=== PATIENT | male | born 1975 | race Caucasian/White ===

== ENCOUNTER 2020-04-09 10:04 | Outpatient (REF) | payer MEDICARE, MEDICAID, SELFPAY ==
[2020-04-09 12:37] LABS: Valproate 83.7 mcg/mL (50.0-100.0)
== END 2020-04-09 10:05 | disposition home or self-care (01) ==
LOC: HO.LAB 10:04
PROVIDERS: Visit Provider General Practice
DX: F41.9 Anxiety disorder, unspecified (principal); Z79.899 Other long term (current) drug therapy
CPT/HCPCS: 80164

== ENCOUNTER 2020-09-06 09:54 | Outpatient (REF) | payer MEDICARE, MEDICAID, SELFPAY ==
[2020-09-06 11:18] LABS: Ammonia 33 umol/L (13-55)
[2020-09-06 11:29] LABS: Alanine Aminotransferase 15 U/L (0-40); Albumin Level 4.4 g/dL (3.5-5.0); Alkaline Phosphatase 49 U/L (39-117); Aspartate Amino Transferase 15 U/L (5-37); Bilirubin Direct < 0.2 mg/dL (0.0-0.5); Bilirubin Total 0.4 mg/dL (0.0-1.0)
[2020-09-06 11:59] LABS: Valproate 41.1 mcg/mL (50.0-100.0)
== END 2020-09-06 09:55 | disposition home or self-care (01) ==
LOC: HO.HMGCLDS 09:54
PROVIDERS: Visit Provider General Practice
DX: F41.9 Anxiety disorder, unspecified (principal); Z79.899 Other long term (current) drug therapy
CPT/HCPCS: 36415; 80076; 80164; 82140

== ENCOUNTER 2021-12-31 15:11 | Observation (INO) | payer MEDICARE, MEDICAID, SELFPAY ==
--- NOTE | ~2021-12-31 | XR_ITS ---
EXAMINATION: XR CHEST CLINICAL INFORMATION: Seizure. COMPARISON: None TECHNIQUE: Frontal view of the chest was obtained. FINDINGS: No significant abnormality is noted involving the heart, lungs, mediastinum, bony thorax or soft tissues. XR/XR chest 1V IMPRESSION: No acute cardiopulmonary process.
--- NOTE | ~2021-12-31 | CT_ITS ---
EXAMINATION: NONCONTRAST HEAD CT NONCONTRAST CERVICAL SPINE CT INDICATION INFORMATION: Seizure. Head strike. COMPARISON: 01/24/2017 TECHNIQUE: Separate noncontrast CT examinations of the head and cervical spine were performed. Coronal and sagittal images were created for each examination at the technologist workstation. This CT examination was performed using dose optimization techniques as appropriate, variously including the following: *Automated exposure control *Adjustment of mA and/or kV according to patient size (this includes techniques or standardized protocols for targeted exams where dose is matched to indication/reason for exam; i.e. extremities or head) *Use of iterative reconstruction technique DLP: 07/05/2002 mGy-cm FINDINGS: Head: There is no evidence of acute intracranial hemorrhage or territorial infarction. No abnormal mass effect or midline shift is seen. Pérez to white matter differentiation is well preserved. No extra-axial fluid collections are identified. No hydrocephalus. Asymmetric atrophy of the left cerebral hemisphere. There is no abnormal attenuation within the brain parenchyma. No acute osseous or soft tissue abnormality. The mastoid air cells and visualized portions of the paranasal sinuses are well aerated. Cervical spine: There is anatomic alignment of the vertebral bodies and posterior elements. The atlantoaxial and atlantooccipital articulations are intact. Vertebral body heights are maintained. Disc space narrowing at C5-C6 with endplate osteophyte formation. There is scoliotic curvature of the spine. No evidence of acute fracture. No prevertebral soft tissue swelling. Visualized portions of the lung apices are unremarkable. The thyroid gland is unremarkable. CT/CT cervical spine wo con IMPRESSION: 1. No acute intracranial finding. Asymmetric left cerebral hemispheric atrophy. 2. No acute fracture or malalignment of the cervical spine.
[2021-12-31 15:23] VITALS: BP 116/78; PULSE 102; O2SAT 98
[2021-12-31 15:29] VITALS: BP 128/76; PULSE 89; RESP 14; TEMP 37.2; O2SAT 100
[2021-12-31 15:31] VITALS: BP 128/76; PULSE 89; RESP 18; TEMP 37.2; O2SAT 99; BMI 21.1
--- NOTE | 2021-12-31 15:45 | PC.NURSE ---
pt a&ox3, vss, pt has a seizure hx, switched to keppra about 2 months ago, first seizure since medication change. one unwitnessed, 2nd witnessed seizure by residential staff about 30-40 seconds. +ve head strike, pt has contusion above left eyebrow, pt denies pain at this time. seizure precautions initiated, color television console monitor applied - NSR. provider in room.
--- NOTE | 2021-12-31 15:48 | PC.NURSE ---
Allen Bustos - [facility] at [facility] ([facility]) .
--- NOTE | 2021-12-31 16:00 | ECG_ITS ---
Test Reason : seizure Blood Pressure : / mmHG Vent. Rate : 094 BPM Atrial Rate : 094 BPM P-R Int : 120 ms QRS Dur : 086 ms QT Int : 324 ms P-R-T Axes : 031 053 062 degrees QTc Int : 405 ms Normal sinus rhythm Normal ECG When compared with ECG of 28-MAY-2009 11:00, No significant change was found Referred By: Carolyn Parkinson Electronically Signed By:LUIS GÓMEZ
[2021-12-31] MEDS: LORazepam 2 MG/ML VIAL IM (16:18)
[2021-12-31 16:43] LABS: MANUAL DIFF FLAG NO
[2021-12-31 16:47] LABS: Basophils Percent Auto 0.2 % (0-2); Eosinophils Percent Auto 0.2 % (0-4); Hematocrit 39.2 % (42.0-52.0); Hemoglobin 13.4 g/dl (14.0-18.0); Imm Gran Abs Auto 0.02 X10*3/uL (0.00-0.03); Imm Gran Pct Auto 0.4 % (0.0-0.4); Lymphocytes Percent Auto 19.8 % (20-40); Mean Corpuscular HGB Conc 34.2 g/dl (31.0-36.0); Mean Corpuscular Hemoglobin 32.6 pg (27.0-33.0); Mean Corpuscular Volume 95.4 fL (80.0-98.0); Mean Platelet Volume 9.4 fL (9.4-12.4); Monocytes Absolute Auto 0.5 X10*3/uL (0.1-1.2); Monocytes Percent Auto 9.7 % (2-11); Neutrophils Absolute Auto 3.4 x10*3/uL (2.0-8.3); Neutrophils Percent Auto 69.7 % (45-73); Platelet Count 203 X10*3/uL (160-400); Red Blood Count 4.11 X10*6/uL (4.60-5.80); Red Cell Distribution Width 12.3 % (11.0-16.0); White Blood Count 4.8 X10*3/uL (4.8-10.8)
[2021-12-31 17:07] LABS: Alanine Aminotransferase 13 U/L (0-40); Albumin Level 4.6 g/dL (3.5-5.0); Alkaline Phosphatase 41 U/L (39-117); Anion Gap 16 (12-20); Aspartate Amino Transferase 18 U/L (5-37); Bilirubin Direct < 0.2 mg/dL (0.0-0.5); Bilirubin Total 0.2 mg/dL (0.0-1.0); Blood Urea Nitrogen 18 mg/dL (9-16); Calcium 9.4 mg/dL (8.4-10.2); Carbon Dioxide 23 mmol/L (22-29); Chloride 100 mmol/L (96-108); Creatinine Clr Calc Pharmacy 109.3; Estimated Glomerular Filt Rate > 60; Glucose Random 110 mg/dL (60-115); Lipase 22 U/L (8-78); Magnesium 1.8 mg/dL (1.6-2.6); Potassium 4.9 mmol/L (3.3-5.1); Sodium 134 mmol/L (135-145); Total Protein 7.3 g/dL (6.5-8.0)
--- NOTE | 2021-12-31 17:11 | ED_ITS ---
HPI - Seizure General Chief Complaint: Seizure Stated Complaint: seizure, eyebrow laceration Time Seen by Provider: 12/31/21 15:40 Source: patient and EMS Mode of arrival: EMS History of Present Illness HPI Narrative: 46-year-old male with past medical history anxiety, intellectual disability, seizure disorder on Depakote, carbamazepine, and Keppra presenting to the ED from long-term for 2 seizures [employer], 1st seizure unwitnessed, patient fell with + head strike, 2nd seizure shortly after patient maintained postural tone. Reports compliance with medications. Reports mild pain to forehead. Denies chest pain, shortness of breath, fever/recent sickness, cough, abdominal pain, nausea/vomiting. Denies taking anticoagulation MD complaint: seizure, possible seizure and feels seizure coming on Onset (ago): minute(s) Seizure History: Yes Place: [facility] Related Data Allergies Allergy/AdvReac Type Severity Reaction Status Date / Time No Known Allergies Allergy Verified 12/31/21 15:26 [No Known Allergies*] Review of Systems Review of Systems: Constitutional: No Fever, No Chills, No Fatigue, No Malaise ENT/Mouth: No Hearing loss, No Ear Pain, No Nasal Congestion, No sore throat, No Rhinorrhea, No Swallowing Difficulty Eyes: No Eye Pain, No Swelling, No Redness, No Vision Changes Cardiovascular: No Chest Pain, No SOB, No Dyspnea on Exertion,No Palpitations Respiratory: No Cough, No Sputum, No Dyspnea Gastrointestinal: No Nausea, No Vomiting, No Diarrhea, No Constipation, No Abdominal pain Genitourinary: No Dysuria, No Urinary Frequency, No Urinary Incontinence/ retention, No Flank Pain Musculoskeletal: No joint pain, No Myalgias, No Joint Swelling Skin: + Skin Lesions, No rash Neuro: No Weakness, No Numbness, No Paresthesias, No Loss of Consciousness, No Dizziness, + Head strike, +seizure Yes all other systems are reviewed and are negative Neurologic: Denies Abnormal speech present PMFSH Past Medical History Attestation statement: The following information was validated with the patient. Medical History Anxiety disorder, unspecified Intellectual disability Seizure disorder Social History Social History Alcohol intake: never Patient Tobacco Use Status: Never used Tobacco Use of substances other than those prescribed or required for medical reasons: No Advance Directives: No Advance Directives Information Provided: No Physical Exam Vital Signs: Vital Signs: Last Vital Signs Temp 98.9 F 12/31/21 15:31 Pulse 89 12/31/21 15:31 Resp 18 12/31/21 15:31 BP 128/76 12/31/21 15:31 Pulse Ox 99 12/31/21 15:31 O2 Del Method 12/31/21 15:31 BMI result Body Mass Index 21.1 Const: General: cooperative, healthy appearing and no acute distress Orientation/consciousness: patient oriented x3 Limitations: no limitations HEENT: Head: Yes normal to inspection, No Luis's sign, Yes hematoma (Left forehead with mild tenderness), No laceration and No raccoon eyes Ears: hearing grossly normal bilaterally General nose exam: Normal external nose present Face and sinus: Yes normal facial exam Throat: Yes posterior oropharynx normal Eyes: General: appearance normal, both eyes and all related structures Pupils: Equal, round and reactive pupils present EOM: EOMs intact bilaterally Neck: Other: No midline cervical spinous tenderness Neck: Yes normal visual inspection, Yes no lymphadenopathy and Yes no meningeal signs Resp: Effort & Inspection: normal respiratory effort and no respiratory distress Auscultation: clear to auscultation bilaterally, no rales, no rhonchi and no wheezes Cardio: Rate: regular rate Heart sounds: S1 normal heart sound present and S2 normal heart sound present GI: Inspection: Yes normal to inspection Palpation (GI): Soft to palpation, nontender, no guarding and not rigid : General: Yes no CVA tenderness Back/Spine/Pelvis: Other: No midline thoracic/lumbar spinous tenderness/step-off or deformity Back: no CVA tenderness Skin: Rashes: no rashes Wounds: no wounds Neuro: General: patient oriented x3, tone normal, moves all extremities, no meningeal signs, no focal motor deficits and CN's II-XI intact bilaterally Cranial nerves: Yes CN's II-XII intact bilaterally, Yes Equal, round and reactive pupils present and Yes Bilaterally intact EOM present Speech: No Abnormal speech present Gait exam (Neuro): Normal gait present Motor exam (neuro): 5/5 motor strength present throughout Extrem: General: Yes normal to inspection Course Course Course Narrative: -patient had witnessed seizure in the ED by long-term staff member, reportedly tonic clonic seizure. Patient did appear lethargic/postictal after incident > was given 2 mg of IM Ativan -consult in patient's neurologist Dr. Nito Tamayo at [facility] who reports patient has psychogenic and real seizures. -1720--no leukocytosis. COVID-19 negative XR chest 1V IMPRESSION: No acute cardiopulmonary process. -lactic acid elevated to 2.3 > consistent with true seizure. Will give additional 500mg IV Keppra in the ED. Plan to admit -1900--ED care transferred to [facility] pending CT results and admission MDM - Seizure MDM Narrative Medical decision making narrative: 46-year-old male with past medical history anxiety, intellectual disability, seizure disorder on Depakote, carbamazepine, and Keppra presenting to the ED from long-term for 2 seizures [employer], 1st seizure unwitnessed, patient fell with + head strike, 2nd seizure shortly after patient maintained postural tone. On exam vital signs stable, NAD, nontoxic appearing, hematoma noted to left forehead, no focal neuro deficits. long-term staff reports patient has been compliant with medications per their records. Concern for ICH vs infectious etiology vs metabolic abnormalities Plan: EKG, labs, UA, CXR, head/C-spine CT Differential Diagnosis Differential diagnosis: Likely intractable seizure disorder, focal seizure, generalized seizure and epileptic seizure Medical Records Attestation: I reviewed the patient's medical records. Lab Data Attestation: I reviewed the patient's lab results. Result diagrams: 12/31/21 16:36 12/31/21 16:51 Labs: Lab Results 12/31/21 12/31/21 12/31/21 Range/Units 16:35 16:36 16:51 WBC 4.8 (4.8-10.8) X10*3/uL RBC 4.11 L (4.60-5.80) X10*6/uL Hgb 13.4 L (14.0-18.0) g/dl Hct 39.2 L (42.0-52.0) % MCV 95.4 (80.0-98.0) fL MCH 32.6 (27.0-33.0) pg MCHC 34.2 (31.0-36.0) g/dl RDW 12.3 (11.0-16.0) % Plt Count 203 (160-400) X10*3/uL MPV 9.4 (9.4-12.4) fL Immature Gran % (Auto) 0.4 (0.0-0.4) % Neut % (Auto) 69.7 (45-73) % Lymph % (Auto) 19.8 L (20-40) % Craig % (Auto) 9.7 (2-11) % Eos % (Auto) 0.2 (0-4) % Baso % (Auto) 0.2 (0-2) % Lymph # (Auto) 1.0 L (1.2-4.9) X10*3/uL Craig # (Auto) 0.5 (0.1-1.2) X10*3/uL Eos # (Auto) 0.0 (0.0-0.4) X10*3/uL Baso # (Auto) 0.0 (0.0-0.2) X10*3/uL Abs Immat Gran (auto) 0.02 (0.00-0.03) X10*3/uL Absolute Neuts (auto) 3.4 (2.0-8.3) x10*3/uL Absolute Nucleated RBC 0.000 (0.0-0.012) X10*3/uL Nucleated RBC % (auto) 0.0 (0.0-0.2) /100WBC Sodium 134 L (135-145) mmol/L Potassium 4.9 (3.3-5.1) mmol/L Chloride 100 (96-108) mmol/L Carbon Dioxide 23 (22-29) mmol/L Anion Gap 16 (12-20) BUN 18 H (9-16) mg/dL Creatinine 0.68 (0.5-1.4) mg/dL Estim Creat Clear Calc 109.3 Estimated GFR > 60 Random Glucose 110 (60-115) mg/dL Lactic Acid (0.5-2.0) mmol/L Calcium 9.4 (8.4-10.2) mg/dL Magnesium 1.8 (1.6-2.6) mg/dL Total Bilirubin 0.2 (0.0-1.0) mg/dL Direct Bilirubin < 0.2 (0.0-0.5) mg/dL AST 18 (5-37) U/L ALT 13 (0-40) U/L Alkaline Phosphatase 41 (39-117) U/L Total Protein 7.3 (6.5-8.0) g/dL Albumin 4.6 (3.5-5.0) g/dL Lipase 22 (8-78) U/L Urine Color Urine Appearance Urine pH (5.0-8.0) Ur Specific [place] (1.005-1.025) Urine Protein (NEG-TRACE) MG/DL Urine Glucose (UA) (NEG) MG/DL Urine Ketones (NEG) MG/DL Urine Blood (NEG) Urine Nitrite (NEG) Ur Leukocyte Esterase (NEG) Valproic Acid 58.1 (50.0-100.0) mcg/mL Carbamazepine 7.0 (5.0-12.0) mcg/mL COVID-19 (JANICE) Negative (Negative) COVID-19 Clin Com See Note 12/31/21 12/31/21 Range/Units 16:51 17:34 WBC (4.8-10.8) X10*3/uL RBC (4.60-5.80) X10*6/uL Hgb (14.0-18.0) g/dl Hct (42.0-52.0) % MCV (80.0-98.0) fL MCH (27.0-33.0) pg MCHC (31.0-36.0) g/dl RDW (11.0-16.0) % Plt Count (160-400) X10*3/uL MPV (9.4-12.4) fL Immature Gran % (Auto) (0.0-0.4) % Neut % (Auto) (45-73) % Lymph % (Auto) (20-40) % Craig % (Auto) (2-11) % Eos % (Auto) (0-4) % Baso % (Auto) (0-2) % Lymph # (Auto) (1.2-4.9) X10*3/uL Craig # (Auto) (0.1-1.2) X10*3/uL Eos # (Auto) (0.0-0.4) X10*3/uL Baso # (Auto) (0.0-0.2) X10*3/uL Abs Immat Gran (auto) (0.00-0.03) X10*3/uL Absolute Neuts (auto) (2.0-8.3) x10*3/uL Absolute Nucleated RBC (0.0-0.012) X10*3/uL Nucleated RBC % (auto) (0.0-0.2) /100WBC Sodium (135-145) mmol/L Potassium (3.3-5.1) mmol/L Chloride (96-108) mmol/L Carbon Dioxide (22-29) mmol/L Anion Gap (12-20) BUN (9-16) mg/dL Creatinine (0.5-1.4) mg/dL Estim Creat Clear Calc Estimated GFR Random Glucose (60-115) mg/dL Lactic Acid 2.3 H* (0.5-2.0) mmol/L Calcium (8.4-10.2) mg/dL Magnesium (1.6-2.6) mg/dL Total Bilirubin (0.0-1.0) mg/dL Direct Bilirubin (0.0-0.5) mg/dL AST (5-37) U/L ALT (0-40) U/L Alkaline Phosphatase (39-117) U/L Total Protein (6.5-8.0) g/dL Albumin (3.5-5.0) g/dL Lipase (8-78) U/L Urine Color YELLOW Urine Appearance CLEAR Urine pH 7.0 (5.0-8.0) Ur Specific [place] 1.015 (1.005-1.025) Urine Protein NEG (NEG-TRACE) MG/DL Urine Glucose (UA) NEG (NEG) MG/DL Urine Ketones 5 (NEG) MG/DL Urine Blood NEG (NEG) Urine Nitrite NEG (NEG) Ur Leukocyte Esterase NEG (NEG) Valproic Acid (50.0-100.0) mcg/mL Carbamazepine (5.0-12.0) mcg/mL COVID-19 (JANICE) (Negative) COVID-19 Clin Com Discharge Plan Discharge Clinical Impression: Epileptic seizure Patient Disposition: Admitted As Inpatient
[2021-12-31 17:13] LABS: COVID-19 Test Negative (Negative); IDNOW Serial# 16C4AD1C
[2021-12-31] MEDS: clonazePAM 0.5 MG TABLET PO ×2 (17:29→22:46)
--- NOTE | 2021-12-31 17:30 | PC.NURSE ---
pt medicated per provider order. pt pending CT scan.
[2021-12-31 17:37] LABS: Lactic Acid 2.3 mmol/L (0.5-2.0); Valproate 58.1 mcg/mL (50.0-100.0)
[2021-12-31 17:53] LABS: Appearance Urine CLEAR; Color Urine YELLOW; Glucose Urine UA NEG (NEG); Leukocyte Esterase Urine NEG (NEG); Nitrite Urine NEG (NEG); Specific Gravity - Urine 1.015 (1.005-1.025); Urine Blood NEG (NEG); Urine Ketones 5 MG/DL (NEG); Urine Protein NEG (NEG-TRACE)
[2021-12-31 18:00] VITALS: BP 124/93; PULSE 84; RESP 11; O2SAT 98
--- NOTE | 2021-12-31 18:00 | PC.NURSE ---
spoke w kitchen, called in diet order.
[2021-12-31 18:54] LABS: Reflex Lactate? Lactic Acid Added
[2021-12-31] MEDS: levETIRAcetam in NaCl (iso-os) 500 MG/100 ML PIGGYBACK 400 MG IV (19:16)
--- NOTE | 2021-12-31 20:49 | PHA.MEDREC ---
Pharmacy Consult ? Medication Reconciliation Pharmacy has completed the medication reconciliation.
[2021-12-31 21:04] VITALS: BP 137/96; PULSE 74; RESP 19; TEMP 37; O2SAT 99
--- NOTE | 2021-12-31 22:02 | P.HPHOSP_ITS ---
History of Present Illness Date of Service: 12/31/21 Chief Complaint: breakthrough 46 yo M with hx of anoxic brain injury at , hx of seizures, w breakthrough seizures, and intellectual disability presents to the hospital with seizure episode. According to reports by EMS patient had 2 episodes of seizure episodes at residence, he had another episode in the ED treated with 2 mg of IM Ativan and 500 of IV Keppra. This was discussed with the patient's neurologist at [facility] and he recommended admission for observation. Patient now alert oriented, conversant, father at bedside of [facility] that he has history of big 3 seizure seizures despite being on 3 various medications. He reports that he was recently started on Keppra which seems to have improved his number of breakthrough seizures, with last episode about 2 and half months ago. Patient has no headache, no change in vision, no chest pain, no shortness of breath, no abdominal pain nausea vomiting, no diarrhea constipation, no urinary symptoms and no lower extremity edema On arrival to the ED patient hemodynamically stable with no significant abnormal vitals Labs unremarkable except for lactic acid of 2.3 that improved with fluids. UA negative Head CT negative with no intracranial findings. Patient will be admitted for observation Review of Systems Review of Systems: Yes all other systems are reviewed and are negative [facility] Medical History (Updated 01/01/22 @ 07:46 by Roni Zimmerman MD) Anxiety disorder, unspecified Intellectual disability Seizure disorder Family History (Updated 01/01/22 @ 07:45 by Roni Zimmerman MD) Other No family history of coronary artery disease Surgical History (Updated 01/01/22 @ 07:46 by Roni Zimmerman MD) No pertinent past surgical history Social History Alcohol intake: never Patient Tobacco Use Status: Never used Tobacco Use of substances other than those prescribed or required for medical reasons: No Advance Directives: No Advance Directives Information Provided: No Meds Allergies Allergy/AdvReac Type Severity Reaction Status Date / Time No Known Allergies Allergy Verified 12/31/21 15:26 [No Known Allergies*] Active Medications: Current Medications Acetaminophen (Acetaminophen 325 Mg Tablet) 650 mg PO Q6H PRN PRN Reason: Pain, Mild (Pain Scale 1-3) Docusate Sodium (Docusate Sodium 100 Mg Capsule) 100 mg PO DAILY PRN PRN Reason: Constipation Ondansetron HCl (Ondansetron Hcl 4 Mg/2 Ml Vial) 4 mg IVPUSH Q8H PRN PRN Reason: Nausea and Vomiting Pharmacy Consult (Consult Rx Perform Med Rec) 1 each MISCELLANE ONCE PRN PRN Reason: Consult order Sodium Chloride (0.9 % Sodium Chloride Flush 3 Ml Syringe) 3 ml IVFLUSH [facility] Medications Medication Instructions Recorded Confirmed Last Taken Type calcium carbonate 200 mg calcium 1,000 mg PO DAILY 12/31/21 12/31/21 12/31/21 History (500 mg) chewable tablet (Juan-Gest Antacid) carbamazepine 400 mg 1 tab PO BID 12/31/21 12/31/21 12/31/21 History tablet,extended release,12 hr cetirizine 10 mg tablet (Zyrtec) 10 mg PO DAILY PRN post nasal drip 12/31/21 12/31/21 Unknown History cholecalciferol (vitamin D3) 50 100 mcg PO DAILY 12/31/21 12/31/21 12/31/21 History mcg (2,000 unit) tablet (Vitamin D3) clonazepam 0.5 mg tablet 0.5 mg PO BID 12/31/21 12/31/21 12/31/21 History clonazepam 0.5 mg tablet 1 mg PO DAILY 12/31/21 12/31/21 12/31/21 History clonidine HCl 0.1 mg tablet 1 tab PO DAILY PRN 12/31/21 12/31/21 Unknown History AGITATION,AGGRESSIVENESS diclofenac sodium 1 % topical gel 1 g topical TID PRN Pain (Scale 12/31/21 12/31/21 Unknown History Score 4-6) divalproex 500 mg tablet,delayed 2 tab PO BID 12/31/21 12/31/21 12/31/21 History release docusate sodium 100 mg capsule 100 mg PO BID 12/31/21 12/31/21 12/31/21 History (Colace) levetiracetam 1,000 mg tablet 1 tab PO BID 12/31/21 12/31/21 12/31/21 History lorazepam 2 mg tablet 1 tab PO TID PRN Seizures 12/31/21 12/31/21 Unknown History multivitamin 1 tab PO DAILY 12/31/21 12/31/21 12/31/21 History omega [id number]-fish oil 1,000 mg 1 cap PO DAILY 12/31/21 12/31/21 12/31/21 History (120 mg-180 mg) capsule (Fish Oil) risperidone 0.5 mg tablet 1 tab PO BID 12/31/21 12/31/21 12/31/21 History urea 15 gram oral powder packet 1 packet PO BID 12/31/21 12/31/21 Unknown History Physical Exam Vital Signs and Narrative: Vital Signs: Last Vital Signs Temp 98.6 F 12/31/21 21:04 Pulse 74 12/31/21 21:04 Resp 19 12/31/21 21:04 BP 137/96 H 12/31/21 21:04 Pulse Ox 99 12/31/21 21:04 O2 Del Method 12/31/21 21:04 BMI result Body Mass Index 21.1 Results Labs CBC and Chem 7: 01/01/22 04:33 01/01/22 04:33 Labs: Laboratory Results - last 24 hr 12/31/21 12/31/21 12/31/21 16:35 16:36 16:51 MCV 95.4 MCH 32.6 MCHC 34.2 RDW 12.3 Plt Count 203 MPV 9.4 Immature Gran % (Auto) 0.4 Neut % (Auto) 69.7 Lymph % (Auto) 19.8 L [place] % (Auto) 9.7 Eos % (Auto) 0.2 Baso % (Auto) 0.2 Lymph # (Auto) 1.0 L [place] # (Auto) 0.5 Eos # (Auto) 0.0 Baso # (Auto) 0.0 Abs Immat Gran (auto) 0.02 Absolute Neuts (auto) 3.4 Absolute Nucleated RBC 0.000 Nucleated RBC % (auto) 0.0 Anion Gap 16 Estim Creat Clear Calc 109.3 Estimated GFR > 60 Random Glucose 110 Lactic Acid Lactic Acid F/U @ 2Hr Calcium 9.4 Magnesium 1.8 Total Bilirubin 0.2 Direct Bilirubin < 0.2 AST 18 ALT 13 Alkaline Phosphatase 41 Total Protein 7.3 Albumin 4.6 Lipase 22 Urine Color Urine Appearance Urine pH Ur Specific [place] Urine Protein Urine Glucose (UA) Urine Ketones Urine Blood Urine Nitrite Ur Leukocyte Esterase Valproic Acid 58.1 Carbamazepine 7.0 COVID-19 (JANICE) Negative COVID-19 Clin Com See Note 12/31/21 12/31/21 12/31/21 16:51 17:34 19:23 MCV MCH MCHC RDW Plt Count MPV Immature Gran % (Auto) Neut % (Auto) Lymph % (Auto) [place] % (Auto) Eos % (Auto) Baso % (Auto) Lymph # (Auto) [place] # (Auto) Eos # (Auto) Baso # (Auto) Abs Immat Gran (auto) Absolute Neuts (auto) Absolute Nucleated RBC Nucleated RBC % (auto) Anion Gap Estim Creat Clear Calc Estimated GFR Random Glucose Lactic Acid 2.3 H* Lactic Acid F/U @ 2Hr 1.0 Calcium Magnesium Total Bilirubin Direct Bilirubin AST ALT Alkaline Phosphatase Total Protein Albumin Lipase Urine Color YELLOW Urine Appearance CLEAR Urine pH 7.0 Ur Specific [place] 1.015 Urine Protein NEG Urine Glucose (UA) NEG Urine Ketones 5 Urine Blood NEG Urine Nitrite NEG Ur Leukocyte Esterase NEG Valproic Acid Carbamazepine COVID-19 (JANICE) COVID-19 Clin Com Imaging Radiologist's Impressions: Impressions Chest X-Ray 12/31/21 16:15 IMPRESSION: No acute cardiopulmonary process. Cervical Spine CT 12/31/21 18:06 IMPRESSION: 1. No acute intracranial finding. Asymmetric left cerebral hemispheric atrophy. 2. No acute fracture or malalignment of the cervical spine. Head CT 12/31/21 18:06 IMPRESSION: 1. No acute intracranial finding. Asymmetric left cerebral hemispheric atrophy. 2. No acute fracture or malalignment of the cervical spine. Assessment and Plan (1) Breakthrough seizure: Status: Acute Plan #breakthrough seizures - hx of epileptic seizures and multiple breakthough seizures per family - will observe - PRN IV keppra if needed overnight as father reports pt does not respond well to Ativan DVT PPX: early ambulation Quality Stroke Does the patient have a stroke diagnosis?: No VTE Prior VTE?: No VTE Risk Level:: Medical - low VTE Device Contraindication: N/A - Device Ordered VTE Drug Contraindication: Treatment Not Indicated
[2021-12-31] MEDS: levETIRAcetam 1,000 MG TABLET 1000 MG PO (22:47)
[2021-12-31] MEDS: risperiDONE 0.5 MG TABLET PO (22:47)
[2021-12-31] MEDS: Docusate Sodium 100 MG CAPSULE PO (22:47)
[2021-12-31] MEDS: Divalproex Sodium 500 MG TABLET.DR 1000 MG PO (22:49)
[2021-12-31 23:54] VITALS: BP 170/101; PULSE 74; RESP 13; TEMP 36.6; O2SAT 98
[2022-01-01] MEDS: Acetaminophen 325 MG TABLET 650 MG PO (00:38)
[2022-01-01] MEDS: 0.9 % Sodium Chloride Flush 3 ML SYRINGE IVFLUSH ×2 (00:39→09:06)
[2022-01-01 04:34] VITALS: BP 109/63; PULSE 68; RESP 16; TEMP 36.6; O2SAT 100
[2022-01-01 04:49] LABS: MANUAL DIFF FLAG NO
[2022-01-01 04:50] LABS: Basophils Percent Auto 0.4 % (0-2); Eosinophils Absolute Auto 0.1 X10*3/uL (0.0-0.4); Eosinophils Percent Auto 1.1 % (0-4); Imm Gran Abs Auto 0.03 X10*3/uL (0.00-0.03); Imm Gran Pct Auto 0.4 % (0.0-0.4); Lymphocytes Absolute Auto 2.8 X10*3/uL (1.2-4.9); Lymphocytes Percent Auto 39.2 % (20-40); Mean Corpuscular HGB Conc 35.1 g/dl (31.0-36.0); Mean Corpuscular Hemoglobin 33.1 pg (27.0-33.0); Mean Corpuscular Volume 94.1 fL (80.0-98.0); Mean Platelet Volume 9.4 fL (9.4-12.4); Monocytes Absolute Auto 0.8 X10*3/uL (0.1-1.2); Monocytes Percent Auto 11.6 % (2-11); Neutrophils Absolute Auto 3.3 x10*3/uL (2.0-8.3); Neutrophils Percent Auto 47.3 % (45-73); Platelet Count 198 X10*3/uL (160-400); Red Blood Count 3.93 X10*6/uL (4.60-5.80); White Blood Count 7.1 X10*3/uL (4.8-10.8)
[2022-01-01 05:07] LABS: Anion Gap 11 (12-20); Blood Urea Nitrogen 13 mg/dL (9-16); Calcium 8.7 mg/dL (8.4-10.2); Carbon Dioxide 25 mmol/L (22-29); Chloride 98 mmol/L (96-108); Creatinine Clr Calc Pharmacy 112.7; Estimated Glomerular Filt Rate > 60; Glucose Random 85 mg/dL (60-115); Potassium 3.8 mmol/L (3.3-5.1); Sodium 130 mmol/L (135-145)
[2022-01-01 08:45] VITALS: BP 115/78; PULSE 66; RESP 15; O2SAT 97
[2022-01-01] MEDS: Cholecalciferol (Vitamin D3) 25 MCG TABLET 100 MCG PO (09:04)
[2022-01-01] MEDS: Divalproex Sodium 500 MG TABLET.DR 1000 MG PO (09:04)
[2022-01-01] MEDS: Docusate Sodium 100 MG CAPSULE PO (09:05)
[2022-01-01] MEDS: clonazePAM 0.5 MG TABLET PO (09:05)
[2022-01-01] MEDS: Multivitamin TABLET 1 TAB PO (09:05)
[2022-01-01] MEDS: levETIRAcetam 1,000 MG TABLET 1000 MG PO (09:05)
[2022-01-01] MEDS: risperiDONE 0.5 MG TABLET PO (09:05)
[2022-01-01] MEDS: clonazePAM 1 MG TABLET PO (09:05)
--- NOTE | 2022-01-01 09:49 | PM.DS ---
DS: Providers Provider Date of Service: 01/01/22 Date of admission: 12/31/21 21:56 Primary care physician: Unknown Physician DS: Diagnosis Discharge Diagnosis (1) Breakthrough seizure: Status: Acute DS: Summary Hospital Course Hospital Course: Chief Complaint: breakthrough 46 yo M with hx of anoxic brain injury at , hx of seizures, w breakthrough seizures, and intellectual disability presents to the hospital with seizure episode.? According to reports by EMS patient had 2 episodes of seizure episodes at residence, he had another episode in the ED treated with 2 mg of IM Ativan and 500 of IV Keppra.? This was discussed with the patient's neurologist at [facility] and he recommended admission for observation. Patient now alert oriented, conversant, father at bedside of [facility] that he has history of big 3 seizure seizures despite being on 3 various medications.? He reports that he was recently started on Keppra which seems to have improved his number of breakthrough seizures, with last episode about 2 and half months ago.? Patient has no headache, no change in vision, no chest pain, no shortness of breath, no abdominal pain nausea vomiting, no diarrhea constipation, no urinary symptoms and no lower extremity edema On arrival to the ED patient hemodynamically stable with no significant abnormal vitals Labs unremarkable except for lactic acid of 2.3 that improved with fluids.? UA negative Head CT negative with no intracranial findings. Patient will be admitted for observation\ Hospital course: Well know for seizure desorder and presented with breakthrough seizure given ativan and Keppra and no further seizure and will discharge to continue usual meds and to follow up with his neuroligs. Time Spent with Patient Time attestation: Total time spent providing and/or coordinating discharge services: Discharge coordination time: Greater than 30 minutes Quality: Safe Use of Opioids Does Pt have an Active Cancer Diagnosis on the Problem List?: No Quality: Stroke Does the patient have a stroke diagnosis?: No Physical Exam Vital Signs: Vital Signs: Last Vital Signs Temp 97.9 F 01/01/22 04:34 Pulse 66 01/01/22 08:45 Resp 15 01/01/22 08:45 BP 115/78 01/01/22 08:45 Pulse Ox 97 01/01/22 08:45 O2 Del Method 01/01/22 08:45 BMI result Body Mass Index 21.1 DS: Data Data Completed and Pending Labs on day of discharge: Laboratory Results - last 24 hr 12/31/21 12/31/21 12/31/21 16:35 16:36 16:51 WBC 4.8 RBC 4.11 L Hgb 13.4 L Hct 39.2 L MCV 95.4 MCH 32.6 MCHC 34.2 RDW 12.3 Plt Count 203 MPV 9.4 Immature Gran % (Auto) 0.4 Neut % (Auto) 69.7 Lymph % (Auto) 19.8 L [place] % (Auto) 9.7 Eos % (Auto) 0.2 Baso % (Auto) 0.2 Lymph # (Auto) 1.0 L [place] # (Auto) 0.5 Eos # (Auto) 0.0 Baso # (Auto) 0.0 Abs Immat Gran (auto) 0.02 Absolute Neuts (auto) 3.4 Absolute Nucleated RBC 0.000 Nucleated RBC % (auto) 0.0 Sodium 134 L Potassium 4.9 Chloride 100 Carbon Dioxide 23 Anion Gap 16 BUN 18 H Creatinine 0.68 Estim Creat Clear Calc 109.3 Estimated GFR > 60 Random Glucose 110 Lactic Acid Lactic Acid F/U @ 2Hr Calcium 9.4 Magnesium 1.8 Total Bilirubin 0.2 Direct Bilirubin < 0.2 AST 18 ALT 13 Alkaline Phosphatase 41 Total Protein 7.3 Albumin 4.6 Lipase 22 Urine Color Urine Appearance Urine pH Ur Specific [place] Urine Protein Urine Glucose (UA) Urine Ketones Urine Blood Urine Nitrite Ur Leukocyte Esterase Valproic Acid 58.1 Carbamazepine 7.0 COVID-19 (JANICE) Negative COVID-19 Clin Com See Note 12/31/21 12/31/21 12/31/21 16:51 17:34 19:23 WBC RBC Hgb Hct MCV MCH MCHC RDW Plt Count MPV Immature Gran % (Auto) Neut % (Auto) Lymph % (Auto) [place] % (Auto) Eos % (Auto) Baso % (Auto) Lymph # (Auto) [place] # (Auto) Eos # (Auto) Baso # (Auto) Abs Immat Gran (auto) Absolute Neuts (auto) Absolute Nucleated RBC Nucleated RBC % (auto) Sodium Potassium Chloride Carbon Dioxide Anion Gap BUN Creatinine Estim Creat Clear Calc Estimated GFR Random Glucose Lactic Acid 2.3 H* Lactic Acid F/U @ 2Hr 1.0 Calcium Magnesium Total Bilirubin Direct Bilirubin AST ALT Alkaline Phosphatase Total Protein Albumin Lipase Urine Color YELLOW Urine Appearance CLEAR Urine pH 7.0 Ur Specific [place] 1.015 Urine Protein NEG Urine Glucose (UA) NEG Urine Ketones 5 Urine Blood NEG Urine Nitrite NEG Ur Leukocyte Esterase NEG Valproic Acid Carbamazepine COVID-19 (JANICE) COVID-19 Rentalutions 01/01/22 01/01/22 04:33 04:33 WBC 7.1 RBC 3.93 L Hgb 13.0 L Hct 37.0 L MCV 94.1 MCH 33.1 H MCHC 35.1 RDW 12.0 Plt Count 198 MPV 9.4 Immature Gran % (Auto) 0.4 Neut % (Auto) 47.3 Lymph % (Auto) 39.2 [place] % (Auto) 11.6 H Eos % (Auto) 1.1 Baso % (Auto) 0.4 Lymph # (Auto) 2.8 [place] # (Auto) 0.8 Eos # (Auto) 0.1 Baso # (Auto) 0.0 Abs Immat Gran (auto) 0.03 Absolute Neuts (auto) 3.3 Absolute Nucleated RBC 0.000 Nucleated RBC % (auto) 0.0 Sodium 130 L Potassium 3.8 D Chloride 98 Carbon Dioxide 25 Anion Gap 11 L BUN 13 Creatinine 0.66 Estim Creat Clear Calc 112.7 Estimated GFR > 60 Random Glucose 85 Lactic Acid Lactic Acid F/U @ 2Hr Calcium 8.7 D Magnesium Total Bilirubin Direct Bilirubin AST ALT Alkaline Phosphatase Total Protein Albumin Lipase Urine Color Urine Appearance Urine pH Ur Specific [place] Urine Protein Urine Glucose (UA) Urine Ketones Urine Blood Urine Nitrite Ur Leukocyte Esterase Valproic Acid Carbamazepine COVID-19 (JANICE) COVID-19 [employer] Com Discharge Plan Discharge Anticipated Discharge Date/Time: 01/01/22 09:44 Patient Disposition: Home, Self-Care Discharge Diagnosis: Breakthrough Seizure Referrals: Physician,Unknown J [Primary Care Provider] - 1 Week Discharge Medications: Continued multivitamin Tablet 1 tab PO DAILY clonidine HCl 0.1 mg tablet 1 tab PO DAILY PRN (Reason: AGITATION,AGGRESSIVENESS) cetirizine [Zyrtec] 10 mg Tablet 10 mg PO DAILY PRN (Reason: post nasal drip) clonazepam 0.5 mg tablet 0.5 mg PO BID clonazepam 0.5 mg tablet 1 mg PO DAILY divalproex 500 mg tablet,delayed release (DR/EC) 2 tab PO BID carbamazepine 400 mg tablet extended release 12 hr 1 tab PO BID lorazepam 2 mg tablet 1 tab PO TID PRN (Reason: Seizures) calcium carbonate [Juan-Gest Antacid] 200 mg calcium (500 mg) Tablet,Chewable 1,000 mg PO DAILY docusate sodium [Colace] 100 mg Capsule 100 mg PO BID risperidone 0.5 mg tablet 1 tab PO BID levetiracetam 1,000 mg tablet 1 tab PO BID diclofenac sodium 1 % Gel 1 g TOPICAL TID PRN (Reason: Pain (Scale Score 4-6)) cholecalciferol (vitamin D3) [Vitamin D3] 50 mcg (2,000 unit) Tablet 100 mcg PO DAILY omega 2-iud-qio-fish oil [Fish Oil] 1,000 mg (120 mg-180 mg) Capsule 1 cap PO DAILY urea 15 gram Powder In Packet 1 packet PO BID Discharge Orders: Discharge Order (Routine); Ordered 01/01/22 Ordered By: Gamal Nova Diet: Advance to usual diet Activity on Discharge: As tolerated Stand Alone Forms: Patient Portal Discharge page Care Plan Goals: control of seizures Health Concerns: headache and high blood pressure that is now resolved Plan of Treatment: Take your medication as prescribed and follow up with your Neurologist Assessment: as above
[2022-01-01] MEDS: carBAMazepine ER 200 MG TAB.ER.12H 400 MG PO (10:46)
[2022-01-01] MEDS: Urea 15 GM POWDER PO (10:46)
--- NOTE | 2022-01-01 12:48 | MHC.CM.PN ---
PT DISCHARGED PRIOR TO BEING SEEN BY CM
== END 2022-01-01 11:00 | disposition home or self-care (01) ==
LOC: HO.ED 18:49 → HO.EDOVER 22:08
PROVIDERS: Physician Assistant; Admitting Provider Internal Medicine; Emergency Provider Emergency Medicine; Visit Provider Internal Medicine
DX: G40.919 Epilepsy, unspecified, intractable, without status epilepticus (principal); S00.83XA Contusion of other part of head, initial encounter; W19.XXXA Unspecified fall, initial encounter; F41.9 Anxiety disorder, unspecified; F79 Unspecified intellectual disabilities; Z20.822 Contact with and (suspected) exposure to COVID-19; Z79.899 Other long term (current) drug therapy; Y93.9 Activity, unspecified; Y92.019 Unspecified place in single-family (private) house as the place of occurrence of the external cause; Y99.9 Unspecified external cause status
CPT/HCPCS: 36415; 70450; 71045; 72125; 80048; 80076; 80156; 80164; 80177; 81003; 83605; 83690; 83735; 85025; 87635; 93005; 96365; 96372; 96375; 99218; 99285; J1953; J2060

== ENCOUNTER 2022-01-07 21:55 | Emergency (ER) | payer MEDICARE, MEDICAID, SELFPAY ==
[2022-01-07] MEDS: LORazepam 2 MG/ML VIAL 1 MG IVPUSH (22:00)
[2022-01-07 22:02] VITALS: BP 170/110; PULSE 98; O2SAT 98; BMI 20.9
[2022-01-07 22:06] VITALS: BP 171/105; PULSE 95; RESP 12; TEMP 37.2; O2SAT 97
[2022-01-07 22:16] LABS: Glucose, Whole Blood 108 mg/dL (60-115)
--- NOTE | 2022-01-07 22:19 | ED_ITS ---
HPI - Seizure General Chief Complaint: Seizure Stated Complaint: seizure Time Seen by Provider: 01/07/22 22:16 Source: patient and EMS Mode of arrival: EMS Limitations: other (Intellectual developmental disorder) History of Present Illness HPI Narrative: Patient comes to the emergency room by EMS from his senior care. Seems that earlier today starting at 20:30, patient had a seizure. Approximately 1 hour later he had a 2nd seizure, and prior to arrival in the ambulance [place] he had a 3rd seizure. Patient states that he did not take his medication. Patient is unable to give significant history, patient states he feels well. Patient does not seem postictal despite having a seizure couple of minutes ago Seizure History: Yes Related Data Home Medications Medication Instructions Recorded Confirmed calcium carbonate 200 mg calcium 1,000 mg PO DAILY 12/31/21 12/31/21 (500 mg) chewable tablet (Juan-Gest Antacid) carbamazepine 400 mg 1 tab PO BID 12/31/21 12/31/21 tablet,extended release,12 hr cetirizine 10 mg tablet (Zyrtec) 10 mg PO DAILY PRN post nasal drip 12/31/21 12/31/21 cholecalciferol (vitamin D3) 50 100 mcg PO DAILY 12/31/21 12/31/21 mcg (2,000 unit) tablet (Vitamin D3) clonazepam 0.5 mg tablet 0.5 mg PO BID 12/31/21 12/31/21 clonazepam 0.5 mg tablet 1 mg PO DAILY 12/31/21 12/31/21 clonidine HCl 0.1 mg tablet 1 tab PO DAILY PRN 12/31/21 12/31/21 AGITATION,AGGRESSIVENESS diclofenac sodium 1 % topical gel 1 g topical TID PRN Pain (Scale 12/31/21 12/31/21 Score 4-6) divalproex 500 mg tablet,delayed 2 tab PO BID 12/31/21 12/31/21 release docusate sodium 100 mg capsule 100 mg PO BID 12/31/21 12/31/21 (Colace) levetiracetam 1,000 mg tablet 1 tab PO BID 12/31/21 12/31/21 lorazepam 2 mg tablet 1 tab PO TID PRN Seizures 12/31/21 12/31/21 multivitamin 1 tab PO DAILY 12/31/21 12/31/21 omega 4-tny-ctq-fish oil 1,000 mg 1 cap PO DAILY 12/31/21 12/31/21 (120 mg-180 mg) capsule (Fish Oil) risperidone 0.5 mg tablet 1 tab PO BID 12/31/21 12/31/21 urea 15 gram oral powder packet 1 packet PO BID 12/31/21 12/31/21 Allergies Allergy/AdvReac Type Severity Reaction Status Date / Time No Known Allergies Allergy Verified 12/31/21 15:26 [No Known Allergies*] Review of Systems Review of Systems: Of note, patient is poor historian, has no complaints at this time. Constitutional : No Weight loss, No Fever, No Chills, No Night Sweats, No Fatigue, No Malaise ENT/Mouth : No Hearing loss, No Ear Pain, No Nasal Congestion, No Sinus Pain, No Hoarseness, No sore throat, No Rhinorrhea, No Swallowing Difficulty Eyes: No Eye Pain, No Swelling, No Redness, No Foreign Body, No Discharge, No Vision Changes Cardiovascular : No Chest Pain, No SOB, No Dyspnea on Exertion, No Orthopnea, No Edema, No Palpitations Respiratory : No Cough, No Sputum, No Wheezing, No Smoke Exposure, No Dyspnea Gastrointestinal : No Nausea, No Vomiting, No Diarrhea, No Constipation, No abdominal Pain, No Hematochezia, No Melena Genitourinary : no irregular bleeding, No Dysuria, No Urinary Frequency, No Hematuria, No Urinary Incontinence, No Urgency, No Flank Pain, No Urinary Flow Changes, No Hesitancy Musculoskeletal : No joint pain, No Myalgias, No Joint Swelling Skin : No Skin Lesions, No rash Neuro : No Weakness, No Numbness, No Paresthesias, No Loss of Consciousness, No Dizziness, No Headache Psych : No Anxiety/Panic, No Depression, No SI/HI/AH/VH, No Social Issues, Heme/Lymph: No Bruising, No Bleeding,No Lymphadenopathy Endocrine : No Polyuria, No Polydipsia, No Temperature Intolerance [facility] Past Medical History Medical History (Updated 01/07/22 @ 23:42 by Nirmala Kc MD) Anxiety disorder, unspecified Intellectual disability Seizure disorder Surgical History (Updated 01/01/22 @ 07:46 by Roni Zimmerman MD) No pertinent past surgical history Family History Family History (Updated 01/01/22 @ 07:45 by Roni Zimmerman MD) Other No family history of coronary artery disease Social History Social History Alcohol intake: never Patient Tobacco Use Status: Never used Tobacco Advance Directives: No Advance Directives Information Provided: Yes Physical Exam Vital Signs: Vital Signs: Last Vital Signs Temp 99 F 01/07/22 22:06 Pulse 95 01/07/22 22:06 Resp 12 01/07/22 22:06 BP 171/105 H 01/07/22 22:06 Pulse Ox 97 01/07/22 22:06 O2 Del Method 01/07/22 22:06 BMI result Body Mass Index 20.9 Const: Other: Appearance: Alert. No acute distress. Eyes: Pupils equal, round and reactive to light. ENT: Pharynx normal. Neck: Normal inspection. Neck supple. No lymph nodes noted. No crepitus CVS: Normal heart rate and rhythm. Pulses normal. Normal S1 and S2 Respiratory: No respiratory distress. Breath sounds normal. No Wheezing. No rales Abdomen: Soft and nontender. No rigidity. No distention. Skin: Skin warm and dry. Normal skin color. Normal skin turgor. Extremities: No lower extremity edema. No Lacerations. No Rash Neuro: Oriented X 3. No motor deficit. No sensory deficit. Moving all extremities. No slurred speech. CN 2 through 12 grossly intact Psych: calm, cooperative, normal affect Course Course Course Narrative: Patient is alert, awake, does not seem postictal. All of his labs are pending. Patient states he did not take his medications today, patient was given his home dose of carbamazepine 400 mg and was also given 1000 mg Keppra which he takes twice a day On arrival to the emergency room, fire department ambulance came saying that the patient was seizing, patient received 1 mg of IV Ativan. By the time I saw the patient, patient was back to normal, patient was not postictal. Patient has chronic hyponatremia, in the 130s, today patient received 1 L of normal saline. Patient's white blood cell count and lactic acid are within normal limits. Again, patient not postictal. Patient was given his home dose of medication. P atient likely had a pseudo-seizure. Urinalysis negative MDM - Seizure Lab Data Result diagrams: 01/07/22 22:34 01/07/22 22:34 Labs: Lab Results 01/07/22 01/07/22 01/07/22 Range/Units 22:04 22:34 22:34 WBC 5.9 (4.8-10.8) X10*3/uL RBC 3.97 L (4.60-5.80) X10*6/uL Hgb 13.1 L (14.0-18.0) g/dl Hct 37.1 L (42.0-52.0) % MCV 93.5 (80.0-98.0) fL MCH 33.0 (27.0-33.0) pg MCHC 35.3 (31.0-36.0) g/dl RDW 12.2 (11.0-16.0) % Plt Count 202 (160-400) X10*3/uL MPV 9.4 (9.4-12.4) fL Immature Gran % (Auto) 0.5 H (0.0-0.4) % Neut % (Auto) 66.2 (45-73) % Lymph % (Auto) 22.6 (20-40) % [place] % (Auto) 10.1 (2-11) % Eos % (Auto) 0.3 (0-4) % Baso % (Auto) 0.3 (0-2) % Lymph # (Auto) 1.3 (1.2-4.9) X10*3/uL [place] # (Auto) 0.6 (0.1-1.2) X10*3/uL Eos # (Auto) 0.0 (0.0-0.4) X10*3/uL Baso # (Auto) 0.0 (0.0-0.2) X10*3/uL Abs Immat Gran (auto) 0.03 (0.00-0.03) X10*3/uL Absolute Neuts (auto) 3.9 (2.0-8.3) x10*3/uL Absolute Nucleated RBC 0.000 (0.0-0.012) X10*3/uL Nucleated RBC % (auto) 0.0 (0.0-0.2) /100WBC Sodium 131 L (135-145) mmol/L Potassium 4.2 (3.3-5.1) mmol/L Chloride 97 (96-108) mmol/L Carbon Dioxide 26 (22-29) mmol/L Anion Gap 12 (12-20) BUN 24 H D (9-16) mg/dL Creatinine 0.65 (0.5-1.4) mg/dL Estim Creat Clear Calc 131.8 Estimated GFR > 60 POC Glucose 108 (60-115) mg/dL Random Glucose 114 (60-115) mg/dL Lactic Acid (0.5-2.0) mmol/L Calcium 9.3 D (8.4-10.2) mg/dL Magnesium 1.7 (1.6-2.6) mg/dL Total Bilirubin 0.2 (0.0-1.0) mg/dL Direct Bilirubin < 0.2 (0.0-0.5) mg/dL AST 17 (5-37) U/L ALT 14 (0-40) U/L Alkaline Phosphatase 42 (39-117) U/L Total Protein 7.0 (6.5-8.0) g/dL Albumin 4.5 (3.5-5.0) g/dL Urine Color Urine Appearance Urine pH (5.0-8.0) Ur Specific [place] (1.005-1.025) Urine Protein (NEG-TRACE) MG/DL Urine Glucose (UA) (NEG) MG/DL Urine Ketones (NEG) MG/DL Urine Blood (NEG) Urine Nitrite (NEG) Ur Leukocyte Esterase (NEG) 01/07/22 01/07/22 Range/Units 22:34 22:38 WBC (4.8-10.8) X10*3/uL RBC (4.60-5.80) X10*6/uL Hgb (14.0-18.0) g/dl Hct (42.0-52.0) % MCV (80.0-98.0) fL MCH (27.0-33.0) pg MCHC (31.0-36.0) g/dl RDW (11.0-16.0) % Plt Count (160-400) X10*3/uL MPV (9.4-12.4) fL Immature Gran % (Auto) (0.0-0.4) % Neut % (Auto) (45-73) % Lymph % (Auto) (20-40) % [place] % (Auto) (2-11) % Eos % (Auto) (0-4) % Baso % (Auto) (0-2) % Lymph # (Auto) (1.2-4.9) X10*3/uL [place] # (Auto) (0.1-1.2) X10*3/uL Eos # (Auto) (0.0-0.4) X10*3/uL Baso # (Auto) (0.0-0.2) X10*3/uL Abs Immat Gran (auto) (0.00-0.03) X10*3/uL Absolute Neuts (auto) (2.0-8.3) x10*3/uL Absolute Nucleated RBC (0.0-0.012) X10*3/uL Nucleated RBC % (auto) (0.0-0.2) /100WBC Sodium (135-145) mmol/L Potassium (3.3-5.1) mmol/L Chloride (96-108) mmol/L Carbon Dioxide (22-29) mmol/L Anion Gap (12-20) BUN (9-16) mg/dL Creatinine (0.5-1.4) mg/dL Estim Creat Clear Calc Estimated GFR POC Glucose (60-115) mg/dL Random Glucose (60-115) mg/dL Lactic Acid 1.3 (0.5-2.0) mmol/L Calcium (8.4-10.2) mg/dL Magnesium (1.6-2.6) mg/dL Total Bilirubin (0.0-1.0) mg/dL Direct Bilirubin (0.0-0.5) mg/dL AST (5-37) U/L ALT (0-40) U/L Alkaline Phosphatase (39-117) U/L Total Protein (6.5-8.0) g/dL Albumin (3.5-5.0) g/dL Urine Color YELLOW Urine Appearance CLEAR Urine pH 8.0 (5.0-8.0) Ur Specific [place] 1.010 (1.005-1.025) Urine Protein NEG (NEG-TRACE) MG/DL Urine Glucose (UA) NEG (NEG) MG/DL Urine Ketones NEG (NEG) MG/DL Urine Blood NEG (NEG) Urine Nitrite NEG (NEG) Ur Leukocyte Esterase NEG (NEG) Discharge Plan Discharge Clinical Impression: Pseudoseizures Patient Disposition: Home, Self-Care Instructions: Recurrent Seizures in Adults (ED) Additional Instructions: Please follow-up with your primary care physician tomorrow. If you have any worsening or new symptoms, please return to the emergency room or call 911 Prescriptions: No [facility] multivitamin Tablet 1 tab PO DAILY clonidine HCl 0.1 mg tablet 1 tab PO DAILY PRN (Reason: AGITATION,AGGRESSIVENESS) cetirizine [Zyrtec] 10 mg Tablet 10 mg PO DAILY PRN (Reason: post nasal drip) clonazepam 0.5 mg tablet 0.5 mg PO BID clonazepam 0.5 mg tablet 1 mg PO DAILY divalproex 500 mg tablet,delayed release (DR/EC) 2 tab PO BID carbamazepine 400 mg tablet extended release 12 hr 1 tab PO BID lorazepam 2 mg tablet 1 tab PO TID PRN (Reason: Seizures) calcium carbonate [Juan-Gest Antacid] 200 mg calcium (500 mg) Tablet,Chewable 1,000 mg PO DAILY docusate sodium [Colace] 100 mg Capsule 100 mg PO BID risperidone 0.5 mg tablet 1 tab PO BID levetiracetam 1,000 mg tablet 1 tab PO BID diclofenac sodium 1 % Gel 1 g TOPICAL TID PRN (Reason: Pain (Scale Score 4-6)) cholecalciferol (vitamin D3) [Vitamin D3] 50 mcg (2,000 unit) Tablet 100 mcg PO DAILY omega 7-uxk-zlh-fish oil [Fish Oil] 1,000 mg (120 mg-180 mg) Capsule 1 cap PO DAILY urea 15 gram Powder In Packet 1 packet PO BID
--- NOTE | 2022-01-07 22:20 | ECG_ITS ---
Test Reason : SEIZURE Blood Pressure : / mmHG Vent. Rate : 087 BPM Atrial Rate : 087 BPM P-R Int : 128 ms QRS Dur : 082 ms QT Int : 318 ms P-R-T Axes : 030 055 048 degrees QTc Int : 382 ms Normal sinus rhythm Normal ECG When compared with ECG of 31-DEC-2021 16:16, No significant change was found Referred By: Nirmala Kc Electronically Signed By:Catrachito Devi
[2022-01-07] MEDS: levETIRAcetam in NaCl (iso-os) 1,000 MG/100 ML PIGGYBACK 400 MG IV (22:26)
[2022-01-07] MEDS: 0.9 % Sodium Chloride 1,000 ML 999 ML IVCONT (22:27)
[2022-01-07 22:38] LABS: MANUAL DIFF FLAG NO
[2022-01-07 22:43] LABS: Basophils Percent Auto 0.3 % (0-2); Eosinophils Percent Auto 0.3 % (0-4); Hematocrit 37.1 % (42.0-52.0); Hemoglobin 13.1 g/dl (14.0-18.0); Imm Gran Abs Auto 0.03 X10*3/uL (0.00-0.03); Imm Gran Pct Auto 0.5 % (0.0-0.4); Lymphocytes Absolute Auto 1.3 X10*3/uL (1.2-4.9); Lymphocytes Percent Auto 22.6 % (20-40); Mean Corpuscular HGB Conc 35.3 g/dl (31.0-36.0); Mean Corpuscular Volume 93.5 fL (80.0-98.0); Mean Platelet Volume 9.4 fL (9.4-12.4); Monocytes Absolute Auto 0.6 X10*3/uL (0.1-1.2); Monocytes Percent Auto 10.1 % (2-11); Neutrophils Absolute Auto 3.9 x10*3/uL (2.0-8.3); Neutrophils Percent Auto 66.2 % (45-73); Platelet Count 202 X10*3/uL (160-400); Red Blood Count 3.97 X10*6/uL (4.60-5.80); Red Cell Distribution Width 12.2 % (11.0-16.0); White Blood Count 5.9 X10*3/uL (4.8-10.8)
[2022-01-07 22:45] LABS: Appearance Urine CLEAR; Color Urine YELLOW; Glucose Urine UA NEG (NEG); Leukocyte Esterase Urine NEG (NEG); Nitrite Urine NEG (NEG); Urine Blood NEG (NEG); Urine Ketones NEG (NEG); Urine Protein NEG (NEG-TRACE)
[2022-01-07] MEDS: carBAMazepine 200 MG TABLET 400 MG PO (22:49)
[2022-01-07 22:55] LABS: Lactic Acid 1.3 mmol/L (0.5-2.0)
[2022-01-07 22:58] LABS: Alanine Aminotransferase 14 U/L (0-40); Albumin Level 4.5 g/dL (3.5-5.0); Alkaline Phosphatase 42 U/L (39-117); Anion Gap 12 (12-20); Aspartate Amino Transferase 17 U/L (5-37); Bilirubin Direct < 0.2 mg/dL (0.0-0.5); Bilirubin Total 0.2 mg/dL (0.0-1.0); Blood Urea Nitrogen 24 mg/dL (9-16); Calcium 9.3 mg/dL (8.4-10.2); Carbon Dioxide 26 mmol/L (22-29); Chloride 97 mmol/L (96-108); Creatinine Clr Calc Pharmacy 131.8; Estimated Glomerular Filt Rate > 60; Glucose Random 114 mg/dL (60-115); Magnesium 1.7 mg/dL (1.6-2.6); Potassium 4.2 mmol/L (3.3-5.1); Sodium 131 mmol/L (135-145)
--- NOTE | 2022-01-08 00:41 | PC.NURSE ---
This US called [facility] @00:36 for bls transfer back to residential. gave eta of half hour
[2022-01-08 01:06] LABS: Amphetamine Screen Urine Not Detected (Not Detect); Barbiturates, Urine Not Detected (Not Detect); Benzodiazepines Screen Urine Not Detected (Not Detect); Cannabinoid Screen Urine Not Detected (Not Detect); Cocaine Screen Urine Not Detected (Not Detect); Fentanyl, urine Not Detected (Not Detect); Opiate Screen Urine Not Detected (Not Detect); Phencyclidine Screen Urine Not Detected (Not Detect)
== END 2022-01-08 00:54 | disposition home or self-care (01) ==
PROVIDERS: Emergency Provider Emergency Medicine
DX: R56.9 Unspecified convulsions (principal); F79 Unspecified intellectual disabilities; F41.9 Anxiety disorder, unspecified; Z79.899 Other long term (current) drug therapy
CPT/HCPCS: 36415; 80048; 80076; 80307; 81003; 82947; 83605; 83735; 85025; 93005; 96361; 96374; 96375; 99283; 99284; J1953; J2060

== ENCOUNTER 2022-02-05 14:55 | Inpatient (IN) | payer MEDICARE, MEDICAID, SELFPAY ==
--- NOTE | ~2022-02-05 | CT_ITS ---
EXAMINATION: CT HEAD WITHOUT CONTRAST CLINICAL INFORMATION: Seizures COMPARISON: 12/31/2021 TECHNIQUE: Contiguous axial imaging was performed from the skull base to vertex without intravenous administration of contrast. This CT examination was performed using dose optimization techniques as appropriate, variously including the following: *Automated exposure control *Adjustment of mA and/or kV according to patient size (this includes techniques or standardized protocols for targeted exams where dose is matched to indication/reason for exam; i.e. extremities or head) *Use of iterative reconstruction technique DLP: 590 mGy-cm FINDINGS: No evidence of acute intracranial hemorrhage or extra-axial fluid collection. No acute territorial infarction. Supratentorial cortical atrophy is again appreciated, most predominantly involving the parieto-occipital lobes bilaterally, left greater than right. No evidence of mass lesion, mass effect or midline shift. The ventricles are symmetric in configuration and normal in size. The basal cisterns are patent. The calvarium is intact. Limited views of the paranasal sinuses are unremarkable. Mastoid air cells are well aerated and middle ear cavities are clear. CT/CT head/brain wo con IMPRESSION: No acute intracranial pathology.
[2022-02-05 15:10] VITALS: BP 127/87; PULSE 94; O2SAT 99
[2022-02-05 15:43] VITALS: BP 132/89; PULSE 82; TEMP 36.8; O2SAT 98; BMI 21.4
--- NOTE | 2022-02-05 15:44 | ED_ITS ---
HPI - General Adult General Chief complaint: Seizure Stated complaint: 3 SZ'S,HIT HEAD,FROM [facility] PER EMS Time Seen by Provider: 02/05/22 15:44 Source: patient and EMS Mode of arrival: EMS Limitations: no limitations History of Present Illness HPI narrative: Patient is a 46 year old male with a history of cognitive delay and seizure disorders, presenting to the emergency department today after multiple seizures. Staff with the patient states that the patient has a known seizure disorder but has been controlled well with Keppra, then 3-4 months ago he had breakthrough seizures. At that time, it was found that the patient was hyponatremic. Patient was admitted and his hyponatremia corrected. Upon discharge from that admission, the patient was started on a fluid restricted diet and Urea. The patient's neurologist decided recently to stop both the Urea and the fluid restricted diet. Patient denies any dizziness, lightheadedness, abdominal pain, nausea, vomiting, fever, chills, blurry vision, double vision, loss of vision, chest pain, difficulty breathing, shortness of breath, back pain, night sweats, pain with urination, increased urinary frequency, increased urinary urgency, blood in his urine or stool, syncope or a near syncopal episode, bowel incontinence, bladder incontinence, bowel retention, bladder retention, or any other complaints at this time. Onset (ago): hour(s) Severity: mild Severity scale (1-10): 2 Relieving factors: none Exacerbating factors: none Associated symptoms: denies other symptoms Treatments prior to arrival: none Related Data Home Medications Medication Instructions Recorded Confirmed calcium carbonate 200 mg calcium 1,000 mg PO DAILY 12/31/21 02/05/22 (500 mg) chewable tablet (Juan-Gest Antacid) carbamazepine 400 mg 1 tab PO BID 12/31/21 02/05/22 tablet,extended release,12 hr cetirizine 10 mg tablet (Zyrtec) 10 mg PO DAILY PRN post nasal drip 12/31/21 02/05/22 cholecalciferol (vitamin D3) 50 100 mcg PO DAILY 12/31/21 02/05/22 mcg (2,000 unit) tablet (Vitamin D3) clonazepam 0.5 mg tablet 0.5 mg PO BID@1600,2000 12/31/21 02/05/22 clonazepam 0.5 mg tablet 1 mg PO DAILY 12/31/21 02/05/22 clonidine HCl 0.1 mg tablet 1 tab PO DAILY PRN 12/31/21 02/05/22 AGITATION,AGGRESSIVENESS diclofenac sodium 1 % topical gel 1 g topical QID PRN Pain (Scale 12/31/21 02/05/22 Score 4-6) divalproex 500 mg tablet,delayed 2 tab PO BID 12/31/21 02/05/22 release docusate sodium 100 mg capsule 100 mg PO BID 12/31/21 02/05/22 (Colace) levetiracetam 1,000 mg tablet 1 tab PO BID 12/31/21 02/05/22 lorazepam 2 mg tablet 1 tab PO TID PRN Seizures 12/31/21 02/05/22 multivitamin 1 tab PO DAILY 12/31/21 02/05/22 omega 9-xam-hmi-fish oil 1,000 mg 1 cap PO DAILY 12/31/21 02/05/22 (120 mg-180 mg) capsule (Fish Oil) risperidone 0.5 mg tablet 1 tab PO BID 12/31/21 02/05/22 Allergies Allergy/AdvReac Type Severity Reaction Status Date / Time No Known Allergies Allergy Verified 12/31/21 15:26 [No Known Allergies*] Review of Systems Constitutional: Constitutional: Reports no additional constitutional complaints, Denies chills, Denies fever(s) and Denies night sweats Eyes: Eyes: Reports no additional eye complaints, Denies blurry vision, Denies change in vision, Denies diplopia, Denies eye discharge, Denies loss of vision and Denies eye pain ENT: Denies dizziness Cardiovascular: Cardiovascular: Reports no additional cardiovascular complaints, Denies chest pain, Denies lightheadedness, Denies Loss of Consciousness and Denies dyspnea Respiratory: Respiratory: Reports no additional respiratory complaints and Denies dyspnea Gastrointestinal: Gastrointestinal: Reports no additional gastrointestinal complaints, Denies abdominal pain, Denies melena, Denies hematochezia, Denies change in bowel habits and Denies change in stool character Genitourinary: Genitourinary: Reports no additional male genitourinary complaints, Denies hematuria, Denies oliguria, Denies difficulty urinating, Denies dysuria, Denies urinary frequency, Denies urinary hesitancy, Denies urinary incontinence and Denies urinary urgency Musculoskeletal: Musculoskeletal: Reports no additional musculoskeletal complaints, Denies numbness and Denies tingling Neurologic: Denies dizziness, Denies loss of vision, Denies numbness and Denies tingling Comments: patient has cognitive delay at baseline Psychiatric: Psychiatric: Reports no additional psychiatric complaints Endocrine: Endocrine: Reports no additional endocrine complaints Hematologic/Lymphatic: Hematologic/Lymphatic: Reports no additional hematologic/lymphatic complaints Allergic/Immunologic: Allergic/Immunologic: Reports no additional allergic/immunologic complaints [facility] Past Medical History Attestation statement: The following information was validated with the patient. Source: old records reviewed Medical History Anxiety disorder, unspecified Intellectual disability Seizure disorder Surgical History No pertinent past surgical history Family History Family History Other No family history of coronary artery disease Social History Social History Alcohol intake: never Patient Tobacco Use Status: Never used Tobacco Advance Directives: No Advance Directives Information Provided: Yes Advance Directives on File: No Physical Exam ED Vital Signs: Vital Signs - 24 hr 02/05/22 15:43 Temperature 98.3 F Pulse Rate 82 Blood Pressure 132/89 Pulse Oximetry 98 Oxygen Delivery Method Room Air BMI result Body Mass Index 21.4 Const General: cooperative, no acute distress, alert and awake Nutritional Appearance: well nourished Orientation/consciousness: patient oriented x3 Limitations: no limitations HENMT Head: Yes normal to inspection and Yes atraumatic Ears: hearing grossly normal bilaterally and external ears normal General nose exam: Normal external nose present, no nasal discharge noted and no epistaxis Face and sinus: Yes normal facial exam, No abrasion and No laceration Mouth: Normal oral and palatal mucosa present, no drooling and no muffled voice Eyes General: appearance normal, both eyes and all related structures Periorbital: periorbital findings normal Eyelids: Yes eyelids normal Conjunctivae: conjunctivae normal Pupils: Equal, round and reactive pupils present EOM: EOMs intact bilaterally Neck Neck: Yes normal visual inspection, Yes full ROM and Yes no lymphadenopathy Chest Chest palpation & inspection: normal inspection of the chest Resp Effort & Inspection: normal respiratory effort and able to speak in complete sentences Auscultation: clear to auscultation bilaterally Cardio Rate: regular rate Rhythm: regular rhythm GI Inspection: Yes normal to inspection Neuro Other: cognitive delay at baseline General: patient oriented x3 and moves all extremities Cranial nerves: Yes Equal, round and reactive pupils present Cognition (Neuro): normal cognition Motor exam (neuro): 5/5 motor strength present throughout Sensory Exam: Normal double simultaneous stimulation for sensation Coordination: [id number] test normal Extrem General: Yes normal to inspection, Yes full ROM and Yes capillary refill normal Psych Appearance: grossly normal Mental Status: mental status grossly normal Affect: normal affect Attitude: cooperative Thought process: Normal thought process present Thought content: Normal thought content present Insight: Good insight present (Psych) Medical Decision Making MDM Narrative Medical decision making narrative: Patient is a 46 year old male presenting to the emergency department today with break through seizures. Patient's physical exam was unremarkable. Patient's blood work showed a marked hyponatremia of 122. Patient's EKG was unremarkable. Patient's head CT is pending. I explained my physical exam findings as well as all test results to the patient and the patient's staff at bedside. I answered all questions asked by the patient and the patient's staff at bedside. I called and spoke to Dr. Sandoval, who agreed to hospital admission. Patient and his staff at bedside verbalized agreement and understanding with this treatment plan and admission. Differential Diagnosis Differential Diagnosis: Hyponatremia Medical Records Medical records reviewed: Yes I reviewed the patient's medical records. Lab Data Lab results reviewed: Yes I reviewed the patient's lab results. Result diagrams: 02/05/22 16:01 02/05/22 16:01 Labs: Lab Results 02/05/22 02/05/22 02/05/22 Range/Units 16:01 16:01 16:01 WBC 4.7 L (4.8-10.8) X10*3/uL RBC 3.78 L (4.60-5.80) X10*6/uL Hgb 12.5 L (14.0-18.0) g/dl Hct 33.8 L (42.0-52.0) % MCV 89.4 (80.0-98.0) fL MCH 33.1 H (27.0-33.0) pg MCHC 37.0 H (31.0-36.0) g/dl RDW 12.1 (11.0-16.0) % Plt Count 221 (160-400) X10*3/uL MPV 9.8 (9.4-12.4) fL Immature Gran % (Auto) 0.8 H (0.0-0.4) % Neut % (Auto) 69.3 (45-73) % Lymph % (Auto) 17.5 L (20-40) % [place] % (Auto) 11.8 H (2-11) % Eos % (Auto) 0.2 (0-4) % Baso % (Auto) 0.4 (0-2) % Lymph # (Auto) 0.8 L (1.2-4.9) X10*3/uL [place] # (Auto) 0.6 (0.1-1.2) X10*3/uL Eos # (Auto) 0.0 (0.0-0.4) X10*3/uL Baso # (Auto) 0.0 (0.0-0.2) X10*3/uL Abs Immat Gran (auto) 0.04 H (0.00-0.03) X10*3/uL Absolute Neuts (auto) 3.3 (2.0-8.3) x10*3/uL Absolute Nucleated RBC 0.000 (0.0-0.012) X10*3/uL Nucleated RBC % (auto) 0.0 (0.0-0.2) /100WBC Sodium 122 L (135-145) mmol/L Potassium 4.3 (3.3-5.1) mmol/L Chloride 91 L (96-108) mmol/L Carbon Dioxide 21 L (22-29) mmol/L Anion Gap 14 (12-20) BUN 8 L D (9-16) mg/dL Creatinine 0.60 (0.5-1.4) mg/dL Estim Creat Clear Calc 125.9 Estimated GFR > 60 Random Glucose 105 (60-115) mg/dL Lactic Acid (0.5-2.0) mmol/L Calcium 8.8 (8.4-10.2) mg/dL Magnesium 1.7 (1.6-2.6) mg/dL Total Bilirubin 0.4 (0.0-1.0) mg/dL AST 20 (5-37) U/L ALT 15 (0-40) U/L Alkaline Phosphatase 38 L (39-117) U/L Total Protein 6.6 (6.5-8.0) g/dL Albumin 4.3 (3.5-5.0) g/dL COVID-19 (JANICE) Negative (Negative) COVID-19 Clin Com See Note 02/05/22 Range/Units 16:01 WBC (4.8-10.8) X10*3/uL RBC (4.60-5.80) X10*6/uL Hgb (14.0-18.0) g/dl Hct (42.0-52.0) % MCV (80.0-98.0) fL MCH (27.0-33.0) pg MCHC (31.0-36.0) g/dl RDW (11.0-16.0) % Plt Count (160-400) X10*3/uL MPV (9.4-12.4) fL Immature Gran % (Auto) (0.0-0.4) % Neut % (Auto) (45-73) % Lymph % (Auto) (20-40) % [place] % (Auto) (2-11) % Eos % (Auto) (0-4) % Baso % (Auto) (0-2) % Lymph # (Auto) (1.2-4.9) X10*3/uL [place] # (Auto) (0.1-1.2) X10*3/uL Eos # (Auto) (0.0-0.4) X10*3/uL Baso # (Auto) (0.0-0.2) X10*3/uL Abs Immat Gran (auto) (0.00-0.03) X10*3/uL Absolute Neuts (auto) (2.0-8.3) x10*3/uL Absolute Nucleated RBC (0.0-0.012) X10*3/uL Nucleated RBC % (auto) (0.0-0.2) /100WBC Sodium (135-145) mmol/L Potassium (3.3-5.1) mmol/L Chloride (96-108) mmol/L Carbon Dioxide (22-29) mmol/L Anion Gap (12-20) BUN (9-16) mg/dL Creatinine (0.5-1.4) mg/dL Estim Creat Clear Calc Estimated GFR Random Glucose (60-115) mg/dL Lactic Acid 1.2 (0.5-2.0) mmol/L Calcium (8.4-10.2) mg/dL Magnesium (1.6-2.6) mg/dL Total Bilirubin (0.0-1.0) mg/dL AST (5-37) U/L ALT (0-40) U/L Alkaline Phosphatase (39-117) U/L Total Protein (6.5-8.0) g/dL Albumin (3.5-5.0) g/dL COVID-19 (JANICE) (Negative) COVID-19 Clin Com ECG Data Attestation: I personally reviewed and interpreted this ECG as follows: Prior ECG tracings: available for review Interpretation: Vent. Rate: 079 BPM ? ? Atrial Rate: 079 BPM P-R Int: 132 ms? QRS Dur: 088 ms QT Int: 350 ms ? ? ? P-R-T Axes: 035 050 060 degrees QTc Intc: 401 ms ? Normal sinus rhythm Normal ECG When compared with ECG of 07-JAN-2022 22:26, No significant change was found DD/ 1602 Discharge Plan Discharge Clinical Impression: Hyponatremia, Seizure Patient Disposition: Admitted As Inpatient
--- NOTE | 2022-02-05 15:49 | ECG_ITS ---
Test Reason : SEIZURE Blood Pressure : / mmHG Vent. Rate : 079 BPM Atrial Rate : 079 BPM P-R Int : 132 ms QRS Dur : 088 ms QT Int : 350 ms P-R-T Axes : 035 050 060 degrees QTc Int : 401 ms Normal sinus rhythm Normal ECG When compared with ECG of 07-JAN-2022 22:26, No significant change was found Referred By: Candice Tena Electronically Signed By:LEMUEL RIOJAS MD
[2022-02-05 16:07] LABS: MANUAL DIFF FLAG NO
[2022-02-05 16:18] LABS: Lactic Acid 1.2 mmol/L (0.5-2.0)
[2022-02-05 16:23] LABS: Basophils Percent Auto 0.4 % (0-2); Eosinophils Percent Auto 0.2 % (0-4); Hematocrit 33.8 % (42.0-52.0); Hemoglobin 12.5 g/dl (14.0-18.0); Imm Gran Abs Auto 0.04 X10*3/uL (0.00-0.03); Imm Gran Pct Auto 0.8 % (0.0-0.4); Lymphocytes Absolute Auto 0.8 X10*3/uL (1.2-4.9); Lymphocytes Percent Auto 17.5 % (20-40); Mean Corpuscular Hemoglobin 33.1 pg (27.0-33.0); Mean Corpuscular Volume 89.4 fL (80.0-98.0); Mean Platelet Volume 9.8 fL (9.4-12.4); Monocytes Absolute Auto 0.6 X10*3/uL (0.1-1.2); Monocytes Percent Auto 11.8 % (2-11); Neutrophils Absolute Auto 3.3 x10*3/uL (2.0-8.3); Neutrophils Percent Auto 69.3 % (45-73); Platelet Count 221 X10*3/uL (160-400); Red Blood Count 3.78 X10*6/uL (4.60-5.80); Red Cell Distribution Width 12.1 % (11.0-16.0); White Blood Count 4.7 X10*3/uL (4.8-10.8)
[2022-02-05 16:24] LABS: COVID-19 Test Negative (Negative)
[2022-02-05 16:29] LABS: Alanine Aminotransferase 15 U/L (0-40); Albumin Level 4.3 g/dL (3.5-5.0); Alkaline Phosphatase 38 U/L (39-117); Anion Gap 14 (12-20); Aspartate Amino Transferase 20 U/L (5-37); Bilirubin Total 0.4 mg/dL (0.0-1.0); Blood Urea Nitrogen 8 mg/dL (9-16); Calcium 8.8 mg/dL (8.4-10.2); Carbon Dioxide 21 mmol/L (22-29); Chloride 91 mmol/L (96-108); Creatinine Clr Calc Pharmacy 125.9; Estimated Glomerular Filt Rate > 60; Glucose Random 105 mg/dL (60-115); Magnesium 1.7 mg/dL (1.6-2.6); Potassium 4.3 mmol/L (3.3-5.1); Sodium 122 mmol/L (135-145); Total Protein 6.6 g/dL (6.5-8.0)
--- NOTE | 2022-02-05 16:59 | PHA.MEDREC ---
Pharmacy Consult ? Medication Reconciliation Pharmacy has completed the medication reconciliation.
--- NOTE | 2022-02-05 17:02 | PM.IMHP ---
History of Present Illness Date of Service: 02/05/22 Chief Complaint: seizure history obtained from [facility] staff 46M with pmh of intellectual delay, epilepsy, SIADH, from [facility], presented with seizure and head injury. per staff patient has frequent seizures, up to 5 times per day, though can also go several days without one. on day of presentation patient had seizure and hit head so was brought to ED. after post ictal period patient denies head pain, appears to be back to baseline. in ED labs significant for sodium of 122. apparently, had been on urea and fluid restriction in past and was recently discontinued. Review of Systems Review of Systems: Constitutional: Denies fever, denies Chills Eyes: denies blurry vision ENT: denies sore throat CVS: denies chest pain Respiratory: Denies dyspnea GI: no abdominal pain : denies dysuria MSK: denies neck pain Skin: denies rash Neuro: denies specific motor weakness Psych: denies suicidal ideation Endocrine: denies heat/cold intolerance Hematologic: denies easy bleeding Allergy: denies hives [facility] Medical History Anxiety disorder, unspecified Intellectual disability Seizure disorder Family History Other No family history of coronary artery disease Surgical History No pertinent past surgical history Social History Alcohol intake: never Patient Tobacco Use Status: Never used Tobacco Advance Directives: No Advance Directives Information Provided: Yes Advance Directives on File: No Meds Allergies Allergy/AdvReac Type Severity Reaction Status Date / Time No Known Allergies Allergy Verified 12/31/21 15:26 [No Known Allergies*] Active Medications: Current Medications Acetaminophen (Acetaminophen 325 Mg Tablet) 650 mg PO Q6H PRN PRN Reason: Pain, Mild (Pain Scale 1-3) Enoxaparin Sodium (Enoxaparin Sodium 40 Mg/0.4 Ml Syringe) 40 mg SUBCUT Q24H AUBREY Sodium Chloride (Ns) 1,000 mls @ 200 mls/hr IV .Q5H AUBREY Stop: 02/05/22 21:44 Pharmacy Consult (Consult Rx Perform Med Rec) 1 each MISCELLANE ONCE PRN PRN Reason: Consult order Sodium Chloride (0.9 % Sodium Chloride Flush 3 Ml Syringe) 3 ml IVFLUSH QSMAFT [facility] Home Medications Medication Instructions Recorded Confirmed Last Taken Type calcium carbonate 200 mg calcium 1,000 mg PO DAILY 12/31/21 02/05/22 02/05/22 History (500 mg) chewable tablet (Juan-Gest Antacid) carbamazepine 400 mg 1 tab PO BID 12/31/21 02/05/22 02/05/22 History tablet,extended release,12 hr cetirizine 10 mg tablet (Zyrtec) 10 mg PO DAILY PRN post nasal drip 12/31/21 02/05/22 02/05/22 History cholecalciferol (vitamin D3) 50 100 mcg PO DAILY 12/31/21 02/05/22 02/05/22 History mcg (2,000 unit) tablet (Vitamin D3) clonazepam 0.5 mg tablet 0.5 mg PO BID@1600,2000 12/31/21 02/05/22 02/05/22 History clonazepam 0.5 mg tablet 1 mg PO DAILY 12/31/21 02/05/22 02/05/22 History clonidine HCl 0.1 mg tablet 1 tab PO DAILY PRN 12/31/21 02/05/22 02/05/22 History AGITATION,AGGRESSIVENESS diclofenac sodium 1 % topical gel 1 g topical QID PRN Pain (Scale 12/31/21 02/05/22 02/05/22 History Score 4-6) divalproex 500 mg tablet,delayed 2 tab PO BID 12/31/21 02/05/22 02/05/22 History release docusate sodium 100 mg capsule 100 mg PO BID 12/31/21 02/05/22 02/05/22 History (Colace) levetiracetam 1,000 mg tablet 1 tab PO BID 12/31/21 02/05/22 02/05/22 History lorazepam 2 mg tablet 1 tab PO TID PRN Seizures 12/31/21 02/05/22 02/05/22 History multivitamin 1 tab PO DAILY 12/31/21 02/05/22 02/05/22 History omega 9-rgi-ijq-fish oil 1,000 mg 1 cap PO DAILY 12/31/21 02/05/22 02/05/22 History (120 mg-180 mg) capsule (Fish Oil) risperidone 0.5 mg tablet 1 tab PO BID 12/31/21 02/05/22 02/05/22 History Physical Exam Vital Signs and Narrative: Vital Signs: Last Vital Signs Temp 98.3 F 02/05/22 15:43 Pulse 82 02/05/22 15:43 BP 132/89 02/05/22 15:43 Pulse Ox 98 02/05/22 15:43 O2 Del Method 02/05/22 15:43 BMI result Body Mass Index 21.4 General: no acute distress HEENT: small, superficial laceration over right eye Neck: normal to visual inspection CVS: S1, S2, RRR Resp: CTA bilateral Chest: non tender GI: soft, non tender, non distended : no CVA tenderness Skin: no rashes Extremities: no edema Neuro: Oriented X3, grossly intact Psych: cooperative, poor insight Results Labs CBC and Chem 7: 02/05/22 16:01 02/05/22 16:01 Labs: Laboratory Results - last 24 hr 02/05/22 02/05/22 02/05/22 16:01 16:01 16:01 MCV 89.4 MCH 33.1 H MCHC 37.0 H RDW 12.1 Plt Count 221 MPV 9.8 Immature Gran % (Auto) 0.8 H Neut % (Auto) 69.3 Lymph % (Auto) 17.5 L [place] % (Auto) 11.8 H Eos % (Auto) 0.2 Baso % (Auto) 0.4 Lymph # (Auto) 0.8 L [place] # (Auto) 0.6 Eos # (Auto) 0.0 Baso # (Auto) 0.0 Abs Immat Gran (auto) 0.04 H Absolute Neuts (auto) 3.3 Absolute Nucleated RBC 0.000 Nucleated RBC % (auto) 0.0 Anion Gap 14 Estim Creat Clear Calc 125.9 Estimated GFR > 60 Random Glucose 105 Lactic Acid Calcium 8.8 Magnesium 1.7 Total Bilirubin 0.4 AST 20 ALT 15 Alkaline Phosphatase 38 L Total Protein 6.6 Albumin 4.3 COVID-19 (JANICE) Negative COVID-19 Clin Com See Note 02/05/22 16:01 MCV MCH MCHC RDW Plt Count MPV Immature Gran % (Auto) Neut % (Auto) Lymph % (Auto) [place] % (Auto) Eos % (Auto) Baso % (Auto) Lymph # (Auto) [place] # (Auto) Eos # (Auto) Baso # (Auto) Abs Immat Gran (auto) Absolute Neuts (auto) Absolute Nucleated RBC Nucleated RBC % (auto) Anion Gap Estim Creat Clear Calc Estimated GFR Random Glucose Lactic Acid 1.2 Calcium Magnesium Total Bilirubin AST ALT Alkaline Phosphatase Total Protein Albumin COVID-19 (JANICE) COVID-19 Clin Com Assessment and Plan (1) Hyponatremia: Status: Acute Plan 46M presented with seizure, hit head, found to have hyponatremia hyponatremia suspect SIADH fluid restrict, urea monitor sodium nephro eval seizures seizure precauteds continue home AEDs: keppra, depakote, tegretol intellectual delay with behaviour abnormalities continue risperdal, benzos dvt prophylaxis - lovenox full code patient with significant hyponatremia 122, requires close montiroing and slow correction to avoid overcorrection/pontine myolysis, therefore, expected to require atleast 2 midnights in hospital Quality Stroke Does the patient have a stroke diagnosis?: No VTE Prior VTE?: No VTE Risk Level:: Medical - moderate - high VTE Device Contraindication: Treatment Not Indicated VTE Drug Contraindication: N/A - Med Ordered
[2022-02-05] MEDS: 0.9 % Sodium Chloride 1,000 ML 200 ML IV (17:50)
[2022-02-05] MEDS: Enoxaparin Sodium 40 MG/0.4 ML SYRINGE SUBCUT (18:52)
--- NOTE | 2022-02-05 19:51 | MHC.CM.PN ---
Addendum entered by Page Baker 02/05/22 20:07: IMM 02/05. Reviewed and signed with guardian/father Allen Anaya. Original Note: CM met with admitted patient with bed assignment pending. [facility] from a [facility]. Staff with patient. Aolnzo, aviation program manager ([phone]), Allen Bustos, nurse at [facility] ([phone]). Guardian/Father Allen Anaya ([phone]). Spoke with father on the telephone. Will review and sign IMM when father comes into ED tonight. Pt has hx seizure disorder, ID and anxiety disorder. Covid vax/boosted x3. PCP [facility]. Pt states he walks okay, without assistance and is independent in the fdc. Has no dietary restrictions, but drinks ensure TID. Pt has no services at this time and no DME. Psychiatrist Dr. Evin Baeza. D/C plan: return to [facility]. Transportation via [facility]/family. CM to follow for d/c planning.
[2022-02-05] MEDS: carBAMazepine ER 200 MG TAB.ER.12H 400 MG PO (20:10)
[2022-02-05] MEDS: clonazePAM 0.5 MG TABLET PO (20:10)
[2022-02-05] MEDS: risperiDONE 0.5 MG TABLET PO (20:10)
[2022-02-05] MEDS: Docusate Sodium 100 MG CAPSULE PO (20:10)
[2022-02-05] MEDS: levETIRAcetam 1,000 MG TABLET 1000 MG PO (20:11)
[2022-02-05] MEDS: Divalproex Sodium 500 MG TABLET.DR 1000 MG PO (20:11)
[2022-02-05 20:18] VITALS: BP 143/85; PULSE 84; RESP 18; O2SAT 99
--- NOTE | 2022-02-05 20:21 | PC.NURSE ---
bed time meds given. pt resting comfortably on stretcher. father at bedside. pt reports no pain or discomfort. vital signs updated, call baltazar within reach
[2022-02-05 23:06] VITALS: BP 161/93; PULSE 75; RESP 18; TEMP 36.8; O2SAT 100
[2022-02-05 23:19] LABS: Appearance Urine CLEAR; Color Urine STRAW; Glucose Urine UA NEG (NEG); Leukocyte Esterase Urine NEG (NEG); Nitrite Urine NEG (NEG); PH 6.5 (5.0-8.0); Specific Gravity - Urine <= 1.005 (1.005-1.025); Urine Blood NEG (NEG); Urine Ketones NEG (NEG); Urine Protein NEG (NEG-TRACE)
--- NOTE | 2022-02-06 04:40 | PC.NURSE ---
pt sleeping comfortably on stretcher, no apparent distress. call baltazar within reach.
[2022-02-06 06:13] LABS: Hematocrit 37.1 % (42.0-52.0); Hemoglobin 13.2 g/dl (14.0-18.0); Mean Corpuscular HGB Conc 35.6 g/dl (31.0-36.0); Mean Corpuscular Hemoglobin 32.4 pg (27.0-33.0); Mean Corpuscular Volume 91.2 fL (80.0-98.0); Mean Platelet Volume 9.4 fL (9.4-12.4); Platelet Count 233 X10*3/uL (160-400); Red Blood Count 4.07 X10*6/uL (4.60-5.80); Red Cell Distribution Width 12.5 % (11.0-16.0); White Blood Count 5.6 X10*3/uL (4.8-10.8)
[2022-02-06 06:42] LABS: Anion Gap 12 (12-20); Blood Urea Nitrogen 7 mg/dL (9-16); Calcium 8.4 mg/dL (8.4-10.2); Carbon Dioxide 23 mmol/L (22-29); Chloride 98 mmol/L (96-108); Creatinine Clr Calc Pharmacy 130.3; Estimated Glomerular Filt Rate > 60; Glucose Fasting 89 mg/dL (60-99); Potassium 4.2 mmol/L (3.3-5.1); Sodium 129 mmol/L (135-145)
[2022-02-06 07:44] VITALS: BP 132/79; PULSE 75; RESP 20; TEMP 37; O2SAT 99
[2022-02-06] MEDS: Docusate Sodium 100 MG CAPSULE PO ×2 (07:47→20:10)
[2022-02-06] MEDS: Multivitamin TABLET 1 TAB PO (07:48)
[2022-02-06] MEDS: Calcium Carbonate 750 MG TAB.CHEW PO (07:48)
[2022-02-06] MEDS: Cholecalciferol (Vitamin D3) 25 MCG TABLET 100 MCG PO (07:48)
[2022-02-06] MEDS: Divalproex Sodium 500 MG TABLET.DR 1000 MG PO ×2 (07:48→20:10)
[2022-02-06] MEDS: carBAMazepine ER 200 MG TAB.ER.12H 400 MG PO ×2 (07:48→20:10)
[2022-02-06] MEDS: Acetaminophen 325 MG TABLET 650 MG PO (07:48)
[2022-02-06] MEDS: levETIRAcetam 1,000 MG TABLET 1000 MG PO ×2 (07:49→20:10)
[2022-02-06] MEDS: clonazePAM 1 MG TABLET PO (07:49)
[2022-02-06] MEDS: 0.9 % Sodium Chloride Flush 3 ML SYRINGE IVFLUSH ×2 (07:49→20:10)
[2022-02-06] MEDS: risperiDONE 0.5 MG TABLET PO ×2 (07:49→20:10)
--- NOTE | 2022-02-06 11:34 | P.PNIM_ITS ---
Subjective Subjective Date of Service: 02/06/22 Interval History: cc: sezure, hyponatremia interval history: no complaints Cardiovascular Cardiovascular: Reports no additional cardiovascular complaints Respiratory Respiratory: Reports no additional respiratory complaints Physical Exam Vital Signs: Vital Signs: Last Vital Signs Temp 98.6 F 02/06/22 07:44 Pulse 75 02/06/22 07:44 Resp 20 02/06/22 07:44 BP 132/79 02/06/22 07:44 Pulse Ox 99 02/06/22 07:44 O2 Del Method 02/06/22 07:44 BMI result Body Mass Index 21.4 General: AO X 3, no acute distress Resp: CTA bilateral, no accessory muscles used CVS: S1,S2,RRR GI: soft, non tender, non distended Neuro: motor grossly intact, alert Psych: appropriate affect, impaired insight Objective Data Active Medications Acetaminophen (Acetaminophen 325 Mg Tablet) 650 mg PO Q6H PRN PRN Reason: Pain, Mild (Pain Scale 1-3) Last Admin: 02/06/22 07:48 Dose: 650 mg Documented By: TRAN Calcium Carbonate (Calcium Carbonate 750 Mg Tab.Chew) 750 mg PO DAILY [facility] Last Admin: 02/06/22 07:48 Dose: 750 mg Documented By: TRAN Carbamazepine (Carbamazepine Er 200 Mg Tab.Er.12h) 400 mg PO BID [facility] Last Admin: 02/06/22 07:48 Dose: 400 mg Documented By: TRAN Clonazepam (Clonazepam 0.5 Mg Tablet) 0.5 mg PO BID@1600,2000 [facility] Last Admin: 02/05/22 20:10 Dose: 0.5 mg Documented By: ADAMA Clonazepam (Clonazepam 1 Mg Tablet) 1 mg PO DAILY [facility] Last Admin: 02/06/22 07:49 Dose: 1 mg Documented By: TRAN Clonidine HCl (Clonidine Hcl 0.1 Mg Tablet) 0.1 mg PO DAILY PRN; Protocol PRN Reason: AGITATION,AGGRESSIVENESS Divalproex Sodium (Divalproex Sodium 500 Mg Tablet.Dr) 1,000 mg PO BID [facility] Last Admin: 02/06/22 07:48 Dose: 1,000 mg Documented By: TRAN Docusate Sodium (Docusate Sodium 100 Mg Capsule) 100 mg PO BID [facility] Last Admin: 02/06/22 07:47 Dose: 100 mg Documented By: TRAN Enoxaparin Sodium (Enoxaparin Sodium 40 Mg/0.4 Ml Syringe) 40 mg SUBCUT Q24H [facility] Last Admin: 02/05/22 18:52 Dose: 40 mg Documented By: NICKO Levetiracetam (Levetiracetam 1,000 Mg Tablet) 1,000 mg PO BID [facility] Last Admin: 02/06/22 07:49 Dose: 1,000 mg Documented By: TRAN Loratadine (Loratadine 10 Mg Tablet) 10 mg PO DAILY PRN PRN Reason: post nasal drip Lorazepam (Lorazepam 1 Mg Tablet) 2 mg PO TID PRN PRN Reason: Seizures Multivitamins/Vitamin C (Multivitamin Tablet) 1 tab PO DAILY [facility] Last Admin: 02/06/22 07:48 Dose: 1 tab Documented By: TRAN Pharmacy Consult (Consult Rx Perform Med Rec) 1 each MISCELLANE ONCE PRN PRN Reason: Consult order Risperidone (Risperidone 0.5 Mg Tablet) 0.5 mg PO BID [facility] Last Admin: 02/06/22 07:49 Dose: 0.5 mg Documented By: TRAN Sodium Chloride (0.9 % Sodium Chloride Flush 3 Ml Syringe) 3 ml IVFLUSH QSHIFT [facility] Last Admin: 02/06/22 07:49 Dose: 3 ml Documented By: TRAN Vitamin D (Cholecalciferol (Vitamin D3) 25 Mcg Tablet) 100 mcg PO DAILY [facility] Last Admin: 02/06/22 07:48 Dose: 100 mcg Documented By: TRAN Labs CBC & Chem 7: 02/06/22 05:50 02/06/22 05:50 Labs: Laboratory Results - last 24 hr 02/05/22 02/05/22 02/05/22 16:01 16:01 16:01 MCV 89.4 MCH 33.1 H MCHC 37.0 H RDW 12.1 Plt Count 221 MPV 9.8 Immature Gran % (Auto) 0.8 H Neut % (Auto) 69.3 Lymph % (Auto) 17.5 L [place] % (Auto) 11.8 H Eos % (Auto) 0.2 Baso % (Auto) 0.4 Lymph # (Auto) 0.8 L [place] # (Auto) 0.6 Eos # (Auto) 0.0 Baso # (Auto) 0.0 Abs Immat Gran (auto) 0.04 H Absolute Neuts (auto) 3.3 Absolute Nucleated RBC 0.000 Nucleated RBC % (auto) 0.0 Anion Gap 14 Estim Creat Clear Calc 125.9 Estimated GFR > 60 Random Glucose 105 Fasting Glucose Lactic Acid Calcium 8.8 Magnesium 1.7 Total Bilirubin 0.4 AST 20 ALT 15 Alkaline Phosphatase 38 L Total Protein 6.6 Albumin 4.3 Urine Color Urine Appearance Urine pH Ur Specific [place] Urine Protein Urine Glucose (UA) Urine Ketones Urine Blood Urine Nitrite Ur Leukocyte Esterase COVID-19 (JANICE) Negative COVID-19 Clin Com See Note 02/05/22 02/05/22 02/06/22 16:01 23:10 05:50 MCV 91.2 MCH 32.4 MCHC 35.6 RDW 12.5 Plt Count 233 MPV 9.4 Immature Gran % (Auto) Neut % (Auto) Lymph % (Auto) [place] % (Auto) Eos % (Auto) Baso % (Auto) Lymph # (Auto) [place] # (Auto) Eos # (Auto) Baso # (Auto) Abs Immat Gran (auto) Absolute Neuts (auto) Absolute Nucleated RBC 0.000 Nucleated RBC % (auto) 0.0 Anion Gap Estim Creat Clear Calc Estimated GFR Random Glucose Fasting Glucose Lactic Acid 1.2 Calcium Magnesium Total Bilirubin AST ALT Alkaline Phosphatase Total Protein Albumin Urine Color STRAW Urine Appearance CLEAR Urine pH 6.5 Ur Specific [place] <= 1.005 Urine Protein NEG Urine Glucose (UA) NEG Urine Ketones NEG Urine Blood NEG Urine Nitrite NEG Ur Leukocyte Esterase NEG COVID-19 (JANICE) COVID-19 Clin Com 02/06/22 05:50 MCV MCH MCHC RDW Plt Count MPV Immature Gran % (Auto) Neut % (Auto) Lymph % (Auto) [place] % (Auto) Eos % (Auto) Baso % (Auto) Lymph # (Auto) [place] # (Auto) Eos # (Auto) Baso # (Auto) Abs Immat Gran (auto) Absolute Neuts (auto) Absolute Nucleated RBC Nucleated RBC % (auto) Anion Gap 12 Estim Creat Clear Calc 130.3 Estimated GFR > 60 Random Glucose Fasting Glucose 89 Lactic Acid Calcium 8.4 Magnesium Total Bilirubin AST ALT Alkaline Phosphatase Total Protein Albumin Urine Color Urine Appearance Urine pH Ur Specific [place] Urine Protein Urine Glucose (UA) Urine Ketones Urine Blood Urine Nitrite Ur Leukocyte Esterase COVID-19 (JANICE) COVID-19 Clin Com Assessment and Plan (1) Seizure: Status: Acute (2) Hyponatremia: Status: Acute Plan 46M presented with seizure, hit head, found to have hyponatremia hyponatremia suspect SIADH improved at accepatable rate from 122 to 129, continue fluid restrict, urea (okay to be with juice instead of water) monitor sodium nephro eval seizures seizure precautions continue home AEDs: keppra, depakote, tegretol intellectual delay with behaviour abnormalities continue risperdal, benzos dvt prophylaxis - lovenox full code reason for continued hospitalization: continued monitoring of hyponatermia Quality Stroke Does the patient have a stroke diagnosis?: No VTE Prior VTE?: No VTE Risk Level:: Medical - moderate - high VTE Device Contraindication: Treatment Not Indicated VTE Drug Contraindication: N/A - Med Ordered
[2022-02-06] MEDS: Urea 15 GM POWDER PO (12:21)
[2022-02-06 17:25] VITALS: BP 124/76; PULSE 80; RESP 20; O2SAT 99
[2022-02-06] MEDS: clonazePAM 0.5 MG TABLET PO ×2 (17:26→20:10)
[2022-02-06] MEDS: Enoxaparin Sodium 40 MG/0.4 ML SYRINGE SUBCUT (18:39)
[2022-02-06 19:51] VITALS: BP 125/81; PULSE 93; RESP 17; TEMP 36.4; O2SAT 99
[2022-02-06 23:42] VITALS: BP 119/72; PULSE 88; RESP 16; TEMP 36.4; O2SAT 99
[2022-02-07 06:26] LABS: Hematocrit 40.9 % (42.0-52.0); Hemoglobin 14.2 g/dl (14.0-18.0); Mean Corpuscular HGB Conc 34.7 g/dl (31.0-36.0); Mean Corpuscular Hemoglobin 32.8 pg (27.0-33.0); Mean Corpuscular Volume 94.5 fL (80.0-98.0); Mean Platelet Volume 9.4 fL (9.4-12.4); Platelet Count 273 X10*3/uL (160-400); Red Blood Count 4.33 X10*6/uL (4.60-5.80); Red Cell Distribution Width 12.9 % (11.0-16.0); White Blood Count 6.6 X10*3/uL (4.8-10.8)
[2022-02-07 07:04] LABS: Anion Gap 13 (12-20); Blood Urea Nitrogen 16 mg/dL (9-16); Calcium 9.7 mg/dL (8.4-10.2); Carbon Dioxide 28 mmol/L (22-29); Chloride 100 mmol/L (96-108); Creatinine Clr Calc Pharmacy 107.9; Estimated Glomerular Filt Rate > 60; Glucose Fasting 89 mg/dL (60-99); Potassium 4.6 mmol/L (3.3-5.1); Sodium 136 mmol/L (135-145)
[2022-02-07 07:41] VITALS: BP 142/88; PULSE 73; RESP 18; TEMP 36.2; O2SAT 100
[2022-02-07] MEDS: Docusate Sodium 100 MG CAPSULE PO (08:48)
[2022-02-07] MEDS: clonazePAM 1 MG TABLET PO (08:48)
[2022-02-07] MEDS: carBAMazepine ER 200 MG TAB.ER.12H 400 MG PO (08:48)
[2022-02-07] MEDS: levETIRAcetam 1,000 MG TABLET 1000 MG PO (08:48)
[2022-02-07] MEDS: risperiDONE 0.5 MG TABLET PO (08:48)
[2022-02-07] MEDS: 0.9 % Sodium Chloride Flush 3 ML SYRINGE IVFLUSH (08:48)
[2022-02-07] MEDS: Cholecalciferol (Vitamin D3) 25 MCG TABLET 100 MCG PO (08:48)
[2022-02-07] MEDS: Multivitamin TABLET 1 TAB PO (08:48)
[2022-02-07] MEDS: Calcium Carbonate 750 MG TAB.CHEW PO (08:48)
[2022-02-07] MEDS: Divalproex Sodium 500 MG TABLET.DR 1000 MG PO (08:48)
--- NOTE | 2022-02-07 11:42 | P.DS_ITS ---
DS: Providers Provider Date of Service: 02/07/22 Date of admission: 02/05/22 16:59 Primary care physician: LOIS Constantino Consults: 02/05/22 16:59 Consult to Nephrology Routine Consulting Provider: Pepe Garcia Reason for consultation: hyponatremia DS: Diagnosis Discharge Diagnosis (1) Seizure: Status: Acute (2) Hyponatremia: Status: Acute DS: Summary Hospital Course Hospital Course: from initial hpi: Chief Complaint: seizure history obtained from half-way staff 46M with pmh of intellectual delay, epilepsy, SIADH, from half-way, presented with seizure and head injury. per staff patient has frequent seizures, up to 5 times per day, though can also go several days without one. on day of presentation patient had seizure and hit head so was brought to ED. after post ictal period patient denies head pain, appears to be back to baseline. in ED labs significant for sodium of 122. apparently, had been on urea and fluid restriction in past and was recently discontinued. hospital course: Patient was admitted for acute recurrent hyponatremia. He was put on a 1500 cc per day fluid restriction and given 15 g of urea. His sodium improved at an acceptable rate over 48 hours from 122 to 136. he was seen by nephrology who recommended 1L/day fluid restriction (not including ensure or v8). he had no further seizures while in the hospital. For his epilepsy he was continued on his antiepileptic medications of carbamazepine, Depakote, Keppra. For his intellectual delay with behavior abnormalities is continue on Risperdal, Ativan, clonidine, Klonopin. Patient is now medically stable for discharge. he will follow-up with Nephrology and Neurology. Time Spent with Patient Time attestation: Total time spent providing and/or coordinating discharge services: Discharge coordination time: Greater than 30 minutes Quality: Safe Use of Opioids Does Pt have an Active Cancer Diagnosis on the Problem List?: No Quality: Stroke Does the patient have a stroke diagnosis?: No Physical Exam Vital Signs: Vital Signs: Last Vital Signs Temp 97.2 F 02/07/22 07:41 Pulse 73 02/07/22 07:41 Resp 18 02/07/22 07:41 BP 142/88 H 02/07/22 07:41 Pulse Ox 100 02/07/22 07:41 O2 Del Method 02/07/22 07:41 BMI result Body Mass Index 21.4 General: AO X 3, no acute distress Resp: CTA bilateral, no accessory muscles used CVS: S1,S2,RRR GI: soft, non tender, non distended Neuro: motor grossly intact, alert Psych: appropriate affect, impaired insight DS: Data Data Completed and Pending Labs on day of discharge: Laboratory Results - last 24 hr 02/07/22 02/07/22 05:44 05:44 WBC 6.6 RBC 4.33 L Hgb 14.2 Hct 40.9 L MCV 94.5 MCH 32.8 MCHC 34.7 RDW 12.9 Plt Count 273 MPV 9.4 Absolute Nucleated RBC 0.000 Nucleated RBC % (auto) 0.0 Sodium 136 Potassium 4.6 Chloride 100 Carbon Dioxide 28 Anion Gap 13 BUN 16 D Creatinine 0.70 Estim Creat Clear Calc 107.9 Estimated GFR > 60 Fasting Glucose 89 Calcium 9.7 D Discharge Plan Discharge Patient Disposition: Home, Self-Care Discharge Diagnosis: seizure, hyponatremia Referrals: Cydney Estrella PA [Primary Care Provider] - 1 Week Discharge Medications: Continued multivitamin Tablet 1 tab PO DAILY clonidine HCl 0.1 mg tablet 1 tab PO DAILY PRN (Reason: AGITATION,AGGRESSIVENESS) cetirizine [Zyrtec] 10 mg Tablet 10 mg PO DAILY PRN (Reason: post nasal drip) clonazepam 0.5 mg tablet 0.5 mg PO BID@1600,2000 clonazepam 0.5 mg tablet 1 mg PO DAILY divalproex 500 mg tablet,delayed release (DR/EC) 2 tab PO BID carbamazepine 400 mg tablet extended release 12 hr 1 tab PO BID lorazepam 2 mg tablet 1 tab PO TID MDD 3 PRN (Reason: Seizures) calcium carbonate [Juan-Gest Antacid] 200 mg calcium (500 mg) Tablet,Chewable 1,000 mg PO DAILY docusate sodium [Colace] 100 mg Capsule 100 mg PO BID risperidone 0.5 mg tablet 1 tab PO BID levetiracetam 1,000 mg tablet 1 tab PO BID diclofenac sodium 1 % Gel 1 g TOPICAL QID PRN (Reason: Pain (Scale Score 4-6)) cholecalciferol (vitamin D3) [Vitamin D3] 50 mcg (2,000 unit) Tablet 100 mcg PO DAILY omega [id number]-fish oil [Fish Oil] 1,000 mg (120 mg-180 mg) Capsule 1 cap PO DAILY Discharge Orders: Discharge Order (Routine); Ordered 02/07/22 Ordered By: Roney Sandoval Diet: fluid restrict 1L/day Activity on Discharge: seizure precautions Stand Alone Forms: Patient Portal Discharge page Care Plan Goals: avoid seizures, manage hyponatremia Health Concerns: hyponatremia Plan of Treatment: fluid restrict 1 litre per day (does not include v8 or ensure), follow up nephrology and neurology, seizure precautions Assessment: see above
== END 2022-02-07 16:10 | disposition home or self-care (01) | DRG 645 ==
LOC: HO.ED 17:42 → HO.EDOVER 18:14 → HO.S3 02-06 15:34
PROVIDERS: Physician Assistant Medical; Admitting Provider Internal Medicine; Emergency Provider Emergency Medicine; PCP Physician Assistant; Visit Provider Internal Medicine
DX: E22.2 Syndrome of inappropriate secretion of antidiuretic hormone (principal); F79 Unspecified intellectual disabilities; G40.909 Epilepsy, unspecified, not intractable, without status epilepticus; F41.9 Anxiety disorder, unspecified; Z20.822 Contact with and (suspected) exposure to COVID-19; Z79.899 Other long term (current) drug therapy
CPT/HCPCS: 36415; 70450; 80048; 80053; 81003; 83605; 83735; 85025; 85027; 87635; 93005; 99285; J1650

== ENCOUNTER 2022-02-24 13:08 | Inpatient (IN) | payer MEDICARE, MEDICAID, SELFPAY ==
--- NOTE | ~2022-02-24 | CT_ITS ---
EXAMINATION: CT HEAD WITHOUT CONTRAST CLINICAL INFORMATION: Head trauma with multiple seizures. COMPARISON: Head CT from 02/05/2022. TECHNIQUE: Contiguous axial imaging was performed from the skullbase to vertex without intravenous administration of contrast. This CT examination was performed using dose optimization techniques as appropriate, variously including the following: *Automated exposure control *Adjustment of mA and/or kV according to patient size (this includes techniques or standardized protocols for targeted exams where dose is matched to indication/reason for exam; i.e. extremities or head) *Use of iterative reconstruction technique DLP: 541 mGy-cm. FINDINGS: Volume loss in the parietal-occipital lobes bilaterally again evident. Ex vacuo dilatation of the posterior bodies of the lateral ventricles again noted. There is no evidence of acute intracranial hemorrhage or territorial infarction. No abnormal mass effect or midline shift is seen. No extra-axial fluid collections are identified. The osseous structures and soft tissues are normal. The mastoid air cells and visualized portions of the paranasal sinuses are well aerated. CT/CT head/brain wo con IMPRESSION: No acute intracranial pathology. Stable examination.
[2022-02-24 13:36] VITALS: BP 135/97; BP 156/89; PULSE 75; PULSE 76; RESP 16; TEMP 37.2; O2SAT 96; O2SAT 99; BMI 23.1
--- NOTE | 2022-02-24 13:48 | ED_ITS ---
HPI - Seizure General Chief Complaint: Seizure Stated Complaint: SZ, NO LONGER POST ICTAL FROM NURSING HOME PER EMS Time Seen by Provider: 02/24/22 13:30 Source: patient Mode of arrival: EMS Limitations: physical limitation (Cognitive delay) History of Present Illness HPI Narrative: Patient presents emergency department via EMS, in the home. He had a witnessed seizure was able to be lowered to the floor without any fall head strike. Has history of seizures. Reportedly he has been medication compliant. When asked, patient states that he is ?fluid restricted? and he states that he is polyuria, although it is unclear whether patient is a great historian, due to his cognitive delay. He appears to be answering questions appropriately. Denies any complaints at this time. Denies recently feeling ill, having any pain. Seizure History: Yes Related Data Home Medications Medication Instructions Recorded Confirmed calcium carbonate 200 mg calcium 1,000 mg PO DAILY 12/31/21 02/24/22 (500 mg) chewable tablet (Juan-Gest Antacid) carbamazepine 400 mg 1 tab PO BID 12/31/21 02/24/22 tablet,extended release,12 hr cetirizine 10 mg tablet (Zyrtec) 10 mg PO DAILY PRN post nasal drip 12/31/21 02/24/22 cholecalciferol (vitamin D3) 50 100 mcg PO DAILY 12/31/21 02/24/22 mcg (2,000 unit) tablet (Vitamin D3) clonazepam 0.5 mg tablet 0.5 mg PO BID@1600,2000 12/31/21 02/24/22 clonazepam 0.5 mg tablet 1 mg PO DAILY 12/31/21 02/24/22 clonidine HCl 0.1 mg tablet 1 tab PO DAILY PRN 12/31/21 02/24/22 AGITATION,AGGRESSIVENESS diclofenac sodium 1 % topical gel 1 g topical QID PRN Pain (Scale 12/31/21 02/24/22 Score 4-6) divalproex 500 mg tablet,delayed 2 tab PO BID 12/31/21 02/24/22 release docusate sodium 100 mg capsule 100 mg PO BID 12/31/21 02/24/22 (Colace) levetiracetam 1,000 mg tablet 1 tab PO BID 12/31/21 02/24/22 lorazepam 2 mg tablet 1 tab PO TID PRN Seizures 12/31/21 02/24/22 multivitamin 1 tab PO DAILY 12/31/21 02/24/22 omega 3-val-xfb-fish oil 1,000 mg 1 cap PO DAILY 12/31/21 02/24/22 (120 mg-180 mg) capsule (Fish Oil) risperidone 0.5 mg tablet 1 tab PO BID 12/31/21 02/24/22 Allergies Allergy/AdvReac Type Severity Reaction Status Date / Time No Known Allergies Allergy Verified 12/31/21 15:26 [No Known Allergies*] Review of Systems Review of Systems: Constitutional: No fever or fatigue. Skin: No rash or itching. Cardiovascular: No chest pain.No palpitations. Respiratory: No shortness of breath, or cough. Gastrointestinal: No nausea, vomiting or diarrhea. No abdominal pain. Musculoskeletal: No muscle pain, back pain, joint pain or stiffness. Yes all other systems are reviewed and are negative and Other (Difficult to obtain due to mental status) [facility] Past Medical History Attestation statement: The following information was validated with the patient. 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 Housing: Other Housing Other:: retirement Alcohol intake: never Patient Tobacco Use Status: Never used Tobacco e-Cigarette/Vaping Use: Never Used Use of substances other than those prescribed or required for medical reasons: No Advance Directives: Yes Advance Directives on File: Yes Advance Directives Date on File: 02/06/22 service: No Current occupational status: disabled Physical Exam Vital Signs: Vital Signs: Last Vital Signs Temp 98.0 F 02/24/22 16:03 Pulse 71 02/24/22 16:03 Resp 16 02/24/22 16:03 BP 117/72 02/24/22 16:03 Pulse Ox 98 02/24/22 16:03 O2 Del Method 02/24/22 16:03 BMI result Body Mass Index 23.1 Appearance: Alert.?Oriented to person, place and time. No acute distress.?Normal affect. Eyes: Pupils equal, round and reactive to light.? EOMI. No nystagmus. ENT: Pharynx normal.?? Neck: Normal inspection.? Neck supple.?? CVS: Heart sounds normal. Normal heart rate and rhythm.? Pulses normal.?? Respiratory: No respiratory distress.? Lung sounds clear to auscultation bilaterally?? Abdomen: Soft and non-tender. Normoactive bowel sounds. Skin: Skin warm and dry.? Normal skin color.? Extremities: No lower extremity edema.? Neuro: Moves all extremities spontaneously. Sensation intact bilaterally. CN II- XII intact. No focal neuro deficits. Ambulates with normal steady gait. Course Course Course Narrative: Patient is a 46 male with a past medical history of cognitive delay anxiety, sei zure disorder who presents emergency today after a seizure. Vital signs are overall stable, he is mildly hypertensive. Physical exam is unremarkable. Patient with. Patient does have a history recent breakthrough seizures despite Tegretol, Depakote, and Keppra. Previously to have a hyponatremia thought to be related to SIADH. Recently admitted 02/05/22 - and discharged on a 1 L per day fluid restriction and Urea 15 g. He was to follow up with Nephrology and Neurology patient. At this time it is unclear whether follow-up has occurred. No notes available in the system. At this time retirement staff is not available to inquire. At this time will obtain labs in addition to urinal ysis for further evaluation. Seizure precautions in place. Reevaluation(s) Reevaluation #1: CBC reveals a normocytic anemia consistent baseline. Patient noted to have marked hyponatremia with sodium level of 122, will consult with nephrology, and plan for admission to hospitalist service. At this time, no focal neurologic defecits. I spoke with retirement program director substance abuse, Allen, who advises that he has not yet had a follow-up appointment with nephrology he is scheduled in March. He states that patient has been compliant with 1 L fluid restriction. However, he states that patient is not currently taking urea that it was discontinued by his primary care provider prior to his most recent hospitalization and he has not been restarted on that medication. Time: 14:59 Reevaluation #2: Spoke with Nephrology, Dr. Lujan, who recommends obtaining repeat electrolytes, urine osmolality, urine sodium level, and to begin patient back on Urea 15 g p.o. spoke with hospitalist service, Justin Elder NP who accepts patient for admission to medicine service Time: 16:02 MDM - Seizure Medical Records Attestation: I reviewed the patient's medical records. Lab Data Attestation: I reviewed the patient's lab results. Result diagrams: 02/24/22 13:54 02/24/22 16:12 Labs: Lab Results 02/24/22 02/24/22 02/24/22 Range/Units 13:54 13:54 15:40 WBC 4.8 (4.8-10.8) X10*3/uL RBC 4.03 L (4.60-5.80) X10*6/uL Hgb 13.2 L (14.0-18.0) g/dl Hct 36.6 L (42.0-52.0) % MCV 90.8 (80.0-98.0) fL MCH 32.8 (27.0-33.0) pg MCHC 36.1 H (31.0-36.0) g/dl RDW 12.4 (11.0-16.0) % Plt Count 213 (160-400) X10*3/uL MPV 9.4 (9.4-12.4) fL Immature Gran % (Auto) 0.4 (0.0-0.4) % Neut % (Auto) 63.5 (45-73) % Lymph % (Auto) 22.1 (20-40) % [place] % (Auto) 13.4 H (2-11) % Eos % (Auto) 0.2 (0-4) % Baso % (Auto) 0.4 (0-2) % Lymph # (Auto) 1.1 L (1.2-4.9) X10*3/uL [place] # (Auto) 0.6 (0.1-1.2) X10*3/uL Eos # (Auto) 0.0 (0.0-0.4) X10*3/uL Baso # (Auto) 0.0 (0.0-0.2) X10*3/uL Abs Immat Gran (auto) 0.02 (0.00-0.03) X10*3/uL Absolute Neuts (auto) 3.0 (2.0-8.3) x10*3/uL Absolute Nucleated RBC 0.000 (0.0-0.012) X10*3/uL Nucleated RBC % (auto) 0.0 (0.0-0.2) /100WBC Sodium 122 L (135-145) mmol/L Potassium 4.2 (3.3-5.1) mmol/L Chloride 91 L (96-108) mmol/L Carbon Dioxide 22 (22-29) mmol/L Anion Gap 13 (12-20) BUN 9 (9-16) mg/dL Creatinine 0.63 (0.5-1.4) mg/dL Estim Creat Clear Calc 135.0 Estimated GFR > 60 Random Glucose 97 (60-115) mg/dL Calcium 9.0 D (8.4-10.2) mg/dL Magnesium 1.9 (1.6-2.6) mg/dL Total Bilirubin 0.4 (0.0-1.0) mg/dL AST 20 (5-37) U/L ALT 14 (0-40) U/L Alkaline Phosphatase 35 L (39-117) U/L Total Protein 7.2 (6.5-8.0) g/dL Albumin 4.5 (3.5-5.0) g/dL Urine Color Yellow Urine Appearance Clear Urine pH 7.5 (5.0-8.0) Ur Specific [place] 1.015 (1.005-1.025) Urine Protein Negative (Neg-Trace) mg/dL Urine Glucose (UA) Negative (Negative) mg/dL Urine Ketones 15 (Negative) mg/dL Urine Blood Negative (Negative) Urine Nitrite Negative (Negative) Ur Leukocyte Esterase Negative (Negative) Urine Osmolality (373-1093) mosm/kg Ur Random Sodium mmol/L Valproic Acid 68.6 (50.0-100.0) mcg/mL Carbamazepine 7.9 (5.0-12.0) mcg/mL COVID-19 (JANICE) (Negative) COVID-19 Clin Com 02/24/22 02/24/22 02/24/22 Range/Units 16:12 16:12 16:12 WBC (4.8-10.8) X10*3/uL RBC (4.60-5.80) X10*6/uL Hgb (14.0-18.0) g/dl Hct (42.0-52.0) % MCV (80.0-98.0) fL MCH (27.0-33.0) pg MCHC (31.0-36.0) g/dl RDW (11.0-16.0) % Plt Count (160-400) X10*3/uL MPV (9.4-12.4) fL Immature Gran % (Auto) (0.0-0.4) % Neut % (Auto) (45-73) % Lymph % (Auto) (20-40) % [place] % (Auto) (2-11) % Eos % (Auto) (0-4) % Baso % (Auto) (0-2) % Lymph # (Auto) (1.2-4.9) X10*3/uL [place] # (Auto) (0.1-1.2) X10*3/uL Eos # (Auto) (0.0-0.4) X10*3/uL Baso # (Auto) (0.0-0.2) X10*3/uL Abs Immat Gran (auto) (0.00-0.03) X10*3/uL Absolute Neuts (auto) (2.0-8.3) x10*3/uL Absolute Nucleated RBC (0.0-0.012) X10*3/uL Nucleated RBC % (auto) (0.0-0.2) /100WBC Sodium 124 L (135-145) mmol/L Potassium 4.2 (3.3-5.1) mmol/L Chloride 91 L (96-108) mmol/L Carbon Dioxide 23 (22-29) mmol/L Anion Gap 14 (12-20) BUN 7 L (9-16) mg/dL Creatinine 0.60 (0.5-1.4) mg/dL Estim Creat Clear Calc 141.7 Estimated GFR > 60 Random Glucose 97 (60-115) mg/dL Calcium 9.1 (8.4-10.2) mg/dL Magnesium (1.6-2.6) mg/dL Total Bilirubin (0.0-1.0) mg/dL AST (5-37) U/L ALT (0-40) U/L Alkaline Phosphatase (39-117) U/L Total Protein (6.5-8.0) g/dL Albumin (3.5-5.0) g/dL Urine Color Urine Appearance Urine pH (5.0-8.0) Ur Specific [place] (1.005-1.025) Urine Protein (Neg-Trace) mg/dL Urine Glucose (UA) (Negative) mg/dL Urine Ketones (Negative) mg/dL Urine Blood (Negative) Urine Nitrite (Negative) Ur Leukocyte Esterase (Negative) Urine Osmolality 466 (373-1093) mosm/kg Ur Random Sodium 48.0 mmol/L Valproic Acid (50.0-100.0) mcg/mL Carbamazepine (5.0-12.0) mcg/mL COVID-19 (JANICE) (Negative) COVID-19 Clin Com 02/24/22 Range/Units 16:35 WBC (4.8-10.8) X10*3/uL RBC (4.60-5.80) X10*6/uL Hgb (14.0-18.0) g/dl Hct (42.0-52.0) % MCV (80.0-98.0) fL MCH (27.0-33.0) pg MCHC (31.0-36.0) g/dl RDW (11.0-16.0) % Plt Count (160-400) X10*3/uL MPV (9.4-12.4) fL Immature Gran % (Auto) (0.0-0.4) % Neut % (Auto) (45-73) % Lymph % (Auto) (20-40) % [place] % (Auto) (2-11) % Eos % (Auto) (0-4) % Baso % (Auto) (0-2) % Lymph # (Auto) (1.2-4.9) X10*3/uL [place] # (Auto) (0.1-1.2) X10*3/uL Eos # (Auto) (0.0-0.4) X10*3/uL Baso # (Auto) (0.0-0.2) X10*3/uL Abs Immat Gran (auto) (0.00-0.03) X10*3/uL Absolute Neuts (auto) (2.0-8.3) x10*3/uL Absolute Nucleated RBC (0.0-0.012) X10*3/uL Nucleated RBC % (auto) (0.0-0.2) /100WBC Sodium (135-145) mmol/L Potassium (3.3-5.1) mmol/L Chloride (96-108) mmol/L Carbon Dioxide (22-29) mmol/L Anion Gap (12-20) BUN (9-16) mg/dL Creatinine (0.5-1.4) mg/dL Estim Creat Clear Calc Estimated GFR Random Glucose (60-115) mg/dL Calcium (8.4-10.2) mg/dL Magnesium (1.6-2.6) mg/dL Total Bilirubin (0.0-1.0) mg/dL AST (5-37) U/L ALT (0-40) U/L Alkaline Phosphatase (39-117) U/L Total Protein (6.5-8.0) g/dL Albumin (3.5-5.0) g/dL Urine Color Urine Appearance Urine pH (5.0-8.0) Ur Specific [place] (1.005-1.025) Urine Protein (Neg-Trace) mg/dL Urine Glucose (UA) (Negative) mg/dL Urine Ketones (Negative) mg/dL Urine Blood (Negative) Urine Nitrite (Negative) Ur Leukocyte Esterase (Negative) Urine Osmolality (373-1093) mosm/kg Ur Random Sodium mmol/L Valproic Acid (50.0-100.0) mcg/mL Carbamazepine (5.0-12.0) mcg/mL COVID-19 (JANICE) Negative (Negative) COVID-19 Clin Com See Note Discharge Plan Discharge Patient Disposition: Admitted As Inpatient
[2022-02-24 13:58] LABS: MANUAL DIFF FLAG NO
[2022-02-24 14:00] LABS: Basophils Percent Auto 0.4 % (0-2); Eosinophils Percent Auto 0.2 % (0-4); Hematocrit 36.6 % (42.0-52.0); Hemoglobin 13.2 g/dl (14.0-18.0); Imm Gran Abs Auto 0.02 X10*3/uL (0.00-0.03); Imm Gran Pct Auto 0.4 % (0.0-0.4); Lymphocytes Absolute Auto 1.1 X10*3/uL (1.2-4.9); Lymphocytes Percent Auto 22.1 % (20-40); Mean Corpuscular HGB Conc 36.1 g/dl (31.0-36.0); Mean Corpuscular Hemoglobin 32.8 pg (27.0-33.0); Mean Corpuscular Volume 90.8 fL (80.0-98.0); Mean Platelet Volume 9.4 fL (9.4-12.4); Monocytes Absolute Auto 0.6 X10*3/uL (0.1-1.2); Monocytes Percent Auto 13.4 % (2-11); Neutrophils Percent Auto 63.5 % (45-73); Platelet Count 213 X10*3/uL (160-400); Red Blood Count 4.03 X10*6/uL (4.60-5.80); Red Cell Distribution Width 12.4 % (11.0-16.0); White Blood Count 4.8 X10*3/uL (4.8-10.8)
[2022-02-24 14:32] LABS: Alanine Aminotransferase 14 U/L (0-40); Albumin Level 4.5 g/dL (3.5-5.0); Alkaline Phosphatase 35 U/L (39-117); Anion Gap 13 (12-20); Aspartate Amino Transferase 20 U/L (5-37); Bilirubin Total 0.4 mg/dL (0.0-1.0); Blood Urea Nitrogen 9 mg/dL (9-16); Carbon Dioxide 22 mmol/L (22-29); Chloride 91 mmol/L (96-108); Estimated Glomerular Filt Rate > 60; Glucose Random 97 mg/dL (60-115); Magnesium 1.9 mg/dL (1.6-2.6); Potassium 4.2 mmol/L (3.3-5.1); Sodium 122 mmol/L (135-145); Total Protein 7.2 g/dL (6.5-8.0)
[2022-02-24 14:43] VITALS: BP 132/95; PULSE 75; RESP 18; O2SAT 99
[2022-02-24 15:09] LABS: Carbamazepine Tegretol 7.9 mcg/mL (5.0-12.0); Valproate 68.6 mcg/mL (50.0-100.0)
[2022-02-24 15:52] LABS: Appearance Urine Clear; Color Urine Yellow; Glucose Urine UA Negative (Negative); Leukocyte Esterase Urine Negative (Negative); Nitrite Urine Negative (Negative); PH 7.5 (5.0-8.0); Specific Gravity - Urine 1.015 (1.005-1.025); Urine Blood Negative (Negative); Urine Ketones 15 mg/dL (Negative); Urine Protein Negative (Neg-Trace)
[2022-02-24 16:03] VITALS: BP 117/72; PULSE 71; RESP 16; TEMP 36.7; O2SAT 98
[2022-02-24 16:31] LABS: Osmolality Urine 466 mosm/kg (373-1093)
[2022-02-24 16:34] LABS: Anion Gap 14 (12-20); Blood Urea Nitrogen 7 mg/dL (9-16); Calcium 9.1 mg/dL (8.4-10.2); Carbon Dioxide 23 mmol/L (22-29); Chloride 91 mmol/L (96-108); Creatinine Clr Calc Pharmacy 141.7; Estimated Glomerular Filt Rate > 60; Glucose Random 97 mg/dL (60-115); Potassium 4.2 mmol/L (3.3-5.1); Sodium 124 mmol/L (135-145)
--- NOTE | 2022-02-24 16:51 | P.HPHOSP_ITS ---
History of Present Illness Date of Service: 02/24/22 Chief Complaint: Seizure 46-year-old man presenting from [facility] after witnessed seizure. Does have a history of seizures and cognitive delay. He also has a history of hyponatremia as well as SIADH and has been on a fluid restriction since discharge on 02/07/2022. In the ER he has not had any further seizure activity he denied chest pain, shortness of breath, nausea, vomiting, diarrhea. Although he has intellectual delay he is able to answer questions appropriately apparently he has been on a L fluid restriction but not urea. ED provider did discuss with the deputy sheriff k9 handler who recommended continuing urea. Sodium initially was noted to be 122 with repeat of 124 all other labs within acceptable limits vital signs stable. He did receive a dose of urea in the ER. He was asking for his seizure medictions. He will be admitted for further management and treatment of acute seizure with acute on chronic hyponatremia. Review of Systems Review of Systems: Denies any recent fever chills or decrease in appetite respiratory denies any shortness of breath coverage production cardiovascular Denies chest pain gastrointestinal denies any dysphagia abdominal pain nausea vomiting or diarrhea genitourinary denies any dysuria frequency or hematuria musculoskeletal denies any joint pain or swelling neuropsych denies any weakness or seizures all other systems reviewed are negative [facility] Medical History Anxiety disorder, unspecified Intellectual disability Seizure disorder Family History Other No family history of coronary artery disease Surgical History No pertinent past surgical history Social History Household Members: Other Household Members Other:: group homr Housing: Other Housing Other:: [facility] Alcohol intake: never Patient Tobacco Use Status: Never used Tobacco e-Cigarette/Vaping Use: Never Used Use of substances other than those prescribed or required for medical reasons: No Advance Directives: Yes Advance Directives on File: Yes Advance Directives Date on File: 02/06/22 service: No Current occupational status: disabled Meds Allergies Allergy/AdvReac Type Severity Reaction Status Date / Time No Known Allergies Allergy Verified 12/31/21 15:26 [No Known Allergies*] Active Medications: Current Medications Acetaminophen (Acetaminophen 325 Mg Tablet) 650 mg PO Q6H PRN PRN Reason: Pain, Mild (Pain Scale 1-3) Enoxaparin Sodium (Enoxaparin Sodium 40 Mg/0.4 Ml Syringe) 40 mg SUBCUT Q24H [facility] Ondansetron HCl (Ondansetron Hcl 4 Mg/2 Ml Vial) 4 mg IVPUSH Q8H PRN PRN Reason: Nausea and Vomiting Pharmacy Consult (Consult Rx Perform Med Rec) 1 each MISCELLANE ONCE PRN PRN Reason: Consult order Sodium Chloride (0.9 % Sodium Chloride Flush 3 Ml Syringe) 3 ml IVFLUSH QSHIFT [facility] Home Medications Medication Instructions Recorded Confirmed Last Taken Type calcium carbonate 200 mg calcium 1,000 mg PO DAILY 12/31/21 02/24/22 02/23/22 History (500 mg) chewable tablet (Juan-Gest Antacid) carbamazepine 400 mg 1 tab PO BID 12/31/21 02/24/22 02/23/22 History tablet,extended release,12 hr cetirizine 10 mg tablet (Zyrtec) 10 mg PO DAILY PRN post nasal drip 12/31/21 02/24/22 02/23/22 History cholecalciferol (vitamin D3) 50 100 mcg PO DAILY 12/31/21 02/24/22 02/23/22 History mcg (2,000 unit) tablet (Vitamin D3) clonazepam 0.5 mg tablet 0.5 mg PO BID@1600,2000 12/31/21 02/24/22 02/23/22 History clonazepam 0.5 mg tablet 1 mg PO DAILY 12/31/21 02/24/22 02/23/22 History clonidine HCl 0.1 mg tablet 1 tab PO DAILY PRN 12/31/21 02/24/22 02/23/22 History AGITATION,AGGRESSIVENESS diclofenac sodium 1 % topical gel 1 g topical QID PRN Pain (Scale 12/31/21 02/24/22 02/23/22 History Score 4-6) divalproex 500 mg tablet,delayed 2 tab PO BID 12/31/21 02/24/22 02/23/22 History release docusate sodium 100 mg capsule 100 mg PO BID 12/31/21 02/24/22 02/23/22 History (Colace) levetiracetam 1,000 mg tablet 1 tab PO BID 12/31/21 02/24/22 02/23/22 History lorazepam 2 mg tablet 1 tab PO TID PRN Seizures 12/31/21 02/24/22 02/23/22 History multivitamin 1 tab PO DAILY 12/31/21 02/24/22 02/23/22 History omega 3-kho-aaz-fish oil 1,000 mg 1 cap PO DAILY 12/31/21 02/24/22 02/23/22 History (120 mg-180 mg) capsule (Fish Oil) risperidone 0.5 mg tablet 1 tab PO BID 12/31/21 02/24/22 02/23/22 History Physical Exam Vital Signs and Narrative: Vital Signs: Last Vital Signs Temp 98.0 F 02/24/22 16:03 Pulse 71 02/24/22 16:03 Resp 16 02/24/22 16:03 BP 117/72 02/24/22 16:03 Pulse Ox 98 02/24/22 16:03 O2 Del Method 02/24/22 16:03 BMI result Body Mass Index 23.1 Appearing in no acute distress head is normocephalic atraumatic eyes pupils are PERRLA sclera is anicteric mouth throat mucous membranes are intact and moist neck is supple no lymphadenopathy, no JVD noted lung sounds are clear to auscultation heart regular rate rhythm, clear S1, S2 positive bowel sounds, abdomen is soft, nontender neuro patient is alert x3, no focal deficits Results Labs CBC and Chem 7: 02/24/22 13:54 02/24/22 16:12 Labs: Laboratory Results - last 24 hr 02/24/22 02/24/22 02/24/22 13:54 13:54 15:40 MCV 90.8 MCH 32.8 MCHC 36.1 H RDW 12.4 Plt Count 213 MPV 9.4 Immature Gran % (Auto) 0.4 Neut % (Auto) 63.5 Lymph % (Auto) 22.1 [place] % (Auto) 13.4 H Eos % (Auto) 0.2 Baso % (Auto) 0.4 Lymph # (Auto) 1.1 L [place] # (Auto) 0.6 Eos # (Auto) 0.0 Baso # (Auto) 0.0 Abs Immat Gran (auto) 0.02 Absolute Neuts (auto) 3.0 Absolute Nucleated RBC 0.000 Nucleated RBC % (auto) 0.0 Anion Gap 13 Estim Creat Clear Calc 135.0 Estimated GFR > 60 Random Glucose 97 Calcium 9.0 D Magnesium 1.9 Total Bilirubin 0.4 AST 20 ALT 14 Alkaline Phosphatase 35 L Total Protein 7.2 Albumin 4.5 Urine Color Yellow Urine Appearance Clear Urine pH 7.5 Ur Specific [place] 1.015 Urine Protein Negative Urine Glucose (UA) Negative Urine Ketones 15 Urine Blood Negative Urine Nitrite Negative Ur Leukocyte Esterase Negative Urine Osmolality Ur Random Sodium Valproic Acid 68.6 Carbamazepine 7.9 02/24/22 02/24/22 02/24/22 16:12 16:12 16:12 MCV MCH MCHC RDW Plt Count MPV Immature Gran % (Auto) Neut % (Auto) Lymph % (Auto) [place] % (Auto) Eos % (Auto) Baso % (Auto) Lymph # (Auto) [place] # (Auto) Eos # (Auto) Baso # (Auto) Abs Immat Gran (auto) Absolute Neuts (auto) Absolute Nucleated RBC Nucleated RBC % (auto) Anion Gap 14 Estim Creat Clear Calc 141.7 Estimated GFR > 60 Random Glucose 97 Calcium 9.1 Magnesium Total Bilirubin AST ALT Alkaline Phosphatase Total Protein Albumin Urine Color Urine Appearance Urine pH Ur Specific [place] Urine Protein Urine Glucose (UA) Urine Ketones Urine Blood Urine Nitrite Ur Leukocyte Esterase Urine Osmolality 466 Ur Random Sodium 48.0 Valproic Acid Carbamazepine Assessment and Plan (1) Seizure: Status: Acute Plan 46 year old man from [facility] admitted with seizure and severe hyponatremia Acute on chronic Hyponatremia with hx of SIADH According to the record patient has been fluid restricting however he has been off urea nephrology consultation for further recommendations ED provider discussed with Nephrology, recommendation to restart urea 15 g p.o. Recheck BMP this evening Breakthrough seizure Complaint stated with seizure medication, continue Tegretol, Depakote and Keppra Possibly related to hyponatremia seizure precaution Mental health/ cognitive delay Continue all home medications DVT prophylaxis with Lovenox Attending Dr. Lang Full code 2 midnight for treatment of Severe hypontaremia, requiring specialty consultation and close monitoring of electrolytes Quality Stroke Does the patient have a stroke diagnosis?: No VTE Prior VTE?: No VTE Risk Level:: Medical - moderate - high VTE Device Contraindication: Treatment Not Indicated VTE Drug Contraindication: N/A - Med Ordered
[2022-02-24 16:58] LABS: COVID-19 Test Negative (Negative); IDNOW Serial# 16C4AD1C
--- NOTE | 2022-02-24 17:16 | PHA.MEDREC ---
Pharmacy Consult ? Medication Reconciliation Pharmacy has completed the medication reconciliation. Spoke to patients Nurse at the shelter (Allen Bustos).
[2022-02-24] MEDS: Urea 15 GM POWDER PO (17:57)
--- NOTE | 2022-02-24 19:05 | PC.NURSE ---
This RN called into room at shift change. PA, butcher supervisor in room. Pt. actively seizing. CUSTOM MILLER Justin Elder did not want 2mg IVP Versed given. Pt. has no other IVP meds for seizures. Family unhappy. Contacted Justin Elder NP to come speak with family and to obtain med order since she did not end up wanting 2mg IVP Versed given. CUSTOM MILLER said she is gone for day. Attempting to contact overnight Hospitalist for med orders and to come speak with pt.'s family as requested
[2022-02-24] MEDS: levETIRAcetam in NaCl (iso-os) 1,000 MG/100 ML PIGGYBACK 400 MG IV (19:11)
--- NOTE | 2022-02-24 19:15 | PC.NURSE ---
PRN Versed ordered by Desi Zimmerman MD if pt. begins actively seizing again
[2022-02-24] MEDS: clonazePAM 0.5 MG TABLET PO (19:18)
[2022-02-24] MEDS: Enoxaparin Sodium 40 MG/0.4 ML SYRINGE SUBCUT (19:20)
[2022-02-24 19:22] VITALS: BP 155/90; PULSE 87; RESP 16; TEMP 36.6; O2SAT 100
[2022-02-24] MEDS: risperiDONE 0.5 MG TABLET PO (20:27)
[2022-02-24] MEDS: levETIRAcetam 1,000 MG TABLET 1000 MG PO (20:28)
[2022-02-24] MEDS: Divalproex Sodium 500 MG TABLET.DR 1000 MG PO (20:28)
[2022-02-24 21:01] LABS: Anion Gap 18 (12-20); Blood Urea Nitrogen 13 mg/dL (9-16); Calcium 9.2 mg/dL (8.4-10.2); Carbon Dioxide 16 mmol/L (22-29); Chloride 96 mmol/L (96-108); Estimated Glomerular Filt Rate > 60; Glucose Random 140 mg/dL (60-115); Potassium 4.8 mmol/L (3.3-5.1); Sodium 125 mmol/L (135-145)
--- NOTE | 2022-02-24 21:01 | PC.NURSE ---
Father, Mati Anaya, leaving for the night and would like to leave his contact number with this RN - [phone]
[2022-02-24] MEDS: carBAMazepine ER 200 MG TAB.ER.12H 400 MG PO (21:43)
[2022-02-24] MEDS: Acetaminophen 325 MG TABLET 650 MG PO (21:44)
[2022-02-25 04:39] LABS: MANUAL DIFF FLAG NO
[2022-02-25 04:40] LABS: Basophils Percent Auto 0.3 % (0-2); Eosinophils Percent Auto 0.3 % (0-4); Hematocrit 36.8 % (42.0-52.0); Hemoglobin 13.5 g/dl (14.0-18.0); Imm Gran Abs Auto 0.03 X10*3/uL (0.00-0.03); Imm Gran Pct Auto 0.5 % (0.0-0.4); Mean Corpuscular HGB Conc 36.7 g/dl (31.0-36.0); Mean Corpuscular Hemoglobin 33.1 pg (27.0-33.0); Mean Corpuscular Volume 90.2 fL (80.0-98.0); Mean Platelet Volume 9.5 fL (9.4-12.4); Monocytes Absolute Auto 0.9 X10*3/uL (0.1-1.2); Monocytes Percent Auto 14.4 % (2-11); Neutrophils Absolute Auto 3.3 x10*3/uL (2.0-8.3); Neutrophils Percent Auto 52.5 % (45-73); Platelet Count 212 X10*3/uL (160-400); Red Blood Count 4.08 X10*6/uL (4.60-5.80); Red Cell Distribution Width 12.5 % (11.0-16.0); White Blood Count 6.3 X10*3/uL (4.8-10.8)
--- NOTE | 2022-02-25 04:53 | CONS_ITS ---
DATE OF SERVICE: REASON FOR CONSULTATION: I was asked to see patient to assist in evaluation and management of patient's recurrent hyponatremia as reflected by serum sodium today of 122 on admission in association with a seizure at the assisted where he lives. HISTORY OF PRESENT ILLNESS: In summary, the patient is a 46-year-old gentleman who lives in a assisted for a witnessed seizure and he is maintained on . The patient has had similar admissions recently with again the episode of the seizure, that seemed to be precipitated by hyponatremia. During a previous hospitalization, he was diagnosed with SIADH and was discharged home, on a fluid restriction and urea. Apparently since discharge on February 07, he has been on the fluid restriction, but for some reason, was not continued on the urea. He now comes in again with a serum sodium 122 and a seizure. Information was obtained from electronic medical record. PAST MEDICAL HISTORY: Notable for seizure disorder, intellectual disability, anxiety disorder. MEDICATIONS: His medications on admission are noted in the records and include Tegretol, which he has been on for quite some time along with Klonopin, clonidine, Depakote, Levitra, lorazepam, and risperidone. Current medications are as noted in the MAR. ALLERGIES: HE HAS NO KNOWN DRUG ALLERGIES. SOCIAL HISTORY: He is a nondrinker, nonsmoker, and lives in a assisted. REVIEW OF SYSTEMS: Unobtainable. PHYSICAL EXAMINATION: VITAL SIGNS: Blood pressure 140/80 with a heart rate in the 70s. HEENT: Head atraumatic and normocephalic. NECK: Supple. Mucous membranes moist. LUNGS: Clear. CARDIAC: Regular rate and rhythm. ABDOMEN: Soft and nontender. EXTREMITIES: Show no edema. LABORATORY DATA: Hemoglobin 13.2, hematocrit 36.6, white blood cell count 4.8. Sodium of 122, potassium 4.2, chloride 91, bicarb 22, BUN 9, creatinine 0.6. As mentioned on February 05, on his last hospitalization, serum sodium was 122 at the time of discharge, is up to 136 on February 07. Urine studies show urine osmolality 446, urine sodium of 48. I do not see a TSH or cortisol level during his last hospitalization. IMPRESSION: A 46-YEAR-OLD GENTLEMAN WITH SEIZURE DISORDER, ADMITTED WITH HYPONATREMIA AND A SEIZURE EVENT. 1. Euvolemic hyponatremia. The patient most likely has underlying syndrome of inappropriate antidiuretic hormone secretion related to his antiseizure medications and/or his risperidone. Ideally, we would like to get him off the Tegretol, which is the likely culprit for his syndrome of inappropriate antidiuretic hormone secretion, but this will increase his seizures and so we will keep it on. Instead, he should be maintained on urea and a moderate p.o. fluid restriction. It seems during his last hospitalization, this worked for him. He might also add salt tablets. Our goal now is to gradually correct his serum sodium. 2. Seizure disorder. The hyponatremia certainly can lower seizure threshold and be a culprit here. SUGGESTIONS: At this time include continue p.o. fluid restriction. Restart on the urea 15 g twice a day and go up as needed. Monitor serum sodium correct too quickly. Check an a.m. TSH level and cortisol level. We will follow the patient with the team. MD ROBERT Duran/LINO / [id number]
[2022-02-25 04:58] LABS: Anion Gap 15 (12-20); Blood Urea Nitrogen 12 mg/dL (9-16); Calcium 8.9 mg/dL (8.4-10.2); Carbon Dioxide 22 mmol/L (22-29); Chloride 94 mmol/L (96-108); Creatinine Clr Calc Pharmacy 130.8; Estimated Glomerular Filt Rate > 60; Glucose Random 93 mg/dL (60-115); Magnesium 2.1 mg/dL (1.6-2.6); Potassium 4.1 mmol/L (3.3-5.1); Sodium 127 mmol/L (135-145)
[2022-02-25 05:49] VITALS: BP 124/81; PULSE 65; RESP 16; O2SAT 100
[2022-02-25] MEDS: Acetaminophen 325 MG TABLET 650 MG PO ×2 (05:52→13:04)
[2022-02-25 07:05] VITALS: BP 128/93; PULSE 68; RESP 11; TEMP 36.9; O2SAT 100
[2022-02-25] MEDS: levETIRAcetam 1,000 MG TABLET 1000 MG PO ×2 (08:03→22:16)
[2022-02-25] MEDS: clonazePAM 1 MG TABLET PO (08:03)
[2022-02-25] MEDS: carBAMazepine ER 200 MG TAB.ER.12H 400 MG PO ×2 (08:03→22:15)
[2022-02-25] MEDS: Divalproex Sodium 500 MG TABLET.DR 1000 MG PO ×2 (08:03→22:16)
[2022-02-25] MEDS: Multivitamin TABLET 1 TAB PO (08:03)
[2022-02-25] MEDS: Docusate Sodium 100 MG CAPSULE PO ×2 (08:04→22:16)
[2022-02-25] MEDS: risperiDONE 0.5 MG TABLET PO ×2 (08:04→22:16)
[2022-02-25] MEDS: 0.9 % Sodium Chloride Flush 3 ML SYRINGE IVFLUSH ×2 (08:04→17:34)
--- NOTE | 2022-02-25 08:15 | PC.NURSE ---
PT A&O X4. ASKING QUESTIONS ABOUT FLUID RESTRICTIONS, IV. PT REASSURED THAT HE CAN HAVE COFFEE AND IV CATHLON SHOWED TO PT. AWAITING BED ON FLOOR
[2022-02-25 08:16] LABS: TSH reflex Free T4 1.03 uIU/mL (0.32-4.0)
--- NOTE | 2022-02-25 09:05 | MHC.CM.PN ---
Patient has a diagnosis of Cognitive Delay/Intellectual Disability; CM spoke with Father/HCP/Allen @ [phone] and addressed IMM with him, mailing the original certified male to Allen and placing a copy on the chart. Patient is a Resident at his [facility] and the goal is for him to return there once medically cleared for dc. CM has initiated and will follow for dc planning. Patient has received Covid vax X3 and his new PCP is from the [facility] [place] in [place] ([phone]).
[2022-02-25] MEDS: Cholecalciferol (Vitamin D3) 25 MCG TABLET 100 MCG PO (09:31)
--- NOTE | 2022-02-25 09:34 | PC.NURSE ---
pt incontinnt of loose stool. moved to overflow unit
[2022-02-25] MEDS: Urea 15 GM POWDER PO ×2 (11:22→22:17)
[2022-02-25 13:12] VITALS: BP 141/98; PULSE 83; RESP 20; O2SAT 100
--- NOTE | 2022-02-25 15:05 | P.PNIM_ITS ---
Subjective Subjective Date of Service: 02/25/22 Interval History: no further seizures no headache Physical Exam Vital Signs: Vital Signs: Last Vital Signs Temp 98.4 F 02/25/22 07:05 Pulse 83 02/25/22 13:12 Resp 20 02/25/22 13:12 BP 141/98 H 02/25/22 13:12 Pulse Ox 100 02/25/22 13:12 O2 Del Method 02/25/22 13:12 BMI result Body Mass Index 23.1 Gen: in no acute distress HEENT: sclera anicteric, moist mucus membranes Neck: supple Lungs: clear to auscultation bilaterally Heart: regular rate and rhythm, no murmurs Abd: soft, non-tender, non-distended Ext: no edema Skin: warm/well-perfused Neuro: alert and oriented x3, no focal findings Psych: appropriate affect Objective Data Active Medications Acetaminophen (Acetaminophen 325 Mg Tablet) 650 mg PO Q6H PRN PRN Reason: Pain, Mild (Pain Scale 1-3) Last Admin: 02/25/22 13:04 Dose: 650 mg Documented By: TRAVON Calcium Carbonate (Calcium Carbonate 500 Mg Tablet) 1,000 mg PO DAILY [facility] Last Admin: 02/25/22 09:31 Dose: 1,000 mg Documented By: NIXON Carbamazepine (Carbamazepine Er 200 Mg Tab.Er.12h) 400 mg PO BID [facility] Last Admin: 02/25/22 08:03 Dose: 400 mg Documented By: NIXON Clonazepam (Clonazepam 0.5 Mg Tablet) 0.5 mg PO BID@1600,2000 [facility] Last Admin: 02/24/22 19:18 Dose: 0.5 mg Documented By: MARCIO Clonazepam (Clonazepam 1 Mg Tablet) 1 mg PO DAILY [facility] Last Admin: 02/25/22 08:03 Dose: 1 mg Documented By: NIXON Clonidine HCl (Clonidine Hcl 0.1 Mg Tablet) 0.1 mg PO DAILY PRN; Protocol PRN Reason: AGITATION,AGGRESSIVENESS Divalproex Sodium (Divalproex Sodium 500 Mg Tablet.) 1,000 mg PO BID [facility] Last Admin: 02/25/22 08:03 Dose: 1,000 mg Documented By: NIXON Docusate Sodium (Docusate Sodium 100 Mg Capsule) 100 mg PO BID [facility] Last Admin: 02/25/22 08:04 Dose: 100 mg Documented By: NIXON Enoxaparin Sodium (Enoxaparin Sodium 40 Mg/0.4 Ml Syringe) 40 mg SUBCUT Q24H [facility] Last Admin: 02/24/22 19:20 Dose: 40 mg Documented By: MARCIO Levetiracetam (Levetiracetam 1,000 Mg Tablet) 1,000 mg PO BID [facility] Last Admin: 02/25/22 08:03 Dose: 1,000 mg Documented By: NIXON Loratadine (Loratadine 10 Mg Tablet) 10 mg PO DAILY PRN PRN Reason: post nasal drip Lorazepam (Lorazepam 1 Mg Tablet) 2 mg PO TID PRN PRN Reason: Seizures Midazolam HCl (Midazolam Hcl/Pf 2 Mg/2 Ml Vial) 2 mg IVPUSH Q15M PRN PRN Reason: seizure Multivitamins/Vitamin C (Multivitamin Tablet) 1 tab PO DAILY [facility] Last Admin: 02/25/22 08:03 Dose: 1 tab Documented By: NIXON Non-Formulary Medication (Diclofenac Sodium) 1 gm TOPICAL QID PRN PRN Reason: Pain (Scale Score 4-6) Ondansetron HCl (Ondansetron Hcl 4 Mg/2 Ml Vial) 4 mg IVPUSH Q8H PRN PRN Reason: Nausea and Vomiting Pharmacy Consult (Consult Rx Perform Med Rec) 1 each MISCELLANE ONCE PRN PRN Reason: Consult order Risperidone (Risperidone 0.5 Mg Tablet) 0.5 mg PO BID [facility] Last Admin: 02/25/22 08:04 Dose: 0.5 mg Documented By: NIXON Sodium Chloride (0.9 % Sodium Chloride Flush 3 Ml Syringe) 3 ml IVFLUSH QSHIFT [facility] Last Admin: 02/25/22 08:04 Dose: 3 ml Documented By: NIXON Urea (Urea 15 Gm Powder) 15 gm PO BID [facility] Last Admin: 02/25/22 11:22 Dose: 15 gm Documented By: AMANDA Vitamin D (Cholecalciferol (Vitamin D3) 25 Mcg Tablet) 100 mcg PO DAILY [facility] Last Admin: 02/25/22 09:31 Dose: 100 mcg Documented By: NIXON Labs CBC & Chem 7: 02/25/22 04:22 02/25/22 04:22 Labs: Laboratory Results - last 24 hr 02/24/22 02/24/22 02/24/22 13:54 15:40 16:12 MCV MCH MCHC RDW Plt Count MPV Immature Gran % (Auto) Neut % (Auto) Lymph % (Auto) [place] % (Auto) Eos % (Auto) Baso % (Auto) Lymph # (Auto) [place] # (Auto) Eos # (Auto) Baso # (Auto) Abs Immat Gran (auto) Absolute Neuts (auto) Absolute Nucleated RBC Nucleated RBC % (auto) Anion Gap 14 Estim Creat Clear Calc 141.7 Estimated GFR > 60 Random Glucose 97 Calcium 9.1 Magnesium TSH Urine Color Yellow Urine Appearance Clear Urine pH 7.5 Ur Specific [place] 1.015 Urine Protein Negative Urine Glucose (UA) Negative Urine Ketones 15 Urine Blood Negative Urine Nitrite Negative Ur Leukocyte Esterase Negative Urine Osmolality Ur Random Sodium Valproic Acid 68.6 Carbamazepine 7.9 COVID-19 (JANICE) COVID-c8apps 02/24/22 02/24/22 02/24/22 16:12 16:12 16:35 MCV MCH MCHC RDW Plt Count MPV Immature Gran % (Auto) Neut % (Auto) Lymph % (Auto) [place] % (Auto) Eos % (Auto) Baso % (Auto) Lymph # (Auto) [place] # (Auto) Eos # (Auto) Baso # (Auto) Abs Immat Gran (auto) Absolute Neuts (auto) Absolute Nucleated RBC Nucleated RBC % (auto) Anion Gap Estim Creat Clear Calc Estimated GFR Random Glucose Calcium Magnesium TSH Urine Color Urine Appearance Urine pH Ur Specific [place] Urine Protein Urine Glucose (UA) Urine Ketones Urine Blood Urine Nitrite Ur Leukocyte Esterase Urine Osmolality 466 Ur Random Sodium 48.0 Valproic Acid Carbamazepine COVID-19 (JANICE) Negative COVID-19 [place] Com See Note 02/24/22 02/25/22 02/25/22 20:23 04:22 04:22 MCV 90.2 MCH 33.1 H MCHC 36.7 H RDW 12.5 Plt Count 212 MPV 9.5 Immature Gran % (Auto) 0.5 H Neut % (Auto) 52.5 Lymph % (Auto) 32.0 [place] % (Auto) 14.4 H Eos % (Auto) 0.3 Baso % (Auto) 0.3 Lymph # (Auto) 2.0 [place] # (Auto) 0.9 Eos # (Auto) 0.0 Baso # (Auto) 0.0 Abs Immat Gran (auto) 0.03 Absolute Neuts (auto) 3.3 Absolute Nucleated RBC 0.000 Nucleated RBC % (auto) 0.0 Anion Gap 18 15 Estim Creat Clear Calc 135.0 130.8 Estimated GFR > 60 > 60 Random Glucose 140 H D 93 Calcium 9.2 8.9 Magnesium TSH Urine Color Urine Appearance Urine pH Ur Specific [place] Urine Protein Urine Glucose (UA) Urine Ketones Urine Blood Urine Nitrite Ur Leukocyte Esterase Urine Osmolality Ur Random Sodium Valproic Acid Carbamazepine COVID-19 (JANICE) COVID-19 Clin Com 02/25/22 02/25/22 04:22 07:16 MCV MCH MCHC RDW Plt Count MPV Immature Gran % (Auto) Neut % (Auto) Lymph % (Auto) [place] % (Auto) Eos % (Auto) Baso % (Auto) Lymph # (Auto) [place] # (Auto) Eos # (Auto) Baso # (Auto) Abs Immat Gran (auto) Absolute Neuts (auto) Absolute Nucleated RBC Nucleated RBC % (auto) Anion Gap Estim Creat Clear Calc Estimated GFR Random Glucose Calcium Magnesium 2.1 TSH 1.03 Urine Color Urine Appearance Urine pH Ur Specific [place] Urine Protein Urine Glucose (UA) Urine Ketones Urine Blood Urine Nitrite Ur Leukocyte Esterase Urine Osmolality Ur Random Sodium Valproic Acid Carbamazepine COVID-19 (JANICE) COVID-19 Clin Com Assessment and Plan (1) Seizure: Status: Acute (2) Hyponatremia: Status: Acute Plan 46yo M with hx anoxic brain injury, cognitive delay, seizure disorder admitted with seizure possibly related to hyponatremia, recurrent # hyponatremia - likely 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 - fluid restriction to 1000 mL/d, resume urea 15 g PO bid [pt was not getting] and continue upon discharge - Na correcting at appropriate rate - will need periodic BMP monitoring and outpatient Nephrology and Neurology consultations [for the latter, pt sees Dr Tamayo at [facility]] # breakthrough seizures - continue carbamazepine, divalproex, and levetiracetam # cognitive delay/behavioral disturbance - continue chronic medications [clonazepam, risperidone, clonidine, risperidone] # VTE ppx: LMWH In my clinical judgment, the patient requires continued hospitalization for the following reasons: electrolyte monitoring, seizure precautions Quality Stroke Does the patient have a stroke diagnosis?: No VTE Prior VTE?: No VTE Risk Level:: Medical - moderate - high VTE Device Contraindication: Treatment Not Indicated VTE Drug Contraindication: N/A - Med Ordered
[2022-02-25] MEDS: Enoxaparin Sodium 40 MG/0.4 ML SYRINGE SUBCUT (17:32)
[2022-02-25] MEDS: clonazePAM 0.5 MG TABLET PO ×2 (17:32→22:15)
--- NOTE | 2022-02-25 19:13 | P.PNNP_ITS ---
Subjective Subjective Date of Service: 02/25/22 Interval history: Seen and examiend, events noted Physical Exam Vital Signs: Vital Signs: Last Vital Signs Temp 98.4 F 02/25/22 07:05 Pulse 83 02/25/22 13:12 Resp 20 02/25/22 13:12 BP 141/98 H 02/25/22 13:12 Pulse Ox 100 02/25/22 13:12 O2 Del Method 02/25/22 13:12 BMI result Body Mass Index 23.1 Objective Data Labs CBC & Chem 7: 02/25/22 04:22 02/25/22 04:22 Labs: Laboratory Results - last 24 hr 02/24/22 02/25/22 02/25/22 20:23 04:22 04:22 WBC 6.3 RBC 4.08 L Hgb 13.5 L Hct 36.8 L MCV 90.2 MCH 33.1 H MCHC 36.7 H RDW 12.5 Plt Count 212 MPV 9.5 Immature Gran % (Auto) 0.5 H Neut % (Auto) 52.5 Lymph % (Auto) 32.0 [place] % (Auto) 14.4 H Eos % (Auto) 0.3 Baso % (Auto) 0.3 Lymph # (Auto) 2.0 [place] # (Auto) 0.9 Eos # (Auto) 0.0 Baso # (Auto) 0.0 Abs Immat Gran (auto) 0.03 Absolute Neuts (auto) 3.3 Absolute Nucleated RBC 0.000 Nucleated RBC % (auto) 0.0 Sodium 125 L 127 L Potassium 4.8 4.1 Chloride 96 94 L Carbon Dioxide 16 L 22 Anion Gap 18 15 BUN 13 D 12 Creatinine 0.63 0.65 Estim Creat Clear Calc 135.0 130.8 Estimated GFR > 60 > 60 Random Glucose 140 H D 93 Calcium 9.2 8.9 Magnesium TSH 02/25/22 02/25/22 04:22 07:16 WBC RBC Hgb Hct MCV MCH MCHC RDW Plt Count MPV Immature Gran % (Auto) Neut % (Auto) Lymph % (Auto) [place] % (Auto) Eos % (Auto) Baso % (Auto) Lymph # (Auto) [place] # (Auto) Eos # (Auto) Baso # (Auto) Abs Immat Gran (auto) Absolute Neuts (auto) Absolute Nucleated RBC Nucleated RBC % (auto) Sodium Potassium Chloride Carbon Dioxide Anion Gap BUN Creatinine Estim Creat Clear Calc Estimated GFR Random Glucose Calcium Magnesium 2.1 TSH 1.03 Procedures Date of Service Date of Service: 02/25/22 Assessment & Plan Assessment and plan (1) Seizure: Status: Acute (2) Hyponatremia: Status: Acute Plan Euvolemic HypoNa recurrent prob that was being managed with combination of fludi rest and UREA--the latter was d/c as outpt Suspect tegetretol is likely culprit for SIADH REC:am cortisol ordered; agree with starting UREA 15 gm bid and ocnrt PO fluid rstriction; cont to track SNa to mke sure it does not incr too fast Time Spent With Patient Time: Total time spent is greater than 50% in coordination of care (as documented) at patient's floor/unit and/or counseling patient: Progress Note: Quality Stroke Does the patient have a stroke diagnosis?: No
--- NOTE | 2022-02-25 19:37 | PC.NURSE ---
report recived from day shift RN. attempting to call report to med surg floor RN. pt to be transported shortly. call baltazar within reach
--- NOTE | 2022-02-25 20:20 | PC.NURSE ---
report given to Yessenia ALCOCER @2015
[2022-02-25 20:24] LABS: Anion Gap 19 (12-20); Carbon Dioxide 18 mmol/L (22-29); Chloride 97 mmol/L (96-108); Sodium 129 mmol/L (135-145)
[2022-02-25 20:46] VITALS: BP 136/81; PULSE 96; RESP 16; TEMP 36.8; O2SAT 99
[2022-02-26] VITALS (8 sets, daily range): BP systolic 111–141; BP diastolic 59–104; PULSE 74–102; RESP 16–20; TEMP 35.9–36.5; O2SAT 96–100
[2022-02-26] MEDS: LORazepam 0.5 MG TABLET PO (00:50)
[2022-02-26] MEDS: 0.9 % Sodium Chloride Flush 3 ML SYRINGE IVFLUSH ×4 (00:50→20:13)
[2022-02-26 07:52] LABS: Anion Gap 18 (12-20); Blood Urea Nitrogen 16 mg/dL (9-16); Carbon Dioxide 20 mmol/L (22-29); Chloride 97 mmol/L (96-108); Creatinine Clr Calc Pharmacy 139.4; Estimated Glomerular Filt Rate > 60; Glucose Random 84 mg/dL (60-115); Potassium 4.6 mmol/L (3.3-5.1); Sodium 130 mmol/L (135-145)
[2022-02-26] MEDS: Urea 15 GM POWDER PO ×2 (09:28→20:13)
[2022-02-26] MEDS: Docusate Sodium 100 MG CAPSULE PO ×2 (09:28→20:13)
[2022-02-26] MEDS: carBAMazepine ER 200 MG TAB.ER.12H 400 MG PO ×2 (09:29→20:13)
[2022-02-26] MEDS: Multivitamin TABLET 1 TAB PO (09:29)
[2022-02-26] MEDS: Divalproex Sodium 500 MG TABLET.DR 1000 MG PO ×2 (09:29→20:13)
[2022-02-26] MEDS: levETIRAcetam 1,000 MG TABLET 1000 MG PO ×2 (09:29→20:12)
[2022-02-26] MEDS: Cholecalciferol (Vitamin D3) 25 MCG TABLET 100 MCG PO (09:29)
[2022-02-26] MEDS: clonazePAM 1 MG TABLET PO (09:30)
[2022-02-26] MEDS: risperiDONE 0.5 MG TABLET PO ×2 (09:30→20:13)
--- NOTE | 2022-02-26 12:33 | HO.PM.IMPN ---
Subjective Subjective Date of Service: 02/26/22 Interval History: had brief episode of feeling off , lasted <30 sec, came back to baseline immediately. pt's father states this is typical for him. no actual seizure activity Review of Systems Review of Systems: Yes all other systems are reviewed and are negative Physical Exam Vital Signs: Vital Signs: Last Vital Signs Temp 97.3 F 02/26/22 11:29 Pulse 88 02/26/22 11:29 Resp 18 02/26/22 11:29 BP 140/87 H 02/26/22 11:29 Pulse Ox 96 02/26/22 11:29 O2 Del Method 02/26/22 11:29 BMI result Body Mass Index 23.1 Gen: in no acute distress HEENT: sclera anicteric, moist mucus membranes Neck: supple Lungs: clear to auscultation bilaterally Heart: regular rate and rhythm, no murmurs Abd: soft, non-tender, non-distended Ext: no edema Skin: warm/well-perfused Neuro: alert and oriented x3, no focal findings Psych: appropriate affect Objective Data Active Medications Acetaminophen (Acetaminophen 325 Mg Tablet) 650 mg PO Q6H PRN PRN Reason: Pain, Mild (Pain Scale 1-3) Last Admin: 02/25/22 13:04 Dose: 650 mg Documented By: TRAVON Calcium Carbonate (Calcium Carbonate 500 Mg Tablet) 1,000 mg PO DAILY [facility] Last Admin: 02/26/22 09:28 Dose: 1,000 mg Documented By: LUBNA Carbamazepine (Carbamazepine Er 200 Mg Tab.Er.12h) 400 mg PO BID [facility] Last Admin: 02/26/22 09:29 Dose: 400 mg Documented By: LUBNA Clonazepam (Clonazepam 0.5 Mg Tablet) 0.5 mg PO BID@1600,2000 [facility] Last Admin: 02/25/22 22:15 Dose: 0.5 mg Documented By: TAMI Clonazepam (Clonazepam 1 Mg Tablet) 1 mg PO DAILY [facility] Last Admin: 02/26/22 09:30 Dose: 1 mg Documented By: LUBNA Clonidine HCl (Clonidine Hcl 0.1 Mg Tablet) 0.1 mg PO DAILY PRN; Protocol PRN Reason: AGITATION,AGGRESSIVENESS Divalproex Sodium (Divalproex Sodium 500 Mg Tablet.) 1,000 mg PO BID [facility] Last Admin: 02/26/22 09:29 Dose: 1,000 mg Documented By: LUBNA Docusate Sodium (Docusate Sodium 100 Mg Capsule) 100 mg PO BID [facility] Last Admin: 02/26/22 09:28 Dose: 100 mg Documented By: LUBNA Enoxaparin Sodium (Enoxaparin Sodium 40 Mg/0.4 Ml Syringe) 40 mg SUBCUT Q24H [facility] Last Admin: 02/25/22 17:32 Dose: 40 mg Documented By: ALONZO-RIVSANJIV Levetiracetam (Levetiracetam 1,000 Mg Tablet) 1,000 mg PO BID [facility] Last Admin: 02/26/22 09:29 Dose: 1,000 mg Documented By: LUBNA Loratadine (Loratadine 10 Mg Tablet) 10 mg PO DAILY PRN PRN Reason: post nasal drip Lorazepam (Lorazepam 1 Mg Tablet) 2 mg PO TID PRN PRN Reason: Seizures Midazolam HCl (Midazolam Hcl/Pf 2 Mg/2 Ml Vial) 2 mg IVPUSH Q15M PRN PRN Reason: seizure Multivitamins/Vitamin C (Multivitamin Tablet) 1 tab PO DAILY [facility] Last Admin: 02/26/22 09:29 Dose: 1 tab Documented By: LUBNA Non-Formulary Medication (Diclofenac Sodium) 1 gm TOPICAL QID PRN PRN Reason: Pain (Scale Score 4-6) Ondansetron HCl (Ondansetron Hcl 4 Mg/2 Ml Vial) 4 mg IVPUSH Q8H PRN PRN Reason: Nausea and Vomiting Pharmacy Consult (Consult Rx Perform Med Rec) 1 each MISCELLANE ONCE PRN PRN Reason: Consult order Risperidone (Risperidone 0.5 Mg Tablet) 0.5 mg PO BID [facility] Last Admin: 02/26/22 09:30 Dose: 0.5 mg Documented By: LUBNA Sodium Chloride (0.9 % Sodium Chloride Flush 3 Ml Syringe) 3 ml IVFLUSH [facility] Last Admin: 02/26/22 09:27 Dose: 3 ml Documented By: LUBNA Urea (Urea 15 Gm Powder) 15 gm PO BID [facility] Last Admin: 02/26/22 09:28 Dose: 15 gm Documented By: LUBNA Vitamin D (Cholecalciferol (Vitamin D3) 25 Mcg Tablet) 100 mcg PO DAILY [facility] Last Admin: 02/26/22 09:29 Dose: 100 mcg Documented By: LUBNA Labs CBC & Chem 7: 02/25/22 04:22 02/26/22 06:00 Labs: Laboratory Results - last 24 hr 02/25/22 02/26/22 20:02 06:00 Anion Gap 19 18 Estim Creat Clear Calc 139.4 Estimated GFR > 60 Random Glucose 84 Calcium 9.0 Assessment and Plan (1) Seizure: Status: Acute (2) Hyponatremia: Status: Acute Plan 46yo M with hx anoxic brain injury, cognitive delay, seizure disorder admitted with recurrent seizure thought to be related to hypoNa # hyponatremia - 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] # breakthrough seizures - continue carbamazepine, divalproex, and levetiracetam and correct Na as above # cognitive delay/behavioral disturbance - continue chronic medications [clonazepam, risperidone, clonidine, risperidone] # VTE ppx: LMWH In my clinical judgment, the patient requires continued hospitalization for the following reasons: electrolyte monitoring, seizure precautions Quality Stroke Does the patient have a stroke diagnosis?: No VTE Prior VTE?: No VTE Risk Level:: Medical - moderate - high VTE Device Contraindication: Treatment Not Indicated VTE Drug Contraindication: N/A - Med Ordered
[2022-02-26] MEDS: clonazePAM 0.5 MG TABLET PO ×2 (15:26→20:13)
[2022-02-26] MEDS: Acetaminophen 325 MG TABLET 650 MG PO ×2 (15:26→21:25)
--- NOTE | 2022-02-26 18:27 | PM.PNNEP ---
Subjective Subjective Date of Service: 02/27/22 Interval history: Seen and exmaned, events noted Physical Exam Vital Signs: Vital Signs: Last Vital Signs Temp 97.2 F 02/26/22 23:42 Pulse 101 H 02/26/22 23:42 Resp 16 02/26/22 23:42 BP 111/59 L 02/26/22 23:42 Pulse Ox 98 02/26/22 23:42 O2 Del Method 02/26/22 23:42 BMI result Body Mass Index 23.1 Objective Data Labs CBC & Chem 7: 02/25/22 04:22 02/26/22 06:00 Labs: Laboratory Results - last 24 hr 02/26/22 06:00 Sodium 130 L Potassium 4.6 Chloride 97 Carbon Dioxide 20 L Anion Gap 18 BUN 16 Creatinine 0.61 Estim Creat Clear Calc 139.4 Estimated GFR > 60 Random Glucose 84 Calcium 9.0 Procedures Date of Service Date of Service: 02/26/22 Assessment & Plan Assessment and plan (1) Seizure: Status: Acute (2) Hyponatremia: Status: Acute Plan Euvolemic HypoNa recurrent prob that was being managed with combination of fludi rest and UREA--the latter was d/c as outpt Suspect tegetretol is likely culprit for SIADH Sna 130 this am on combination of PO fluid rest and Urea It appears that his HypoNa is controllable on the UREa and he was not getting it as outpt REC:cont UREA 15 gm bid and cont PO fluid rstriction; cont to track SNa to mke sure it does not incr too fast nor decr Time Spent With Patient Time: Total time spent is greater than 50% in coordination of care (as documented) at patient's floor/unit and/or counseling patient: Progress Note: Quality Stroke Does the patient have a stroke diagnosis?: No
[2022-02-26] MEDS: Enoxaparin Sodium 40 MG/0.4 ML SYRINGE SUBCUT (18:39)
[2022-02-27] VITALS (8 sets, daily range): BP systolic 105–182; BP diastolic 66–117; PULSE 81–108; RESP 15–22; TEMP 36–36.6; O2SAT 94–100
[2022-02-27 06:33] LABS: Sodium 137 mmol/L (135-145)
[2022-02-27] MEDS: Midazolam HCl/PF 2 MG/2 ML VIAL IVPUSH ×2 (07:54→09:19)
--- NOTE | 2022-02-27 08:01 | PC.NURSE ---
Addendum entered by Pierre Sewell RN 02/27/22 08:07: PT asleep, RR 16 Original Note: Patient noted by CNAs to have seizure symptoms in bathroom. This nurse alerted MD who ordered PRN versed 2mg IV, administered. Pt is now asleep in bed.
[2022-02-27] MEDS: 0.9 % Sodium Chloride Flush 3 ML SYRINGE IVFLUSH ×3 (09:19→20:30)
[2022-02-27] MEDS: levETIRAcetam in NaCl (iso-os) 1,000 MG/100 ML PIGGYBACK 400 MG IV (09:54)
[2022-02-27] MEDS: Valproic Acid (as Sodium Salt) 500 MG in Dextrose 5 % 50 ML 55 MG IV ×3 (10:20→20:30)
[2022-02-27] MEDS: Midazolam HCl/PF 2 MG/2 ML VIAL 4 MG IVPUSH (10:57)
--- NOTE | 2022-02-27 11:19 | P.PNIM_ITS ---
Subjective Subjective Date of Service: 02/27/22 Interval History: This AM, sodium level is 137 Pt had witnessed grand mal sz in bathroom around 7:45am lasting 30 sec Afterwards was briefly postictal then became extremely labile, kicking, hitting himself on the head, and stating that he did not feel well Subsequently had a total of 7 witnessed seizures involving altered LOC/grimacing/arching, each lasting 5-10sec, with full recovery of consciousness between. I placed a Neurology consult. He was given 2 mg IV midazolam twice, then 1 g IV levetiracetam, then 500 mg IV valproate. [He had not yet received his morning PO meds]. Due to ongoing seizures, he was given 4 mg of IV midazolam. I got in touch with the neurologist, and he recommends transfer to the ICU for status epilepticus. Review of Systems Review of Systems: Yes all other systems are reviewed and are negative Physical Exam Vital Signs: Vital Signs: Last Vital Signs Temp 96.8 F 02/27/22 07:27 Pulse 108 H 02/27/22 07:27 Resp 18 02/27/22 07:27 BP 160/117 H 02/27/22 07:27 Pulse Ox 100 02/27/22 07:27 O2 Del Method 02/27/22 07:27 BMI result Body Mass Index 23.1 Gen: labile mood HEENT: sclera anicteric, moist mucus membranes Neck: supple Lungs: clear to auscultation bilaterally Heart: regular rate and rhythm, no murmurs Abd: soft, non-tender, non-distended Ext: no edema Skin: warm/well-perfused Neuro: alert, no focal weakness Psych: extremely labile mood Objective Data Active Medications Acetaminophen (Acetaminophen 325 Mg Tablet) 650 mg PO Q6H PRN PRN Reason: Pain, Mild (Pain Scale 1-3) Last Admin: 02/26/22 21:25 Dose: 650 mg Documented By: LUCAS Calcium Carbonate (Calcium Carbonate 500 Mg Tablet) 1,000 mg PO DAILY [facility] Last Admin: 02/26/22 09:28 Dose: 1,000 mg Documented By: LUBNA Carbamazepine (Carbamazepine Er 200 Mg Tab.Er.12h) 400 mg PO BID [facility] Last Admin: 02/26/22 20:13 Dose: 400 mg Documented By: LUCAS Clonazepam (Clonazepam 0.5 Mg Tablet) 0.5 mg PO BID@1600,2000 [facility] Last Admin: 02/26/22 20:13 Dose: 0.5 mg Documented By: LUCAS Clonazepam (Clonazepam 1 Mg Tablet) 1 mg PO DAILY [facility] Last Admin: 02/26/22 09:30 Dose: 1 mg Documented By: LUBNA Clonidine HCl (Clonidine Hcl 0.1 Mg Tablet) 0.1 mg PO DAILY PRN; Protocol PRN Reason: AGITATION,AGGRESSIVENESS Divalproex Sodium (Divalproex Sodium 500 Mg Tablet.Dr) 1,000 mg PO BID [facility] Last Admin: 02/26/22 20:13 Dose: 1,000 mg Documented By: LUCAS Docusate Sodium (Docusate Sodium 100 Mg Capsule) 100 mg PO BID [facility] Last Admin: 02/26/22 20:13 Dose: 100 mg Documented By: LUCAS Enoxaparin Sodium (Enoxaparin Sodium 40 Mg/0.4 Ml Syringe) 40 mg SUBCUT Q24H [facility] Last Admin: 02/26/22 18:39 Dose: 40 mg Documented By: LUBNA Valproic Acid 500 mg/ Dextrose 55 mls @ 55 mls/hr IV ONCE [facility] Last Admin: 02/27/22 10:20 Dose: 55 mls/hr Documented By: LUBNA Levetiracetam (Levetiracetam 1,000 Mg Tablet) 1,000 mg PO BID [facility] Last Admin: 02/26/22 20:12 Dose: 1,000 mg Documented By: LUCAS Loratadine (Loratadine 10 Mg Tablet) 10 mg PO DAILY PRN PRN Reason: post nasal drip Lorazepam (Lorazepam 1 Mg Tablet) 2 mg PO TID PRN PRN Reason: Seizures Multivitamins/Vitamin C (Multivitamin Tablet) 1 tab PO DAILY [facility] Last Admin: 02/26/22 09:29 Dose: 1 tab Documented By: LUBNA Non-Formulary Medication (Diclofenac Sodium) 1 gm TOPICAL QID PRN PRN Reason: Pain (Scale Score 4-6) Ondansetron HCl (Ondansetron Hcl 4 Mg/2 Ml Vial) 4 mg IVPUSH Q8H PRN PRN Reason: Nausea and Vomiting Pharmacy Consult (Consult Rx Perform Med Rec) 1 each MISCELLANE ONCE PRN PRN Reason: Consult order Risperidone (Risperidone 0.5 Mg Tablet) 0.5 mg PO BID [facility] Last Admin: 02/26/22 20:13 Dose: 0.5 mg Documented By: LUCAS Sodium Chloride (0.9 % Sodium Chloride Flush 3 Ml Syringe) 3 ml IVFLUSH QSHIFT [facility] Last Admin: 02/27/22 09:19 Dose: 3 ml Documented By: LUBNA Vitamin D (Cholecalciferol (Vitamin D3) 25 Mcg Tablet) 100 mcg PO DAILY [facility] Last Admin: 02/26/22 09:29 Dose: 100 mcg Documented By: LUBNA Labs CBC & Chem 7: 02/25/22 04:22 02/27/22 05:22 Assessment and Plan (1) Seizure: Status: Acute (2) Hyponatremia: Status: Acute Plan 46yo M with hx anoxic brain injury, cognitive delay, longstanding seizure disorder since childhood [on carbamazepine and valproate since childhood; started levetiracetam approximately 2 months ago at [facility]] admitted with recurrent seizure initially thought to be related to hypoNa lowering seizure threshold, but now with status epilepticus despite normalization of Na # status epilepticus - got total 8 mg IV midazolam, 1000 mg IV levetiracetam, 500 mg IV valproate this AM; transfer to ICU for further monitoring and IV antiepileptic therapy - usual home medications are divalproex 1000 mg bid, carbamazepine 400 mg bid, clonazepam 1 mg qam + 0.5 mg bid @1600 + 2000, plus lorazepam 2 mg tid prn breakthrough seizures # hyponatremia - 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; resolved with fluid restriction to 1000 mL/d and urea 15 g bid [pt was not getting urea at the residential home where he lives]; per Nephro, d/c urea - will need periodic outpatient Na monitoring as well as Nephrology follow-up with Dr Lujan's practice # cognitive delay/behavioral disturbance - continue chronic medications [risperidone, clonidine] # VTE ppx: LMWH In my clinical judgment, the patient requires continued hospitalization for the following reasons: status epilepticus Quality Stroke Does the patient have a stroke diagnosis?: No VTE Prior VTE?: No VTE Risk Level:: Medical - moderate - high VTE Device Contraindication: Treatment Not Indicated VTE Drug Contraindication: N/A - Med Ordered
--- NOTE | 2022-02-27 11:20 | PM.NEUROCN ---
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 In young age he was on phenobarbital for seizure control and many years later it was changed to Depakote and carbamazepine. According to his father who was on his bedside, his seizures were never controlled. He was following Dr. Rice at [facility] who into do small dose of Keppra recently. Usually he would go to [facility] but for some reason he was here in this hospital with breakthrough seizure. His seizure involved generalized body stiffening and shaking neck extension eyes rolled over morning lasting for few seconds followed by lethargy and confusion. I witnessed 1 of the spell while on his bedside. He has never been intubated for seizures. Review of Systems Review of Systems: Review of system could not be done with [facility] Past Medical History Medical History Anxiety disorder, unspecified Intellectual disability Seizure disorder Family History Family History Other No family history of coronary artery disease Surgical History Surgical History No pertinent past surgical history Social History Social History Household Members: Other Household Members Other:: group homr Housing: Other Housing Other:: senior care Alcohol intake: never Patient Tobacco Use Status: Never used Tobacco e-Cigarette/Vaping Use: Never Used Advance Directives Date on File: 02/06/22 service: No Current occupational status: disabled Meds Allergies Allergy/AdvReac Type Severity Reaction Status Date / Time No Known Allergies Allergy Verified 12/31/21 15:26 [No Known Allergies*] Active Medications: Current Medications Acetaminophen (Acetaminophen 325 Mg Tablet) 650 mg PO Q6H PRN PRN Reason: Pain, Mild (Pain Scale 1-3) Last Admin: 02/26/22 21:25 Dose: 650 mg Calcium Carbonate (Calcium Carbonate 500 Mg Tablet) 1,000 mg PO DAILY [facility] Last Admin: 02/26/22 09:28 Dose: 1,000 mg Carbamazepine (Carbamazepine Er 200 Mg Tab.Er.12h) 400 mg PO BID [facility] Last Admin: 02/26/22 20:13 Dose: 400 mg Clonazepam (Clonazepam 0.5 Mg Tablet) 0.5 mg PO BID@1600,2000 [facility] Last Admin: 02/26/22 20:13 Dose: 0.5 mg Clonazepam (Clonazepam 1 Mg Tablet) 1 mg PO DAILY [facility] Last Admin: 02/26/22 09:30 Dose: 1 mg Clonidine HCl (Clonidine Hcl 0.1 Mg Tablet) 0.1 mg PO DAILY PRN; Protocol PRN Reason: AGITATION,AGGRESSIVENESS Divalproex Sodium (Divalproex Sodium 500 Mg Tablet.Dr) 1,000 mg PO BID [facility] Last Admin: 02/26/22 20:13 Dose: 1,000 mg Docusate Sodium (Docusate Sodium 100 Mg Capsule) 100 mg PO BID [facility] Last Admin: 02/26/22 20:13 Dose: 100 mg Enoxaparin Sodium (Enoxaparin Sodium 40 Mg/0.4 Ml Syringe) 40 mg SUBCUT Q24H [facility] Last Admin: 02/26/22 18:39 Dose: 40 mg Valproic Acid 500 mg/ Dextrose 55 mls @ 55 mls/hr IV ONCE [facility] Last Admin: 02/27/22 10:20 Dose: 55 mls/hr Levetiracetam (Levetiracetam 1,000 Mg Tablet) 1,000 mg PO BID [facility] Last Admin: 02/26/22 20:12 Dose: 1,000 mg Loratadine (Loratadine 10 Mg Tablet) 10 mg PO DAILY PRN PRN Reason: post nasal drip Lorazepam (Lorazepam 1 Mg Tablet) 2 mg PO TID PRN PRN Reason: Seizures Multivitamins/Vitamin C (Multivitamin Tablet) 1 tab PO DAILY [facility] Last Admin: 02/26/22 09:29 Dose: 1 tab Non-Formulary Medication (Diclofenac Sodium) 1 gm TOPICAL QID PRN PRN Reason: Pain (Scale Score 4-6) Ondansetron HCl (Ondansetron Hcl 4 Mg/2 Ml Vial) 4 mg IVPUSH Q8H PRN PRN Reason: Nausea and Vomiting Pharmacy Consult (Consult Rx Perform Med Rec) 1 each MISCELLANE ONCE PRN PRN Reason: Consult order Risperidone (Risperidone 0.5 Mg Tablet) 0.5 mg PO BID [facility] Last Admin: 02/26/22 20:13 Dose: 0.5 mg Sodium Chloride (0.9 % Sodium Chloride Flush 3 Ml Syringe) 3 ml IVFLUSH QSHIFT [facility] Last Admin: 02/27/22 09:19 Dose: 3 ml Vitamin D (Cholecalciferol (Vitamin D3) 25 Mcg Tablet) 100 mcg PO DAILY [facility] Last Admin: 02/26/22 09:29 Dose: 100 mcg Home Medications Medication Instructions Recorded Confirmed Last Taken Type calcium carbonate 200 mg calcium 1,000 mg PO DAILY 12/31/21 02/24/22 02/23/22 History (500 mg) chewable tablet (Juan-Gest Antacid) carbamazepine 400 mg 1 tab PO BID 12/31/21 02/24/22 02/23/22 History tablet,extended release,12 hr cetirizine 10 mg tablet (Zyrtec) 10 mg PO DAILY PRN post nasal drip 12/31/21 02/24/22 02/23/22 History cholecalciferol (vitamin D3) 50 100 mcg PO DAILY 12/31/21 02/24/22 02/23/22 History mcg (2,000 unit) tablet (Vitamin D3) clonazepam 0.5 mg tablet 0.5 mg PO BID@1600,2000 12/31/21 02/24/22 02/23/22 History clonazepam 0.5 mg tablet 1 mg PO DAILY 12/31/21 02/24/22 02/23/22 History clonidine HCl 0.1 mg tablet 1 tab PO DAILY PRN 12/31/21 02/24/22 02/23/22 History AGITATION,AGGRESSIVENESS diclofenac sodium 1 % topical gel 1 g topical QID PRN Pain (Scale 12/31/21 02/24/22 02/23/22 History Score 4-6) divalproex 500 mg tablet,delayed 2 tab PO BID 12/31/21 02/24/22 02/23/22 History release docusate sodium 100 mg capsule 100 mg PO BID 12/31/21 02/24/22 02/23/22 History (Colace) levetiracetam 1,000 mg tablet 1 tab PO BID 12/31/21 02/24/22 02/23/22 History lorazepam 2 mg tablet 1 tab PO TID PRN Seizures 12/31/21 02/24/22 02/23/22 History multivitamin 1 tab PO DAILY 12/31/21 02/24/22 02/23/22 History omega 5-[id number]-fish oil 1,000 mg 1 cap PO DAILY 12/31/21 02/24/22 02/23/22 History (120 mg-180 mg) capsule (Fish Oil) risperidone 0.5 mg tablet 1 tab PO BID 12/31/21 02/24/22 02/23/22 History Physical Exam Vital Signs: Vital Signs: Last Vital Signs Temp 96.8 F 02/27/22 07:27 Pulse 108 H 02/27/22 07:27 Resp 18 02/27/22 07:27 BP 160/117 H 02/27/22 07:27 Pulse Ox 100 02/27/22 07:27 O2 Del Method 02/27/22 07:27 BMI result Body Mass Index 23.1 Neuro: Other: Limited exam as he was physically restrained when I arrived with his father holding his left side. He was resisting and stating that he could not take it anymore. He wanted physical restraints off when he went in to generalized convulsion. He was moving his arms or legs. Face seemed symmetrical but close examination was not done. Spontaneity and fluency of speech were okay. Comprehension seem to be okay per Results Labs CBC & Chem 7: 02/25/22 04:22 02/27/22 05:22 Labs: BMP 02/27/22 05:22 Sodium [address] revealed left pablo cerebral atrophy. 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 His seizures were generalized type and according to his father were never completely controlled. At this time he was on Depakote and carbamazepine. There was no indication of any brain infection. Depakote level was 68 in carbamazepine 7+. At this time my recommendations are as follows, which I discussed with his father. 1. Versed does that was being given on his bedside 2. Transfer him to ICU 3. Discontinue carbamazepine 4. Continue valproic acid 500 mg 4 times a day and check another level tomorrow 5. Levetiracetam 1 g IV if not given before. After that continue levetiracetam 1000 mg twice a day 6. Consider intubation to protect his airway or if he would continue to have seizure 7. Thiamine, folate, and B complex supplementation 8. Once he was more stable, obtain EEG to rule out any subclinical seizures but that was not urgently needed 9. If seizures would not be controlled with valproic acid and levetiracetam, I would had phenobarbital 10 milligram/kg. Procedures Date of Service Date of Service: 02/27/22
[2022-02-27 12:02] LABS: Alanine Aminotransferase 14 U/L (0-40); Albumin Level 4.8 g/dL (3.5-5.0); Alkaline Phosphatase 39 U/L (39-117); Anion Gap 15 (12-20); Aspartate Amino Transferase 15 U/L (5-37); Bilirubin Total 0.3 mg/dL (0.0-1.0); Blood Urea Nitrogen 16 mg/dL (9-16); Calcium 9.8 mg/dL (8.4-10.2); Carbon Dioxide 24 mmol/L (22-29); Chloride 104 mmol/L (96-108); Creatinine Clr Calc Pharmacy 121.5; Estimated Glomerular Filt Rate > 60; Glucose Random 113 mg/dL (60-115); Potassium 4.4 mmol/L (3.3-5.1); Sodium 139 mmol/L (135-145); Total Protein 7.6 g/dL (6.5-8.0)
[2022-02-27 12:44] LABS: Carbamazepine Tegretol 8.8 mcg/mL (5.0-12.0); Valproate 85.7 mcg/mL (50.0-100.0)
[2022-02-27] MEDS: PHENobarbitaL sodium 130 MG/ML VIAL 200 MG IVPUSH (12:55)
[2022-02-27] MEDS: PHENobarbitaL sodium 130 MG/ML VIAL 260 MG IVPUSH ×3 (13:24→14:30)
--- NOTE | 2022-02-27 14:17 | PM.CCPN ---
Subjective Subjective Date of Service: 02/27/22 Interval History: Mr. Anaya is transferred to ICU this afternoon w status epilepticus. 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 At a young age he was on phenobarbital for seizure control and many years later it was changed to Depakote and carbamazepine.? According to his father, his seizures were never controlled.? He was followed by Dr. Rice at [facility] who started him on small dose of Keppra recently.? He also has a history of hyponatremia as well as SIADH and has been on a fluid restriction since discharge on 02/07/2022.? He was on Tegretol, Depakote, and Keppra.? He has never been intubated for seizures. The patient was BIBA to the ED on Feb 24 after a witnessed seizure at home.? No further sz in the ED.? Sodium was 122 on admission.? The sz were thought 2? to the hyponatremia.? The hyponatremia was thought 2? 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.? The patient was fluid restricted to 1000 mL, started on urea 15 g PO bid. This AM, sodium level was 137.? The patient had a witnessed grand mal sz in bathroom around 7:45am lasting 30 sec.? Afterwards was briefly postictal then became extremely labile, kicking, hitting himself on the head, and stating that he did not feel well.? Subsequently had a total of 7 witnessed seizures involving altered LOC/grimacing/arching, each lasting 5-10sec, with full recovery of consciousness between. He was given 2 mg IV midazolam twice, then 1 g IV levetiracetam, then 500 mg IV valproate.? Due to ongoing seizures, he was given 4 mg of IV midazolam.? Dr. Holland saw the patient and witnessed a sz involving generalized body stiffening and shaking neck extension, eyes rolled over, lasting for few seconds followed by lethargy and confusion.? I went up and saw the patient and he was postictal.? I recommended 260 mg phenobarbital, which was given, followed by transfer to the ICU.? We gave the patient another 260 mg dose. On my exam after that, the patient was completely awake and alert, back to his baseline mental status, according to his father.? His baseline mental status seems to be somewhat ?up front?, ?challenging? (I?m not sure how to describe it), but he?s clearly fully awake and alert.? No gross CN neuro deficits.? Comprehension is OK, speech fluency slightly slow, asking questions. We gave him another two doses of 260 mg phenobarbital.? HR 88, BP 130/95, breathing easy, Sat 100% on room air.? Temp 97.8. Note:? The family tells me that he?s fallen at least 8 times in the last month, with head contact.? Last CT was 02/05, which showed NAD. LABORATORY DATA:? Sodium level at 11:00 this morning was 139, BUN/creatinine 16/0.7, valproic acid level was 85, and carbamazepine level was 8.8. 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 His seizures were generalized type and according to his father were never completely controlled. We have implemented Dr. Holland?s recommendations: 1. Discontinue carbamazepine. 2. Continue valproic acid 500 mg 4 times a day and check another level tomorrow. 3. Levetiracetam 1 g IV, then continue levetiracetam 1000 mg po bid 4. Thiamine, folate, and B complex supplementation (we only have B6 and B12; I gave B6). 5. EEG when more stable -- probably Wednesday 6. Phenobarbital 10mg/kg if seizures would not be controlled with valproic acid and levetiracetam.? So far, he?s had 1040 mg.? A level is ordered for the morning. Intubation for airway control has not been necessary (so far). In view of the hx above, I?ve also put him in for a head CT.? Also ordered sport drink (with electrolytes) for him to drink instead of water.? According to Dr. Meyers, Dr. Lujan rec?d to d/c the urea. We'll follow the serum Na. Critical Care Time (minutes): 0 Physical Exam Vital Signs: Vital Signs: Last Vital Signs Temp 96.8 F 02/27/22 07:27 Pulse 101 H 02/27/22 12:00 Resp 18 02/27/22 12:00 BP 182/102 H 02/27/22 12:00 Pulse Ox 100 02/27/22 12:00 O2 Del Method 02/27/22 12:00 BMI result Body Mass Index 23.1 Objective Data Labs CBC & Chem 7: 02/25/22 04:22 02/27/22 11:34 Labs: Laboratory Results - last 24 hr 02/27/22 02/27/22 05:22 11:34 Sodium 137 139 Potassium 4.4 Chloride 104 Carbon Dioxide 24 Anion Gap 15 BUN 16 Creatinine 0.70 Estim Creat Clear Calc 121.5 Estimated GFR > 60 Random Glucose 113 Calcium 9.8 D Total Bilirubin 0.3 AST 15 ALT 14 Alkaline Phosphatase 39 Total Protein 7.6 Albumin 4.8 Valproic Acid 85.7 Carbamazepine 8.8 Quality Stroke Does the patient have a stroke diagnosis?: No VTE Prior VTE?: No VTE Risk Level:: Medical - moderate - high VTE Device Contraindication: Treatment Not Indicated VTE Drug Contraindication: N/A - Med Ordered
--- NOTE | 2022-02-27 14:51 | MHC.CLN ---
NUTRITION PROVIDED GATORADE PER CONVERSATION WITH . 20 FL OZ GATORADE HAS 270 MG SODIUM. KITCHEN ALERTED THAT THAT PATIENT MAY HAVE GATORADE UPON REQUEST. DELIVERED 5 BOTTLES TO ICU.
--- NOTE | 2022-02-27 14:53 | MHC.CM.PN ---
Notified that pt would be transferring to ICU for continued care d/t ongoing seizure activity. Per review of CM notes, pt resides with parents who would be able to transport him home. CM to follow for finalization of d/c plan
--- NOTE | 2022-02-27 14:55 | MHC.CM.PN ---
Notified that pt was transferring to ICU for increased care needs r/t ongoing seizure activity. Per review of EMR, pt resides in a fdc and is supported by family. CM to follow for finalization of d/c needs
--- NOTE | 2022-02-27 15:31 | PC.NURSE ---
Pt noted by CNAs to be behaving usually in bathroom, face turning red. This nurse alerted hospitalist to new seizure activity who came immediately to the room. The patient then had multiple episodes in bed and became physically agitated, striking nurse and [employer] RECLAIM[employer]. Security and nursing supervisor [employer] were alerted. Pt received 2mg versed IV push at 0754 and slept about 5 minutes. Upon waking, he was noted to have more seizure activity. alerted and ordered additional dose of 2mg IV versed at 0919. Pt was calm for just a few minutes and more seizure activity noted. IV keppra (bolus) at 1109 and valproic acid 500mg IV (50ml over an hour) at 1125. Neuro consult performed and recommended that pt transfer to ICU, which occured at 1230, after pt received first dose of 200mg phenobarbitol IV push at 1215. All told, this nurse counted 14 seizures, most lasting 15-30 seconds, often preceded by the patient expressing fear or discomfort.
[2022-02-27] MEDS: Enoxaparin Sodium 40 MG/0.4 ML SYRINGE SUBCUT (17:09)
[2022-02-27] MEDS: Cholecalciferol (Vitamin D3) 25 MCG TABLET 100 MCG PO (17:15)
[2022-02-27] MEDS: clonazePAM 0.5 MG TABLET PO ×2 (17:15→20:30)
[2022-02-27] MEDS: Multivitamin TABLET 1 TAB PO (17:20)
--- NOTE | 2022-02-27 19:33 | P.PNNP_ITS ---
Subjective Subjective Date of Service: 02/27/22 Interval history: Seen and examined, events noted . Physical Exam Vital Signs: Vital Signs: Last Vital Signs Temp 97.8 F 02/27/22 16:00 Pulse 92 02/27/22 19:00 Resp 19 02/27/22 19:00 BP 110/69 02/27/22 19:00 Pulse Ox 96 02/27/22 19:00 O2 Del Method 02/27/22 19:00 BMI result Body Mass Index 23.1 Neuro: Other: Limited exam as he was physically restrained when I arrived with his father holding his left side. He was resisting and stating that he could not take it anymore. He wanted physical restraints off when he went in [facility]. He was moving his arms or legs. Face seemed symmetrical but close examination was not done. Spontaneity and fluency of speech were okay. Comprehension seem to be okay per Objective Data Labs CBC & Chem 7: 02/25/22 04:22 02/27/22 11:34 Labs: Laboratory Results - last 24 hr 02/27/22 02/27/22 05:22 11:34 Sodium 137 139 Potassium 4.4 Chloride 104 Carbon Dioxide 24 Anion Gap 15 BUN 16 Creatinine 0.70 Estim Creat Clear Calc 121.5 Estimated GFR > 60 Random Glucose 113 Calcium 9.8 D Total Bilirubin 0.3 AST 15 ALT 14 Alkaline Phosphatase 39 Total Protein 7.6 Albumin 4.8 Valproic Acid 85.7 Carbamazepine 8.8 Procedures Date of Service Date of Service: 02/27/22 Assessment & Plan Assessment and plan (1) Seizure: Status: Acute (2) Hyponatremia: Status: Acute Plan Recurrent Hyponatremic epsidoes that typically are easily traeted in the hospital suggesting that outpt compliamce is a problem---notes indicate the UREA was not continued as outpt Now several SZ depsit SNaq 137 this am means that the hypoNa is not the culprit for his SZ and Neuro is reassessing his anti-Sz regiment REC: hold Urea for now given SNa 13y and recheck this PM; most likely willneed to r/s Urea in next 24-48 hrs once taking PO better; goal is SNa > 130 Will follow with team Time Spent With Patient Time: Total time spent is greater than 50% in coordination of care (as documented) at patient's floor/unit and/or counseling patient: Progress Note: Quality Stroke Does the patient have a stroke diagnosis?: No
[2022-02-27] MEDS: risperiDONE 0.5 MG TABLET PO (20:30)
[2022-02-27] MEDS: Docusate Sodium 100 MG CAPSULE PO (20:30)
[2022-02-27] MEDS: levETIRAcetam 1,000 MG TABLET 1000 MG PO (20:30)
[2022-02-28] VITALS (13 sets, daily range): BP systolic 92–142; BP diastolic 59–93; PULSE 64–104; RESP 14–20; TEMP 36–36.8; O2SAT 95–100; BMI 23.8
[2022-02-28] MEDS: Valproic Acid (as Sodium Salt) 500 MG in Dextrose 5 % 50 ML 55 MG IV ×4 (04:13→20:42)
[2022-02-28 06:02] LABS: Anion Gap 18 (12-20); Blood Urea Nitrogen 14 mg/dL (9-16); Calcium 8.5 mg/dL (8.4-10.2); Carbon Dioxide 19 mmol/L (22-29); Chloride 104 mmol/L (96-108); Creatinine Clr Calc Pharmacy 149.2; Estimated Glomerular Filt Rate > 60; Glucose Random 93 mg/dL (60-115); Potassium 4.8 mmol/L (3.3-5.1); Sodium 136 mmol/L (135-145)
[2022-02-28] MEDS: Thiamine HCL 100 MG in 0.9 % Sodium Chloride 100 ML 202 MG IV (09:12)
[2022-02-28] MEDS: Pyridoxine HCl (Vitamin B6) 50 MG TABLET PO (09:13)
[2022-02-28] MEDS: Multivitamin TABLET 1 TAB PO (09:13)
[2022-02-28] MEDS: Docusate Sodium 100 MG CAPSULE PO ×2 (09:13→20:42)
[2022-02-28] MEDS: clonazePAM 1 MG TABLET PO (09:14)
[2022-02-28] MEDS: Cholecalciferol (Vitamin D3) 25 MCG TABLET 100 MCG PO (09:15)
[2022-02-28] MEDS: levETIRAcetam 1,000 MG TABLET 1000 MG PO (09:15)
[2022-02-28] MEDS: 0.9 % Sodium Chloride Flush 3 ML SYRINGE IVFLUSH ×3 (09:16→20:43)
[2022-02-28] MEDS: risperiDONE 0.5 MG TABLET PO ×2 (09:16→20:42)
[2022-02-28] MEDS: Urea 15 GM POWDER PO (09:30)
[2022-02-28] MEDS: Acetaminophen 325 MG TABLET 650 MG PO ×2 (09:40→21:28)
[2022-02-28] MEDS: Folic Acid 1 MG in 0.9 % Sodium Chloride 50 ML 100.4 MG IV (09:50)
--- NOTE | 2022-02-28 11:27 | PM.NEUROCN ---
History of Present Illness Data of Consult Service Date: 02/28/22 Primary Care Provider: LOIS Constantino Reason for consult: Seizure disorder 46 years old man who I saw yesterday was status epilepticus has just came out of ICU after his seizures were controlled. He was much more comfortable and talking to kitchen staff and I saw him. His father was there stating that he was doing much better. Review of Systems Review of Systems: No obvious discomfort PMFSH Past Medical History Medical History Anxiety disorder, unspecified Intellectual disability Seizure disorder Family History Family History Other No family history of coronary artery disease Surgical History Surgical History No pertinent past surgical history Social History Social History Household Members: Other Household Members Other:: group homr Housing: Other Housing Other:: jail Alcohol intake: never Patient Tobacco Use Status: Never used Tobacco e-Cigarette/Vaping Use: Never Used Advance Directives Date on File: 02/06/22 service: No Current occupational status: disabled Meds Allergies Allergy/AdvReac Type Severity Reaction Status Date / Time No Known Allergies Allergy Verified 12/31/21 15:26 [No Known Allergies*] Active Medications: Current Medications Acetaminophen (Acetaminophen 325 Mg Tablet) 650 mg PO Q6H PRN PRN Reason: Pain, Mild (Pain Scale 1-3) Last Admin: 02/28/22 09:40 Dose: 650 mg Calcium Carbonate (Calcium Carbonate 500 Mg Tablet) 1,000 mg PO DAILY [facility] Last Admin: 02/28/22 09:14 Dose: 1,000 mg Clonazepam (Clonazepam 0.5 Mg Tablet) 0.5 mg PO BID@1600,2000 [facility] Last Admin: 02/27/22 20:30 Dose: 0.5 mg Clonazepam (Clonazepam 1 Mg Tablet) 1 mg PO DAILY [facility] Last Admin: 02/28/22 09:14 Dose: 1 mg Clonidine HCl (Clonidine Hcl 0.1 Mg Tablet) 0.1 mg PO DAILY PRN; Protocol PRN Reason: AGITATION,AGGRESSIVENESS Docusate Sodium (Docusate Sodium 100 Mg Capsule) 100 mg PO BID [facility] Last Admin: 02/28/22 09:13 Dose: 100 mg Enoxaparin Sodium (Enoxaparin Sodium 40 Mg/0.4 Ml Syringe) 40 mg SUBCUT Q24H [facility] Last Admin: 02/27/22 17:09 Dose: 40 mg Folic Acid (Folic Acid 1 Mg Tablet) 1 mg PO DAILY [facility] Valproic Acid 500 mg/ Dextrose 55 mls @ 55 mls/hr IV Q6H [facility] Last Admin: 02/28/22 10:24 Dose: 55 mls/hr Thiamine HCl 100 mg/ Sodium (Chloride) 101 mls @ 202 mls/hr IV DAILY [facility] Stop: 03/02/22 08:59 Last Infusion: 02/28/22 09:54 Dose: Infused Folic Acid 1 mg/ Sodium (Chloride) 50.2 mls @ 100.4 mls/hr IV DAILY [facility] Stop: 03/02/22 08:59 Last Infusion: 02/28/22 10:24 Dose: Infused Levetiracetam (Levetiracetam 1,000 Mg Tablet) 1,000 mg PO BID [facility] Last Admin: 02/28/22 09:15 Dose: 1,000 mg Loratadine (Loratadine 10 Mg Tablet) 10 mg PO DAILY PRN PRN Reason: post nasal drip Lorazepam (Lorazepam 1 Mg Tablet) 2 mg PO TID PRN PRN Reason: Seizures Multivitamins/Vitamin C (Multivitamin Tablet) 1 tab PO DAILY [facility] Last Admin: 02/28/22 09:13 Dose: 1 tab Non-Formulary Medication (Diclofenac Sodium) 1 gm TOPICAL QID PRN PRN Reason: Pain (Scale Score 4-6) Ondansetron HCl (Ondansetron Hcl 4 Mg/2 Ml Vial) 4 mg IVPUSH Q8H PRN PRN Reason: Nausea and Vomiting Pharmacy Consult (Consult Rx Perform Med Rec) 1 each MISCELLANE ONCE PRN PRN Reason: Consult order Phenobarbital Sodium (Phenobarbital Sodium 130 Mg/Ml Vial) 260 mg IVPUSH Q15M PRN PRN Reason: Seizures Last Admin: 02/27/22 14:30 Dose: 260 mg Pyridoxine HCl (Pyridoxine Hcl (Vitamin B6) 50 Mg Tablet) 50 mg PO DAILY [facility] Last Admin: 02/28/22 09:13 Dose: 50 mg Risperidone (Risperidone 0.5 Mg Tablet) 0.5 mg PO BID [facility] Last Admin: 02/28/22 09:16 Dose: 0.5 mg Sodium Chloride (0.9 % Sodium Chloride Flush 3 Ml Syringe) 3 ml IVFLUSH QSHIFT [facility] Last Admin: 02/28/22 09:16 Dose: 3 ml Thiamine HCl (Thiamine Hcl 100 Mg Tablet) 100 mg PO DAILY [facility] Urea (Urea 15 Gm Powder) 15 gm PO BID [facility] Last Admin: 02/28/22 09:30 Dose: 15 gm Vitamin D (Cholecalciferol (Vitamin D3) 25 Mcg Tablet) 100 mcg PO DAILY [facility] Last Admin: 02/28/22 09:15 Dose: 100 mcg Home Medications Medication Instructions Recorded Confirmed Last Taken Type calcium carbonate 200 mg calcium 1,000 mg PO DAILY 12/31/21 02/24/22 02/23/22 History (500 mg) chewable tablet (Juan-Gest Antacid) carbamazepine 400 mg 1 tab PO BID 12/31/21 02/24/22 02/23/22 History tablet,extended release,12 hr cetirizine 10 mg tablet (Zyrtec) 10 mg PO DAILY PRN post nasal drip 12/31/21 02/24/22 02/23/22 History cholecalciferol (vitamin D3) 50 100 mcg PO DAILY 12/31/21 02/24/22 02/23/22 History mcg (2,000 unit) tablet (Vitamin D3) clonazepam 0.5 mg tablet 0.5 mg PO BID@1600,2000 12/31/21 02/24/22 02/23/22 History clonazepam 0.5 mg tablet 1 mg PO DAILY 12/31/21 02/24/22 02/23/22 History clonidine HCl 0.1 mg tablet 1 tab PO DAILY PRN 12/31/21 02/24/22 02/23/22 History AGITATION,AGGRESSIVENESS diclofenac sodium 1 % topical gel 1 g topical QID PRN Pain (Scale 12/31/21 02/24/22 02/23/22 History Score 4-6) divalproex 500 mg tablet,delayed 2 tab PO BID 12/31/21 02/24/22 02/23/22 History release docusate sodium 100 mg capsule 100 mg PO BID 12/31/21 02/24/22 02/23/22 History (Colace) levetiracetam 1,000 mg tablet 1 tab PO BID 12/31/21 02/24/22 02/23/22 History lorazepam 2 mg tablet 1 tab PO TID PRN Seizures 12/31/21 02/24/22 02/23/22 History multivitamin 1 tab PO DAILY 12/31/21 02/24/22 02/23/22 History omega 0-[id number]-dwp-fish oil 1,000 mg 1 cap PO DAILY 12/31/21 02/24/22 02/23/22 History (120 mg-180 mg) capsule (Fish Oil) risperidone 0.5 mg tablet 1 tab PO BID 12/31/21 02/24/22 02/23/22 History Physical Exam Vital Signs: Vital Signs: Last Vital Signs Temp 97.6 F 02/28/22 11:00 Pulse 104 H 02/28/22 11:00 Resp 16 02/28/22 11:00 BP 142/78 H 02/28/22 11:00 Pulse Ox 99 02/28/22 11:00 O2 Del Method 02/28/22 11:00 BMI result Body Mass Index 23.8 Neuro: Other: Alert and awake with normal spontaneity of speech fluency comprehension and somewhat aggressive affect. No obvious focal facial weakness or arm weakness. Results Labs CBC & Chem 7: 02/25/22 04:22 02/28/22 05:21 Labs: BMP 02/27/22 02/28/22 11:34 05:21 Sodium 139 136 Potassium 4.4 4.8 Chloride 104 104 Carbon Dioxide 24 19 L BUN 16 14 Creatinine 0.70 0.57 Calcium 9.8 D 8.5 D Liver Function 02/27/22 Range/Units 11:34 Total Bilirubin 0.3 (0.0-1.0) mg/dL AST 15 (5-37) U/L ALT 14 (0-40) U/L Alkaline Phosphatase 39 (39-117) U/L Albumin 4.8 (3.5-5.0) g/dL Assessment and Plan (1) Seizure: Status: Acute Clinically he is much better. My recommendation is to follow through with the plan I put down and my last note. Procedures Date of Service Date of Service: 02/28/22
--- NOTE | 2022-02-28 12:05 | P.PNIM_ITS ---
Subjective Subjective Date of Service: 02/28/22 Interval History: no seizures since arriving in ICU yesterday and getting loaded with phenobarbital, total 1040 mg feels much better Na this AM 136 fluid restriction lifted, much to his delight Review of Systems Review of Systems: Yes all other systems are reviewed and are negative Physical Exam Vital Signs: Vital Signs: Last Vital Signs Temp 97.6 F 02/28/22 11:00 Pulse 104 H 02/28/22 11:00 Resp 16 02/28/22 11:00 BP 142/78 H 02/28/22 11:00 Pulse Ox 99 02/28/22 11:00 O2 Del Method 02/28/22 11:00 BMI result Body Mass Index 23.8 Gen: in no acute distress HEENT: sclera anicteric, moist mucus membranes Neck: supple Lungs: clear to auscultation bilaterally Heart: regular rate and rhythm, no murmurs Abd: soft, non-tender, non-distended Ext: no edema Skin: warm/well-perfused Neuro: alert and oriented x3, no focal findings Objective Data Active Medications Acetaminophen (Acetaminophen 325 Mg Tablet) 650 mg PO Q6H PRN PRN Reason: Pain, Mild (Pain Scale 1-3) Last Admin: 02/28/22 09:40 Dose: 650 mg Documented By: TERRI Calcium Carbonate (Calcium Carbonate 500 Mg Tablet) 1,000 mg PO DAILY [facility] Last Admin: 02/28/22 09:14 Dose: 1,000 mg Documented By: TERRI Clonazepam (Clonazepam 0.5 Mg Tablet) 0.5 mg PO BID@1600,2000 [facility] Last Admin: 02/27/22 20:30 Dose: 0.5 mg Documented By: ETTA Clonazepam (Clonazepam 1 Mg Tablet) 1 mg PO DAILY [facility] Last Admin: 02/28/22 09:14 Dose: 1 mg Documented By: TERRI Clonidine HCl (Clonidine Hcl 0.1 Mg Tablet) 0.1 mg PO DAILY PRN; Protocol PRN Reason: AGITATION,AGGRESSIVENESS Docusate Sodium (Docusate Sodium 100 Mg Capsule) 100 mg PO BID [facility] Last Admin: 02/28/22 09:13 Dose: 100 mg Documented By: TERRI Enoxaparin Sodium (Enoxaparin Sodium 40 Mg/0.4 Ml Syringe) 40 mg SUBCUT Q24H [facility] Last Admin: 02/27/22 17:09 Dose: 40 mg Documented By: ZOYA Folic Acid (Folic Acid 1 Mg Tablet) 1 mg PO DAILY [facility] Valproic Acid 500 mg/ Dextrose 55 mls @ 55 mls/hr IV Q6H [facility] Last Infusion: 02/28/22 11:36 Dose: 0 mls/hr Documented By: CORRINE Thiamine HCl 100 mg/ Sodium (Chloride) 101 mls @ 202 mls/hr IV DAILY [facility] Stop: 03/02/22 08:59 Last Infusion: 02/28/22 09:54 Dose: 0 mls/hr Documented By: TERRI Folic Acid 1 mg/ Sodium (Chloride) 50.2 mls @ 100.4 mls/hr IV DAILY [facility] Stop: 03/02/22 08:59 Last Infusion: 02/28/22 10:24 Dose: 0 mls/hr Documented By: AKIRA Levetiracetam (Levetiracetam 500 Mg Tablet) 1,500 mg PO BID [facility] Loratadine (Loratadine 10 Mg Tablet) 10 mg PO DAILY PRN PRN Reason: post nasal drip Lorazepam (Lorazepam 1 Mg Tablet) 2 mg PO TID PRN PRN Reason: Seizures Multivitamins/Vitamin C (Multivitamin Tablet) 1 tab PO DAILY [facility] Last Admin: 02/28/22 09:13 Dose: 1 tab Documented By: TERRI Non-Formulary Medication (Diclofenac Sodium) 1 gm TOPICAL QID PRN PRN Reason: Pain (Scale Score 4-6) Ondansetron HCl (Ondansetron Hcl 4 Mg/2 Ml Vial) 4 mg IVPUSH Q8H PRN PRN Reason: Nausea and Vomiting Pharmacy Consult (Consult Rx Perform Med Rec) 1 each MISCELLANE ONCE PRN PRN Reason: Consult order Phenobarbital Sodium (Phenobarbital Sodium 130 Mg/Ml Vial) 260 mg IVPUSH Q15M PRN PRN Reason: Seizures Last Admin: 02/27/22 14:30 Dose: 260 mg Documented By: ZOYA Pyridoxine HCl (Pyridoxine Hcl (Vitamin B6) 50 Mg Tablet) 50 mg PO DAILY [facility] Last Admin: 02/28/22 09:13 Dose: 50 mg Documented By: TERRI Risperidone (Risperidone 0.5 Mg Tablet) 0.5 mg PO BID [facility] Last Admin: 02/28/22 09:16 Dose: 0.5 mg Documented By: TERRI Sodium Chloride (0.9 % Sodium Chloride Flush 3 Ml Syringe) 3 ml IVFLUSH QSHIFT [facility] Last Admin: 02/28/22 09:16 Dose: 3 ml Documented By: TERRI Thiamine HCl (Thiamine Hcl 100 Mg Tablet) 100 mg PO DAILY [facility] Vitamin D (Cholecalciferol (Vitamin D3) 25 Mcg Tablet) 100 mcg PO DAILY [facility] Last Admin: 02/28/22 09:15 Dose: 100 mcg Documented By: TERRI Labs CBC & Chem 7: 02/25/22 04:22 02/28/22 05:21 Labs: Laboratory Results - last 24 hr 02/27/22 02/28/22 02/28/22 11:34 05:21 05:21 Anion Gap 18 Estim Creat Clear Calc 149.2 Estimated GFR > 60 Random Glucose 93 Calcium 8.5 D Valproic Acid 85.7 Carbamazepine 8.8 Phenobarbital 24.8 Assessment and Plan (1) Seizure: Status: Acute (2) Hyponatremia: Status: Acute Plan hospital d#5 46yo M with hx anoxic brain injury, cognitive delay, longstanding seizure disorder since childhood [on carbamazepine and valproate since childhood; started levetiracetam approximately 2 months ago at [facility]] admitted with recurrent seizure initially thought to be related to hypoNa lowering seizure threshold transferred to ICU 02/27/22 due to status epilepticus despite normalization of Na was loaded with phenobarbital and status has resolved stepped down to [facility] 02/28/22 # seizure disorder - status epilepticus resolved s/p phenobarbital load - per Neurology, continue valproate 500 mg q6h [total 2g/d, his prior dose] and increase levetiracetam to 1500 mg bid; discontinue carbamazepine due to contribution to hypoNa - continue clonazepam 1 mg qam + 0.5 mg bid @1600 + 2000, plus lorazepam 2 mg tid prn breakthrough seizures - continue thiamine, pyridoxine, and folate supplementation - will need f/u with Dr Tamayo as outpt # hyponatremia - 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; resolved with fluid restriction to 1000 mL/d and urea 15 g bid [pt was not getting urea at the residential home where he lives] - now that carbamazepine is being discontinued, we have lifted fluid restriction and will also discontinue urea; monitor Na daily for the next few days # cognitive delay/behavioral disturbance - continue chronic medications [risperidone, clonidine] # VTE ppx: LMWH In my clinical judgment, the patient requires continued hospitalization for the following reasons: status epilepticus Quality Stroke Does the patient have a stroke diagnosis?: No VTE Prior VTE?: No VTE Risk Level:: Medical - moderate - high VTE Device Contraindication: Treatment Not Indicated VTE Drug Contraindication: N/A - Med Ordered
[2022-02-28] MEDS: Enoxaparin Sodium 40 MG/0.4 ML SYRINGE SUBCUT (16:27)
[2022-02-28] MEDS: clonazePAM 0.5 MG TABLET PO ×2 (16:27→20:42)
--- NOTE | 2022-02-28 16:46 | PM.PNNEP ---
Subjective Subjective Date of Service: 02/28/22 Interval history: Seen and examned, events noted Physical Exam Vital Signs: Vital Signs: Last Vital Signs Temp 98.3 F 02/28/22 15:00 Pulse 85 02/28/22 15:00 Resp 18 02/28/22 15:00 BP 129/87 02/28/22 15:00 Pulse Ox 98 02/28/22 15:00 O2 Del Method 02/28/22 15:00 BMI result Body Mass Index 23.8 Neuro: Other: Limited exam as he was physically restrained when I arrived with his father holding his left side. He was resisting and stating that he could not take it anymore. He wanted physical restraints off when he went in to generalized convulsion. He was moving his arms or legs. Face seemed symmetrical but close examination was not done. Spontaneity and fluency of speech were okay. Comprehension seem to be okay per Objective Data Labs CBC & Chem 7: 02/25/22 04:22 02/28/22 05:21 Labs: Laboratory Results - last 24 hr 02/28/22 02/28/22 05:21 05:21 Sodium 136 Potassium 4.8 Chloride 104 Carbon Dioxide 19 L Anion Gap 18 BUN 14 Creatinine 0.57 Estim Creat Clear Calc 149.2 Estimated GFR > 60 Random Glucose 93 Calcium 8.5 D Phenobarbital 24.8 Procedures Date of Service Date of Service: 02/28/22 Assessment & Plan Assessment and plan (1) Seizure: Status: Acute (2) Hyponatremia: Status: Acute Plan Recurrent Hyponatremic epsidoes that typically are easily traeted in the hospital suggesting that outpt compliamce is a problem---notes indicate the UREA was not continued as outpt Now several SZ depsit SNaq 137 this am means that the hypoNa is not the culprit for his SZ and Neuro is reassessing his anti-Sz regiment REC: will track Sna and r/s Urea if Sna drops again while off tegretol; most likely willneed to r/s Urea in next 24-48 hrs once taking PO better; goal is SNa > 130 Will follow with team Time Spent With Patient Time: Total time spent is greater than 50% in coordination of care (as documented) at patient's floor/unit and/or counseling patient: Progress Note: Quality Stroke Does the patient have a stroke diagnosis?: No
--- NOTE | 2022-02-28 16:49 | PC.NURSE ---
Transferred from ICU via bed. Alert and oriented x3, denies pain, VSS, afebrile. No acute resp. distress noted. Skin is intact. Seizure precautions maintained. Father at bedside. Will continue to monitor and treat per plan of care.
[2022-02-28] MEDS: levETIRAcetam 500 MG TABLET 1500 MG PO (20:42)
[2022-03-01] MEDS: Valproic Acid (as Sodium Salt) 500 MG in Dextrose 5 % 50 ML 55 MG IV (03:32)
[2022-03-01 03:33] VITALS: BP 121/85; PULSE 70; RESP 16; TEMP 36.1; O2SAT 97
[2022-03-01 07:20] VITALS: BP 113/74; PULSE 68; RESP 20; TEMP 36; O2SAT 95
[2022-03-01 07:30] LABS: Sodium 136 mmol/L (135-145)
[2022-03-01] MEDS: Cholecalciferol (Vitamin D3) 25 MCG TABLET 100 MCG PO (09:11)
[2022-03-01] MEDS: risperiDONE 0.5 MG TABLET PO ×2 (09:12→20:46)
[2022-03-01] MEDS: Multivitamin TABLET 1 TAB PO (09:12)
[2022-03-01] MEDS: levETIRAcetam 500 MG TABLET 1500 MG PO ×2 (09:12→20:47)
[2022-03-01] MEDS: Docusate Sodium 100 MG CAPSULE PO ×2 (09:12→20:47)
[2022-03-01] MEDS: 0.9 % Sodium Chloride Flush 3 ML SYRINGE IVFLUSH ×4 (09:12→20:51)
[2022-03-01] MEDS: clonazePAM 1 MG TABLET PO (09:12)
[2022-03-01] MEDS: Acetaminophen 325 MG TABLET 650 MG PO ×2 (09:13→23:24)
[2022-03-01] MEDS: Pyridoxine HCl (Vitamin B6) 50 MG TABLET PO (09:13)
[2022-03-01] MEDS: Thiamine HCL 100 MG in 0.9 % Sodium Chloride 100 ML IV (09:18)
--- NOTE | 2022-03-01 10:01 | P.PNIM_ITS ---
Subjective Subjective Date of Service: 03/01/22 Interval History: downgraded to [facility] yesterday no further seizures Na 136 this AM Review of Systems Review of Systems: Yes all other systems are reviewed and are negative Physical Exam Vital Signs: Vital Signs: Last Vital Signs Temp 96.8 F 03/01/22 07:20 Pulse 68 03/01/22 07:20 Resp 20 03/01/22 07:20 BP 113/74 03/01/22 07:20 Pulse Ox 95 03/01/22 07:20 O2 Del Method 03/01/22 07:20 BMI result Body Mass Index 23.8 Gen: in no acute distress HEENT: sclera anicteric, moist mucus membranes Neck: supple Lungs: clear to auscultation bilaterally Heart: regular rate and rhythm, no murmurs Abd: soft, non-tender, non-distended Ext: no edema Skin: warm/well-perfused Neuro: alert and oriented x3, no focal findings Objective Data Active Medications Acetaminophen (Acetaminophen 325 Mg Tablet) 650 mg PO Q6H PRN PRN Reason: Pain, Mild (Pain Scale 1-3) Last Admin: 03/01/22 09:13 Dose: 650 mg Documented By: CORRINE Calcium Carbonate (Calcium Carbonate 500 Mg Tablet) 1,000 mg PO DAILY [facility] Last Admin: 03/01/22 09:11 Dose: 1,000 mg Documented By: CORRINE Clonazepam (Clonazepam 0.5 Mg Tablet) 0.5 mg PO BID@1600,2000 [facility] Last Admin: 02/28/22 20:42 Dose: 0.5 mg Documented By: ELSA Clonazepam (Clonazepam 1 Mg Tablet) 1 mg PO DAILY [facility] Last Admin: 03/01/22 09:12 Dose: 1 mg Documented By: CORRINE Clonidine HCl (Clonidine Hcl 0.1 Mg Tablet) 0.1 mg PO DAILY PRN; Protocol PRN Reason: AGITATION,AGGRESSIVENESS Docusate Sodium (Docusate Sodium 100 Mg Capsule) 100 mg PO BID [facility] Last Admin: 03/01/22 09:12 Dose: 100 mg Documented By: CORRINE Enoxaparin Sodium (Enoxaparin Sodium 40 Mg/0.4 Ml Syringe) 40 mg SUBCUT Q24H [facility] Last Admin: 02/28/22 16:27 Dose: 40 mg Documented By: CORRINE Folic Acid (Folic Acid 1 Mg Tablet) 1 mg PO DAILY [facility] Valproic Acid 500 mg/ Dextrose 55 mls @ 55 mls/hr IV Q6H [facility] Last Admin: 03/01/22 09:13 Dose: 55 mls/hr Documented By: CORRINE Thiamine HCl 100 mg/ Sodium (Chloride) 101 mls @ 202 mls/hr IV DAILY [facility] Stop: 03/02/22 08:59 Last Admin: 03/01/22 09:18 Dose: 100 mls/hr Documented By: CORRINE Comments: 100mg given Folic Acid 1 mg/ Sodium (Chloride) 50.2 mls @ 100.4 mls/hr IV DAILY [facility] Stop: 03/02/22 08:59 Last Infusion: 02/28/22 10:24 Dose: 0 mls/hr Documented By: AKIRA Levetiracetam (Levetiracetam 500 Mg Tablet) 1,500 mg PO BID [facility] Last Admin: 03/01/22 09:12 Dose: 1,500 mg Documented By: CORRINE Loratadine (Loratadine 10 Mg Tablet) 10 mg PO DAILY PRN PRN Reason: post nasal drip Lorazepam (Lorazepam 1 Mg Tablet) 2 mg PO TID PRN PRN Reason: Seizures Multivitamins/Vitamin C (Multivitamin Tablet) 1 tab PO DAILY [facility] Last Admin: 03/01/22 09:12 Dose: 1 tab Documented By: CORRINE Ondansetron HCl (Ondansetron Hcl 4 Mg/2 Ml Vial) 4 mg IVPUSH Q8H PRN PRN Reason: Nausea and Vomiting Pharmacy Consult (Consult Rx Perform Med Rec) 1 each MISCELLANE ONCE PRN PRN Reason: Consult order Phenobarbital Sodium (Phenobarbital Sodium 130 Mg/Ml Vial) 260 mg IVPUSH Q15M PRN PRN Reason: Seizures Last Admin: 02/27/22 14:30 Dose: 260 mg Documented By: ZOYA Pyridoxine HCl (Pyridoxine Hcl (Vitamin B6) 50 Mg Tablet) 50 mg PO DAILY [facility] Last Admin: 03/01/22 09:13 Dose: 50 mg Documented By: CORRINE Risperidone (Risperidone 0.5 Mg Tablet) 0.5 mg PO BID [facility] Last Admin: 03/01/22 09:12 Dose: 0.5 mg Documented By: CORRINE Sodium Chloride (0.9 % Sodium Chloride Flush 3 Ml Syringe) 3 ml IVFLUSH QSHIFT [facility] Last Admin: 03/01/22 09:12 Dose: 3 ml Documented By: CORRINE Thiamine HCl (Thiamine Hcl 100 Mg Tablet) 100 mg PO DAILY [facility] Vitamin D (Cholecalciferol (Vitamin D3) 25 Mcg Tablet) 100 mcg PO DAILY [facility] Last Admin: 03/01/22 09:11 Dose: 100 mcg Documented By: CORRINE Labs CBC & Chem 7: 02/25/22 04:22 03/01/22 06:26 Assessment and Plan (1) Seizure: Status: Acute (2) Hyponatremia: Status: Acute Plan hospital d#6 46yo M with hx anoxic brain injury, cognitive delay, longstanding seizure disor vivek since childhood [on carbamazepine and valproate since childhood; started levetiracetam approximately 2 months ago at [facility]] admitted with recurrent seizure [7 recent hospitalizations for these] initially thought to be related to hypoNa lowering seizure threshold transferred to ICU 02/27/22 due to status epilepticus despite normalization of Na was loaded with phenobarbital and status epilepticus resolved stepped down to [facility] 02/28/22 # seizure disorder - status epilepticus resolved s/p phenobarbital load - per Neurology, continue valproate 500 mg IV q6h [will change to 1000 mg PO bid today] and increased levetiracetam to 1500 mg bid; discontinue carbamazepined due to contribution to hypoNa - continue clonazepam 1 mg qam + 0.5 mg bid @1600 + 2000, plus lorazepam 2 mg ti d prn breakthrough seizures - continue thiamine, pyridoxine, and folate supplementation but change to PO - will need f/u with Dr Tmaayo, his neurologist, as outpt # hyponatremia - 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; resolved with fluid restriction to 1000 mL/d and urea 15 g bid [pt was not getting urea at the residential home where he lives] - now that carbamazepine is being discontinued, we have lifted fluid restriction and discontinued urea; monitor Na daily for the next 2 days, then periodically as outpt upon discharge # cognitive delay/behavioral disturbance - continue chronic medications [risperidone, clonidine] # VTE ppx: LMWH In my clinical judgment, the patient requires continued hospitalization for the following reasons: status epilepticus, frequent hospitalizations for seizures, sodium monitoring, high risk for re-admission Quality Stroke Does the patient have a stroke diagnosis?: No VTE Prior VTE?: No VTE Risk Level:: Medical - moderate - high VTE Device Contraindication: Treatment Not Indicated VTE Drug Contraindication: N/A - Med Ordered
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
[2022-03-01] MEDS: Divalproex Sodium 500 MG TABLET.DR 1000 MG PO ×2 (10:23→20:47)
[2022-03-01] MEDS: Folic Acid 1 MG in 0.9 % Sodium Chloride 50 ML 100.4 MG IV (10:23)
[2022-03-01 11:15] VITALS: BP 119/76; PULSE 83; RESP 16; TEMP 36.1; O2SAT 99
[2022-03-01 15:13] VITALS: BP 141/82; PULSE 76; RESP 18; TEMP 36.7; O2SAT 98
[2022-03-01] MEDS: Enoxaparin Sodium 40 MG/0.4 ML SYRINGE SUBCUT (16:38)
[2022-03-01] MEDS: clonazePAM 0.5 MG TABLET PO (16:38)
[2022-03-01 19:29] VITALS: BP 138/90; PULSE 83; RESP 18; TEMP 36.7; O2SAT 99
[2022-03-01 23:03] VITALS: BP 135/83; PULSE 80; RESP 18; TEMP 36.4; O2SAT 99
[2022-03-02 06:00] VITALS: BMI 23.8
[2022-03-02 07:55] VITALS: BP 119/80; PULSE 67; RESP 16; TEMP 36.3; O2SAT 99
[2022-03-02] MEDS: Cholecalciferol (Vitamin D3) 25 MCG TABLET 100 MCG PO (07:59)
[2022-03-02] MEDS: Folic Acid 1 MG TABLET PO ×2 (07:59→08:01)
[2022-03-02] MEDS: Divalproex Sodium 500 MG TABLET.DR 1000 MG PO ×2 (07:59→20:06)
[2022-03-02] MEDS: Docusate Sodium 100 MG CAPSULE PO ×2 (08:00→20:06)
[2022-03-02] MEDS: Thiamine HCL 100 MG TABLET PO ×2 (08:00)
[2022-03-02] MEDS: clonazePAM 1 MG TABLET PO (08:00)
[2022-03-02] MEDS: Pyridoxine HCl (Vitamin B6) 50 MG TABLET PO (08:00)
[2022-03-02] MEDS: Multivitamin TABLET 1 TAB PO (08:00)
[2022-03-02] MEDS: levETIRAcetam 500 MG TABLET 1500 MG PO ×2 (08:01→20:06)
[2022-03-02] MEDS: risperiDONE 0.5 MG TABLET PO ×2 (08:01→20:06)
[2022-03-02 08:24] LABS: Sodium 140 mmol/L (135-145)
--- NOTE | 2022-03-02 11:09 | MHC.CM.PN ---
Per ROUNDS discussion, Patient is anticipated to be ready for dc tomorrow, pending Na and PT eval (return to [facility] with [facility] VS STR pending PT eval); CM will follow.
[2022-03-02] MEDS: Acetaminophen 325 MG TABLET 650 MG PO ×2 (11:22→20:08)
[2022-03-02 11:36] VITALS: BP 110/79; PULSE 80; RESP 18; TEMP 36.2; O2SAT 99
--- NOTE | 2022-03-02 13:30 | HO.PM.IMPN ---
Subjective Subjective Date of Service: 03/02/22 Interval History: no acute complaints, dad at bedside concern that he is mostly in bed, and he feels he is cognitively slow not at his baseline. Review of Systems Review of Systems: Yes all other systems are reviewed and are negative Physical Exam Vital Signs: Vital Signs: Last Vital Signs Temp 97.2 F 03/02/22 11:36 Pulse 80 03/02/22 11:36 Resp 18 03/02/22 11:36 BP 110/79 03/02/22 11:36 Pulse Ox 99 03/02/22 11:36 O2 Del Method 03/02/22 11:36 BMI result Body Mass Index 23.8 Const: Other: Gen: in no acute d istress Neck: supp le Lungs: clear to auscultation bila terally Heart: reg ular rate and rhyt hm, no murmurs Abd : soft, non-tender , non-distended Ex t: no edema Skin: warm/well-perfused Neuro: alert and oriented x3, no fo mandi findings ? Objective Data Active Medications Acetaminophen (Acetaminophen 325 Mg Tablet) 650 mg PO Q6H PRN PRN Reason: Pain, Mild (Pain Scale 1-3) Last Admin: 03/02/22 11:22 Dose: 650 mg Documented By: HAROLDO Calcium Carbonate (Calcium Carbonate 500 Mg Tablet) 1,000 mg PO DAILY [facility] Last Admin: 03/02/22 07:59 Dose: 1,000 mg Documented By: HAROLDO Clonidine HCl (Clonidine Hcl 0.1 Mg Tablet) 0.1 mg PO DAILY PRN; Protocol PRN Reason: AGITATION,AGGRESSIVENESS Divalproex Sodium (Divalproex Sodium 500 Mg Tablet.) 1,000 mg PO BID [facility] Last Admin: 03/02/22 07:59 Dose: 1,000 mg Documented By: HAROLDO Docusate Sodium (Docusate Sodium 100 Mg Capsule) 100 mg PO BID [facility] Last Admin: 03/02/22 08:00 Dose: 100 mg Documented By: HAROLDO Enoxaparin Sodium (Enoxaparin Sodium 40 Mg/0.4 Ml Syringe) 40 mg SUBCUT Q24H [facility] Last Admin: 03/01/22 16:38 Dose: 40 mg Documented By: CORRINE Folic Acid (Folic Acid 1 Mg Tablet) 1 mg PO DAILY [facility] Last Admin: 03/02/22 07:59 Dose: 1 mg Documented By: HAROLDO Folic Acid (Folic Acid 1 Mg Tablet) 1 mg PO DAILY [facility] Last Admin: 03/02/22 08:01 Dose: 1 mg Documented By: HAROLDO Levetiracetam (Levetiracetam 500 Mg Tablet) 1,500 mg PO BID [facility] Last Admin: 03/02/22 08:01 Dose: 1,500 mg Documented By: HAROLDO Loratadine (Loratadine 10 Mg Tablet) 10 mg PO DAILY PRN PRN Reason: post nasal drip Multivitamins/Vitamin C (Multivitamin Tablet) 1 tab PO DAILY [facility] Last Admin: 03/02/22 08:00 Dose: 1 tab Documented By: HAROLDO Ondansetron HCl (Ondansetron Hcl 4 Mg/2 Ml Vial) 4 mg IVPUSH Q8H PRN PRN Reason: Nausea and Vomiting Pharmacy Consult (Consult Rx Perform Med Rec) 1 each MISCELLANE ONCE PRN PRN Reason: Consult order Phenobarbital Sodium (Phenobarbital Sodium 130 Mg/Ml Vial) 260 mg IVPUSH Q15M PRN PRN Reason: Seizures Last Admin: 02/27/22 14:30 Dose: 260 mg Documented By: ZOYA Pyridoxine HCl (Pyridoxine Hcl (Vitamin B6) 50 Mg Tablet) 50 mg PO DAILY [facility] Last Admin: 03/02/22 08:00 Dose: 50 mg Documented By: HAROLDO Risperidone (Risperidone 0.5 Mg Tablet) 0.5 mg PO BID [facility] Last Admin: 03/02/22 08:01 Dose: 0.5 mg Documented By: HAROLDO Sodium Chloride (0.9 % Sodium Chloride Flush 3 Ml Syringe) 3 ml IVFLUSH QSHIFT [facility] Last Admin: 03/01/22 20:51 Dose: 3 ml Documented By: CURT Thiamine HCl (Thiamine Hcl 100 Mg Tablet) 100 mg PO DAILY [facility] Last Admin: 03/02/22 08:00 Dose: 100 mg Documented By: HAROLDO Thiamine HCl (Thiamine Hcl 100 Mg Tablet) 100 mg PO DAILY [facility] Last Admin: 03/02/22 08:00 Dose: 100 mg Documented By: HAROLDO Vitamin D (Cholecalciferol (Vitamin D3) 25 Mcg Tablet) 100 mcg PO DAILY [facility] Last Admin: 03/02/22 07:59 Dose: 100 mcg Documented By: HAROLDO Labs CBC & Chem 7: 02/25/22 04:22 03/02/22 08:06 Assessment and Plan (1) Seizure: Status: Acute (2) Hyponatremia: Status: Acute Plan 46yo M with hx anoxic brain injury, cognitive delay, longstanding seizure disorder since childhood [on carbamazepine and valproate since childhood; started levetiracetam approximately 2 months ago at [facility]] admitted with recurrent seizure [7 recent hospitalizations for these] initially thought to be related to hypoNa lowering seizure threshold transferred to ICU 02/27/22 due to status epilepticus despite normalization of Na was loaded with phenobarbital and status epilepticus resolved stepped down to [facility] 02/28/22 # seizure disorder - status epilepticus resolved s/p phenobarbital load - per Neurology, continue valproate 1000 mg PO bid and increased levetiracetam to 1500 mg bid; discontinued carbamazepined due to contribution to hypoNa - continue clonazepam 1 mg qam + 0.5 mg bid @1600 + 2000, plus lorazepam 2 mg tid prn breakthrough seizures - continue thiamine, pyridoxine, and folate supplementation PO - will need f/u with Dr Tamayo, his neurologist, as outpt likely mild cognitive depression could be related to multiple psychiatric medications, will ambulate t.i.d. 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; resolved with fluid restriction to 1000 mL/d and urea 15 g bid [pt was not getting urea at the residential home where he lives] - now that carbamazepine is being discontinued, fluid restriction and urea has been discontinued, sodium 140 today if remains stable [facility] # cognitive delay/behavioral disturbance - continue chronic medications [risperidone, clonidine] # VTE ppx: LMWH In my clinical judgment, the patient requires continued hospitalization for the following reasons: status epilepticus, frequent hospitalizations for seizures, sodium monitoring, high risk for re-admission Quality Stroke Does the patient have a stroke diagnosis?: No VTE Prior VTE?: No VTE Risk Level:: Medical - moderate - high VTE Device Contraindication: Treatment Not Indicated VTE Drug Contraindication: N/A - Med Ordered
[2022-03-02 14:57] VITALS: BP 132/71; PULSE 59; RESP 18; TEMP 36.8; O2SAT 98
[2022-03-02] MEDS: 0.9 % Sodium Chloride Flush 3 ML SYRINGE IVFLUSH ×2 (16:52→20:07)
[2022-03-02] MEDS: Enoxaparin Sodium 40 MG/0.4 ML SYRINGE SUBCUT (17:03)
[2022-03-02 18:59] VITALS: BP 113/69; PULSE 102; RESP 18; TEMP 37.2; O2SAT 99
[2022-03-02 23:44] VITALS: BP 130/79; PULSE 82; RESP 20; TEMP 36.2; O2SAT 98
[2022-03-03] VITALS (7 sets, daily range): BP systolic 92–135; BP diastolic 63–87; PULSE 88–114; RESP 16–20; TEMP 36.3–37; O2SAT 94–100; BMI 23.3
--- NOTE | 2022-03-03 | ECG_ITS ---
Test Reason : svt Blood Pressure : / mmHG Vent. Rate : 088 BPM Atrial Rate : 088 BPM P-R Int : 114 ms QRS Dur : 090 ms QT Int : 344 ms P-R-T Axes : 053 063 072 degrees QTc Int : 416 ms Normal sinus rhythm Normal ECG When compared with ECG of 05-FEB-2022 16:02, No significant change was found Referred By: Sindy Lang Electronically Signed By:KIM MEHTA
--- NOTE | 2022-03-03 02:20 | PC.NURSE ---
Got in report pt had pulled out his IV. Attempted x1 for new placement with no success. Nursing complaint supervisor notified and assisted with new placement, #22 in [facility].
[2022-03-03] MEDS: PHENobarbitaL sodium 130 MG/ML VIAL 260 MG IVPUSH (06:26)
--- NOTE | 2022-03-03 06:31 | MHC.PIE ---
P. Seizure I. HR showed 185 on monitor, walked into pt room and noted to be having active seizure. PROCED TECH stayed with pt, seizure lasted approximately 1 minute. Phenobarbital IVP given per PRN orders. BP after event was 119/69, HR down to 106. Still showing SR on monitor. Dr. Dhaliwal notified. E. No new orders at this time.
[2022-03-03 07:42] LABS: Sodium 136 mmol/L (135-145)
[2022-03-03] MEDS: Cholecalciferol (Vitamin D3) 25 MCG TABLET 100 MCG PO (08:52)
[2022-03-03] MEDS: Thiamine HCL 100 MG TABLET PO ×2 (08:52)
[2022-03-03] MEDS: Folic Acid 1 MG TABLET PO ×2 (08:53)
[2022-03-03] MEDS: Pyridoxine HCl (Vitamin B6) 50 MG TABLET PO (08:53)
[2022-03-03] MEDS: levETIRAcetam 500 MG TABLET 1500 MG PO ×2 (08:53→20:02)
[2022-03-03] MEDS: 0.9 % Sodium Chloride Flush 3 ML SYRINGE IVFLUSH ×3 (08:53→20:06)
[2022-03-03] MEDS: Docusate Sodium 100 MG CAPSULE PO ×2 (08:53→20:03)
[2022-03-03] MEDS: risperiDONE 0.5 MG TABLET PO ×2 (08:53→20:03)
[2022-03-03] MEDS: Multivitamin TABLET 1 TAB PO (08:53)
[2022-03-03] MEDS: Divalproex Sodium 500 MG TABLET.DR 1000 MG PO ×2 (08:53→20:01)
[2022-03-03] MEDS: Acetaminophen 325 MG TABLET 650 MG PO ×2 (08:59→16:54)
--- NOTE | 2022-03-03 13:29 | HO.PM.IMPN ---
Subjective Subjective Date of Service: 03/04/22 Interval History: Events from this morning noted at around 630 patient noted to an episode of SVT heart rate in to 170/180 range, seizure-like activity noted that lasted approximately 1 minute by RN, patient received as needed dose of phenobarb, this morning patient awake alert answering questions appropriately feels tired, denies having seizure, since as per patient and his dad at bedside patient has aura prior to seizure Sodium remains stable, no recurrent seizure activity this morning. Review of Systems Review of Systems: Yes all other systems are reviewed and are negative Physical Exam Vital Signs: Vital Signs: Last Vital Signs Temp 98.4 F 03/03/22 11:45 Pulse 99 03/03/22 11:45 Resp 19 03/03/22 11:45 BP 118/78 03/03/22 11:45 Pulse Ox 100 03/03/22 11:45 O2 Del Method 03/03/22 11:45 BMI result Body Mass Index 23.3 Const: Other: Gen: in no acute distress Neck: supple Lungs: clear to auscultation bilaterally Heart: regular rate and rhythm, no murmurs Abd: soft, non-tender, non-distended Ext: no edema Skin: warm/well-perfused Neuro: alert and oriented x3, no focal findings ? Objective Data Active Medications Acetaminophen (Acetaminophen 325 Mg Tablet) 650 mg PO Q6H PRN PRN Reason: Pain, Mild (Pain Scale 1-3) Last Admin: 03/03/22 08:59 Dose: 650 mg Documented By: CHALO Calcium Carbonate (Calcium Carbonate 500 Mg Tablet) 1,000 mg PO DAILY [facility] Last Admin: 03/03/22 08:52 Dose: 1,000 mg Documented By: CHALO Clonidine HCl (Clonidine Hcl 0.1 Mg Tablet) 0.1 mg PO DAILY PRN; Protocol PRN Reason: AGITATION,AGGRESSIVENESS Divalproex Sodium (Divalproex Sodium 500 Mg Tablet.) 1,000 mg PO BID [facility] Last Admin: 03/03/22 08:53 Dose: 1,000 mg Documented By: CHALO Docusate Sodium (Docusate Sodium 100 Mg Capsule) 100 mg PO BID [facility] Last Admin: 03/03/22 08:53 Dose: 100 mg Documented By: CHALO Enoxaparin Sodium (Enoxaparin Sodium 40 Mg/0.4 Ml Syringe) 40 mg SUBCUT Q24H [facility] Last Admin: 03/02/22 17:03 Dose: 40 mg Documented By: HAROLDO Folic Acid (Folic Acid 1 Mg Tablet) 1 mg PO DAILY [facility] Last Admin: 03/03/22 08:53 Dose: 1 mg Documented By: CHALO Folic Acid (Folic Acid 1 Mg Tablet) 1 mg PO DAILY [facility] Last Admin: 03/03/22 08:53 Dose: 1 mg Documented By: CHALO Levetiracetam (Levetiracetam 500 Mg Tablet) 1,500 mg PO BID [facility] Last Admin: 03/03/22 08:53 Dose: 1,500 mg Documented By: CHALO Loratadine (Loratadine 10 Mg Tablet) 10 mg PO DAILY PRN PRN Reason: post nasal drip Multivitamins/Vitamin C (Multivitamin Tablet) 1 tab PO DAILY [facility] Last Admin: 03/03/22 08:53 Dose: 1 tab Documented By: CHALO Ondansetron HCl (Ondansetron Hcl 4 Mg/2 Ml Vial) 4 mg IVPUSH Q8H PRN PRN Reason: Nausea and Vomiting Pharmacy Consult (Consult Rx Perform Med Rec) 1 each MISCELLANE ONCE PRN PRN Reason: Consult order Pyridoxine HCl (Pyridoxine Hcl (Vitamin B6) 50 Mg Tablet) 50 mg PO DAILY [facility] Last Admin: 03/03/22 08:53 Dose: 50 mg Documented By: CHALO Risperidone (Risperidone 0.5 Mg Tablet) 0.5 mg PO BID [facility] Last Admin: 03/03/22 08:53 Dose: 0.5 mg Documented By: CHALO Sodium Chloride (0.9 % Sodium Chloride Flush 3 Ml Syringe) 3 ml IVFLUSH QSHIFT [facility] Last Admin: 03/03/22 08:53 Dose: 3 ml Documented By: CHALO Thiamine HCl (Thiamine Hcl 100 Mg Tablet) 100 mg PO DAILY [facility] Last Admin: 03/03/22 08:52 Dose: 100 mg Documented By: CHALO Thiamine HCl (Thiamine Hcl 100 Mg Tablet) 100 mg PO DAILY [facility] Last Admin: 03/03/22 08:52 Dose: 100 mg Documented By: CHALO Vitamin D (Cholecalciferol (Vitamin D3) 25 Mcg Tablet) 100 mcg PO DAILY [facility] Last Admin: 03/03/22 08:52 Dose: 100 mcg Documented By: CHALO Labs CBC & Chem 7: 02/25/22 04:22 03/03/22 07:10 Assessment and Plan (1) Seizure: Status: Acute (2) Hyponatremia: Status: Acute Plan 46yo M with hx anoxic brain injury, cognitive delay, longstanding seizure disorder since childhood [on carbamazepine and valproate since childhood; started levetiracetam approximately 2 months ago at [facility]] admitted with recurrent seizure [7 recent hospitalizations for these] initially thought to be related to hypoNa lowering seizure threshold transferred to ICU 02/27/22 due to status epilepticus despite normalization of Na was loaded with phenobarbital and status epilepticus resolved stepped down to [facility] 02/28/22 #Sinus tachycardia Noted to have an heart rate in 170/180 range lasted for 4-5 minute during that time no seizure like activity noted by camera, nurse noted seizure-like activity Patient denies having a seizure, during day patient heart rate in 90-120 range sinus tachycardia no prior history of arrhythmia ,normal electrolytes, normal TSH, previous EKG showed normal sinus rhythm Will obtain cardiology consult, continue tele monitor if tachycardia persists will add low-dose beta-scott Question had seizure and patient not aware # seizure disorder/ longstanding history of epilepsy - status epilepticus resolved s/p phenobarbital load - per Neurology, continue valproate 1000 mg PO bid and increased levetiracetam to 1500 mg bid; discontinued carbamazepine due to contribution to hypoNa - with renew clonazepam 1 mg qam + 0.5 mg bid @1600 + 2000, plus lorazepam 2 mg tid prn breakthrough seizures - continue thiamine, pyridoxine, and folate supplementation PO - will need f/u with Dr Tamayo, his neurologist, as outpt # hyponatremia - 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; resolved with fluid restriction to 1000 mL/d and urea 15 g bid [pt was not getting urea at the residential home where he lives] - now that carbamazepine is being discontinued, fluid restriction and urea has been discontinued, sodium remains stable 136 today # cognitive delay/behavioral disturbance - continue chronic medications [risperidone, clonidine] # VTE ppx: LMWH In my clinical judgment, the patient requires continued hospitalization for the following reasons: status epilepticus, frequent hospitalizations for seizures, sodium monitoring, SVT, question recurrent seizure, high risk for re-admission Quality Stroke Does the patient have a stroke diagnosis?: No VTE Prior VTE?: No VTE Risk Level:: Medical - moderate - high VTE Device Contraindication: Treatment Not Indicated VTE Drug Contraindication: N/A - Med Ordered
[2022-03-03] MEDS: LORazepam 1 MG TABLET 2 MG PO (14:19)
[2022-03-03] MEDS: clonazePAM 0.5 MG TABLET PO ×2 (16:53→20:03)
[2022-03-03] MEDS: Enoxaparin Sodium 40 MG/0.4 ML SYRINGE SUBCUT (17:00)
[2022-03-04 03:24] VITALS: PULSE 112
[2022-03-04 05:54] VITALS: BMI 23.5
[2022-03-04 07:23] VITALS: BP 105/63; PULSE 95; RESP 18; TEMP 37; O2SAT 95
[2022-03-04] MEDS: levETIRAcetam 500 MG TABLET 1500 MG PO (09:43)
[2022-03-04] MEDS: Cholecalciferol (Vitamin D3) 25 MCG TABLET 100 MCG PO (09:43)
[2022-03-04] MEDS: Multivitamin TABLET 1 TAB PO (09:43)
[2022-03-04] MEDS: Pyridoxine HCl (Vitamin B6) 50 MG TABLET PO (09:44)
[2022-03-04] MEDS: Docusate Sodium 100 MG CAPSULE PO (09:44)
[2022-03-04] MEDS: clonazePAM 1 MG TABLET PO (09:44)
[2022-03-04] MEDS: Divalproex Sodium 500 MG TABLET.DR 1000 MG PO (09:45)
[2022-03-04] MEDS: Thiamine HCL 100 MG TABLET PO ×2 (09:45)
[2022-03-04] MEDS: risperiDONE 0.5 MG TABLET PO (09:45)
[2022-03-04] MEDS: Folic Acid 1 MG TABLET PO ×2 (09:45)
[2022-03-04] MEDS: 0.9 % Sodium Chloride Flush 3 ML SYRINGE IVFLUSH (09:46)
--- NOTE | 2022-03-04 10:08 | PM.EVENT ---
Event Note Date of Service: 03/04/22 Event Note: Reviewed the telemetry strips and was noted to be sinus tachycardia and not SVT. Discussed with Dr. Lang who is aware and knows about it. She will cancel the cardiology consultation
--- NOTE | 2022-03-04 10:33 | P.CDIC_ITS ---
CDI Concurrent Query Documentation Clarification: PHYSICIAN'S DOCUMENTATION REQUEST Date of Query: 03/04/22 1034 Patient Name: Chase Anaya Admit Date: 02/24/22 Dear Doctor, A review of the medical record indicates additional documentation may be needed. Please review below and update the documentation accordingly. Clinical Indicators Risk Factors/Clinical Indicators/Treatments Patient with long standing seizure disorder since childhood. Carbamazepine, Valproate, started Levetirace 2 months ago. Admit for seizure disorder, status epilepticus, resolved. If possible, please further clarify in the Progress Notes, the type/etiology, acuity and control status of seizure(s): Specify type/etiology: * Idiopathic * Febrile (specify simple or complex) * Due to stroke * Post-traumatic * Due to external cause (specify if drug, alcohol, stress, etc.) * Absence * Generalized epilepsy (grand mal, myoclonic, atonic, clonic, tonic-clonic, etc.) * Focal or partial (specify simple or complex) * Petit mal * Recurrent - further specify type/etiology * Other * Unable to determine Specify control status: * Well controlled * Intractable * Pharmacoresistant * Poorly controlled * Refractory * Treatment resistant * Other * Unable to determine Use of terms such as suspected, likely, concern for, or probable (associated with a specific diagnosis that is being evaluated, monitored, or treated as if it exists) are acceptable and can be coded in the inpatient setting, when documented at the time of discharge. Thank you, Harriet Goff [facility], CDIS Extension: [phone] Please use your independent medical judgment in providing your response. THIS QUERY IS PART OF THE PERMANENT MEDICAL RECORD Provider Response: Other Other Diagnosis: see note
--- NOTE | 2022-03-04 10:33 | MHC.CDI.CONC ---
CDI Concurrent Query Documentation Clarification: PHYSICIAN'S DOCUMENTATION REQUEST Date of Query: 03/04/22 1034 Patient Name: Chase Anaya Admit Date: 02/24/22 Dear Doctor, A review of the medical record indicates additional documentation may be needed. Please review below and update the documentation accordingly. Clinical Indicators Risk Factors/Clinical Indicators/Treatments Patient with long standing seizure disorder since childhood. Carbamazepine, Valproate, started Levetirace 2 months ago. Admit for seizure disorder, status epilepticus, resolved. If possible, please further clarify in the Progress Notes, the type/etiology, acuity and control status of seizure(s): Specify type/etiology: Idiopathic Febrile (specify simple or complex) Due to stroke Post-traumatic Due to external cause (specify if drug, alcohol, stress, etc.) Absence Generalized epilepsy (grand mal, myoclonic, atonic, clonic, tonic-clonic, etc.) Focal or partial (specify simple or complex) Petit mal Recurrent - further specify type/etiology Other Unable to determine Specify control status: Well controlled Intractable Pharmacoresistant Poorly controlled Refractory Treatment resistant Other Unable to determine Use of terms such as suspected, likely, concern for, or probable (associated with a specific diagnosis that is being evaluated, monitored, or treated as if it exists) are acceptable and can be coded in the inpatient setting, when documented at the time of discharge. Thank you, Harriet Goff [facility], CDIS Extension: [phone] Please use your independent medical judgment in providing your response. THIS QUERY IS PART OF THE PERMANENT MEDICAL RECORD Provider Response: Other Other Diagnosis: see note
--- NOTE | 2022-03-04 10:49 | P.DS_ITS ---
DS: Providers Provider Date of Service: 03/04/22 Date of admission: 02/24/22 16:38 Primary care physician: LOIS Constantino Consults: 02/24/22 16:38 Consult to Nephrology Routine Consulting Provider: Curtis Lujan Reason for consultation: hyponatremia Has provider been notified: No 02/27/22 07:46 Consult to Neurology Routine Consulting Provider: [facility] Reason for consultation: breakthrough seizures 02/27/22 09:46 Consult for Sitter Routine Reason for consultation: self injurious behavior DS: Diagnosis Discharge Diagnosis (1) Seizure: Status: Acute (2) Hyponatremia: Status: Acute DS: Summary Hospital Course Hospital Course: History of presenting illness Date of Service: 02/24/22 Chief Complaint: Seizure ?46-year-old man presenting from intermediate after witnessed seizure.? Does have a history of seizures and cognitive delay.? He also has a history of hyponatremia as well as SIADH and has been on a fluid restriction since discharge on 02/07/2022.? In the ER he has not had any further seizure activity he denied chest pain, shortness of breath, nausea, vomiting, diarrhea.? Although he has intellectual delay he is able to answer questions appropriately apparently he has been on a L fluid restriction but not urea.? ED provider did discuss with the river guide who recommended continuing urea.? Sodium initially was noted to be 122 with repeat of 124 all other labs within acceptable limits vital signs stable.? He did receive a dose of urea in the ER. He was asking for his seizure medictions.? He will be admitted for further management and treatment of acute seizure with acute on chronic hyponatremia. Hospital course 46yo M with hx of anoxic brain injury, cognitive delay, longstanding seizure disorder since childhood [on carbamazepine and valproate since childhood; started levetiracetam approximately 2 months ago at [facility]] admitted with recurrent seizure [7 recent hospitalizations for these] initially thought to be related to hypoNa lowering seizure threshold transferred to ICU 02/27/22 due to status epilepticus despite normalization of Na was loaded with phenobarbital and status epilepticus resolved stepped down to [facility] 02/28/22 # recurrent seizure with longstanding history of epilepsy, status epilepticus resolved s/p phenobarbital load patient was seen in consultation by Dr. Holland Depakote 1000 mg twice daily has been continued dose of Keppra increased to 1500 mg b.i.d.,carbamazepine discontinued due to hyponatremia, patient's sodium remains stable, patient did not have recurrent breakthrough seizure, he has also been continued on clonazepam 1 mg qam + 0.5 mg bid @1600 + 1999, plus lorazepam 2 mg tid prn breakthrough seizures, will continue thiamine, pyridoxine, and folate supplementation , patient will need f/u with Dr Tamayo, his neurologist, as outpt Patient noted to have sinus tachycardia, patient remained asymptomatic electrolytes and TSH are stable. No further workup warranted at this time. ? # hyponatremia 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; resolved with fluid restriction to 1000 mL/d and urea 15 g bid , now that carbamazepine is discontinued, sodium remains stable, fluid restriction and urea has been discontinued # cognitive delay/behavioral disturbance recommend to continue home medication risperidone and clonidine Time Spent with Patient Time attestation: Total time spent providing and/or coordinating discharge services: Discharge coordination time: Greater than 30 minutes Quality: Safe Use of Opioids Does Pt have an Active Cancer Diagnosis on the Problem List?: No Quality: Stroke Does the patient have a stroke diagnosis?: No Physical Exam Vital Signs: Vital Signs: Last Vital Signs Temp 98.6 F 03/04/22 07:23 Pulse 95 03/04/22 07:23 Resp 18 03/04/22 07:23 BP 105/63 03/04/22 07:23 Pulse Ox 95 03/04/22 07:23 O2 Del Method 03/04/22 07:23 BMI result Body Mass Index 23.5 Const: Other: Gen: no acute distress HEENT: sclera anicteric, moist mucus membranes Neck: supple Lungs: clear to auscultation bilaterally Heart: regular rate and rhythm, no murmurs Abd: soft, non-tender, non-distended Ext: no edema Skin: warm/well-perfused Neuro: alert and oriented x3, no focal findings Discharge Plan Discharge Patient Disposition: Home Health Service Discharge Diagnosis: Seizure disorder/status epilepticus Hyponatremia Referrals: Cydney Estrella PA [Primary Care Provider] - 1 Week Discharge Medications: New levetiracetam 500 mg Tablet 1,500 mg PO BID Qty: 180 0RF Continued multivitamin Tablet 1 tab PO DAILY clonidine HCl 0.1 mg tablet 1 tab PO DAILY PRN (Reason: AGITATION,AGGRESSIVENESS) cetirizine [Zyrtec] 10 mg Tablet 10 mg PO DAILY PRN (Reason: post nasal drip) clonazepam 0.5 mg tablet 0.5 mg PO BID@1600,2000 clonazepam 0.5 mg tablet 1 mg PO DAILY divalproex 500 mg tablet,delayed release (DR/EC) 2 tab PO BID lorazepam 2 mg tablet 1 tab PO TID MDD 3 PRN (Reason: Seizures) calcium carbonate [Juan-Gest Antacid] 200 mg calcium (500 mg) Tablet,Chewable 1,000 mg PO DAILY docusate sodium [Colace] 100 mg Capsule 100 mg PO BID risperidone 0.5 mg tablet 1 tab PO BID diclofenac sodium 1 % Gel 1 g TOPICAL QID PRN (Reason: Pain (Scale Score 4-6)) cholecalciferol (vitamin D3) [Vitamin D3] 50 mcg (2,000 unit) Tablet 100 mcg PO DAILY omega 2-uzj-yir-fish oil [Fish Oil] 1,000 mg (120 mg-180 mg) Capsule 1 cap PO DAILY Discontinued carbamazepine 400 mg tablet extended release 12 hr 1 tab PO BID levetiracetam 1,000 mg tablet 1 tab PO BID Discharge Orders: Discharge Order (Routine); Ordered 03/04/22 Ordered By: Sindy Lang Diet: Advance to usual diet Activity on Discharge: As tolerated Stand Alone Forms: Patient Portal Discharge page Care Plan Goals: Hyponatremia resolved, discontinue carbamazepine, dose of Keppra increased to 1500 mg b.i.d. , take seizure precaution Health Concerns: Take all home medications as before Plan of Treatment: Outpatient follow-up with primary neurologist and primary care physician, call to make appointment Assessment: As per discharge summary
--- NOTE | 2022-03-04 11:28 | MHC.CM.PN ---
Patient has been medically cleared for dc today, [facility]. Patient will not qualify for VNA at this time because he has not yet been established with his new PCP( made aware). Last IMM addressed yesterday. Jail staff is providing transportation.
== END 2022-03-04 11:50 | disposition other institution (70) | DRG 644 ==
LOC: HO.ED 16:19 → HO.EDOVER 16:48 → HO.S3 02-25 19:16 → HO.ICU 02-27 12:56 → HO.IMC 02-28 09:09
PROVIDERS: Anesthesiology; Family Medicine; Internal Medicine Nephrology; Nurse Practitioner Family; Admitting Provider Nurse Practitioner Acute Care; Emergency Provider Emergency Medicine; PCP Physician Assistant; Visit Provider Hospitalist
DX: E22.2 Syndrome of inappropriate secretion of antidiuretic hormone (principal); G93.49 Other encephalopathy; I47.1 Supraventricular tachycardia; G40.401 Other generalized epilepsy and epileptic syndromes, not intractable, with status epilepticus; F41.9 Anxiety disorder, unspecified; Z91.14 Patient's other noncompliance with medication regimen; T42.1X5A Adverse effect of iminostilbenes, initial encounter; G31.84 Mild cognitive impairment of uncertain or unknown etiology; Z20.822 Contact with and (suspected) exposure to COVID-19; Z79.899 Other long term (current) drug therapy
CPT/HCPCS: 36415; 70450; 80048; 80051; 80053; 80156; 80164; 80184; 81003; 82530; 83735; 83935; 84295; 84300; 84443; 85025; 87635; 93005; 99285; J1650; J1953; J2250; J2560; J3411

== ENCOUNTER 2022-04-08 10:07 | Observation (INO) | payer MEDICARE, MEDICAID, SELFPAY ==
[2022-04-08] VITALS (8 sets, daily range): BP systolic 117–147; BP diastolic 76–95; PULSE 79–101; RESP 14–20; TEMP 36.5–36.9; O2SAT 96–100; BMI 22.1
--- NOTE | 2022-04-08 10:12 | ED.SEIZURE ---
HPI - Seizure General Chief Complaint: Seizure Stated Complaint: SEIZURES Source: patient, EMS and old records reviewed Mode of arrival: EMS Limitations: other (cognitive delay) History of Present Illness HPI Narrative: 47 yo male with hx of seizures on depakote, keppra, SIADH thought to be due to carbamazepine, cognitive delay presents from [facility] with c/o two seizures this morning GTC no return to baseline in between confused afterwards with some agitation. He is now at baseline. Reports getting medications this AM but not totally sure. No trauma reported. No tongue biting, no recent illness. MD complaint: seizure Onset (ago): minute(s) (prior to arrival ) Description of Episode: loss of consciousness and tonic-clonic movement Duration of episode: 3 -: minutes(s) Witnessed: Yes - by Bystander (staff) Trauma: No Seizure History: Yes Place: Home Possible Precipitating Event: none Associated symptoms: denies other symptoms Treatments prior to arrival: none Related Data Home Medications Medication Instructions Recorded Confirmed calcium carbonate 200 mg calcium 1,000 mg PO DAILY 12/31/21 02/24/22 (500 mg) chewable tablet (Juan-Gest Antacid) cetirizine 10 mg tablet (Zyrtec) 10 mg PO DAILY PRN post nasal drip 12/31/21 02/24/22 cholecalciferol (vitamin D3) 50 100 mcg PO DAILY 12/31/21 02/24/22 mcg (2,000 unit) tablet (Vitamin D3) clonazepam 0.5 mg tablet 0.5 mg PO BID@1600,2000 12/31/21 02/24/22 clonazepam 0.5 mg tablet 1 mg PO DAILY 12/31/21 02/24/22 clonidine HCl 0.1 mg tablet 1 tab PO DAILY PRN 12/31/21 02/24/22 AGITATION,AGGRESSIVENESS diclofenac sodium 1 % topical gel 1 g topical QID PRN Pain (Scale 12/31/21 02/24/22 Score 4-6) divalproex 500 mg tablet,delayed 2 tab PO BID 12/31/21 02/24/22 release docusate sodium 100 mg capsule 100 mg PO BID 12/31/21 02/24/22 (Colace) lorazepam 2 mg tablet 1 tab PO TID PRN Seizures 12/31/21 02/24/22 multivitamin 1 tab PO DAILY 12/31/21 02/24/22 omega 6-mil-wgz-fish oil 1,000 mg 1 cap PO DAILY 12/31/21 02/24/22 (120 mg-180 mg) capsule (Fish Oil) risperidone 0.5 mg tablet 1 tab PO BID 12/31/21 02/24/22 Previous Rx's Medication Instructions Recorded levetiracetam 500 mg tablet 1,500 mg PO BID #180 tabs 03/04/22 Allergies Allergy/AdvReac Type Severity Reaction Status Date / Time No Known Allergies Allergy Verified 12/31/21 15:26 [No Known Allergies*] Review of Systems Review of Systems: Constitutional : No Fever, No Chills, No Fatigue ENT/Mouth : No sore throat, No Rhinorrhea Eyes: No Eye Pain, No Swelling, No Redness Cardiovascular : No Chest Pain, No SOB, No Dyspnea on Exertion Respiratory : No Cough, No Sputum Gastrointestinal : No Nausea, No Vomiting, No Diarrhea, No abdominal Pain Genitourinary : No Dysuria, No Urinary Frequency, No Hematuria, Musculoskeletal : No joint pain, No Myalgias, No Joint Swelling Skin : No Skin Lesions, No rash Neuro : No Weakness, No Numbness, No Dizziness, no Headache, pos seizure Psych : No Anxiety/Panic, No Depression All other systems reviewed and are negative [facility] Past Medical History Source: old records reviewed Medical History Anxiety disorder, unspecified History of SIADH Hyponatremia Intellectual disability Seizure disorder Surgical History No pertinent past surgical history Family History Family History Other No family history of coronary artery disease Social History Social History Household Members: Other Household Members Other:: group homr Housing: Other Housing Other:: [facility] Alcohol intake: never Patient Tobacco Use Status: Never used Tobacco e-Cigarette/Vaping Use: Never Used Advance Directives: Yes Advance Directives on File: Yes Advance Directives Date on File: 02/06/22 service: No Current occupational status: disabled Physical Exam Vital Signs: Vital Signs: Last Vital Signs Temp 98.4 F 04/08/22 14:17 Pulse 101 H 04/08/22 14:17 Resp 18 04/08/22 14:17 BP 118/76 04/08/22 14:17 Pulse Ox 100 04/08/22 14:17 O2 Del Method 04/08/22 14:17 O2 Flow Rate 3 04/08/22 14:17 BMI result Body Mass Index 22.1 Appearance: Alert. Oriented X3. No acute distress. Eyes: Pupils equal, round and reactive to light. ENT: Pharynx normal. atraumatic no tongue biting Neck: Normal inspection. Neck supple. CVS: Normal heart rate and rhythm. Pulses normal. Respiratory: No respiratory distress. Breath sounds normal. Abdomen: Soft and non-tender. Skin: Skin warm and dry. Normal skin color. Normal skin turgor. Extremities: No lower extremity edema. No calf ttp Neuro: Oriented X 3. No motor deficit. No sensory deficit. Course Course Course Narrative: 45 seconds of GTC shaking eyes rolled back, loud groan IV versed 4mg ordered believed not to have received his keppra this AM 1500mg ordered mild seizure reported yesterday as well call to Neurology 1051am Dr. Skyler angeles start on lamotrigine 25mg BID after review likely missed doses of keppra - hold lamotrigine per neurology this was due to missed medications keep same regimen can go home today depakote likely high due to being checked after dose given patient eating and at baseline - can be DC at 3 hour yumiko after depakote level discussion with Dr. Holland make depakote dosing three times a day - recheck keppra and depakote levels in 1 week repeat seizure 125pm lasting 60 seconds, will admit at this time - 4mg ordered Dr. Skyler angeles MDM - Seizure MDM Narrative Medical decision making narrative: 47 yo male with hx of seizures on depakote, keppra, SIADH thought to be due to carbamazepine, cognitive delay presents from [facility] with c/o two seizures this morning at this time will need labs, IV versed, will call [facility] for better history of what happened. Close eye to Na level as well given history. Lab Data Result diagrams: 04/08/22 11:35 04/08/22 11:35 Labs: Lab Results 04/08/22 04/08/22 04/08/22 Range/Units 10:24 11:06 11:35 WBC 7.7 (4.8-10.8) X10*3/uL RBC 4.38 L (4.60-5.80) X10*6/uL Hgb 14.4 (14.0-18.0) g/dl Hct 42.8 (42.0-52.0) % MCV 97.7 (80.0-98.0) fL MCH 32.9 (27.0-33.0) pg MCHC 33.6 (31.0-36.0) g/dl RDW 12.9 (11.0-16.0) % Plt Count 165 (160-400) X10*3/uL MPV 9.9 (9.4-12.4) fL Immature Gran % (Auto) 0.5 H (0.0-0.4) % Neut % (Auto) 77.0 H (45-73) % Lymph % (Auto) 10.9 L (20-40) % Randall % (Auto) 11.5 H (2-11) % Eos % (Auto) 0.0 (0-4) % Baso % (Auto) 0.1 (0-2) % Lymph # (Auto) 0.8 L (1.2-4.9) X10*3/uL Randall # (Auto) 0.9 (0.1-1.2) X10*3/uL Eos # (Auto) 0.0 (0.0-0.4) X10*3/uL Baso # (Auto) 0.0 (0.0-0.2) X10*3/uL Abs Immat Gran (auto) 0.04 H (0.00-0.03) X10*3/uL Absolute Neuts (auto) 6.0 (2.0-8.3) x10*3/uL Absolute Nucleated RBC 0.000 (0.0-0.012) X10*3/uL Nucleated RBC % (auto) 0.0 (0.0-0.2) /100WBC PT (10.0-13.1) SEC INR (0.9-1.1) Sodium (135-145) mmol/L Potassium (3.3-5.1) mmol/L Chloride (96-108) mmol/L Carbon Dioxide (22-29) mmol/L Anion Gap (12-20) BUN (9-16) mg/dL Creatinine (0.5-1.4) mg/dL Estim Creat Clear Calc Estimated GFR POC Glucose 86 (60-115) mg/dL Random Glucose (60-115) mg/dL Calcium (8.4-10.2) mg/dL Magnesium (1.6-2.6) mg/dL Total Bilirubin (0.0-1.0) mg/dL Direct Bilirubin (0.0-0.5) mg/dL AST (5-37) U/L ALT (0-40) U/L Alkaline Phosphatase (39-117) U/L Total Protein (6.5-8.0) g/dL Albumin (3.5-5.0) g/dL Urine Color Urine Appearance Urine pH (5.0-9.0) Ur Specific [place] (1.005-1.025) Urine Protein (Neg-Trace) mg/dL Urine Glucose (UA) (Negative) mg/dL Urine Ketones (Negative) mg/dL Urine Blood (Negative) Urine Nitrite (Negative) Ur Leukocyte Esterase (Negative) Valproic Acid (50.0-100.0) mcg/mL COVID-19 (JANICE) Negative (Negative) COVID-19 Clin Com See Note 04/08/22 04/08/22 04/08/22 Range/Units 11:35 11:35 11:35 WBC (4.8-10.8) X10*3/uL RBC (4.60-5.80) X10*6/uL Hgb (14.0-18.0) g/dl Hct (42.0-52.0) % MCV (80.0-98.0) fL MCH (27.0-33.0) pg MCHC (31.0-36.0) g/dl RDW (11.0-16.0) % Plt Count (160-400) X10*3/uL MPV (9.4-12.4) fL Immature Gran % (Auto) (0.0-0.4) % Neut % (Auto) (45-73) % Lymph % (Auto) (20-40) % Randall % (Auto) (2-11) % Eos % (Auto) (0-4) % Baso % (Auto) (0-2) % Lymph # (Auto) (1.2-4.9) X10*3/uL Randall # (Auto) (0.1-1.2) X10*3/uL Eos # (Auto) (0.0-0.4) X10*3/uL Baso # (Auto) (0.0-0.2) X10*3/uL Abs Immat Gran (auto) (0.00-0.03) X10*3/uL Absolute Neuts (auto) (2.0-8.3) x10*3/uL Absolute Nucleated RBC (0.0-0.012) X10*3/uL Nucleated RBC % (auto) (0.0-0.2) /100WBC PT 11.9 (10.0-13.1) SEC INR 1.0 (0.9-1.1) Sodium 137 (135-145) mmol/L Potassium 4.2 (3.3-5.1) mmol/L Chloride 101 (96-108) mmol/L Carbon Dioxide 24 (22-29) mmol/L Anion Gap 16 (12-20) BUN 7 L (9-16) mg/dL Creatinine 0.67 (0.5-1.4) mg/dL Estim Creat Clear Calc 129.9 Estimated GFR > 60 POC Glucose (60-115) mg/dL Random Glucose 82 (60-115) mg/dL Calcium 9.4 D (8.4-10.2) mg/dL Magnesium 2.1 (1.6-2.6) mg/dL Total Bilirubin 0.4 (0.0-1.0) mg/dL Direct Bilirubin 0.2 (0.0-0.5) mg/dL AST 38 H D (5-37) U/L ALT 22 (0-40) U/L Alkaline Phosphatase 40 (39-117) U/L Total Protein 7.1 (6.5-8.0) g/dL Albumin 4.5 (3.5-5.0) g/dL Urine Color Urine Appearance Urine pH (5.0-9.0) Ur Specific [place] (1.005-1.025) Urine Protein (Neg-Trace) mg/dL Urine Glucose (UA) (Negative) mg/dL Urine Ketones (Negative) mg/dL Urine Blood (Negative) Urine Nitrite (Negative) Ur Leukocyte Esterase (Negative) Valproic Acid 123.1 H* (50.0-100.0) mcg/mL COVID-19 (JANICE) (Negative) COVID-19 Clin Com 04/08/22 Range/Units 12:40 WBC (4.8-10.8) X10*3/uL RBC (4.60-5.80) X10*6/uL Hgb (14.0-18.0) g/dl Hct (42.0-52.0) % MCV (80.0-98.0) fL MCH (27.0-33.0) pg MCHC (31.0-36.0) g/dl RDW (11.0-16.0) % Plt Count (160-400) X10*3/uL MPV (9.4-12.4) fL Immature Gran % (Auto) (0.0-0.4) % Neut % (Auto) (45-73) % Lymph % (Auto) (20-40) % Randall % (Auto) (2-11) % Eos % (Auto) (0-4) % Baso % (Auto) (0-2) % Lymph # (Auto) (1.2-4.9) X10*3/uL Randall # (Auto) (0.1-1.2) X10*3/uL Eos # (Auto) (0.0-0.4) X10*3/uL Baso # (Auto) (0.0-0.2) X10*3/uL Abs Immat Gran (auto) (0.00-0.03) X10*3/uL Absolute Neuts (auto) (2.0-8.3) x10*3/uL Absolute Nucleated RBC (0.0-0.012) X10*3/uL Nucleated RBC % (auto) (0.0-0.2) /100WBC PT (10.0-13.1) SEC INR (0.9-1.1) Sodium (135-145) mmol/L Potassium (3.3-5.1) mmol/L Chloride (96-108) mmol/L Carbon Dioxide (22-29) mmol/L Anion Gap (12-20) BUN (9-16) mg/dL Creatinine (0.5-1.4) mg/dL Estim Creat Clear Calc Estimated GFR POC Glucose (60-115) mg/dL Random Glucose (60-115) mg/dL Calcium (8.4-10.2) mg/dL Magnesium (1.6-2.6) mg/dL Total Bilirubin (0.0-1.0) mg/dL Direct Bilirubin (0.0-0.5) mg/dL AST (5-37) U/L ALT (0-40) U/L Alkaline Phosphatase (39-117) U/L Total Protein (6.5-8.0) g/dL Albumin (3.5-5.0) g/dL Urine Color Yellow Urine Appearance Clear Urine pH 7.5 (5.0-9.0) Ur Specific [place] 1.020 (1.005-1.025) Urine Protein Trace (Neg-Trace) mg/dL Urine Glucose (UA) Negative (Negative) mg/dL Urine Ketones 15 (Negative) mg/dL Urine Blood Negative (Negative) Urine Nitrite Negative (Negative) Ur Leukocyte Esterase Negative (Negative) Valproic Acid (50.0-100.0) mcg/mL COVID-19 (JANICE) (Negative) COVID-19 Clin Com ECG Data Attestation: I personally reviewed and interpreted this ECG as follows: ECG interpretation date: 04/08/22 ECG interpretation time: 12:12 Interpretation: Rate: 84 Rhythm: NSR [place]: normal Normal P waves. Normal SWAPNIL. Normal QRS complex. ST T wave : normal no KEVON qTC: normal prior studies: no acute ischemia The study has been interpreted contemporaneously by me. . Critical Care Time Critical Care Time Critical Care Time: Yes Total Critical Care Time: 45 Attestation: repeat assessments, repeat IV versed, medical consult, review of records I attest to this time spent taking care of the patient Discharge Plan Discharge Clinical Impression: Epileptic seizure Qualifiers: Epilepsy type: unspecified Intractability: not intractable Status epilepticus: without status epilepticus Qualified Code(s): G40.909 - Epilepsy, unspecified, not intractable, without status epilepticus Patient Disposition: Admitted As Inpatient
--- NOTE | 2022-04-08 10:15 | ECG_ITS ---
Test Reason : seizure Blood Pressure : / mmHG Vent. Rate : 084 BPM Atrial Rate : 084 BPM P-R Int : 112 ms QRS Dur : 084 ms QT Int : 340 ms P-R-T Axes : 045 060 058 degrees QTc Int : 401 ms Normal sinus rhythm Normal ECG When compared with ECG of 03-MAR-2022 14:15, No significant change was found Referred By: Adeola Mahmood Electronically Signed By:KIM MEHTA
[2022-04-08 10:27] LABS: Glucose, Whole Blood 86 mg/dL (60-115)
[2022-04-08] MEDS: levETIRAcetam in NaCl (iso-os) 1,000 MG/100 ML PIGGYBACK 400 MG IV (10:40)
[2022-04-08] MEDS: Midazolam HCl/PF 2 MG/2 ML VIAL IVPUSH ×4 (10:41→13:34)
[2022-04-08] MEDS: levETIRAcetam in NaCl (iso-os) 500 MG/100 ML PIGGYBACK 400 MG IV (10:54)
[2022-04-08] MEDS: ondansetron HCL 4 MG/2 ML VIAL IVPUSH (10:54)
[2022-04-08 11:35] LABS: COVID-19 Test Negative (Negative)
[2022-04-08 11:40] LABS: MANUAL DIFF FLAG NO
[2022-04-08 11:43] LABS: Basophils Percent Auto 0.1 % (0-2); Hematocrit 42.8 % (42.0-52.0); Hemoglobin 14.4 g/dl (14.0-18.0); Imm Gran Abs Auto 0.04 X10*3/uL (0.00-0.03); Imm Gran Pct Auto 0.5 % (0.0-0.4); Lymphocytes Absolute Auto 0.8 X10*3/uL (1.2-4.9); Lymphocytes Percent Auto 10.9 % (20-40); Mean Corpuscular HGB Conc 33.6 g/dl (31.0-36.0); Mean Corpuscular Hemoglobin 32.9 pg (27.0-33.0); Mean Corpuscular Volume 97.7 fL (80.0-98.0); Mean Platelet Volume 9.9 fL (9.4-12.4); Monocytes Absolute Auto 0.9 X10*3/uL (0.1-1.2); Monocytes Percent Auto 11.5 % (2-11); Platelet Count 165 X10*3/uL (160-400); Red Blood Count 4.38 X10*6/uL (4.60-5.80); Red Cell Distribution Width 12.9 % (11.0-16.0); White Blood Count 7.7 X10*3/uL (4.8-10.8)
[2022-04-08] MEDS: Thiamine HCL 200 MG in 0.9 % Sodium Chloride 100 ML 204 MG IV (11:43)
[2022-04-08] MEDS: lamoTRIgine 25 MG TABLET PO (11:50)
[2022-04-08 12:00] LABS: Prothrombin Time 11.9 SEC (10.0-13.1)
[2022-04-08 12:01] LABS: Alanine Aminotransferase 22 U/L (0-40); Albumin Level 4.5 g/dL (3.5-5.0); Alkaline Phosphatase 40 U/L (39-117); Anion Gap 16 (12-20); Aspartate Amino Transferase 38 U/L (5-37); Bilirubin Direct 0.2 mg/dL (0.0-0.5); Bilirubin Total 0.4 mg/dL (0.0-1.0); Blood Urea Nitrogen 7 mg/dL (9-16); Calcium 9.4 mg/dL (8.4-10.2); Carbon Dioxide 24 mmol/L (22-29); Chloride 101 mmol/L (96-108); Creatinine Clr Calc Pharmacy 129.9; Estimated Glomerular Filt Rate > 60; Glucose Random 82 mg/dL (60-115); Magnesium 2.1 mg/dL (1.6-2.6); Potassium 4.2 mmol/L (3.3-5.1); Sodium 137 mmol/L (135-145); Total Protein 7.1 g/dL (6.5-8.0)
[2022-04-08 12:25] LABS: Valproate 123.1 mcg/mL (50.0-100.0)
[2022-04-08 12:48] LABS: Appearance Urine Clear; Color Urine Yellow; Glucose Urine UA Negative (Negative); Leukocyte Esterase Urine Negative (Negative); Nitrite Urine Negative (Negative); PH 7.5 (5.0-9.0); Urine Blood Negative (Negative); Urine Ketones 15 mg/dL (Negative); Urine Protein Trace mg/dL (Neg-Trace)
--- NOTE | 2022-04-08 12:53 | PM.NEUROCN ---
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 His injury happened at or around that time. In younger age he was put on phenobarbital for seizure control, which many years later was changed to Depakote and carbamazepine. His seizures were never really fully controlled any used to see Dr. Rice at [facility]. He has started coming to [facility] in 2021. In fact he came with status epilepticus. During his hospitalization carbamazepine was discontinued and his levetiracetam was increased. I saw him in my office after that and he was doing fine with full seizure control. Yesterday I got a call that he had another seizure in today he was in emergency room with a breakthrough seizure lasting more than 3 minutes. Initially situation was not clear but I am learning that he might have missed doses of levetiracetam because his facility was not able to get it on time. He has been loaded with it in emergency room and also has gotten an dose of lamotrigine. Review of Systems Review of Systems: No recent cold or flu-like illness PMFSH Past Medical History Medical History Anxiety disorder, unspecified History of SIADH Hyponatremia Intellectual disability Seizure disorder Family History Family History Other No family history of coronary artery disease Surgical History Surgical History No pertinent past surgical history Social History Social History Household Members: Other Household Members Other:: group homr Housing: Other Housing Other:: long-term Alcohol intake: never Patient Tobacco Use Status: Never used Tobacco e-Cigarette/Vaping Use: Never Used Advance Directives: Yes Advance Directives on File: Yes Advance Directives Date on File: 02/06/22 service: No Current occupational status: disabled Meds Allergies Allergy/AdvReac Type Severity Reaction Status Date / Time No Known Allergies Allergy Verified 12/31/21 15:26 [No Known Allergies*] Home Medications Medication Instructions Recorded Confirmed Last Taken Type calcium carbonate 200 mg calcium 1,000 mg PO DAILY 12/31/21 02/24/22 02/23/22 History (500 mg) chewable tablet (Juan-Gest Antacid) cetirizine 10 mg tablet (Zyrtec) 10 mg PO DAILY PRN post nasal drip 12/31/21 02/24/22 02/23/22 History cholecalciferol (vitamin D3) 50 100 mcg PO DAILY 12/31/21 02/24/22 02/23/22 History mcg (2,000 unit) tablet (Vitamin D3) clonazepam 0.5 mg tablet 0.5 mg PO BID@1600,199912/31/21 02/24/22 02/23/22 History clonazepam 0.5 mg tablet 1 mg PO DAILY 12/31/21 02/24/22 02/23/22 History clonidine HCl 0.1 mg tablet 1 tab PO DAILY PRN 12/31/21 02/24/22 02/23/22 History AGITATION,AGGRESSIVENESS diclofenac sodium 1 % topical gel 1 g topical QID PRN Pain (Scale 12/31/21 02/24/22 02/23/22 History Score 4-6) divalproex 500 mg tablet,delayed 2 tab PO BID 12/31/21 02/24/22 02/23/22 History release docusate sodium 100 mg capsule 100 mg PO BID 12/31/21 02/24/22 02/23/22 History (Colace) lorazepam 2 mg tablet 1 tab PO TID PRN Seizures 12/31/21 02/24/22 02/23/22 History multivitamin 1 tab PO DAILY 12/31/21 02/24/22 02/23/22 History omega 9-ayb-lry-fish oil 1,000 mg 1 cap PO DAILY 12/31/21 02/24/22 02/23/22 History (120 mg-180 mg) capsule (Fish Oil) risperidone 0.5 mg tablet 1 tab PO BID 12/31/21 02/24/22 02/23/22 History Physical Exam Vital Signs: Vital Signs: Last Vital Signs Temp 97.7 F 04/08/22 11:59 Pulse 92 04/08/22 11:59 Resp 19 04/08/22 11:59 BP 125/88 04/08/22 11:59 Pulse Ox 99 04/08/22 11:59 O2 Del Method 04/08/22 11:59 BMI result Body Mass Index 22.1 Neuro: Other: Alert and awake with normal spontaneity of speech fluency comprehension and his usual affect. He was little bit restless. Results Labs CBC & Chem 7: 04/08/22 11:35 04/08/22 11:35 Labs: Short CBC 04/08/22 Range/Units 11:35 WBC 7.7 (4.8-10.8) X10*3/uL Hgb 14.4 (14.0-18.0) g/dl Hct 42.8 (42.0-52.0) % Plt Count 165 (160-400) X10*3/uL BMP 04/08/22 11:35 Sodium 137 Potassium 4.2 Chloride 101 Carbon Dioxide 24 BUN 7 L Creatinine 0.67 Calcium 9.4 D Liver Function 04/08/22 Range/Units 11:35 Total Bilirubin 0.4 (0.0-1.0) mg/dL Direct Bilirubin 0.2 (0.0-0.5) mg/dL AST 38 H D (5-37) U/L ALT 22 (0-40) U/L Alkaline Phosphatase 40 (39-117) U/L Albumin 4.5 (3.5-5.0) g/dL Urine 04/08/22 Range/Units 12:40 Urine Color Yellow Urine Appearance Clear Urine pH 7.5 (5.0-9.0) Ur Specific [place] 1.020 (1.005-1.025) Urine Protein Trace (Neg-Trace) mg/dL Urine Glucose (UA) Negative (Negative) mg/dL Assessment and Plan (1) Breakthrough seizure: Status: Acute 47 years old man with chronic static encephalopathy and chronic epilepsy. His usual dose of levetiracetam was 500 mg 3 twice a day while he was also taking Depakote 500 mg 2 twice a day. He comes with 2 seizures in 24 hours, which might have happened because he did not get his proper dose of levetiracetam. Now he was loaded again in emergency room. At this time my recommendation is to continue the same medications and not start lamotrigine that I initially set to start. He has obtain 1 dose of lamotrigine but at this time we will hold further doses. His father was in the room and was informed of my thinking that present seizures might have happened because of missed doses of levetiracetam. Otherwise he could go back to his place of residence. Procedures Date of Service Date of Service: 04/08/22
--- NOTE | 2022-04-08 13:36 | PC.NURSE ---
patient actively seizing . positioned upright . Dr. Mahmood notified and at bedside . Administered oxygen via nasal canulla at 3l . 2ml versed given and another 2mg versed given as ordered .vss- 133/86 100 3l hr 88 . father at bedside . family and patient aware of plan of care .
--- NOTE | 2022-04-08 14:58 | P.HPHOSP_ITS ---
History of Present Illness Date of Service: 04/08/22 Attending physician on admission: Chantel Fortune Chief Complaint: seizures 47 year old female with history longstanding seizure disorder followingwith Dr. Holland and cognitive delay following anoxic brain injury at brought to the ED for evaluation of prolonged seziure >3min with posta ictal phase. Patient had two seizures this morning (generalized tonic clonic) without return to baseline with confusion and aggitation noted after seizure. Per protocol, due to prolonged seizure, pt transferred to hospital via ems. There was no trauma reported or tongue biting. Denies recent illness. Recently discharged one month ago for seizures with status epilepticus. 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 Electrolytes in ED today normal. Now on depakote 1000mg BID and keppra 1500mg BID. Pt states he was not given doses of keppra this am or last night. However, spoke with RN at [facility]term where pt resides and there is not documentation of patient missing doses at that time, but possibly wednesday morning dose of keppra missed. Father, who is guardian, and present on exam expresses concerns about long-term staff education on medication administration. While in the ED, patient experienced another 45 se cond episode GTC and was given 4mg IV versed and neurology consulted. Also given 25mg lamotrigine and thiamine. Plan to discharge home with increased dose depakote but patient had addl 60 second seizure and decision to admit was made. Review of Systems Review of Systems: General: No fevers, malaise, unintentional weight loss HEENT: No blurred vision, diplopia Cardiovascular: No chest pain, palpitations, or leg edema Respiratory: No shortness of breath, wheezing, cough GI: No abdominal pain, nausea, vomiting, diarrhea, constipation, melena, hematochezia Neuro: +seizure, +loc, +confusion. No headaches, weakness, paresthesias Skin: No rashes or lesions PMFSH Medical History Anxiety disorder, unspecified History of SIADH Hyponatremia Intellectual disability Seizure disorder Family History Other No family history of coronary artery disease Surgical History No pertinent past surgical history Social History Household Members: Other Household Members Other:: group homr Housing: Other Housing Other:: long-term Alcohol intake: never Patient Tobacco Use Status: Never used Tobacco e-Cigarette/Vaping Use: Never Used Advance Directives: Yes Advance Directives on File: Yes Advance Directives Date on File: 02/06/22 service: No Current occupational status: disabled Meds Allergies Allergy/AdvReac Type Severity Reaction Status Date / Time No Known Allergies Allergy Verified 12/31/21 15:26 [No Known Allergies*] Active Medications: Current Medications Acetaminophen (Acetaminophen 325 Mg Tablet) 650 mg PO Q6H PRN PRN Reason: Pain, Mild (Pain Scale 1-3) Docusate Sodium (Docusate Sodium 100 Mg Capsule) 100 mg PO BID PRN PRN Reason: Constipation Enoxaparin Sodium (Enoxaparin Sodium 40 Mg/0.4 Ml Syringe) 40 mg SUBCUT Q24H AUBREY Ondansetron HCl (Ondansetron Hcl 4 Mg/2 Ml Vial) 4 mg IVPUSH Q8H PRN PRN Reason: Nausea and Vomiting Pharmacy Consult (Consult Rx Perform Med Rec) 1 each MISCELLANE ONCE PRN PRN Reason: Consult order Sodium Chloride (0.9 % Sodium Chloride Flush 3 Ml Syringe) 3 ml IVFLUSH QSHIFT [facility] Home Medications Medication Instructions Recorded Confirmed Last Taken Type calcium carbonate 200 mg calcium 1,000 mg PO DAILY 12/31/21 04/08/22 04/08/22 History (500 mg) chewable tablet (Juan-Gest Antacid) cetirizine 10 mg tablet (Zyrtec) 10 mg PO DAILY PRN post nasal drip 12/31/21 04/08/22 02/23/22 History cholecalciferol (vitamin D3) 50 100 mcg PO DAILY 12/31/21 04/08/22 04/08/22 History mcg (2,000 unit) tablet (Vitamin D3) clonazepam 0.5 mg tablet 0.5 mg PO BID@1600,2000 12/31/21 04/08/22 04/07/22 History clonazepam 0.5 mg tablet 1 mg PO DAILY 12/31/21 04/08/22 04/08/22 History clonidine HCl 0.1 mg tablet 1 tab PO DAILY PRN 12/31/21 04/08/22 02/23/22 History AGITATION,AGGRESSIVENESS diclofenac sodium 1 % topical gel 1 g topical QID PRN Pain (Scale 12/31/21 04/08/22 02/23/22 History Score 4-6) divalproex 500 mg tablet,delayed 2 tab PO BID 12/31/21 04/08/22 04/08/22 History release docusate sodium 100 mg capsule 100 mg PO BID 12/31/21 04/08/22 04/08/22 History (Colace) lorazepam 2 mg tablet 1 tab PO TID PRN Seizures 12/31/21 04/08/22 02/23/22 History multivitamin 1 tab PO DAILY 12/31/21 04/08/22 04/08/22 History omega 6-moa-ckc-fish oil 1,000 mg 1 cap PO DAILY 12/31/21 04/08/22 04/08/22 History (120 mg-180 mg) capsule (Fish Oil) risperidone 0.5 mg tablet 1 tab PO BID 12/31/21 04/08/22 04/08/22 History acetaminophen 325 mg tablet 650 mg PO Q6H PRN Pain 04/08/22 04/08/22 Unknown History (Tylenol) loperamide 2 mg tablet (Imodium 2 mg PO Q4H PRN Loose Stool 04/08/22 04/08/22 Unknown History A-D) Physical Exam Vital Signs and Narrative: Vital Signs: Last Vital Signs Temp 98.4 F 04/08/22 14:17 Pulse 101 H 04/08/22 14:17 Resp 18 04/08/22 14:17 BP 118/76 04/08/22 14:17 Pulse Ox 100 04/08/22 14:17 O2 Del Method 04/08/22 14:17 O2 Flow Rate 3 04/08/22 14:17 BMI result Body Mass Index 22.1 Constitutional - Awake and drowsy, No apparent distress Eyes - PERRLA, EOMI Mouth- no evidence of tongue trauma Cardiovascular - S1S2, RRR, No edema Respiratory - Normal lung expansion, Normal respiratory effort, No respiratory distress, CTA bilaterally Gastrointestinal - NT / ND; +BS; No rebound or guarding Extremities - no calf tenderness bilaterally, no swelling Skin - Warm/Dry Neurological - Alert & oriented x3, slow to respond to questions. CN II-XII in tact, 5/5 strength BUE and BLE Psychological - Appropriate affect Results Labs CBC and Chem 7: 04/08/22 11:35 04/08/22 11:35 Labs: Laboratory Results - last 24 hr 04/08/22 04/08/22 04/08/22 10:24 11:06 11:35 MCV 97.7 MCH 32.9 MCHC 33.6 RDW 12.9 Plt Count 165 MPV 9.9 Immature Gran % (Auto) 0.5 H Neut % (Auto) 77.0 H Lymph % (Auto) 10.9 L [place] % (Auto) 11.5 H Eos % (Auto) 0.0 Baso % (Auto) 0.1 Lymph # (Auto) 0.8 L [place] # (Auto) 0.9 Eos # (Auto) 0.0 Baso # (Auto) 0.0 Abs Immat Gran (auto) 0.04 H Absolute Neuts (auto) 6.0 Absolute Nucleated RBC 0.000 Nucleated RBC % (auto) 0.0 PT INR Anion Gap Estim Creat Clear Calc Estimated GFR POC Glucose 86 Random Glucose Calcium Magnesium Total Bilirubin Direct Bilirubin AST ALT Alkaline Phosphatase Total Protein Albumin Urine Color Urine Appearance Urine pH Ur Specific [place] Urine Protein Urine Glucose (UA) Urine Ketones Urine Blood Urine Nitrite Ur Leukocyte Esterase Valproic Acid COVID-19 (JANICE) Negative COVID-19 Clin Com See Note 04/08/22 04/08/22 04/08/22 11:35 11:35 11:35 MCV MCH MCHC RDW Plt Count MPV Immature Gran % (Auto) Neut % (Auto) Lymph % (Auto) [place] % (Auto) Eos % (Auto) Baso % (Auto) Lymph # (Auto) [place] # (Auto) Eos # (Auto) Baso # (Auto) Abs Immat Gran (auto) Absolute Neuts (auto) Absolute Nucleated RBC Nucleated RBC % (auto) PT 11.9 INR 1.0 Anion Gap 16 Estim Creat Clear Calc 129.9 Estimated GFR > 60 POC Glucose Random Glucose 82 Calcium 9.4 D Magnesium 2.1 Total Bilirubin 0.4 Direct Bilirubin 0.2 AST 38 H D ALT 22 Alkaline Phosphatase 40 Total Protein 7.1 Albumin 4.5 Urine Color Urine Appearance Urine pH Ur Specific [place] Urine Protein Urine Glucose (UA) Urine Ketones Urine Blood Urine Nitrite Ur Leukocyte Esterase Valproic Acid 123.1 H* COVID-19 (JNAICE) COVID-19 Clin Com 04/08/22 12:40 MCV MCH MCHC RDW Plt Count MPV Immature Gran % (Auto) Neut % (Auto) Lymph % (Auto) [place] % (Auto) Eos % (Auto) Baso % (Auto) Lymph # (Auto) [place] # (Auto) Eos # (Auto) Baso # (Auto) Abs Immat Gran (auto) Absolute Neuts (auto) Absolute Nucleated RBC Nucleated RBC % (auto) PT INR Anion Gap Estim Creat Clear Calc Estimated GFR POC Glucose Random Glucose Calcium Magnesium Total Bilirubin Direct Bilirubin AST ALT Alkaline Phosphatase Total Protein Albumin Urine Color Yellow Urine Appearance Clear Urine pH 7.5 Ur Specific [place] 1.020 Urine Protein Trace Urine Glucose (UA) Negative Urine Ketones 15 Urine Blood Negative Urine Nitrite Negative Ur Leukocyte Esterase Negative Valproic Acid COVID-19 (JANICE) COVID-19 Clin Com Assessment and Plan (1) Breakthrough seizure: Status: Acute (2) Epileptic seizure: Qualifiers: Epilepsy type: unspecified Intractability: not intractable Status epilepticus: without status epilepticus Qualified Code(s): G40.909 - Epilepsy, unspecified, not intractable, without status epilepticus Status: Acute Plan 47 year old female with history longstanding seizure disorder following with Dr. Holland and cognitive delay following anoxic brain injury at brought to be observed for breakthrough seizures. 1-Chronic epilepsy with breakthrough seizure -Seems to have been induced by missed medication dose though did discuss with RN from long-term and seems unclear -Given 4mg versed, loaded with keppra, and 25mg lamotrigine in ed -Follows outpt with Dr. Holland. Neurology consulted -Continue home depakote and keppa. -Versed prn for breakthrough seizures -Seizure precautions -Electrolytes normal including sodium 137 -Father expresses concerns about long-term staff education on medication administration. Discussed with staff at discharge 2- cognitive delay/behavioral disturbance - continue chronic medications [risperidone, clonidine] DVT prophylaxis- lovenox Full code Quality Stroke Does the patient have a stroke diagnosis?: No VTE Prior VTE?: No VTE Risk Level:: Medical - moderate - high VTE Device Contraindication: Treatment Not Indicated VTE Drug Contraindication: N/A - Med Ordered
--- NOTE | 2022-04-08 15:01 | PHA.MEDREC ---
Pharmacy Consult ? Medication Reconciliation Pharmacy has completed the medication reconciliation. Pt's father at bedside wh ostated he did not get his keprra today; pt did not he took everything else today at 8 am. Pt had medication list in chart from facility.
--- NOTE | 2022-04-08 16:28 | PC.NURSE ---
Father reports patient havinf seizure activity with episodes of incontinence .patient changed . when this nurse enters room patient alert and awake . able to tell me his legs are cramping . LOIS Le made aware . Patient has history of absence seizures previously noted . no new orderers . patient and father aware o plan of care .
--- NOTE | 2022-04-08 16:33 | PM.EVENT ---
Documented by User: LOIS Joel 04/08/22 16:37 Event Note Date of Service: 04/08/22 Event Note: Pt has had several episodes about 1 minute long where patient fond staring with eyes fixed. No clenching, tonic/clonic movements. Patient is able to speak during episodes. No hypoxia. Mild tachycardia around 110 that improves. Unlikely a seizure as patient is responsive and verbal. Likely behavioral. Has prn versed ordered. Discussed with Dr. Fortune. Documented by User: Chantel Fortune MD 04/09/22 14:11 Event Note Date of Service: 04/09/22
[2022-04-08] MEDS: Enoxaparin Sodium 40 MG/0.4 ML SYRINGE SUBCUT (16:35)
[2022-04-08] MEDS: clonazePAM 0.5 MG TABLET PO ×2 (16:36→19:46)
[2022-04-08] MEDS: 0.9 % Sodium Chloride Flush 3 ML SYRINGE IVFLUSH (16:36)
[2022-04-08] MEDS: Acetaminophen 325 MG TABLET 650 MG PO (19:51)
[2022-04-08] MEDS: Docusate Sodium 100 MG CAPSULE PO (20:34)
[2022-04-08] MEDS: levETIRAcetam 500 MG TABLET 1500 MG PO (20:34)
[2022-04-08] MEDS: Divalproex Sodium 500 MG TABLET.DR 1000 MG PO (20:35)
[2022-04-08] MEDS: risperiDONE 0.5 MG TABLET PO (20:35)
--- NOTE | 2022-04-09 02:47 | PC.NURSE ---
not further seizure activity noted. side rales padded, suction at bedside. pt on monitor.
[2022-04-09 03:27] VITALS: TEMP 36.8
[2022-04-09 05:05] VITALS: BP 129/82; PULSE 87; RESP 16; O2SAT 99
[2022-04-09 05:48] VITALS: BP 137/86; PULSE 76; RESP 11; TEMP 36.9; O2SAT 100
[2022-04-09] MEDS: Divalproex Sodium 500 MG TABLET.DR 1000 MG PO ×2 (07:28→20:43)
[2022-04-09] MEDS: Multivitamin TABLET 1 TAB PO (07:28)
[2022-04-09] MEDS: Docusate Sodium 100 MG CAPSULE PO ×2 (07:29→20:44)
[2022-04-09] MEDS: risperiDONE 0.5 MG TABLET PO ×2 (07:29→20:44)
[2022-04-09] MEDS: clonazePAM 1 MG TABLET PO (07:29)
[2022-04-09] MEDS: Cholecalciferol (Vitamin D3) 25 MCG TABLET 100 MCG PO (07:29)
[2022-04-09] MEDS: 0.9 % Sodium Chloride Flush 3 ML SYRINGE IVFLUSH ×2 (07:32→18:23)
[2022-04-09] MEDS: levETIRAcetam 500 MG TABLET 1500 MG PO ×2 (07:46→20:44)
--- NOTE | 2022-04-09 10:16 | PC.NURSE ---
nad, alert, pleasant, father at bedside, sr on monitor, skin wpd, all morning meds given
--- NOTE | 2022-04-09 12:05 | MHC.CM.PN ---
CHIKIS ZHENG CM MET WITH PATIENT AND FATHER , LIVES IN [facility]. NO DME AT HOME. HAS HCP ON FILE, COVID VAX X 3 WITH [facility]. PCP IS DR. COLINDRES AT THE [facility]. CM SPOKE WITH [facility] NURSE KIM SERRANO ([phone]) WHO WILL BE DROPPING OFF A FORM TO BE FILLED OUT FOR [facility] FOR MEDICATION RECONCILIATION BY PROVIDER BEFORE DC. [facility] WILL TRANSPORT AT [place]
--- NOTE | 2022-04-09 12:22 | PC.NURSE ---
walked pt with 1 assist using dulce maria belt. pt tolerated well, ambulated around main ed twice. back to bed without issue.
--- NOTE | 2022-04-09 14:13 | HO.PM.IMPN ---
Subjective Subjective Date of Service: 04/09/22 Interval History: the patient was seen and evaluated this morning Laying in bed, feels comfortable home overall No seizures reported overnight No reported other overnight events. Systemic review: No fever, chills or weakness No chest pain, palpitation No shortness of breath or coughing No abdominal pain, nausea or vomiting No urinary symptoms No any rash or wounds Physical Exam Vital Signs: Vital Signs: Last Vital Signs Temp 98.4 F 04/09/22 05:48 Pulse 76 04/09/22 05:48 Resp 11 L 04/09/22 05:48 BP 137/86 04/09/22 05:48 Pulse Ox 100 04/09/22 05:48 O2 Del Method 04/09/22 05:48 O2 Flow Rate 3 04/09/22 05:48 BMI result Body Mass Index 22.1 Const: Other: Constitutional : Alert, interactive, not in distress Neck : Normal inspection, Supple Cardiovascular : RRR, no JVP, no lower extremity edema Respiratory : fair bilateral air entry, no crackles, wheezes or rhonchi Gastrointestinal: soft, lax, Normal bowel sounds, Non tender Skin : Warm, Dry Neurological : Alert & oriented x3, No focal deficit Objective Data Active Medications Acetaminophen (Acetaminophen 325 Mg Tablet) 650 mg PO Q6H PRN PRN Reason: Pain, Mild (Pain Scale 1-3) Last Admin: 04/08/22 19:51 Dose: 650 mg Documented By: SAHRA Calcium Carbonate (Calcium Carbonate 500 Mg Tablet) 1,000 mg PO DAILY [facility] Last Admin: 04/09/22 07:46 Dose: 1,000 mg Documented By: FANNY Clonazepam (Clonazepam 0.5 Mg Tablet) 0.5 mg PO BID@1600,2000 [facility] Last Admin: 04/08/22 19:46 Dose: 0.5 mg Documented By: SAHRA Clonazepam (Clonazepam 1 Mg Tablet) 1 mg PO DAILY [facility] Last Admin: 04/09/22 07:29 Dose: 1 mg Documented By: FANNY Clonidine HCl (Clonidine Hcl 0.1 Mg Tablet) 0.1 mg PO DAILY PRN; Protocol PRN Reason: AGITATION,AGGRESSIVENESS Divalproex Sodium (Divalproex Sodium 500 Mg Tablet.) 1,000 mg PO BID [facility] Last Admin: 04/09/22 07:28 Dose: 1,000 mg Documented By: FANNY Docusate Sodium (Docusate Sodium 100 Mg Capsule) 100 mg PO BID PRN PRN Reason: Constipation Docusate Sodium (Docusate Sodium 100 Mg Capsule) 100 mg PO BID [facility] Last Admin: 04/09/22 07:29 Dose: 100 mg Documented By: FANNY Enoxaparin Sodium (Enoxaparin Sodium 40 Mg/0.4 Ml Syringe) 40 mg SUBCUT Q24H [facility] Last Admin: 04/08/22 16:35 Dose: 40 mg Documented By: LEWIS Levetiracetam (Levetiracetam 500 Mg Tablet) 1,500 mg PO BID [facility] Last Admin: 04/09/22 07:46 Dose: 1,500 mg Documented By: FANNY Loperamide HCl (Loperamide Hcl 2 Mg Capsule) 2 mg PO Q4H PRN PRN Reason: Loose Stool Loratadine (Loratadine 10 Mg Tablet) 10 mg PO DAILY PRN PRN Reason: post nasal drip Midazolam HCl (Midazolam Hcl/Pf 2 Mg/2 Ml Vial) 2 mg IVPUSH Q15M PRN PRN Reason: Seizures Multivitamins/Vitamin C (Multivitamin Tablet) 1 tab PO DAILY [facility] Last Admin: 04/09/22 07:28 Dose: 1 tab Documented By: FANNY Ondansetron HCl (Ondansetron Hcl 4 Mg/2 Ml Vial) 4 mg IVPUSH Q8H PRN PRN Reason: Nausea and Vomiting Pharmacy Consult (Consult Rx Perform Med Rec) 1 each MISCELLANE ONCE PRN PRN Reason: Consult order Risperidone (Risperidone 0.5 Mg Tablet) 0.5 mg PO BID [facility] Last Admin: 04/09/22 07:29 Dose: 0.5 mg Documented By: FANNY Sodium Chloride (0.9 % Sodium Chloride Flush 3 Ml Syringe) 3 ml IVFLUSH QSHIFT [facility] Last Admin: 04/09/22 07:32 Dose: 3 ml Documented By: FANNY Vitamin D (Cholecalciferol (Vitamin D3) 25 Mcg Tablet) 100 mcg PO DAILY [facility] Last Admin: 04/09/22 07:29 Dose: 100 mcg Documented By: FANNY Labs CBC & Chem 7: 04/08/22 11:35 04/08/22 11:35 Assessment and Plan (1) Breakthrough seizure: Status: Acute (2) Epileptic seizure: Status: Acute Plan 47 year old female with history longstanding seizure disorder following with Dr. Holland and cognitive delay following anoxic brain injury at brought to be observed for breakthrough seizures. # Chronic epilepsy with breakthrough seizure secondary to missing medication no recurrent episodes of over night neurology input appreciated Continue home depakote and keppa. Versed prn for breakthrough seizures Seizure precautions patient expresses concerns about long term staff availability. He does not feel safe going back today as they do not have enough staff. He reports that by tomorrow the showed have 8 covered. Will check with bilingual patient support caseworker. # cognitive delay/behavioral disturbance continue chronic medications [risperidone, clonidine] DVT prophylaxis lovenox Full code Quality Stroke Does the patient have a stroke diagnosis?: No VTE Prior VTE?: No VTE Risk Level:: Medical - moderate - high VTE Device Contraindication: Treatment Not Indicated VTE Drug Contraindication: N/A - Med Ordered
[2022-04-09] MEDS: Enoxaparin Sodium 40 MG/0.4 ML SYRINGE SUBCUT (18:22)
[2022-04-09] MEDS: clonazePAM 0.5 MG TABLET PO ×2 (18:22→20:43)
--- NOTE | 2022-04-09 22:10 | PC.NURSE ---
RN-RN report given to ED overflow.
[2022-04-09 23:45] VITALS: BP 133/85; PULSE 82; RESP 14; TEMP 36.9; O2SAT 99
[2022-04-10] MEDS: Divalproex Sodium 500 MG TABLET.DR 1000 MG PO (08:11)
[2022-04-10] MEDS: Multivitamin TABLET 1 TAB PO (08:11)
[2022-04-10] MEDS: Docusate Sodium 100 MG CAPSULE PO (08:12)
[2022-04-10] MEDS: Cholecalciferol (Vitamin D3) 25 MCG TABLET 100 MCG PO (08:12)
[2022-04-10] MEDS: 0.9 % Sodium Chloride Flush 3 ML SYRINGE IVFLUSH ×2 (08:12)
[2022-04-10] MEDS: clonazePAM 1 MG TABLET PO (08:12)
[2022-04-10 08:21] VITALS: BP 127/86; PULSE 84; RESP 16; TEMP 36.3; O2SAT 98
[2022-04-10] MEDS: levETIRAcetam 500 MG TABLET 1500 MG PO (09:10)
[2022-04-10] MEDS: risperiDONE 0.5 MG TABLET PO (09:10)
--- NOTE | 2022-04-10 10:27 | P.DS_ITS ---
DS: Providers Provider Date of Service: 04/10/22 Date of admission: 04/08/22 14:51 Primary care physician: Nonstaff Physician Consults: 04/08/22 12:38 Consult to Neurology Routine Consulting Provider: [facility] Reason for consultation: seizures Has provider been notified: Yes DS: Diagnosis Discharge Diagnosis (1) Breakthrough seizure: Status: Acute (2) Epileptic seizure: Status: Acute DS: Summary Hospital Course Hospital Course: Admission note HPI 47 year old female with history longstanding seizure disorder followingwith Dr. Holland and cognitive delay following anoxic brain injury at brought to the ED for evaluation of prolonged seziure >3min with posta ictal phase. Patient had two seizures this morning (generalized tonic clonic) without return to baseline with confusion and aggitation noted after seizure. Per protocol, due to prolonged seizure, pt transferred to hospital via ems. There was no trauma reported or tongue biting. Denies recent illness. Recently discharged one month ago for seizures with status epilepticus. 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 Electrolytes in ED today normal. Now on depakote 1000mg BID and keppra 1500mg BID. Pt states he was not given doses of keppra this am or last night. However, [facility] and there is not documentation of patient missing doses at that time, but possibly wednesday morning dose of keppra missed. Father, who is guardian, and present on exam expresses concerns about [facility] staff education on medication administration. While in the ED, patient experienced another 45 second episode GTC and was given 4mg IV versed and neurology consulted. Also given 25mg lamotrigine and thiamine. Plan to discharge home with increased dose depakote but patient had addl 60 second seizure and decision to admit was made. Hospital course The patient was admitted for observation of breakthrough seizures. Believed to be wrong doses of his Keppra. Received Versed with good response as he was loaded with Keppra. Noted to develop another seizure while waiting in the emergency to be discharged. Evaluated by Neurology who recommended to continue Keppra and valproic acid. No further seizures noticed. Updated medication list on his discharge summary. To follow with Neurology as outpatient as scheduled. Time Spent with Patient Time attestation: Total time spent providing and/or coordinating discharge services: Discharge coordination time: Less than 30 minutes Quality: Safe Use of Opioids Does Pt have an Active Cancer Diagnosis on the Problem List?: No Quality: Stroke Does the patient have a stroke diagnosis?: No Physical Exam Vital Signs: Vital Signs: Last Vital Signs Temp 97.4 F 04/10/22 08:21 Pulse 84 04/10/22 08:21 Resp 16 04/10/22 08:21 BP 127/86 04/10/22 08:21 Pulse Ox 98 04/10/22 08:21 O2 Del Method 04/10/22 08:21 O2 Flow Rate 3 04/09/22 05:48 BMI result Body Mass Index 22.1 Const: Other: Constitutional : Alert, interactive, not in distress Neck : Normal inspection, Supple Cardiovascular : RRR, no JVP, no lower extremity edema Respiratory : fair bilateral air entry, no crackles, wheezes or rhonchi Gastrointestinal: soft, lax, Normal bowel sounds, Non tender Skin : Warm, Dry Neurological : Alert & oriented x3, No focal deficit, good strain Discharge Plan Discharge Patient Disposition: Xfer Other Discharge Diagnosis: Breakthrough seizure Referrals: Physician,Nonstaff [Primary Care Provider] - 1 Week Discharge Medications: Continued multivitamin Tablet 1 tab PO DAILY clonidine HCl 0.1 mg tablet 1 tab PO DAILY PRN (Reason: AGITATION,AGGRESSIVENESS) cetirizine [Zyrtec] 10 mg Tablet 10 mg PO DAILY PRN (Reason: post nasal drip) clonazepam 0.5 mg tablet 0.5 mg PO BID@1600,2000 clonazepam 0.5 mg tablet 1 mg PO DAILY divalproex 500 mg tablet,delayed release (DR/EC) 2 tab PO BID lorazepam 2 mg tablet 1 tab PO TID MDD 3 PRN (Reason: Seizures) calcium carbonate [Juan-Gest Antacid] 200 mg calcium (500 mg) Tablet,Chewable 1,000 mg PO DAILY docusate sodium [Colace] 100 mg Capsule 100 mg PO BID risperidone 0.5 mg tablet 1 tab PO BID diclofenac sodium 1 % Gel 1 g TOPICAL QID PRN (Reason: Pain (Scale Score 4-6)) cholecalciferol (vitamin D3) [Vitamin D3] 50 mcg (2,000 unit) Tablet 100 mcg PO DAILY omega 7-ikq-zvd-fish oil [Fish Oil] 1,000 mg (120 mg-180 mg) Capsule 1 cap PO DAILY acetaminophen [Tylenol] 325 mg Tablet 650 mg PO Q6H PRN (Reason: Pain) loperamide [Imodium A-D] 2 mg Tablet 2 mg PO Q4H PRN (Reason: Loose Stool) Rx Instructions: administer after each loose stool until symptoms controlled; do not exceed 8 mg per 24 hrs levetiracetam 500 mg Tablet 1,500 mg PO BID Qty: 180 0RF Discharge Orders: Discharge Order (Routine); Ordered 04/10/22 Ordered By: Chantel Fortune Diet: Advance to usual diet Activity on Discharge: As tolerated Stand Alone Forms: Patient Portal Discharge page Care Plan Goals: Read below Health Concerns: Read below Plan of Treatment: Read below Assessment: You were admitted to the hospital for observation after breakthrough seizures. Believed to be secondary to missing doses of Keppra. Evaluated by neurologist who recommended to continue with Keppra and valproic acid. Continue your medications as prescribed To follow-up with neurology as scheduled Patient Instructions: Recurrent Seizures in Adults (ED)
--- NOTE | 2022-04-10 12:11 | MHC.CM.PN ---
PT MEDICALLY CLEARED FOR D/C BACK TO [facility], CM SPOKE W/PT'S GH NURSE KIM SERRANO AT [phone] AND HE REPORTS HE WILL ARRANGE FOR STAFF TO DEVELOPMENT ANALYST PT AT 1PM, ORDERS SIGNED BY HOSPITALIST AND PT'S RN AWARE OF PLAN.
== END 2022-04-10 15:40 | disposition other institution (70) ==
LOC: HO.ED 13:26 → HO.EDOVER 14:59
PROVIDERS: Admitting Provider Physician Assistant; Emergency Provider Emergency Medicine; PCP Physician Assistant; Visit Provider Student in an Organized Health Care Education/Training Program
DX: G40.919 Epilepsy, unspecified, intractable, without status epilepticus (principal); G93.49 Other encephalopathy; Z79.899 Other long term (current) drug therapy; Z20.822 Contact with and (suspected) exposure to COVID-19
CPT/HCPCS: 36415; 80048; 80076; 80164; 81003; 82947; 83735; 85025; 85610; 87635; 93005; 96374; 96375; 96376; 99219; 99285; J1650; J1953; J2250; J2405; J3411

== ENCOUNTER 2022-06-12 17:54 | Inpatient (IN) | payer MEDICARE, MEDICAID, SELFPAY ==
--- NOTE | ~2022-06-12 | XR_ITS ---
EXAMINATION: XR CHEST CLINICAL INFORMATION: Evaluate for pneumonia COMPARISON: Chest x-ray on 12/31/2021 TECHNIQUE: Frontal view of the chest was obtained. FINDINGS: The cardiac silhouette is normal. There is mild diffuse bronchial wall thickening. There are no areas of consolidation. There are no pleural effusions or pneumothoraces. The bones and soft tissues are unremarkable for the patient's age. XR/XR chest 1V IMPRESSION: Bronchial wall thickening may be infectious and/or inflammatory in etiology.
--- NOTE | ~2022-06-12 | CT_ITS ---
EXAMINATION: CT HEAD WITHOUT CONTRAST CLINICAL INFORMATION: Seizure. COMPARISON: CT head 02/27/2022. CT head 06/13/2009 TECHNIQUE: Contiguous axial imaging was performed from the skull base to vertex without intravenous administration of contrast. This CT examination was performed using dose optimization techniques as appropriate, variously including the following: *Automated exposure control *Adjustment of mA and/or kV according to patient size (this includes techniques or standardized protocols for targeted exams where dose is matched to indication/reason for exam; i.e. extremities or head) *Use of iterative reconstruction technique DLP: 577 mGy-cm FINDINGS: The posterior periventricular white matter is present adjacent to the atrium of the left lateral ventricle and relative ex vacuo dilatation of the atrium of the left lateral ventricle is noted. Focal sulcal prominence is present over the left parietal lobe. Mild parasagittal sulcal prominence and possible subcortical hypoattenuation is present in the posterior right parietal lobe. No intracranial hemorrhage, tumors or acute infarcts are noted. The body and splenium of the corpus callosum are not well visualized. The orbits and globes are normal in appearance. Lobulated density is present in the alveolar recesses of the left right maxillary sinuses may represent multifocal mucosal retention cyst. No mastoid or middle ear cavity effusions identified. CT/CT head/brain wo IV con IMPRESSION: *No acute intracranial abnormalities. *Unchanged biparietal subcortical and possible cortical encephalomalacia with findings most pronounced in the left. Findings are unchanged compared with 06/13/2009. Findings may represent chronic watershed territory infarcts or possible congenital periventricular leukomalacia. As clinically indicated, findings could be further evaluated with MRI of the brain. 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 The posterior body and splenium of the corpus callosum are not well visualized.
[2022-06-12 18:14] VITALS: BP 148/108; BP 152/104; PULSE 74; PULSE 89; RESP 18; O2SAT 96; O2SAT 97; BMI 25.9
--- NOTE | 2022-06-12 18:36 | ECG_ITS ---
Test Reason : SEIZURES Blood Pressure : / mmHG Vent. Rate : 094 BPM Atrial Rate : 094 BPM P-R Int : 120 ms QRS Dur : 076 ms QT Int : 324 ms P-R-T Axes : 029 017 042 degrees QTc Int : 405 ms Normal sinus rhythm Normal ECG When compared with ECG of 08-APR-2022 10:38, No significant change was found Referred By: Nirmala Kc Electronically Signed By:LEMUEL RIOJAS MD
--- NOTE | 2022-06-12 19:01 | PC.NURSE ---
While I was getting change of shift report on this pt, family members came out to report that pt had a seizure. Seizure lasted approx 20 seconds and pt is alert and oriented at this time.
[2022-06-12] MEDS: 0.9 % Sodium Chloride 1,000 ML 999 ML IVCONT (19:29)
[2022-06-12] MEDS: levETIRAcetam in NaCl (iso-os) 1,500 MG/100 ML PIGGYBACK 400 MG IV (19:29)
[2022-06-12 19:36] LABS: MANUAL DIFF FLAG NO
[2022-06-12 19:39] LABS: Basophils Percent Auto 0.3 % (0-2); Hematocrit 45.2 % (42.0-52.0); Imm Gran Abs Auto 0.03 X10*3/uL (0.00-0.03); Imm Gran Pct Auto 0.4 % (0.0-0.4); Lymphocytes Absolute Auto 1.5 X10*3/uL (1.2-4.9); Lymphocytes Percent Auto 22.2 % (20-40); Mean Corpuscular HGB Conc 33.2 g/dl (31.0-36.0); Mean Corpuscular Hemoglobin 31.8 pg (27.0-33.0); Mean Platelet Volume 10.2 fL (9.4-12.4); Monocytes Absolute Auto 0.7 X10*3/uL (0.1-1.2); Monocytes Percent Auto 10.6 % (2-11); Neutrophils Absolute Auto 4.5 x10*3/uL (2.0-8.3); Neutrophils Percent Auto 66.5 % (45-73); Platelet Count 187 X10*3/uL (160-400); Red Blood Count 4.71 X10*6/uL (4.60-5.80); Red Cell Distribution Width 13.1 % (11.0-16.0); White Blood Count 6.8 X10*3/uL (4.8-10.8)
[2022-06-12 19:59] LABS: Alanine Aminotransferase 45 U/L (0-40); Albumin Level 4.5 g/dL (3.5-5.0); Alkaline Phosphatase 39 U/L (39-117); Anion Gap 11 (12-20); Aspartate Amino Transferase 42 U/L (5-37); Bilirubin Direct < 0.2 mg/dL (0.0-0.5); Bilirubin Total 0.3 mg/dL (0.0-1.0); Blood Urea Nitrogen 11 mg/dL (9-16); Calcium 9.8 mg/dL (8.4-10.2); Carbon Dioxide 27 mmol/L (22-29); Chloride 107 mmol/L (96-108); Creatinine Clr Calc Pharmacy 106.7; Estimated Glomerular Filt Rate > 60; Glucose Random 105 mg/dL (60-115); Potassium 4.2 mmol/L (3.3-5.1); Sodium 141 mmol/L (135-145); Total Protein 7.1 g/dL (6.5-8.0)
[2022-06-12 20:00] LABS: Lactic Acid 2.7 mmol/L (0.5-2.0)
[2022-06-12 20:05] LABS: Troponin-I High Sensitivity < 3.5 ng/L (<3.5-35.0)
[2022-06-12 20:06] LABS: COVID-19 Test Negative (Negative); IDNOW Serial# 55D5AD1C
--- NOTE | 2022-06-12 20:06 | ED_ITS ---
HPI - Seizure General Chief Complaint: Seizure Stated Complaint: Seizures Time Seen by Provider: 06/12/22 18:12 Source: patient and family Mode of arrival: EMS Limitations: other (Anoxic brain injury) History of Present Illness HPI Narrative: Patient comes to the emergency room via ambulance, accompanied by his paternal aunt. History has been obtained by the patient's aunt and partially by the patient, an over the phone by the patient's father. Patient has history of epilepsy. Currently being treated with carbamazepine and with Keppra. Patient states that he is compliant with his medication and his father states the same. Today, patient had 6 seizures prior to arrival which were witnessed by the custodial staff. Approximately 1 month ago, patient was hospitalized for multiple seizures/status epilepticus. Patient was taking Tegretol, patient had hyponatremia and it was discontinued by neurology. Patient has been currently taking Keppra. However, there is a discrepancy in the patient's pharmacy prescription versus the custodial distal medications. According to our records/pharmacy records, patient is supposed to be taking Depakote 500 mg, however, the patient's custodial distal medications shows that patient is taking Keppra and carbamazepine 400 mg b.i.d.. Patient states that he feels well, states that all the seizures happened in bed while he was being watched, patient did not hit his head, did not have any injuries. Patient did not bite his tongue or had any urinary incontinence Seizure History: Yes Related Data Home Medications Medication Instructions Recorded Confirmed calcium carbonate 200 mg calcium 1,000 mg PO DAILY 12/31/21 04/08/22 (500 mg) chewable tablet (Juan-Gest Antacid) cetirizine 10 mg tablet (Zyrtec) 10 mg PO DAILY PRN post nasal drip 12/31/21 04/08/22 cholecalciferol (vitamin D3) 50 100 mcg PO DAILY 12/31/21 04/08/22 mcg (2,000 unit) tablet (Vitamin D3) clonazepam 0.5 mg tablet 0.5 mg PO BID@1600,2000 12/31/21 06/12/22 diclofenac sodium 1 % topical gel 1 g topical TID PRN Pain (Scale 12/31/21 06/12/22 Score 4-6) divalproex 500 mg tablet,delayed 2 tab PO BID 12/31/21 04/08/22 release docusate sodium 100 mg capsule 100 mg PO BID 12/31/21 06/12/22 (Colace) multivitamin 1 tab PO DAILY 12/31/21 06/12/22 omega 9-ypp-gxg-fish oil 1,000 mg 1 cap PO DAILY 12/31/21 06/12/22 (120 mg-180 mg) capsule (Fish Oil) risperidone 0.5 mg tablet 1 tab PO BID 12/31/21 04/08/22 acetaminophen 325 mg tablet 650 mg PO Q6H PRN Pain 04/08/22 04/08/22 (Tylenol) loperamide 2 mg tablet (Imodium 2 mg PO Q4H PRN Loose Stool 04/08/22 06/12/22 A-D) benzocaine 15 mg-menthol 2.6 mg 1 richard PO Q2H PRN Sore Throat 06/12/22 06/12/22 lozenges (Cepacol Sore Throat (benzocaine-menthol)) carbamazepine 400 mg mg PO 06/12/22 tablet,extended release,12 hr clonazepam 1 mg tablet 1 mg PO DAILY 06/12/22 06/12/22 food supplemt, lactose-reduced 1 ea PO DAILY 06/12/22 06/12/22 (Ensure oral liquid) lorazepam 2 mg tablet (Ativan) 2 mg PO DAILY PRN Seizures 06/12/22 06/12/22 Previous Rx's Medication Instructions Recorded levetiracetam 500 mg tablet 1,500 mg PO BID #180 tabs 03/04/22 Allergies Allergy/AdvReac Type Severity Reaction Status Date / Time No Known Allergies Allergy Verified 12/31/21 15:26 [No Known Allergies*] Review of Systems Review of Systems: Constitutional : No Weight loss, No Fever, No Chills, No Night Sweats, No Fatigue, No Malaise ENT/Mouth : No Hearing loss, No Ear Pain, No Nasal Congestion, No Sinus Pain, No Hoarseness, No sore throat, No Rhinorrhea, No Swallowing Difficulty Eyes: No Eye Pain, No Swelling, No Redness, No Foreign Body, No Discharge, No Vision Changes Cardiovascular : No Chest Pain, No SOB, No Dyspnea on Exertion, No Orthopnea, No Edema, No Palpitations Respiratory : No Cough, No Sputum, No Wheezing, No Smoke Exposure, No Dyspnea Gastrointestinal : No Nausea, No Vomiting, No Diarrhea, No Constipation, No abdominal Pain, No Hematochezia, No Melena Genitourinary : no irregular bleeding, No Dysuria, No Urinary Frequency, No Hematuria, No Urinary Incontinence, No Urgency, No Flank Pain, No Urinary Flow Changes, No Hesitancy Musculoskeletal : No joint pain, No Myalgias, No Joint Swelling Skin : No Skin Lesions, No rash Neuro : Complaining of multiple seizures today, No Weakness, No Numbness, No Paresthesias, No Loss of Consciousness, No Dizziness, No Headache Psych : No Anxiety/Panic, No Depression, No SI/HI/AH/VH, No Social Issues, Heme/Lymph: No Bruising, No Bleeding,No Lymphadenopathy Endocrine : No Polyuria, No Polydipsia, No Temperature Intolerance [facility] Past Medical History Medical History (Updated 06/12/22 @ 21:08 by Jacqueline Lynn MD) Anxiety disorder, unspecified History of SIADH Hyponatremia Intellectual disability Seizure disorder Surgical History No pertinent past surgical history Family History Family History Other No family history of coronary artery disease Social History Social History Household Members: Other Household Members Other:: group homr Housing: Other Housing Other:: custodial Alcohol intake: never Patient Tobacco Use Status: Never used Tobacco e-Cigarette/Vaping Use: Never Used Advance Directives: Yes Advance Directives on File: Yes Advance Directives Date on File: 02/06/22 service: No Current occupational status: disabled Physical Exam Vital Signs: Vital Signs: Last Vital Signs Pulse 89 06/12/22 18:14 Resp 18 06/12/22 18:14 BP 148/108 H 06/12/22 18:14 Pulse Ox 96 06/12/22 18:14 O2 Del Method 06/12/22 18:14 BMI result Body Mass Index 25.9 Const: Other: Appearance: Alert. Oriented X3. No acute distress. Eyes: Pupils equal, round and reactive to light. ENT: Pharynx normal. No tongue injuries/lacerations Neck: Normal inspection. Neck supple. No lymph nodes noted. No crepitus CVS: Normal heart rate and rhythm. Pulses normal. Normal S1 and S2 Respiratory: No respiratory distress. Breath sounds normal. No Wheezing. No rales Abdomen: Soft and nontender. No rigidity. No distention. Skin: Skin warm and dry. Normal skin color. Normal skin turgor. Extremities: No lower extremity edema. No Lacerations. No Rash Neuro: Oriented X 3. No motor deficit. No sensory deficit. Moving all extremities. No slurred speech. CN 2 through 12 grossly intact Psych: calm, cooperative, normal affect Course Course Course Narrative: I was informed by the patient's nurse the patient has had 2 seizures in the emergency room, lasting approximately 20-40 seconds. However, the patient does not seem postictal. It is possible that there may be a behavioral component as well. Patient has already been started on Keppra IV. We are waiting for Neurology to call back. Neurology has been paged multiple times, no response yet at this time, 20:44. Patient is stable, patient was giving a loading dose of Keppra. As mentioned above, there is a discrepancy in the patient's medication from the pharmacy versus custodial. Patient has been having also behavioral issues, trying to rip IV out, kicking staff. Patient was given 1 dose of IV Versed 1 mg. I discussed the patient with Dr. Lynn, when we get in touch with Neurology and if they have any further recommendations, we will go ahead and update Dr. Lynn Of note, patient's lactic acid elevated likely secondary to seizure activity, sepsis not suspected Medications Administered Generic Name Dose Route Start Last Admin Trade Name Freq PRN Reason Stop Dose Admin Divalproex Sodium 1,000 mg 06/12/22 21:05 06/12/22 21:17 Divalproex Sodium 500 Mg Tablet. PO 1,000 mg BID AUBREY Administration Enoxaparin Sodium 40 mg 06/12/22 20:45 06/12/22 20:54 Enoxaparin Sodium 40 Mg/0.4 Ml Syringe SUBCUT 40 mg Q24H AUBREY Administration Discontinued Medications Generic Name Dose Route Start Last Admin Trade Name Freq PRN Reason Stop Dose Admin Levetiracetam 1,500 mg in 100 mls @ 400 mls/hr 06/12/22 18:33 06/12/22 20:58 Keppra IV 06/12/22 18:47 Infused ONCE ONE Infusion Sodium Chloride 1,000 mls @ 999 mls/hr 06/12/22 18:35 06/12/22 19:29 Ns IVCONT 06/12/22 19:35 999 mls/hr .Q1H1M ONE Administration Midazolam HCl 1 mg 06/12/22 20:43 06/12/22 20:54 Midazolam Hcl/Pf 2 Mg/2 Ml Vial IVPUSH 06/12/22 20:44 1 mg ONCE ONE Administration Medical Decision Making Medical Decision Making Differential Diagnoses: Differential diagnosis (Epileptic seizure, psychogenic seizure) Consideration of admission/observation: Consideration of Admission/Observation (It is possible that patient may have a combination of seizures versus psychogenic seizures, patient will be admitted for observation and Neurology consult.) Discussion of management with other physician/healthcare provider/other source (e.g., hospitalist, media consultant outside sales, behavioral health): Discussion w/other physician/healthcare provider (I attempted to get in touch with Neurology, however we had had no call back yet. 21:20, I was able to get in touch with Dr. Holland, at this time, no further medications to be given. Patient is stable. Admit the patient under observation status.) Management of the patient was discussed with: Hospitalist (I discussed the patient with our hospitalist Dr. Lynn, patient being admitted.) My interpretation is Lab Attestation: I reviewed the patient's lab results. (Lactic acid elevation likely secondary to seizures) Independent historian (e.g., spouse, EMS, friend): Independent historian (e.g., spouse, EMS, friend) (Patient's paternal aunt and patient's father who is the healthcare proxy, conversation over the phone with the father) Non-ED record review: Review of External (Non-ED) Record (Reviewed previous notes from neurology and hospitalist) Tests considered but not performed: Tests Considered But Not Performed (CT scan of the head was considered, however patient has block with history epileptic seizures, patient has no neurological deficits.) Critical Care Time Critical Care Time Critical Care Time: Yes Total Critical Care Time: 60 Attestation: I have personally provided critical care time. Time includes review of lab data, radiology results, discussion with consultants, and monitoring for potential decompensation. Intervention performed as documented. Discharge Plan Discharge Clinical Impression: Epileptic seizure Patient Disposition: Admitted As Inpatient
--- NOTE | 2022-06-12 20:34 | MHC.EDTECH ---
After getting blood cultures, Patient experienced another seizure and it lasted about 5 seconds. Patient is agitated about not receiving his medication that he would have had at his retirement at 1999.
[2022-06-12 20:35] LABS: Valproate 78.4 mcg/mL (50.0-100.0)
--- NOTE | 2022-06-12 20:44 | PC.NURSE ---
Allen Ponce skilled nursing nurse. [phone]
[2022-06-12] MEDS: Midazolam HCl/PF 2 MG/2 ML VIAL 1 MG IVPUSH (20:54)
[2022-06-12] MEDS: Enoxaparin Sodium 40 MG/0.4 ML SYRINGE SUBCUT (20:54)
--- NOTE | 2022-06-12 21:04 | PM.IMHP ---
History of Present Illness Date of Service: 06/12/22 Chief Complaint: Seizure This is a 47-year-old male with pertinent history of seizure disorder, followed by Dr. Holland and cognitive delay following anoxic brain injury at who was brought to the emergency department for evaluation of multiple seizure episodes. Patient was recently admitted and discharged on 04/10 for breakthrough seizures believed to be due to long doses of his Keppra. He was evaluated by Neurology than who recommended to continue Keppra and valproic acid and he was discharged on Keppra 1500 mg b.i.d. and valproic acid 1000 mg b.i.d.. Patient is accompanied by his paternal aunt who states that patient has been compliant with his medication. The half-way was contacted said the same and conformed his doses of Keppra and valproic acid. Previously Tegretol was discontinued due to hyponatremia. Unable to obtain any history from the patient as he is agitated and refusing to participate in a conversation at the time of my evaluation. Multiple episode of seizures prior to presentation happened in bed while at half-way. The episodes lasted less than a minute and there was complete recovery of consciousness in between episodes. As per half-way, no fever, chills or infectious symptoms. Review of Systems Review of Systems: Yes Unobtainable due to mental status [facility] Medical History (Updated 06/12/22 @ 21:08 by Jacqueline Lynn MD) Anxiety disorder, unspecified History of SIADH Hyponatremia Intellectual disability Seizure disorder Family History Other No family history of coronary artery disease Surgical History No pertinent past surgical history Social History Household Members: Other Household Members Other:: group homr Housing: Other Housing Other:: longterm Alcohol intake: never Patient Tobacco Use Status: Never used Tobacco e-Cigarette/Vaping Use: Never Used Advance Directives: Yes Advance Directives on File: Yes Advance Directives Date on File: 02/06/22 service: No Current occupational status: disabled Meds Allergies Allergy/AdvReac Type Severity Reaction Status Date / Time No Known Allergies Allergy Verified 12/31/21 15:26 [No Known Allergies*] Active Medications: Current Medications Acetaminophen (Acetaminophen 325 Mg Tablet) 650 mg PO Q6H PRN PRN Reason: Pain, Mild (Pain Scale 1-3) Enoxaparin Sodium (Enoxaparin Sodium 40 Mg/0.4 Ml Syringe) 40 mg SUBCUT Q24H [facility] Last Admin: 06/12/22 20:54 Dose: 40 mg Levetiracetam (Levetiracetam 500 Mg/5 Ml Vial) 1,500 mg IV BID [facility] Melatonin (Melatonin 3 Mg Tablet) 6 mg PO BEDTIME PRN PRN Reason: Insomnia Ondansetron HCl (Ondansetron Hcl 4 Mg/2 Ml Vial) 4 mg IVPUSH Q8H PRN PRN Reason: Nausea and Vomiting Pharmacy Consult (Consult Rx Perform Med Rec) 1 each MISCELLANE ONCE PRN PRN Reason: Consult order Sodium Chloride (0.9 % Sodium Chloride Flush 3 Ml Syringe) 3 ml IVFLUSH QSHIFT [facility] Home Medications Medication Instructions Recorded Confirmed Last Taken Type calcium carbonate 200 mg calcium 1,000 mg PO DAILY 12/31/21 04/08/22 04/08/22 History (500 mg) chewable tablet (Juan-Gest Antacid) cetirizine 10 mg tablet (Zyrtec) 10 mg PO DAILY PRN post nasal drip 12/31/21 04/08/22 02/23/22 History cholecalciferol (vitamin D3) 50 100 mcg PO DAILY 12/31/21 04/08/22 04/08/22 History mcg (2,000 unit) tablet (Vitamin D3) clonazepam 0.5 mg tablet 0.5 mg PO BID@1600,2000 12/31/21 06/12/22 06/12/22 History diclofenac sodium 1 % topical gel 1 g topical QID PRN Pain (Scale 12/31/21 04/08/22 02/23/22 History Score 4-6) divalproex 500 mg tablet,delayed 2 tab PO BID 12/31/21 04/08/22 04/08/22 History release docusate sodium 100 mg capsule 100 mg PO BID 12/31/21 04/08/22 04/08/22 History (Colace) multivitamin 1 tab PO DAILY 12/31/21 04/08/22 04/08/22 History omega 2-uvn-uta-fish oil 1,000 mg 1 cap PO DAILY 12/31/21 04/08/22 04/08/22 History (120 mg-180 mg) capsule (Fish Oil) risperidone 0.5 mg tablet 1 tab PO BID 12/31/21 04/08/22 04/08/22 History acetaminophen 325 mg tablet 650 mg PO Q6H PRN Pain 04/08/22 04/08/22 Unknown History (Tylenol) loperamide 2 mg tablet (Imodium 2 mg PO Q4H PRN Loose Stool 04/08/22 04/08/22 Unknown History A-D) carbamazepine 400 mg mg PO 06/12/22 Unknown History tablet,extended release,12 hr clonazepam 1 mg tablet 1 mg PO DAILY 06/12/22 06/12/22 06/12/22 History lorazepam 2 mg tablet (Ativan) 2 mg PO DAILY PRN Seizures 06/12/22 06/12/22 Unknown History Physical Exam Vital Signs and Narrative: Vital Signs: Last Vital Signs Pulse 89 06/12/22 18:14 Resp 18 06/12/22 18:14 BP 148/108 H 06/12/22 18:14 Pulse Ox 96 06/12/22 18:14 O2 Del Method 06/12/22 18:14 BMI result Body Mass Index 25.9 Middle-aged male lying in bed in no distress Neck supple, no JVD Regular rate and rhythm, S1-S2 heard Regular breath sounds bilaterally, no wheezing or crackles appreciated Abdomen soft nontender, no guarding, no rigidity Patient is awake, alert and agitated, does not want to take part in conversation Psych: Agitated No pedal edema Results Labs CBC and Chem 7: 06/12/22 19:30 06/12/22 19:30 Labs: Laboratory Results - last 24 hr 06/12/22 06/12/22 06/12/22 19:30 19:30 19:30 MCV 96.0 MCH 31.8 MCHC 33.2 RDW 13.1 Plt Count 187 MPV 10.2 Immature Gran % (Auto) 0.4 Neut % (Auto) 66.5 Lymph % (Auto) 22.2 [place] % (Auto) 10.6 Eos % (Auto) 0.0 Baso % (Auto) 0.3 Lymph # (Auto) 1.5 [place] # (Auto) 0.7 Eos # (Auto) 0.0 Baso # (Auto) 0.0 Abs Immat Gran (auto) 0.03 Absolute Neuts (auto) 4.5 Absolute Nucleated RBC 0.000 Nucleated RBC % (auto) 0.0 Anion Gap 11 L Estim Creat Clear Calc 106.7 Estimated GFR > 60 Random Glucose 105 Lactic Acid Calcium 9.8 Magnesium 2.0 Total Bilirubin 0.3 Direct Bilirubin < 0.2 AST 42 H ALT 45 H Alkaline Phosphatase 39 Troponin I High Sens Total Protein 7.1 Albumin 4.5 Valproic Acid 78.4 Carbamazepine < 2.0 L* COVID-19 (JANICE) COVID-19 Clin Com 06/12/22 06/12/22 06/12/22 19:30 19:30 19:30 MCV MCH MCHC RDW Plt Count MPV Immature Gran % (Auto) Neut % (Auto) Lymph % (Auto) [place] % (Auto) Eos % (Auto) Baso % (Auto) Lymph # (Auto) [place] # (Auto) Eos # (Auto) Baso # (Auto) Abs Immat Gran (auto) Absolute Neuts (auto) Absolute Nucleated RBC Nucleated RBC % (auto) Anion Gap Estim Creat Clear Calc Estimated GFR Random Glucose Lactic Acid 2.7 H* Calcium Magnesium Total Bilirubin Direct Bilirubin AST ALT Alkaline Phosphatase Troponin I High Sens < 3.5 Total Protein Albumin Valproic Acid Carbamazepine COVID-19 (JANICE) Negative COVID-19 Clin Com See Note Assessment and Plan (1) Epileptic seizure: Status: Acute (2) Intellectual disability: Status: Acute Plan This is a 47-year-old male with pertinent history of seizure disorder, followed by Dr. Holland and cognitive delay following anoxic brain injury at who was brought to the emergency department for evaluation of multiple seizure episodes. #. Breakthrough seizures in a patient with seizure disorder: Given Versed and loaded with Keppra in the ER. Continue home antiepileptics. Obtaining CT scan of the brain and EEG. Consulting Neurology for recommendations. Versed p.r.n. for breakthrough seizures. Seizure precautions. Unclear etiology of breakthrough seizure, infectious workup pending including UA and chest x-ray #. Cognitive delay/behavioral disturbance: Continue chronic medications [risperidone, clonidine] #. Acute lactic acidosis due to seizures DVT prophylaxis: Lovenox 40 mg daily Full code Admit as inpatient for seizure workup. Neurology consult pending Time Spent With Patient Time: Total time managing care of this patient today ____ minutes. Quality Stroke Does the patient have a stroke diagnosis?: No VTE Prior VTE?: No VTE Risk Level:: Medical - moderate - high VTE Device Contraindication: Treatment Not Indicated VTE Drug Contraindication: N/A - Med Ordered
[2022-06-12] MEDS: Divalproex Sodium 500 MG TABLET.DR 1000 MG PO (21:17)
--- NOTE | 2022-06-12 21:27 | PHA.MEDREC ---
Pharmacy Consult ? Medication Reconciliation Pharmacy has completed the medication reconciliation. Completed patient medication list using list from [facility].
[2022-06-12 21:34] LABS: Reflex Lactate? Lactic Acid Added
[2022-06-12] MEDS: risperiDONE 0.5 MG TABLET PO (21:44)
[2022-06-12] MEDS: clonazePAM 0.5 MG TABLET PO (21:44)
[2022-06-12 21:49] LABS: Carbamazepine Tegretol < 2.0 mcg/mL (5.0-12.0)
[2022-06-12 22:49] VITALS: BP 143/95; PULSE 94; RESP 12; TEMP 36.7; O2SAT 98
[2022-06-12 23:25] LABS: Appearance Urine Clear; Color Urine Yellow; Glucose Urine UA Negative (Negative); Leukocyte Esterase Urine Negative (Negative); Nitrite Urine Negative (Negative); Urine Blood Negative (Negative); Urine Ketones Trace mg/dL (Negative); Urine Protein Negative (Neg-Trace)
[2022-06-12 23:35] LABS: ~Lactic Acid-LAB USE ONLY 1.8 mmol/L (0.5-2.0)
[2022-06-12 23:43] LABS: Amphetamine Screen Urine Not Detected (Not Detect); Barbiturates, Urine Not Detected (Not Detect); Benzodiazepines Screen Urine POSITIVE (Not Detect); Cannabinoid Screen Urine Not Detected (Not Detect); Cocaine Screen Urine Not Detected (Not Detect); Fentanyl, urine Not Detected (Not Detect); Opiate Screen Urine Not Detected (Not Detect); Phencyclidine Screen Urine Not Detected (Not Detect)
[2022-06-13] MEDS: Acetaminophen 325 MG TABLET 650 MG PO
[2022-06-13] MEDS: Melatonin 3 MG TABLET 6 MG PO (01:50)
[2022-06-13 05:17] VITALS: BP 135/82; PULSE 73; RESP 18; TEMP 36.6; O2SAT 100
[2022-06-13 06:31] LABS: MANUAL DIFF FLAG NO
[2022-06-13 06:37] LABS: Basophils Percent Auto 0.3 % (0-2); Eosinophils Percent Auto 0.3 % (0-4); Hematocrit 41.3 % (42.0-52.0); Hemoglobin 13.8 g/dl (14.0-18.0); Imm Gran Abs Auto 0.02 X10*3/uL (0.00-0.03); Imm Gran Pct Auto 0.3 % (0.0-0.4); Lymphocytes Absolute Auto 2.3 X10*3/uL (1.2-4.9); Lymphocytes Percent Auto 39.4 % (20-40); Mean Corpuscular HGB Conc 33.4 g/dl (31.0-36.0); Mean Corpuscular Hemoglobin 31.7 pg (27.0-33.0); Mean Corpuscular Volume 94.9 fL (80.0-98.0); Mean Platelet Volume 10.8 fL (9.4-12.4); Monocytes Absolute Auto 0.6 X10*3/uL (0.1-1.2); Neutrophils Absolute Auto 2.8 x10*3/uL (2.0-8.3); Neutrophils Percent Auto 48.7 % (45-73); Platelet Count 173 X10*3/uL (160-400); Red Blood Count 4.35 X10*6/uL (4.60-5.80); Red Cell Distribution Width 13.1 % (11.0-16.0); White Blood Count 5.8 X10*3/uL (4.8-10.8)
[2022-06-13 07:20] LABS: Anion Gap 12 (12-20); Blood Urea Nitrogen 11 mg/dL (9-16); Calcium 8.8 mg/dL (8.4-10.2); Carbon Dioxide 24 mmol/L (22-29); Chloride 109 mmol/L (96-108); Creatinine Clr Calc Pharmacy 121.1; Estimated Glomerular Filt Rate > 60; Glucose Random 81 mg/dL (60-115); Potassium 4.3 mmol/L (3.3-5.1); Sodium 141 mmol/L (135-145)
[2022-06-13 07:33] VITALS: BP 138/95; PULSE 84; RESP 18; TEMP 36.6; O2SAT 100
[2022-06-13] MEDS: Divalproex Sodium 500 MG TABLET.DR 1000 MG PO ×2 (08:16→20:15)
[2022-06-13] MEDS: Calcium Carbonate 750 MG TAB.CHEW PO (08:16)
[2022-06-13] MEDS: Docusate Sodium 100 MG CAPSULE PO ×2 (08:16→20:15)
[2022-06-13] MEDS: risperiDONE 0.5 MG TABLET PO ×2 (08:17→20:15)
[2022-06-13] MEDS: 0.9 % Sodium Chloride Flush 3 ML SYRINGE IVFLUSH ×2 (08:17→16:44)
[2022-06-13] MEDS: Cholecalciferol (Vitamin D3) 25 MCG TABLET 100 MCG PO (08:17)
[2022-06-13] MEDS: levETIRAcetam in NaCl (iso-os) 1,500 MG/100 ML PIGGYBACK 400 MG IV ×2 (08:17→20:20)
--- NOTE | 2022-06-13 08:42 | MHC.CM.PN ---
CM SPOKE WITH SISTER/GUARDIAN EDER VIA TELEPHONE. IMM EXPLAINED, WHITE COPY LEFT AT BEDSIDE PER HER REQUEST, YELLOW COPY TO CHART. PT LIVES IN A SERVICE [facility] IN [place]. NO OUTSIDES SERVICES OR DME USED. SISTER AND FATHER ARE GUARDIANS, EDER WILL BRING IN A COPY TO PUT ON FILE. COVID VAX X4. PCP DR. COLINDRES. DP: TO RETURN TO [facility]: [facility] TO TRANSPORT, WILL CONFIRM WITH REP.
--- NOTE | 2022-06-13 10:51 | HO.PM.IMPN ---
Subjective Subjective Date of Service: 06/13/22 Physical Exam Vital Signs: Vital Signs: Last Vital Signs Temp 97.9 F 06/13/22 07:33 Pulse 84 06/13/22 07:33 Resp 18 06/13/22 07:33 BP 138/95 H 06/13/22 07:33 Pulse Ox 100 06/13/22 07:33 O2 Del Method 06/13/22 07:33 BMI result Body Mass Index 25.9 Objective Data Active Medications Acetaminophen (Acetaminophen 325 Mg Tablet) 650 mg PO Q6H PRN PRN Reason: Pain, Mild (Pain Scale 1-3) Last Admin: 06/13/22 00:00 Dose: 650 mg Documented By: KRYSTEN Calcium Carbonate (Calcium Carbonate 750 Mg Tab.Chew) 750 mg PO DAILY [facility] Last Admin: 06/13/22 08:16 Dose: 750 mg Documented By: SADQI Clonazepam (Clonazepam 0.5 Mg Tablet) 0.5 mg PO BID@1600,2000 [facility] Clonidine HCl (Clonidine Hcl 0.1 Mg Tablet) 0.1 mg PO DAILY PRN; Protocol PRN Reason: Agitation Divalproex Sodium (Divalproex Sodium 500 Mg Tablet.Dr) 1,000 mg PO BID [facility] Last Admin: 06/13/22 08:16 Dose: 1,000 mg Documented By: SADIQ Docusate Sodium (Docusate Sodium 100 Mg Capsule) 100 mg PO BID [facility] Last Admin: 06/13/22 08:16 Dose: 100 mg Documented By: SADIQ Enoxaparin Sodium (Enoxaparin Sodium 40 Mg/0.4 Ml Syringe) 40 mg SUBCUT Q24H [facility] Last Admin: 06/12/22 20:54 Dose: 40 mg Documented By: KRYSTEN Levetiracetam (Keppra) 1,500 mg in 100 mls @ 400 mls/hr IV Q12H [facility] Last Infusion: 06/13/22 08:36 Dose: 0 mls/hr Documented By: SADIQ Loratadine (Loratadine 10 Mg Tablet) 10 mg PO DAILY PRN PRN Reason: post nasal drip Lorazepam (Lorazepam 1 Mg Tablet) 2 mg PO DAILY PRN PRN Reason: Seizures Melatonin (Melatonin 3 Mg Tablet) 6 mg PO BEDTIME PRN PRN Reason: Insomnia Last Admin: 06/13/22 01:50 Dose: 6 mg Documented By: KRYSTEN Midazolam HCl (Midazolam Hcl/Pf 2 Mg/2 Ml Vial) 1 mg IVPUSH Q15M PRN PRN Reason: seizure Ondansetron HCl (Ondansetron Hcl 4 Mg/2 Ml Vial) 4 mg IVPUSH Q8H PRN PRN Reason: Nausea and Vomiting Pharmacy Consult (Consult Rx Perform Med Rec) 1 each MISCELLANE ONCE PRN PRN Reason: Consult order Risperidone (Risperidone 0.5 Mg Tablet) 0.5 mg PO BID [facility] Last Admin: 06/13/22 08:17 Dose: 0.5 mg Documented By: SADIQ Sodium Chloride (0.9 % Sodium Chloride Flush 3 Ml Syringe) 3 ml IVFLUSH QSHIFT [facility] Last Admin: 06/13/22 08:17 Dose: 3 ml Documented By: SADIQ Vitamin D (Cholecalciferol (Vitamin D3) 25 Mcg Tablet) 100 mcg PO DAILY [facility] Last Admin: 06/13/22 08:17 Dose: 100 mcg Documented By: SADIQ Labs CBC & Chem 7: 06/13/22 05:29 06/13/22 05:29 Labs: Laboratory Results - last 24 hr 06/12/22 06/12/22 06/12/22 19:30 19:30 19:30 MCV 96.0 MCH 31.8 MCHC 33.2 RDW 13.1 Plt Count 187 MPV 10.2 Immature Gran % (Auto) 0.4 Neut % (Auto) 66.5 Lymph % (Auto) 22.2 [place] % (Auto) 10.6 Eos % (Auto) 0.0 Baso % (Auto) 0.3 Lymph # (Auto) 1.5 [place] # (Auto) 0.7 Eos # (Auto) 0.0 Baso # (Auto) 0.0 Abs Immat Gran (auto) 0.03 Absolute Neuts (auto) 4.5 Absolute Nucleated RBC 0.000 Nucleated RBC % (auto) 0.0 Anion Gap 11 L Estim Creat Clear Calc 106.7 Estimated GFR > 60 Random Glucose 105 Lactic Acid Lactic Acid F/U @ 2Hr Calcium 9.8 Magnesium 2.0 Total Bilirubin 0.3 Direct Bilirubin < 0.2 AST 42 H ALT 45 H Alkaline Phosphatase 39 Troponin I High Sens Total Protein 7.1 Albumin 4.5 Urine Color Urine Appearance Urine pH Ur Specific [place] Urine Protein Urine Glucose (UA) Urine Ketones Urine Blood Urine Nitrite Ur Leukocyte Esterase Urine Opiates Screen Urine Fentanyl Screen Ur Barbiturates Screen Valproic Acid 78.4 Carbamazepine < 2.0 L* Ur Phencyclidine Scrn Ur Amphetamines Screen U Benzodiazepines Scrn Urine Cocaine Screen U Marijuana (THC) Screen COVID-19 (JANICE) COVID-19 Clin Com 06/12/22 06/12/22 06/12/22 19:30 19:30 19:30 MCV MCH MCHC RDW Plt Count MPV Immature Gran % (Auto) Neut % (Auto) Lymph % (Auto) [place] % (Auto) Eos % (Auto) Baso % (Auto) Lymph # (Auto) [place] # (Auto) Eos # (Auto) Baso # (Auto) Abs Immat Gran (auto) Absolute Neuts (auto) Absolute Nucleated RBC Nucleated RBC % (auto) Anion Gap Estim Creat Clear Calc Estimated GFR Random Glucose Lactic Acid 2.7 H* Lactic Acid F/U @ 2Hr Calcium Magnesium Total Bilirubin Direct Bilirubin AST ALT Alkaline Phosphatase Troponin I High Sens < 3.5 Total Protein Albumin Urine Color Urine Appearance Urine pH Ur Specific [place] Urine Protein Urine Glucose (UA) Urine Ketones Urine Blood Urine Nitrite Ur Leukocyte Esterase Urine Opiates Screen Urine Fentanyl Screen Ur Barbiturates Screen Valproic Acid Carbamazepine Ur Phencyclidine Scrn Ur Amphetamines Screen U Benzodiazepines Scrn Urine Cocaine Screen U Marijuana (THC) Screen COVID-19 (JANICE) Negative COVID-19 Clin Com See Note 06/12/22 06/12/22 06/12/22 23:16 23:16 23:16 MCV MCH MCHC RDW Plt Count MPV Immature Gran % (Auto) Neut % (Auto) Lymph % (Auto) [place] % (Auto) Eos % (Auto) Baso % (Auto) Lymph # (Auto) [place] # (Auto) Eos # (Auto) Baso # (Auto) Abs Immat Gran (auto) Absolute Neuts (auto) Absolute Nucleated RBC Nucleated RBC % (auto) Anion Gap Estim Creat Clear Calc Estimated GFR Random Glucose Lactic Acid Lactic Acid F/U @ 2Hr 1.8 Calcium Magnesium Total Bilirubin Direct Bilirubin AST ALT Alkaline Phosphatase Troponin I High Sens Total Protein Albumin Urine Color Yellow Urine Appearance Clear Urine pH 8.0 Ur Specific [place] 1.020 Urine Protein Negative Urine Glucose (UA) Negative Urine Ketones Trace Urine Blood Negative Urine Nitrite Negative Ur Leukocyte Esterase Negative Urine Opiates Screen Not Detected Urine Fentanyl Screen Not Detected Ur Barbiturates Screen Not Detected Valproic Acid Carbamazepine Ur Phencyclidine Scrn Not Detected Ur Amphetamines Screen Not Detected U Benzodiazepines Scrn POSITIVE H Urine Cocaine Screen Not Detected U Marijuana (THC) Screen Not Detected COVID-19 (JANICE) COVID-19 Clin Com 06/13/22 06/13/22 05:29 05:29 MCV 94.9 MCH 31.7 MCHC 33.4 RDW 13.1 Plt Count 173 MPV 10.8 Immature Gran % (Auto) 0.3 Neut % (Auto) 48.7 Lymph % (Auto) 39.4 [place] % (Auto) 11.0 Eos % (Auto) 0.3 Baso % (Auto) 0.3 Lymph # (Auto) 2.3 [place] # (Auto) 0.6 Eos # (Auto) 0.0 Baso # (Auto) 0.0 Abs Immat Gran (auto) 0.02 Absolute Neuts (auto) 2.8 Absolute Nucleated RBC 0.000 Nucleated RBC % (auto) 0.0 Anion Gap 12 Estim Creat Clear Calc 121.1 Estimated GFR > 60 Random Glucose 81 Lactic Acid Lactic Acid F/U @ 2Hr Calcium 8.8 D Magnesium Total Bilirubin Direct Bilirubin AST ALT Alkaline Phosphatase Troponin I High Sens Total Protein Albumin Urine Color Urine Appearance Urine pH Ur Specific [place] Urine Protein Urine Glucose (UA) Urine Ketones Urine Blood Urine Nitrite Ur Leukocyte Esterase Urine Opiates Screen Urine Fentanyl Screen Ur Barbiturates Screen Valproic Acid Carbamazepine Ur Phencyclidine Scrn Ur Amphetamines Screen U Benzodiazepines Scrn Urine Cocaine Screen U Marijuana (THC) Screen COVID-19 (JANICE) COVID-19 Clin Com Assessment and Plan (1) Epileptic seizure: Status: Acute Plan 47-year-old man with history of seizure disorder and cognitive delay secondary to anoxic brain injury at followed by Dr. Holland admitted for multiple seizure episodes Breakthrough seizures. No clear etiology, so far infectious workup negative Treated with Versed and Keppra loaded in the ER Continue IV Keppra Head CT negative for any acute abnormality EEG ordered Neurology consultation pending Seizure precautions History of cognitive delay with behavioral disturbances Continue risperidone and clonidine Acute lactic acidosis Secondary to seizures DVT prophylaxis with Lovenox Attending Dr. Nova Full code Continue hospitalization for treatment of acute breakthrough seizures requiring IV medications and further workup as per Neurology Time Spent With Patient Time: Total time managing care of this patient today ____ minutes. Quality Stroke Does the patient have a stroke diagnosis?: No VTE Prior VTE?: No VTE Risk Level:: Medical - moderate - high VTE Device Contraindication: Treatment Not Indicated VTE Drug Contraindication: N/A - Med Ordered
[2022-06-13 15:17] VITALS: BP 137/97; PULSE 81; RESP 18; TEMP 36.3; O2SAT 99
[2022-06-13] MEDS: clonazePAM 0.5 MG TABLET PO ×2 (16:44→20:15)
[2022-06-13 19:21] VITALS: BP 134/90; PULSE 71; RESP 18; TEMP 36.8; O2SAT 99
[2022-06-13] MEDS: Enoxaparin Sodium 40 MG/0.4 ML SYRINGE SUBCUT (20:15)
[2022-06-14] MEDS: 0.9 % Sodium Chloride Flush 3 ML SYRINGE IVFLUSH ×4 (00:57→19:27)
[2022-06-14 03:41] VITALS: BP 109/65; PULSE 76; RESP 18; TEMP 36.1; O2SAT 96
[2022-06-14 06:09] LABS: Anion Gap 14 (12-20); Blood Urea Nitrogen 10 mg/dL (9-16); Calcium 9.4 mg/dL (8.4-10.2); Carbon Dioxide 25 mmol/L (22-29); Chloride 104 mmol/L (96-108); Creatinine Clr Calc Pharmacy 111.1; Estimated Glomerular Filt Rate > 60; Glucose Random 86 mg/dL (60-115); Potassium 3.9 mmol/L (3.3-5.1); Sodium 139 mmol/L (135-145)
[2022-06-14] MEDS: levETIRAcetam in NaCl (iso-os) 1,500 MG/100 ML PIGGYBACK 400 MG IV ×2 (07:21→19:27)
[2022-06-14] MEDS: Divalproex Sodium 500 MG TABLET.DR 1000 MG PO ×2 (07:22→19:26)
[2022-06-14] MEDS: risperiDONE 0.5 MG TABLET PO ×2 (07:22→19:26)
[2022-06-14] MEDS: Calcium Carbonate 750 MG TAB.CHEW PO (07:22)
[2022-06-14] MEDS: Cholecalciferol (Vitamin D3) 25 MCG TABLET 100 MCG PO (07:22)
[2022-06-14] MEDS: Docusate Sodium 100 MG CAPSULE PO ×2 (07:22→19:26)
[2022-06-14 08:12] VITALS: BP 159/98; PULSE 83; RESP 18; TEMP 36.2; O2SAT 99
--- NOTE | 2022-06-14 09:46 | HO.PM.IMPN ---
Subjective Subjective Date of Service: 06/14/22 Review of Systems Follow-up breakthrough seizure Episodes of seizures since admission Physical Exam Vital Signs: Vital Signs: Last Vital Signs Temp 97.1 F 06/14/22 08:12 Pulse 83 06/14/22 08:12 Resp 18 06/14/22 08:12 BP 159/98 H 06/14/22 08:12 Pulse Ox 99 06/14/22 08:12 O2 Del Method 06/14/22 08:12 BMI result Body Mass Index 25.9 Appearing in no acute distress lung sounds are clear to auscultation heart regular rate rhythm, clear S1, S2 positive bowel sounds, abdomen is soft, nontender neuro patient is alert x3, no focal deficits Objective Data Active Medications Acetaminophen (Acetaminophen 325 Mg Tablet) 650 mg PO Q6H PRN PRN Reason: Pain, Mild (Pain Scale 1-3) Last Admin: 06/13/22 00:00 Dose: 650 mg Documented By: KRYSTEN Calcium Carbonate (Calcium Carbonate 750 Mg Tab.Chew) 750 mg PO DAILY [facility] Last Admin: 06/14/22 07:22 Dose: 750 mg Documented By: SADIQ Clonazepam (Clonazepam 0.5 Mg Tablet) 0.5 mg PO BID@1600,2000 [facility] Last Admin: 06/13/22 20:15 Dose: 0.5 mg Documented By: LUCAS Clonidine HCl (Clonidine Hcl 0.1 Mg Tablet) 0.1 mg PO DAILY PRN; Protocol PRN Reason: Agitation Divalproex Sodium (Divalproex Sodium 500 Mg Tablet.) 1,000 mg PO BID [facility] Last Admin: 06/14/22 07:22 Dose: 1,000 mg Documented By: SADIQ Docusate Sodium (Docusate Sodium 100 Mg Capsule) 100 mg PO BID [facility] Last Admin: 06/14/22 07:22 Dose: 100 mg Documented By: SADIQ Enoxaparin Sodium (Enoxaparin Sodium 40 Mg/0.4 Ml Syringe) 40 mg SUBCUT Q24H [facility] Last Admin: 06/13/22 20:15 Dose: 40 mg Documented By: LUCAS Levetiracetam (Keppra) 1,500 mg in 100 mls @ 400 mls/hr IV Q12H [facility] Last Infusion: 06/14/22 07:45 Dose: 0 mls/hr Documented By: SADIQ Loratadine (Loratadine 10 Mg Tablet) 10 mg PO DAILY PRN PRN Reason: post nasal drip Lorazepam (Lorazepam 1 Mg Tablet) 2 mg PO DAILY PRN PRN Reason: Seizures Melatonin (Melatonin 3 Mg Tablet) 6 mg PO BEDTIME PRN PRN Reason: Insomnia Last Admin: 06/13/22 01:50 Dose: 6 mg Documented By: KRYSTEN Midazolam HCl (Midazolam Hcl/Pf 2 Mg/2 Ml Vial) 1 mg IVPUSH Q15M PRN PRN Reason: seizure Ondansetron HCl (Ondansetron Hcl 4 Mg/2 Ml Vial) 4 mg IVPUSH Q8H PRN PRN Reason: Nausea and Vomiting Pharmacy Consult (Consult Rx Perform Med Rec) 1 each MISCELLANE ONCE PRN PRN Reason: Consult order Risperidone (Risperidone 0.5 Mg Tablet) 0.5 mg PO BID [facility] Last Admin: 06/14/22 07:22 Dose: 0.5 mg Documented By: SADIQ Sodium Chloride (0.9 % Sodium Chloride Flush 3 Ml Syringe) 3 ml IVFLUSH QSHIFT [facility] Last Admin: 06/14/22 07:25 Dose: 3 ml Documented By: SADIQ Vitamin D (Cholecalciferol (Vitamin D3) 25 Mcg Tablet) 100 mcg PO DAILY [facility] Last Admin: 06/14/22 07:22 Dose: 100 mcg Documented By: SADIQ Labs CBC & Chem 7: 06/13/22 05:29 06/14/22 05:07 Labs: Laboratory Results - last 24 hr 06/14/22 05:07 Anion Gap 14 Estim Creat Clear Calc 111.1 Estimated GFR > 60 Random Glucose 86 Calcium 9.4 D Microbiology Microbiology Results: Microbiology 06/12/22 20:25 Blood Culture - Preliminary Blood - Venous No growth after 24 hours. 06/12/22 20:25 Blood Culture - Preliminary Blood - Venous No growth after 24 hours. Assessment and Plan (1) Epileptic seizure: Status: Acute Plan 47-year-old man with history of seizure disorder and cognitive delay secondary to anoxic brain injury at followed by Dr. Holland admitted for multiple seizure episodes Breakthrough seizures. No clear etiology, so far infectious workup negative Treated with Versed and Keppra loaded in the ER Continue IV Elpidioppra Depakote initiated Head CT negative for any acute abnormality EEG ordered Neurology consultation pending Seizure precautions History of cognitive delay with behavioral disturbances Continue risperidone and clonidine Acute lactic acidosis Secondary to seizures DVT prophylaxis with Lovenox Attending Dr. Nova Full code Continue hospitalization for treatment of acute breakthrough seizures requiring IV medications and further workup as per Neurology Time Spent With Patient Time: Total time managing care of this patient today ____ minutes. Quality Stroke Does the patient have a stroke diagnosis?: No VTE Prior VTE?: No VTE Risk Level:: Medical - moderate - high VTE Device Contraindication: Treatment Not Indicated VTE Drug Contraindication: N/A - Med Ordered
[2022-06-14 15:16] VITALS: BP 139/94; PULSE 93; RESP 18; TEMP 36.3; O2SAT 100
[2022-06-14] MEDS: clonazePAM 0.5 MG TABLET PO ×2 (15:30→19:26)
[2022-06-14] MEDS: Enoxaparin Sodium 40 MG/0.4 ML SYRINGE SUBCUT (19:26)
[2022-06-14] MEDS: Melatonin 3 MG TABLET 6 MG PO (19:27)
[2022-06-14 20:00] VITALS: BP 116/70; PULSE 86; RESP 18; TEMP 36.4; O2SAT 100
[2022-06-15 03:32] VITALS: BP 128/85; PULSE 88; RESP 14; TEMP 36; O2SAT 98
[2022-06-15 07:31] VITALS: BP 145/88; PULSE 53; RESP 16; TEMP 36.6; O2SAT 98
--- NOTE | 2022-06-15 07:41 | PM.DS ---
DS: Providers Provider Date of Service: 06/15/22 Date of admission: 06/12/22 20:33 Primary care physician: LOIS Constantino Consults: 06/12/22 20:35 Consult to Neurology Routine Consulting Provider: [facility] Reason for consultation: seizures Attending physician on discharge: [facility] Discharging clinician: Deann Elder DS: Diagnosis Discharge Diagnosis (1) Epileptic seizure: Status: Acute DS: Summary Hospital Course Hospital Course: This is a 47-year-old male with pertinent history of seizure disorder, followed by Dr. Holland and cognitive delay following anoxic brain injury at who was brought to the emergency department for evaluation of multiple seizure episodes.? Patient was recently admitted and discharged on 04/10 for breakthrough seizures believed to be due to long doses of his Keppra.? He was evaluated by Neurology than who recommended to continue Keppra and valproic acid and he was discharged on Keppra 1500 mg b.i.d. and valproic acid 1000 mg b.i.d..? Patient is accompanied by his paternal aunt who states that patient has been compliant with his medication.? The care home was contacted said the same and conformed his doses of Keppra and valproic acid.? Previously Tegretol was discontinued due to hyponatremia.? Unable to obtain any history from the patient as he is agitated and refusing to participate in a conversation at the time of my evaluation.? Multiple episode of seizures prior to presentation happened in bed while at care home.? The episodes lasted less than a minute and there was complete recovery of consciousness in between episodes.? As per care home, no fever, chills or infectious symptoms. Breakthrough seizures.?No seizure activity during admission No clear etiology, infectious workup negative Treated with Versed and Keppra loaded in the ER Treated with IV Keppra, and depakote continued Head CT negative for any acute abnormality History of cognitive delay with behavioral disturbances Continue risperidone and clonidine Acute lactic acidosis Secondary to seizures Time Spent with Patient Time attestation: Total time managing care of this patient today ____ minutes. Discharge coordination time: Greater than 30 minutes Quality: Safe Use of Opioids Does Pt have an Active Cancer Diagnosis on the Problem List?: No Quality: Stroke Does the patient have a stroke diagnosis?: No Physical Exam Vital Signs: Vital Signs: Last Vital Signs Temp 97.8 F 06/15/22 07:31 Pulse 53 06/15/22 07:31 Resp 16 06/15/22 07:31 BP 145/88 H 06/15/22 07:31 Pulse Ox 98 06/15/22 07:31 O2 Del Method 06/15/22 07:31 BMI result Body Mass Index 25.9 Appearing in no acute distress head is normocephalic atraumatic eyes pupils are PERRLA sclera is anicteric mouth throat mucous membranes are intact and moist neck is supple no lymphadenopathy, no JVD noted lung sounds are clear to auscultation heart regular rate rhythm, clear S1, S2 positive bowel sounds, abdomen is soft, nontender neuro patient is alert x3, no focal deficits DS: Data Data Completed and Pending Labs on day of discharge: Preliminary micro results at discharge 06/12/22 20:25 Blood Culture - Preliminary Blood - Venous No growth after 48 hours. 06/12/22 20:25 Blood Culture - Preliminary Blood - Venous No growth after 48 hours. Discharge Plan Discharge Anticipated Discharge Date/Time: 06/15/22 07:33 Patient Disposition: Home Health Service Discharge Diagnosis: Breakthrough seizure Referrals: Cydney Estrella PA [Primary Care Provider] - 1 Week Discharge Medications: New divalproex 500 mg Tablet,Delayed Release (Dr/Ec) 1,000 mg PO BID Qty: 120 0RF Continued multivitamin Tablet 1 tab PO DAILY cetirizine [Zyrtec] 10 mg Tablet 10 mg PO DAILY PRN (Reason: post nasal drip) clonazepam 0.5 mg tablet 0.5 mg PO BID@1600,2000 calcium carbonate [Juan-Gest Antacid] 200 mg calcium (500 mg) Tablet,Chewable 1,000 mg PO DAILY docusate sodium [Colace] 100 mg Capsule 100 mg PO BID risperidone 0.5 mg tablet 0.5 mg PO BID diclofenac sodium 1 % Gel 1 g TOPICAL TID PRN (Reason: Pain (Scale Score 4-6)) cholecalciferol (vitamin D3) [Vitamin D3] 50 mcg (2,000 unit) Tablet 100 mcg PO DAILY omega 4-pav-nzy-fish oil [Fish Oil] 1,000 mg (120 mg-180 mg) Capsule 1 cap PO DAILY acetaminophen [Tylenol] 325 mg Tablet 650 mg PO Q6H PRN (Reason: Pain) loperamide [Imodium A-D] 2 mg Tablet 2 mg PO Q4H PRN (Reason: Loose Stool) Rx Instructions: administer after each loose stool until symptoms controlled; do not exceed 8 mg per 24 hrs clonazepam 1 mg Tablet 1 mg PO DAILY lorazepam [Ativan] 2 mg Tablet 2 mg PO DAILY PRN (Reason: Seizures) Ensure Liquid 1 ea PO DAILY Cepacol Sore Throat (maisha-men) 15-2.6 mg Lozenge 1 richard PO Q2H PRN (Reason: Sore Throat) clonidine HCl 0.1 mg Tablet 0.1 mg PO DAILY PRN (Reason: Agitation) dextromethorphan-guaifenesin 10-200 mg/5 mL Liquid 10 ml PO Q4H PRN (Reason: Congestion) Rx Instructions: or cough levetiracetam 500 mg Tablet 1,500 mg PO BID Qty: 180 0RF Discharge Orders: Discharge Order (Routine); Ordered 06/15/22 Ordered By: Deann Elder Diet: Advance to usual diet Activity on Discharge: As tolerated Stand Alone Forms: Patient Portal Discharge page Care Plan Goals: No further episodes of breakthrough seizures Health Concerns: Breakthrough seizure Plan of Treatment: Started on Depakote 1000 mg twice daily Take all medications as prescribed and do not miss doses Assessment: See discharge summary Discharge Date/Time: 06/15/22 11:18
[2022-06-15] MEDS: Calcium Carbonate 750 MG TAB.CHEW PO (07:47)
[2022-06-15] MEDS: Divalproex Sodium 500 MG TABLET.DR 1000 MG PO (07:47)
[2022-06-15] MEDS: 0.9 % Sodium Chloride Flush 3 ML SYRINGE IVFLUSH (07:47)
[2022-06-15] MEDS: risperiDONE 0.5 MG TABLET PO (07:47)
[2022-06-15] MEDS: Cholecalciferol (Vitamin D3) 25 MCG TABLET 100 MCG PO (07:47)
[2022-06-15] MEDS: Docusate Sodium 100 MG CAPSULE PO (07:47)
[2022-06-15] MEDS: levETIRAcetam in NaCl (iso-os) 1,500 MG/100 ML PIGGYBACK 400 MG IV (07:48)
--- NOTE | 2022-06-15 08:22 | MHC.CM.PN ---
Addendum entered by Lena Bunch 06/15/22 11:56: VM LEFT FOR PTS SISTER/GUARDIAN, EDER [phone] INFORMING HER OF DC AND PROVIDING CONTACT INFO IN THE EVENT SHE HAS CONCERNS/QUESTIONS Addendum entered by Lena Bunch 06/15/22 09:28: URMILA SPOKE TO JAYDA AT PTS , SHE WAS INFORMED OF PTS DC AND INDICATED SHE WOULD HAVE STAFF PICK PT UP BY 1030 Original Note: PT IS CLEARED TO DC CM ATTEMPTED TO REACH STAFF TO COORDINATE RETURN HOWEVER THERE IS NO [employer] S[employer] ASSISTANT [employer]INCIPAL AVAILABLE UNTIL AFTER 0900 CM WILL CALL LATER THIS MORNING
[2022-06-17 16:19] LABS: Levetiracetam Keppra 32.8 mcg/mL (6.0-46.0)
== END 2022-06-15 11:18 | disposition home health service (06) | DRG 101 ==
LOC: HO.ED 20:50 → HO.EDOVER 06-13 00:09 → HO.S3 06-13 04:06
PROVIDERS: Admitting Provider Student in an Organized Health Care Education/Training Program; Emergency Provider Emergency Medicine; PCP Physician Assistant; Visit Provider Nurse Practitioner Acute Care
DX: G40.909 Epilepsy, unspecified, not intractable, without status epilepticus (principal); G93.1 Anoxic brain damage, not elsewhere classified; E87.21 Acute metabolic acidosis; F98.9 Unspecified behavioral and emotional disorders with onset usually occurring in childhood and adolescence; F41.9 Anxiety disorder, unspecified; Z20.822 Contact with and (suspected) exposure to COVID-19; Z79.899 Other long term (current) drug therapy
CPT/HCPCS: 36415; 70450; 71045; 80048; 80076; 80156; 80164; 80177; 80307; 81003; 83605; 83735; 84484; 85025; 87040; 87635; 93005; 99285; J1650; J1953; J2250

== ENCOUNTER 2022-07-06 20:37 | Emergency (ER) | payer MEDICARE, MEDICAID, SELFPAY ==
--- NOTE | ~2022-07-06 | CT_ITS ---
EXAMINATION: CT HEAD WITHOUT CONTRAST CLINICAL INFORMATION: Seizure. Question of head injury. COMPARISON: 06/13/2022, and priors dating back to 2008 TECHNIQUE: Contiguous axial imaging was performed from the skull base to vertex without intravenous administration of contrast. This CT examination was performed using dose optimization techniques as appropriate, variously including the following: *Automated exposure control *Adjustment of mA and/or kV according to patient size (this includes techniques or standardized protocols for targeted exams where dose is matched to indication/reason for exam; i.e. extremities or head) *Use of iterative reconstruction technique DLP: 1024 mGy-cm FINDINGS: There is no evidence of acute intracranial hemorrhage or territorial infarction. No abnormal mass effect or midline shift is seen. Stable biparietal encephalomalacia and associated gliosis, more pronounced on the left with accompanying volume loss and extra-axial prominence of the atrium of left lateral ventricle. Again seen is atrophy versus hypoplasia/dysgenesis of the body of the corpus callosum which may represent partial dysgenesis. No extra-axial fluid collections are identified. No hydrocephalus. No significant volume loss. There is no abnormal attenuation within the brain parenchyma. No acute osseous or soft tissue abnormality. Mucosal thickening and secretions present within the bilateral maxillary sinuses. CT/CT head/brain wo IV con IMPRESSION: * No acute intracranial pathology. * Long-term stability of biparietal encephalomalacia and associated gliosis, more pronounced on the left with accompanying volume loss and extra-axial prominence of the atrium of the left lateral ventricle. 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
[2022-07-06 20:47] VITALS: BP 150/95; BP 155/100; PULSE 103; PULSE 90; RESP 16; TEMP 37.3; O2SAT 97; O2SAT 98; BMI 25.3
--- NOTE | 2022-07-06 20:54 | ED_ITS ---
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 He has had multiple admissions for seizure disorder and status epilepticus. Patient is currently taking Depakote a 1000 mg twice a day. In taking Keppra 1500 mg twice a day. At this time patient tells me he feels well has no c omplaints. He tells me group staff members told him he also had a few seizures yesterday. Patient alert and oriented x3 at this time. Denies chest pain shortness of breath, headache, vision changes, dizziness, weakness, nausea, vomiting, abdominal pain, loss of bladder or bowel control. Patient's vital signs are stable. He is unsure if he hit his head with these seizures. He is not on blood thinners. Seizure History: Yes Related Data Home Medications Medication Instructions Recorded Confirmed calcium carbonate 200 mg calcium 1,000 mg PO DAILY 12/31/21 06/12/22 (500 mg) chewable tablet (Juan-Gest Antacid) cetirizine 10 mg tablet (Zyrtec) 10 mg PO DAILY PRN post nasal drip 12/31/21 06/12/22 cholecalciferol (vitamin D3) 50 100 mcg PO DAILY 12/31/21 06/12/22 mcg (2,000 unit) tablet (Vitamin D3) clonazepam 0.5 mg tablet 0.5 mg PO BID@1600,2000 12/31/21 06/12/22 diclofenac sodium 1 % topical gel 1 g topical TID PRN Pain (Scale 12/31/21 06/12/22 Score 4-6) docusate sodium 100 mg capsule 100 mg PO BID 12/31/21 06/12/22 (Colace) multivitamin 1 tab PO DAILY 12/31/21 06/12/22 omega 8-gwd-hxx-fish oil 1,000 mg 1 cap PO DAILY 12/31/21 06/12/22 (120 mg-180 mg) capsule (Fish Oil) risperidone 0.5 mg tablet 0.5 mg PO BID 12/31/21 06/12/22 acetaminophen 325 mg tablet 650 mg PO Q6H PRN Pain 04/08/22 06/12/22 (Tylenol) loperamide 2 mg tablet (Imodium 2 mg PO Q4H PRN Loose Stool 04/08/22 06/12/22 A-D) benzocaine 15 mg-menthol 2.6 mg 1 richard PO Q2H PRN Sore Throat 06/12/22 06/12/22 lozenges (Cepacol Sore Throat (benzocaine-menthol)) clonazepam 1 mg tablet 1 mg PO DAILY 06/12/22 06/12/22 clonidine HCl 0.1 mg tablet 0.1 mg PO DAILY PRN Agitation 06/12/22 06/12/22 dextromethorphan-guaifenesin 10 10 ml PO Q4H PRN Congestion 06/12/22 06/12/22 mg-200 mg/5 mL oral liquid food supplemt, lactose-reduced 1 ea PO DAILY 06/12/22 06/12/22 (Ensure oral liquid) lorazepam 2 mg tablet (Ativan) 2 mg PO DAILY PRN Seizures 06/12/22 06/12/22 Previous Rx's Medication Instructions Recorded levetiracetam 500 mg tablet 1,500 mg PO BID #180 tabs 03/04/22 divalproex 500 mg tablet,delayed 1,000 mg PO BID #120 tabs 06/14/22 release Allergies Allergy/AdvReac Type Severity Reaction Status Date / Time No Known Allergies Allergy Verified 06/13/22 10:01 [No Known Allergies*] Review of Systems Review of Systems: Constitutional : No Weight loss, No Fever, No Chills, No Fatigue, No Malaise ENT/Mouth : No sore throat, No Rhinorrhea Eyes: No Eye Pain, No Swelling, No Redness Cardiovascular : No Chest Pain, No SOB, No Dyspnea on Exertion, No Orthopnea, No Edema, No Palpitations Respiratory : No Cough, No Sputum, No Wheezing Gastrointestinal : No Nausea, No Vomiting, No Diarrhea, No Constipation, No abdominal Pain, No Hematochezia, No Melena Genitourinary : No Dysuria, No Urinary Frequency, No Hematuria, Musculoskeletal : No joint pain, No Myalgias, No Joint Swelling Skin : No Skin Lesions, No rash Neuro : No Weakness, No Numbness, No Dizziness, No Headache Psych : No Anxiety/Panic, No Depression Heme/Lymph: No Bruising, No Bleeding,No Lymphadenopathy All other systems reviewed and are negative Yes all other systems are reviewed and are negative [facility] Past Medical History Attestation statement: The following information was validated with the patient. Source: old records reviewed and nursing notes reviewed Medical History Anxiety disorder, unspecified Epileptic seizure History of SIADH Hyponatremia Intellectual disability Seizure disorder Surgical History No pertinent past surgical history Family History Family History Other No family history of coronary artery disease Social History Social History Household Members: Other Household Members Other:: group homr Housing: House Housing Other:: retirement Do you presently have visiting nurse or other home services: No Alcohol intake: never Patient Tobacco Use Status: Never used Tobacco Smoked in Last 30 Days: No e-Cigarette/Vaping Use: Never Used Use of substances other than those prescribed or required for medical reasons: No Advance Directives: Yes Advance Directives on File: Yes Advance Directives Date on File: 02/06/22 service: No Current occupational status: disabled Physical Exam Vital Signs: Vital Signs: Last Vital Signs Temp 99.1 F 07/06/22 22:07 Pulse 85 07/06/22 22:07 Resp 21 H 07/06/22 22:07 BP 142/102 H 07/06/22 22:07 Pulse Ox 98 07/06/22 22:07 O2 Del Method 07/06/22 22:07 O2 Flow Rate 98 07/06/22 22:07 BMI result Body Mass Index 25.3 vss Appearance: Alert.? Oriented X3.? No acute distress.? Head: Normocephalic, atraumatic, no step-offs or deformities Eyes: Pupils equal, round and reactive to light.? Extraocular movements intact pain-free. ENT: Pharynx normal.? Neck: Normal inspection.? Neck supple.? CVS: Normal heart rate and rhythm.? Pulses normal.? Respiratory: No respiratory distress.? Breath sounds normal.? Abdomen: Soft and nontender.? Skin: Skin warm and dry.? Normal skin color.? Normal skin turgor.? Extremities: No lower extremity edema.? No calf ttp. 5/5 strength to bilateral upper and lower extremities Neuro: Oriented X 3.? No motor deficit.? No sensory deficit. CN 2-12 intact . Normal feyjgp-dg-jxon, kyye-gi-bkjm. Negative pronator drift. Course Reevaluation(s) Reevaluation #1: CBC appears to be around patient's baseline. Chemistry with no acute electrolyte abnormalities requiring intervention. UA without infection. Flu/COVID/RSV negative. CT of head with no acute findings. Patient eating and drinking, watching TV comfortably. Patient is saturating 98% on room air with stable vital signs (patient's pressure slightly elevated however this appears to be around his baseline based off chart review.), he is not on 98 L, this is a mistake. He is saturating 98% on room air. Patient has not had any seizure- like activity while in the department he has remained alert and oriented x4 patient's father at the bedside who is a nurse tells me he has discussed these breakthrough seizures with his neurologist Dr. Holland who states that if patient does not have seizure-like activity he should be discharged back to retirement as he is on seizure medication, the retirement has strict instructions on when to bring the patient into the hospital. 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 Unclear if headstrike Physical examination benign. Neuro nonfocal. Cerebellar intact. Likely epilepsy/breakthrough seizure however, Will rule out electrolyte abnormalities, infection that could be causing seizures. Will obtain head CT as I am unsure patient his head will rule out intracranial hemorrhage/stroke. Plan at this time labs, imaging, urine, viral testing. Differential Diagnosis Differential Diagnoses: The differential diagnosis associated with the presentation includes Likely epilepsy/breakthrough seizure however, Will rule out electrolyte abnormalities, infection that could be causing seizures. Will obtain head CT as I am unsure patient his head will rule out intracranial hemorrhage/stroke. Admission/Observation Consideration of admission/observation: Escalation of care including admission/observation considered Lab Data MDM Lab Attestation statement: I reviewed the patient's lab results. Result Diagrams: 07/06/22 21:56 07/06/22 21:56 Labs: Lab Results 07/06/22 07/06/22 07/06/22 Range/Units 21:56 21:56 21:56 WBC 8.1 (4.8-10.8) X10*3/uL RBC 4.29 L (4.60-5.80) X10*6/uL Hgb 13.6 L (14.0-18.0) g/dl Hct 40.0 L (42.0-52.0) % MCV 93.2 (80.0-98.0) fL MCH 31.7 (27.0-33.0) pg MCHC 34.0 (31.0-36.0) g/dl RDW 13.2 (11.0-16.0) % Plt Count 242 D (160-400) X10*3/uL MPV 9.6 (9.4-12.4) fL Immature Gran % (Auto) 1.2 H (0.0-0.4) % Neut % (Auto) 70.1 (45-73) % Lymph % (Auto) 17.7 L (20-40) % [place] % (Auto) 10.5 (2-11) % Eos % (Auto) 0.1 (0-4) % Baso % (Auto) 0.4 (0-2) % Lymph # (Auto) 1.4 (1.2-4.9) X10*3/uL [place] # (Auto) 0.9 (0.1-1.2) X10*3/uL Eos # (Auto) 0.0 (0.0-0.4) X10*3/uL Baso # (Auto) 0.0 (0.0-0.2) X10*3/uL Abs Immat Gran (auto) 0.10 H (0.00-0.03) X10*3/uL Absolute Neuts (auto) 5.6 (2.0-8.3) x10*3/uL Absolute Nucleated RBC 0.000 (0.0-0.012) X10*3/uL Nucleated RBC % (auto) 0.0 (0.0-0.2) /100WBC Sodium 140 (135-145) mmol/L Potassium 4.6 (3.3-5.1) mmol/L Chloride 104 (96-108) mmol/L Carbon Dioxide 27 (22-29) mmol/L Anion Gap 14 (12-20) BUN 7 L (9-16) mg/dL Creatinine 0.68 (0.5-1.4) mg/dL Estim Creat Clear Calc 119.3 Estimated GFR > 60 Random Glucose 93 (60-115) mg/dL Calcium 9.8 (8.4-10.2) mg/dL Total Bilirubin 0.3 (0.0-1.0) mg/dL AST 61 H (5-37) U/L ALT 33 (0-40) U/L Alkaline Phosphatase 39 (39-117) U/L Total Protein 7.2 (6.5-8.0) g/dL Albumin 4.4 (3.5-5.0) g/dL Urine Color Urine Appearance Urine pH (5.0-9.0) Ur Specific [place] (1.005-1.025) Urine Protein (Neg-Trace) mg/dL Urine Glucose (UA) (Negative) mg/dL Urine Ketones (Negative) mg/dL Urine Blood (Negative) Urine Nitrite (Negative) Ur Leukocyte Esterase (Negative) COVID-19 (JANICE) COVID-19 Clin Com Influenza Type A (JAXON) Cancelled Influenza Type A (PCR) (Negative) Influenza Type B (JAXON) Cancelled Influenza Type B (PCR) (Negative) Influenza A & B Note Cancelled RSV RNA Qual (PCR) (Negative) SARS-CoV-2 RNA (RT-PCR) (Negative) 07/06/22 07/06/22 07/06/22 Range/Units 21:56 21:56 21:56 WBC (4.8-10.8) X10*3/uL RBC (4.60-5.80) X10*6/uL Hgb (14.0-18.0) g/dl Hct (42.0-52.0) % MCV (80.0-98.0) fL MCH (27.0-33.0) pg MCHC (31.0-36.0) g/dl RDW (11.0-16.0) % Plt Count (160-400) X10*3/uL MPV (9.4-12.4) fL Immature Gran % (Auto) (0.0-0.4) % Neut % (Auto) (45-73) % Lymph % (Auto) (20-40) % [place] % (Auto) (2-11) % Eos % (Auto) (0-4) % Baso % (Auto) (0-2) % Lymph # (Auto) (1.2-4.9) X10*3/uL [place] # (Auto) (0.1-1.2) X10*3/uL Eos # (Auto) (0.0-0.4) X10*3/uL Baso # (Auto) (0.0-0.2) X10*3/uL Abs Immat Gran (auto) (0.00-0.03) X10*3/uL Absolute Neuts (auto) (2.0-8.3) x10*3/uL Absolute Nucleated RBC (0.0-0.012) X10*3/uL Nucleated RBC % (auto) (0.0-0.2) /100WBC Sodium (135-145) mmol/L Potassium (3.3-5.1) mmol/L Chloride (96-108) mmol/L Carbon Dioxide (22-29) mmol/L Anion Gap (12-20) BUN (9-16) mg/dL Creatinine (0.5-1.4) mg/dL Estim Creat Clear Calc Estimated GFR Random Glucose (60-115) mg/dL Calcium (8.4-10.2) mg/dL Total Bilirubin (0.0-1.0) mg/dL AST (5-37) U/L ALT (0-40) U/L Alkaline Phosphatase (39-117) U/L Total Protein (6.5-8.0) g/dL Albumin (3.5-5.0) g/dL Urine Color Yellow Urine Appearance Clear Urine pH 8.0 (5.0-9.0) Ur Specific [place] 1.010 (1.005-1.025) Urine Protein Negative (Neg-Trace) mg/dL Urine Glucose (UA) Negative (Negative) mg/dL Urine Ketones Negative (Negative) mg/dL Urine Blood Negative (Negative) Urine Nitrite Negative (Negative) Ur Leukocyte Esterase Negative (Negative) COVID-19 (JANICE) Cancelled COVID-19 Clin Com Cancelled Influenza Type A (JAXON) Influenza Type A (PCR) NEGATIVE (Negative) Influenza Type B (JAXON) Influenza Type B (PCR) NEGATIVE (Negative) Influenza A & B Note RSV RNA Qual (PCR) NEGATIVE (Negative) SARS-CoV-2 RNA (RT-PCR) NEGATIVE (Negative) Independent Interpretation I performed an independent interpretation of an: EKG Radiology Impression Discussion of test interpretation with radiology: I have reviewed the radio logist's reading. Independent Historian Clinical information obtained from an independent historian. History obtained from or confirmed by: Parent (father at bedside ) and Other (patient ) poor historian External Record Review External record reviewed: Inpatient record, Outpatient record, Prior outpatient labs and Prior outpatient radiology Tests considered The following testing was considered but not selected: Consider chest CT however not needed at this time. Core Measures AMI core measures followed: Yes Measure exclusions: not indicated Critical Care Time Critical Care Time Critical Care Time: No Discharge Plan Discharge Clinical Impression: Epileptic seizure Patient Disposition: Home, Self-Care Instructions: Epilepsy (ED) Additional Instructions: Take your medications as prescribed. If you were prescribed antibiotics today, it is important that you take your medication to their entirety, do not skip any doses, do not finish them early. Follow-up with your primary care provider this week. Return to the emergency department with new or worsening symptoms. Such as fevers, chills, chest pain, shortness of breath, nausea, vomiting, dizziness, headache, vision changes, lethargy In case of emergency call 911 ?CT/CT head/brain wo IV con IMPRESSION: *? No acute intracranial pathology. *? Long-term stability of biparietal encephalomalacia and associated gliosis, more pronounced on the left with accompanying volume loss and extra-axial prominence of the atrium of the left lateral ventricle. *? 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 Prescriptions: No Action multivitamin Tablet 1 tab PO DAILY cetirizine [Zyrtec] 10 mg Tablet 10 mg PO DAILY PRN (Reason: post nasal drip) clonazepam 0.5 mg tablet 0.5 mg PO BID@1600,2000 calcium carbonate [Juan-Gest Antacid] 200 mg calcium (500 mg) Tablet,Chewable 1,000 mg PO DAILY docusate sodium [Colace] 100 mg Capsule 100 mg PO BID risperidone 0.5 mg tablet 0.5 mg PO BID diclofenac sodium 1 % Gel 1 g TOPICAL TID PRN (Reason: Pain (Scale Score 4-6)) cholecalciferol (vitamin D3) [Vitamin D3] 50 mcg (2,000 unit) Tablet 100 mcg PO DAILY omega 0-olc-qgh-fish oil [Fish Oil] 1,000 mg (120 mg-180 mg) Capsule 1 cap PO DAILY acetaminophen [Tylenol] 325 mg Tablet 650 mg PO Q6H PRN (Reason: Pain) loperamide [Imodium A-D] 2 mg Tablet 2 mg PO Q4H PRN (Reason: Loose Stool) Rx Instructions: administer after each loose stool until symptoms controlled; do not exceed 8 mg per 24 hrs clonazepam 1 mg Tablet 1 mg PO DAILY lorazepam [Ativan] 2 mg Tablet 2 mg PO DAILY PRN (Reason: Seizures) Ensure Liquid 1 ea PO DAILY Cepacol Sore Throat (maisha-men) 15-2.6 mg Lozenge 1 richard PO Q2H PRN (Reason: Sore Throat) clonidine HCl 0.1 mg Tablet 0.1 mg PO DAILY PRN (Reason: Agitation) dextromethorphan-guaifenesin 10-200 mg/5 mL Liquid 10 ml PO Q4H PRN (Reason: Congestion) Rx Instructions: or cough divalproex 500 mg Tablet,Delayed Release (Dr/Ec) 1,000 mg PO BID Qty: 120 0RF levetiracetam 500 mg Tablet 1,500 mg PO BID Qty: 180 0RF Referrals: Cydney Estrella PA [Primary Care Provider] - 2 days Stand Alone Forms: Work/School Release
--- NOTE | 2022-07-06 21:03 | ECG_ITS ---
Test Reason : seizure Blood Pressure : / mmHG Vent. Rate : 084 BPM Atrial Rate : 084 BPM P-R Int : 126 ms QRS Dur : 072 ms QT Int : 328 ms P-R-T Axes : 046 041 055 degrees QTc Int : 387 ms Normal sinus rhythm Normal ECG When compared with ECG of 12-JUN-2022 22:10, No significant change was found Referred By: Raoul Gandhi Electronically Signed By:LUIS GÓMEZ
[2022-07-06] MEDS: LORazepam 1 MG TABLET PO (21:12)
[2022-07-06] MEDS: levETIRAcetam in NaCl (iso-os) 1,000 MG/100 ML PIGGYBACK 400 MG IV (21:12)
--- NOTE | 2022-07-06 21:30 | PC.NURSE ---
Pt's V/S are stable, pt is on seizure precaution d/t recent tonic seizure.Pt has a hx of seizure. 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 Pt labs has been drawn and pt was medicated as order by the provider.
[2022-07-06 22:01] LABS: MANUAL DIFF FLAG NO
[2022-07-06 22:05] LABS: Basophils Percent Auto 0.4 % (0-2); Eosinophils Percent Auto 0.1 % (0-4); Hemoglobin 13.6 g/dl (14.0-18.0); Imm Gran Pct Auto 1.2 % (0.0-0.4); Lymphocytes Absolute Auto 1.4 X10*3/uL (1.2-4.9); Lymphocytes Percent Auto 17.7 % (20-40); Mean Corpuscular Hemoglobin 31.7 pg (27.0-33.0); Mean Corpuscular Volume 93.2 fL (80.0-98.0); Mean Platelet Volume 9.6 fL (9.4-12.4); Monocytes Absolute Auto 0.9 X10*3/uL (0.1-1.2); Monocytes Percent Auto 10.5 % (2-11); Neutrophils Absolute Auto 5.6 x10*3/uL (2.0-8.3); Neutrophils Percent Auto 70.1 % (45-73); Platelet Count 242 X10*3/uL (160-400); Red Blood Count 4.29 X10*6/uL (4.60-5.80); Red Cell Distribution Width 13.2 % (11.0-16.0); White Blood Count 8.1 X10*3/uL (4.8-10.8)
[2022-07-06 22:06] LABS: Appearance Urine Clear; Color Urine Yellow; Glucose Urine UA Negative (Negative); Leukocyte Esterase Urine Negative (Negative); Nitrite Urine Negative (Negative); Urine Blood Negative (Negative); Urine Ketones Negative (Negative); Urine Protein Negative (Neg-Trace)
--- NOTE | 2022-07-06 22:06 | PC.NURSE ---
Pt's fater was called, [phone].
[2022-07-06 22:07] VITALS: BP 142/102; PULSE 85; RESP 21; TEMP 37.3; O2SAT 98
[2022-07-06 22:18] LABS: Alanine Aminotransferase 33 U/L (0-40); Albumin Level 4.4 g/dL (3.5-5.0); Alkaline Phosphatase 39 U/L (39-117); Anion Gap 14 (12-20); Aspartate Amino Transferase 61 U/L (5-37); Bilirubin Total 0.3 mg/dL (0.0-1.0); Blood Urea Nitrogen 7 mg/dL (9-16); Calcium 9.8 mg/dL (8.4-10.2); Carbon Dioxide 27 mmol/L (22-29); Chloride 104 mmol/L (96-108); Creatinine Clr Calc Pharmacy 119.3; Estimated Glomerular Filt Rate > 60; Glucose Random 93 mg/dL (60-115); Potassium 4.6 mmol/L (3.3-5.1); Sodium 140 mmol/L (135-145); Total Protein 7.2 g/dL (6.5-8.0)
[2022-07-06 22:56] LABS: Influenza A PCR NEGATIVE (Negative); Influenza B PCR NEGATIVE (Negative); Resp Syncy Virus RNA Qual PCR NEGATIVE (Negative); SARS COV2 PCR INHOUSE NEGATIVE (Negative)
[2022-07-07 00:16] VITALS: BP 146/106; PULSE 81; RESP 12; O2SAT 99
[2022-07-07 02:00] VITALS: BP 126/90; PULSE 102; RESP 20; TEMP 37; O2SAT 96
--- NOTE | 2022-07-07 02:07 | PC.NURSE ---
Pt has been d/c, last BP was 126/90. Pt is on his based line, pt's father was at bedside until 01:30 a.m. [facility] and spoke with the care [facility]TER, in regards of his return. Meds were given for the seizure and images were obtained to clear pt home.
== END 2022-07-07 02:53 | disposition home or self-care (01) ==
PROVIDERS: Physician Assistant; Emergency Provider Internal Medicine; PCP Physician Assistant
DX: G40.909 Epilepsy, unspecified, not intractable, without status epilepticus (principal); Z79.899 Other long term (current) drug therapy; Z20.828 Contact with and (suspected) exposure to other viral communicable diseases; Z20.822 Contact with and (suspected) exposure to COVID-19
CPT/HCPCS: 0241U; 70450; 80053; 81003; 85025; 93005; 96374; 99284; 99285; J1953

== ENCOUNTER 2022-07-29 11:14 | Emergency (ER) | payer MEDICARE, MEDICAID, SELFPAY ==
[2022-07-29 11:22] VITALS: BP 141/84; BP 143/103; PULSE 85; PULSE 86; RESP 18; TEMP 36.8; O2SAT 97
--- NOTE | 2022-07-29 11:33 | ED.SEIZURE ---
HPI - Seizure General Chief Complaint: Seizure Stated Complaint: Seizure x3 today per EMS Time Seen by Provider: 07/29/22 11:25 Source: EMS Mode of arrival: EMS History of Present Illness HPI Narrative: patient with MR known history of seizure today had 3 time 30seconds MD complaint: seizure Onset (ago): unknown (lasting seconds) Witnessed: Yes - by Bystander Seizure History: Yes Place: Home Associated symptoms: denies other symptoms Related Data Home Medications Medication Instructions Recorded Confirmed calcium carbonate 200 mg calcium 1,000 mg PO DAILY 12/31/21 06/12/22 (500 mg) chewable tablet (Juan-Gest Antacid) cetirizine 10 mg tablet (Zyrtec) 10 mg PO DAILY PRN post nasal drip 12/31/21 06/12/22 cholecalciferol (vitamin D3) 50 100 mcg PO DAILY 12/31/21 06/12/22 mcg (2,000 unit) tablet (Vitamin D3) clonazepam 0.5 mg tablet 0.5 mg PO BID@1600,2000 12/31/21 06/12/22 diclofenac sodium 1 % topical gel 1 g topical TID PRN Pain (Scale 12/31/21 06/12/22 Score 4-6) docusate sodium 100 mg capsule 100 mg PO BID 12/31/21 06/12/22 (Colace) multivitamin 1 tab PO DAILY 12/31/21 06/12/22 omega 0-mty-lti-fish oil 1,000 mg 1 cap PO DAILY 12/31/21 06/12/22 (120 mg-180 mg) capsule (Fish Oil) risperidone 0.5 mg tablet 0.5 mg PO BID 12/31/21 06/12/22 acetaminophen 325 mg tablet 650 mg PO Q6H PRN Pain 04/08/22 06/12/22 (Tylenol) loperamide 2 mg tablet (Imodium 2 mg PO Q4H PRN Loose Stool 04/08/22 06/12/22 A-D) benzocaine 15 mg-menthol 2.6 mg 1 richard PO Q2H PRN Sore Throat 06/12/22 06/12/22 lozenges (Cepacol Sore Throat (benzocaine-menthol)) clonazepam 1 mg tablet 1 mg PO DAILY 06/12/22 06/12/22 clonidine HCl 0.1 mg tablet 0.1 mg PO DAILY PRN Agitation 06/12/22 06/12/22 dextromethorphan-guaifenesin 10 10 ml PO Q4H PRN Congestion 06/12/22 06/12/22 mg-200 mg/5 mL oral liquid food supplemt, lactose-reduced 1 ea PO DAILY 06/12/22 06/12/22 (Ensure oral liquid) lorazepam 2 mg tablet (Ativan) 2 mg PO DAILY PRN Seizures 06/12/22 06/12/22 Previous Rx's Medication Instructions Recorded levetiracetam 500 mg tablet 1,500 mg PO BID #180 tabs 03/04/22 divalproex 500 mg tablet,delayed 1,000 mg PO BID #120 tabs 06/14/22 release Allergies Allergy/AdvReac Type Severity Reaction Status Date / Time No Known Allergies Allergy Verified 06/13/22 10:01 [No Known Allergies*] Review of Systems Review of Systems: Yes Other (Patient with MR no other complaints) Neurologic: Denies Sensory deficit (Neuro) PMFSH Past Medical History Medical History Anxiety disorder, unspecified Epileptic seizure History of SIADH Hyponatremia Intellectual disability Seizure disorder Surgical History No pertinent past surgical history Family History Family History Other No family history of coronary artery disease Social History Social History Household Members: Other Household Members Other:: group homr Housing: House Housing Other:: [facility] Do you presently have visiting nurse or other home services: No Alcohol intake: never Patient Tobacco Use Status: Never used Tobacco Smoked in Last 30 Days: No e-Cigarette/Vaping Use: Never Used Advance Directives: Yes Advance Directives on File: Yes Advance Directives Date on File: 02/06/22 service: No Current occupational status: disabled Physical Exam Vital Signs: Vital Signs: Last Vital Signs Temp 98.7 F 07/29/22 11:38 Pulse 80 07/29/22 11:38 Resp 29 H 07/29/22 11:38 BP 133/103 H 07/29/22 11:38 Pulse Ox 96 01/25/23 11:38 O2 Del Method 07/29/22 11:38 BMI result Body Mass Index 20.0 Const: Other: Male with microcephaly and MR Orientation/consciousness: oriented to person Limitations: no limitations HEENT: Head: Yes normal to inspection Ears: external ears normal General nose exam: Normal external nose present Mouth: Normal oral and palatal mucosa present and oropharynx normal Throat: Yes posterior oropharynx normal Eyes: General: appearance normal, both eyes and all related structures Neck: Other: supple Neck: Yes normal visual inspection Chest: Chest palpation & inspection: normal inspection of the chest Resp: Auscultation: clear to auscultation bilaterally Cardio: Jugular venous distension: no JVD Rate: regular rate Rhythm: regular rhythm Heart sounds: S1 normal heart sound present and S2 normal heart sound present GI: Inspection: Yes normal to inspection Palpation (GI): Soft to palpation, nontender and No hepatosplenomegaly present Auscultation: normal bowel sounds : General: Yes no CVA tenderness Back/Spine/Pelvis: Back: no CVA tenderness Skin: General skin exam: no rashes or lesions noted Neuro: General: oriented to person Cranial nerves: Yes CN's II-XII intact bilaterally Motor exam (neuro): 5/5 motor strength present throughout Sensory Exam: No Sensory deficit (Neuro) Extrem: General: Yes normal to inspection Psych: Appearance: grossly normal Course Reevaluation(s) Reevaluation #1: patient with tonic clonic seizure Time: 11:51 Reevaluation #2: No further seizures will dc home Time: 15:31 Medications Administered Discontinued Medications Generic Name Dose Route Start Last Admin Trade Name Mario PRN Reason Stop Dose Admin Lorazepam 1 mg 07/29/22 11:50 07/29/22 11:55 Lorazepam 2 Mg/Ml Vial IVPUSH 07/29/22 11:51 1 mg ONCE ONE Administration Medical Decision Making Differential Diagnosis status epilepticus, medication noncompliance, electrolyte abnormality Lab Data [facility] Lab Attestation statement: I reviewed the patient's lab results. 07/29/22 14:16 07/29/22 14:16 Labs: Lab Results 07/29/22 07/29/22 07/29/22 Range/Units 14:16 14:16 14:16 WBC 5.7 (4.8-10.8) X10*3/uL RBC 4.86 (4.60-5.80) X10*6/uL Hgb 15.6 (14.0-18.0) g/dl Hct 45.3 (42.0-52.0) % MCV 93.2 (80.0-98.0) fL MCH 32.1 (27.0-33.0) pg MCHC 34.4 (31.0-36.0) g/dl RDW 13.5 (11.0-16.0) % Plt Count 157 L D (160-400) X10*3/uL MPV 10.3 (9.4-12.4) fL Immature Gran % (Auto) 0.7 H (0.0-0.4) % Neut % (Auto) 63.1 (45-73) % Lymph % (Auto) 23.0 (20-40) % [place] % (Auto) 10.3 (2-11) % Eos % (Auto) 2.4 (0-4) % Baso % (Auto) 0.5 (0-2) % Lymph # (Auto) 1.3 (1.2-4.9) X10*3/uL [place] # (Auto) 0.6 (0.1-1.2) X10*3/uL Eos # (Auto) 0.1 (0.0-0.4) X10*3/uL Baso # (Auto) 0.0 (0.0-0.2) X10*3/uL Abs Immat Gran (auto) 0.04 H (0.00-0.03) X10*3/uL Absolute Neuts (auto) 3.6 (2.0-8.3) x10*3/uL Absolute Nucleated RBC 0.000 (0.0-0.012) X10*3/uL Nucleated RBC % (auto) 0.0 (0.0-0.2) /100WBC Sodium 140 (135-145) mmol/L Potassium 4.1 (3.3-5.1) mmol/L Chloride 103 (96-108) mmol/L Carbon Dioxide 26 (22-29) mmol/L Anion Gap 15 (12-20) BUN 8 L (9-16) mg/dL Creatinine 0.77 (0.5-1.4) mg/dL Estim Creat Clear Calc 90.9 Estimated GFR > 60 Random Glucose 92 (60-115) mg/dL Calcium 10.2 (8.4-10.2) mg/dL Valproic Acid 94.8 (50.0-100.0) mcg/mL Discharge Plan Discharge Clinical Impression: Epileptic seizure, Generalized seizure Patient Disposition: Home, Self-Care Instructions: Epilepsy (ED) Prescriptions: No Action multivitamin Tablet 1 tab PO DAILY cetirizine [Zyrtec] 10 mg Tablet 10 mg PO DAILY PRN (Reason: post nasal drip) clonazepam 0.5 mg tablet 0.5 mg PO BID@1600,2000 calcium carbonate [Juan-Gest Antacid] 200 mg calcium (500 mg) Tablet,Chewable 1,000 mg PO DAILY docusate sodium [Colace] 100 mg Capsule 100 mg PO BID risperidone 0.5 mg tablet 0.5 mg PO BID diclofenac sodium 1 % Gel 1 g TOPICAL TID PRN (Reason: Pain (Scale Score 4-6)) cholecalciferol (vitamin D3) [Vitamin D3] 50 mcg (2,000 unit) Tablet 100 mcg PO DAILY omega 5-nmd-yox-fish oil [Fish Oil] 1,000 mg (120 mg-180 mg) Capsule 1 cap PO DAILY acetaminophen [Tylenol] 325 mg Tablet 650 mg PO Q6H PRN (Reason: Pain) loperamide [Imodium A-D] 2 mg Tablet 2 mg PO Q4H PRN (Reason: Loose Stool) Rx Instructions: administer after each loose stool until symptoms controlled; do not exceed 8 mg per 24 hrs clonazepam 1 mg Tablet 1 mg PO DAILY lorazepam [Ativan] 2 mg Tablet 2 mg PO DAILY PRN (Reason: Seizures) Ensure Liquid 1 ea PO DAILY Cepacol Sore Throat (maisha-men) 15-2.6 mg Lozenge 1 richard PO Q2H PRN (Reason: Sore Throat) clonidine HCl 0.1 mg Tablet 0.1 mg PO DAILY PRN (Reason: Agitation) dextromethorphan-guaifenesin 10-200 mg/5 mL Liquid 10 ml PO Q4H PRN (Reason: Congestion) Rx Instructions: or cough divalproex 500 mg Tablet,Delayed Release (Dr/Ec) 1,000 mg PO BID Qty: 120 0RF levetiracetam 500 mg Tablet 1,500 mg PO BID Qty: 180 0RF Referrals: Cydney Estrella PA [Primary Care Provider] - 1 week
[2022-07-29 11:38] VITALS: BP 133/103; PULSE 80; RESP 29; TEMP 37.1; O2SAT 96
--- NOTE | 2022-07-29 11:40 | PC.NURSE ---
patient at baseline , developmentally delayed . cele . heart rate regular at 87 beats per minute . breathing even and unlabored . lungs clear . skin pink warm and dry . patient placed on product builder . IV placed in right A.C . seizure pads placed . bed at lowest possible position . patient aware of plan of care .
[2022-07-29] MEDS: LORazepam 2 MG/ML VIAL 1 MG IVPUSH (11:55)
--- NOTE | 2022-07-29 11:55 | PC.NURSE ---
PT NOTED TO HAVE A 25-30 SEC SEIZURE. MEDICATED CHARTED
[2022-07-29 14:20] LABS: MANUAL DIFF FLAG NO
[2022-07-29 14:22] LABS: Basophils Percent Auto 0.5 % (0-2); Eosinophils Absolute Auto 0.1 X10*3/uL (0.0-0.4); Eosinophils Percent Auto 2.4 % (0-4); Hematocrit 45.3 % (42.0-52.0); Hemoglobin 15.6 g/dl (14.0-18.0); Imm Gran Abs Auto 0.04 X10*3/uL (0.00-0.03); Imm Gran Pct Auto 0.7 % (0.0-0.4); Lymphocytes Absolute Auto 1.3 X10*3/uL (1.2-4.9); Mean Corpuscular HGB Conc 34.4 g/dl (31.0-36.0); Mean Corpuscular Hemoglobin 32.1 pg (27.0-33.0); Mean Corpuscular Volume 93.2 fL (80.0-98.0); Mean Platelet Volume 10.3 fL (9.4-12.4); Monocytes Absolute Auto 0.6 X10*3/uL (0.1-1.2); Monocytes Percent Auto 10.3 % (2-11); Neutrophils Absolute Auto 3.6 x10*3/uL (2.0-8.3); Neutrophils Percent Auto 63.1 % (45-73); Platelet Count 157 X10*3/uL (160-400); Red Blood Count 4.86 X10*6/uL (4.60-5.80); Red Cell Distribution Width 13.5 % (11.0-16.0); White Blood Count 5.7 X10*3/uL (4.8-10.8)
[2022-07-29 15:00] LABS: Valproate 94.8 mcg/mL (50.0-100.0)
[2022-07-29 15:06] LABS: Anion Gap 15 (12-20); Blood Urea Nitrogen 8 mg/dL (9-16); Calcium 10.2 mg/dL (8.4-10.2); Carbon Dioxide 26 mmol/L (22-29); Chloride 103 mmol/L (96-108); Creatinine Clr Calc Pharmacy 90.9; Estimated Glomerular Filt Rate > 60; Glucose Random 92 mg/dL (60-115); Potassium 4.1 mmol/L (3.3-5.1); Sodium 140 mmol/L (135-145)
--- NOTE | 2022-07-29 17:42 | MHC.EDTECH ---
PT BEING TRANSFERRED VIA AMBULANCE BACK TO HIS SKILLED NURSING
== END 2022-07-29 18:07 | disposition home or self-care (01) ==
PROVIDERS: Emergency Provider Emergency Medicine; PCP Physician Assistant
DX: G40.409 Other generalized epilepsy and epileptic syndromes, not intractable, without status epilepticus (principal); Z79.899 Other long term (current) drug therapy
CPT/HCPCS: 36415; 80048; 80164; 85025; 96374; 99284; J2060

== ENCOUNTER 2022-09-29 17:14 | Emergency (ER) | payer MEDICARE, MEDICAID, SELFPAY ==
--- NOTE | 2022-09-29 17:27 | ED_ITS ---
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 He has had multiple admissions for seizure disorder and status epilepticus.? Patient is currently taking Depakote a 1000 mg twice a day.? He is also taking Keppra 1500 mg twice a day.? At this time patient tells me he feels well has no complaints.? Patient alert and oriented x3 at this time.? Denies chest pain shortness of breath, headache, vision changes, dizziness, weakness, nausea, vomiting, abdominal pain, loss of bladder or bowel control.? Patient's vital signs are stable.? He tells me he remembers this seizure and did not hit his head. He is not on blood thinners. Seizure History: Yes Related Data Home Medications Medication Instructions Recorded Confirmed calcium carbonate 200 mg calcium 1,000 mg PO DAILY 12/31/21 06/12/22 (500 mg) chewable tablet (Juan-Gest Antacid) cetirizine 10 mg tablet (Zyrtec) 10 mg PO DAILY PRN post nasal drip 12/31/21 06/12/22 cholecalciferol (vitamin D3) 50 100 mcg PO DAILY 12/31/21 06/12/22 mcg (2,000 unit) tablet (Vitamin D3) clonazepam 0.5 mg tablet 0.5 mg PO BID@1600,2000 12/31/21 06/12/22 diclofenac sodium 1 % topical gel 1 g topical TID PRN Pain (Scale 12/31/21 06/12/22 Score 4-6) docusate sodium 100 mg capsule 100 mg PO BID 12/31/21 06/12/22 (Colace) multivitamin 1 tab PO DAILY 12/31/21 06/12/22 omega 8-erq-tob-fish oil 1,000 mg 1 cap PO DAILY 12/31/21 06/12/22 (120 mg-180 mg) capsule (Fish Oil) risperidone 0.5 mg tablet 0.5 mg PO BID 12/31/21 06/12/22 acetaminophen 325 mg tablet 650 mg PO Q6H PRN Pain 04/08/22 06/12/22 (Tylenol) loperamide 2 mg tablet (Imodium 2 mg PO Q4H PRN Loose Stool 04/08/22 06/12/22 A-D) benzocaine 15 mg-menthol 2.6 mg 1 richard PO Q2H PRN Sore Throat 06/12/22 06/12/22 lozenges (Cepacol Sore Throat (benzocaine-menthol)) clonazepam 1 mg tablet 1 mg PO DAILY 06/12/22 06/12/22 clonidine HCl 0.1 mg tablet 0.1 mg PO DAILY PRN Agitation 06/12/22 06/12/22 dextromethorphan-guaifenesin 10 10 ml PO Q4H PRN Congestion 06/12/22 06/12/22 mg-200 mg/5 mL oral liquid food supplemt, lactose-reduced 1 ea PO DAILY 06/12/22 06/12/22 (Ensure oral liquid) lorazepam 2 mg tablet (Ativan) 2 mg PO DAILY PRN Seizures 06/12/22 06/12/22 Previous Rx's Medication Instructions Recorded levetiracetam 500 mg tablet 1,500 mg PO BID #180 tabs 03/04/22 divalproex 500 mg tablet,delayed 1,000 mg PO BID #120 tabs 06/14/22 release Allergies Allergy/AdvReac Type Severity Reaction Status Date / Time No Known Allergies Allergy Verified 06/13/22 10:01 [No Known Allergies*] Review of Systems Review of Systems: Constitutional : No Weight loss, No Fever, No Chills, No Fatigue, No Malaise ENT/Mouth : No sore throat, No Rhinorrhea Eyes: No Eye Pain, No Swelling, No Redness Cardiovascular : No Chest Pain, No SOB, No Dyspnea on Exertion, No Orthopnea, No Edema, No Palpitations Respiratory : No Cough, No Sputum, No Wheezing Gastrointestinal : No Nausea, No Vomiting, No Diarrhea, No Constipation, No abdominal Pain, No Hematochezia, No Melena Genitourinary : No Dysuria, No Urinary Frequency, No Hematuria, Musculoskeletal : No joint pain, No Myalgias, No Joint Swelling Skin : No Skin Lesions, No rash Neuro : No Weakness, No Numbness, No Dizziness, No Headache Psych : No Anxiety/Panic, No Depression Heme/Lymph: No Bruising, No Bleeding,No Lymphadenopathy Yes all other systems are reviewed and are negative [facility] Past Medical History Attestation statement: The following information was validated with the patient. Source: old records reviewed and nursing notes reviewed Medical History Anxiety disorder, unspecified Epileptic seizure History of SIADH Hyponatremia Intellectual disability Seizure disorder Surgical History No pertinent past surgical history Family History Family History Other No family history of coronary artery disease Social History Social History Household Members: Other Household Members Other:: group homr Housing: House Housing Other:: [facility] Do you presently have visiting nurse or other home services: No Alcohol intake: never Patient Tobacco Use Status: Never used Tobacco e-Cigarette/Vaping Use: Never Used Advance Directives: Yes Advance Directives on File: Yes Advance Directives Date on File: 02/06/22 service: No Current occupational status: disabled Physical Exam Vital Signs: Vital Signs: Last Vital Signs Temp 98.4 F 09/29/22 18:13 Pulse 88 09/29/22 18:13 Resp 18 09/29/22 18:13 BP 142/100 H 09/29/22 18:13 Pulse Ox 98 09/29/22 18:13 O2 Del Method Room Air 09/29/22 18:13 BMI result Body Mass Index 24.4 slightly hypertensive. Appearance: Alert.? Oriented X3.? No acute distress.? Head:? Normocephalic, atraumatic, no step-offs or deformities Eyes: Pupils equal, round and reactive to light.? Extraocular movements intact pain-free. ENT: Pharynx normal.? Neck: Normal inspection.? Neck supple.? CVS: Normal heart rate and rhythm.? Pulses normal.? Respiratory: No respiratory distress.? Breath sounds normal.? Abdomen: Soft and nontender.? Skin: Skin warm and dry.? Normal skin color.? Normal skin turgor.? Extremities: No lower extremity edema.? No calf ttp.? 5/5 strength to bilateral upper and lower extremities Neuro: Oriented X 3.? No motor deficit.? No sensory deficit. CN 2-12 intact .? Normal dzvydq-lo-rucu, vxnm-ro-wpmd.? Negative pronator drift. Course Reevaluation(s) Reevaluation #1: CBC appears to be around patient's baseline. Chemistry with no acute findings requiring intervention. Patient alert and oriented x4. Waiting for his ride. No seizure-like activity while in the department. Tells me he feels great. Educated patient on diagnosis and treatment plan, answered all question, patient verbalizes understanding. At this time patient will be discharged home, advised to return with new or worsening symptoms. Educated on worrisome signs and symptoms and when to return. At this time I feel comfortable discharge home. 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 No headstrike Physical examination benign.? Neuro nonfocal.? Cerebellar intact. Likely behavioral seizure vs epilepsy/breakthrough seizure however, Will rule ou t electrolyte abnormalities, infection that could be causing seizures.? Will obtain head CT as I am unsure patient his head will rule out intracranial hemorrhage/stroke. Plan basic labs. Will monitor. Differential Diagnosis Differential Diagnoses: The differential diagnosis associated with the presentation includes Likely behavioral seizure vs epilepsy/breakthrough seizure however, Will rule out electrolyte abnormalities, infection that could be causing seizures.? Will obtain head CT as I am unsure patient his head will rule out intracranial hemorrhage/stroke. Admission/Observation Consideration of admission/observation: Escalation of care including admiss ion/observation considered Lab Data 09/29/22 17:47 09/29/22 17:47 Labs: Lab Results 09/29/22 09/29/22 Range/Units 17:47 17:47 WBC 8.2 (4.8-10.8) X10*3/uL RBC 4.32 L (4.60-5.80) X10*6/uL Hgb 13.7 L (14.0-18.0) g/dl Hct 41.1 L (42.0-52.0) % MCV 95.1 (80.0-98.0) fL MCH 31.7 (27.0-33.0) pg MCHC 33.3 (31.0-36.0) g/dl RDW 13.6 (11.0-16.0) % Plt Count 164 (160-400) X10*3/uL MPV 10.7 (9.4-12.4) fL Immature Gran % (Auto) 0.4 (0.0-0.4) % Neut % (Auto) 73.8 H (45-73) % Lymph % (Auto) 14.0 L (20-40) % [place] % (Auto) 11.4 H (2-11) % Eos % (Auto) 0.0 (0-4) % Baso % (Auto) 0.4 (0-2) % Lymph # (Auto) 1.1 L (1.2-4.9) X10*3/uL [place] # (Auto) 0.9 (0.1-1.2) X10*3/uL Eos # (Auto) 0.0 (0.0-0.4) X10*3/uL Baso # (Auto) 0.0 (0.0-0.2) X10*3/uL Abs Immat Gran (auto) 0.03 (0.00-0.03) X10*3/uL Absolute Neuts (auto) 6.0 (2.0-8.3) x10*3/uL Absolute Nucleated RBC 0.000 (0.0-0.012) X10*3/uL Nucleated RBC % (auto) 0.0 (0.0-0.2) /100WBC Sodium 139 (135-145) mmol/L Potassium 4.3 (3.3-5.1) mmol/L Chloride 104 (96-108) mmol/L Carbon Dioxide 25 (22-29) mmol/L Anion Gap 14 (12-20) BUN 9 (9-16) mg/dL Creatinine 0.69 (0.5-1.4) mg/dL Estim Creat Clear Calc 122.0 Estimated GFR > 60 Random Glucose 91 (60-115) mg/dL Calcium 9.2 D (8.4-10.2) mg/dL Total Bilirubin 0.4 (0.0-1.0) mg/dL AST 26 (5-37) U/L ALT 28 (0-40) U/L Alkaline Phosphatase 39 (39-117) U/L Total Protein 6.5 (6.5-8.0) g/dL Albumin 4.0 (3.5-5.0) g/dL Core Measures AMI core measures followed: Yes Measure exclusions: not indicated Critical Care Time Critical Care Time Critical Care Time: No Discharge Plan Discharge Clinical Impression: Epileptic seizure Patient Disposition: Still a Patient Instructions: Epilepsy (ED), Recurrent Seizures in Adults (ED) Additional Instructions: Take your medications as prescribed. If you were prescribed antibiotics today, it is important that you take your medication to their entirety, do not skip any doses, do not finish them early. Follow-up with your primary care provider this week. Return to the emergency department with new or worsening symptoms. Such as fevers, chills, chest pain, shortness of breath, nausea, vomiting, dizziness, headache, vision changes, lethargy In case of emergency call 911 Prescriptions: No Action multivitamin Tablet 1 tab PO DAILY cetirizine [Zyrtec] 10 mg Tablet 10 mg PO DAILY PRN (Reason: post nasal drip) clonazepam 0.5 mg tablet 0.5 mg PO BID@1600,2000 calcium carbonate [Juan-Gest Antacid] 200 mg calcium (500 mg) Tablet,Chewable 1,000 mg PO DAILY docusate sodium [Colace] 100 mg Capsule 100 mg PO BID risperidone 0.5 mg tablet 0.5 mg PO BID diclofenac sodium 1 % Gel 1 g TOPICAL TID PRN (Reason: Pain (Scale Score 4-6)) cholecalciferol (vitamin D3) [Vitamin D3] 50 mcg (2,000 unit) Tablet 100 mcg PO DAILY omega 9-qcd-vqu-fish oil [Fish Oil] 1,000 mg (120 mg-180 mg) Capsule 1 cap PO DAILY acetaminophen [Tylenol] 325 mg Tablet 650 mg PO Q6H PRN (Reason: Pain) loperamide [Imodium A-D] 2 mg Tablet 2 mg PO Q4H PRN (Reason: Loose Stool) Rx Instructions: administer after each loose stool until symptoms controlled; do not exceed 8 mg per 24 hrs clonazepam 1 mg Tablet 1 mg PO DAILY lorazepam [Ativan] 2 mg Tablet 2 mg PO DAILY PRN (Reason: Seizures) Ensure Liquid 1 ea PO DAILY Cepacol Sore Throat (maisha-men) 15-2.6 mg Lozenge 1 richard PO Q2H PRN (Reason: Sore Throat) clonidine HCl 0.1 mg Tablet 0.1 mg PO DAILY PRN (Reason: Agitation) dextromethorphan-guaifenesin 10-200 mg/5 mL Liquid 10 ml PO Q4H PRN (Reason: Congestion) Rx Instructions: or cough divalproex 500 mg Tablet,Delayed Release (Dr/Ec) 1,000 mg PO BID Qty: 120 0RF levetiracetam 500 mg Tablet 1,500 mg PO BID Qty: 180 0RF Referrals: ED Physician,Generic [Physician] - 2 days
[2022-09-29 17:31] VITALS: BP 137/100; BP 155/128; PULSE 82; PULSE 83; RESP 16; TEMP 36.9; O2SAT 98; O2SAT 99; BMI 24.4
[2022-09-29 17:53] LABS: MANUAL DIFF FLAG NO
[2022-09-29 18:00] LABS: Basophils Percent Auto 0.4 % (0-2); Hematocrit 41.1 % (42.0-52.0); Hemoglobin 13.7 g/dl (14.0-18.0); Imm Gran Abs Auto 0.03 X10*3/uL (0.00-0.03); Imm Gran Pct Auto 0.4 % (0.0-0.4); Lymphocytes Absolute Auto 1.1 X10*3/uL (1.2-4.9); Mean Corpuscular HGB Conc 33.3 g/dl (31.0-36.0); Mean Corpuscular Hemoglobin 31.7 pg (27.0-33.0); Mean Corpuscular Volume 95.1 fL (80.0-98.0); Mean Platelet Volume 10.7 fL (9.4-12.4); Monocytes Absolute Auto 0.9 X10*3/uL (0.1-1.2); Monocytes Percent Auto 11.4 % (2-11); Neutrophils Percent Auto 73.8 % (45-73); Platelet Count 164 X10*3/uL (160-400); Red Blood Count 4.32 X10*6/uL (4.60-5.80); Red Cell Distribution Width 13.6 % (11.0-16.0); White Blood Count 8.2 X10*3/uL (4.8-10.8)
[2022-09-29] MEDS: LORazepam 1 MG TABLET PO (18:03)
--- NOTE | 2022-09-29 18:07 | MHC.EDTECH ---
Upon arrival to the Emergency Department pt was soiled in urine and stool. This PCT and PCT Heidi cleaned pt up and new bed linens in place. Pt resting quietly watching tv, call baltazar within reach.
--- NOTE | 2022-09-29 18:09 | PC.NURSE ---
patient resting comfortably in bed eating a tuna sandwich. denies pain at this time. call baltazar within reach
[2022-09-29 18:13] VITALS: BP 142/100; PULSE 88; RESP 18; TEMP 36.9; O2SAT 98
[2022-09-29 18:22] LABS: Alanine Aminotransferase 28 U/L (0-40); Alkaline Phosphatase 39 U/L (39-117); Anion Gap 14 (12-20); Aspartate Amino Transferase 26 U/L (5-37); Bilirubin Total 0.4 mg/dL (0.0-1.0); Blood Urea Nitrogen 9 mg/dL (9-16); Calcium 9.2 mg/dL (8.4-10.2); Carbon Dioxide 25 mmol/L (22-29); Chloride 104 mmol/L (96-108); Estimated Glomerular Filt Rate > 60; Glucose Random 91 mg/dL (60-115); Potassium 4.3 mmol/L (3.3-5.1); Sodium 139 mmol/L (135-145); Total Protein 6.5 g/dL (6.5-8.0)
--- NOTE | 2022-09-29 19:14 | PC.NURSE ---
assumed care of patient at 1900 - patient resting comfortably on stretcher. ringing call baltazar appropriately, waiting for ED provider eval of lab results. will CTM.
--- NOTE | 2022-09-29 20:02 | PC.NURSE ---
patient's dad Allen called, given update and let him know patient is ready for discharge. father provided this RN with House Nurse's phone number from the shelter. export documents clerk setting up transportation, staff member coming to pick patient up and bring him back home. Chase aware of plan.
== END 2022-09-29 20:31 | disposition home or self-care (01) ==
PROVIDERS: Physician Assistant; Emergency Provider Student in an Organized Health Care Education/Training Program
DX: G40.909 Epilepsy, unspecified, not intractable, without status epilepticus (principal)
CPT/HCPCS: 36415; 80053; 85025; 99283

== ENCOUNTER 2022-11-02 16:34 | Emergency (ER) | payer MEDICARE, MEDICAID, SELFPAY ==
--- NOTE | 2022-11-02 16:43 | ED_ITS ---
HPI - Neuro Symptoms/Deficit General Chief Complaint: Seizure Stated Complaint: 3 SEIZURES @ [facility] PER EMS Time Seen by Provider: 11/02/22 16:35 Source: patient and EMS Limitations: other (Cognitive delay secondary to anoxic brain injury at ) History of Present Illness HPI Narrative: Patient comes to the emergency room via EMS from his [facility]. According to the [facility], patient had 3 seizures today. Patient states that he feels well, denies any injuries. According to the staff, patient was awake and alert in between seizures at his baseline. Patient states that he feels well and has no complaints. Related Data Home Medications Medication Instructions Recorded Confirmed calcium carbonate 200 mg calcium 1,000 mg PO DAILY 12/31/21 06/12/22 (500 mg) chewable tablet (Juan-Gest Antacid) cetirizine 10 mg tablet (Zyrtec) 10 mg PO DAILY PRN post nasal drip 12/31/21 06/12/22 cholecalciferol (vitamin D3) 50 100 mcg PO DAILY 12/31/21 06/12/22 mcg (2,000 unit) tablet (Vitamin D3) clonazepam 0.5 mg tablet 0.5 mg PO BID@1600,2000 12/31/21 06/12/22 diclofenac sodium 1 % topical gel 1 g topical TID PRN Pain (Scale 12/31/2103/26 Score 4-6) docusate sodium 100 mg capsule 100 mg PO BID 12/31/21 06/12/22 (Colace) multivitamin 1 tab PO DAILY 12/31/21 06/12/22 omega 1-iyl-ene-fish oil 1,000 mg 1 cap PO DAILY 12/31/21 06/12/22 (120 mg-180 mg) capsule (Fish Oil) risperidone 0.5 mg tablet 0.5 mg PO BID 12/31/21 06/12/22 acetaminophen 325 mg tablet 650 mg PO Q6H PRN Pain 04/08/22 06/12/22 (Tylenol) loperamide 2 mg tablet (Imodium 2 mg PO Q4H PRN Loose Stool 04/08/22 06/12/22 A-D) benzocaine 15 mg-menthol 2.6 mg 1 richard PO Q2H PRN Sore Throat 06/12/22 06/12/22 lozenges (Cepacol Sore Throat (benzocaine-menthol)) clonazepam 1 mg tablet 1 mg PO DAILY 06/12/22 06/12/22 clonidine HCl 0.1 mg tablet 0.1 mg PO DAILY PRN Agitation 06/12/22 06/12/22 dextromethorphan-guaifenesin 10 10 ml PO Q4H PRN Congestion 06/12/22 06/12/22 mg-200 mg/5 mL oral liquid food supplemt, lactose-reduced 1 ea PO DAILY 06/12/22 06/12/22 (Ensure oral liquid) lorazepam 2 mg tablet (Ativan) 2 mg PO DAILY PRN Seizures 06/12/22 06/12/22 Previous Rx's Medication Instructions Recorded levetiracetam 500 mg tablet 1,500 mg PO BID #180 tabs 03/04/22 divalproex 500 mg tablet,delayed 1,000 mg PO BID #120 tabs 06/14/22 release Allergies Allergy/AdvReac Type Severity Reaction Status Date / Time No Known Allergies Allergy Verified 11/02/22 16:47 [No Known Allergies*] Review of Systems Review of Systems: Constitutional : No Weight loss, No Fever, No Chills, No Night Sweats, No Fatigue, No Malaise ENT/Mouth : No Hearing loss, No Ear Pain, No Nasal Congestion, No Sinus Pain, No Hoarseness, No sore throat, No Rhinorrhea, No Swallowing Difficulty Eyes: No Eye Pain, No Swelling, No Redness, No Foreign Body, No Discharge, No Vision Changes Cardiovascular : No Chest Pain, No SOB, No Dyspnea on Exertion, No Orthopnea, No Edema, No Palpitations Respiratory : No Cough, No Sputum, No Wheezing, No Smoke Exposure, No Dyspnea Gastrointestinal : No Nausea, No Vomiting, No Diarrhea, No Constipation, No abdominal Pain, No Hematochezia, No Melena Genitourinary : no irregular bleeding, No Dysuria, No Urinary Frequency, No Hematuria, No Urinary Incontinence, No Urgency, No Flank Pain, No Urinary Flow Changes, No Hesitancy Musculoskeletal : No joint pain, No Myalgias, No Joint Swelling Skin : No Skin Lesions, No rash Neuro : No Weakness, No Numbness, No Paresthesias, No Loss of Consciousness, No Dizziness, No Headache, her [facility] staff, patient had 3 seizures Psych : No Anxiety/Panic, No Depression, No SI/HI/AH/VH, No Social Issues, Heme/Lymph: No Bruising, No Bleeding,No Lymphadenopathy Endocrine : No Polyuria, No Polydipsia, No Temperature Intolerance [facility] Past Medical History Medical History Anxiety disorder, unspecified Epileptic seizure History of SIADH Hyponatremia Intellectual disability Seizure disorder Surgical History No pertinent past surgical history Family History Family History Other No family history of coronary artery disease Social History Social History Household Members: Other Household Members Other:: group homr Housing: House Housing Other:: [facility] Do you presently have visiting nurse or other home services: No Alcohol intake: never Patient Tobacco Use Status: Never used Tobacco e-Cigarette/Vaping Use: Never Used Advance Directives: Yes Advance Directives on File: Yes Advance Directives Date on File: 02/06/22 service: No Current occupational status: disabled Physical Exam Vital Signs: Vital Signs: Last Vital Signs Temp 98.4 F 11/02/22 19:44 Pulse 96 11/02/22 19:44 Resp 16 11/02/22 19:44 BP 152/96 H 11/02/22 19:44 Pulse Ox 98 11/02/22 19:44 O2 Del Method Room Air 11/02/22 19:44 BMI result Body Mass Index 28.7 Const: Other: Appearance: Alert. Oriented X3. No acute distress. Eyes: Pupils equal, round and reactive to light. ENT: Pharynx normal. No tongue bites Neck: Normal inspection. Neck supple. No lymph nodes noted. No crepitus CVS: Normal heart rate and rhythm. Pulses normal. Normal S1 and S2 Respiratory: No respiratory distress. Breath sounds normal. No Wheezing. No rales Abdomen: Soft and nontender. No rigidity. No distention. Skin: Skin warm and dry. Normal skin color. Normal skin turgor. Extremities: No lower extremity edema. No Lacerations. No Rash Neuro: Oriented X 3. No motor deficit. No sensory deficit. Moving all extremities. No slurred speech. CN 2 through 12 grossly intact Psych: calm, cooperative, normal affect Course Course Course Narrative: -of patient's labs are pending. Keppra, Depakote levels might not come back today. -patient is at baseline, no injuries Medical Decision Making Medical Decision Making [facility] Narrative: -valproic acid levels are therapeutic. Keppra levels are pending, they will return in couple of days. Patient's neurologist can follow up with the levels. -patient's white blood cell count normal, lactic normal. Patient has not had any seizure activity here in the emergency room. I am not convinced that the patient had 3 tonic-clonic seizures in 1 day, it is possible that he may have had focal versus pseudoseizures. -patient has been doing well in the emergency room, asymptomatic. Patient before discharge Lab Data [facility] Lab Attestation statement: I reviewed the patient's lab results. 11/02/22 20:09 11/02/22 17:03 Labs: Lab Results 11/02/22 11/02/22 11/02/22 Range/Units 17:03 17:03 17:03 WBC (4.8-10.8) X10*3/uL RBC (4.60-5.80) X10*6/uL Hgb (14.0-18.0) g/dl Hct (42.0-52.0) % MCV (80.0-98.0) fL MCH (27.0-33.0) pg MCHC (31.0-36.0) g/dl RDW (11.0-16.0) % Plt Count (160-400) X10*3/uL MPV (9.4-12.4) fL Immature Gran % (Auto) (0.0-0.4) % Neut % (Auto) (45-73) % Lymph % (Auto) (20-40) % [place] % (Auto) (2-11) % Eos % (Auto) (0-4) % Baso % (Auto) (0-2) % Lymph # (Auto) (1.2-4.9) X10*3/uL [place] # (Auto) (0.1-1.2) X10*3/uL Eos # (Auto) (0.0-0.4) X10*3/uL Baso # (Auto) (0.0-0.2) X10*3/uL Abs Immat Gran (auto) (0.00-0.03) X10*3/uL Absolute Neuts (auto) (2.0-8.3) x10*3/uL Absolute Nucleated RBC (0.0-0.012) X10*3/uL Nucleated RBC % (auto) (0.0-0.2) /100WBC Sodium 135 (135-145) mmol/L Potassium 4.4 (3.3-5.1) mmol/L Chloride 101 (96-108) mmol/L Carbon Dioxide 24 (22-29) mmol/L Anion Gap 14 (12-20) BUN 10 (9-16) mg/dL Creatinine 0.79 (0.5-1.4) mg/dL Estim Creat Clear Calc 110.0 Estimated GFR > 60 Random Glucose 82 (60-115) mg/dL Lactic Acid 1.0 (0.5-2.0) mmol/L Calcium 10.0 D (8.4-10.2) mg/dL Total Bilirubin 0.4 (0.0-1.0) mg/dL Direct Bilirubin 0.1 (0.0-0.5) mg/dL AST 26 (5-37) U/L ALT 21 (0-40) U/L Alkaline Phosphatase 41 (39-117) U/L Total Protein 7.3 (6.5-8.0) g/dL Albumin 4.6 (3.5-5.0) g/dL Valproic Acid 93.5 (50.0-100.0) mcg/mL 11/02/22 Range/Units 20:09 WBC 8.8 (4.8-10.8) X10*3/uL RBC 4.37 L (4.60-5.80) X10*6/uL Hgb 14.2 (14.0-18.0) g/dl Hct 40.8 L (42.0-52.0) % MCV 93.4 (80.0-98.0) fL MCH 32.5 (27.0-33.0) pg MCHC 34.8 (31.0-36.0) g/dl RDW 13.8 (11.0-16.0) % Plt Count 189 (160-400) X10*3/uL MPV 9.8 (9.4-12.4) fL Immature Gran % (Auto) 0.6 H (0.0-0.4) % Neut % (Auto) 67.1 (45-73) % Lymph % (Auto) 21.0 (20-40) % [place] % (Auto) 10.9 (2-11) % Eos % (Auto) 0.1 (0-4) % Baso % (Auto) 0.3 (0-2) % Lymph # (Auto) 1.9 (1.2-4.9) X10*3/uL [place] # (Auto) 1.0 (0.1-1.2) X10*3/uL Eos # (Auto) 0.0 (0.0-0.4) X10*3/uL Baso # (Auto) 0.0 (0.0-0.2) X10*3/uL Abs Immat Gran (auto) 0.05 H (0.00-0.03) X10*3/uL Absolute Neuts (auto) 5.9 (2.0-8.3) x10*3/uL Absolute Nucleated RBC 0.000 (0.0-0.012) X10*3/uL Nucleated RBC % (auto) 0.0 (0.0-0.2) /100WBC Sodium (135-145) mmol/L Potassium (3.3-5.1) mmol/L Chloride (96-108) mmol/L Carbon Dioxide (22-29) mmol/L Anion Gap (12-20) BUN (9-16) mg/dL Creatinine (0.5-1.4) mg/dL Estim Creat Clear Calc Estimated GFR Random Glucose (60-115) mg/dL Lactic Acid (0.5-2.0) mmol/L Calcium (8.4-10.2) mg/dL Total Bilirubin (0.0-1.0) mg/dL Direct Bilirubin (0.0-0.5) mg/dL AST (5-37) U/L ALT (0-40) U/L Alkaline Phosphatase (39-117) U/L Total Protein (6.5-8.0) g/dL Albumin (3.5-5.0) g/dL Valproic Acid (50.0-100.0) mcg/mL Discharge Plan Discharge Clinical Impression: Seizures Patient Disposition: Home, Self-Care Instructions: Nonepileptic Seizures (ED) Additional Instructions: Please follow-up with your primary care physician tomorrow. If you have any worsening or new symptoms, please return to the emergency room or call 911 Prescriptions: No Action multivitamin Tablet 1 tab PO DAILY cetirizine [Zyrtec] 10 mg Tablet 10 mg PO DAILY PRN (Reason: post nasal drip) clonazepam 0.5 mg tablet 0.5 mg PO BID@1600,2000 calcium carbonate [Juan-Gest Antacid] 200 mg calcium (500 mg) Tablet,Chewable 1,000 mg PO DAILY docusate sodium [Colace] 100 mg Capsule 100 mg PO BID risperidone 0.5 mg tablet 0.5 mg PO BID diclofenac sodium 1 % Gel 1 g TOPICAL TID PRN (Reason: Pain (Scale Score 4-6)) cholecalciferol (vitamin D3) [Vitamin D3] 50 mcg (2,000 unit) Tablet 100 mcg PO DAILY omega 3-xbj-ljy-fish oil [Fish Oil] 1,000 mg (120 mg-180 mg) Capsule 1 cap PO DAILY acetaminophen [Tylenol] 325 mg Tablet 650 mg PO Q6H PRN (Reason: Pain) loperamide [Imodium A-D] 2 mg Tablet 2 mg PO Q4H PRN (Reason: Loose Stool) Rx Instructions: administer after each loose stool until symptoms controlled; do not exceed 8 mg per 24 hrs clonazepam 1 mg Tablet 1 mg PO DAILY lorazepam [Ativan] 2 mg Tablet 2 mg PO DAILY PRN (Reason: Seizures) Ensure Liquid 1 ea PO DAILY Cepacol Sore Throat (maisha-men) 15-2.6 mg Lozenge 1 richard PO Q2H PRN (Reason: Sore Throat) clonidine HCl 0.1 mg Tablet 0.1 mg PO DAILY PRN (Reason: Agitation) dextromethorphan-guaifenesin 10-200 mg/5 mL Liquid 10 ml PO Q4H PRN (Reason: Congestion) Rx Instructions: or cough divalproex 500 mg Tablet,Delayed Release (Dr/Ec) 1,000 mg PO BID Qty: 120 0RF levetiracetam 500 mg Tablet 1,500 mg PO BID Qty: 180 0RF
[2022-11-02 16:44] VITALS: BP 144/92; BP 167/95; PULSE 90; RESP 17; TEMP 36.8; O2SAT 98; BMI 28.7
[2022-11-02 17:32] LABS: Valproate 93.5 mcg/mL (50.0-100.0)
[2022-11-02 17:36] LABS: Alanine Aminotransferase 21 U/L (0-40); Albumin Level 4.6 g/dL (3.5-5.0); Alkaline Phosphatase 41 U/L (39-117); Anion Gap 14 (12-20); Aspartate Amino Transferase 26 U/L (5-37); Bilirubin Direct 0.1 mg/dL (0.0-0.5); Bilirubin Total 0.4 mg/dL (0.0-1.0); Blood Urea Nitrogen 10 mg/dL (9-16); Carbon Dioxide 24 mmol/L (22-29); Chloride 101 mmol/L (96-108); Estimated Glomerular Filt Rate > 60; Glucose Random 82 mg/dL (60-115); Potassium 4.4 mmol/L (3.3-5.1); Sodium 135 mmol/L (135-145); Total Protein 7.3 g/dL (6.5-8.0)
[2022-11-02 19:44] VITALS: BP 152/96; PULSE 96; RESP 16; TEMP 36.9; O2SAT 98
--- NOTE | 2022-11-02 20:13 | MHC.EDTECH ---
this pct assumed care of pt at 1900 ,vitals sign taken ,seizure pads are in place ,repeat cbc drawn ,pt had a pudding ,zacarias janie and chips for snack .
--- NOTE | 2022-11-02 20:15 | MHC.EDTECH ---
this pct assumed care of pt at 1900 ,pt ate 50 % of dinner ,drank 240 ml fluids .
[2022-11-02 20:19] LABS: Basophils Percent Auto 0.3 % (0-2); Eosinophils Percent Auto 0.1 % (0-4); Hematocrit 40.8 % (42.0-52.0); Hemoglobin 14.2 g/dl (14.0-18.0); Imm Gran Abs Auto 0.05 X10*3/uL (0.00-0.03); Imm Gran Pct Auto 0.6 % (0.0-0.4); Lymphocytes Absolute Auto 1.9 X10*3/uL (1.2-4.9); Mean Corpuscular HGB Conc 34.8 g/dl (31.0-36.0); Mean Corpuscular Hemoglobin 32.5 pg (27.0-33.0); Mean Corpuscular Volume 93.4 fL (80.0-98.0); Mean Platelet Volume 9.8 fL (9.4-12.4); Monocytes Percent Auto 10.9 % (2-11); Neutrophils Absolute Auto 5.9 x10*3/uL (2.0-8.3); Neutrophils Percent Auto 67.1 % (45-73); Platelet Count 189 X10*3/uL (160-400); Red Blood Count 4.37 X10*6/uL (4.60-5.80); Red Cell Distribution Width 13.8 % (11.0-16.0); White Blood Count 8.8 X10*3/uL (4.8-10.8)
--- NOTE | 2022-11-02 20:44 | PC.NURSE ---
RN received call from patient's residential looking for an update. RN confirmed with MD Kc that they are awaiting the pt's lab results and his hematology blood work has hemolized x2. Per MD pt to be cleared for dc home assuming all blood work is WNL he will be cleared to go home. The pt's residential employee states that if the pt's father is still at bedside he can provide transportation back home otherwise the pt will require an ambulance transport home. jail can be reached at [phone]
[2022-11-02 21:49] VITALS: BP 149/101; PULSE 94; RESP 16; TEMP 36.6; O2SAT 98
[2022-11-06 12:09] LABS: Levetiracetam Keppra 31.3 mcg/mL (6.0-46.0)
== END 2022-11-02 23:20 | disposition home or self-care (01) ==
PROVIDERS: Emergency Provider Emergency Medicine
DX: R56.9 Unspecified convulsions (principal)
CPT/HCPCS: 36415; 80048; 80076; 80164; 80177; 83605; 85025; 99283

== ENCOUNTER 2022-11-03 16:10 | Inpatient (IN) | payer MEDICARE, MEDICAID, SELFPAY ==
--- NOTE | ~2022-11-03 | CT_ITS ---
EXAMINATION: CT HEAD WITHOUT CONTRAST CLINICAL INFORMATION: Seizure. COMPARISON: Prior CT examinations, most recently 07/24/2022. TECHNIQUE: Contiguous axial imaging was performed from the skull base to vertex without intravenous administration of contrast. This CT examination was performed using dose optimization techniques as appropriate, variously including the following: *Automated exposure control *Adjustment of mA and/or kV according to patient size (this includes techniques or standardized protocols for targeted exams where dose is matched to indication/reason for exam; i.e. extremities or head) *Use of iterative reconstruction technique DLP: 625 mGy-cm FINDINGS: There is stable bilateral parieto-occipital volume loss, with ex vacuo dilatation of the posterior horns of the bilateral lateral ventricles. This is more pronounced on the left than on the right. The body of the corpus callosum again appears atrophic. No acute mass, hemorrhage, infarction or extra-axial collection is seen. The basilar cisterns are patent. No midline shift is seen. No acute osseous abnormality is seen. There is mild hyperostosis frontalis interna. There are large mucous retention cysts of the maxillary sinuses. The mastoid air cells are clear. CT/CT head/brain wo IV con IMPRESSION: 1. No acute intracranial pathology. 2. There is stable right parietal encephalomalacia, with volume loss and ex vacuo dilatation of the posterior horns of the bilateral lateral ventricles. 3. There is paranasal sinusitis.
[2022-11-03 16:38] VITALS: BP 142/99; BP 149/103; PULSE 81; PULSE 87; RESP 16; TEMP 37.1; O2SAT 100; O2SAT 98; BMI 27.4
--- NOTE | 2022-11-03 16:40 | MHC.EDTECH ---
PT CAME VIA EMS ,PT WAS CHANGE INTO HOSPITAL ATTIRE ,VITALS SIGN TAKEN ,PT WAS HOOKED UP TO [facility] ,RN SASHA IS IN PT ROOM .
--- NOTE | 2022-11-03 17:03 | ECG_ITS ---
Test Reason : seizure Blood Pressure : / mmHG Vent. Rate : 077 BPM Atrial Rate : 077 BPM P-R Int : 138 ms QRS Dur : 084 ms QT Int : 334 ms P-R-T Axes : 041 033 052 degrees QTc Int : 377 ms Normal sinus rhythm Normal ECG When compared with ECG of 06-JUL-2022 21:30, No significant change was found Referred By: Candido Waters Electronically Signed By:LEMUEL RIOJAS MD
--- NOTE | 2022-11-03 17:35 | ED.GENADULT ---
HPI - General Adult General Chief complaint: Seizure Stated complaint: SEIZURE Time Seen by Provider: 11/03/22 16:55 Source: patient, EMS, RN notes reviewed and old records reviewed Mode of arrival: EMS Limitations: no limitations History of Present Illness HPI narrative: 47-year-old male with past medical history significant for cognitive delay secondary to anoxic brain injury at , seizure disorder presents for evaluation of a reported seizure. The patient arrived via ambulance from a [facility]. He was also seen here yesterday for seizure activity The patient takes Keppra and Depakote for anti epileptic medications. He reports he has not missed any doses Patient states that he had 1 seizure today, per EMS it was witnessed by staff at the [facility] and last about 1-1/2 minutes It is described as a tonic-clonic seizure The patient reports that he feels well and has no complaints Related Data Home Medications Medication Instructions Recorded Confirmed calcium carbonate 200 mg calcium 1,000 mg PO DAILY 12/31/21 06/12/22 (500 mg) chewable tablet (Juan-Gest Antacid) cetirizine 10 mg tablet (Zyrtec) 10 mg PO DAILY PRN post nasal drip 12/31/21 06/12/22 cholecalciferol (vitamin D3) 50 100 mcg PO DAILY 12/31/21 06/12/22 mcg (2,000 unit) tablet (Vitamin D3) clonazepam 0.5 mg tablet 0.5 mg PO BID@1600,2000 12/31/21 06/12/22 diclofenac sodium 1 % topical gel 1 g topical TID PRN Pain (Scale 12/31/21 06/12/22 Score 4-6) docusate sodium 100 mg capsule 100 mg PO BID 12/31/21 06/12/22 (Colace) multivitamin 1 tab PO DAILY 12/31/21 06/12/22 omega 1-utp-nzy-fish oil 1,000 mg 1 cap PO DAILY 12/31/21 06/12/22 (120 mg-180 mg) capsule (Fish Oil) risperidone 0.5 mg tablet 0.5 mg PO BID 12/31/21 11/03/22 acetaminophen 325 mg tablet 650 mg PO Q6H PRN Pain 04/08/22 06/12/22 (Tylenol) loperamide 2 mg tablet (Imodium 2 mg PO Q4H PRN Loose Stool 04/08/22 06/12/22 A-D) benzocaine 15 mg-menthol 2.6 mg 1 richard PO Q2H PRN Sore Throat 06/12/22 06/12/22 lozenges (Cepacol Sore Throat (benzocaine-menthol)) clonidine HCl 0.1 mg tablet 0.1 mg PO DAILY PRN Agitation 06/12/22 06/12/22 dextromethorphan-guaifenesin 10 10 ml PO Q4H PRN Congestion 06/12/22 06/12/22 mg-200 mg/5 mL oral liquid food supplemt, lactose-reduced 1 ea PO DAILY 06/12/22 06/12/22 (Ensure oral liquid) lorazepam 2 mg tablet (Ativan) 2 mg PO DAILY PRN Seizures 06/12/22 06/12/22 clonazepam 0.5 mg tablet 1 mg PO DAILY 11/03/22 perampanel 2 mg tablet (Fycompa) 2 mg PO DAILY 11/03/22 Previous Rx's Medication Instructions Recorded levetiracetam 500 mg tablet 1,500 mg PO BID #180 tabs 03/04/22 divalproex 500 mg tablet,delayed 1,000 mg PO BID #120 tabs 06/14/22 release Allergies Allergy/AdvReac Type Severity Reaction Status Date / Time No Known Allergies Allergy Verified 11/02/22 16:47 [No Known Allergies*] Review of Systems Constitutional: Constitutional: Reports as per HPI, Denies chills, Denies fatigue, Denies fever(s) and Denies headache(s) ENT: Denies headache(s) Cardiovascular: Cardiovascular: Denies chest pain and Denies dyspnea Respiratory: Respiratory: Denies cough and Denies dyspnea Gastrointestinal: Gastrointestinal: Denies abdominal pain, Denies constipation and Denies vomiting Genitourinary: Genitourinary: Denies difficulty urinating and Denies dysuria Neurologic: Denies headache(s), Denies focal weakness and Reports seizure-like activity Endocrine: Endocrine: Denies fatigue PMFSH Past Medical History Medical History Anxiety disorder, unspecified Epileptic seizure History of SIADH Hyponatremia Intellectual disability Seizure disorder Surgical History No pertinent past surgical history Family History Family History Other No family history of coronary artery disease Social History Social History Household Members: Other Household Members Other:: group homr Housing: House Housing Other:: [facility]pc Do you presently have visiting nurse or other home services: No Alcohol intake: never Patient Tobacco Use Status: Never used Tobacco e-Cigarette/Vaping Use: Never Used Advance Directives: Yes Advance Directives on File: Yes Advance Directives Date on File: 02/06/22 service: No Current occupational status: disabled Physical Exam ED Vital Signs: Vital Signs - 24 hr 11/03/22 16:38 11/03/22 17:38 11/03/22 17:58 Temperature 98.7 F 97.6 F 97.4 F Pulse Rate 87 86 85 Respiratory Rate 16 16 16 Blood Pressure 142/99 H 133/83 150/99 H Pulse Oximetry 100 98 98 Oxygen Delivery Method Room Air Room Air Room Air BMI result Body Mass Index 27.4 Const General: healthy appearing, comfortable, no acute distress, alert and awake Nutritional Appearance: well nourished Orientation/consciousness: patient oriented x3 HENMT Head: Yes normocephalic and Yes atraumatic Throat: Yes posterior oropharynx normal Eyes Other: Left lateral eye deviation Eyelids: Yes eyelids normal Conjunctivae: conjunctivae normal Pupils: Equal, round and reactive pupils present, Pupils normal by confrontation and Pupil accommodation reflex normal Neck Neck: Yes full ROM Resp Effort & Inspection: normal respiratory effort, able to speak in complete sentences, no audible wheezes and not labored Auscultation: clear to auscultation bilaterally Cardio Rate: regular rate Rhythm: regular rhythm GI Inspection: No distended Palpation (GI): Soft to palpation, not firm, nontender, no guarding and not rigid Auscultation: normoactive bowel sounds Skin General skin exam: no rashes or lesions noted and elasticity normal Neuro General: patient oriented x3 Cranial nerves: Yes CN's II-XII intact bilaterally, Yes Equal, round and reactive pupils present and Yes Bilaterally intact EOM present Course Reevaluation(s) Reevaluation #1: ED staff was in the room, the patient reportedly did not feel well and then had a tonic-clonic seizure witnessed by nursing staff. This lasted approximately a minute in 12 seconds per nursing staff. The patient was given Ativan 2 mg IV. Unfortunate was not able to get into the room exactly when the seizure happened but assumes as available at evaluate the patient and he did appear to be postictal as his responses were more delayed then on my initial evaluation. Given that we are still waiting the patient's Keppra level from yesterday, we will administer Keppra 1.5 g IV and plan for admission Time: 17:58 Reevaluation #2: Dr Anderson, hospitalist requested CT scan of the brain prior to admission which was ordered Time: 18:53 Medications Administered Discontinued Medications Generic Name Dose Route Start Last Admin Trade Name Freq PRN Reason Stop Dose Admin Levetiracetam 1,500 mg in 100 mls @ 400 mls/hr 11/03/22 18:00 11/03/22 18:40 Keppra IV 11/03/22 18:14 Infused ONCE ONE Infusion Medical Decision Making Medical Decision Making [facility] Narrative: 47-year-old male presenting for evaluation of his seizure from a [facility]. I read the patient's no from yesterday. He had negative workup at that time felt the patient may have had pseudoseizures versus absence seizures. Will recheck labs including electrolytes, lactic acid and prolactin. The patient is currently at his baseline. There was no reported trauma after his seizure. I do not see any indication for CT imaging of the brain at this time. The patient's Depakote level is still pending from yesterday Lab Data 11/03/22 17:46 11/03/22 17:46 Labs: Lab Results 11/03/22 11/03/22 11/03/22 Range/Units 17:46 17:46 17:46 WBC 7.1 (4.8-10.8) X10*3/uL RBC 4.51 L (4.60-5.80) X10*6/uL Hgb 14.6 (14.0-18.0) g/dl Hct 42.3 (42.0-52.0) % MCV 93.8 (80.0-98.0) fL MCH 32.4 (27.0-33.0) pg MCHC 34.5 (31.0-36.0) g/dl RDW 13.8 (11.0-16.0) % Plt Count 197 (160-400) X10*3/uL MPV 9.9 (9.4-12.4) fL Immature Gran % (Auto) 1.1 H (0.0-0.4) % Neut % (Auto) 66.0 (45-73) % Lymph % (Auto) 19.9 L (20-40) % [place] % (Auto) 12.6 H (2-11) % Eos % (Auto) 0.1 (0-4) % Baso % (Auto) 0.3 (0-2) % Lymph # (Auto) 1.4 (1.2-4.9) X10*3/uL [place] # (Auto) 0.9 (0.1-1.2) X10*3/uL Eos # (Auto) 0.0 (0.0-0.4) X10*3/uL Baso # (Auto) 0.0 (0.0-0.2) X10*3/uL Abs Immat Gran (auto) 0.08 H (0.00-0.03) X10*3/uL Absolute Neuts (auto) 4.7 (2.0-8.3) x10*3/uL Absolute Nucleated RBC 0.000 (0.0-0.012) X10*3/uL Nucleated RBC % (auto) 0.0 (0.0-0.2) /100WBC Sodium 136 (135-145) mmol/L Potassium 4.6 (3.3-5.1) mmol/L Chloride 99 (96-108) mmol/L Carbon Dioxide 26 (22-29) mmol/L Anion Gap 16 (12-20) BUN 9 (9-16) mg/dL Creatinine 0.72 (0.5-1.4) mg/dL Estim Creat Clear Calc 118.2 Estimated GFR > 60 Random Glucose 94 (60-115) mg/dL Lactic Acid 1.8 (0.5-2.0) mmol/L Calcium 9.8 (8.4-10.2) mg/dL Magnesium 1.8 (1.6-2.6) mg/dL Total Bilirubin 0.4 (0.0-1.0) mg/dL AST 37 (5-37) U/L ALT 25 (0-40) U/L Alkaline Phosphatase 37 L (39-117) U/L Total Protein 7.1 (6.5-8.0) g/dL Albumin 4.5 (3.5-5.0) g/dL Valproic Acid (50.0-100.0) mcg/mL 11/03/22 Range/Units 17:46 WBC (4.8-10.8) X10*3/uL RBC (4.60-5.80) X10*6/uL Hgb (14.0-18.0) g/dl Hct (42.0-52.0) % MCV (80.0-98.0) fL MCH (27.0-33.0) pg MCHC (31.0-36.0) g/dl RDW (11.0-16.0) % Plt Count (160-400) X10*3/uL MPV (9.4-12.4) fL Immature Gran % (Auto) (0.0-0.4) % Neut % (Auto) (45-73) % Lymph % (Auto) (20-40) % [place] % (Auto) (2-11) % Eos % (Auto) (0-4) % Baso % (Auto) (0-2) % Lymph # (Auto) (1.2-4.9) X10*3/uL [place] # (Auto) (0.1-1.2) X10*3/uL Eos # (Auto) (0.0-0.4) X10*3/uL Baso # (Auto) (0.0-0.2) X10*3/uL Abs Immat Gran (auto) (0.00-0.03) X10*3/uL Absolute Neuts (auto) (2.0-8.3) x10*3/uL Absolute Nucleated RBC (0.0-0.012) X10*3/uL Nucleated RBC % (auto) (0.0-0.2) /100WBC Sodium (135-145) mmol/L Potassium (3.3-5.1) mmol/L Chloride (96-108) mmol/L Carbon Dioxide (22-29) mmol/L Anion Gap (12-20) BUN (9-16) mg/dL Creatinine (0.5-1.4) mg/dL Estim Creat Clear Calc Estimated GFR Random Glucose (60-115) mg/dL Lactic Acid (0.5-2.0) mmol/L Calcium (8.4-10.2) mg/dL Magnesium (1.6-2.6) mg/dL Total Bilirubin (0.0-1.0) mg/dL AST (5-37) U/L ALT (0-40) U/L Alkaline Phosphatase (39-117) U/L Total Protein (6.5-8.0) g/dL Albumin (3.5-5.0) g/dL Valproic Acid 72.1 (50.0-100.0) mcg/mL Discharge Plan Discharge Clinical Impression: Seizure Patient Disposition: Admitted As Inpatient
[2022-11-03 17:38] VITALS: BP 133/83; PULSE 86; RESP 16; TEMP 36.4; O2SAT 98
[2022-11-03 17:52] LABS: MANUAL DIFF FLAG NO
--- NOTE | 2022-11-03 17:57 | MHC.EDTECH ---
PT BLOOD DRAWN AND SENT TO LAB ,EKG DONE AND WAS READ BY PROVIDER .
[2022-11-03 17:58] VITALS: BP 150/99; PULSE 85; RESP 16; TEMP 36.3; O2SAT 98
[2022-11-03 18:05] LABS: Lactic Acid 1.8 mmol/L (0.5-2.0)
[2022-11-03 18:09] LABS: Alanine Aminotransferase 25 U/L (0-40); Albumin Level 4.5 g/dL (3.5-5.0); Alkaline Phosphatase 37 U/L (39-117); Anion Gap 16 (12-20); Aspartate Amino Transferase 37 U/L (5-37); Bilirubin Total 0.4 mg/dL (0.0-1.0); Blood Urea Nitrogen 9 mg/dL (9-16); Calcium 9.8 mg/dL (8.4-10.2); Carbon Dioxide 26 mmol/L (22-29); Chloride 99 mmol/L (96-108); Creatinine Clr Calc Pharmacy 118.2; Estimated Glomerular Filt Rate > 60; Glucose Random 94 mg/dL (60-115); Magnesium 1.8 mg/dL (1.6-2.6); Potassium 4.6 mmol/L (3.3-5.1); Sodium 136 mmol/L (135-145); Total Protein 7.1 g/dL (6.5-8.0); Valproate 72.1 mcg/mL (50.0-100.0)
[2022-11-03 18:11] LABS: Basophils Percent Auto 0.3 % (0-2); Eosinophils Percent Auto 0.1 % (0-4); Hematocrit 42.3 % (42.0-52.0); Hemoglobin 14.6 g/dl (14.0-18.0); Imm Gran Abs Auto 0.08 X10*3/uL (0.00-0.03); Imm Gran Pct Auto 1.1 % (0.0-0.4); Lymphocytes Absolute Auto 1.4 X10*3/uL (1.2-4.9); Lymphocytes Percent Auto 19.9 % (20-40); Mean Corpuscular HGB Conc 34.5 g/dl (31.0-36.0); Mean Corpuscular Hemoglobin 32.4 pg (27.0-33.0); Mean Corpuscular Volume 93.8 fL (80.0-98.0); Mean Platelet Volume 9.9 fL (9.4-12.4); Monocytes Absolute Auto 0.9 X10*3/uL (0.1-1.2); Monocytes Percent Auto 12.6 % (2-11); Neutrophils Absolute Auto 4.7 x10*3/uL (2.0-8.3); Platelet Count 197 X10*3/uL (160-400); Red Blood Count 4.51 X10*6/uL (4.60-5.80); Red Cell Distribution Width 13.8 % (11.0-16.0); White Blood Count 7.1 X10*3/uL (4.8-10.8)
[2022-11-03] MEDS: levETIRAcetam in NaCl (iso-os) 1,500 MG/100 ML PIGGYBACK 400 MG IV (18:21)
--- NOTE | 2022-11-03 18:50 | PC.NURSE ---
Late Entry: DIPTI Otero ws in with patient when pt stated he was seizing. This RN entered room when pts heart rate went up to about the 170s sinus tachycardia and the patient began seizing. Seizure lasted 1 minute and 12 seconds. While patient was seizing 20g IV placed in LAC and 2mg IV Ativan was given per verbal order by MD Kc. Pt stopped seizing and is now back at baseline. Respirations even and unlabored, skin pwd, alert to baseline. IV Keppra administered per MAR
[2022-11-03 19:22] LABS: COVID-19 Test Negative (Negative); IDNOW Serial# BCCEAD1C
--- NOTE | 2022-11-03 19:40 | PHA.MEDREC ---
Pharmacy Consult ? Medication Reconciliation Pharmacy has completed the medication reconciliation. Patient came from [facility] with med list. prescription mediations matched claim history. Victoria Garcia, BeckieD
--- NOTE | 2022-11-03 20:44 | PC.NURSE ---
Pt back from imaging.
[2022-11-03] MEDS: LORazepam 2 MG/ML VIAL IVPUSH (21:37)
--- NOTE | 2022-11-03 21:37 | PC.NURSE ---
While EDTA at bedside pt with witnessed seizure activity. Tachycardic in 130-140's. Dr. Kc made aware. 2mg Ativan administered IVP.
[2022-11-03 21:41] VITALS: BP 172/116; PULSE 102; RESP 20; O2SAT 98
--- NOTE | 2022-11-03 21:44 | PC.NURSE ---
Pt awake and talking. Remains hypertensive however HR back down to 80's. Maintaining airway.
[2022-11-03 21:46] VITALS: BP 153/101; PULSE 89; RESP 20; O2SAT 97
--- NOTE | 2022-11-03 22:59 | P.HPHOSP_ITS ---
History of Present Illness Date of Service: 11/03/22 Chief Complaint: Breakthrough seizure 47-year-old male with past medical history of epileptic seizures, intellectual disability, anxiety disorder, comes in to the hospital with reported episodes of seizure. Patient is awake, alert to self and place, able to answer questions with yes no. It appears that patient had 30 episodes of seizure disorder the day prior, he was evaluated in the ED and sent back to his prison, returns today with another reported episode of seizure, developed a 2 witnessed seizures while in the ED. according to staff at detention patient has been compliant with his antiepileptics, with no missed doses. Of note patient was seen in the hospital for the same in the past and at that time attributed to possible missed medications. Patient received 1500 mg of IV Keppra in the ED as well as 2 mg of Ativan resolution of symptoms and no repeat seizures. Keppra level pending, , Depakote level pending vitals on arrival otherwise stable, Labs are significant for WBC count of 7.1, otherwise unremarkable head CT negative Review of Systems Review of Systems: Yes all other systems are reviewed and are negative [facility] Medical History Anxiety disorder, unspecified Epileptic seizure History of SIADH Hyponatremia Intellectual disability Seizure disorder Family History Other No family history of coronary artery disease Surgical History No pertinent past surgical history Social History Household Members: Other Household Members Other[facility] Housing: House Housing Other:: prison Do you presently have visiting nurse or other home services: No Alcohol intake: never Patient Tobacco Use Status: Never used Tobacco e-Cigarette/Vaping Use: Never Used Advance Directives: Yes Advance Directives on File: Yes Advance Directives Date on File: 02/06/22 Nutrition Risks: No Nutritional Risk service: No Current occupational status: disabled Meds Allergies Allergy/AdvReac Type Severity Reaction Status Date / Time No Known Allergies Allergy Verified 11/02/22 16:47 [No Known Allergies*] Active Medications: Current Medications Acetaminophen (Acetaminophen 325 Mg Tablet) 650 mg PO Q6H PRN PRN Reason: Pain, Mild (Pain Scale 1-3) Enoxaparin Sodium (Enoxaparin Sodium 40 Mg/0.4 Ml Syringe) 40 mg SUBCUT Q24H [facility] Ondansetron HCl (Ondansetron Hcl 4 Mg/2 Ml Vial) 4 mg IVPUSH Q8H PRN PRN Reason: Nausea and Vomiting Pharmacy Consult (Consult Rx Perform Med Rec) 1 each MISCELLANE ONCE PRN PRN Reason: Consult order Sodium Chloride (0.9 % Sodium Chloride Flush 3 Ml Syringe) 3 ml IVFLUSH QSHIFT [facility] Home Medications Medication Instructions Recorded Confirmed Last Taken Type cetirizine 10 mg tablet (Zyrtec) 10 mg PO DAILY PRN post nasal drip 12/31/21 11/03/22 06/12/22 History cholecalciferol (vitamin D3) 50 100 mcg PO DAILY 12/31/21 11/03/22 06/12/22 History mcg (2,000 unit) tablet (Vitamin D3) clonazepam 0.5 mg tablet 0.5 mg PO BID@1600,2000 12/31/21 11/03/22 06/12/22 History diclofenac sodium 1 % topical gel 1 g topical TID PRN Pain (Scale 12/31/21 11/03/22 06/12/22 History Score 4-6) docusate sodium 100 mg capsule 100 mg PO BID 12/31/21 11/03/22 06/12/22 History (Colace) multivitamin 1 tab PO DAILY 12/31/21 11/03/22 06/12/22 History omega 7-ksp-qlm-fish oil 1,000 mg 1 cap PO DAILY 12/31/21 11/03/22 06/12/22 History (120 mg-180 mg) capsule (Fish Oil) risperidone 0.5 mg tablet 0.5 mg PO BID 12/31/21 11/03/22 06/12/22 History acetaminophen 325 mg tablet 650 mg PO Q6H PRN Pain 04/08/22 11/03/22 Unknown History (Tylenol) loperamide 2 mg tablet (Imodium 2 mg PO Q4H PRN Loose Stool 04/08/22 11/03/22 Unknown History A-D) benzocaine 15 mg-menthol 2.6 mg 1 richard PO Q2H PRN Sore Throat 06/12/22 11/03/22 Unknown History lozenges (Cepacol Sore Throat (benzocaine-menthol)) clonidine HCl 0.1 mg tablet 0.1 mg PO DAILY PRN Agitation 06/12/22 11/03/22 Unknown History dextromethorphan-guaifenesin 10 10 ml PO Q4H PRN Congestion 06/12/22 11/03/22 Unknown History mg-200 mg/5 mL oral liquid lorazepam 2 mg tablet (Ativan) 2 mg PO USEASDIRECTD PRN Seizures 06/12/22 11/03/22 Unknown History clonazepam 0.5 mg tablet 1 mg PO DAILY 11/03/22 11/03/22 Unknown History perampanel 2 mg tablet (Fycompa) 2 mg PO BEDTIME 11/03/22 11/03/22 Unknown History Physical Exam Vital Signs and Narrative: Vital Signs: Last Vital Signs Temp 97.4 F 11/03/22 17:58 Pulse 89 11/03/22 21:46 Resp 20 11/03/22 21:46 BP 153/101 H 11/03/22 21:46 Pulse Ox 97 11/03/22 21:46 O2 Del Method Room Air 11/03/22 21:46 BMI result Body Mass Index 27.4 Const: Other: alert oriented x2 General: cooperative and no acute distress Eyes: General: appearance normal, both eyes and all related structures Resp: Effort & Inspection: normal respiratory effort Auscultation: clear to auscultation bilaterally Cardio: Rate: regular rate Rhythm: regular rhythm GI: Palpation (GI): Soft to palpation Auscultation: normal bowel sounds Skin: General skin exam: no rashes or lesions noted Extrem: General: Yes normal to inspection and Yes no pedal edema Results Labs 11/03/22 17:46 11/03/22 17:46 Labs: Laboratory Results - last 24 hr 11/03/22 11/03/22 11/03/22 17:46 17:46 17:46 MCV 93.8 MCH 32.4 MCHC 34.5 RDW 13.8 Plt Count 197 MPV 9.9 Immature Gran % (Auto) 1.1 H Neut % (Auto) 66.0 Lymph % (Auto) 19.9 L [place] % (Auto) 12.6 H Eos % (Auto) 0.1 Baso % (Auto) 0.3 Lymph # (Auto) 1.4 [place] # (Auto) 0.9 Eos # (Auto) 0.0 Baso # (Auto) 0.0 Abs Immat Gran (auto) 0.08 H Absolute Neuts (auto) 4.7 Absolute Nucleated RBC 0.000 Nucleated RBC % (auto) 0.0 Anion Gap 16 Estim Creat Clear Calc 118.2 Estimated GFR > 60 Random Glucose 94 Lactic Acid 1.8 Calcium 9.8 Magnesium 1.8 Total Bilirubin 0.4 AST 37 ALT 25 Alkaline Phosphatase 37 L Total Protein 7.1 Albumin 4.5 Valproic Acid COVID-19 (JANICE) COVID-19 Clin Com 11/03/22 11/03/22 17:46 19:00 MCV MCH MCHC RDW Plt Count MPV Immature Gran % (Auto) Neut % (Auto) Lymph % (Auto) [place] % (Auto) Eos % (Auto) Baso % (Auto) Lymph # (Auto) [place] # (Auto) Eos # (Auto) Baso # (Auto) Abs Immat Gran (auto) Absolute Neuts (auto) Absolute Nucleated RBC Nucleated RBC % (auto) Anion Gap Estim Creat Clear Calc Estimated GFR Random Glucose Lactic Acid Calcium Magnesium Total Bilirubin AST ALT Alkaline Phosphatase Total Protein Albumin Valproic Acid 72.1 COVID-19 (JANICE) Negative COVID-19 Clin Com See Note Imaging Radiologist's Impressions: Impressions Head CT 11/03/22 20:44 IMPRESSION: 1. No acute intracranial pathology. 2. There is stable right parietal encephalomalacia, with volume loss and ex vacuo dilatation of the posterior horns of the bilateral lateral ventricles. 3. There is paranasal sinusitis. Assessment and Plan (1) Breakthrough seizure: Status: Resolved Plan 47-year-old male with past medical history of seizure disorder, presents to the hospital with what appears to be breakthrough seizures # breakthrough seizures - unclear etiology, appears to be compliant with his medications - pending Depakote level, otherwise Keppra level therapeutic - will consult neurology for further recommendation - continue home dose of Keppra and Depakote # anxiety - continue clonazepam DVT prophylaxis: Lovenox Time Spent With Patient Time: Total time managing care of this patient today ____ minutes. Quality Stroke Does the patient have a stroke diagnosis?: No VTE Prior VTE?: No VTE Risk Level:: Medical - moderate - high VTE Device Contraindication: Treatment Not Indicated VTE Drug Contraindication: N/A - Med Ordered
[2022-11-04] VITALS (10 sets, daily range): BP systolic 119–145; BP diastolic 81–109; PULSE 76–87; RESP 14–20; TEMP 36.1–37.2; O2SAT 96–99
[2022-11-04] MEDS: Enoxaparin Sodium 40 MG/0.4 ML SYRINGE SUBCUT ×2 (00:02→21:58)
[2022-11-04] MEDS: levETIRAcetam 500 MG TABLET 1500 MG PO ×3 (00:03→20:29)
[2022-11-04] MEDS: risperiDONE 0.5 MG TABLET PO ×3 (00:03→20:29)
[2022-11-04] MEDS: Divalproex Sodium 500 MG TABLET.DR 1000 MG PO ×3 (00:03→20:29)
[2022-11-04] MEDS: 0.9 % Sodium Chloride Flush 3 ML SYRINGE IVFLUSH ×3 (00:03→16:03)
[2022-11-04] MEDS: clonazePAM 0.5 MG TABLET PO ×3 (00:03→20:28)
[2022-11-04] MEDS: Acetaminophen 325 MG TABLET 650 MG PO (02:46)
[2022-11-04 06:34] LABS: MANUAL DIFF FLAG NO
[2022-11-04 06:35] LABS: Basophils Percent Auto 0.4 % (0-2); Eosinophils Percent Auto 0.3 % (0-4); Hematocrit 40.3 % (42.0-52.0); Hemoglobin 14.4 g/dl (14.0-18.0); Imm Gran Abs Auto 0.06 X10*3/uL (0.00-0.03); Imm Gran Pct Auto 0.8 % (0.0-0.4); Lymphocytes Absolute Auto 2.7 X10*3/uL (1.2-4.9); Lymphocytes Percent Auto 33.9 % (20-40); Mean Corpuscular HGB Conc 35.7 g/dl (31.0-36.0); Mean Corpuscular Hemoglobin 33.3 pg (27.0-33.0); Mean Corpuscular Volume 93.1 fL (80.0-98.0); Mean Platelet Volume 9.8 fL (9.4-12.4); Monocytes Absolute Auto 0.9 X10*3/uL (0.1-1.2); Monocytes Percent Auto 11.4 % (2-11); Neutrophils Absolute Auto 4.2 x10*3/uL (2.0-8.3); Neutrophils Percent Auto 53.2 % (45-73); Platelet Count 186 X10*3/uL (160-400); Red Blood Count 4.33 X10*6/uL (4.60-5.80); Red Cell Distribution Width 13.6 % (11.0-16.0); White Blood Count 7.9 X10*3/uL (4.8-10.8)
[2022-11-04 06:53] LABS: Anion Gap 12 (12-20); Blood Urea Nitrogen 7 mg/dL (9-16); Calcium 9.2 mg/dL (8.4-10.2); Carbon Dioxide 27 mmol/L (22-29); Chloride 99 mmol/L (96-108); Estimated Glomerular Filt Rate > 60; Glucose Random 96 mg/dL (60-115); Potassium 3.5 mmol/L (3.3-5.1); Sodium 134 mmol/L (135-145)
--- NOTE | 2022-11-04 07:38 | PC.NURSE ---
yumiko rodriguez (rig site engineer of [facility], ) called and was updated on pt status. pt's father yrn bundy ([phone]) called and was updated on pt status.
--- NOTE | 2022-11-04 07:40 | PC.NURSE ---
pt spoke to his father on [facility] cell phone.
--- NOTE | 2022-11-04 08:33 | PC.NURSE ---
pt seen by dr. queen, aware of plan of care.
[2022-11-04] MEDS: Docusate Sodium 100 MG CAPSULE PO ×2 (08:43→20:28)
[2022-11-04] MEDS: clonazePAM 1 MG TABLET PO (08:43)
[2022-11-04] MEDS: Multivitamin TABLET 1 TAB PO (08:43)
[2022-11-04] MEDS: Cholecalciferol (Vitamin D3) 25 MCG TABLET 100 MCG PO (08:44)
--- NOTE | 2022-11-04 09:25 | PC.NURSE ---
marimar mendosa (plaster pattern caster of [facility], ) called [facility] and was updated on pt status.
--- NOTE | 2022-11-04 09:25 | MHC.EDTECH ---
this pct changed all linen,changed ED stretcher for in patient hospital bed. pt was washed up(complete bed bath)anita was changed
--- NOTE | 2022-11-04 10:13 | PC.NURSE ---
pt's [facility] staff is at bedside. pt is calm/co-op and watching tv.
--- NOTE | 2022-11-04 10:23 | MHC.EDTECH ---
Vitals per Nurse
--- NOTE | 2022-11-04 10:29 | P.PNIM_ITS ---
Subjective Subjective Date of Service: 11/04/22 Interval History: f/u breakthrough interval history: No seizure overnight or this morning. Physical Exam Vital Signs: Vital Signs: Last Vital Signs Temp 98.4 F 11/04/22 10:00 Pulse 76 11/04/22 10:00 Resp 14 11/04/22 10:00 BP 135/109 H 11/04/22 10:00 Pulse Ox 99 11/04/22 10:00 O2 Del Method Room Air 11/04/22 10:00 BMI result Body Mass Index 27.4 Const: Other: General: AO X 3, no acute distress Resp: CTA bilateral CVS: S1,S2,RRR GI: +BS, NT, no distention Skin: No rash Neuro: motor grossly intact Psych: appropriate affect Objective Data Active Medications Acetaminophen (Acetaminophen 325 Mg Tablet) 650 mg PO Q6H PRN PRN Reason: Pain, Mild (Pain Scale 1-3) Last Admin: 11/04/22 02:46 Dose: 650 mg Documented By: LISA Benzocaine (Throat Lozenge, Medicated Lozenge) 1 lozenge MUCOUS MEM Q2H PRN PRN Reason: Sore Throat Clonazepam (Clonazepam 0.5 Mg Tablet) 0.5 mg PO BID@1600,2000 [facility] Last Admin: 11/04/22 00:03 Dose: 0.5 mg Documented By: LISA Clonazepam (Clonazepam 1 Mg Tablet) 1 mg PO DAILY [facility] Last Admin: 11/04/22 08:43 Dose: 1 mg Documented By: TRINIDAD Clonidine HCl (Clonidine Hcl 0.1 Mg Tablet) 0.1 mg PO DAILY PRN; Protocol PRN Reason: Agitation Divalproex Sodium (Divalproex Sodium 500 Mg Tablet.) 1,000 mg PO BID [facility] Last Admin: 11/04/22 08:43 Dose: 1,000 mg Documented By: TRINIDAD Docusate Sodium (Docusate Sodium 100 Mg Capsule) 100 mg PO BID [facility] Last Admin: 11/04/22 08:43 Dose: 100 mg Documented By: TRINIDAD Enoxaparin Sodium (Enoxaparin Sodium 40 Mg/0.4 Ml Syringe) 40 mg SUBCUT Q24H [facility] Last Admin: 11/04/22 00:02 Dose: 40 mg Documented By: LISA Guaifenesin (Guaifenesin 200 Mg/10 Ml 10 Ml Liquid) 10 ml PO Q4H PRN PRN Reason: Congestion Levetiracetam (Levetiracetam 500 Mg Tablet) 1,500 mg PO BID [facility] Last Admin: 11/04/22 08:43 Dose: 1,500 mg Documented By: TRINIDAD Loperamide HCl (Loperamide Hcl 2 Mg Capsule) 2 mg PO Q4H PRN PRN Reason: Loose Stool Loratadine (Loratadine 10 Mg Tablet) 10 mg PO DAILY PRN PRN Reason: post nasal drip Lorazepam (Lorazepam 1 Mg Tablet) 2 mg PO TID PRN PRN Reason: Seizures Multivitamins/Vitamin C (Multivitamin Tablet) 1 tab PO DAILY [facility] Last Admin: 11/04/22 08:43 Dose: 1 tab Documented By: TRINIDAD Non-Formulary Medication (Perampanel [Fycompa]) 2 mg PO BEDTIME [facility] Last Admin: 11/04/22 00:04 Dose: Not Given Documented By: LISA Non-Admin Reason: Med Not Available Ondansetron HCl (Ondansetron Hcl 4 Mg/2 Ml Vial) 4 mg IVPUSH Q8H PRN PRN Reason: Nausea and Vomiting Pharmacy Consult (Consult Rx Perform Med Rec) 1 each MISCELLANE ONCE PRN PRN Reason: Consult order Risperidone (Risperidone 0.5 Mg Tablet) 0.5 mg PO BID [facility] Last Admin: 11/04/22 08:43 Dose: 0.5 mg Documented By: TRINIDAD Sodium Chloride (0.9 % Sodium Chloride Flush 3 Ml Syringe) 3 ml IVFLUSH QSHIFT [facility] Last Admin: 11/04/22 08:44 Dose: 3 ml Documented By: TRINIDAD Vitamin D (Cholecalciferol (Vitamin D3) 25 Mcg Tablet) 100 mcg PO DAILY [facility] Last Admin: 11/04/22 08:44 Dose: 100 mcg Documented By: TRINIDAD Labs 11/04/22 06:29 11/04/22 06:29 Labs: Laboratory Results - last 24 hr 11/03/22 11/03/22 11/03/22 17:46 17:46 17:46 MCV 93.8 MCH 32.4 MCHC 34.5 RDW 13.8 Plt Count 197 MPV 9.9 Immature Gran % (Auto) 1.1 H Neut % (Auto) 66.0 Lymph % (Auto) 19.9 L [place] % (Auto) 12.6 H Eos % (Auto) 0.1 Baso % (Auto) 0.3 Lymph # (Auto) 1.4 [place] # (Auto) 0.9 Eos # (Auto) 0.0 Baso # (Auto) 0.0 Abs Immat Gran (auto) 0.08 H Absolute Neuts (auto) 4.7 Absolute Nucleated RBC 0.000 Nucleated RBC % (auto) 0.0 Anion Gap 16 Estim Creat Clear Calc 118.2 Estimated GFR > 60 Random Glucose 94 Lactic Acid 1.8 Calcium 9.8 Magnesium 1.8 Total Bilirubin 0.4 AST 37 ALT 25 Alkaline Phosphatase 37 L Total Protein 7.1 Albumin 4.5 Valproic Acid COVID-19 (JANICE) COVID-19 [facility] 11/03/22 11/03/22 11/04/22 17:46 19:00 06:29 MCV 93.1 MCH 33.3 H MCHC 35.7 RDW 13.6 Plt Count 186 MPV 9.8 Immature Gran % (Auto) 0.8 H Neut % (Auto) 53.2 Lymph % (Auto) 33.9 [place] % (Auto) 11.4 H Eos % (Auto) 0.3 Baso % (Auto) 0.4 Lymph # (Auto) 2.7 [place] # (Auto) 0.9 Eos # (Auto) 0.0 Baso # (Auto) 0.0 Abs Immat Gran (auto) 0.06 H Absolute Neuts (auto) 4.2 Absolute Nucleated RBC 0.000 Nucleated RBC % (auto) 0.0 Anion Gap Estim Creat Clear Calc Estimated GFR Random Glucose Lactic Acid Calcium Magnesium Total Bilirubin AST ALT Alkaline Phosphatase Total Protein Albumin Valproic Acid 72.1 COVID-19 (JANICE) Negative COVID-19 Clin Com See Note 11/04/22 06:29 MCV MCH MCHC RDW Plt Count MPV Immature Gran % (Auto) Neut % (Auto) Lymph % (Auto) [place] % (Auto) Eos % (Auto) Baso % (Auto) Lymph # (Auto) [place] # (Auto) Eos # (Auto) Baso # (Auto) Abs Immat Gran (auto) Absolute Neuts (auto) Absolute Nucleated RBC Nucleated RBC % (auto) Anion Gap 12 Estim Creat Clear Calc 115.0 Estimated GFR > 60 Random Glucose 96 Lactic Acid Calcium 9.2 D Magnesium Total Bilirubin AST ALT Alkaline Phosphatase Total Protein Albumin Valproic Acid COVID-19 (JANICE) COVID-19 Clin Com Assessment and Plan (1) Seizure: Status: Acute (2) Breakthrough seizure: Status: Resolved Plan 47-year-old male with past medical? history of seizure disorder, presents to the hospital with? what appears to be breakthrough seizures #? breakthrough? seizures on Depakote, level pending. Loaded with IV Keppra, EEG and Neuro consult pending. Dispo after neuro eval #? anxiety -? continue clonazepam Levenox for dvt Time Spent With Patient Time: Total time managing care of this patient today ____ minutes. Quality Stroke Does the patient have a stroke diagnosis?: No VTE Prior VTE?: No VTE Risk Level:: Medical - moderate - high VTE Device Contraindication: Treatment Not Indicated VTE Drug Contraindication: N/A - Med Ordered
--- NOTE | 2022-11-04 11:05 | P.CNNE_ITS ---
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 His seizures were never completely controlled. Apparently he was having many more seizures recently without any other obvious medical illness and was in emergency room. He said that he had not missed any dose. Review of Systems Review of Systems: No recent cold or flu-like illness PMFSH Past Medical History Medical History Anxiety disorder, unspecified Epileptic seizure History of SIADH Hyponatremia Intellectual disability Seizure disorder Family History Family History Other No family history of coronary artery disease Surgical History Surgical History No pertinent past surgical history Social History Social History Household Members: Other Household Members Other:: group homr Housing: House Housing Other:: retirement Do you presently have visiting nurse or other home services: No Alcohol intake: never Patient Tobacco Use Status: Never used Tobacco e-Cigarette/Vaping Use: Never Used Advance Directives: Yes Advance Directives on File: Yes Advance Directives Date on File: 02/06/22 Nutrition Risks: No Nutritional Risk service: No Current occupational status: disabled Meds Allergies Allergy/AdvReac Type Severity Reaction Status Date / Time No Known Allergies Allergy Verified 11/02/22 16:47 [No Known Allergies*] Active Medications: Current Medications Acetaminophen (Acetaminophen 325 Mg Tablet) 650 mg PO Q6H PRN PRN Reason: Pain, Mild (Pain Scale 1-3) Last Admin: 11/04/22 02:46 Dose: 650 mg Benzocaine (Throat Lozenge, Medicated Lozenge) 1 lozenge MUCOUS MEM Q2H PRN PRN Reason: Sore Throat Clonazepam (Clonazepam 0.5 Mg Tablet) 0.5 mg PO BID@1600,2000 [facility] Last Admin: 11/04/22 00:03 Dose: 0.5 mg Clonazepam (Clonazepam 1 Mg Tablet) 1 mg PO DAILY [facility] Last Admin: 11/04/22 08:43 Dose: 1 mg Clonidine HCl (Clonidine Hcl 0.1 Mg Tablet) 0.1 mg PO DAILY PRN; Protocol PRN Reason: Agitation Divalproex Sodium (Divalproex Sodium 500 Mg Tablet.Dr) 1,000 mg PO BID [facility] Last Admin: 11/04/22 08:43 Dose: 1,000 mg Docusate Sodium (Docusate Sodium 100 Mg Capsule) 100 mg PO BID [facility] Last Admin: 11/04/22 08:43 Dose: 100 mg Enoxaparin Sodium (Enoxaparin Sodium 40 Mg/0.4 Ml Syringe) 40 mg SUBCUT Q24H [facility] Last Admin: 11/04/22 00:02 Dose: 40 mg Guaifenesin (Guaifenesin 200 Mg/10 Ml 10 Ml Liquid) 10 ml PO Q4H PRN PRN Reason: Congestion Levetiracetam (Levetiracetam 500 Mg Tablet) 1,500 mg PO BID [facility] Last Admin: 11/04/22 08:43 Dose: 1,500 mg Loperamide HCl (Loperamide Hcl 2 Mg Capsule) 2 mg PO Q4H PRN PRN Reason: Loose Stool Loratadine (Loratadine 10 Mg Tablet) 10 mg PO DAILY PRN PRN Reason: post nasal drip Lorazepam (Lorazepam 1 Mg Tablet) 2 mg PO TID PRN PRN Reason: Seizures Multivitamins/Vitamin C (Multivitamin Tablet) 1 tab PO DAILY [facility] Last Admin: 11/04/22 08:43 Dose: 1 tab Non-Formulary Medication (Perampanel [Fycompa]) 2 mg PO BEDTIME [facility] Last Admin: 11/04/22 00:04 Dose: Not Given Ondansetron HCl (Ondansetron Hcl 4 Mg/2 Ml Vial) 4 mg IVPUSH Q8H PRN PRN Reason: Nausea and Vomiting Pharmacy Consult (Consult Rx Perform Med Rec) 1 each MISCELLANE ONCE PRN PRN Reason: Consult order Risperidone (Risperidone 0.5 Mg Tablet) 0.5 mg PO BID [facility] Last Admin: 11/04/22 08:43 Dose: 0.5 mg Sodium Chloride (0.9 % Sodium Chloride Flush 3 Ml Syringe) 3 ml IVFLUSH QSHIFT [facility] Last Admin: 11/04/22 08:44 Dose: 3 ml Vitamin D (Cholecalciferol (Vitamin D3) 25 Mcg Tablet) 100 mcg PO DAILY [facility] Last Admin: 11/04/22 08:44 Dose: 100 mcg Home Medications Medication Instructions Recorded Confirmed Last Taken Type cetirizine 10 mg tablet (Zyrtec) 10 mg PO DAILY PRN post nasal drip 12/31/21 11/03/22 06/12/22 History cholecalciferol (vitamin D3) 50 100 mcg PO DAILY 12/31/21 11/03/22 06/12/22 History mcg (2,000 unit) tablet (Vitamin D3) clonazepam 0.5 mg tablet 0.5 mg PO BID@1600,2000 12/31/21 11/03/22 06/12/22 History diclofenac sodium 1 % topical gel 1 g topical TID PRN Pain (Scale 12/31/21 11/03/22 06/12/22 History Score 4-6) docusate sodium 100 mg capsule 100 mg PO BID 12/31/21 11/03/22 06/12/22 History (Colace) multivitamin 1 tab PO DAILY 12/31/21 11/03/22 06/12/22 History omega 9-oab-ovp-fish oil 1,000 mg 1 cap PO DAILY 12/31/21 11/03/22 06/12/22 History (120 mg-180 mg) capsule (Fish Oil) risperidone 0.5 mg tablet 0.5 mg PO BID 12/31/21 11/03/22 06/12/22 History acetaminophen 325 mg tablet 650 mg PO Q6H PRN Pain 04/08/22 11/03/22 Unknown History (Tylenol) loperamide 2 mg tablet (Imodium 2 mg PO Q4H PRN Loose Stool 04/08/22 11/03/22 Unknown History A-D) benzocaine 15 mg-menthol 2.6 mg 1 richard PO Q2H PRN Sore Throat 06/12/22 11/03/22 Unknown History lozenges (Cepacol Sore Throat (benzocaine-menthol)) clonidine HCl 0.1 mg tablet 0.1 mg PO DAILY PRN Agitation 06/12/22 11/03/22 Unknown History dextromethorphan-guaifenesin 10 10 ml PO Q4H PRN Congestion 06/12/22 11/03/22 Unknown History mg-200 mg/5 mL oral liquid lorazepam 2 mg tablet (Ativan) 2 mg PO USEASDIRECTD PRN Seizures 06/12/22 11/03/22 Unknown History clonazepam 0.5 mg tablet 1 mg PO DAILY 11/03/22 11/03/22 Unknown History perampanel 2 mg tablet (Fycompa) 2 mg PO BEDTIME 11/03/22 11/03/22 Unknown History Physical Exam Vital Signs: Vital Signs: Last Vital Signs Temp 98.4 F 11/04/22 10:00 Pulse 76 11/04/22 10:00 Resp 14 11/04/22 10:00 BP 135/109 H 11/04/22 10:00 Pulse Ox 99 11/04/22 10:00 O2 Del Method Room Air 11/04/22 10:00 BMI result Body Mass Index 27.4 Neuro: Other: Alert and awake with normal spontaneity of speech fluency comprehension and flat affect. No focal weakness. Face is symmetrical. No obvious seizure-like shaking. Results Labs 11/04/22 06:29 11/04/22 06:29 Labs: Short CBC 11/03/22 11/04/22 Range/Units 17:46 06:29 WBC 7.1 7.9 (4.8-10.8) X10*3/uL Hgb 14.6 14.4 (14.0-18.0) g/dl Hct 42.3 40.3 L (42.0-52.0) % Plt Count 197 186 (160-400) X10*3/uL BMP 11/03/22 11/04/22 17:46 06:29 Sodium 136 134 L Potassium 4.6 3.5 D Chloride 99 99 Carbon Dioxide 26 27 BUN 9 7 L Creatinine 0.72 0.74 Calcium 9.8 9.2 D Liver Function 11/03/22 Range/Units 17:46 Total Bilirubin 0.4 (0.0-1.0) mg/dL AST 37 (5-37) U/L ALT 25 (0-40) U/L Alkaline Phosphatase 37 L (39-117) U/L Albumin 4.5 (3.5-5.0) g/dL Head CT did not reveal any new finding. [id number] left cerebral hemiatrophy noted. 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 He was on 3 antiepileptics without full controlled. At this time my recommendation is to increase dose of preampanel to 4 mg at bedtime and continue rest of his regimen. Time Spent With Patient Time: Total time managing care of this patient today ____ minutes. Procedures Date of Service Date of Service: 11/04/22
--- NOTE | 2022-11-04 11:45 | PC.NURSE ---
rn to rn report given to joseph. pt to be transfered to overflow unit.
[2022-11-04 19:44] LABS: Prolactin 4.9 ng/mL (2.0-18.0)
[2022-11-05] MEDS: Acetaminophen 325 MG TABLET 650 MG PO ×2 (00:08→07:41)
[2022-11-05] MEDS: 0.9 % Sodium Chloride Flush 3 ML SYRINGE IVFLUSH ×4 (00:11→21:14)
[2022-11-05 03:12] VITALS: BP 134/86; PULSE 70; RESP 20; TEMP 36.1; O2SAT 100
[2022-11-05 07:07] VITALS: BP 126/90; PULSE 68; RESP 18; TEMP 36.2; O2SAT 98
[2022-11-05] MEDS: risperiDONE 0.5 MG TABLET PO ×2 (07:30→21:14)
[2022-11-05] MEDS: Cholecalciferol (Vitamin D3) 25 MCG TABLET 100 MCG PO (07:30)
[2022-11-05] MEDS: Divalproex Sodium 500 MG TABLET.DR 1000 MG PO ×2 (07:30→21:13)
[2022-11-05] MEDS: Multivitamin TABLET 1 TAB PO (07:31)
[2022-11-05] MEDS: clonazePAM 1 MG TABLET PO (07:31)
[2022-11-05] MEDS: levETIRAcetam 500 MG TABLET 1500 MG PO ×2 (07:31→21:13)
[2022-11-05] MEDS: Loratadine 10 MG TABLET PO (07:31)
[2022-11-05] MEDS: Docusate Sodium 100 MG CAPSULE PO ×2 (07:31→21:14)
--- NOTE | 2022-11-05 14:55 | P.PNIM_ITS ---
Subjective Subjective Date of Service: 11/05/22 Interval History: No witnessed seizures since admission. Review of Systems Unable to obtain secondary to cognitive impairment Physical Exam Vital Signs: Vital Signs: Last Vital Signs Temp 97.2 F 11/05/22 07:07 Pulse 68 11/05/22 07:07 Resp 18 11/05/22 07:07 BP 126/90 H 11/05/22 07:07 Pulse Ox 98 11/05/22 07:07 O2 Del Method Room Air 11/05/22 07:07 BMI result Body Mass Index 27.4 Const: Other: Awake alert. Responds appropriately Resp: Other: Clear to auscultation bilaterally no rales rhonchi or wheezes Cardio: Other: No S4; positive S1-S2; no S3 murmurs rubs or gallops GI: Other: Soft nontender nondistended normoactive bowel sounds Neuro: Other: Cranial nerves 2-12 grossly intact as tested; motor is 5/5 all extremities. Sensation she had is intact Extrem: Other: No edema bilaterally Objective Data Active Medications Acetaminophen (Acetaminophen 325 Mg Tablet) 650 mg PO Q6H PRN PRN Reason: Pain, Mild (Pain Scale 1-3) Last Admin: 11/05/22 07:41 Dose: 650 mg Documented By: COTEMA Benzocaine (Throat Lozenge, Medicated Lozenge) 1 lozenge MUCOUS MEM Q2H PRN PRN Reason: Sore Throat Clonazepam (Clonazepam 0.5 Mg Tablet) 0.5 mg PO BID@1600,2000 [facility] Last Admin: 11/04/22 20:28 Dose: 0.5 mg Documented By: LYSZ Clonazepam (Clonazepam 1 Mg Tablet) 1 mg PO DAILY [facility] Last Admin: 11/05/22 07:31 Dose: 1 mg Documented By: COTEMA Clonidine HCl (Clonidine Hcl 0.1 Mg Tablet) 0.1 mg PO DAILY PRN; Protocol PRN Reason: Agitation Divalproex Sodium (Divalproex Sodium 500 Mg Tablet.) 1,000 mg PO BID [facility] Last Admin: 11/05/22 07:30 Dose: 1,000 mg Documented By: COTEMA Docusate Sodium (Docusate Sodium 100 Mg Capsule) 100 mg PO BID [facility] Last Admin: 11/05/22 07:31 Dose: 100 mg Documented By: HO.COTEMA Enoxaparin Sodium (Enoxaparin Sodium 40 Mg/0.4 Ml Syringe) 40 mg SUBCUT Q24H [facility] Last Admin: 11/04/22 21:58 Dose: 40 mg Documented By: SADIQ Guaifenesin (Guaifenesin 200 Mg/10 Ml 10 Ml Liquid) 10 ml PO Q4H PRN PRN Reason: Congestion Levetiracetam (Levetiracetam 500 Mg Tablet) 1,500 mg PO BID [facility] Last Admin: 11/05/22 07:31 Dose: 1,500 mg Documented By: JOSELUIS Loperamide HCl (Loperamide Hcl 2 Mg Capsule) 2 mg PO Q4H PRN PRN Reason: Loose Stool Loratadine (Loratadine 10 Mg Tablet) 10 mg PO DAILY PRN PRN Reason: post nasal drip Last Admin: 11/05/22 07:31 Dose: 10 mg Documented By: JOSELUIS Lorazepam (Lorazepam 1 Mg Tablet) 2 mg PO TID PRN PRN Reason: Seizures Multivitamins/Vitamin C (Multivitamin Tablet) 1 tab PO DAILY [facility] Last Admin: 11/05/22 07:31 Dose: 1 tab Documented By: JOSELUIS Patient Own Medication ( Perampanel [Fycompa] 2 Mg Tablet) 2 mg PO BEDTIME [facility] Last Admin: 11/04/22 21:05 Dose: 2 mg Documented By: SADIQ Ondansetron HCl (Ondansetron Hcl 4 Mg/2 Ml Vial) 4 mg IVPUSH Q8H PRN PRN Reason: Nausea and Vomiting Pharmacy Consult (Consult Rx Perform Med Rec) 1 each MISCELLANE ONCE PRN PRN Reason: Consult order Risperidone (Risperidone 0.5 Mg Tablet) 0.5 mg PO BID [facility] Last Admin: 11/05/22 07:30 Dose: 0.5 mg Documented By: ZHANNAEMA Sodium Chloride (0.9 % Sodium Chloride Flush 3 Ml Syringe) 3 ml IVFLUSH QSHIFT [facility] Last Admin: 11/05/22 07:31 Dose: 3 ml Documented By: JOSELUIS Vitamin D (Cholecalciferol (Vitamin D3) 25 Mcg Tablet) 100 mcg PO DAILY [facility] Last Admin: 11/05/22 07:30 Dose: 100 mcg Documented By: ZHANNAEMA Labs 11/04/22 06:29 11/04/22 06:29 Labs: Laboratory Results - last 24 hr 11/03/22 17:46 Prolactin 4.9 Assessment and Plan (1) Intractable epilepsy: Status: Acute Plan 47-year-old male with past medical? history of seizure disorder, presents to the hospital with? what appears to be breakthrough seizures; 1.Breakthrough? seizures -perampanel increased to 4mg @[facility]... As per Neuro input -monitor overnight given med changes -hopeful return to [facility] in a.m. 2.Anxiety -well control -continue benzos at outpatient dosing Full code Lovenox Patient will require ongoing hospitalization to demonstrate stability of seizures with increase meds Time Spent With Patient Time: Total time managing care of this patient today ____ minutes. Quality Stroke Does the patient have a stroke diagnosis?: No VTE Prior VTE?: No VTE Risk Level:: Medical - moderate - high VTE Device Contraindication: Treatment Not Indicated VTE Drug Contraindication: N/A - Med Ordered
[2022-11-05 15:25] VITALS: BP 122/80; PULSE 90; RESP 20; TEMP 36.4; O2SAT 99
[2022-11-05] MEDS: clonazePAM 0.5 MG TABLET PO ×2 (16:12→21:13)
[2022-11-05 19:42] VITALS: BP 128/73; PULSE 85; RESP 17; TEMP 36.4; O2SAT 98
[2022-11-05] MEDS: Enoxaparin Sodium 40 MG/0.4 ML SYRINGE SUBCUT (21:14)
[2022-11-06 04:00] VITALS: RESP 16
[2022-11-06 07:34] VITALS: BP 160/93; PULSE 75; RESP 20; TEMP 36.2; O2SAT 100
[2022-11-06] MEDS: Docusate Sodium 100 MG CAPSULE PO (09:33)
[2022-11-06] MEDS: Multivitamin TABLET 1 TAB PO (09:33)
[2022-11-06] MEDS: risperiDONE 0.5 MG TABLET PO (09:33)
[2022-11-06] MEDS: 0.9 % Sodium Chloride Flush 3 ML SYRINGE IVFLUSH (09:34)
[2022-11-06] MEDS: Divalproex Sodium 500 MG TABLET.DR 1000 MG PO (09:34)
[2022-11-06] MEDS: Cholecalciferol (Vitamin D3) 25 MCG TABLET 100 MCG PO (09:34)
[2022-11-06] MEDS: clonazePAM 1 MG TABLET PO (09:34)
[2022-11-06] MEDS: levETIRAcetam 500 MG TABLET 1500 MG PO (09:34)
--- NOTE | 2022-11-06 12:18 | MHC.CM.PN ---
CM CALLED PTS HALF-WAY AND INFORMED THEM OF PTS PENDING DC CM WAS INFORMED MED FORMS WERE SENT IN WITH EMS AND NEED TO BE COMPLETED PRIOR TO DC MED FORMS OBTAINED FROM [facility] WILL TRANSPORT AT 1600 HOURS
--- NOTE | 2022-11-06 12:21 | PM.DS ---
DS: Providers Provider Date of Service: 11/06/22 Date of admission: 11/05/22 15:37 Date of discharge: 11/06/22 Primary care physician: LOIS Constantino Consults: 11/03/22 22:52 Consult to Neurology Routine Consulting Provider: [facility] Reason for consultation: breakthrough seizure Has provider been notified: No DS: Diagnosis Discharge Diagnosis (1) Intractable epilepsy: Status: Acute DS: Summary Hospital Course Hospital Course: 47-year-old male with past medical history of epileptic seizures, intellectual disability, anxiety disorder, comes in to the hospital with reported episodes of seizure.? Patient is awake, alert to self and place, able to answer questions with yes no.? It appears that patient had 30 episodes of seizure disorder the day prior, he was evaluated in the ED and sent back to his [facility], returns today with another reported episode of seizure, developed a 2 witnessed seizures while in the ED. according to staff at [facility] patient? has been compliant with his antiepileptics, with no missed doses.?? Hospital Course Admitted to [facility] where he remained seizure-free. He was seen in consultation by Neurology who recommended increasing his Fycompa from 2 mg to 4 mg. He has been observed 24 hours after increase of the dose without issue. EEG was done; discussed with Neurology no reason to wait for results before returning to [facility]. Dr. Holland will follow-up as outpatient Time Spent with Patient Time attestation: Total time managing care of this patient today ____ minutes. Discharge coordination time: Greater than 30 minutes Quality: Safe Use of Opioids Does Pt have an Active Cancer Diagnosis on the Problem List?: No Quality: Stroke Does the patient have a stroke diagnosis?: No Physical Exam Vital Signs: Vital Signs: Last Vital Signs Temp 97.2 F 11/06/22 07:34 Pulse 75 11/06/22 07:34 Resp 20 11/06/22 07:34 BP 160/93 H 11/06/22 07:34 Pulse Ox 100 11/06/22 07:34 O2 Del Method Room Air 11/06/22 07:34 BMI result Body Mass Index 27.4 Const: Other: Awake alert. Responds appropriately Resp: Other: Clear to auscultation bilaterally no rales rhonchi or wheezes Cardio: Other: No S4; positive S1-S2; no S3 murmurs rubs or gallops GI: Other: Soft nontender nondistended normoactive bowel sounds Neuro: Other: Cranial nerves 2-12 grossly intact as tested; motor is 5/5 all extremities. Sensation she had is intact Extrem: Other: No edema bilaterally Discharge Plan Discharge Anticipated Discharge Date/Time: 11/06/22 12:06 Patient Disposition: Xfer Other Discharge Diagnosis: Intractable seizures Referrals: Cydney Estrella PA [Primary Care Provider] - 1 Week Discharge Medications: New Perampanel [Fycompa] 4 mg PO BEDTIME Qty: 30 0RF Continued multivitamin Tablet 1 tab PO DAILY cetirizine [Zyrtec] 10 mg Tablet 10 mg PO DAILY PRN (Reason: post nasal drip) clonazepam 0.5 mg tablet 0.5 mg PO BID@1600,2000 docusate sodium [Colace] 100 mg Capsule 100 mg PO BID risperidone 0.5 mg tablet 0.5 mg PO BID diclofenac sodium 1 % Gel 1 g TOPICAL TID PRN (Reason: Pain (Scale Score 4-6)) cholecalciferol (vitamin D3) [Vitamin D3] 50 mcg (2,000 unit) Tablet 100 mcg PO DAILY omega 9-gjz-wot-fish oil [Fish Oil] 1,000 mg (120 mg-180 mg) Capsule 1 cap PO DAILY acetaminophen [Tylenol] 325 mg Tablet 650 mg PO Q6H PRN (Reason: Pain) loperamide [Imodium A-D] 2 mg Tablet 2 mg PO Q4H PRN (Reason: Loose Stool) Rx Instructions: administer after each loose stool until symptoms controlled; do not exceed 8 mg per 24 hrs lorazepam [Ativan] 2 mg Tablet 2 mg PO USEASDIRECTD PRN (Reason: Seizures) Rx Instructions: TAKE 2 TABLET PO AFTER A SEIZURES, MAY REPEAR UP TO A TOTAL OF 3 DOSES IN 12 HOURS Cepacol Sore Throat (maisha-men) 15-2.6 mg Lozenge 1 richard PO Q2H PRN (Reason: Sore Throat) clonidine HCl 0.1 mg Tablet 0.1 mg PO DAILY PRN (Reason: Agitation) dextromethorphan-guaifenesin 10-200 mg/5 mL Liquid 10 ml PO Q4H PRN (Reason: Congestion) Rx Instructions: or cough divalproex 500 mg Tablet,Delayed Release (Dr/Ec) 1,000 mg PO BID Qty: 120 0RF levetiracetam 500 mg Tablet 1,500 mg PO BID Qty: 180 0RF clonazepam 0.5 mg tablet 1 mg PO DAILY Discontinued Fycompa 2 mg tablet 2 mg PO BEDTIME Discharge Orders: Discharge Order (Routine); Ordered 11/06/22 Ordered By: Bryon Lopez Diet: Advance to usual diet Activity on Discharge: As tolerated Stand Alone Forms: Patient Portal Discharge page Care Plan Goals: Resume all meds as taken before hospital Health Concerns: Increase fycompa 4 mg p.o. at bedtime Plan of Treatment: Follow-up with PCP in 2 weeks Assessment: See discharge summary
[2022-11-06 15:04] VITALS: BP 126/85; PULSE 94; RESP 18; TEMP 36.3; O2SAT 99
== END 2022-11-06 16:42 | disposition other institution (70) | DRG 101 ==
LOC: HO.ED 18:03 → HO.EDOVER 23:03 → HO.S3 11-04 16:38
PROVIDERS: Physician Assistant; Admitting Provider Internal Medicine; Emergency Provider Emergency Medicine; PCP Physician Assistant; Visit Provider Hospitalist
DX: G40.911 Epilepsy, unspecified, intractable, with status epilepticus (principal); G93.1 Anoxic brain damage, not elsewhere classified; G93.49 Other encephalopathy; F06.8 Other specified mental disorders due to known physiological condition; F41.9 Anxiety disorder, unspecified; Z20.822 Contact with and (suspected) exposure to COVID-19; Z79.899 Other long term (current) drug therapy
CPT/HCPCS: 36415; 70450; 80048; 80053; 80076; 80164; 80177; 83605; 83735; 84146; 85025; 87635; 93005; 99221; 99283; 99285; J1650; J1953; J2060

== ENCOUNTER 2022-12-26 22:40 | Emergency (ER) | payer MEDICARE, MEDICAID, SELFPAY ==
[2022-12-26 22:56] VITALS: BP 120/86; BP 123/86; PULSE 106; PULSE 91; RESP 14; TEMP 36.9; O2SAT 96; O2SAT 98; BMI 28.0
[2022-12-26 23:30] LABS: MANUAL DIFF FLAG NO
[2022-12-26 23:31] LABS: Basophils Percent Auto 0.3 % (0-2); Hematocrit 39.4 % (42.0-52.0); Hemoglobin 13.5 g/dl (14.0-18.0); Imm Gran Abs Auto 0.01 X10*3/uL (0.00-0.03); Imm Gran Pct Auto 0.1 % (0.0-0.4); Lymphocytes Absolute Auto 1.5 X10*3/uL (1.2-4.9); Lymphocytes Percent Auto 21.4 % (20-40); Mean Corpuscular HGB Conc 34.3 g/dl (31.0-36.0); Mean Corpuscular Hemoglobin 32.4 pg (27.0-33.0); Mean Corpuscular Volume 94.5 fL (80.0-98.0); Mean Platelet Volume 10.2 fL (9.4-12.4); Monocytes Absolute Auto 0.8 X10*3/uL (0.1-1.2); Monocytes Percent Auto 11.3 % (2-11); Neutrophils Absolute Auto 4.6 x10*3/uL (2.0-8.3); Neutrophils Percent Auto 66.9 % (45-73); Platelet Count 159 X10*3/uL (160-400); Red Blood Count 4.17 X10*6/uL (4.60-5.80); Red Cell Distribution Width 12.9 % (11.0-16.0); White Blood Count 6.9 X10*3/uL (4.8-10.8)
--- NOTE | 2022-12-26 23:35 | PC.NURSE ---
pt arrived via [facility] for seizures, denies any pain, no bruising observed, father in room with pt
--- NOTE | 2022-12-26 23:44 | ED.SEIZURE ---
HPI - Seizure General Chief Complaint: Seizure Stated Complaint: SEIZURES Time Seen by Provider: 12/26/22 22:42 History of Present Illness HPI Narrative: Patient is a 47-year-old male with a history of anoxic brain injury as a child. Baseline has a history of seizures and pseudoseizures in the past. Baseline is on Depakote 100 mg twice a day. Keppra 1500 mg twice a day. The dose is unchanged for the last month and a half. Patient went to a concert today. Had 2 seizures in the concert. One seizure on the way to the hospital. Sent in for evaluation as he had 3 seizures today. Been seen in the emergency department multiple times for seizures in the past. The seizures today last about an hour and a half it appears tonic clonic. Patient came in for further evaluation. At this time he wants to go home. There is no trauma. Family at bedside. Been compliant with medications. Patient lives in a retirement. Seizure History: Yes Place: Outdoors Related Data Home Medications Medication Instructions Recorded Confirmed cetirizine 10 mg tablet (Zyrtec) 10 mg PO DAILY PRN post nasal drip 12/31/21 11/03/22 cholecalciferol (vitamin D3) 50 100 mcg PO DAILY 12/31/21 11/03/22 mcg (2,000 unit) tablet (Vitamin D3) clonazepam 0.5 mg tablet 0.5 mg PO BID@1600,2000 12/31/21 11/03/22 diclofenac sodium 1 % topical gel 1 g topical TID PRN Pain (Scale 12/31/21 11/03/22 Score 4-6) docusate sodium 100 mg capsule 100 mg PO BID 12/31/21 11/03/22 (Colace) multivitamin 1 tab PO DAILY 12/31/21 11/03/22 omega 3-ixc-cpk-fish oil 1,000 mg 1 cap PO DAILY 12/31/21 11/03/22 (120 mg-180 mg) capsule (Fish Oil) risperidone 0.5 mg tablet 0.5 mg PO BID 12/31/21 11/03/22 acetaminophen 325 mg tablet 650 mg PO Q6H PRN Pain 04/08/22 11/03/22 (Tylenol) loperamide 2 mg tablet (Imodium 2 mg PO Q4H PRN Loose Stool 04/08/22 11/03/22 A-D) benzocaine 15 mg-menthol 2.6 mg 1 richard PO Q2H PRN Sore Throat 06/12/22 11/03/22 lozenges (Cepacol Sore Throat (benzocaine-menthol)) clonidine HCl 0.1 mg tablet 0.1 mg PO DAILY PRN Agitation 06/12/22 11/03/22 dextromethorphan-guaifenesin 10 10 ml PO Q4H PRN Congestion 06/12/22 11/03/22 mg-200 mg/5 mL oral liquid lorazepam 2 mg tablet (Ativan) 2 mg PO USEASDIRECTD PRN Seizures 06/12/22 11/03/22 clonazepam 0.5 mg tablet 1 mg PO DAILY 11/03/22 11/03/22 Previous Rx's Medication Instructions Recorded levetiracetam 500 mg tablet 1,500 mg PO BID #180 tabs 03/04/22 divalproex 500 mg tablet,delayed 1,000 mg PO BID #120 tabs 06/14/22 release Perampanel [Fycompa] 4 mg PO BEDTIME #30 tabs 11/06/22 Allergies Allergy/AdvReac Type Severity Reaction Status Date / Time No Known Allergies Allergy Verified 11/02/22 16:47 [No Known Allergies*] Review of Systems Review of Systems: Positive history of seizures PMFSH Past Medical History Attestation statement: The following information was validated with the patient. Medical History Anxiety disorder, unspecified Epileptic seizure History of SIADH Hyponatremia Intellectual disability Intractable epilepsy Seizure disorder Surgical History No pertinent past surgical history Family History Family History Other No family history of coronary artery disease Social History Social History Household Members: Other Household Members Other:: group homr Housing: House Housing Other:: retirement Do you presently have visiting nurse or other home services: No Alcohol intake: never Patient Tobacco Use Status: Never used Tobacco Smoked in Last 30 Days: No e-Cigarette/Vaping Use: Never Used Use of substances other than those prescribed or required for medical reasons: No Advance Directives: Yes Advance Directives on File: Yes Advance Directives Date on File: 02/06/22 service: No Current occupational status: disabled Physical Exam Vital Signs: Vital Signs: Last Vital Signs Temp 98.4 F 12/26/22 22:56 Pulse 91 12/26/22 22:56 Resp 14 12/26/22 22:56 BP 123/86 12/26/22 22:56 Pulse Ox 98 12/26/22 22:56 O2 Del Method Room Air 12/26/22 22:56 BMI result Body Mass Index 28.0 Appearance: Alert. No acute distress. Eyes: Pupils equal, round and reactive to light. ENT: Pharynx normal. Neck: Normal inspection. Neck supple. No lymph nodes noted. No crepitus CVS: Normal heart rate and rhythm. Pulses normal. Normal S1 and S2 Respiratory: No respiratory distress. Breath sounds normal. No Wheezing. No rales Abdomen: Soft and nontender. No rigidity. No distention. good BS x4 Skin: Skin warm and dry. Normal skin color. Normal skin turgor. Extremities: No lower extremity edema. Neurovascular intact to all extremities. No Lacerations. No Rash Neuro: No motor deficit. No sensory deficit. Moving all extermities. No slurred speech Medical Decision Making Medical Decision Making [facility] Narrative: Patient presents today after 3 seizures. Depakote levels low. Been compliant with medication at the retirement. Question the patient actually had a seizure patient's lactate is actually normal. He is in no distress. Already on 1500 of Keppra. On baseline level of Depakote. Reliable family. History of seizures. Otherwise electrolytes are okay. Will discharge patient home. Close follow-up with neurology in patient basis. Patient has a history of seizures pseudoseizures Differential Diagnosis Differential Diagnoses: The differential diagnosis associated with the presentation includes Seizure, pseudoseizures Lab Data [facility] Lab Attestation statement: I reviewed the patient's lab results. 12/26/22 23:18 12/26/22 23:18 Labs: Lab Results 12/26/22 12/26/22 12/26/22 Range/Units 23:18 23:18 23:47 WBC 6.9 (4.8-10.8) X10*3/uL RBC 4.17 L (4.60-5.80) X10*6/uL Hgb 13.5 L (14.0-18.0) g/dl Hct 39.4 L (42.0-52.0) % MCV 94.5 (80.0-98.0) fL MCH 32.4 (27.0-33.0) pg MCHC 34.3 (31.0-36.0) g/dl RDW 12.9 (11.0-16.0) % Plt Count 159 L (160-400) X10*3/uL MPV 10.2 (9.4-12.4) fL Immature Gran % (Auto) 0.1 (0.0-0.4) % Neut % (Auto) 66.9 (45-73) % Lymph % (Auto) 21.4 (20-40) % Winn % (Auto) 11.3 H (2-11) % Eos % (Auto) 0.0 (0-4) % Baso % (Auto) 0.3 (0-2) % Lymph # (Auto) 1.5 (1.2-4.9) X10*3/uL Winn # (Auto) 0.8 (0.1-1.2) X10*3/uL Eos # (Auto) 0.0 (0.0-0.4) X10*3/uL Baso # (Auto) 0.0 (0.0-0.2) X10*3/uL Abs Immat Gran (auto) 0.01 (0.00-0.03) X10*3/uL Absolute Neuts (auto) 4.6 (2.0-8.3) x10*3/uL Absolute Nucleated RBC 0.000 (0.0-0.012) X10*3/uL Nucleated RBC % (auto) 0.0 (0.0-0.2) /100WBC Sodium 136 (135-145) mmol/L Potassium 4.1 (3.3-5.1) mmol/L Chloride 104 (96-108) mmol/L Carbon Dioxide 24 (22-29) mmol/L Anion Gap 12 (12-20) BUN 12 (9-16) mg/dL Creatinine 0.73 (0.5-1.4) mg/dL Estim Creat Clear Calc 117.7 Estimated GFR > 60 Random Glucose 102 (60-115) mg/dL Lactic Acid (0.5-2.0) mmol/L Calcium 9.1 (8.4-10.2) mg/dL Total Bilirubin 0.5 (0.0-1.0) mg/dL AST 26 (5-37) U/L ALT 30 (0-40) U/L Alkaline Phosphatase 39 (39-117) U/L Total Protein 6.9 (6.5-8.0) g/dL Albumin 4.1 (3.5-5.0) g/dL Valproic Acid 23.0 L (50.0-100.0) mcg/mL 12/27/22 Range/Units 00:01 WBC (4.8-10.8) X10*3/uL RBC (4.60-5.80) X10*6/uL Hgb (14.0-18.0) g/dl Hct (42.0-52.0) % MCV (80.0-98.0) fL MCH (27.0-33.0) pg MCHC (31.0-36.0) g/dl RDW (11.0-16.0) % Plt Count (160-400) X10*3/uL MPV (9.4-12.4) fL Immature Gran % (Auto) (0.0-0.4) % Neut % (Auto) (45-73) % Lymph % (Auto) (20-40) % Winn % (Auto) (2-11) % Eos % (Auto) (0-4) % Baso % (Auto) (0-2) % Lymph # (Auto) (1.2-4.9) X10*3/uL Winn # (Auto) (0.1-1.2) X10*3/uL Eos # (Auto) (0.0-0.4) X10*3/uL Baso # (Auto) (0.0-0.2) X10*3/uL Abs Immat Gran (auto) (0.00-0.03) X10*3/uL Absolute Neuts (auto) (2.0-8.3) x10*3/uL Absolute Nucleated RBC (0.0-0.012) X10*3/uL Nucleated RBC % (auto) (0.0-0.2) /100WBC Sodium (135-145) mmol/L Potassium (3.3-5.1) mmol/L Chloride (96-108) mmol/L Carbon Dioxide (22-29) mmol/L Anion Gap (12-20) BUN (9-16) mg/dL Creatinine (0.5-1.4) mg/dL Estim Creat Clear Calc Estimated GFR Random Glucose (60-115) mg/dL Lactic Acid 1.0 (0.5-2.0) mmol/L Calcium (8.4-10.2) mg/dL Total Bilirubin (0.0-1.0) mg/dL AST (5-37) U/L ALT (0-40) U/L Alkaline Phosphatase (39-117) U/L Total Protein (6.5-8.0) g/dL Albumin (3.5-5.0) g/dL Valproic Acid (50.0-100.0) mcg/mL Independent Historian Clinical information obtained from an independent historian. History obtained from or confirmed by: Parent and EMS External Record Review External record reviewed: Inpatient record Social Determinants Patient?s care significantly limited by Social Determinants of Health including: Problems related to primary support group Discharge Plan Discharge Clinical Impression: Generalized seizure Patient Disposition: Home, Self-Care Instructions: Recurrent Seizures in Adults (ED) Prescriptions: No Action multivitamin Tablet 1 tab PO DAILY cetirizine [Zyrtec] 10 mg Tablet 10 mg PO DAILY PRN (Reason: post nasal drip) clonazepam 0.5 mg tablet 0.5 mg PO BID@1600,2000 docusate sodium [Colace] 100 mg Capsule 100 mg PO BID risperidone 0.5 mg tablet 0.5 mg PO BID diclofenac sodium 1 % Gel 1 g TOPICAL TID PRN (Reason: Pain (Scale Score 4-6)) cholecalciferol (vitamin D3) [Vitamin D3] 50 mcg (2,000 unit) Tablet 100 mcg PO DAILY omega 7-cpr-npw-fish oil [Fish Oil] 1,000 mg (120 mg-180 mg) Capsule 1 cap PO DAILY acetaminophen [Tylenol] 325 mg Tablet 650 mg PO Q6H PRN (Reason: Pain) loperamide [Imodium A-D] 2 mg Tablet 2 mg PO Q4H PRN (Reason: Loose Stool) Rx Instructions: administer after each loose stool until symptoms controlled; do not exceed 8 mg per 24 hrs lorazepam [Ativan] 2 mg Tablet 2 mg PO USEASDIRECTD PRN (Reason: Seizures) Rx Instructions: TAKE 2 TABLET PO AFTER A SEIZURES, MAY REPEAR UP TO A TOTAL OF 3 DOSES IN 12 HOURS Cepacol Sore Throat (maisha-men) 15-2.6 mg Lozenge 1 richard PO Q2H PRN (Reason: Sore Throat) clonidine HCl 0.1 mg Tablet 0.1 mg PO DAILY PRN (Reason: Agitation) dextromethorphan-guaifenesin 10-200 mg/5 mL Liquid 10 ml PO Q4H PRN (Reason: Congestion) Rx Instructions: or cough divalproex 500 mg Tablet,Delayed Release (Dr/Ec) 1,000 mg PO BID Qty: 120 0RF levetiracetam 500 mg Tablet 1,500 mg PO BID Qty: 180 0RF clonazepam 0.5 mg tablet 1 mg PO DAILY Perampanel [Fycompa] 4 mg PO BEDTIME Qty: 30 0RF Referrals: Roosevelt Avina MD [Physician] - 12/30/22
[2022-12-27 00:02] LABS: Alanine Aminotransferase 30 U/L (0-40); Albumin Level 4.1 g/dL (3.5-5.0); Alkaline Phosphatase 39 U/L (39-117); Anion Gap 12 (12-20); Aspartate Amino Transferase 26 U/L (5-37); Bilirubin Total 0.5 mg/dL (0.0-1.0); Blood Urea Nitrogen 12 mg/dL (9-16); Calcium 9.1 mg/dL (8.4-10.2); Carbon Dioxide 24 mmol/L (22-29); Chloride 104 mmol/L (96-108); Creatinine Clr Calc Pharmacy 117.7; Estimated Glomerular Filt Rate > 60; Glucose Random 102 mg/dL (60-115); Potassium 4.1 mmol/L (3.3-5.1); Sodium 136 mmol/L (135-145); Total Protein 6.9 g/dL (6.5-8.0)
[2022-12-28 20:09] LABS: Prolactin 16.6 ng/mL (2.0-18.0)
[2022-12-29 18:33] LABS: Levetiracetam Keppra 56.3 mcg/mL (6.0-46.0)
== END 2022-12-27 01:15 | disposition home or self-care (01) ==
PROVIDERS: Emergency Provider Emergency Medicine Emergency Medical Services; PCP Family Medicine
DX: G40.409 Other generalized epilepsy and epileptic syndromes, not intractable, without status epilepticus (principal); Z79.899 Other long term (current) drug therapy
CPT/HCPCS: 36415; 80053; 80164; 80177; 83605; 84146; 85025; 99283; 99284

== ENCOUNTER 2023-01-09 13:13 | Observation (INO) | payer MEDICARE, MEDICAID, SELFPAY ==
[2023-01-09 13:16] VITALS: BP 137/97; BP 160/102; PULSE 107; PULSE 88; RESP 137; TEMP 36.5; O2SAT 98; BMI 20.1
--- NOTE | 2023-01-09 13:47 | PC.NURSE ---
Patient just had a seizure Dr. Palmer notified. Patient had 3 seizures at assisted, one in ambulance and just had another one at 1347 am.
--- NOTE | 2023-01-09 14:09 | PC.NURSE ---
pt all of a sudden screaming out obscenities once nurse has left room, pt abruptly calming down once staff returns to bedside.
--- NOTE | 2023-01-09 15:59 | ED.SEIZURE ---
HPI - Seizure General Chief Complaint: Seizure Stated Complaint: SEIZURE DOBBINS X4 Time Seen by Provider: 01/09/23 15:55 Source: patient and EMS Mode of arrival: EMS Limitations: no limitations History of Present Illness HPI Narrative: 47 year old male patient with history of seizures for which he takes daily Keppra 1500 bid, Depakote 1000 BID, Fycompa 4mg QHS, & Clonazepam and as needed Ativan, presents to the ED via ambulance from senior living today due to seizure activity x3. Seizure was witnessed by senior living staff and no trauma was reported. Per senior living staff patient was laying in bed when the three seizure occurred. prison also reported that were out of ativan and could not administer as needed due to shortage. Patient has been admitted here for seizures, last admission was in November 2022. Patient continues to have seizures and has had 3-4 since here in the ED for which he has been administered Ativan. These seizures are lasting 30 seconds to 2 minutes in duration and start with the patient being very agitated to which he then becomes increasingly spastic and tense. heart rate reached up to 170s during these episodes. Patient was unable to answer questions during exam and during physical exam the patient began seizing. MD complaint: seizure Onset (ago): day(s) (3 seizures at senior living, 1 in ambulance and 4 while in ED) Description of Episode: bladder incontinence and bowel incontinence Duration of episode: 2 -: minutes(s) Witnessed: Yes - by Bystander Trauma: No Seizure History: Yes Place: Home Associated symptoms: denies other symptoms Treatments prior to arrival: other (daily ) Related Data Home Medications Medication Instructions Recorded Confirmed cetirizine 10 mg tablet (Zyrtec) 10 mg PO DAILY PRN post nasal drip 12/31/21 01/09/23 cholecalciferol (vitamin D3) 50 100 mcg PO DAILY 12/31/21 01/09/23 mcg (2,000 unit) tablet (Vitamin D3) clonazepam 0.5 mg tablet 0.5 mg PO BID@1600,199912/31/21 01/09/23 diclofenac sodium 1 % topical gel 1 g topical QID PRN Pain (Scale 12/31/21 01/09/23 Score 4-6) docusate sodium 100 mg capsule 100 mg PO BID 12/31/21 01/09/23 (Colace) multivitamin 1 tab PO DAILY 12/31/21 01/09/23 omega 0-ixt-xmx-fish oil 1,000 mg 1 cap PO DAILY 12/31/21 01/09/23 (120 mg-180 mg) capsule (Fish Oil) risperidone 0.5 mg tablet 0.5 mg PO BID 12/31/21 01/09/23 acetaminophen 325 mg tablet 650 mg PO Q6H PRN Pain 04/08/22 01/09/23 (Tylenol) loperamide 2 mg tablet (Imodium 2 mg PO Q4H PRN Loose Stool 04/08/22 01/09/23 A-D) benzocaine 15 mg-menthol 2.6 mg 1 richard PO Q2H PRN Sore Throat 06/12/22 01/09/23 lozenges (Cepacol Sore Throat (benzocaine-menthol)) clonidine HCl 0.1 mg tablet 0.1 mg PO DAILY PRN Agitation 06/12/22 01/09/23 dextromethorphan-guaifenesin 10 10 ml PO Q6H PRN Congestion 06/12/22 01/09/23 mg-200 mg/5 mL oral liquid lorazepam 2 mg tablet (Ativan) 2 mg PO USEASDIRECTD PRN Seizures 06/12/22 01/09/23 clonazepam 0.5 mg tablet 1 mg PO DAILY 11/03/22 01/09/23 Previous Rx's Medication Instructions Recorded levetiracetam 500 mg tablet 1,500 mg PO BID #180 tabs 03/04/22 divalproex 500 mg tablet,delayed 1,000 mg PO BID #120 tabs 06/14/22 release Perampanel [Fycompa] 4 mg PO BEDTIME #30 tabs 11/06/22 Allergies Allergy/AdvReac Type Severity Reaction Status Date / Time No Known Allergies Allergy Verified 11/02/22 16:47 [No Known Allergies*] Review of Systems Review of Systems: Yes Unobtainable due to mental condition and Unobtainable due to mental status PMFSH Past Medical History Medical History Anxiety disorder, unspecified Epileptic seizure History of SIADH Hyponatremia Intellectual disability Intractable epilepsy Seizure disorder Surgical History No pertinent past surgical history Family History Family History Other No family history of coronary artery disease Social History Social History Household Members: Other Household Members Other:: group homr Housing: House Housing Other:: senior living Do you presently have visiting nurse or other home services: No Alcohol intake: never Patient Tobacco Use Status: Never used Tobacco Smoked in Last 30 Days: No e-Cigarette/Vaping Use: Never Used Use of substances other than those prescribed or required for medical reasons: No Advance Directives: Yes Advance Directives on File: Yes Advance Directives Date on File: 02/06/22 Nutrition Risks: No Nutritional Risk service: No Current occupational status: disabled Physical Exam Vital Signs: Vital Signs: Last Vital Signs Temp 97.7 F 01/09/23 13:16 Pulse 107 H 01/09/23 13:16 Resp 137 H 01/09/23 13:16 BP 137/97 H 01/09/23 13:16 Pulse Ox 98 01/09/23 13:16 O2 Del Method Room Air 01/09/23 13:16 BMI result Body Mass Index 20.1 Appearance: No acute distress. Head: normocephalic, atraumatic. Eyes: Pupils equal, round and reactive to light. ENT: Pharynx normal. No tonsillar swelling or exudate. Neck: Normal inspection. Neck supple. No tenderness CVS: Normal heart rate and rhythm. Pulses normal. Respiratory: No respiratory distress. Breath sounds normal. Abdomen: Soft and nontender. +BS x4 Skin: Skin warm and dry. Normal skin color. Normal skin turgor. No rashes. Extremities: No lower extremity edema. No joint swelling. Full ROM and sensation in all extremities. No tenderness to palpation. Neuro/psych: Patient unable to cooperate with exam due to confusion, agitation, and seizure activity. Medications Administered Discontinued Medications Generic Name Dose Route Start Last Admin Trade Name Freq PRN Reason Stop Dose Admin Sodium Chloride 1,000 mls @ 999 mls/hr 01/09/23 16:30 01/09/23 16:22 Ns IVCONT 01/09/23 17:30 999 mls/hr .Q1H1M AUBREY Administration Levetiracetam 1,500 mg 01/09/23 18:38 01/09/23 19:03 Levetiracetam 500 Mg/5 Ml Vial IV 01/09/23 18:39 1,500 mg ONCE ONE Administration Lorazepam 2 mg 01/09/23 13:47 01/09/23 14:01 Lorazepam 2 Mg/Ml Vial IVPUSH 01/09/23 13:48 2 mg ONCE ONE Administration Lorazepam 2 mg 01/09/23 16:16 01/09/23 16:22 Lorazepam 2 Mg/Ml Vial IVPUSH 01/09/23 16:17 2 mg ONCE ONE Administration Medical Decision Making Medical Decision Making [facility] Narrative: 47 year old male patient with history of seizures for which he takes daily Keppra 1500 bid and Fycompa 4mg QHS, & Clonazepam and as needed Ativan, presents to the ED via ambulance from senior living today due to seizure activity x3. Patient has had 4 witnessed seizures here, 1 with EMS and 3 at senior living. Given total of 4mg Ativan IV. Currently awake and alert in between seizures. Doubt status epilepticus. Spoke w/ Dr. Holland who is recommending night keppra 1500 mg now and increasing Fycompa to 6mg, observation. Differential Diagnosis Differential Diagnoses: The differential diagnosis associated with the presentation includes status epilepticus, medication non-compliance, seizure due to infectious cause Admission/Observation Consideration of admission/observation: Escalation of care including admission/observation considered recurrent seizures - admit for med adjustments and obs Consult Healthcare Provider Management of the patient was discussed with: Hospitalist and Pier Master Dr. Holland recommending going up on Fycompa to 6mg QHS and observing Lab Data [facility] Lab Attestation statement: I reviewed the patient's lab results. negative for leukocytosis, no signs of electrolyte derangement. 01/09/23 14:01 01/09/23 14:01 Labs: Lab Results 01/09/23 01/09/23 01/09/23 Range/Units 14:01 14:01 17:11 WBC 5.4 (4.8-10.8) X10*3/uL RBC 4.49 L (4.60-5.80) X10*6/uL Hgb 14.7 (14.0-18.0) g/dl Hct 43.1 (42.0-52.0) % MCV 96.0 (80.0-98.0) fL MCH 32.7 (27.0-33.0) pg MCHC 34.1 (31.0-36.0) g/dl RDW 12.6 (11.0-16.0) % Plt Count 161 (160-400) X10*3/uL MPV 10.5 (9.4-12.4) fL Immature Gran % (Auto) 0.4 (0.0-0.4) % Neut % (Auto) 51.1 (45-73) % Lymph % (Auto) 38.2 (20-40) % [place] % (Auto) 9.3 (2-11) % Eos % (Auto) 0.6 (0-4) % Baso % (Auto) 0.4 (0-2) % Lymph # (Auto) 2.1 (1.2-4.9) X10*3/uL [place] # (Auto) 0.5 (0.1-1.2) X10*3/uL Eos # (Auto) 0.0 (0.0-0.4) X10*3/uL Baso # (Auto) 0.0 (0.0-0.2) X10*3/uL Abs Immat Gran (auto) 0.02 (0.00-0.03) X10*3/uL Absolute Neuts (auto) 2.8 (2.0-8.3) x10*3/uL Absolute Nucleated RBC 0.000 (0.0-0.012) X10*3/uL Nucleated RBC % (auto) 0.0 (0.0-0.2) /100WBC Sodium 140 (135-145) mmol/L Potassium 4.0 (3.3-5.1) mmol/L Chloride 105 (96-108) mmol/L Carbon Dioxide 25 (22-29) mmol/L Anion Gap 14 (12-20) BUN 8 L (9-16) mg/dL Creatinine 0.73 (0.5-1.4) mg/dL Estim Creat Clear Calc 95.9 Estimated GFR > 60 Random Glucose 98 (60-115) mg/dL Calcium 10.4 H D (8.4-10.2) mg/dL Total Bilirubin 0.4 (0.0-1.0) mg/dL Direct Bilirubin 0.1 (0.0-0.5) mg/dL AST 29 (5-37) U/L ALT 34 (0-40) U/L Alkaline Phosphatase 39 (39-117) U/L Total Creatine Kinase (38-174) U/L Total Protein 7.3 (6.5-8.0) g/dL Albumin 4.4 (3.5-5.0) g/dL Lipase 20 (8-78) U/L Urine Color Yellow Urine Appearance Clear Urine pH 7.5 (5.0-9.0) Ur Specific [place] 1.010 (1.005-1.025) Urine Protein Negative (Neg-Trace) mg/dL Urine Glucose (UA) Negative (Negative) mg/dL Urine Ketones Negative (Negative) mg/dL Urine Blood Negative (Negative) Urine Nitrite Negative (Negative) Ur Leukocyte Esterase Negative (Negative) Phenytoin (10.0-20.0) ug/mL Valproic Acid (50.0-100.0) mcg/mL 01/09/23 01/09/23 Range/Units 17:20 17:20 WBC (4.8-10.8) X10*3/uL RBC (4.60-5.80) X10*6/uL Hgb (14.0-18.0) g/dl Hct (42.0-52.0) % MCV (80.0-98.0) fL MCH (27.0-33.0) pg MCHC (31.0-36.0) g/dl RDW (11.0-16.0) % Plt Count (160-400) X10*3/uL MPV (9.4-12.4) fL Immature Gran % (Auto) (0.0-0.4) % Neut % (Auto) (45-73) % Lymph % (Auto) (20-40) % [place] % (Auto) (2-11) % Eos % (Auto) (0-4) % Baso % (Auto) (0-2) % Lymph # (Auto) (1.2-4.9) X10*3/uL [place] # (Auto) (0.1-1.2) X10*3/uL Eos # (Auto) (0.0-0.4) X10*3/uL Baso # (Auto) (0.0-0.2) X10*3/uL Abs Immat Gran (auto) (0.00-0.03) X10*3/uL Absolute Neuts (auto) (2.0-8.3) x10*3/uL Absolute Nucleated RBC (0.0-0.012) X10*3/uL Nucleated RBC % (auto) (0.0-0.2) /100WBC Sodium (135-145) mmol/L Potassium (3.3-5.1) mmol/L Chloride (96-108) mmol/L Carbon Dioxide (22-29) mmol/L Anion Gap (12-20) BUN (9-16) mg/dL Creatinine (0.5-1.4) mg/dL Estim Creat Clear Calc Estimated GFR Random Glucose (60-115) mg/dL Calcium (8.4-10.2) mg/dL Total Bilirubin (0.0-1.0) mg/dL Direct Bilirubin (0.0-0.5) mg/dL AST (5-37) U/L ALT (0-40) U/L Alkaline Phosphatase (39-117) U/L Total Creatine Kinase 100 (38-174) U/L Total Protein (6.5-8.0) g/dL Albumin (3.5-5.0) g/dL Lipase (8-78) U/L Urine Color Urine Appearance Urine pH (5.0-9.0) Ur Specific [place] (1.005-1.025) Urine Protein (Neg-Trace) mg/dL Urine Glucose (UA) (Negative) mg/dL Urine Ketones (Negative) mg/dL Urine Blood (Negative) Urine Nitrite (Negative) Ur Leukocyte Esterase (Negative) Phenytoin < 1.8 L* (10.0-20.0) ug/mL Valproic Acid 91.2 (50.0-100.0) mcg/mL Independent Historian Clinical information obtained from an independent historian. History obtained from or confirmed by: EMS External Record Review External record reviewed: Inpatient record, Outpatient record, Prior outpatient labs and Prior outpatient radiology Tests considered The following testing was considered but not selected: CT head considered - not performed due to no trauma Prescription Management I considered prescription management with: Other (ativan, AED) Chronic Conditions Patient?s care impacted by: Other Social Determinants Patient?s care significantly limited by Social Determinants of Health including: Other Social Determinant of Health Critical Care Time Critical Care Time Critical Care Time: Yes Total Critical Care Time: 36 Attestation: I have personally provided critical care time exclusive of time spent on separately billable procedures. Time includes review of lab data, radiology results, discussion with consultants, and monitoring for potential decompensation. Intervention performed as documented. Discharge Plan Discharge Clinical Impression: Intractable seizure disorder Patient Disposition: Admitted As Inpatient
--- NOTE | 2023-01-09 18:54 | PM.IMHP ---
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 ?Patient was last admitted to the hospital on 11/04/2022 for similar complaint of breakthrough seizures and was discharged with his Fycompa increased to 4 mg p.o at. bedtime. Patient currently on Keppra 1500 b.i.d., Depakote 1000 b.i.d., Fycompa 4 mg q.h.s., and clonazepam p.r.n. and Ativan p.r.n.. Since that time patient has not had any knoan seizures until this morning when staff witnessed the patient having 3 seizure episodes while laying in his bed. Report pt suffered no trauma or falls. The facility was out of Ativan and was thus not administered. Patient had another seizure while EMS was transporting him to the hospital, and patient had 4-5 more witnessed seizure episodes in the emergency department. According to the ED, seizures lasted 30 seconds to 2 minutes in duration, and began with the patient becoming agitated and then increasingly spastic and tense. His heart rate reached up to 170s during these episodes. Patient was given Ativan in the ED. Afterwards patient was postictal, and temporarily unable to answer questions. Patient seen and examined at bedside. Currently only complaints of chronic arthritic pain especially in his feet. Denies headache, vision changes. No chest pain/pressure, palpitations. Denies shortness of breath. No fever, chills, nausea, vomiting, diarrhea, abdominal pain. Denies biting his tongue. Neurology was consulted by ED and recommended increasing patient's Fycompa to 6 mg Q HS. Of note, Fycompa but is not on formulary, and patient's father is set to bring in patient's supply to the hospital from the custodial. In the ED patient was afebrile but tachycardic up to 137 and hypertensive to 137/97. Labs were grossly unremarkable. Keppra levels pending. Depakote levels therapeutic. Pt was treated with lorazepam 2 mg x 2 doses and IVF. Pt will be admitted to the hospital under observation for treatment and further evaluation of breakthrough seizures. <LOIS Pompa - Last Filed: 01/09/23 20:08> Review of Systems Review of Systems: Breakthrough seizure episodes x8+ Chronic osteoarthritis especially in feet Denies trauma, biting tongue falls No headache, vision changes <LOIS Pompa - Last Filed: 01/09/23 20:08> Yes all other systems are reviewed and are negative <LOIS Pompa - Last Filed: 01/09/23 20:08> [facility] Medical History: Medical History Anxiety disorder, unspecified Epileptic seizure History of SIADH Hyponatremia Intellectual disability Intractable epilepsy Seizure disorder <LOIS Pompa - Last Filed: 01/09/23 20:08> Family History: Family History Other No family history of coronary artery disease <LOIS Pompa - Last Filed: 01/09/23 20:08> Surgical History: Surgical History No pertinent past surgical history <LOIS Pompa - Last Filed: 01/09/23 20:08> Social History: Social History Household Members: Other [facility] Housing: House Housing Other:: custodial Do you presently have visiting nurse or other home services: No Alcohol intake: never Patient Tobacco Use Status: Never used Tobacco Smoked in Last 30 Days: No e-Cigarette/Vaping Use: Never Used Use of substances other than those prescribed or required for medical reasons: No Advance Directives: Yes Advance Directives on File: Yes Advance Directives Date on File: 02/06/22 Nutrition Risks: No Nutritional Risk service: No Current occupational status: disabled <LOIS Pompa - Last Filed: 01/09/23 20:08> Meds Allergies/Adverse reactions: Allergies Allergy/AdvReac Type Severity Reaction Status Date / Time No Known Allergies Allergy Verified 11/02/22 16:47 [No Known Allergies*] <LOIS Pompa - Last Filed: 01/09/23 20:08> Active Medications: Current Medications Non-Formulary Medication (Perampanel) 6 mg PO BEDTIME [facility] Pharmacy Consult (Consult Rx Perform Med Rec) 1 each MISCELLANE ONCE PRN PRN Reason: Consult order <LOIS Pompa - Last Filed: 01/09/23 20:08> Home medications: Home Medications Medication Instructions Recorded Confirmed Last Taken Type cetirizine 10 mg tablet (Zyrtec) 10 mg PO DAILY PRN post nasal drip 12/31/21 01/09/23 06/12/22 History cholecalciferol (vitamin D3) 50 100 mcg PO DAILY 12/31/21 01/09/23 06/12/22 History mcg (2,000 unit) tablet (Vitamin D3) clonazepam 0.5 mg tablet 0.5 mg PO BID@1600,2000 12/31/21 01/09/23 06/12/22 History diclofenac sodium 1 % topical gel 1 g topical QID PRN Pain (Scale 12/31/21 01/09/23 06/12/22 History Score 4-6) docusate sodium 100 mg capsule 100 mg PO BID 12/31/21 01/09/23 06/12/22 History (Colace) multivitamin 1 tab PO DAILY 12/31/21 01/09/23 06/12/22 History omega 4-vxx-srb-fish oil 1,000 mg 1 cap PO DAILY 12/31/21 01/09/23 06/12/22 History (120 mg-180 mg) capsule (Fish Oil) risperidone 0.5 mg tablet 0.5 mg PO BID 12/31/21 01/09/23 06/12/22 History acetaminophen 325 mg tablet 650 mg PO Q6H PRN Pain 04/08/22 01/09/23 Unknown History (Tylenol) loperamide 2 mg tablet (Imodium 2 mg PO Q4H PRN Loose Stool 04/08/22 01/09/23 Unknown History A-D) benzocaine 15 mg-menthol 2.6 mg 1 richard PO Q2H PRN Sore Throat 06/12/22 01/09/23 Unknown History lozenges (Cepacol Sore Throat (benzocaine-menthol)) clonidine HCl 0.1 mg tablet 0.1 mg PO DAILY PRN Agitation 06/12/22 01/09/23 Unknown History dextromethorphan-guaifenesin 10 10 ml PO Q6H PRN Congestion 06/12/22 01/09/23 Unknown History mg-200 mg/5 mL oral liquid lorazepam 2 mg tablet (Ativan) 2 mg PO USEASDIRECTD PRN Seizures 06/12/22 01/09/23 Unknown History clonazepam 0.5 mg tablet 1 mg PO DAILY 11/03/22 01/09/23 Unknown History <LOIS Pompa - Last Filed: 01/09/23 20:08> Physical Exam Vital Signs and Narrative: Vital Signs: Last Vital Signs Temp 97.7 F 01/09/23 13:16 Pulse 107 H 01/09/23 13:16 Resp 137 H 01/09/23 13:16 BP 137/97 H 01/09/23 13:16 Pulse Ox 98 01/09/23 13:16 O2 Del Method Room Air 01/09/23 13:16 BMI result Body Mass Index 20.1 <LOIS Pompa - Last Filed: 01/09/23 20:08> Constitutional: Alert, slow to respond, responding appropriately in complete sentences, in no acute distress. Mental Status: Oriented to person, place and time. Eyes: Pupils are equal, round, and reactive to light. Ear, Nose, and Throat: Oropharynx clear, mucous membranes moist. Ears and nose without deformities. Trachea midline. Respiratory: Clear to auscultation bilaterally. No wheezing, rales, or rhonchi. Cardiovascular: S1, S2 regular. No murmurs, rubs, or gallops. Gastrointestinal: Abdomen soft, non-tender, non-distended. Normal bowel sounds. Neurologic: Cranial nerves II-XII are grossly intact bilaterally. No focal neurological deficits. Moves all extremities spontaneously. Skin: No rashes or lesions noted. Musculoskeletal: No cyanosis or clubbing. Extremities: No edema. Psychiatric: Normal mood and affect. <LOIS Pompa - Last Filed: 01/09/23 20:08> Results Labs CBC and Chem 7: 01/09/23 14:01 01/09/23 14:01 <LOIS Pompa - Last Filed: 01/09/23 20:08> Labs: Laboratory Results - last 24 hr 01/09/23 01/09/23 01/09/23 14:01 14:01 17:11 MCV 96.0 MCH 32.7 MCHC 34.1 RDW 12.6 Plt Count 161 MPV 10.5 Immature Gran % (Auto) 0.4 Neut % (Auto) 51.1 Lymph % (Auto) 38.2 [place] % (Auto) 9.3 Eos % (Auto) 0.6 Baso % (Auto) 0.4 Lymph # (Auto) 2.1 [place] # (Auto) 0.5 Eos # (Auto) 0.0 Baso # (Auto) 0.0 Abs Immat Gran (auto) 0.02 Absolute Neuts (auto) 2.8 Absolute Nucleated RBC 0.000 Nucleated RBC % (auto) 0.0 Anion Gap 14 Estim Creat Clear Calc 95.9 Estimated GFR > 60 Random Glucose 98 Calcium 10.4 H D Total Bilirubin 0.4 Direct Bilirubin 0.1 AST 29 ALT 34 Alkaline Phosphatase 39 Total Creatine Kinase Total Protein 7.3 Albumin 4.4 Lipase 20 Urine Color Yellow Urine Appearance Clear Urine pH 7.5 Ur Specific [place] 1.010 Urine Protein Negative Urine Glucose (UA) Negative Urine Ketones Negative Urine Blood Negative Urine Nitrite Negative Ur Leukocyte Esterase Negative Phenytoin Valproic Acid 01/09/23 01/09/23 17:20 17:20 MCV MCH MCHC RDW Plt Count MPV Immature Gran % (Auto) Neut % (Auto) Lymph % (Auto) [place] % (Auto) Eos % (Auto) Baso % (Auto) Lymph # (Auto) [place] # (Auto) Eos # (Auto) Baso # (Auto) Abs Immat Gran (auto) Absolute Neuts (auto) Absolute Nucleated RBC Nucleated RBC % (auto) Anion Gap Estim Creat Clear Calc Estimated GFR Random Glucose Calcium Total Bilirubin Direct Bilirubin AST ALT Alkaline Phosphatase Total Creatine Kinase 100 Total Protein Albumin Lipase Urine Color Urine Appearance Urine pH Ur Specific [place] Urine Protein Urine Glucose (UA) Urine Ketones Urine Blood Urine Nitrite Ur Leukocyte Esterase Phenytoin < 1.8 L* Valproic Acid 91.2 <LOIS Pompa - Last Filed: 01/09/23 20:08> Assessment and Plan (1) Intractable seizure disorder: Status: Acute <LOIS Pompa - Last Filed: 01/09/23 20:08> Pt is a 47-year-old male with a PMH significant for?chronic intractable epilepsy with 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 ?Pt will be admitted to the hospital under observation for treatment and further evaluation of breakthrough seizures. Breakthrough? seizures Patient with 3 witnessed seizures at custodial, another in ambulance on the way to the hospital, 4-5 more episodes in the hospital Unclear etiology,? appears to be compliant with his medications Depakote level therapeutic, Keppra level pending Neurology consulted, recommend increasing Fycompa to 6 mg at bedtime Continue home dose of Keppra and Depakote Seizure precautions Pt will be made NPO d/t aspiration risk Anxiety Continue clonazepam Full Code Attending:?Dr. Lynn DVT Prophylaxis: Lovenox Patient be admitted to the hospital under observation for treatment and further evaluation intractable epilepsy with breakthrough seizures. 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 ?Pt will be admitted to the hospital under observation for treatment and further evaluation of breakthrough seizures. Status epilepticus Patient with 3 witnessed seizures at custodial, another in ambulance on the way to the hospital, 4-5 more episodes in the hospital Unclear etiology,? appears to be compliant with his medications Depakote level therapeutic, Keppra level pending Neurology consulted, recommend increasing Fycompa to 6 mg at bedtime Continue home dose of Keppra and Depakote Seizure precautions Pt will be made NPO d/t aspiration risk Anxiety Continue clonazepam Full Code Attending:?Dr. Lynn DVT Prophylaxis: Lovenox Patient be admitted to the hospital under observation for treatment and further evaluation intractable epilepsy with breakthrough seizures. <Jacqueline Lynn MD - Last Filed: 01/09/23 20:12> Time Spent With Patient Time: Total time managing care of this patient today ____ minutes. <LOIS Pompa - Last Filed: 01/09/23 20:08> Quality Stroke Does the patient have a stroke diagnosis?: No <LOIS Pompa - Last Filed: 01/09/23 20:08> VTE Prior VTE?: No <LOIS Pompa - Last Filed: 01/09/23 20:08> VTE Risk Level:: Medical - moderate - high <LOIS Pompa - Last Filed: 01/09/23 20:08> VTE Device Contraindication: Treatment Not Indicated <LOIS Pompa - Last Filed: 01/09/23 20:08> VTE Drug Contraindication: N/A - Med Ordered <LOIS Pompa - Last Filed: 01/09/23 20:08>
--- NOTE | 2023-01-09 18:59 | PHA.MEDREC ---
Pharmacy Consult ? Medication Reconciliation Pharmacy has completed the medication reconciliation. used list from [facility].
[2023-01-09 22:34] VITALS: BMI 26.6
[2023-01-10] VITALS: BP 118/83; PULSE 69; RESP 16; TEMP 36.2; O2SAT 98
[2023-01-10 03:20] VITALS: BP 131/75; PULSE 56; RESP 16; TEMP 36.2; O2SAT 99
[2023-01-10 07:51] VITALS: BP 142/99; PULSE 73; RESP 18; TEMP 36.1; O2SAT 100
--- NOTE | 2023-01-10 08:12 | HO.PM.IMPN ---
Subjective Subjective Date of Service: 01/10/23 Interval History: no seizure overnight Physical Exam Vital Signs: Vital Signs: Last Vital Signs Temp 97 F 01/10/23 07:51 Pulse 73 01/10/23 07:51 Resp 18 01/10/23 07:51 BP 142/99 H 01/10/23 07:51 Pulse Ox 100 01/10/23 07:51 O2 Del Method Room Air 01/10/23 07:51 BMI result Body Mass Index 26.6 Const: Other: General: AO X 3, no acute distress Resp: CTA bilateral CVS: S1,S2,RRR GI: +BS, NT, no distention Skin: No rash Neuro: motor grossly intact Psych: appropriate affect Objective Data Active Medications Acetaminophen (Acetaminophen 325 Mg Tablet) 650 mg PO Q6H PRN PRN Reason: Pain, Mild (Pain Scale 1-3) Last Admin: 01/09/23 23:10 Dose: 650 mg Documented By: OANH Benzocaine (Throat Lozenge, Medicated Lozenge) 1 lozenge MUCOUS MEM Q2H PRN PRN Reason: Sore Throat Clonazepam (Clonazepam 0.5 Mg Tablet) 0.5 mg PO BID@1600,2000 [facility] Last Admin: 01/09/23 19:54 Dose: 0.5 mg Documented By: DAMIAN Clonazepam (Clonazepam 1 Mg Tablet) 1 mg PO DAILY [facility] Clonidine HCl (Clonidine Hcl 0.1 Mg Tablet) 0.1 mg PO DAILY PRN; Protocol PRN Reason: Agitation Divalproex Sodium (Divalproex Sodium 500 Mg Tablet.) 1,000 mg PO BID [facility] Last Admin: 01/09/23 19:54 Dose: 1,000 mg Documented By: DAMIAN Docusate Sodium (Docusate Sodium 100 Mg Capsule) 100 mg PO BID [facility] Last Admin: 01/09/23 19:54 Dose: 100 mg Documented By: DAMIAN Enoxaparin Sodium (Enoxaparin Sodium 40 Mg/0.4 Ml Syringe) 40 mg SUBCUT Q24H [facility] Last Admin: 01/09/23 19:24 Dose: 40 mg Documented By: ELY Guaifenesin/Dextromethorphan (Guaifenesin Dm 200/20/10 Ml 10 Ml Syrup) 10 ml PO Q6H PRN PRN Reason: Congestion Levetiracetam (Levetiracetam 500 Mg Tablet) 1,500 mg PO BID [facility] Loperamide HCl (Loperamide Hcl 2 Mg Capsule) 2 mg PO Q4H PRN PRN Reason: Loose Stool Loratadine (Loratadine 10 Mg Tablet) 10 mg PO DAILY PRN PRN Reason: post nasal drip Lorazepam (Lorazepam 1 Mg Tablet) 2 mg PO BID PRN PRN Reason: Seizures Melatonin (Melatonin 3 Mg Tablet) 6 mg PO BEDTIME PRN PRN Reason: Insomnia Last Admin: 01/09/23 19:54 Dose: 6 mg Documented By: DAMIAN Multivitamins/Vitamin C (Multivitamin Tablet) 1 tab PO DAILY [facility] Non-Formulary Medication ([place] 5-Bbb-Vdd-Fish Oil [Fish Oil]) 1 cap PO DAILY [facility] Non-Formulary Medication (Perampanel) 4 mg PO BEDTIME [facility] Ondansetron HCl (Ondansetron Hcl 4 Mg/2 Ml Vial) 4 mg IVPUSH Q8H PRN PRN Reason: Nausea and Vomiting Pharmacy Consult (Consult Rx Perform Med Rec) 1 each MISCELLANE ONCE PRN PRN Reason: Consult order Risperidone (Risperidone 0.5 Mg Tablet) 0.5 mg PO BID [facility] Last Admin: 01/09/23 19:54 Dose: 0.5 mg Documented By: DAMIAN Sodium Chloride (0.9 % Sodium Chloride Flush 3 Ml Syringe) 3 ml IVFLUSH QSHIFT [facility] Last Admin: 01/10/23 01:21 Dose: Not Given Documented By: OANH Non-Admin Reason: IV Running Trolamine Salicylate (Trolamine Salicylate 10 % Cream 85 Gm Tube) 1 appl TOPICAL QID PRN PRN Reason: Pain (Scale Score 4-6) Vitamin D (Cholecalciferol (Vitamin D3) 25 Mcg Tablet) 100 mcg PO DAILY [facility] Labs 01/09/23 14:01 01/09/23 14:01 Labs: Laboratory Results - last 24 hr 01/09/23 01/09/23 01/09/23 14:01 14:01 17:11 MCV 96.0 MCH 32.7 MCHC 34.1 RDW 12.6 Plt Count 161 MPV 10.5 Immature Gran % (Auto) 0.4 Neut % (Auto) 51.1 Lymph % (Auto) 38.2 [place] % (Auto) 9.3 Eos % (Auto) 0.6 Baso % (Auto) 0.4 Lymph # (Auto) 2.1 [place] # (Auto) 0.5 Eos # (Auto) 0.0 Baso # (Auto) 0.0 Abs Immat Gran (auto) 0.02 Absolute Neuts (auto) 2.8 Absolute Nucleated RBC 0.000 Nucleated RBC % (auto) 0.0 Anion Gap 14 Estim Creat Clear Calc 95.9 Estimated GFR > 60 Random Glucose 98 Calcium 10.4 H D Total Bilirubin 0.4 Direct Bilirubin 0.1 AST 29 ALT 34 Alkaline Phosphatase 39 Total Creatine Kinase Total Protein 7.3 Albumin 4.4 Lipase 20 Urine Color Yellow Urine Appearance Clear Urine pH 7.5 Ur Specific [place] 1.010 Urine Protein Negative Urine Glucose (UA) Negative Urine Ketones Negative Urine Blood Negative Urine Nitrite Negative Ur Leukocyte Esterase Negative Phenytoin Valproic Acid 01/09/23 01/09/23 17:20 17:20 MCV MCH MCHC RDW Plt Count MPV Immature Gran % (Auto) Neut % (Auto) Lymph % (Auto) [place] % (Auto) Eos % (Auto) Baso % (Auto) Lymph # (Auto) [place] # (Auto) Eos # (Auto) Baso # (Auto) Abs Immat Gran (auto) Absolute Neuts (auto) Absolute Nucleated RBC Nucleated RBC % (auto) Anion Gap Estim Creat Clear Calc Estimated GFR Random Glucose Calcium Total Bilirubin Direct Bilirubin AST ALT Alkaline Phosphatase Total Creatine Kinase 100 Total Protein Albumin Lipase Urine Color Urine Appearance Urine pH Ur Specific [place] Urine Protein Urine Glucose (UA) Urine Ketones Urine Blood Urine Nitrite Ur Leukocyte Esterase Phenytoin < 1.8 L* Valproic Acid 91.2 Assessment and Plan (1) Intractable epilepsy: Status: Inactive Plan 47-year-old male with past medical? history of seizure disorder, presents to the hospital with? what appears to be breakthrough seizures; 1.Breakthrough? seizures for missing med (?Fycompa?) continue depakote and Keppra and restart Fycompa when brought in by father 2.Anxiety --continue outpatient Benzo, and clonidine obs pt Time Spent With Patient Time: Total time managing care of this patient today ____ minutes. Quality Stroke Does the patient have a stroke diagnosis?: No VTE Prior VTE?: No VTE Risk Level:: Medical - moderate - high VTE Device Contraindication: Treatment Not Indicated VTE Drug Contraindication: N/A - Med Ordered
--- NOTE | 2023-01-10 10:44 | PM.NEUROCN ---
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 He was brought to hospital after he was noted to have multiple seizures. It was informed that he has not missed any doses but according to his father he has not been getting Fycompa. Review of Systems Review of Systems: no recent cold or flu-like illness nausea vomiting or diarrhea. Apparently he was taking his medicines per [facility] Past Medical History Medical History Anxiety disorder, unspecified Epileptic seizure History of SIADH Hyponatremia Intellectual disability Intractable epilepsy Seizure disorder Family History Family History Other No family history of coronary artery disease Surgical History Surgical History No pertinent past surgical history Social History Social History Household Members: Other Household Members Other:: group homr Housing: House Housing Other:: nursing home Do you presently have visiting nurse or other home services: No Alcohol intake: never Patient Tobacco Use Status: Never used Tobacco e-Cigarette/Vaping Use: Never Used Advance Directives Date on File: 02/06/22 service: No Current occupational status: disabled Meds Allergies Allergy/AdvReac Type Severity Reaction Status Date / Time No Known Allergies Allergy Verified 11/02/22 16:47 [No Known Allergies*] Active Medications: Current Medications Acetaminophen (Acetaminophen 325 Mg Tablet) 650 mg PO Q6H PRN PRN Reason: Pain, Mild (Pain Scale 1-3) Last Admin: 01/10/23 10:08 Dose: 650 mg Benzocaine (Throat Lozenge, Medicated Lozenge) 1 lozenge MUCOUS MEM Q2H PRN PRN Reason: Sore Throat Clonazepam (Clonazepam 0.5 Mg Tablet) 0.5 mg PO BID@1600,2000 [facility] Last Admin: 01/09/23 19:54 Dose: 0.5 mg Clonazepam (Clonazepam 1 Mg Tablet) 1 mg PO DAILY [facility] Last Admin: 01/10/23 08:25 Dose: 1 mg Clonidine HCl (Clonidine Hcl 0.1 Mg Tablet) 0.1 mg PO DAILY PRN; Protocol PRN Reason: Agitation Divalproex Sodium (Divalproex Sodium 500 Mg Tablet.Dr) 1,000 mg PO BID [facility] Last Admin: 01/10/23 08:24 Dose: 1,000 mg Docusate Sodium (Docusate Sodium 100 Mg Capsule) 100 mg PO BID [facility] Last Admin: 01/10/23 08:25 Dose: 100 mg Enoxaparin Sodium (Enoxaparin Sodium 40 Mg/0.4 Ml Syringe) 40 mg SUBCUT Q24H [facility] Last Admin: 01/09/23 19:24 Dose: 40 mg Guaifenesin/Dextromethorphan (Guaifenesin Dm 200/20/10 Ml 10 Ml Syrup) 10 ml PO Q6H PRN PRN Reason: Congestion Levetiracetam (Levetiracetam 500 Mg Tablet) 1,500 mg PO BID [facility] Last Admin: 01/10/23 08:25 Dose: 1,500 mg Loperamide HCl (Loperamide Hcl 2 Mg Capsule) 2 mg PO Q4H PRN PRN Reason: Loose Stool Loratadine (Loratadine 10 Mg Tablet) 10 mg PO DAILY PRN PRN Reason: post nasal drip Lorazepam (Lorazepam 1 Mg Tablet) 2 mg PO BID PRN PRN Reason: Seizures Melatonin (Melatonin 3 Mg Tablet) 6 mg PO BEDTIME PRN PRN Reason: Insomnia Last Admin: 01/09/23 19:54 Dose: 6 mg Multivitamins/Vitamin C (Multivitamin Tablet) 1 tab PO DAILY [facility] Last Admin: 01/10/23 08:25 Dose: 1 tab Non-Formulary Medication ([place] 4-Vzm-Jwc-Fish Oil [Fish Oil]) 1 cap PO DAILY [facility] Non-Formulary Medication (Perampanel) 4 mg PO BEDTIME [facility] Ondansetron HCl (Ondansetron Hcl 4 Mg/2 Ml Vial) 4 mg IVPUSH Q8H PRN PRN Reason: Nausea and Vomiting Pharmacy Consult (Consult Rx Perform Med Rec) 1 each MISCELLANE ONCE PRN PRN Reason: Consult order Risperidone (Risperidone 0.5 Mg Tablet) 0.5 mg PO BID [facility] Last Admin: 07/09/23 08:25 Dose: 0.5 mg Sodium Chloride (0.9 % Sodium Chloride Flush 3 Ml Syringe) 3 ml IVFLUSH QSHIFT [facility] Last Admin: 01/10/23 08:28 Dose: 3 ml Trolamine Salicylate (Trolamine Salicylate 10 % Cream 85 Gm Tube) 1 appl TOPICAL QID PRN PRN Reason: Pain (Scale Score 4-6) Vitamin D (Cholecalciferol (Vitamin D3) 25 Mcg Tablet) 100 mcg PO DAILY [facility] Last Admin: 01/10/23 08:24 Dose: 100 mcg Home Medications Medication Instructions Recorded Confirmed Last Taken Type cetirizine 10 mg tablet (Zyrtec) 10 mg PO DAILY PRN post nasal drip 12/31/21 01/09/23 06/12/22 History cholecalciferol (vitamin D3) 50 100 mcg PO DAILY 12/31/21 01/09/23 06/12/22 History mcg (2,000 unit) tablet (Vitamin D3) clonazepam 0.5 mg tablet 0.5 mg PO BID@1600,2000 12/31/21 01/09/23 06/12/22 History diclofenac sodium 1 % topical gel 1 g topical QID PRN Pain (Scale 12/31/21 01/09/23 06/12/22 History Score 4-6) docusate sodium 100 mg capsule 100 mg PO BID 12/31/21 01/09/23 06/12/22 History (Colace) multivitamin 1 tab PO DAILY 12/31/21 01/09/23 06/12/22 History omega 4-vbe-ojl-fish oil 1,000 mg 1 cap PO DAILY 12/31/21 01/09/23 06/12/22 History (120 mg-180 mg) capsule (Fish Oil) risperidone 0.5 mg tablet 0.5 mg PO BID 12/31/21 01/09/23 06/12/22 History acetaminophen 325 mg tablet 650 mg PO Q6H PRN Pain 04/08/22 01/09/23 Unknown History (Tylenol) loperamide 2 mg tablet (Imodium 2 mg PO Q4H PRN Loose Stool 04/08/22 01/09/23 Unknown History A-D) benzocaine 15 mg-menthol 2.6 mg 1 richard PO Q2H PRN Sore Throat 06/12/22 01/09/23 Unknown History lozenges (Cepacol Sore Throat (benzocaine-menthol)) clonidine HCl 0.1 mg tablet 0.1 mg PO DAILY PRN Agitation 06/12/22 01/09/23 Unknown History dextromethorphan-guaifenesin 10 10 ml PO Q6H PRN Congestion 06/12/22 01/09/23 Unknown History mg-200 mg/5 mL oral liquid lorazepam 2 mg tablet (Ativan) 2 mg PO USEASDIRECTD PRN Seizures 06/12/22 01/09/23 Unknown History clonazepam 0.5 mg tablet 1 mg PO DAILY 11/03/22 01/09/23 Unknown History Physical Exam Vital Signs: Vital Signs: Last Vital Signs Temp 97 F 01/10/23 07:51 Pulse 73 01/10/23 07:51 Resp 18 01/10/23 07:51 BP 142/99 H 01/10/23 07:51 Pulse Ox 100 01/10/23 07:51 O2 Del Method Room Air 01/10/23 07:51 BMI result Body Mass Index 26.6 Neuro: Other: alert and awake in his usual demeanor with normal spontaneity of speech fluency comprehension and his usual affect. Face is symmetrical. There is no focal or elementary neurological deficit Results Labs 01/09/23 14:01 01/09/23 14:01 Labs: Short CBC 01/09/23 Range/Units 14:01 WBC 5.4 (4.8-10.8) X10*3/uL Hgb 14.7 (14.0-18.0) g/dl Hct 43.1 (42.0-52.0) % Plt Count 161 (160-400) X10*3/uL BMP 01/09/23 14:01 Sodium 140 Potassium 4.0 Chloride 105 Carbon Dioxide 25 BUN 8 L Creatinine 0.73 Calcium 10.4 H D Cardiac Enzymes 01/09/23 Range/Units 17:20 Total Creatine Kinase 100 (38-174) U/L Liver Function 01/09/23 Range/Units 14:01 Total Bilirubin 0.4 (0.0-1.0) mg/dL Direct Bilirubin 0.1 (0.0-0.5) mg/dL AST 29 (5-37) U/L ALT 34 (0-40) U/L Alkaline Phosphatase 39 (39-117) U/L Albumin 4.4 (3.5-5.0) g/dL Urine 01/09/23 Range/Units 17:11 Urine Color Yellow Urine Appearance Clear Urine pH 7.5 (5.0-9.0) Ur Specific [place] 1.010 (1.005-1.025) Urine Protein Negative (Neg-Trace) mg/dL Urine Glucose (UA) Negative (Negative) mg/dL mild left pablo atrophy on CT scan Assessment and Plan (1) Intractable seizure disorder: Status: Acute 47 years old man with 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 He was here with multiple breakthrough seizures. Now he was back to baseline. His father stated that he was not getting Fycompa. My recommendation is to continue his usual medicines and start with Fycompa 2 mg at bedtime with target dose of 4-8 mg. He can be discharged with outpatient follow-up Time Spent With Patient Time: Total time managing care of this patient today ____ minutes. Procedures Date of Service Date of Service: 01/10/23
--- NOTE | 2023-01-10 11:03 | MHC.CM.PN ---
pt from [facility] where he lives with 5 other residents pt is competent pt s father and sister are his guardians called and spokew ith [facility] [employer] [facility] staff who explins that pt ius indepedent in his walking ,his fatjher or staff from [facility] will transport p[t when dcd there is no additional paperwork needed when pt is ready for dc the [facility] has 24/7 staff and an rn that comes 1 x weekly dc plan return to [facility]
--- NOTE | 2023-01-10 12:04 | HE.PHANOTE ---
RE: FYCOMPA PT WAS PRESCRIBED FYCOMPA IN NOVEMBER BUT PT STATES THEY NEVER STARTED IT AT THAT TIME. DR AGOSTO REQUESTED I REMOVE IT FROM PATIENTS HOME MED LIST SO HE CAN RESTART THE PT ON IT A NEW START TODAY 01/10/23. AMM
--- NOTE | 2023-01-10 12:23 | P.DS_ITS ---
DS: Providers Provider Date of Service: 01/10/23 Date of admission: 01/09/23 18:56 Primary care physician: Morgan Rutherford MD Consults: 01/09/23 18:56 Consult to Neurology Routine Consulting Provider: [facility] Reason for consultation: seizure DS: Diagnosis Discharge Diagnosis (1) Intractable seizure disorder: Status: Acute DS: Summary Hospital Course Hospital Course: Patient presented with breakthough seizure, he takes keppra and depakote and during last hospitalization was prescribed Fycompa 4 mg at bedtime but the prescription was never filled. He presented with break through seizure and was observed overnight. Dr. Holland, neurologist is recommending starting Fycompa at 2 mg at bedtime with ultimate target dose of 4 to 8 mg daily. He has not had any further seizure and will be discharged home. Plan discussed with his father . Final diagnosis--breakthrough seizure Time Spent with Patient Time attestation: Total time managing care of this patient today ____ minutes. Discharge coordination time: Greater than 30 minutes Quality: Safe Use of Opioids Does Pt have an Active Cancer Diagnosis on the Problem List?: No Quality: Stroke Does the patient have a stroke diagnosis?: No Physical Exam Vital Signs: Vital Signs: Last Vital Signs Temp 97 F 01/10/23 07:51 Pulse 73 01/10/23 07:51 Resp 18 01/10/23 07:51 BP 142/99 H 01/10/23 07:51 Pulse Ox 100 01/10/23 07:51 O2 Del Method Room Air 01/10/23 07:51 BMI result Body Mass Index 26.6 DS: Data Data Completed and Pending Labs on day of discharge: Laboratory Results - last 24 hr 01/09/23 01/09/23 01/09/23 14:01 14:01 17:11 WBC 5.4 RBC 4.49 L Hgb 14.7 Hct 43.1 MCV 96.0 MCH 32.7 MCHC 34.1 RDW 12.6 Plt Count 161 MPV 10.5 Immature Gran % (Auto) 0.4 Neut % (Auto) 51.1 Lymph % (Auto) 38.2 [place] % (Auto) 9.3 Eos % (Auto) 0.6 Baso % (Auto) 0.4 Lymph # (Auto) 2.1 [place] # (Auto) 0.5 Eos # (Auto) 0.0 Baso # (Auto) 0.0 Abs Immat Gran (auto) 0.02 Absolute Neuts (auto) 2.8 Absolute Nucleated RBC 0.000 Nucleated RBC % (auto) 0.0 Sodium 140 Potassium 4.0 Chloride 105 Carbon Dioxide 25 Anion Gap 14 BUN 8 L Creatinine 0.73 Estim Creat Clear Calc 95.9 Estimated GFR > 60 Random Glucose 98 Calcium 10.4 H D Total Bilirubin 0.4 Direct Bilirubin 0.1 AST 29 ALT 34 Alkaline Phosphatase 39 Total Creatine Kinase Total Protein 7.3 Albumin 4.4 Lipase 20 Urine Color Yellow Urine Appearance Clear Urine pH 7.5 Ur Specific [place] 1.010 Urine Protein Negative Urine Glucose (UA) Negative Urine Ketones Negative Urine Blood Negative Urine Nitrite Negative Ur Leukocyte Esterase Negative Phenytoin Valproic Acid 01/09/23 01/09/23 17:20 17:20 WBC RBC Hgb Hct MCV MCH MCHC RDW Plt Count MPV Immature Gran % (Auto) Neut % (Auto) Lymph % (Auto) [place] % (Auto) Eos % (Auto) Baso % (Auto) Lymph # (Auto) [place] # (Auto) Eos # (Auto) Baso # (Auto) Abs Immat Gran (auto) Absolute Neuts (auto) Absolute Nucleated RBC Nucleated RBC % (auto) Sodium Potassium Chloride Carbon Dioxide Anion Gap BUN Creatinine Estim Creat Clear Calc Estimated GFR Random Glucose Calcium Total Bilirubin Direct Bilirubin AST ALT Alkaline Phosphatase Total Creatine Kinase 100 Total Protein Albumin Lipase Urine Color Urine Appearance Urine pH Ur Specific [place] Urine Protein Urine Glucose (UA) Urine Ketones Urine Blood Urine Nitrite Ur Leukocyte Esterase Phenytoin < 1.8 L* Valproic Acid 91.2 Discharge Plan Discharge Anticipated Discharge Date/Time: 01/10/23 12:02 Patient Disposition: Home, Self-Care Discharge Diagnosis: Seizure Referrals: Morgan Rutherford MD [Primary Care Provider] - 1 Week Discharge Medications: New Fycompa 2 mg tablet 2 mg PO BEDTIME 30 Days Qty: 30 0RF Continued multivitamin Tablet 1 tab PO DAILY cetirizine [Zyrtec] 10 mg Tablet 10 mg PO DAILY PRN (Reason: post nasal drip) clonazepam 0.5 mg tablet 0.5 mg PO BID@1600,2000 docusate sodium [Colace] 100 mg Capsule 100 mg PO BID risperidone 0.5 mg tablet 0.5 mg PO BID diclofenac sodium 1 % Gel 1 g TOPICAL QID PRN (Reason: Pain (Scale Score 4-6)) cholecalciferol (vitamin D3) [Vitamin D3] 50 mcg (2,000 unit) Tablet 100 mcg PO DAILY omega 2-sjb-azb-fish oil [Fish Oil] 1,000 mg (120 mg-180 mg) Capsule 1 cap PO DAILY acetaminophen [Tylenol] 325 mg Tablet 650 mg PO Q6H PRN (Reason: Pain) loperamide [Imodium A-D] 2 mg Tablet 2 mg PO Q4H PRN (Reason: Loose Stool) Rx Instructions: administer after each loose stool until symptoms controlled; do not exceed 8 mg per 24 hrs lorazepam [Ativan] 2 mg Tablet 2 mg PO USEASDIRECTD PRN (Reason: Seizures) Rx Instructions: TAKE 2 TABLET PO AFTER A SEIZURES, MAY REPEAR UP TO A TOTAL OF 3 DOSES IN 12 HOURS Cepacol Sore Throat (maisha-men) 15-2.6 mg Lozenge 1 richard PO Q2H PRN (Reason: Sore Throat) clonidine HCl 0.1 mg Tablet 0.1 mg PO DAILY PRN (Reason: Agitation) dextromethorphan-guaifenesin 10-200 mg/5 mL Liquid 10 ml PO Q6H PRN (Reason: Congestion) Rx Instructions: or cough divalproex 500 mg Tablet,Delayed Release (Dr/Ec) 1,000 mg PO BID Qty: 120 0RF levetiracetam 500 mg Tablet 1,500 mg PO BID Qty: 180 0RF clonazepam 0.5 mg tablet 1 mg PO DAILY Discharge Orders: Discharge Order (Routine); Ordered 01/10/23 Ordered By: Gamal Nova Diet: Advance to usual diet Activity on Discharge: No Restrictions Stand Alone Forms: Patient Portal Discharge page Care Plan Goals: Less frequent seizures Health Concerns: seizure desorder Plan of Treatment: Take Fycompa 2 mg at bedtime--prescription faxed to pharmacy Assessment: as above
--- NOTE | 2023-01-10 12:46 | MHC.CM.PN ---
pt being dcd today father to transport senior care notified of dc
[2023-01-13 09:14] LABS: Levetiracetam Keppra 38.6 mcg/mL (6.0-46.0)
== END 2023-01-10 12:56 | disposition home or self-care (01) ==
LOC: HO.ED 18:45 → HO.EDOVER 19:18 → HO.S3 20:19
PROVIDERS: Physician Assistant; Admitting Provider Student in an Organized Health Care Education/Training Program; Emergency Provider Internal Medicine; PCP Family Medicine; Visit Provider Internal Medicine
DX: G40.919 Epilepsy, unspecified, intractable, without status epilepticus (principal); F79 Unspecified intellectual disabilities
CPT/HCPCS: 36415; 80048; 80076; 80164; 80177; 80185; 81003; 82550; 83690; 85025; 96361; 96372; 96374; 96375; 96376; 99221; 99285; J1650; J1953; J2060

== ENCOUNTER → 2023-01-09 18:56 | Outpatient (BNV) | payer MEDICARE, MEDICAID, SELFPAY | PROVIDERS: Admitting Provider Student in an Organized Health Care Education/Training Program; Emergency Provider Internal Medicine; PCP Family Medicine; Visit Provider Student in an Organized Health Care Education/Training Program | DX: G40.919 Epilepsy, unspecified, intractable, without status epilepticus (principal) | CPT/HCPCS: 99222; 99232; 99239 ==

== ENCOUNTER 2023-02-08 13:19 | Emergency (ER) | payer MEDICARE, MEDICAID, SELFPAY ==
[2023-02-08 13:50] VITALS: BP 160/94; BP 165/106; PULSE 108; PULSE 90; RESP 18; TEMP 37.1; O2SAT 98; O2SAT 99; BMI 26.3
--- NOTE | 2023-02-08 14:10 | ED.SEIZURE ---
HPI - Seizure General Chief Complaint: Seizure Stated Complaint: SEIZURE X 3 SINCE 09 Time Seen by Provider: 02/08/23 14:05 Source: EMS Mode of arrival: EMS Limitations: no limitations History of Present Illness HPI Narrative: this is 47 years old male with history of chronic intractable seizure presented emergency room a the 3 seizure today at the alf. Patient normally takes Depakote 1000 mg twice a day, Keppra 1500 twice a day,Fyncopa fyncopa 2 mg night. He is awake and alert at this time there is no tongue by biting no incontinence of the urine MD complaint: seizure Onset (ago): hour(s) (1) Seizure History: Yes Place: alf Possible Precipitating Event: none Associated symptoms: denies other symptoms Related Data Home Medications Medication Instructions Recorded Confirmed cetirizine 10 mg tablet (Zyrtec) 10 mg PO DAILY PRN post nasal drip 12/31/21 01/09/23 cholecalciferol (vitamin D3) 50 100 mcg PO DAILY 12/31/21 01/09/23 mcg (2,000 unit) tablet (Vitamin D3) clonazepam 0.5 mg tablet 0.5 mg PO BID@1600,2000 12/31/21 01/09/23 diclofenac sodium 1 % topical gel 1 g topical QID PRN Pain (Scale 12/31/21 01/09/23 Score 4-6) docusate sodium 100 mg capsule 100 mg PO BID 12/31/21 01/09/23 (Colace) multivitamin 1 tab PO DAILY 12/31/21 01/09/23 omega 7-jpk-lix-fish oil 1,000 mg 1 cap PO DAILY 12/31/21 01/09/23 (120 mg-180 mg) capsule (Fish Oil) risperidone 0.5 mg tablet 0.5 mg PO BID 12/31/21 01/09/23 acetaminophen 325 mg tablet 650 mg PO Q6H PRN Pain 04/08/22 01/09/23 (Tylenol) loperamide 2 mg tablet (Imodium 2 mg PO Q4H PRN Loose Stool 04/08/22 01/09/23 A-D) benzocaine 15 mg-menthol 2.6 mg 1 richard PO Q2H PRN Sore Throat 06/12/22 01/09/23 lozenges (Cepacol Sore Throat (benzocaine-menthol)) clonidine HCl 0.1 mg tablet 0.1 mg PO DAILY PRN Agitation 06/12/22 01/09/23 dextromethorphan-guaifenesin 10 10 ml PO Q6H PRN Congestion 06/12/22 01/09/23 mg-200 mg/5 mL oral liquid lorazepam 2 mg tablet (Ativan) 2 mg PO USEASDIRECTD PRN Seizures 06/12/22 01/09/23 clonazepam 0.5 mg tablet 1 mg PO DAILY 11/03/22 01/09/23 Previous Rx's Medication Instructions Recorded levetiracetam 500 mg tablet 1,500 mg PO BID #180 tabs 03/04/22 divalproex 500 mg tablet,delayed 1,000 mg PO BID #120 tabs 06/14/22 release perampanel 2 mg tablet (Fycompa) 2 mg PO BEDTIME 30 days #30 tabs 01/10/23 Allergies Allergy/AdvReac Type Severity Reaction Status Date / Time No Known Allergies Allergy Verified 11/02/22 16:47 [No Known Allergies*] Review of Systems ENT: Reports system reviewed and no additional complaints, except as documented Cardiovascular: Cardiovascular: Reports no additional cardiovascular complaints Respiratory: Respiratory: Reports no additional respiratory complaints Neurologic: Reports as per [facility] Past Medical History Medical History Anxiety disorder, unspecified Epileptic seizure History of SIADH Hyponatremia Intellectual disability Intractable epilepsy Seizure disorder Surgical History No pertinent past surgical history Family History Family History Other No family history of coronary artery disease Social History Social History Household Members: Other Household Members Other:: group homr Housing: House Housing Other:: alf Do you presently have visiting nurse or other home services: No Alcohol intake: never Patient Tobacco Use Status: Never used Tobacco Smoked in Last 30 Days: No e-Cigarette/Vaping Use: Never Used Use of substances other than those prescribed or required for medical reasons: No Advance Directives: Yes Advance Directives on File: Yes Advance Directives Date on File: 02/06/22 service: No Current occupational status: disabled Physical Exam Vital Signs: Vital Signs: Last Vital Signs Temp 97.8 F 02/08/23 15:43 Pulse 82 02/08/23 15:43 Resp 15 02/08/23 15:43 BP 155/105 H 02/08/23 15:43 Pulse Ox 100 02/08/23 15:43 O2 Del Method Room Air 02/08/23 15:43 BMI result Body Mass Index 26.3 Const: General: cooperative, comfortable, no acute distress, well developed and alert Nutritional Appearance: average body habitus HEENT: Head: Yes normal to inspection General nose exam: Normal external nose present Face and sinus: Yes normal facial exam Throat: Yes posterior oropharynx normal Neck: Neck: Yes normal visual inspection and Yes full ROM Chest: Chest palpation & inspection: normal inspection of the chest Resp: Effort & Inspection: normal respiratory effort Cardio: Jugular venous distension: no JVD Rate: regular rate Rhythm: regular rhythm GI: Inspection: Yes normal to inspection Palpation (GI): Soft to palpation, not firm, nontender and no guarding Auscultation: normal bowel sounds Skin: General skin exam: no rashes or lesions noted and elasticity normal Lesions: no lesions Rashes: no rashes Neuro: Cranial nerves: Yes CN's II-XII intact bilaterally Course Reevaluation(s) Reevaluation #1: remain stable seizure free,waiting for labs Time: 15:17 Medications Administered Discontinued Medications Generic Name Dose Route Start Last Admin Trade Name Freq PRN Reason Stop Dose Admin Clonazepam 1 mg 02/08/23 14:09 02/08/23 14:15 Clonazepam 1 Mg Tablet PO 02/08/23 14:10 1 mg ONCE ONE Administration Sodium Chloride 1,000 mls @ 999 mls/hr 02/08/23 14:15 02/08/23 14:55 Ns IVCONT 02/08/23 15:15 999 mls/hr .Q1H1M AUBREY Administration Levetiracetam 500 mg in 100 mls @ 400 mls/hr 02/08/23 14:49 02/08/23 15:59 Keppra IV 02/08/23 15:03 Infused ONCE ONE Infusion Medical Decision Making Medical Decision Making MDM Narrative: patient presented with multiple seizure we get the labs, Keppra level,depakote level Differential Diagnosis Differential Diagnoses: The differential diagnosis associated with the presentation includes poor compliance with medicine /infection /electrolytes abnormality Admission/Observation Consideration of admission/observation: Escalation of care including admission/observation considered Lab Data 02/08/23 15:23 02/08/23 15:23 Labs: Lab Results 02/08/23 02/08/23 Range/Units 15:23 15:46 Sodium 138 (135-145) mmol/L Potassium 3.7 (3.3-5.1) mmol/L Chloride 104 (96-108) mmol/L Carbon Dioxide 24 (22-29) mmol/L Anion Gap 14 (12-20) BUN 6 L (9-16) mg/dL Creatinine 0.77 (0.5-1.4) mg/dL Estim Creat Clear Calc 105.3 Estimated GFR > 60 Random Glucose 90 (60-115) mg/dL Calcium 10.2 (8.4-10.2) mg/dL Magnesium 2.0 (1.6-2.6) mg/dL Total Bilirubin 0.4 (0.0-1.0) mg/dL AST 36 (5-37) U/L ALT 31 (0-40) U/L Alkaline Phosphatase 43 (39-117) U/L Total Protein 8.4 H (6.5-8.0) g/dL Albumin 5.0 (3.5-5.0) g/dL Urine Color Yellow Urine Appearance Clear Urine pH 7.5 (5.0-9.0) Ur Specific [place] 1.010 (1.005-1.025) Urine Protein Negative (Neg-Trace) mg/dL Urine Glucose (UA) Negative (Negative) mg/dL Urine Ketones Negative (Negative) mg/dL Urine Blood Negative (Negative) Urine Nitrite Negative (Negative) Ur Leukocyte Esterase Negative (Negative) Urine RBC 0-2 (0-2) /HPF Urine WBC 0-5 (0-5) /HPF Ur Squamous Epith Cells 0-2 (0-2) /HPF Urine Bacteria None Seen (None Seen) Hyaline Casts 0-2 (0-2) /LPF Discharge Plan Discharge Clinical Impression: Generalized seizure, Epileptic seizure Patient Disposition: Still a Patient Prescriptions: No Action multivitamin Tablet 1 tab PO DAILY cetirizine [Zyrtec] 10 mg Tablet 10 mg PO DAILY PRN (Reason: post nasal drip) clonazepam 0.5 mg tablet 0.5 mg PO BID@1600,2000 docusate sodium [Colace] 100 mg Capsule 100 mg PO BID risperidone 0.5 mg tablet 0.5 mg PO BID diclofenac sodium 1 % Gel 1 g TOPICAL QID PRN (Reason: Pain (Scale Score 4-6)) cholecalciferol (vitamin D3) [Vitamin D3] 50 mcg (2,000 unit) Tablet 100 mcg PO DAILY omega 3-mxb-kmx-fish oil [Fish Oil] 1,000 mg (120 mg-180 mg) Capsule 1 cap PO DAILY acetaminophen [Tylenol] 325 mg Tablet 650 mg PO Q6H PRN (Reason: Pain) loperamide [Imodium A-D] 2 mg Tablet 2 mg PO Q4H PRN (Reason: Loose Stool) Rx Instructions: administer after each loose stool until symptoms controlled; do not exceed 8 mg per 24 hrs lorazepam [Ativan] 2 mg Tablet 2 mg PO USEASDIRECTD PRN (Reason: Seizures) Rx Instructions: TAKE 2 TABLET PO AFTER A SEIZURES, MAY REPEAR UP TO A TOTAL OF 3 DOSES IN 12 HOURS Cepacol Sore Throat (maisha-men) 15-2.6 mg Lozenge 1 richard PO Q2H PRN (Reason: Sore Throat) clonidine HCl 0.1 mg Tablet 0.1 mg PO DAILY PRN (Reason: Agitation) dextromethorphan-guaifenesin 10-200 mg/5 mL Liquid 10 ml PO Q6H PRN (Reason: Congestion) Rx Instructions: or cough divalproex 500 mg Tablet,Delayed Release (Dr/Ec) 1,000 mg PO BID Qty: 120 0RF levetiracetam 500 mg Tablet 1,500 mg PO BID Qty: 180 0RF clonazepam 0.5 mg tablet 1 mg PO DAILY Fycompa 2 mg tablet 2 mg PO BEDTIME 30 Days Qty: 30 0RF
[2023-02-08] MEDS: clonazePAM 1 MG TABLET PO (14:15)
[2023-02-08] MEDS: 0.9 % Sodium Chloride 1,000 ML 999 ML IVCONT (14:55)
--- NOTE | 2023-02-08 14:59 | PC.NURSE ---
holding Keppra until labs are drawn per verbal MD order.
[2023-02-08] MEDS: levETIRAcetam in NaCl (iso-os) 500 MG/100 ML PIGGYBACK 400 MG IV (15:29)
[2023-02-08 15:30] LABS: MANUAL DIFF FLAG NO
[2023-02-08 15:39] LABS: Basophils Percent Auto 0.2 % (0-2); Hemoglobin 15.3 g/dl (14.0-18.0); Imm Gran Abs Auto 0.04 X10*3/uL (0.00-0.03); Imm Gran Pct Auto 0.5 % (0.0-0.4); Lymphocytes Absolute Auto 1.2 X10*3/uL (1.2-4.9); Lymphocytes Percent Auto 14.8 % (20-40); Mean Corpuscular Hemoglobin 32.6 pg (27.0-33.0); Mean Corpuscular Volume 95.7 fL (80.0-98.0); Mean Platelet Volume 10.5 fL (9.4-12.4); Monocytes Absolute Auto 0.7 X10*3/uL (0.1-1.2); Monocytes Percent Auto 8.1 % (2-11); Neutrophils Absolute Auto 6.4 x10*3/uL (2.0-8.3); Neutrophils Percent Auto 76.4 % (45-73); Platelet Count 202 X10*3/uL (160-400); Red Cell Distribution Width 13.1 % (11.0-16.0); White Blood Count 8.4 X10*3/uL (4.8-10.8)
--- NOTE | 2023-02-08 15:39 | PC.NURSE ---
pt reports no pain. meds given per mar.
[2023-02-08 15:43] VITALS: BP 155/105; PULSE 82; RESP 15; TEMP 36.6; O2SAT 100
--- NOTE | 2023-02-08 15:47 | MHC.EDTECH ---
THIS PCT ASSUMED CARE OF PATIENT AT 1500 ,VITALS SIGN TAKEN AND URINE SAMPLE COLLECTED AND SENT TO LAB ,LEODAN MOROCHO IS AWARE OF PATIENT HIGH BP .
[2023-02-08 15:56] LABS: Alanine Aminotransferase 31 U/L (0-40); Alkaline Phosphatase 43 U/L (39-117); Anion Gap 14 (12-20); Aspartate Amino Transferase 36 U/L (5-37); Bilirubin Total 0.4 mg/dL (0.0-1.0); Blood Urea Nitrogen 6 mg/dL (9-16); Calcium 10.2 mg/dL (8.4-10.2); Carbon Dioxide 24 mmol/L (22-29); Chloride 104 mmol/L (96-108); Creatinine Clr Calc Pharmacy 105.3; Estimated Glomerular Filt Rate > 60; Glucose Random 90 mg/dL (60-115); Potassium 3.7 mmol/L (3.3-5.1); Sodium 138 mmol/L (135-145); Total Protein 8.4 g/dL (6.5-8.0)
--- NOTE | 2023-02-08 15:59 | PC.NURSE ---
pt has hx of seizures. presents to the ER from [facility] with back to back seizures. pt has not had seizures since arrival to ED. normal sinus on tele. seizure pads in place. update given to [facility].
[2023-02-08 16:04] LABS: Appearance Urine Clear; Color Urine Yellow; Glucose Urine UA Negative (Negative); Leukocyte Esterase Urine Negative (Negative); Nitrite Urine Negative (Negative); PH 7.5 (5.0-9.0); Urine Blood Negative (Negative); Urine Ketones Negative (Negative); Urine Protein Negative (Neg-Trace)
[2023-02-08 16:07] LABS: Bacteria Urine None Seen (None Seen); Hyaline Casts Urine 0-2 /LPF (0-2); RBC Urine 0-2 /HPF (0-2); Squamous Epithelial Cell Urine 0-2 /HPF (0-2); WBC Urine 0-5 /HPF (0-5)
[2023-02-08 16:13] LABS: Amphetamine Screen Urine Not Detected (Not Detect); Barbiturates, Urine Not Detected (Not Detect); Benzodiazepines Screen Urine Not Detected (Not Detect); Cannabinoid Screen Urine Not Detected (Not Detect); Cocaine Screen Urine Not Detected (Not Detect); Fentanyl, urine Not Detected (Not Detect); Opiate Screen Urine Not Detected (Not Detect); Phencyclidine Screen Urine Not Detected (Not Detect)
[2023-02-08 17:02] LABS: Valproate 122.7 mcg/mL (50.0-100.0)
[2023-02-08] MEDS: Acetaminophen 325 MG TABLET 650 MG PO (17:08)
--- NOTE | 2023-02-08 17:09 | PC.NURSE ---
pt reporting lower back pain, Provider aware.
--- NOTE | 2023-02-08 18:20 | PC.NURSE ---
[facility] here to [facility] pt for d/c.
[2023-02-11 10:04] LABS: Levetiracetam Keppra <2.0 mcg/mL (6.0-46.0)
== END 2023-02-08 18:20 | disposition home or self-care (01) ==
PROVIDERS: Emergency Provider Emergency Medicine
DX: G40.419 Other generalized epilepsy and epileptic syndromes, intractable, without status epilepticus (principal); F41.9 Anxiety disorder, unspecified; Z79.899 Other long term (current) drug therapy
CPT/HCPCS: 36415; 80053; 80164; 80177; 80307; 81001; 83735; 85025; 99284; J1953

== ENCOUNTER 2023-02-08 19:58 | Observation (INO) | payer MEDICARE, MEDICAID, SELFPAY ==
[2023-02-08 20:05] VITALS: BP 151/109; PULSE 81; RESP 16; TEMP 36.6; O2SAT 99; BMI 25.6
--- NOTE | 2023-02-08 20:10 | ED_ITS ---
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 Was seen here earlier for 3 seizures with therapeutic Depakote level on [facility] Depakote and [facility]. During stay in the ER patent have any seizure when he reached back to assisted at 3 seizures lasting only for 1-2 minutes at 18:45 19:05 and 19:22 hence patient sent back to ER for further evaluation and admission no head injury no fever patient has no tongue bite or confusion post seizure according to patient's father is unusual Seizure History: Yes Related Data Home Medications Medication Instructions Recorded Confirmed cetirizine 10 mg tablet (Zyrtec) 10 mg PO DAILY PRN post nasal drip 12/31/21 02/08/23 cholecalciferol (vitamin D3) 50 100 mcg PO DAILY 12/31/21 02/08/23 mcg (2,000 unit) tablet (Vitamin D3) clonazepam 0.5 mg tablet 0.5 mg PO BID@1600,2000 12/31/21 02/08/23 diclofenac sodium 1 % topical gel 1 g topical QID PRN Pain (Scale 12/31/21 02/08/23 Score 4-6) docusate sodium 100 mg capsule 100 mg PO BID 12/31/21 02/08/23 (Colace) multivitamin 1 tab PO DAILY 12/31/21 02/08/23 omega 2-dny-ake-fish oil 1,000 mg 1 cap PO DAILY 12/31/21 02/08/23 (120 mg-180 mg) capsule (Fish Oil) risperidone 0.5 mg tablet 0.5 mg PO BID 12/31/21 02/08/23 acetaminophen 325 mg tablet 650 mg PO Q6H PRN Pain 04/08/22 02/08/23 (Tylenol) loperamide 2 mg tablet (Imodium 2 mg PO Q4H PRN Loose Stool 04/08/22 02/08/23 A-D) benzocaine 15 mg-menthol 2.6 mg 1 richard PO Q2H PRN Sore Throat 12/09/22 08/07/23 lozenges (Cepacol Sore Throat (benzocaine-menthol)) clonidine HCl 0.1 mg tablet 0.1 mg PO DAILY PRN Agitation 06/12/22 02/08/23 dextromethorphan-guaifenesin 10 10 ml PO Q6H PRN Congestion 06/12/22 02/08/23 mg-200 mg/5 mL oral liquid lorazepam 2 mg tablet (Ativan) 2 mg PO USEASDIRECTD PRN Seizures 06/12/22 01/09/23 clonazepam 0.5 mg tablet 1 mg PO DAILY 11/03/22 02/08/23 Previous Rx's Medication Instructions Recorded levetiracetam 500 mg tablet 1,500 mg PO BID #180 tabs 03/04/22 divalproex 500 mg tablet,delayed 1,000 mg PO BID #120 tabs 06/14/22 release perampanel 2 mg tablet (Fycompa) 2 mg PO BEDTIME 30 days #30 tabs 01/10/23 Allergies Allergy/AdvReac Type Severity Reaction Status Date / Time No Known Allergies Allergy Verified 02/08/23 20:09 [No Known Allergies*] Review of Systems Review of Systems: Yes all other systems are reviewed and are negative [facility] Past Medical History Medical History Anxiety disorder, unspecified Epileptic seizure History of SIADH Hyponatremia Intellectual disability Intractable epilepsy Seizure disorder Surgical History No pertinent past surgical history Family History Family History Other No family history of coronary artery disease Social History Social History Household Members: Other Household Members Other:: group homr Housing: House Housing Other:: assisted Do you presently have visiting nurse or other home services: No Alcohol intake: never Patient Tobacco Use Status: Never used Tobacco Smoked in Last 30 Days: No e-Cigarette/Vaping Use: Never Used Use of substances other than those prescribed or required for medical reasons: No Advance Directives: Yes Advance Directives on File: Yes Advance Directives Date on File: 02/06/22 service: No Current occupational status: disabled Physical Exam Vital Signs: Vital Signs: Last Vital Signs Temp 97.9 F 02/09/23 00:28 Pulse 81 02/09/23 00:28 Resp 16 02/09/23 00:28 BP 140/96 H 02/09/23 00:28 Pulse Ox 98 02/09/23 00:28 O2 Del Method Room Air 02/09/23 00:28 BMI result Body Mass Index 25.6 Appearance: Alert. Oriented X2-3. No acute distress. Eyes: PERRLA, No Nystagmus ENT: Pharynx normal. Oral Mucosa moist, no tongue bite Neck: Normal inspection. Neck supple. CVS: Normal heart rate and rhythm. Pulses normal. Respiratory: No respiratory distress. Equal air entry bilateral, no wheezing/rales/rhonchi Abdomen: Soft and nontender. Bowel sounds are present, no mass palpable, no CVA tenderness Skin: Skin warm and dry. Normal skin color. Normal skin turgor. Extremities: No lower extremity edema. No calf tenderness Neuro: Oriented X 2-3. No motor deficit. No sensory deficit.No cerebellar signs , cranial nerves II-XII intact Medical Decision Making Medical Decision Making [facility] Narrative: Patient with recurrent seizures will admit for neuro consultation labs were done in previous visit Discharge Plan Discharge Clinical Impression: Generalized seizure Patient Disposition: Admitted As Inpatient
[2023-02-08 20:26] VITALS: BP 166/109; PULSE 90; RESP 16; TEMP 36.8; O2SAT 98
[2023-02-08 21:06] VITALS: BP 152/105; PULSE 88; RESP 18; TEMP 36.3; O2SAT 98
--- NOTE | 2023-02-08 21:11 | MHC.EDTECH ---
Hourly rounds completed,patient placed in hospital attire and placed on the telemetry monitor,vitals were taken and BP is elevated at 152/105 RN Allison made aware. Belongings list completed and placed in chart. Call baltazar within reach.
--- NOTE | 2023-02-08 21:14 | MHC.EDTECH ---
patient urinated 200cc of urinal.
--- NOTE | 2023-02-08 21:39 | PM.IMHP ---
History of Present Illness Date of Service: 02/08/23 Chief Complaint: Breakthrough seizure 47-year-old male with past medical history of epileptic seizures, intellectual disability, anxiety disorder, with history of recurrent breakthrough seizures comes into the hospital with multiple episodes of recurrent recurrent seizures today. Patient is alert oriented, answers questions appropriately. Reports that usually during rating days he has worsening seizures, he has notice a pattern that occurrence when he notices worsening seizure activity during rainy days . According to him he reports compliance with his medications. He was seen in a hospital in January, discharged on January 10, the time neurology saw him and recommended starting Fycompla at 2 mg at bedtime increased to 8 mg daily. According to the med rec use taking 2 mg at this time. Of note he was seen in the ED earlier during the day, he was discharged back to the nursing, but had multiple episodes at the nursing therefore was brought back. No custodial once evaluation by neurologist before they accept him back He denies any chest pain, shortness of breath, no fever or chills, no abdominal pain nausea or vomiting, no diarrhea constipation, no urinary symptoms and no lower extremity edema. On arrival to the ED patient hemodynamically stable with no significant abnormal vitals Labs from earlier today unremarkable with no significant abnormality. Has a valproic acid of 122, Keppra level pending No evidence of acute infection. Patient denies any recent illness Patient will be admitted for further evaluation Review of Systems Review of Systems: Yes all other systems are reviewed and are negative [facility] Medical History Anxiety disorder, unspecified Epileptic seizure History of SIADH Hyponatremia Intellectual disability Intractable epilepsy Seizure disorder Family History Other No family history of coronary artery disease Surgical History No pertinent past surgical history Social History Household Members: Other Household Members Other:: group homr Housing: House Housing Other:: half-way Do you presently have visiting nurse or other home services: No Alcohol intake: never Patient Tobacco Use Status: Never used Tobacco Smoked in Last 30 Days: No e-Cigarette/Vaping Use: Never Used Use of substances other than those prescribed or required for medical reasons: No Advance Directives: Yes Advance Directives on File: Yes Advance Directives Date on File: 02/06/22 service: No Current occupational status: disabled Meds Allergies Allergy/AdvReac Type Severity Reaction Status Date / Time No Known Allergies Allergy Verified 02/08/23 20:09 [No Known Allergies*] Active Medications: Current Medications Acetaminophen (Acetaminophen 325 Mg Tablet) 650 mg PO Q6H PRN PRN Reason: Pain, Mild (Pain Scale 1-3) Docusate Sodium (Docusate Sodium 100 Mg Capsule) 100 mg PO DAILY PRN PRN Reason: Constipation Ondansetron HCl (Ondansetron Hcl 4 Mg/2 Ml Vial) 4 mg IVPUSH Q8H PRN PRN Reason: Nausea and Vomiting Pharmacy Consult (Consult Rx Perform Med Rec) 1 each MISCELLANE ONCE PRN PRN Reason: Consult order Sodium Chloride (0.9 % Sodium Chloride Flush 3 Ml Syringe) 3 ml IVFLUSH [facility] Home Medications Medication Instructions Recorded Confirmed Last Taken Type cetirizine 10 mg tablet (Zyrtec) 10 mg PO DAILY PRN post nasal drip 12/31/21 02/08/23 06/12/22 History cholecalciferol (vitamin D3) 50 100 mcg PO DAILY 12/31/21 02/08/23 06/12/22 History mcg (2,000 unit) tablet (Vitamin D3) clonazepam 0.5 mg tablet 0.5 mg PO BID@1600,2000 12/31/21 02/08/23 06/12/22 History diclofenac sodium 1 % topical gel 1 g topical QID PRN Pain (Scale 12/31/21 02/08/23 06/12/22 History Score 4-6) docusate sodium 100 mg capsule 100 mg PO BID 12/31/21 02/08/23 06/12/22 History (Colace) multivitamin 1 tab PO DAILY 12/31/21 02/08/23 06/12/22 History omega 2-xge-apd-fish oil 1,000 mg 1 cap PO DAILY 12/31/21 02/08/23 06/12/22 History (120 mg-180 mg) capsule (Fish Oil) risperidone 0.5 mg tablet 0.5 mg PO BID 12/31/21 02/08/23 06/12/22 History acetaminophen 325 mg tablet 650 mg PO Q6H PRN Pain 04/08/22 02/08/23 Unknown History (Tylenol) loperamide 2 mg tablet (Imodium 2 mg PO Q4H PRN Loose Stool 04/08/22 02/08/23 Unknown History A-D) benzocaine 15 mg-menthol 2.6 mg 1 richard PO Q2H PRN Sore Throat 06/12/22 02/08/23 Unknown History lozenges (Cepacol Sore Throat (benzocaine-menthol)) clonidine HCl 0.1 mg tablet 0.1 mg PO DAILY PRN Agitation 06/12/22 02/08/23 Unknown History dextromethorphan-guaifenesin 10 10 ml PO Q6H PRN Congestion 06/12/22 02/08/23 Unknown History mg-200 mg/5 mL oral liquid lorazepam 2 mg tablet (Ativan) 2 mg PO USEASDIRECTD PRN Seizures 06/12/22 01/09/23 Unknown History clonazepam 0.5 mg tablet 1 mg PO DAILY 11/03/22 02/08/23 Unknown History Physical Exam Vital Signs and Narrative: Vital Signs: Last Vital Signs Temp 97.4 F 02/08/23 21:06 Pulse 88 02/08/23 21:06 Resp 18 02/08/23 21:06 BP 152/105 H 02/08/23 21:06 Pulse Ox 98 02/08/23 21:06 O2 Del Method Room Air 02/08/23 21:06 BMI result Body Mass Index 25.6 Const: Other: Patient alert oriented answers questions appropriately General: cooperative and no acute distress Eyes: General: appearance normal, both eyes and all related structures Resp: Effort & Inspection: normal respiratory effort Auscultation: clear to auscultation bilaterally Cardio: Rate: regular rate Rhythm: regular rhythm GI: Palpation (GI): Soft to palpation Auscultation: normal bowel sounds Skin: General skin exam: no rashes or lesions noted Neuro: Cognition (Neuro): normal cognition Extrem: General: Yes normal to inspection and Yes no pedal edema Results Labs 02/09/23 05:04 02/09/23 05:04 Assessment and Plan (1) Generalized seizure: Status: Acute (2) Intractable seizure disorder: Status: Acute Plan 37-year-old male with history of intractable seizure disorder with frequent admissions for breakthrough seizure comes in with multiple episodes of seizures # breakthrough seizure - will likely need increase of hisFyompa , is currently on 2 mg, will increase it to 4 - neurology consulted for any further evaluation or recommendation Will continue all his other medications Time Spent With Patient Time: Total time managing care of this patient today ____ minutes. Quality Stroke Does the patient have a stroke diagnosis?: No VTE Prior VTE?: No VTE Risk Level:: Medical - low VTE Device Contraindication: Treatment Not Indicated VTE Drug Contraindication: Treatment Not Indicated
[2023-02-08 21:43] VITALS: BP 142/105; PULSE 91; RESP 18
[2023-02-09 00:28] VITALS: BP 140/96; PULSE 81; RESP 16; TEMP 36.6; O2SAT 98
[2023-02-09] MEDS: 0.9 % Sodium Chloride Flush 3 ML SYRINGE IVFLUSH ×3 (03:14→20:36)
[2023-02-09] MEDS: Acetaminophen 325 MG TABLET 650 MG PO ×4 (03:49→23:07)
[2023-02-09 04:45] VITALS: BP 127/84; PULSE 71; RESP 17; TEMP 37.1; O2SAT 99
[2023-02-09 05:31] LABS: MANUAL DIFF FLAG NO
[2023-02-09 05:34] LABS: Basophils Percent Auto 0.4 % (0-2); Eosinophils Percent Auto 0.3 % (0-4); Hemoglobin 14.4 g/dl (14.0-18.0); Imm Gran Abs Auto 0.03 X10*3/uL (0.00-0.03); Imm Gran Pct Auto 0.4 % (0.0-0.4); Lymphocytes Absolute Auto 2.7 X10*3/uL (1.2-4.9); Lymphocytes Percent Auto 35.2 % (20-40); Mean Corpuscular HGB Conc 34.3 g/dl (31.0-36.0); Mean Corpuscular Hemoglobin 32.5 pg (27.0-33.0); Mean Corpuscular Volume 94.8 fL (80.0-98.0); Mean Platelet Volume 10.4 fL (9.4-12.4); Monocytes Absolute Auto 1.1 X10*3/uL (0.1-1.2); Monocytes Percent Auto 14.1 % (2-11); Neutrophils Absolute Auto 3.8 x10*3/uL (2.0-8.3); Neutrophils Percent Auto 49.6 % (45-73); Platelet Count 168 X10*3/uL (160-400); Red Blood Count 4.43 X10*6/uL (4.60-5.80); Red Cell Distribution Width 13.2 % (11.0-16.0); White Blood Count 7.6 X10*3/uL (4.8-10.8)
[2023-02-09 05:47] LABS: Anion Gap 12 (12-20); Blood Urea Nitrogen 7 mg/dL (9-16); Calcium 8.9 mg/dL (8.4-10.2); Carbon Dioxide 23 mmol/L (22-29); Chloride 105 mmol/L (96-108); Creatinine Clr Calc Pharmacy 104.5; Estimated Glomerular Filt Rate > 60; Glucose Random 105 mg/dL (60-115); Potassium 3.3 mmol/L (3.3-5.1); Sodium 137 mmol/L (135-145)
[2023-02-09 06:42] VITALS: BP 120/85; PULSE 70; RESP 17; TEMP 36.9; O2SAT 100
--- NOTE | 2023-02-09 07:53 | PC.NURSE ---
pt medications unverified; pharmacy states need to reach out to senior living for meds.
--- NOTE | 2023-02-09 08:38 | PHA.MEDREC ---
MED REC COMPLETED BY NURSING, REVIEWED IN AM BY PHYSICIAN [facility] Pharmacy Consult ? Medication Reconciliation Pharmacy has completed the medication reconciliation.
[2023-02-09] MEDS: Cholecalciferol (Vitamin D3) 25 MCG TABLET 100 MCG PO (09:01)
[2023-02-09] MEDS: levETIRAcetam 500 MG TABLET 1500 MG PO ×2 (09:01→20:35)
[2023-02-09] MEDS: Multivitamin TABLET 1 TAB PO (09:01)
[2023-02-09] MEDS: Docusate Sodium 100 MG CAPSULE PO ×2 (09:02→20:35)
[2023-02-09] MEDS: clonazePAM 1 MG TABLET PO (09:02)
[2023-02-09] MEDS: risperiDONE 0.5 MG TABLET PO ×2 (09:02→20:34)
--- NOTE | 2023-02-09 11:27 | P.PNIM_ITS ---
Subjective Subjective Date of Service: 02/09/23 Interval History: no more seizures Physical Exam Vital Signs: Vital Signs: Last Vital Signs Temp 98.5 F 02/09/23 06:42 Pulse 70 02/09/23 06:42 Resp 17 02/09/23 06:42 BP 120/85 02/09/23 06:42 Pulse Ox 100 02/09/23 06:42 O2 Del Method Room Air 02/09/23 06:42 BMI result Body Mass Index 25.6 Const: Other: General: AO X 3, no acute distress Resp: CTA bilateral CVS: S1,S2,RRR GI: +BS, NT, no distention Skin: No rash Neuro: motor grossly intact Psych: appropriate affect Objective Data Active Medications Acetaminophen (Acetaminophen 325 Mg Tablet) 650 mg PO Q6H PRN PRN Reason: Pain, Mild (Pain Scale 1-3) Last Admin: 02/09/23 03:49 Dose: 650 mg Documented By: BIMAL Benzocaine (Throat Lozenge, Medicated Lozenge) 1 lozenge MUCOUS MEM Q2H PRN PRN Reason: Sore Throat Clonazepam (Clonazepam 0.5 Mg Tablet) 0.5 mg PO BID@1600,2000 [facility] Clonazepam (Clonazepam 1 Mg Tablet) 1 mg PO DAILY [facility] Last Admin: 02/09/23 09:02 Dose: 1 mg Documented By: HERLINDA Clonidine HCl (Clonidine Hcl 0.1 Mg Tablet) 0.1 mg PO DAILY PRN; Protocol PRN Reason: Agitation Divalproex Sodium (Divalproex Sodium 250 Mg Tablet.Dr) 750 mg PO BID [facility] Docusate Sodium (Docusate Sodium 100 Mg Capsule) 100 mg PO DAILY PRN PRN Reason: Constipation Docusate Sodium (Docusate Sodium 100 Mg Capsule) 100 mg PO BID [facility] Last Admin: 02/09/23 09:02 Dose: 100 mg Documented By: HERLINDA Levetiracetam (Levetiracetam 500 Mg Tablet) 1,500 mg PO BID [facility] Last Admin: 02/09/23 09:01 Dose: 1,500 mg Documented By: HERLINDA Loperamide HCl (Loperamide Hcl 2 Mg Capsule) 2 mg PO Q4H PRN PRN Reason: Loose Stool Loratadine (Loratadine 10 Mg Tablet) 10 mg PO DAILY PRN PRN Reason: post nasal drip Multivitamins/Vitamin C (Multivitamin Tablet) 1 tab PO DAILY [facility] Last Admin: 02/09/23 09:01 Dose: 1 tab Documented By: HERLINDA Non-Formulary Medication (Perampanel [Fycompa]) 4 mg PO BEDTIME [facility] Ondansetron HCl (Ondansetron Hcl 4 Mg/2 Ml Vial) 4 mg IVPUSH Q8H PRN PRN Reason: Nausea and Vomiting Pharmacy Consult (Consult Rx Perform Med Rec) 1 each MISCELLANE ONCE PRN PRN Reason: Consult order Risperidone (Risperidone 0.5 Mg Tablet) 0.5 mg PO BID [facility] Last Admin: 02/09/23 09:02 Dose: 0.5 mg Documented By: HERLINDA Sodium Chloride (0.9 % Sodium Chloride Flush 3 Ml Syringe) 3 ml IVFLUSH QSHIFT [facility] Last Admin: 02/09/23 10:58 Dose: Not Given Documented By: HENRIETTA Non-Admin Reason: Not In Room Vitamin D (Cholecalciferol (Vitamin D3) 25 Mcg Tablet) 100 mcg PO DAILY [facility] Last Admin: 02/09/23 09:01 Dose: 100 mcg Documented By: HERLINDA Labs 02/09/23 05:04 02/09/23 05:04 Labs: Laboratory Results - last 24 hr 02/09/23 02/09/23 05:04 05:04 MCV 94.8 MCH 32.5 MCHC 34.3 RDW 13.2 Plt Count 168 MPV 10.4 Immature Gran % (Auto) 0.4 Neut % (Auto) 49.6 Lymph % (Auto) 35.2 [place] % (Auto) 14.1 H Eos % (Auto) 0.3 Baso % (Auto) 0.4 Lymph # (Auto) 2.7 [place] # (Auto) 1.1 Eos # (Auto) 0.0 Baso # (Auto) 0.0 Abs Immat Gran (auto) 0.03 Absolute Neuts (auto) 3.8 Absolute Nucleated RBC 0.000 Nucleated RBC % (auto) 0.0 Anion Gap 12 Estim Creat Clear Calc 104.5 Estimated GFR > 60 Random Glucose 105 Calcium 8.9 D Assessment and Plan (1) Intractable epilepsy: Status: Inactive Plan 47-year-old male with past medical? history of seizure disorder, presents to the hospital with? what appears to be breakthrough seizures; 1.Breakthrough? seizures, likely from supratherapeutic depakoate level, reduce depakote to 750 bid, continue Fycompa, continue keppra, Neuro eval 2.Anxiety --continue outpatient Benzo, risperidone, and clonidine, obs pt Time Spent With Patient Time: Total time managing care of this patient today ____ minutes. Quality Stroke Does the patient have a stroke diagnosis?: No VTE Prior VTE?: No VTE Risk Level:: Medical - low VTE Device Contraindication: Treatment Not Indicated VTE Drug Contraindication: Treatment Not Indicated
[2023-02-09 16:00] VITALS: BP 127/76; PULSE 91; RESP 18; TEMP 36; O2SAT 98
--- NOTE | 2023-02-09 17:02 | PM.NEUROCN ---
History of Present Illness Data of Consult Service Date: 02/09/23 Primary Care Provider: Unknown Physician HPI Reason for consult: Multiple seizures This is a 47-year-old male with static encepjhalopathy , right parietal encephalomalacia and intractible Sz, intellectual disability, anxiety disorder, admitted with multiple recurrent breakthrough seizures .? Patient is alert oriented, answers questions appropriately.? He has noticed a pattern of worsening seizure activity during rainy days .? According to him he reports compliance with his medications.? He was seen in a hospital in January, discharged on January 10, the time neurology saw him and recommended starting Fycompla at 2 mg at bedtime increased to 8 mg daily.? According to the med rec use taking 2 mg at this time. He is on Depakote 1gm bid with high drug level , and Keppra 1500mg bid - level pending a, and Fycompa 2mg Review of Systems Review of Systems: Yes all other systems are reviewed and are negative PMFSH Past Medical History Medical History Anxiety disorder, unspecified Epileptic seizure History of SIADH Hyponatremia Intellectual disability Intractable epilepsy Seizure disorder Family History Family History Other No family history of coronary artery disease Surgical History Surgical History No pertinent past surgical history Social History Social History Household Members: Other Household Members Other:: groop home Housing: House Housing Other:: [facility] Do you presently have visiting nurse or other home services: No Alcohol intake: never Patient Tobacco Use Status: Never used Tobacco e-Cigarette/Vaping Use: Never Used Advance Directives Date on File: 02/06/22 service: No Current occupational status: disabled Meds Allergies Allergy/AdvReac Type Severity Reaction Status Date / Time No Known Allergies Allergy Verified 02/08/23 20:09 [No Known Allergies*] Active Medications: Current Medications Acetaminophen (Acetaminophen 325 Mg Tablet) 650 mg PO Q6H PRN PRN Reason: Pain, Mild (Pain Scale 1-3) Last Admin: 02/09/23 11:36 Dose: 650 mg Benzocaine (Throat Lozenge, Medicated Lozenge) 1 lozenge MUCOUS MEM Q2H PRN PRN Reason: Sore Throat Clonazepam (Clonazepam 0.5 Mg Tablet) 0.5 mg PO BID@1600,2000 [facility] Clonazepam (Clonazepam 1 Mg Tablet) 1 mg PO DAILY [facility] Last Admin: 02/09/23 09:02 Dose: 1 mg Clonidine HCl (Clonidine Hcl 0.1 Mg Tablet) 0.1 mg PO DAILY PRN; Protocol PRN Reason: Agitation Divalproex Sodium (Divalproex Sodium 250 Mg Tablet.Dr) 750 mg PO BID [facility] Docusate Sodium (Docusate Sodium 100 Mg Capsule) 100 mg PO DAILY PRN PRN Reason: Constipation Docusate Sodium (Docusate Sodium 100 Mg Capsule) 100 mg PO BID [facility] Last Admin: 02/09/23 09:02 Dose: 100 mg Levetiracetam (Levetiracetam 500 Mg Tablet) 1,500 mg PO BID [facility] Last Admin: 02/09/23 09:01 Dose: 1,500 mg Loperamide HCl (Loperamide Hcl 2 Mg Capsule) 2 mg PO Q4H PRN PRN Reason: Loose Stool Loratadine (Loratadine 10 Mg Tablet) 10 mg PO DAILY PRN PRN Reason: post nasal drip Multivitamins/Vitamin C (Multivitamin Tablet) 1 tab PO DAILY [facility] Last Admin: 02/09/23 09:01 Dose: 1 tab Patient Own Med ( Perampanel [Fycompa] 2 Mg Tablet) 2 mg PO BEDTIME [facility] Last Admin: 02/09/23 11:58 Dose: Not Given Ondansetron HCl (Ondansetron Hcl 4 Mg/2 Ml Vial) 4 mg IVPUSH Q8H PRN PRN Reason: Nausea and Vomiting Pharmacy Consult (Consult Rx Perform Med Rec) 1 each MISCELLANE ONCE PRN PRN Reason: Consult order Risperidone (Risperidone 0.5 Mg Tablet) 0.5 mg PO BID [facility] Last Admin: 02/09/23 09:02 Dose: 0.5 mg Sodium Chloride (0.9 % Sodium Chloride Flush 3 Ml Syringe) 3 ml IVFLUSH QSHIFT [facility] Last Admin: 02/09/23 10:58 Dose: Not Given Vitamin D (Cholecalciferol (Vitamin D3) 25 Mcg Tablet) 100 mcg PO DAILY [facility] Last Admin: 02/09/23 09:01 Dose: 100 mcg Home Medications Medication Instructions Recorded Confirmed Last Taken Type cetirizine 10 mg tablet (Zyrtec) 10 mg PO DAILY PRN post nasal drip 12/31/21 02/08/23 06/12/22 History cholecalciferol (vitamin D3) 50 100 mcg PO DAILY 12/31/21 02/08/23 06/12/22 History mcg (2,000 unit) tablet (Vitamin D3) clonazepam 0.5 mg tablet 0.5 mg PO BID@1600,2000 12/31/21 02/08/23 06/12/22 History diclofenac sodium 1 % topical gel 1 g topical Q4H PRN Pain (Scale 12/31/21 02/09/23 06/12/22 History Score 4-6) docusate sodium 100 mg capsule 100 mg PO BID 12/31/21 02/08/23 06/12/22 History (Colace) multivitamin 1 tab PO DAILY 12/31/21 02/08/23 06/12/22 History omega 3-fxc-rfv-fish oil 1,000 mg 1 cap PO DAILY 12/31/21 02/08/23 06/12/22 History (120 mg-180 mg) capsule (Fish Oil) risperidone 0.5 mg tablet 0.5 mg PO BID 12/31/21 02/08/23 06/12/22 History acetaminophen 325 mg tablet 650 mg PO Q6H PRN Pain 04/08/22 02/08/23 Unknown History (Tylenol) loperamide 2 mg tablet (Imodium 2 mg PO Q4H PRN Loose Stool 04/08/22 02/08/23 Unknown History A-D) benzocaine 15 mg-menthol 2.6 mg 1 richard PO Q2H PRN Sore Throat 06/12/22 02/08/23 Unknown History lozenges (Cepacol Sore Throat (benzocaine-menthol)) clonidine HCl 0.1 mg tablet 0.1 mg PO DAILY PRN Agitation 06/12/22 02/08/23 Unknown History dextromethorphan-guaifenesin 10 10 ml PO Q4H PRN Congestion 06/12/22 02/09/23 Unknown History mg-200 mg/5 mL oral liquid clonazepam 0.5 mg tablet 1 mg PO DAILY 11/03/22 02/08/23 Unknown History calcium carbonate 400 mg calcium 1,000 mg PO DAILY 02/09/23 02/09/23 Unknown History (1,000 mg) chewable tablet (Tums Ultra) Physical Exam Vital Signs: Vital Signs: Last Vital Signs Temp 96.8 F 02/09/23 16:00 Pulse 91 02/09/23 16:00 Resp 18 02/09/23 16:00 BP 127/76 02/09/23 16:00 Pulse Ox 98 02/09/23 16:00 O2 Del Method Room Air 02/09/23 16:00 BMI result Body Mass Index 25.6 Const: Other: General: AO X 3, no acute distress Resp: CTA bilateral CVS: S1,S2,RRR GI: +BS, NT, no distention Skin: No rash Neuro: motor grossly intact Psych: appropriate affect General: cooperative and no acute distress Eyes: General: appearance normal, both eyes and all related structures Resp: Effort & Inspection: normal respiratory effort Auscultation: clear to auscultation bilaterally Cardio: Rate: regular rate Rhythm: regular rhythm GI: Palpation (GI): Soft to palpation Auscultation: normal bowel sounds Skin: General skin exam: no rashes or lesions noted Neuro: Other: non focal exam Cognition (Neuro): normal cognition Extrem: General: Yes normal to inspection and Yes no pedal edema Results Labs 02/09/23 05:04 02/09/23 05:04 Labs: Short CBC 02/09/23 Range/Units 05:04 WBC 7.6 (4.8-10.8) X10*3/uL Hgb 14.4 (14.0-18.0) g/dl Hct 42.0 (42.0-52.0) % Plt Count 168 (160-400) X10*3/uL BMP 02/09/23 05:04 Sodium 137 Potassium 3.3 Chloride 105 Carbon Dioxide 23 BUN 7 L Creatinine 0.66 Calcium 8.9 D Assessment and Plan (1) Intractable epilepsy: Status: Inactive Increase Fycompa to 2mg bid for 1 wk then to 6mg/ day. Continue current dose of Depakote and Keppra. Plan 47-year-old male with past medical? history of seizure disorder, presents to the hospital with? what appears to be breakthrough seizures; 1.Breakthrough? seizures, likely from supratherapeutic depakoate level, reduce depakote to 750 bid, continue Fycompa, continue keppra, Neuro eval 2.Anxiety --continue outpatient Benzo, risperidone, and clonidine, obs pt Time Spent With Patient Time: Total time managing care of this patient today ____ minutes. Procedures Date of Service Date of Service: 02/09/23
[2023-02-09] MEDS: clonazePAM 0.5 MG TABLET PO ×2 (17:04→20:35)
[2023-02-09 20:00] VITALS: BP 119/80; PULSE 97; RESP 18; TEMP 35.9; O2SAT 98
[2023-02-09] MEDS: Divalproex Sodium 250 MG TABLET.DR 750 MG PO (20:34)
[2023-02-10 04:00] VITALS: BP 96/63; PULSE 64; RESP 16; TEMP 36; O2SAT 98
[2023-02-10 07:45] VITALS: BP 124/79; PULSE 70; RESP 20; TEMP 36.8; O2SAT 99
[2023-02-10] MEDS: Divalproex Sodium 250 MG TABLET.DR 750 MG PO (07:53)
[2023-02-10] MEDS: Docusate Sodium 100 MG CAPSULE PO (07:53)
[2023-02-10] MEDS: levETIRAcetam 500 MG TABLET 1500 MG PO (07:53)
[2023-02-10] MEDS: Acetaminophen 325 MG TABLET 650 MG PO (07:53)
[2023-02-10] MEDS: Cholecalciferol (Vitamin D3) 25 MCG TABLET 100 MCG PO (07:54)
[2023-02-10] MEDS: risperiDONE 0.5 MG TABLET PO (07:54)
[2023-02-10] MEDS: clonazePAM 1 MG TABLET PO (07:54)
[2023-02-10] MEDS: Multivitamin TABLET 1 TAB PO (07:55)
[2023-02-10] MEDS: 0.9 % Sodium Chloride Flush 3 ML SYRINGE IVFLUSH (07:59)
--- NOTE | 2023-02-10 10:27 | MHC.CM.PN ---
pt lives in alf where they provide 24 hr supervision including meds pt is dcd today alf to transport
--- NOTE | 2023-02-10 11:47 | MHC.CM.PN ---
pt returning to senior living today sister notified
--- NOTE | 2023-02-17 16:59 | PM.DS ---
DS: Providers Provider Date of Service: 02/10/23 Date of admission: 02/08/23 21:30 Primary care physician: Unknown Physician Consults: 02/08/23 21:35 Consult to Neurology Routine Consulting Provider: [facility] Reason for consultation: multiple breakthrough seizures Has provider been notified: No DS: Diagnosis Discharge Diagnosis (1) Intractable epilepsy: Status: Inactive DS: Summary Hospital Course Hospital Course: He presented with breakthrough seizure and found to have supratherapeutic depakote level so Depakote level was reduced to 750 bid. He was seen by Neurologist with recomendation to Increase Fycompa to 2mg bid for 1 wk then to 6mg/ day. Continue current dose of Depakote and Keppra. He did not have any further seizure and was discharged baseed on Neuro recommendation. Time Spent with Patient Time attestation: Total time managing care of this patient today ____ minutes. Discharge coordination time: Greater than 30 minutes Quality: Safe Use of Opioids Does Pt have an Active Cancer Diagnosis on the Problem List?: No Quality: Stroke Does the patient have a stroke diagnosis?: No Physical Exam Vital Signs: Vital Signs: Last Vital Signs Temp 98.3 F 02/10/23 07:45 Pulse 70 02/10/23 07:45 Resp 20 02/10/23 07:45 BP 124/79 02/10/23 07:45 Pulse Ox 99 02/10/23 07:45 O2 Del Method Room Air 02/10/23 07:45 BMI result Body Mass Index 25.6 Discharge Plan Discharge Anticipated Discharge Date/Time: 02/10/23 09:33 Patient Disposition: Home, Self-Care Discharge Diagnosis: breakthrough seizure Referrals: Physician,Unknown J [Primary Care Provider] - 1 Week Discharge Medications: New Fycompa 6 mg tablet 6 mg PO BEDTIME 30 Days Qty: 30 0RF Rx Instructions: Start taking February 17, 2023 divalproex [Depakote] 250 mg tablet,delayed release (DR/EC) 750 mg PO BID Qty: 180 0RF Continued multivitamin Tablet 1 tab PO DAILY cetirizine [Zyrtec] 10 mg Tablet 10 mg PO DAILY PRN (Reason: post nasal drip) clonazepam 0.5 mg tablet 0.5 mg PO BID@1600,2000 docusate sodium [Colace] 100 mg Capsule 100 mg PO BID risperidone 0.5 mg tablet 0.5 mg PO BID diclofenac sodium 1 % Gel 1 g TOPICAL Q4H PRN (Reason: Pain (Scale Score 4-6)) cholecalciferol (vitamin D3) [Vitamin D3] 50 mcg (2,000 unit) Tablet 100 mcg PO DAILY omega 2-ien-tuz-fish oil [Fish Oil] 1,000 mg (120 mg-180 mg) Capsule 1 cap PO DAILY acetaminophen [Tylenol] 325 mg Tablet 650 mg PO Q6H PRN (Reason: Pain) loperamide [Imodium A-D] 2 mg Tablet 2 mg PO Q4H PRN (Reason: Loose Stool) Rx Instructions: administer after each loose stool until symptoms controlled; do not exceed 8 mg per 24 hrs Cepacol Sore Throat (maisha-men) 15-2.6 mg Lozenge 1 richard PO Q2H PRN (Reason: Sore Throat) clonidine HCl 0.1 mg Tablet 0.1 mg PO DAILY PRN (Reason: Agitation) dextromethorphan-guaifenesin 10-200 mg/5 mL Liquid 10 ml PO Q4H PRN (Reason: Congestion) Rx Instructions: or cough levetiracetam 500 mg Tablet 1,500 mg PO BID Qty: 180 0RF clonazepam 0.5 mg tablet 1 mg PO DAILY calcium carbonate [Tums Ultra] 400 mg calcium (1,000 mg) Tablet,Chewable 1,000 mg PO DAILY Discontinued divalproex 500 mg Tablet,Delayed Release (Dr/Ec) 1,000 mg PO BID Qty: 120 0RF Fycompa 2 mg tablet 2 mg PO BEDTIME 30 Days Qty: 30 0RF Discharge Orders: Discharge Order (Routine); Ordered 02/10/23 Ordered By: Gamal Nova Diet: Advance to usual diet Activity on Discharge: As tolerated Stand Alone Forms: Patient Portal Discharge page Care Plan Goals: Control of seizure Health Concerns: seizure desorder Plan of Treatment: Cycompa dose has been changed to 2 mg twice daily for 7 days, then 6 mg daily after that Depakote dose has been reduced to 750 twice daily Please surounder any unused pills to your pharmacy to have depote level checked in a week Assessment: as above Discharge Date/Time: 02/10/23 13:55
== END 2023-02-10 13:55 | disposition home or self-care (01) ==
LOC: HO.ED 20:15 → HO.EDOVER 21:41 → HO.S3 02-09 09:23
PROVIDERS: Admitting Provider Internal Medicine; Emergency Provider Internal Medicine; Visit Provider Internal Medicine
DX: G40.919 Epilepsy, unspecified, intractable, without status epilepticus (principal); F41.9 Anxiety disorder, unspecified; F79 Unspecified intellectual disabilities; Z79.899 Other long term (current) drug therapy
CPT/HCPCS: 36415; 80048; 80053; 80164; 80177; 80307; 81001; 83735; 85025; 96361; 96374; 99221; 99284; 99285; J1953

== ENCOUNTER → 2023-02-08 21:30 | Outpatient (BNV) | payer MEDICARE, MEDICAID, SELFPAY | PROVIDERS: Admitting Provider Internal Medicine; Emergency Provider Internal Medicine; Visit Provider Internal Medicine | DX: G40.919 Epilepsy, unspecified, intractable, without status epilepticus (principal) | CPT/HCPCS: 99222; 99232; 99239 ==

== ENCOUNTER 2023-02-16 11:03 | Outpatient (REF) | payer MEDICARE, MEDICAID, SELFPAY ==
[2023-02-16 14:26] LABS: Valproate 106.7 mcg/mL (50.0-100.0)
== END 2023-02-16 11:04 | disposition home or self-care (01) ==
LOC: HO.HMGCLDS 11:03
PROVIDERS: Visit Provider Internal Medicine
DX: G40.919 Epilepsy, unspecified, intractable, without status epilepticus (principal); Z79.899 Other long term (current) drug therapy
CPT/HCPCS: 36415; 80164

== ENCOUNTER 2023-02-17 21:25 | Emergency (ER) | payer MEDICARE, MEDICAID, SELFPAY ==
[2023-02-17 21:44] VITALS: BP 114/79; BP 114/82; PULSE 82; PULSE 83; RESP 18; TEMP 36.6; O2SAT 93; O2SAT 98; BMI 26.3
[2023-02-17 22:00] VITALS: BP 110/76; PULSE 81; RESP 20; TEMP 36.4; O2SAT 97
--- NOTE | 2023-02-17 23:23 | ED.DIZZY ---
HPI - Dizziness General Chief Complaint: Dizziness Stated Complaint: Dizziness Time Seen by Provider: 02/17/23 22:56 Source: patient Mode of arrival: EMS Limitations: no limitations History of Present Illness HPI Narrative: Patient with history of seizures , intellectual disability, anxiety was admitted on 02/08 discharge yesterday 02/17 for elevated Depakote level of 122 at the time of discharge it was 106 patient comes back as feeling dizzy peer after arrival patient noticed to have no significant disease in the eating well and relaxed no vomiting Related Data Home Medications Medication Instructions Recorded Confirmed cetirizine 10 mg tablet (Zyrtec) 10 mg PO DAILY PRN post nasal drip 12/31/21 02/08/23 cholecalciferol (vitamin D3) 50 100 mcg PO DAILY 12/31/21 02/08/23 mcg (2,000 unit) tablet (Vitamin D3) clonazepam 0.5 mg tablet 0.5 mg PO BID@1600,2000 12/31/21 02/08/23 diclofenac sodium 1 % topical gel 1 g topical Q4H PRN Pain (Scale 12/31/21 02/09/23 Score 4-6) docusate sodium 100 mg capsule 100 mg PO BID 12/31/21 02/08/23 (Colace) multivitamin 1 tab PO DAILY 12/31/21 02/08/23 omega 8-yyh-jly-fish oil 1,000 mg 1 cap PO DAILY 12/31/21 02/08/23 (120 mg-180 mg) capsule (Fish Oil) risperidone 0.5 mg tablet 0.5 mg PO BID 12/31/21 02/08/23 acetaminophen 325 mg tablet 650 mg PO Q6H PRN Pain 04/08/22 02/08/23 (Tylenol) loperamide 2 mg tablet (Imodium 2 mg PO Q4H PRN Loose Stool 04/08/22 02/08/23 A-D) benzocaine 15 mg-menthol 2.6 mg 1 richard PO Q2H PRN Sore Throat 06/12/22 02/08/23 lozenges (Cepacol Sore Throat (benzocaine-menthol)) clonidine HCl 0.1 mg tablet 0.1 mg PO DAILY PRN Agitation 06/12/22 02/08/23 dextromethorphan-guaifenesin 10 10 ml PO Q4H PRN Congestion 06/12/22 02/09/23 mg-200 mg/5 mL oral liquid clonazepam 0.5 mg tablet 1 mg PO DAILY 11/03/22 02/08/23 calcium carbonate 400 mg calcium 1,000 mg PO DAILY 02/09/23 02/09/23 (1,000 mg) chewable tablet (Tums Ultra) Previous Rx's Medication Instructions Recorded levetiracetam 500 mg tablet 1,500 mg PO BID #180 tabs 03/04/22 divalproex 250 mg tablet,delayed 750 mg PO BID #180 tabs 02/10/23 release (Depakote) perampanel 6 mg tablet (Fycompa) 6 mg PO BEDTIME 30 days #30 tabs 02/10/23 Allergies Allergy/AdvReac Type Severity Reaction Status Date / Time No Known Allergies Allergy Verified 02/08/23 20:09 [No Known Allergies*] Review of Systems Review of Systems: Yes all other systems are reviewed and are negative [facility] Past Medical History Medical History Anxiety disorder, unspecified Epileptic seizure History of SIADH Hyponatremia Intellectual disability Intractable epilepsy Intractable seizure disorder Seizure disorder Surgical History No pertinent past surgical history Family History Family History Other No family history of coronary artery disease Social History Social History Household Members: Other Household Members Other:: groop home Housing: House Housing Other:: intermediate Do you presently have visiting nurse or other home services: No Alcohol intake: never Patient Tobacco Use Status: Never used Tobacco e-Cigarette/Vaping Use: Never Used Advance Directives: Yes Advance Directives on File: Yes Advance Directives Date on File: 02/06/22 service: No Current occupational status: disabled Physical Exam Vital Signs: Vital Signs: Last Vital Signs Temp 97.5 F 02/17/23 22:00 Pulse 78 02/18/23 00:20 Resp 18 02/18/23 00:20 BP 117/87 02/18/23 00:20 Pulse Ox 95 02/18/23 00:20 O2 Del Method Room Air 02/17/23 22:00 BMI result Body Mass Index 26.3 Appearance: Alert. Oriented X2-3. No acute distress. Eyes: PERRLA, No Nystagmus ENT: Pharynx normal. Oral Mucosa moist Neck: Normal inspection. Neck supple. CVS: Normal heart rate and rhythm. Pulses normal. Respiratory: No respiratory distress. Equal air entry bilateral, no wheezing/rales/rhonchi Abdomen: Soft and nontender. Bowel sounds are present, Skin: Skin warm and dry. Normal skin color. Normal skin turgor. Extremities: No lower extremity edema. No calf tenderness Neuro: Oriented X 2-3. No motor deficit. No sensory deficit.No cerebellar signs , cranial nerves II-XII intact Medical Decision Making Medical Decision Making [facility] Narrative: Patient with Nonspecific dizziness stable labs will discharge patient back to his intermediate Lab Data [facility] Lab Attestation statement: I reviewed the patient's lab results. 02/17/23 23:22 02/17/23 23:22 Labs: Lab Results 02/17/23 02/17/23 Range/Units 23:22 23:22 WBC 6.8 (4.8-10.8) X10*3/uL RBC 3.99 L (4.60-5.80) X10*6/uL Hgb 13.1 L (14.0-18.0) g/dl Hct 38.0 L (42.0-52.0) % MCV 95.2 (80.0-98.0) fL MCH 32.8 (27.0-33.0) pg MCHC 34.5 (31.0-36.0) g/dl RDW 13.3 (11.0-16.0) % Plt Count 184 (160-400) X10*3/uL MPV 10.1 (9.4-12.4) fL Immature Gran % (Auto) 0.3 (0.0-0.4) % Neut % (Auto) 55.8 (45-73) % Lymph % (Auto) 26.5 (20-40) % [place] % (Auto) 16.1 H (2-11) % Eos % (Auto) 1.0 (0-4) % Baso % (Auto) 0.3 (0-2) % Lymph # (Auto) 1.8 (1.2-4.9) X10*3/uL [place] # (Auto) 1.1 (0.1-1.2) X10*3/uL Eos # (Auto) 0.1 (0.0-0.4) X10*3/uL Baso # (Auto) 0.0 (0.0-0.2) X10*3/uL Abs Immat Gran (auto) 0.02 (0.00-0.03) X10*3/uL Absolute Neuts (auto) 3.8 (2.0-8.3) x10*3/uL Absolute Nucleated RBC 0.000 (0.0-0.012) X10*3/uL Nucleated RBC % (auto) 0.0 (0.0-0.2) /100WBC Sodium 136 (135-145) mmol/L Potassium 3.7 (3.3-5.1) mmol/L Chloride 103 (96-108) mmol/L Carbon Dioxide 26 (22-29) mmol/L Anion Gap 11 L (12-20) BUN 9 (9-16) mg/dL Creatinine 0.74 (0.5-1.4) mg/dL Estim Creat Clear Calc 113.7 Estimated GFR > 60 Random Glucose 105 (60-115) mg/dL Calcium 9.5 D (8.4-10.2) mg/dL Total Bilirubin 0.3 (0.0-1.0) mg/dL AST 22 (5-37) U/L ALT 20 (0-40) U/L Alkaline Phosphatase 48 (39-117) U/L Total Protein 6.9 (6.5-8.0) g/dL Albumin 4.0 (3.5-5.0) g/dL Discharge Plan Discharge Clinical Impression: Dizziness Patient Disposition: Home, Self-Care Instructions: Dizziness (ED) Additional Instructions: Continue your medications and follow-up with your PCP/neurology Prescriptions: No Action multivitamin Tablet 1 tab PO DAILY cetirizine [Zyrtec] 10 mg Tablet 10 mg PO DAILY PRN (Reason: post nasal drip) clonazepam 0.5 mg tablet 0.5 mg PO BID@1600,2000 docusate sodium [Colace] 100 mg Capsule 100 mg PO BID risperidone 0.5 mg tablet 0.5 mg PO BID diclofenac sodium 1 % Gel 1 g TOPICAL Q4H PRN (Reason: Pain (Scale Score 4-6)) cholecalciferol (vitamin D3) [Vitamin D3] 50 mcg (2,000 unit) Tablet 100 mcg PO DAILY omega 6-pur-lxz-fish oil [Fish Oil] 1,000 mg (120 mg-180 mg) Capsule 1 cap PO DAILY acetaminophen [Tylenol] 325 mg Tablet 650 mg PO Q6H PRN (Reason: Pain) loperamide [Imodium A-D] 2 mg Tablet 2 mg PO Q4H PRN (Reason: Loose Stool) Rx Instructions: administer after each loose stool until symptoms controlled; do not exceed 8 mg per 24 hrs Cepacol Sore Throat (maisha-men) 15-2.6 mg Lozenge 1 richard PO Q2H PRN (Reason: Sore Throat) clonidine HCl 0.1 mg Tablet 0.1 mg PO DAILY PRN (Reason: Agitation) dextromethorphan-guaifenesin 10-200 mg/5 mL Liquid 10 ml PO Q4H PRN (Reason: Congestion) Rx Instructions: or cough levetiracetam 500 mg Tablet 1,500 mg PO BID Qty: 180 0RF clonazepam 0.5 mg tablet 1 mg PO DAILY calcium carbonate [Tums Ultra] 400 mg calcium (1,000 mg) Tablet,Chewable 1,000 mg PO DAILY Fycompa 6 mg tablet 6 mg PO BEDTIME 30 Days Qty: 30 0RF Rx Instructions: Start taking February 17, 2023 divalproex [Depakote] 250 mg tablet,delayed release (DR/EC) 750 mg PO BID Qty: 180 0RF Interventions: ED Discharge Assessment Last Done: 02/18/23 01:00 Discharge Date/Time: 02/18/23 01:06
[2023-02-17 23:55] LABS: MANUAL DIFF FLAG NO
[2023-02-17 23:56] LABS: Basophils Percent Auto 0.3 % (0-2); Eosinophils Absolute Auto 0.1 X10*3/uL (0.0-0.4); Hemoglobin 13.1 g/dl (14.0-18.0); Imm Gran Abs Auto 0.02 X10*3/uL (0.00-0.03); Imm Gran Pct Auto 0.3 % (0.0-0.4); Lymphocytes Absolute Auto 1.8 X10*3/uL (1.2-4.9); Lymphocytes Percent Auto 26.5 % (20-40); Mean Corpuscular HGB Conc 34.5 g/dl (31.0-36.0); Mean Corpuscular Hemoglobin 32.8 pg (27.0-33.0); Mean Corpuscular Volume 95.2 fL (80.0-98.0); Mean Platelet Volume 10.1 fL (9.4-12.4); Monocytes Absolute Auto 1.1 X10*3/uL (0.1-1.2); Monocytes Percent Auto 16.1 % (2-11); Neutrophils Absolute Auto 3.8 x10*3/uL (2.0-8.3); Neutrophils Percent Auto 55.8 % (45-73); Platelet Count 184 X10*3/uL (160-400); Red Blood Count 3.99 X10*6/uL (4.60-5.80); Red Cell Distribution Width 13.3 % (11.0-16.0); White Blood Count 6.8 X10*3/uL (4.8-10.8)
[2023-02-18 00:06] LABS: Alanine Aminotransferase 20 U/L (0-40); Alkaline Phosphatase 48 U/L (39-117); Anion Gap 11 (12-20); Aspartate Amino Transferase 22 U/L (5-37); Bilirubin Total 0.3 mg/dL (0.0-1.0); Blood Urea Nitrogen 9 mg/dL (9-16); Calcium 9.5 mg/dL (8.4-10.2); Carbon Dioxide 26 mmol/L (22-29); Chloride 103 mmol/L (96-108); Creatinine Clr Calc Pharmacy 113.7; Estimated Glomerular Filt Rate > 60; Glucose Random 105 mg/dL (60-115); Potassium 3.7 mmol/L (3.3-5.1); Sodium 136 mmol/L (135-145); Total Protein 6.9 g/dL (6.5-8.0)
[2023-02-18 00:20] VITALS: BP 117/87; PULSE 78; RESP 18; O2SAT 95
== END 2023-02-18 01:06 | disposition home or self-care (01) ==
PROVIDERS: Emergency Provider Internal Medicine
DX: R42 Dizziness and giddiness (principal); F41.1 Generalized anxiety disorder; F43.0 Acute stress reaction; Z79.899 Other long term (current) drug therapy
CPT/HCPCS: 36415; 80053; 85025; 99283

== ENCOUNTER 2023-02-18 10:27 | Emergency (ER) | payer MEDICARE, MEDICAID, SELFPAY ==
[2023-02-18 10:31] VITALS: PULSE 98
[2023-02-18 10:36] VITALS: BP 120/84; PULSE 88; RESP 19; TEMP 36.6; O2SAT 98; BMI 26.5
[2023-02-18] MEDS: clonazePAM 1 MG TABLET PO (10:42)
[2023-02-18] MEDS: Docusate Sodium 100 MG CAPSULE PO (10:42)
[2023-02-18] MEDS: risperiDONE 0.5 MG TABLET PO (10:42)
[2023-02-18] MEDS: levETIRAcetam 1,000 MG TABLET 1500 MG PO (10:42)
--- NOTE | 2023-02-18 10:59 | ED_ITS ---
HPI - General Adult General Chief complaint: Psychiatric Symptoms Stated complaint: REFUSING MEDICATION,THREATENING BEHAVIOR PER EMS Time Seen by Provider: 02/18/23 10:31 Source: patient and EMS Mode of arrival: EMS Limitations: no limitations History of Present Illness HPI narrative: 47-year-old male with developmental delay presents with refusing to take medications. Also had some threatening statements about his roommate. Patient denies any suicidal homicidal ideation. He basically tells me that he lives with 5 other gentleman who or annoy him all the time and he has made some statements that he does not intend to carry out. Patient has been refusing bed take his medications but is willing to do so this morning. Patient offers no acute other complaints. Patient denies any drug or alcohol. Denies any acute medical issues. Related Data Home Medications Medication Instructions Recorded Confirmed cetirizine 10 mg tablet (Zyrtec) 10 mg PO DAILY PRN post nasal drip 12/31/21 02/08/23 cholecalciferol (vitamin D3) 50 100 mcg PO DAILY 12/31/21 02/08/23 mcg (2,000 unit) tablet (Vitamin D3) clonazepam 0.5 mg tablet 0.5 mg PO BID@1600,2000 12/31/21 02/08/23 diclofenac sodium 1 % topical gel 1 g topical Q4H PRN Pain (Scale 12/31/21 02/09/23 Score 4-6) docusate sodium 100 mg capsule 100 mg PO BID 12/31/21 02/08/23 (Colace) multivitamin 1 tab PO DAILY 12/31/21 02/08/23 omega 6-nzj-cyn-fish oil 1,000 mg 1 cap PO DAILY 12/31/21 02/08/23 (120 mg-180 mg) capsule (Fish Oil) risperidone 0.5 mg tablet 0.5 mg PO BID 12/31/21 02/08/23 acetaminophen 325 mg tablet 650 mg PO Q6H PRN Pain 04/08/22 02/08/23 (Tylenol) loperamide 2 mg tablet (Imodium 2 mg PO Q4H PRN Loose Stool 04/08/22 02/08/23 A-D) benzocaine 15 mg-menthol 2.6 mg 1 richard PO Q2H PRN Sore Throat 06/12/22 02/08/23 lozenges (Cepacol Sore Throat (benzocaine-menthol)) clonidine HCl 0.1 mg tablet 0.1 mg PO DAILY PRN Agitation 06/12/22 02/08/23 dextromethorphan-guaifenesin 10 10 ml PO Q4H PRN Congestion 06/12/22 02/09/23 mg-200 mg/5 mL oral liquid clonazepam 0.5 mg tablet 1 mg PO DAILY 11/03/22 02/08/23 calcium carbonate 400 mg calcium 1,000 mg PO DAILY 02/09/23 02/09/23 (1,000 mg) chewable tablet (Tums Ultra) Previous Rx's Medication Instructions Recorded levetiracetam 500 mg tablet 1,500 mg PO BID #180 tabs 03/04/22 divalproex 250 mg tablet,delayed 750 mg PO BID #180 tabs 02/10/23 release (Depakote) perampanel 6 mg tablet (Fycompa) 6 mg PO BEDTIME 30 days #30 tabs 02/10/23 Allergies Allergy/AdvReac Type Severity Reaction Status Date / Time No Known Allergies Allergy Verified 02/08/23 20:09 [No Known Allergies*] Review of Systems Review of Systems: CONSTITUTIONAL: Denies weight loss, fever and chills. HEENT: Denies changes in vision and hearing. RESPIRATORY: Denies SOB and cough. CV: Denies palpitations no CP. GI: Denies abdominal pain, nausea, vomiting and diarrhea. : Denies dysuria and urinary frequency. MSK: Denies myalgia and joint pain. SKIN: Denies rash and pruritus. NEUROLOGICAL: Denies headache and syncope. PSYCHIATRIC: Denies recent changes in mood. Denies anxiety and depression. All other ROS are negative unless in HPI PMFSH Past Medical History Medical History Anxiety disorder, unspecified Epileptic seizure History of SIADH Hyponatremia Intellectual disability Intractable epilepsy Intractable seizure disorder Seizure disorder Surgical History No pertinent past surgical history Family History Family History Other No family history of coronary artery disease Social History Social History Household Members: Other Household Members Other:: groop home Housing: House Housing Other:: long term Do you presently have visiting nurse or other home services: No Alcohol intake: never Patient Tobacco Use Status: Never used Tobacco e-Cigarette/Vaping Use: Never Used Advance Directives: Yes Advance Directives on File: Yes Advance Directives Date on File: 02/06/22 service: No Current occupational status: disabled Physical Exam ED Vital Signs: Vital Signs - 24 hr 02/18/23 10:36 Temperature 98 F Pulse Rate 88 Respiratory Rate 19 Blood Pressure 120/84 Pulse Oximetry 98 Oxygen Delivery Method Room Air BMI result Body Mass Index 26.5 GEN: Well developed, no acute distress, alert, oriented HEENT: Normocephalic, atraumatic, normal external ears, nose appears normal Eyes: Normal to appearance Neck: Supple, no lymphadenopathy Respiratory: Talks in complete sentences, no respiratory distress Extremities: No clubbing cyanosis or edema Neurologic: No focal neurologic deficits, cranial nerves 2-12 intact, gait normal Skin: No rash Course Course Course Narrative: Patient has been cooperative. Took his medications. nursing home will take him back home at this time. Medications Administered Discontinued Medications Generic Name Dose Route Start Last Admin Trade Name Freq PRN Reason Stop Dose Admin Clonazepam 1 mg 02/18/23 10:37 02/18/23 10:42 Clonazepam 1 Mg Tablet PO 02/18/23 10:38 1 mg ONCE ONE Administration Docusate Sodium 100 mg 02/18/23 10:35 02/18/23 10:42 Docusate Sodium 100 Mg Capsule PO 02/18/23 10:36 100 mg ONCE ONE Administration Levetiracetam 1,500 mg 02/18/23 10:35 02/18/23 10:42 Levetiracetam 1,000 Mg Tablet PO 02/18/23 10:36 1,500 mg ONCE ONE Administration Risperidone 0.5 mg 02/18/23 10:35 02/18/23 10:42 Risperidone 0.5 Mg Tablet PO 02/18/23 10:36 0.5 mg ONCE ONE Administration Medical Decision Making Medical Decision Making MDM Narrative: Patient presents with refusal to take medications and making threatening statements about his roommate. Patient denies any suicidal homicidal ideation. He is calm cooperative. I will see if he will take his medications if so, patient can be discharged back to his long term. Differential diagnosis includes developmental delay, agitation, mood disorder. Cyst. Independent Historian Clinical information obtained from an independent historian. History obtained from or confirmed by: EMS Prescription Management I considered prescription management with: Other (Daily medication) Discharge Plan Discharge Clinical Impression: At risk for medication noncompliance Patient Disposition: Home, Self-Care Instructions: Mood Disorders (ED) Additional Instructions: Please take your medications Prescriptions: No Action multivitamin Tablet 1 tab PO DAILY cetirizine [Zyrtec] 10 mg Tablet 10 mg PO DAILY PRN (Reason: post nasal drip) clonazepam 0.5 mg tablet 0.5 mg PO BID@1600,2000 docusate sodium [Colace] 100 mg Capsule 100 mg PO BID risperidone 0.5 mg tablet 0.5 mg PO BID diclofenac sodium 1 % Gel 1 g TOPICAL Q4H PRN (Reason: Pain (Scale Score 4-6)) cholecalciferol (vitamin D3) [Vitamin D3] 50 mcg (2,000 unit) Tablet 100 mcg PO DAILY omega 5-dnd-avd-fish oil [Fish Oil] 1,000 mg (120 mg-180 mg) Capsule 1 cap PO DAILY acetaminophen [Tylenol] 325 mg Tablet 650 mg PO Q6H PRN (Reason: Pain) loperamide [Imodium A-D] 2 mg Tablet 2 mg PO Q4H PRN (Reason: Loose Stool) Rx Instructions: administer after each loose stool until symptoms controlled; do not exceed 8 mg per 24 hrs Cepacol Sore Throat (maisha-men) 15-2.6 mg Lozenge 1 richard PO Q2H PRN (Reason: Sore Throat) clonidine HCl 0.1 mg Tablet 0.1 mg PO DAILY PRN (Reason: Agitation) dextromethorphan-guaifenesin 10-200 mg/5 mL Liquid 10 ml PO Q4H PRN (Reason: Congestion) Rx Instructions: or cough levetiracetam 500 mg Tablet 1,500 mg PO BID Qty: 180 0RF clonazepam 0.5 mg tablet 1 mg PO DAILY calcium carbonate [Tums Ultra] 400 mg calcium (1,000 mg) Tablet,Chewable 1,000 mg PO DAILY Fycompa 6 mg tablet 6 mg PO BEDTIME 30 Days Qty: 30 0RF Rx Instructions: Start taking February 17, 2023 divalproex [Depakote] 250 mg tablet,delayed release (DR/EC) 750 mg PO BID Qty: 180 0RF Referrals: Morgan Rutherford MD [Primary Care Provider] - (As needed)
== END 2023-02-18 11:24 | disposition home or self-care (01) ==
PROVIDERS: Emergency Provider Emergency Medicine; PCP Family Medicine
DX: F91.8 Other conduct disorders (principal); Z91.148 Patient's other noncompliance with medication regimen for other reason; F41.9 Anxiety disorder, unspecified; E22.2 Syndrome of inappropriate secretion of antidiuretic hormone; G40.909 Epilepsy, unspecified, not intractable, without status epilepticus; Z72.89 Other problems related to lifestyle; Z59.2 Discord with neighbors, lodgers and landlord
CPT/HCPCS: 99283

== ENCOUNTER 2023-03-04 20:57 | Emergency (ER) | payer MEDICARE, MEDICAID, SELFPAY ==
--- NOTE | 2023-03-04 | ECG_ITS ---
Test Reason : DIZZINESS Blood Pressure : / mmHG Vent. Rate : 072 BPM Atrial Rate : 072 BPM P-R Int : 126 ms QRS Dur : 082 ms QT Int : 354 ms P-R-T Axes : 019 011 053 degrees QTc Int : 387 ms Normal sinus rhythm Normal ECG When compared with ECG of 03-NOV-2022 17:16, No significant change was found Referred By: Generic ED Physician Electronically Signed By:KIM MEHTA
[2023-03-04 21:00] VITALS: BP 220/160; PULSE 75; O2SAT 99
[2023-03-04 21:06] VITALS: BP 158/107; PULSE 80; RESP 18; TEMP 36.8; O2SAT 100; BMI 34.3
--- NOTE | 2023-03-04 23:06 | ED.DIZZY ---
HPI - Dizziness General Chief Complaint: Dizziness Stated Complaint: DIZZINESS BLURRY VISION MINOR CP Time Seen by Provider: 03/04/23 23:06 Source: patient Mode of arrival: ambulatory Limitations: no limitations History of Present Illness HPI Narrative: Patient with intellectual disability seizure disorder on Depakote, Keppra and Fycompa been here multiple times for dizziness which is nonspecific , blurred vision and had difficulty in walking, no lightheadedness no syncope no chest pain Related Data Home Medications Medication Instructions Recorded Confirmed cetirizine 10 mg tablet (Zyrtec) 10 mg PO DAILY PRN post nasal drip 12/31/21 02/08/23 cholecalciferol (vitamin D3) 50 100 mcg PO DAILY 12/31/21 02/08/23 mcg (2,000 unit) tablet (Vitamin D3) clonazepam 0.5 mg tablet 0.5 mg PO BID@1600,2000 12/31/21 02/08/23 diclofenac sodium 1 % topical gel 1 g topical Q4H PRN Pain (Scale 12/31/21 02/09/23 Score 4-6) docusate sodium 100 mg capsule 100 mg PO BID 12/31/21 02/08/23 (Colace) multivitamin 1 tab PO DAILY 12/31/21 02/08/23 omega 5-tdx-wro-fish oil 1,000 mg 1 cap PO DAILY 12/31/21 02/08/23 (120 mg-180 mg) capsule (Fish Oil) risperidone 0.5 mg tablet 0.5 mg PO BID 12/31/21 02/08/23 acetaminophen 325 mg tablet 650 mg PO Q6H PRN Pain 04/08/22 02/08/23 (Tylenol) loperamide 2 mg tablet (Imodium 2 mg PO Q4H PRN Loose Stool 04/08/22 02/08/23 A-D) benzocaine 15 mg-menthol 2.6 mg 1 richard PO Q2H PRN Sore Throat 06/12/22 02/08/23 lozenges (Cepacol Sore Throat (benzocaine-menthol)) clonidine HCl 0.1 mg tablet 0.1 mg PO DAILY PRN Agitation 06/12/22 02/08/23 dextromethorphan-guaifenesin 10 10 ml PO Q4H PRN Congestion 12/09/22 08/08/23 mg-200 mg/5 mL oral liquid clonazepam 0.5 mg tablet 1 mg PO DAILY 11/03/22 02/08/23 calcium carbonate 400 mg calcium 1,000 mg PO DAILY 02/09/23 02/09/23 (1,000 mg) chewable tablet (Tums Ultra) Previous Rx's Medication Instructions Recorded levetiracetam 500 mg tablet 1,500 mg PO BID #180 tabs 03/04/22 divalproex 250 mg tablet,delayed 750 mg PO BID #180 tabs 02/10/23 release (Depakote) perampanel 6 mg tablet (Fycompa) 6 mg PO BEDTIME 30 days #30 tabs 02/10/23 Allergies Allergy/AdvReac Type Severity Reaction Status Date / Time No Known Allergies Allergy Verified 03/04/23 21:06 [No Known Allergies*] Review of Systems Review of Systems: Yes all other systems are reviewed and are negative PMFSH Past Medical History Medical History Anxiety disorder, unspecified Epileptic seizure History of SIADH Hyponatremia Intellectual disability Intractable epilepsy Intractable seizure disorder Seizure disorder Surgical History No pertinent past surgical history Family History Family History Other No family history of coronary artery disease Social History Social History Household Members: Other Household Members Other:: groop home Housing: House Housing Other:: [facility] Do you presently have visiting nurse or other home services: No Alcohol intake: never Patient Tobacco Use Status: Never used Tobacco Smoked in Last 30 Days: No e-Cigarette/Vaping Use: Never Used Use of substances other than those prescribed or required for medical reasons: No Advance Directives: Yes Advance Directives on File: Yes Advance Directives Date on File: 02/06/22 service: No Current occupational status: disabled Physical Exam Vital Signs: Vital Signs: Last Vital Signs Temp 98.4 F 03/05/23 02:19 Pulse 86 03/05/23 02:19 Resp 17 03/05/23 02:19 BP 148/105 H 03/05/23 02:19 Pulse Ox 100 03/05/23 02:19 O2 Del Method Room Air 03/05/23 02:19 BMI result Body Mass Index 34.3 Appearance: Alert. Oriented X3. No acute distress. Eyes: PERRLA, No Nystagmus ENT: Pharynx normal. Oral Mucosa moist Neck: Normal inspection. Neck supple. CVS: Normal heart rate and rhythm. Pulses normal. Respiratory: No respiratory distress. Equal air entry bilateral, no wheezing/rales/rhonchi Abdomen: Soft and nontender. Bowel sounds are present, no mass palpable, no CVA tenderness Skin: Skin warm and dry. Normal skin color. Normal skin turgor. Extremities: No lower extremity edema. No calf tenderness Neuro: Oriented X 3. No motor deficit. No sensory deficit.No cerebellar signs , cranial nerves II-XII intact Medications Administered Discontinued Medications Generic Name Dose Route Start Last Admin Trade Name Freq PRN Reason Stop Dose Admin Acetaminophen 650 mg 03/05/23 02:21 03/05/23 02:26 Acetaminophen 325 Mg Tablet PO 03/05/23 02:22 650 mg ONCE ONE Administration Medical Decision Making Medical Decision Making [facility] Narrative: Patient nonspecific dizziness is slightly elevated Depakote level dosage was decreased to 750 mg twice daily will decrease further to 500 mg twice daily maybe that is the cause for patient's dizziness under labs were stable Differential Diagnosis Differential Diagnoses: The differential diagnosis associated with the presentation includes Elevated Depakote level/nonspecific dizziness/vertigo/hypertension/cardiac arrhythmia Lab Data [facility] Lab Attestation statement: I reviewed the patient's lab results. 03/04/23 23:32 03/04/23 23:32 Labs: Lab Results 03/04/23 03/04/23 03/04/23 Range/Units 23:32 23:32 23:32 WBC 6.3 (4.8-10.8) X10*3/uL RBC 4.21 L (4.60-5.80) X10*6/uL Hgb 13.7 L (14.0-18.0) g/dl Hct 39.8 L (42.0-52.0) % MCV 94.5 (80.0-98.0) fL MCH 32.5 (27.0-33.0) pg MCHC 34.4 (31.0-36.0) g/dl RDW 13.2 (11.0-16.0) % Plt Count 181 (160-400) X10*3/uL MPV 10.1 (9.4-12.4) fL Immature Gran % (Auto) 0.3 (0.0-0.4) % Neut % (Auto) 41.6 L (45-73) % Lymph % (Auto) 45.2 H (20-40) % [place] % (Auto) 11.7 H (2-11) % Eos % (Auto) 0.6 (0-4) % Baso % (Auto) 0.6 (0-2) % Lymph # (Auto) 2.9 (1.2-4.9) X10*3/uL [place] # (Auto) 0.7 (0.1-1.2) X10*3/uL Eos # (Auto) 0.0 (0.0-0.4) X10*3/uL Baso # (Auto) 0.0 (0.0-0.2) X10*3/uL Abs Immat Gran (auto) 0.02 (0.00-0.03) X10*3/uL Absolute Neuts (auto) 2.6 (2.0-8.3) x10*3/uL Absolute Nucleated RBC 0.000 (0.0-0.012) X10*3/uL Nucleated RBC % (auto) 0.0 (0.0-0.2) /100WBC Sodium 138 (135-145) mmol/L Potassium 3.7 (3.3-5.1) mmol/L Chloride 104 (96-108) mmol/L Carbon Dioxide 22 (22-29) mmol/L Anion Gap 16 (12-20) BUN 9 (9-16) mg/dL Creatinine 0.64 (0.5-1.4) mg/dL Estim Creat Clear Calc 127.4 Estimated GFR > 60 Random Glucose 96 (60-115) mg/dL Calcium 9.2 (8.4-10.2) mg/dL Total Bilirubin 0.1 (0.0-1.0) mg/dL AST 18 (5-37) U/L ALT 14 (0-40) U/L Alkaline Phosphatase 39 (39-117) U/L Total Protein 6.8 (6.5-8.0) g/dL Albumin 4.1 (3.5-5.0) g/dL Valproic Acid 112.9 H* (50.0-100.0) mcg/mL Discharge Plan Discharge Clinical Impression: Dizziness Patient Disposition: Home, Self-Care Instructions: Dizziness (ED) Additional Instructions: Depakote level was slightly elevated to 112 Decreased dose of Depakote to 500 mg twice daily Drink plenty of fluid Follow-up with neurologist Prescriptions: No Action multivitamin Tablet 1 tab PO DAILY cetirizine [Zyrtec] 10 mg Tablet 10 mg PO DAILY PRN (Reason: post nasal drip) clonazepam 0.5 mg tablet 0.5 mg PO BID@1600,2000 docusate sodium [Colace] 100 mg Capsule 100 mg PO BID risperidone 0.5 mg tablet 0.5 mg PO BID diclofenac sodium 1 % Gel 1 g TOPICAL Q4H PRN (Reason: Pain (Scale Score 4-6)) cholecalciferol (vitamin D3) [Vitamin D3] 50 mcg (2,000 unit) Tablet 100 mcg PO DAILY omega 8-hfk-ngo-fish oil [Fish Oil] 1,000 mg (120 mg-180 mg) Capsule 1 cap PO DAILY acetaminophen [Tylenol] 325 mg Tablet 650 mg PO Q6H PRN (Reason: Pain) loperamide [Imodium A-D] 2 mg Tablet 2 mg PO Q4H PRN (Reason: Loose Stool) Rx Instructions: administer after each loose stool until symptoms controlled; do not exceed 8 mg per 24 hrs Cepacol Sore Throat (maisha-men) 15-2.6 mg Lozenge 1 richard PO Q2H PRN (Reason: Sore Throat) clonidine HCl 0.1 mg Tablet 0.1 mg PO DAILY PRN (Reason: Agitation) dextromethorphan-guaifenesin 10-200 mg/5 mL Liquid 10 ml PO Q4H PRN (Reason: Congestion) Rx Instructions: or cough levetiracetam 500 mg Tablet 1,500 mg PO BID Qty: 180 0RF clonazepam 0.5 mg tablet 1 mg PO DAILY calcium carbonate [Tums Ultra] 400 mg calcium (1,000 mg) Tablet,Chewable 1,000 mg PO DAILY Fycompa 6 mg tablet 6 mg PO BEDTIME 30 Days Qty: 30 0RF Rx Instructions: Start taking February 17, 2023 divalproex [Depakote] 250 mg tablet,delayed release (DR/EC) 750 mg PO BID Qty: 180 0RF Interventions: ED Discharge Assessment Last Done: 03/05/23 03:09 Discharge Date/Time: 03/05/23 03:22
[2023-03-04 23:36] LABS: MANUAL DIFF FLAG NO
[2023-03-04 23:38] LABS: Basophils Percent Auto 0.6 % (0-2); Eosinophils Percent Auto 0.6 % (0-4); Hematocrit 39.8 % (42.0-52.0); Hemoglobin 13.7 g/dl (14.0-18.0); Imm Gran Abs Auto 0.02 X10*3/uL (0.00-0.03); Imm Gran Pct Auto 0.3 % (0.0-0.4); Lymphocytes Absolute Auto 2.9 X10*3/uL (1.2-4.9); Lymphocytes Percent Auto 45.2 % (20-40); Mean Corpuscular HGB Conc 34.4 g/dl (31.0-36.0); Mean Corpuscular Hemoglobin 32.5 pg (27.0-33.0); Mean Corpuscular Volume 94.5 fL (80.0-98.0); Mean Platelet Volume 10.1 fL (9.4-12.4); Monocytes Absolute Auto 0.7 X10*3/uL (0.1-1.2); Monocytes Percent Auto 11.7 % (2-11); Neutrophils Absolute Auto 2.6 x10*3/uL (2.0-8.3); Neutrophils Percent Auto 41.6 % (45-73); Platelet Count 181 X10*3/uL (160-400); Red Blood Count 4.21 X10*6/uL (4.60-5.80); Red Cell Distribution Width 13.2 % (11.0-16.0); White Blood Count 6.3 X10*3/uL (4.8-10.8)
[2023-03-04 23:56] LABS: Alanine Aminotransferase 14 U/L (0-40); Albumin Level 4.1 g/dL (3.5-5.0); Alkaline Phosphatase 39 U/L (39-117); Anion Gap 16 (12-20); Aspartate Amino Transferase 18 U/L (5-37); Bilirubin Total 0.1 mg/dL (0.0-1.0); Blood Urea Nitrogen 9 mg/dL (9-16); Calcium 9.2 mg/dL (8.4-10.2); Carbon Dioxide 22 mmol/L (22-29); Chloride 104 mmol/L (96-108); Creatinine Clr Calc Pharmacy 127.4; Estimated Glomerular Filt Rate > 60; Glucose Random 96 mg/dL (60-115); Potassium 3.7 mmol/L (3.3-5.1); Sodium 138 mmol/L (135-145); Total Protein 6.8 g/dL (6.5-8.0)
[2023-03-05] LABS: Valproate 112.9 mcg/mL (50.0-100.0)
--- NOTE | 2023-03-05 00:07 | PC.NURSE ---
Critical result report to LEODAN Magdaleno
[2023-03-05 02:19] VITALS: BP 148/105; PULSE 86; RESP 17; TEMP 36.9; O2SAT 100
--- NOTE | 2023-03-05 02:20 | PC.NURSE ---
[facility] notified of pending d/c voices understanding and states they will come get pt shortly.
[2023-03-05] MEDS: Acetaminophen 325 MG TABLET 650 MG PO (02:26)
== END 2023-03-05 03:22 | disposition home or self-care (01) ==
PROVIDERS: Emergency Provider Internal Medicine
DX: R42 Dizziness and giddiness (principal); G40.909 Epilepsy, unspecified, not intractable, without status epilepticus; Z79.899 Other long term (current) drug therapy
CPT/HCPCS: 36415; 80053; 80164; 85025; 93005; 99283; 99284

== ENCOUNTER 2023-03-05 18:04 | Emergency (ER) | payer MEDICARE, MEDICAID, SELFPAY ==
[2023-03-05 18:14] VITALS: BP 157/112; BP 160/100; PULSE 77; PULSE 81; RESP 18; TEMP 37; O2SAT 100; O2SAT 97; BMI 20.1
--- NOTE | 2023-03-05 18:26 | PC.NURSE ---
Pt from [facility]. c/o blurry vision x 1 week. was seen here yesterday for same complaint. believes it is from a recent medication change. Denies HOROWITZ/Chest pain/SOB. resting quietly in bed. No apparent distress.
--- NOTE | 2023-03-05 19:26 | ED_ITS ---
HPI - General Adult General Chief complaint: Eye Problems Stated complaint: blurry vision Time Seen by Provider: 03/05/23 19:11 Related Data Home Medications Medication Instructions Recorded Confirmed cetirizine 10 mg tablet (Zyrtec) 10 mg PO DAILY PRN post nasal drip 12/31/21 02/08/23 cholecalciferol (vitamin D3) 50 100 mcg PO DAILY 12/31/21 02/08/23 mcg (2,000 unit) tablet (Vitamin D3) clonazepam 0.5 mg tablet 0.5 mg PO BID@1600,2000 12/31/21 02/08/23 diclofenac sodium 1 % topical gel 1 g topical Q4H PRN Pain (Scale 12/31/21 02/09/23 Score 4-6) docusate sodium 100 mg capsule 100 mg PO BID 12/31/21 02/08/23 (Colace) multivitamin 1 tab PO DAILY 12/31/21 02/08/23 omega 7-ojt-fpq-fish oil 1,000 mg 1 cap PO DAILY 12/31/21 02/08/23 (120 mg-180 mg) capsule (Fish Oil) risperidone 0.5 mg tablet 0.5 mg PO BID 12/31/21 02/08/23 acetaminophen 325 mg tablet 650 mg PO Q6H PRN Pain 04/08/22 02/08/23 (Tylenol) loperamide 2 mg tablet (Imodium 2 mg PO Q4H PRN Loose Stool 04/08/22 02/08/23 A-D) benzocaine 15 mg-menthol 2.6 mg 1 richard PO Q2H PRN Sore Throat 06/12/22 02/08/23 lozenges (Cepacol Sore Throat (benzocaine-menthol)) clonidine HCl 0.1 mg tablet 0.1 mg PO DAILY PRN Agitation 06/12/22 02/08/23 dextromethorphan-guaifenesin 10 10 ml PO Q4H PRN Congestion 06/12/22 02/09/23 mg-200 mg/5 mL oral liquid clonazepam 0.5 mg tablet 1 mg PO DAILY 11/03/22 02/08/23 calcium carbonate 400 mg calcium 1,000 mg PO DAILY 02/09/23 02/09/23 (1,000 mg) chewable tablet (Tums Ultra) Previous Rx's Medication Instructions Recorded levetiracetam 500 mg tablet 1,500 mg PO BID #180 tabs 03/04/22 divalproex 250 mg tablet,delayed 750 mg PO BID #180 tabs 02/10/23 release (Depakote) perampanel 6 mg tablet (Fycompa) 6 mg PO BEDTIME 30 days #30 tabs 02/10/23 Allergies Allergy/AdvReac Type Severity Reaction Status Date / Time No Known Allergies Allergy Verified 03/04/23 21:06 [No Known Allergies*] Review of Systems Review of Systems: CONSTITUTIONAL: Denies weight loss, fever and chills. HEENT: + changes in vision - hearing. RESPIRATORY: Denies SOB and cough. CV: Denies palpitations no CP. GI: Denies abdominal pain, nausea, vomiting and diarrhea. : Denies dysuria and urinary frequency. MSK: Denies myalgia and joint pain. SKIN: Denies rash and pruritus. NEUROLOGICAL: Denies headache and syncope. PSYCHIATRIC: Denies recent changes in mood. Denies anxiety and depression. All other ROS are negative unless in HPI PMFSH Past Medical History Medical History Anxiety disorder, unspecified Epileptic seizure History of SIADH Hyponatremia Intellectual disability Intractable epilepsy Intractable seizure disorder Seizure disorder Surgical History No pertinent past surgical history Family History Family History Other No family history of coronary artery disease Social History Social History Household Members: Other Household Members Other:: [facility] home Housing: House Housing Other:: [facility] Do you presently have visiting nurse or other home services: No Alcohol intake: never Patient Tobacco Use Status: Never used Tobacco e-Cigarette/Vaping Use: Never Used Advance Directives: Yes Advance Directives on File: Yes Advance Directives Date on File: 02/06/22 service: No Current occupational status: disabled Physical Exam ED Vital Signs: Vital Signs - 24 hr 03/05/23 18:14 Temperature 98.6 F Pulse Rate 81 Respiratory Rate 18 Blood Pressure 157/112 H Pulse Oximetry 100 Oxygen Delivery Method Room Air BMI result Body Mass Index 20.1 GEN: Well developed, no acute distress, alert, oriented HEENT: Normocephalic, atraumatic, normal external ears, nose appears normal Eyes: Dysconjugate gaze Neck: Supple, no lymphadenopathy Respiratory: Talks in complete sentences, no respiratory distress Extremities: No clubbing cyanosis or edema Neurologic: No focal neurologic deficits, cranial nerves 2-12 intact, gait normal Skin: No rash Course Course Course Narrative: I was unable to get a hold of the patient's neurologist. At this point, I do believe an appropriate alternative dosing regimen at this time would be to reduce the Fycompa to 4 mg at night and slightly increase the Depakote to 750 mg at 9 500 the day. Father is in agreement. Medical Decision Making Medical Decision Making MDM Narrative: Patient presents with what may be consistent with a medication reaction. Patient has had a recent increase in 1 of his seizure medications which has caused blurred vision. Prior to that increased, he has had no complaints. Exam is benign with the exception of a stable dysconjugate gaze. Will attempt to contact his neurologist. If not, I will make some medication changes which incl ude reduction of his Fycompa to 4 mg. I will increase his Depakote to 500 mg in the morning and 750 mg at night. Differential Diagnosis Differential Diagnoses: The differential diagnosis associated with the presentation includes (See above) Independent Historian Clinical information obtained from an independent historian. History obtained from or confirmed by: Parent Discharge Plan Discharge Clinical Impression: Dizziness, Blurred vision Patient Disposition: Home, Self-Care Instructions: Blurred Vision (ED) Additional Instructions: Medications adjustments: 1) Depakote 500 mg in the morning and 750 mg at night 2) Fycompa 4 mg at night. Prescriptions: No Action multivitamin Tablet 1 tab PO DAILY cetirizine [Zyrtec] 10 mg Tablet 10 mg PO DAILY PRN (Reason: post nasal drip) clonazepam 0.5 mg tablet 0.5 mg PO BID@1600,2000 docusate sodium [Colace] 100 mg Capsule 100 mg PO BID risperidone 0.5 mg tablet 0.5 mg PO BID diclofenac sodium 1 % Gel 1 g TOPICAL Q4H PRN (Reason: Pain (Scale Score 4-6)) cholecalciferol (vitamin D3) [Vitamin D3] 50 mcg (2,000 unit) Tablet 100 mcg PO DAILY omega 4-kwj-mrq-fish oil [Fish Oil] 1,000 mg (120 mg-180 mg) Capsule 1 cap PO DAILY acetaminophen [Tylenol] 325 mg Tablet 650 mg PO Q6H PRN (Reason: Pain) loperamide [Imodium A-D] 2 mg Tablet 2 mg PO Q4H PRN (Reason: Loose Stool) Rx Instructions: administer after each loose stool until symptoms controlled; do not exceed 8 mg per 24 hrs Cepacol Sore Throat (maisha-men) 15-2.6 mg Lozenge 1 richard PO Q2H PRN (Reason: Sore Throat) clonidine HCl 0.1 mg Tablet 0.1 mg PO DAILY PRN (Reason: Agitation) dextromethorphan-guaifenesin 10-200 mg/5 mL Liquid 10 ml PO Q4H PRN (Reason: Congestion) Rx Instructions: or cough levetiracetam 500 mg Tablet 1,500 mg PO BID Qty: 180 0RF clonazepam 0.5 mg tablet 1 mg PO DAILY calcium carbonate [Tums Ultra] 400 mg calcium (1,000 mg) Tablet,Chewable 1,000 mg PO DAILY Fycompa 6 mg tablet 6 mg PO BEDTIME 30 Days Qty: 30 0RF Rx Instructions: Start taking February 17, 2023 divalproex [Depakote] 250 mg tablet,delayed release (DR/EC) 750 mg PO BID Qty: 180 0RF Referrals: Eric Holland MD [Physician] -
[2023-03-05] MEDS: Divalproex Sodium 250 MG TABLET.DR 750 MG PO (20:16)
[2023-03-05] MEDS: levETIRAcetam 1,000 MG TABLET 1500 MG PO (20:16)
[2023-03-05] MEDS: clonazePAM 0.5 MG TABLET PO (20:16)
[2023-03-05] MEDS: risperiDONE 0.5 MG TABLET PO (20:16)
== END 2023-03-05 20:20 | disposition home or self-care (01) ==
PROVIDERS: Emergency Provider Emergency Medicine
DX: H53.8 Other visual disturbances (principal); R42 Dizziness and giddiness
CPT/HCPCS: 99283; 99284

== ENCOUNTER 2023-03-11 17:43 | Inpatient (IN) | payer MEDICARE, MEDICAID, SELFPAY ==
[2023-03-11 18:03] VITALS: BP 117/67; PULSE 100; RESP 16; TEMP 36.6; O2SAT 97; BMI 23.4
[2023-03-11 18:22] LABS: MANUAL DIFF FLAG NO
[2023-03-11 18:29] LABS: Basophils Percent Auto 0.5 % (0-2); Eosinophils Percent Auto 0.2 % (0-4); Hematocrit 37.1 % (42.0-52.0); Hemoglobin 12.9 g/dl (14.0-18.0); Imm Gran Abs Auto 0.01 X10*3/uL (0.00-0.03); Imm Gran Pct Auto 0.2 % (0.0-0.4); Lymphocytes Absolute Auto 1.6 X10*3/uL (1.2-4.9); Lymphocytes Percent Auto 28.6 % (20-40); Mean Corpuscular HGB Conc 34.8 g/dl (31.0-36.0); Mean Corpuscular Hemoglobin 32.9 pg (27.0-33.0); Mean Corpuscular Volume 94.6 fL (80.0-98.0); Mean Platelet Volume 10.3 fL (9.4-12.4); Monocytes Absolute Auto 0.7 X10*3/uL (0.1-1.2); Neutrophils Absolute Auto 3.1 x10*3/uL (2.0-8.3); Neutrophils Percent Auto 57.5 % (45-73); Platelet Count 206 X10*3/uL (160-400); Red Blood Count 3.92 X10*6/uL (4.60-5.80); Red Cell Distribution Width 13.3 % (11.0-16.0); White Blood Count 5.5 X10*3/uL (4.8-10.8)
[2023-03-11 18:42] LABS: Alanine Aminotransferase 22 U/L (0-40); Albumin Level 4.3 g/dL (3.5-5.0); Alkaline Phosphatase 41 U/L (39-117); Anion Gap 12 (12-20); Aspartate Amino Transferase 24 U/L (5-37); Bilirubin Total 0.3 mg/dL (0.0-1.0); Blood Urea Nitrogen 10 mg/dL (9-16); Calcium 9.6 mg/dL (8.4-10.2); Carbon Dioxide 25 mmol/L (22-29); Chloride 109 mmol/L (96-108); Creatinine Clr Calc Pharmacy 86.8; Estimated Glomerular Filt Rate > 60; Glucose Random 104 mg/dL (60-115); Potassium 3.8 mmol/L (3.3-5.1); Sodium 142 mmol/L (135-145); Total Protein 6.8 g/dL (6.5-8.0)
--- NOTE | 2023-03-11 19:00 | ED_ITS ---
HPI - Seizure General Chief Complaint: Seizure Stated Complaint: Sz at 1629 for 15sec, 2nd SZ at 1700 for 2min Time Seen by Provider: 03/11/23 18:06 Source: family (Father) Mode of arrival: EMS History of Present Illness HPI Narrative: This is a 47-year-old male who presents via EMS from a nursing home and the staff there reports 2 seizures today that they describe is a tonic clonic and the last at approximately 17:00 this evening. The bothers at bedside and supplies the remaining course of medication changes that have occurred over the past month. The father states that patient's most recent seizure medication changes have been a decrease in the Depakote and initiation of fycompa. Seizure History: Yes Related Data Home Medications Medication Instructions Recorded Confirmed cetirizine 10 mg tablet (Zyrtec) 10 mg PO DAILY PRN post nasal drip 12/31/21 02/08/23 cholecalciferol (vitamin D3) 50 100 mcg PO DAILY 12/31/21 02/08/23 mcg (2,000 unit) tablet (Vitamin D3) clonazepam 0.5 mg tablet 0.5 mg PO BID@1600,2000 12/31/21 02/08/23 diclofenac sodium 1 % topical gel 1 g topical Q4H PRN Pain (Scale 12/31/21 02/09/23 Score 4-6) docusate sodium 100 mg capsule 100 mg PO BID 12/31/21 02/08/23 (Colace) multivitamin 1 tab PO DAILY 12/31/21 02/08/23 omega 4-zjf-vwn-fish oil 1,000 mg 1 cap PO DAILY 12/31/21 02/08/23 (120 mg-180 mg) capsule (Fish Oil) risperidone 0.5 mg tablet 0.5 mg PO BID 12/31/21 02/08/23 acetaminophen 325 mg tablet 650 mg PO Q6H PRN Pain 04/08/22 02/08/23 (Tylenol) loperamide 2 mg tablet (Imodium 2 mg PO Q4H PRN Loose Stool 04/08/22 02/08/23 A-D) benzocaine 15 mg-menthol 2.6 mg 1 richard PO Q2H PRN Sore Throat 06/12/22 02/08/23 lozenges (Cepacol Sore Throat (benzocaine-menthol)) clonidine HCl 0.1 mg tablet 0.1 mg PO DAILY PRN Agitation 06/12/22 02/08/23 dextromethorphan-guaifenesin 10 10 ml PO Q4H PRN Congestion 06/12/22 02/09/23 mg-200 mg/5 mL oral liquid clonazepam 0.5 mg tablet 1 mg PO DAILY 11/03/22 02/08/23 calcium carbonate 400 mg calcium 1,000 mg PO DAILY 02/09/23 02/09/23 (1,000 mg) chewable tablet (Tums Ultra) Previous Rx's Medication Instructions Recorded levetiracetam 500 mg tablet 1,500 mg (3 x 500 mg) PO BID #180 03/04/22 tabs divalproex 250 mg tablet,delayed 750 mg (3 x 250 mg) PO BID #180 02/10/23 release (Depakote) tabs perampanel 6 mg tablet (Fycompa) 6 mg PO BEDTIME 30 days #30 tabs 02/10/23 perampanel 4 mg tablet (Fycompa) 4 mg PO BEDTIME 30 days #30 tabs 03/05/23 divalproex 250 mg tablet,delayed 750 mg (3 x 250 mg) PO .daily at 03/06/23 release hs #21 tabs divalproex 500 mg tablet,delayed 500 mg PO DAILY #7 tabs 03/06/23 release Allergies Allergy/AdvReac Type Severity Reaction Status Date / Time No Known Allergies Allergy Verified 03/04/23 21:06 [No Known Allergies*] Review of Systems 2 Review of Systems: Pertinent positives and negatives as stated in [facility] Past Medical History Source: nursing notes reviewed Medical History Intractable seizure disorder Intractable epilepsy Epileptic seizure Hyponatremia History of SIADH Seizure disorder Intellectual disability Anxiety disorder, unspecified Surgical History No pertinent past surgical history Family History Family History Other No family history of coronary artery disease Social History Social History Household Members: Other Household Members Other:: groop home Housing: House Housing Other:: nursing home Do you presently have visiting nurse or other home services: No Alcohol intake: never Patient Tobacco Use Status: Never used Tobacco e-Cigarette/Vaping Use: Never Used Advance Directives: Yes Advance Directives on File: Yes Advance Directives Date on File: 02/06/22 service: No Current occupational status: disabled Physical Exam 2 Vital Signs: Vital Signs: Last Vital Signs Temp 98 F 03/11/23 18:03 Pulse 100 03/11/23 18:03 Resp 16 03/11/23 18:03 BP 117/67 03/11/23 18:03 Pulse Ox 97 03/11/23 18:03 O2 Del Method Room Air 03/11/23 18:03 BMI result Body Mass Index 23.4 VITAL SIGNS: Reviewed. GENERAL: Well developed, well nourished, in no acute distress. HEAD: Normocephalic/atraumatic EYES: PERRLA, EOMI EARS: Ext canals without abnormality NOSE: Nares patent bilateral OROPHARYNX: no oral lesions noted, posterior pharynx clear NECK: Supple, no adenopathy LUNGS: Normal breath sounds. No adventitious sounds or accessory muscle use. SpO2<97> CARDIOVASCULAR: Regular rate and rhythm without noted murmurs ABDOMEN: Soft, non-tender, non-distended with bowel sounds. MUSCULOSKELETAL: No tenderness, deformities, or effusions noted on gross inspection. EXTREMITIES: No cyanosis, clubbing or edema. SKIN: Inspection of the skin reveals no rashes NEUROLOGIC: Alert and oriented x 2. Strength and sensation to light touch were grossly intact x 4. Medications Administered Discontinued Medications Generic Name Dose Route Start Last Admin Trade Name Mario PRN Reason Stop Dose Admin Lorazepam 2 mg 03/11/23 19:05 03/11/23 19:29 Lorazepam 2 Mg/Ml Vial IVPUSH 03/11/23 19:06 Not Given ONCE ONE Midazolam HCl 1 mg 03/11/23 19:23 03/11/23 19:27 Midazolam Hcl/Pf 2 Mg/2 Ml Vial IVPUSH 03/11/23 19:24 1 mg ONCE ONE Administration Midazolam HCl 1 mg 03/11/23 19:48 03/11/23 20:05 Midazolam Hcl/Pf 2 Mg/2 Ml Vial IVPUSH 03/11/23 19:49 1 mg ONCE ONE Administration Medical Decision Making Medical Decision Making MDM Narrative: 47-year-old male with history and clinical presentation of longstanding seizures the a become more frequent over the past 30 days there have been a few changes to patient's seizure medication. Will evaluate for infection, anemia, electrolyte abnormalities, medication levels. Of note, Keppra level was noted to be subtherapeutic 8/7 and supratherapeutic valproic acid levels that the father informs me has worked very well for the patient in the past. There is also the possibility of medication interactions affecting chronic medications that patient has been taking for number of years. 1809: Patient was noted to have a partial seizure and received 2 mg of Ativan IV push. 2146: Patient has continued to have intermittent seizures, he has received 2 different treatments with Versed 1 mg. I have reviewed all investigations and have noted that patient's valproic acid is subtherapeutic and he will be loaded at 20 mg/kg. The Keppra level is pending. Otherwise I have reviewed all investigations and hematologic indices are grossly stable without leukocytosis or left shift, there is a stable normocytic anemia no thrombocytopenia. Chemistry indices are grossly stable without electrolyte or liver enzyme derangements, there is no FEROZ. Urinalysis is negative for UTI or hematuria. His father remains at bedside and all results, findings, plans have been discussed with him. I have spoken with the inpatient hospitalist who accepts admission. Differential Diagnosis Differential Diagnoses: The differential diagnosis associated with the presentation includes Please see the discussion above Admission/Observation Consideration of admission/observation: Escalation of care including admission/observation considered Please see the discussion above Consult Healthcare Provider Management of the patient was discussed with: Hospitalist Please see the discussion above Lab Data [facility] Lab Attestation statement: I reviewed the patient's lab results. Please see the discussion above 03/11/23 18:17 03/11/23 18:17 Labs: Lab Results 03/11/23 03/11/23 03/11/23 Range/Units 18:17 20:03 20:40 WBC 5.5 (4.8-10.8) X10*3/uL RBC 3.92 L (4.60-5.80) X10*6/uL Hgb 12.9 L (14.0-18.0) g/dl Hct 37.1 L (42.0-52.0) % MCV 94.6 (80.0-98.0) fL MCH 32.9 (27.0-33.0) pg MCHC 34.8 (31.0-36.0) g/dl RDW 13.3 (11.0-16.0) % Plt Count 206 (160-400) X10*3/uL MPV 10.3 (9.4-12.4) fL Immature Gran % (Auto) 0.2 (0.0-0.4) % Neut % (Auto) 57.5 (45-73) % Lymph % (Auto) 28.6 (20-40) % [place] % (Auto) 13.0 H (2-11) % Eos % (Auto) 0.2 (0-4) % Baso % (Auto) 0.5 (0-2) % Lymph # (Auto) 1.6 (1.2-4.9) X10*3/uL [place] # (Auto) 0.7 (0.1-1.2) X10*3/uL Eos # (Auto) 0.0 (0.0-0.4) X10*3/uL Baso # (Auto) 0.0 (0.0-0.2) X10*3/uL Abs Immat Gran (auto) 0.01 (0.00-0.03) X10*3/uL Absolute Neuts (auto) 3.1 (2.0-8.3) x10*3/uL Absolute Nucleated RBC 0.000 (0.0-0.012) X10*3/uL Nucleated RBC % (auto) 0.0 (0.0-0.2) /100WBC Sodium 142 (135-145) mmol/L Potassium 3.8 (3.3-5.1) mmol/L Chloride 109 H (96-108) mmol/L Carbon Dioxide 25 (22-29) mmol/L Anion Gap 12 (12-20) BUN 10 (9-16) mg/dL Creatinine 0.76 (0.5-1.4) mg/dL Estim Creat Clear Calc 86.8 Estimated GFR > 60 Random Glucose 104 (60-115) mg/dL Calcium 9.6 (8.4-10.2) mg/dL Total Bilirubin 0.3 (0.0-1.0) mg/dL AST 24 (5-37) U/L ALT 22 (0-40) U/L Alkaline Phosphatase 41 (39-117) U/L Total Protein 6.8 (6.5-8.0) g/dL Albumin 4.3 (3.5-5.0) g/dL Urine Color Yellow Urine Appearance Clear Urine pH 7.5 (5.0-9.0) Ur Specific [place] 1.015 (1.005-1.025) Urine Protein Negative (Neg-Trace) mg/dL Urine Glucose (UA) Negative (Negative) mg/dL Urine Ketones Negative (Negative) mg/dL Urine Blood Negative (Negative) Urine Nitrite Negative (Negative) Ur Leukocyte Esterase Negative (Negative) Valproic Acid 46.6 L (50.0-100.0) mcg/mL External Record Review External record reviewed: Outpatient record, Prior outpatient labs and Prior outpatient radiology Chronic Conditions Patient?s care impacted by: Other Seizure disorder Critical Care Time Critical Care Time Critical Care Time: Yes Total Critical Care Time: 45 Attestation: I personally attest to this time spent taking care of the patient. Discharge Plan Discharge Clinical Impression: Seizure disorder, partial, intractable Patient Disposition: Admitted As Inpatient Prescriptions: No Action multivitamin Tablet 1 tab PO DAILY cetirizine [Zyrtec] 10 mg Tablet 10 mg PO DAILY PRN (Reason: post nasal drip) clonazepam 0.5 mg tablet 0.5 mg PO BID@1600,2000 docusate sodium [Colace] 100 mg Capsule 100 mg PO BID risperidone 0.5 mg tablet 0.5 mg PO BID diclofenac sodium 1 % Gel 1 g TOPICAL Q4H PRN (Reason: Pain (Scale Score 4-6)) cholecalciferol (vitamin D3) [Vitamin D3] 50 mcg (2,000 unit) Tablet 100 mcg PO DAILY omega 4-uno-nhs-fish oil [Fish Oil] 1,000 mg (120 mg-180 mg) Capsule 1 cap PO DAILY acetaminophen [Tylenol] 325 mg Tablet 650 mg PO Q6H PRN (Reason: Pain) loperamide [Imodium A-D] 2 mg Tablet 2 mg PO Q4H PRN (Reason: Loose Stool) Rx Instructions: administer after each loose stool until symptoms controlled; do not exceed 8 mg per 24 hrs Cepacol Sore Throat (maisha-men) 15-2.6 mg Lozenge 1 richard PO Q2H PRN (Reason: Sore Throat) clonidine HCl 0.1 mg Tablet 0.1 mg PO DAILY PRN (Reason: Agitation) dextromethorphan-guaifenesin 10-200 mg/5 mL Liquid 10 ml PO Q4H PRN (Reason: Congestion) Rx Instructions: or cough levetiracetam 500 mg Tablet 1,500 mg PO BID Qty: 180 0RF clonazepam 0.5 mg tablet 1 mg PO DAILY calcium carbonate [Tums Ultra] 400 mg calcium (1,000 mg) Tablet,Chewable 1,000 mg PO DAILY Fycompa 6 mg tablet 6 mg PO BEDTIME 30 Days Qty: 30 0RF Rx Instructions: Start taking February 17, 2023 divalproex [Depakote] 250 mg tablet,delayed release (DR/EC) 750 mg PO BID Qty: 180 0RF Fycompa 4 mg tablet 4 mg PO BEDTIME 30 Days Qty: 30 0RF divalproex 500 mg tablet,delayed release (DR/EC) 500 mg PO DAILY Qty: 7 0RF Rx Instructions: Please fill in blister pack. divalproex 250 mg tablet,delayed release (DR/EC) 750 mg PO .daily at hs Qty: 21 0RF Rx Instructions: Please fill in blister pack.
[2023-03-11] MEDS: Midazolam HCl/PF 2 MG/2 ML VIAL 1 MG IVPUSH ×2 (19:27→20:05)
[2023-03-11 20:24] LABS: Valproate 46.6 mcg/mL (50.0-100.0)
[2023-03-11 20:50] LABS: Appearance Urine Clear; Color Urine Yellow; Glucose Urine UA Negative (Negative); Leukocyte Esterase Urine Negative (Negative); Nitrite Urine Negative (Negative); PH 7.5 (5.0-9.0); Specific Gravity - Urine 1.015 (1.005-1.025); Urine Blood Negative (Negative); Urine Ketones Negative (Negative); Urine Protein Negative (Neg-Trace)
--- NOTE | 2023-03-11 22:10 | PHA.MEDREC ---
Pharmacy Consult ? Medication Reconciliation Pharmacy has completed the medication reconciliation. Patient's father brought medication list from [facility]. Victoria Garcia, BeckieD
--- NOTE | 2023-03-11 22:31 | HE.PHANOTE ---
Patient's father brought in 1 tablet of Fycompa 4 mg for tonight's. Medication was identified and verified by me. Medication was then handed to LEODAN Young to be administered to the patient. Patient's father will bring the rest of the bottle of Fycompa tomorrow.
[2023-03-11] MEDS: Enoxaparin Sodium 40 MG/0.4 ML SYRINGE SUBCUT (22:34)
--- NOTE | 2023-03-11 22:48 | P.HPHOSP_ITS ---
History of Present Illness Date of Service: 03/11/23 Chief Complaint: Multiple breakthrough seizures This is a 47-year-old male who is really well-known to us with history of intractable seizure disorder comes into the hospital today with more than 6 witnessed episodes of seizures at the halfway as well as in the ED. Father is at bedside, gives most of the history. Patient's father reports the ever since his divalproex dose was reduced from 1000 b.i.d. to 500 b.i.d. patient has been having more seizures. He has been compliant with Fycompa and has not missed any doses. Patient is awake, alert, oriented to self and place, he denies any chest pain, no shortness of breath, no abdominal pain nausea or vomiting, no diarrhea constipation, no urinary symptoms and no lower extremity edema. On arrival to the ED patient hemodynamically stable no significant abnormal vitals Labs unremarkable Valproic acid is 46.6 and Keppra level pending Patient being admitted for further evaluation by Neurology Review of Systems 2 Review of Systems: Yes all other systems are reviewed and are negative [facility] Medical History Intractable seizure disorder Intractable epilepsy Epileptic seizure Hyponatremia History of SIADH Seizure disorder Intellectual disability Anxiety disorder, unspecified Family History Other No family history of coronary artery disease Surgical History No pertinent past surgical history Social History Household Members: Other Household Members Other:: groop home Housing: House Housing Other:: halfway Do you presently have visiting nurse or other home services: No Alcohol intake: never Patient Tobacco Use Status: Never used Tobacco Smoked in Last 30 Days: No e-Cigarette/Vaping Use: Never Used Use of substances other than those prescribed or required for medical reasons: No Advance Directives: Yes Advance Directives on File: Yes Advance Directives Date on File: 02/06/22 Nutrition Risks: No Nutritional Risk service: No Current occupational status: disabled Meds Allergies Allergy/AdvReac Type Severity Reaction Status Date / Time No Known Allergies Allergy Verified 03/04/23 21:06 [No Known Allergies*] Active Medications: Current Medications Acetaminophen (Acetaminophen 325 Mg Tablet) 650 mg PO Q6H PRN PRN Reason: Pain, Mild (Pain Scale 1-3) Divalproex Sodium (Divalproex Sodium 500 Mg Tablet.Dr) 1,000 mg PO BID [facility] Docusate Sodium (Docusate Sodium 100 Mg Capsule) 100 mg PO DAILY PRN PRN Reason: Constipation Enoxaparin Sodium (Enoxaparin Sodium 40 Mg/0.4 Ml Syringe) 40 mg SUBCUT Q24H [facility] Last Admin: 03/11/23 22:34 Dose: 40 mg Valproic Acid 1,400 mg/ Sodium (Chloride) 114 mls @ 100 mls/hr IV ONCE ONE Stop: 03/11/23 22:53 Last Admin: 03/11/23 21:51 Dose: 100 mls/hr Ondansetron HCl (Ondansetron Hcl 4 Mg/2 Ml Vial) 4 mg IVPUSH Q8H PRN PRN Reason: Nausea and Vomiting Sodium Chloride (0.9 % Sodium Chloride Flush 3 Ml Syringe) 3 ml IVFLUSH QSHIFT [facility] Home Medications Medication Instructions Recorded Confirmed Last Taken Type cetirizine 10 mg tablet (Zyrtec) 10 mg PO DAILY PRN post nasal drip 12/31/21 03/11/23 06/12/22 History cholecalciferol (vitamin D3) 50 100 mcg PO DAILY 12/31/21 03/11/23 06/12/22 History mcg (2,000 unit) tablet (Vitamin D3) clonazepam 0.5 mg tablet 0.5 mg PO BID@1600,2000 12/31/21 03/11/23 06/12/22 History diclofenac sodium 1 % topical gel 1 g topical Q4H PRN Pain (Scale 12/31/21 03/11/23 06/12/22 History Score 4-6) docusate sodium 100 mg capsule 100 mg PO BID 12/31/21 03/11/23 06/12/22 History (Colace) multivitamin 1 tab PO DAILY 12/31/21 03/11/23 06/12/22 History omega 1-ier-inv-fish oil 1,000 mg 1 cap PO DAILY 12/31/21 03/11/23 06/12/22 History (120 mg-180 mg) capsule (Fish Oil) risperidone 0.5 mg tablet 0.5 mg PO BID 12/31/21 03/11/23 06/12/22 History acetaminophen 325 mg tablet 650 mg PO Q6H PRN Pain 04/08/22 03/11/23 Unknown History (Tylenol) loperamide 2 mg tablet (Imodium 2 mg PO Q4H PRN Loose Stool 04/08/22 03/11/23 Unknown History A-D) clonidine HCl 0.1 mg tablet 0.1 mg PO DAILY PRN Agitation 06/12/22 03/11/23 Unknown History dextromethorphan-guaifenesin 10 10 ml PO Q4H PRN Congestion 06/12/22 03/11/23 Unknown History mg-200 mg/5 mL oral liquid clonazepam 0.5 mg tablet 1 mg PO DAILY 11/03/22 03/11/23 Unknown History calcium carbonate 400 mg calcium 1,000 mg PO DAILY 02/09/23 03/11/23 Unknown History (1,000 mg) chewable tablet (Tums Ultra) divalproex 500 mg tablet,delayed 500 mg PO BID 03/11/23 03/11/23 Unknown History release perampanel 4 mg tablet (Fycompa) 4 mg PO BEDTIME 03/11/23 03/11/23 Unknown History Physical Exam 2 Vital Signs and Narrative: Vital Signs: Last Vital Signs Temp 98 F 03/11/23 18:03 Pulse 100 03/11/23 18:03 Resp 16 03/11/23 18:03 BP 117/67 03/11/23 18:03 Pulse Ox 97 03/11/23 18:03 O2 Del Method Room Air 03/11/23 18:03 BMI result Body Mass Index 23.4 Const: General: cooperative and no acute distress O rientation/consciousness: patient oriented x3 Eyes: General: appearance normal, both eyes and all related structures P upils: Equal, round and reactive pupils present Resp: Effort & Inspection: normal respiratory effort Auscultation: clear to auscultation bilaterally Cardio: Rate: regular rate Rhythm: regular rhythm GI: Palpation (GI): Soft to palpation Auscultation: normal bowel sounds Skin: General skin exam: no rashes or lesions noted Neuro: General: patient oriented x3 Cranial nerves: Yes Equal, round and reactive pupils present Cognition (Neuro): normal cognition Extrem: General: Yes normal to inspection and Yes no pedal edema Results Labs 03/11/23 18:17 03/11/23 18:17 Labs: Laboratory Results - last 24 hr 03/11/23 03/11/23 03/11/23 18:17 20:03 20:40 MCV 94.6 MCH 32.9 MCHC 34.8 RDW 13.3 Plt Count 206 MPV 10.3 Immature Gran % (Auto) 0.2 Neut % (Auto) 57.5 Lymph % (Auto) 28.6 [place] % (Auto) 13.0 H Eos % (Auto) 0.2 Baso % (Auto) 0.5 Lymph # (Auto) 1.6 [place] # (Auto) 0.7 Eos # (Auto) 0.0 Baso # (Auto) 0.0 Abs Immat Gran (auto) 0.01 Absolute Neuts (auto) 3.1 Absolute Nucleated RBC 0.000 Nucleated RBC % (auto) 0.0 Anion Gap 12 Estim Creat Clear Calc 86.8 Estimated GFR > 60 Random Glucose 104 Calcium 9.6 Total Bilirubin 0.3 AST 24 ALT 22 Alkaline Phosphatase 41 Total Protein 6.8 Albumin 4.3 Urine Color Yellow Urine Appearance Clear Urine pH 7.5 Ur Specific [place] 1.015 Urine Protein Negative Urine Glucose (UA) Negative Urine Ketones Negative Urine Blood Negative Urine Nitrite Negative Ur Leukocyte Esterase Negative Valproic Acid 46.6 L Assessment and Plan (1) Seizure disorder, partial, intractable: Status: Acute Plan 47-year-old male with history of epileptic seizure comes into the hospital with more sent 6 episodes of breakthrough seizures # intractable breakthrough seizures -not in status - possibly secondary to decreased dose of divalproex as his level is subtherapeutic - will start him back on 1000 b.i.d. - continue Keppra and Fycompa- which patient reports compliance - neurology consulted Will continue all his other medications as prescribed Time Spent With Patient Time: Total time managing care of this patient today ____ minutes. Quality Stroke Does the patient have a stroke diagnosis?: No VTE Prior VTE?: No VTE Risk Level:: Medical - moderate - high VTE Device Contraindication: Treatment Not Indicated VTE Drug Contraindication: N/A - Med Ordered
--- NOTE | 2023-03-11 22:49 | PHA.MEDREC ---
Pharmacy Consult ? Medication Reconciliation Pharmacy has completed the medication reconciliation. Patient came from [facility] with medicaiton list. Victoria Garcia, BeckieD
[2023-03-11 23:44] VITALS: BP 149/89; PULSE 80; RESP 17; TEMP 36.8; O2SAT 97
[2023-03-12] MEDS: 0.9 % Sodium Chloride Flush 3 ML SYRINGE IVFLUSH ×2 (00:04→07:55)
[2023-03-12 02:14] VITALS: PULSE 89; RESP 19
[2023-03-12 06:05] LABS: MANUAL DIFF FLAG NO
[2023-03-12 06:18] LABS: Basophils Percent Auto 0.4 % (0-2); Eosinophils Percent Auto 0.1 % (0-4); Hematocrit 39.9 % (42.0-52.0); Imm Gran Abs Auto 0.03 X10*3/uL (0.00-0.03); Imm Gran Pct Auto 0.4 % (0.0-0.4); Lymphocytes Absolute Auto 3.1 X10*3/uL (1.2-4.9); Lymphocytes Percent Auto 42.9 % (20-40); Mean Corpuscular HGB Conc 35.1 g/dl (31.0-36.0); Mean Corpuscular Hemoglobin 33.3 pg (27.0-33.0); Mean Corpuscular Volume 94.8 fL (80.0-98.0); Mean Platelet Volume 10.3 fL (9.4-12.4); Monocytes Absolute Auto 0.7 X10*3/uL (0.1-1.2); Monocytes Percent Auto 9.7 % (2-11); Neutrophils Absolute Auto 3.3 x10*3/uL (2.0-8.3); Neutrophils Percent Auto 46.5 % (45-73); Platelet Count 206 X10*3/uL (160-400); Red Blood Count 4.21 X10*6/uL (4.60-5.80); Red Cell Distribution Width 13.2 % (11.0-16.0); White Blood Count 7.1 X10*3/uL (4.8-10.8)
[2023-03-12 06:21] LABS: Anion Gap 13 (12-20); Blood Urea Nitrogen 8 mg/dL (9-16); Calcium 9.2 mg/dL (8.4-10.2); Carbon Dioxide 25 mmol/L (22-29); Chloride 105 mmol/L (96-108); Creatinine Clr Calc Pharmacy 91.6; Estimated Glomerular Filt Rate > 60; Glucose Random 88 mg/dL (60-115); Potassium 3.6 mmol/L (3.3-5.1); Sodium 139 mmol/L (135-145)
--- NOTE | 2023-03-12 07:18 | PC.NURSE ---
awake and eating breakfast. requesting PRN tylenol for pain with morning medications. pt resting comfortably in room with no signs of distress. awaiting bed assignment.
[2023-03-12 07:49] VITALS: BP 143/94; PULSE 98; RESP 18; TEMP 36.9; O2SAT 98
[2023-03-12] MEDS: Acetaminophen 325 MG TABLET 650 MG PO (07:51)
[2023-03-12] MEDS: Divalproex Sodium 500 MG TABLET.DR 1000 MG PO (07:51)
[2023-03-12] MEDS: risperiDONE 0.5 MG TABLET PO (07:51)
[2023-03-12] MEDS: levETIRAcetam 500 MG TABLET 1500 MG PO (07:51)
[2023-03-12] MEDS: Docusate Sodium 100 MG CAPSULE PO (07:51)
[2023-03-12] MEDS: Cholecalciferol (Vitamin D3) 25 MCG TABLET 100 MCG PO (07:52)
[2023-03-12] MEDS: clonazePAM 1 MG TABLET PO (07:52)
[2023-03-12] MEDS: Multivitamin TABLET 1 TAB PO (07:52)
--- NOTE | 2023-03-12 08:02 | PC.NURSE ---
patient medicated per the MAR, when asked how he takes his home meds patient responded watch and learn, you'll never meet a matthew like me . pt takes home medications altogether. listening to ipod in room at this time, trying to call his father. call giovanny within reach
--- NOTE | 2023-03-12 10:56 | PC.NURSE ---
father at bedside, pt conversing with him with no obvious signs of distress. call baltazar within reach
--- NOTE | 2023-03-12 11:25 | PM.NEUROCN ---
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 His epilepsy has been particularly intractable resistant to multiple meds. He used to see Dr. Rice at [facility] before he started following my office. Recently they have been some changes in his drug regimen. He was given 6 mg of Fycompa on top of his underlying dose of Depakote and levetiracetam, which resulted in side effects of sedation and weakness. Dose of Fycompa out was brought back to 4 mg. For some reason, and I am not sure why, his dose of Depakote was decreased from 1000 mg twice a day to 500 mg twice a day. These changes have resulted in multiple seizures and he was back in emergency room. When I saw him he was back to baseline playing cards with his father. Review of Systems Review of Systems: No recent cold or flu-like illness PMFSH Past Medical History Medical History Intractable seizure disorder Intractable epilepsy Epileptic seizure Hyponatremia History of SIADH Seizure disorder Intellectual disability Anxiety disorder, unspecified Family History Family History Other No family history of coronary artery disease Surgical History Surgical History No pertinent past surgical history Social History Social History Household Members: Other Household Members Other:: groop home Housing: House Housing Other:: [facility] Do you presently have visiting nurse or other home services: No Alcohol intake: never Patient Tobacco Use Status: Never used Tobacco Smoked in Last 30 Days: No e-Cigarette/Vaping Use: Never Used Use of substances other than those prescribed or required for medical reasons: No Advance Directives: Yes Advance Directives on File: Yes Advance Directives Date on File: 02/06/22 Nutrition Risks: No Nutritional Risk service: No Current occupational status: disabled Meds Allergies Allergy/AdvReac Type Severity Reaction Status Date / Time No Known Allergies Allergy Verified 03/04/23 21:06 [No Known Allergies*] Active Medications: Current Medications Acetaminophen (Acetaminophen 325 Mg Tablet) 650 mg PO Q6H PRN PRN Reason: Pain, Mild (Pain Scale 1-3) Last Admin: 03/12/23 07:51 Dose: 650 mg Calcium Carbonate (Calcium Carbonate 500 Mg Tablet) 1,000 mg PO DAILY [facility] Last Admin: 03/12/23 07:52 Dose: 1,000 mg Clonazepam (Clonazepam 0.5 Mg Tablet) 0.5 mg PO BID@1600,2000 [facility] Clonazepam (Clonazepam 1 Mg Tablet) 1 mg PO DAILY [facility] Last Admin: 03/12/23 07:52 Dose: 1 mg Clonidine HCl (Clonidine Hcl 0.1 Mg Tablet) 0.1 mg PO DAILY PRN; Protocol PRN Reason: Agitation Divalproex Sodium (Divalproex Sodium 500 Mg Tablet.Dr) 1,000 mg PO BID [facility] Last Admin: 03/12/23 07:51 Dose: 1,000 mg Docusate Sodium (Docusate Sodium 100 Mg Capsule) 100 mg PO DAILY PRN PRN Reason: Constipation Docusate Sodium (Docusate Sodium 100 Mg Capsule) 100 mg PO BID [facility] Last Admin: 03/12/23 07:51 Dose: 100 mg Enoxaparin Sodium (Enoxaparin Sodium 40 Mg/0.4 Ml Syringe) 40 mg SUBCUT Q24H [facility] Last Admin: 03/11/23 22:34 Dose: 40 mg Levetiracetam (Levetiracetam 500 Mg Tablet) 1,500 mg PO BID [facility] Last Admin: 03/12/23 07:51 Dose: 1,500 mg Loperamide HCl (Loperamide Hcl 2 Mg Capsule) 2 mg PO Q4H PRN PRN Reason: Loose Stool Loratadine (Loratadine 10 Mg Tablet) 10 mg PO DAILY PRN PRN Reason: post nasal drip Multivitamins/Vitamin C (Multivitamin Tablet) 1 tab PO DAILY [facility] Last Admin: 03/12/23 07:52 Dose: 1 tab Non-Formulary Medication (Perampanel [Fycompa]) 4 mg PO BEDTIME [facility] Last Admin: 03/12/23 01:07 Dose: Not Given Ondansetron HCl (Ondansetron Hcl 4 Mg/2 Ml Vial) 4 mg IVPUSH Q8H PRN PRN Reason: Nausea and Vomiting Risperidone (Risperidone 0.5 Mg Tablet) 0.5 mg PO BID [facility] Last Admin: 03/12/23 07:51 Dose: 0.5 mg Sodium Chloride (0.9 % Sodium Chloride Flush 3 Ml Syringe) 3 ml IVFLUSH QSHIFT [facility] Last Admin: 03/12/23 07:55 Dose: 3 ml Vitamin D (Cholecalciferol (Vitamin D3) 25 Mcg Tablet) 100 mcg PO DAILY [facility] Last Admin: 03/12/23 07:52 Dose: 100 mcg Home Medications Medication Instructions Recorded Confirmed Last Taken Type cetirizine 10 mg tablet (Zyrtec) 10 mg PO DAILY PRN post nasal drip 12/31/21 03/11/23 06/12/22 History cholecalciferol (vitamin D3) 50 100 mcg PO DAILY 12/31/21 03/11/23 06/12/22 History mcg (2,000 unit) tablet (Vitamin D3) clonazepam 0.5 mg tablet 0.5 mg PO BID@1600,2000 12/31/21 03/11/23 06/12/22 History diclofenac sodium 1 % topical gel 1 g topical Q4H PRN Pain (Scale 12/31/21 03/11/23 06/12/22 History Score 4-6) docusate sodium 100 mg capsule 100 mg PO BID 12/31/21 03/11/23 06/12/22 History (Colace) multivitamin 1 tab PO DAILY 12/31/21 03/11/23 06/12/22 History omega 8-erw-jun-fish oil 1,000 mg 1 cap PO DAILY 12/31/21 03/11/23 06/12/22 History (120 mg-180 mg) capsule (Fish Oil) risperidone 0.5 mg tablet 0.5 mg PO BID 12/31/21 03/11/23 06/12/22 History acetaminophen 325 mg tablet 650 mg PO Q6H PRN Pain 04/08/22 03/11/23 Unknown History (Tylenol) loperamide 2 mg tablet (Imodium 2 mg PO Q4H PRN Loose Stool 04/08/22 03/11/23 Unknown History A-D) clonidine HCl 0.1 mg tablet 0.1 mg PO DAILY PRN Agitation 06/12/22 03/11/23 Unknown History dextromethorphan-guaifenesin 10 10 ml PO Q4H PRN Congestion 06/12/22 03/11/23 Unknown History mg-200 mg/5 mL oral liquid clonazepam 0.5 mg tablet 1 mg PO DAILY 11/03/22 03/11/23 Unknown History calcium carbonate 400 mg calcium 1,000 mg PO DAILY 02/09/23 03/11/23 Unknown History (1,000 mg) chewable tablet (Tums Ultra) divalproex 500 mg tablet,delayed 500 mg PO BID 03/11/23 03/11/23 Unknown History release perampanel 4 mg tablet (Fycompa) 4 mg PO BEDTIME 03/11/23 03/11/23 Unknown History Physical Exam Vital Signs: Vital Signs: Last Vital Signs Temp 98.5 F 03/12/23 07:49 Pulse 98 03/12/23 07:49 Resp 18 03/12/23 07:49 BP 143/94 H 03/12/23 07:49 Pulse Ox 98 03/12/23 07:49 O2 Del Method Room Air 03/12/23 07:49 BMI result Body Mass Index 23.4 Neuro: Other: He is is usual self alert and awake with normal spontaneity of speech fluency comprehension and affect. He is asking multiple questions especially about side effects a medicines. There is no obvious new finding. Results Labs 03/12/23 05:31 03/12/23 05:31 Labs: Short CBC 03/11/23 03/12/23 Range/Units 18:17 05:31 WBC 5.5 7.1 (4.8-10.8) X10*3/uL Hgb 12.9 L 14.0 (14.0-18.0) g/dl Hct 37.1 L 39.9 L (42.0-52.0) % Plt Count 206 206 (160-400) X10*3/uL BMP 03/11/23 03/12/23 18:17 05:31 Sodium 142 139 Potassium 3.8 3.6 Chloride 109 H 105 Carbon Dioxide 25 25 BUN 10 8 L Creatinine 0.76 0.72 Calcium 9.6 9.2 Liver Function 03/11/23 Range/Units 18:17 Total Bilirubin 0.3 (0.0-1.0) mg/dL AST 24 (5-37) U/L ALT 22 (0-40) U/L Alkaline Phosphatase 41 (39-117) U/L Albumin 4.3 (3.5-5.0) g/dL Urine 03/11/23 Range/Units 20:40 Urine Color Yellow Urine Appearance Clear Urine pH 7.5 (5.0-9.0) Ur Specific [place] 1.015 (1.005-1.025) Urine Protein Negative (Neg-Trace) mg/dL Urine Glucose (UA) Negative (Negative) mg/dL Assessment and Plan (1) Seizure disorder, partial, intractable: Status: Acute 47 years old man with 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 His seizures have never been fully control but recent lack of control might have been triggered by changes in medicines. My recommendation is to put him back on Depakote 1000 mg twice a day, levetiracetam 1500 mg twice a day, and Fycompa 4 mg 1 at night. In emergency room, make sure that he gets and additional g of Depakote or valproic acid. Time Spent With Patient Time: Total time managing care of this patient today ____ minutes. Procedures Date of Service Date of Service: 03/12/23
--- NOTE | 2023-03-12 11:54 | PM.DS ---
DS: Providers Provider Date of Service: 03/12/23 Date of admission: 03/12/23 10:43 Primary care physician: Unknown Physician Consults: 03/11/23 22:28 Consult to Neurology Routine Consulting Provider: [facility] Reason for consultation: breakthrough seizure DS: Diagnosis Discharge Diagnosis (1) Seizure disorder, partial, intractable: Status: Resolved DS: Summary Hospital Course Hospital Course: Date of Service: 03/11/23 Chief Complaint: Multiple breakthrough seizures This is a 47-year-old male who is really well-known to us with history of intractable seizure disorder comes into the hospital today with more than 6 witnessed episodes of seizures at the [facility] as well as in the ED. Father is at bedside, gives most of the history. Patient's father reports the ever since his divalproex dose was reduced from 1000 b.i.d. to 500 b.i.d. patient has been having more seizures. He has been compliant with Fycompa and has not missed any doses. Patient is awake, alert, oriented to self and place, he denies any chest pain, no shortness of breath, no abdominal pain nausea or vomiting, no diarrhea constipation, no urinary symptoms and no lower extremity edema. On arrival to the ED patient hemodynamically stable no significant abnormal vitals Labs unremarkable Valproic acid is 46.6 and Keppra level pending Patient being admitted for further evaluation by Neurology. Hospital course: 47-year-old male with history of epileptic seizure comes into the hospital with multiple episodes of breakthrough seizures with underlying history of congenital/ chronic intractable epilepsy , exacerbation of seizure activity likely due to recent changes in medication ,patient evaluated by Dr. Holland he recommend to increase dose of Depakote to 1000 mg twice daily and continue Keppra 1500 mg twice daily and Fycompa 4 mg 1 at night, Patient treated in the emergency room with IV Ativan, two dosages of Versed as well as IV valproic acid at present patient awake, alert, with no recurrent episodes of seizure, therefore being discharged home with recommendation to follow up with PCP and Neurology to monitor level of Depakote and Keppra, on admission patient valproic acid level was 46.6 in subtherapeutic range. Time Spent with Patient Time attestation: Total time managing care of this patient today ____ minutes. Discharge coordination time: Greater than 30 minutes Quality: Safe Use of Opioids Does Pt have an Active Cancer Diagnosis on the Problem List?: No Quality: Stroke Does the patient have a stroke diagnosis?: No Physical Exam Vital Signs: Vital Signs: Last Vital Signs Temp 98.5 F 03/12/23 07:49 Pulse 98 03/12/23 07:49 Resp 18 03/12/23 07:49 BP 143/94 H 03/12/23 07:49 Pulse Ox 98 03/12/23 07:49 O2 Del Method Room Air 03/12/23 07:49 BMI result Body Mass Index 23.4 Const: Other: General: Ax O X 3, no acute distress neck supple Resp: CTA bilateral CVS: S1,S2,RRR GI: +BS, NT, no distention Skin: No rash Neuro: motor grossly intact Psych: appropriate affect DS: Data Data Completed and Pending Labs on day of discharge: Laboratory Results - last 24 hr 03/11/23 03/11/23 03/11/23 18:17 20:03 20:40 WBC 5.5 RBC 3.92 L Hgb 12.9 L Hct 37.1 L MCV 94.6 MCH 32.9 MCHC 34.8 RDW 13.3 Plt Count 206 MPV 10.3 Immature Gran % (Auto) 0.2 Neut % (Auto) 57.5 Lymph % (Auto) 28.6 [place] % (Auto) 13.0 H Eos % (Auto) 0.2 Baso % (Auto) 0.5 Lymph # (Auto) 1.6 [place] # (Auto) 0.7 Eos # (Auto) 0.0 Baso # (Auto) 0.0 Abs Immat Gran (auto) 0.01 Absolute Neuts (auto) 3.1 Absolute Nucleated RBC 0.000 Nucleated RBC % (auto) 0.0 Sodium 142 Potassium 3.8 Chloride 109 H Carbon Dioxide 25 Anion Gap 12 BUN 10 Creatinine 0.76 Estim Creat Clear Calc 86.8 Estimated GFR > 60 Random Glucose 104 Calcium 9.6 Total Bilirubin 0.3 AST 24 ALT 22 Alkaline Phosphatase 41 Total Protein 6.8 Albumin 4.3 Urine Color Yellow Urine Appearance Clear Urine pH 7.5 Ur Specific [place] 1.015 Urine Protein Negative Urine Glucose (UA) Negative Urine Ketones Negative Urine Blood Negative Urine Nitrite Negative Ur Leukocyte Esterase Negative Valproic Acid 46.6 L 03/12/23 05:31 WBC 7.1 RBC 4.21 L Hgb 14.0 Hct 39.9 L MCV 94.8 MCH 33.3 H MCHC 35.1 RDW 13.2 Plt Count 206 MPV 10.3 Immature Gran % (Auto) 0.4 Neut % (Auto) 46.5 Lymph % (Auto) 42.9 H [place] % (Auto) 9.7 Eos % (Auto) 0.1 Baso % (Auto) 0.4 Lymph # (Auto) 3.1 [place] # (Auto) 0.7 Eos # (Auto) 0.0 Baso # (Auto) 0.0 Abs Immat Gran (auto) 0.03 Absolute Neuts (auto) 3.3 Absolute Nucleated RBC 0.000 Nucleated RBC % (auto) 0.0 Sodium 139 Potassium 3.6 Chloride 105 Carbon Dioxide 25 Anion Gap 13 BUN 8 L Creatinine 0.72 Estim Creat Clear Calc 91.6 Estimated GFR > 60 Random Glucose 88 Calcium 9.2 Total Bilirubin AST ALT Alkaline Phosphatase Total Protein Albumin Urine Color Urine Appearance Urine pH Ur Specific [place] Urine Protein Urine Glucose (UA) Urine Ketones Urine Blood Urine Nitrite Ur Leukocyte Esterase Valproic Acid Discharge Plan Discharge Anticipated Discharge Date/Time: 03/12/23 11:47 Patient Disposition: Home, Self-Care Discharge Diagnosis: Acute intractable breakthrough seizures addition or for 2 of vanc Referrals: Physician,Unknown J [Primary Care Provider] - 1 Week Discharge Medications: New divalproex 500 mg Tablet,Delayed Release (Dr/Ec) 1,000 mg PO BID Qty: 60 0RF Continued multivitamin Tablet 1 tab PO DAILY cetirizine [Zyrtec] 10 mg Tablet 10 mg PO DAILY PRN (Reason: post nasal drip) clonazepam 0.5 mg tablet 0.5 mg PO BID@1600,2000 docusate sodium [Colace] 100 mg Capsule 100 mg PO BID risperidone 0.5 mg tablet 0.5 mg PO BID diclofenac sodium 1 % Gel 1 g TOPICAL Q4H PRN (Reason: Pain (Scale Score 4-6)) cholecalciferol (vitamin D3) [Vitamin D3] 50 mcg (2,000 unit) Tablet 100 mcg PO DAILY omega 4-doz-bhd-fish oil [Fish Oil] 1,000 mg (120 mg-180 mg) Capsule 1 cap PO DAILY acetaminophen [Tylenol] 325 mg Tablet 650 mg PO Q6H PRN (Reason: Pain) loperamide [Imodium A-D] 2 mg Tablet 2 mg PO Q4H PRN (Reason: Loose Stool) Rx Instructions: administer after each loose stool until symptoms controlled; do not exceed 8 mg per 24 hrs clonidine HCl 0.1 mg Tablet 0.1 mg PO DAILY PRN (Reason: Agitation) dextromethorphan-guaifenesin 10-200 mg/5 mL Liquid 10 ml PO Q4H PRN (Reason: Congestion) Rx Instructions: or cough levetiracetam 500 mg Tablet 1,500 mg PO BID Qty: 180 0RF clonazepam 0.5 mg tablet 1 mg PO DAILY calcium carbonate [Tums Ultra] 400 mg calcium (1,000 mg) Tablet,Chewable 1,000 mg PO DAILY Fycompa 4 mg tablet 4 mg PO BEDTIME Discontinued divalproex 500 mg tablet,delayed release (DR/EC) 500 mg PO BID Rx Instructions: Please fill in blister pack. Discharge Orders: Discharge Order (Routine); Ordered 03/12/23 Ordered By: Sindy Lang Diet: Advance to usual diet Activity on Discharge: As tolerated Stand Alone Forms: Patient Portal Discharge page Care Plan Goals: Dose of Depakote increased to 1000 mg 1 tablet twice daily Seizure precautions Health Concerns: Continue all home medications as above. Plan of Treatment: Outpatient follow-up with Neurology call for appointment Assessment: As above Discharge Date/Time: 03/12/23 12:44
== END 2023-03-12 12:44 | disposition home or self-care (01) | DRG 101 ==
LOC: HO.ED 21:51 → HO.EDOVER 22:29 → HO.S3 03-12 11:15 → HO.EDOVER 03-12 12:33
PROVIDERS: Admitting Provider Internal Medicine; Emergency Provider Student in an Organized Health Care Education/Training Program; PCP Family Medicine; Visit Provider Hospitalist
DX: G40.919 Epilepsy, unspecified, intractable, without status epilepticus (principal); G93.49 Other encephalopathy; Z79.899 Other long term (current) drug therapy
CPT/HCPCS: 36415; 80048; 80053; 80164; 80177; 81003; 85025; 99221; 99284; J1650; J2250

== ENCOUNTER → 2023-03-11 22:24 | Outpatient (BNV) | payer MEDICARE, MEDICAID, SELFPAY | PROVIDERS: Admitting Provider Internal Medicine; Emergency Provider Student in an Organized Health Care Education/Training Program; Visit Provider Internal Medicine | DX: G40.119 Localization-related (focal) (partial) symptomatic epilepsy and epileptic syndromes with simple partial seizures, intractable, without status epilepticus (principal) | CPT/HCPCS: 99222; 99239 ==

== ENCOUNTER 2023-03-19 16:46 | Emergency (ER) | payer MEDICARE, MEDICAID, SELFPAY ==
[2023-03-19 16:51] VITALS: BP 135/96; PULSE 99; O2SAT 96
[2023-03-19 17:14] VITALS: BP 157/107; PULSE 85; RESP 18; TEMP 37.1; O2SAT 100; BMI 35.8
--- NOTE | 2023-03-19 17:24 | PC.NURSE ---
spoke with father: transport to hospital was non-compliant with pt treatment plan established by neurology. pt is not to transport to ED unless he has had 3 established seizures, preference is for pt to transport back to [facility] if determined to be appropriate by provider. recent medication changes, pt has been compliant and tolerating the medications well.
--- NOTE | 2023-03-19 18:34 | ED_ITS ---
HPI - Seizure General Chief Complaint: Seizure Stated Complaint: SEIZURE ACTIVITY Time Seen by Provider: 03/19/23 17:37 History of Present Illness HPI Narrative: Patient is a 47-year-old male with a history of seizures in the past presented today with having an episode of seizure at the longterm. Patient baseline is on Depakote. Is on Keppra. The dose of Depakote has been increased to 1 g recently during admission. Patient was in the longterm when he had an episode of tonic-clonic seizure lasting approximately 10 seconds. [facility] sent the patient in for further evaluation. Patient has no complaint at the current time Seizure History: Yes Related Data Home Medications Medication Instructions Recorded Confirmed cetirizine 10 mg tablet (Zyrtec) 10 mg PO DAILY PRN post nasal drip 12/31/21 03/11/23 cholecalciferol (vitamin D3) 50 100 mcg PO DAILY 12/31/21 03/11/23 mcg (2,000 unit) tablet (Vitamin D3) clonazepam 0.5 mg tablet 0.5 mg PO BID@1600,2000 12/31/21 03/11/23 diclofenac sodium 1 % topical gel 1 g topical Q4H PRN Pain (Scale 12/31/21 03/11/23 Score 4-6) docusate sodium 100 mg capsule 100 mg PO BID 12/31/21 03/11/23 (Colace) multivitamin 1 tab PO DAILY 12/31/21 03/11/23 omega 7-oqb-mjb-fish oil 1,000 mg 1 cap PO DAILY 12/31/21 03/11/23 (120 mg-180 mg) capsule (Fish Oil) risperidone 0.5 mg tablet 0.5 mg PO BID 12/31/21 03/11/23 acetaminophen 325 mg tablet 650 mg PO Q6H PRN Pain 04/08/22 03/11/23 (Tylenol) loperamide 2 mg tablet (Imodium 2 mg PO Q4H PRN Loose Stool 04/08/22 03/11/23 A-D) clonidine HCl 0.1 mg tablet 0.1 mg PO DAILY PRN Agitation 06/12/22 03/11/23 dextromethorphan-guaifenesin 10 10 ml PO Q4H PRN Congestion 06/12/22 03/11/23 mg-200 mg/5 mL oral liquid clonazepam 0.5 mg tablet 1 mg PO DAILY 11/03/22 03/11/23 calcium carbonate 400 mg calcium 1,000 mg PO DAILY 02/09/23 03/11/23 (1,000 mg) chewable tablet (Tums Ultra) perampanel 4 mg tablet (Fycompa) 4 mg PO BEDTIME 03/11/23 03/11/23 Previous Rx's Medication Instructions Recorded levetiracetam 500 mg tablet 1,500 mg (3 x 500 mg) PO BID #180 03/04/22 tabs divalproex 500 mg tablet,delayed 1,000 mg (2 x 500 mg) PO BID #60 03/12/23 release tabs Allergies Allergy/AdvReac Type Severity Reaction Status Date / Time No Known Allergies Allergy Verified 03/04/23 21:06 [No Known Allergies*] Review of Systems Review of Systems: No chest pain or shortness breath no nausea no vomiting no focal weakness Yes all other systems are reviewed and are negative [facility] Past Medical History Attestation statement: The following information was validated with the patient. Medical History Intractable seizure disorder Intractable epilepsy Epileptic seizure Hyponatremia History of SIADH Seizure disorder Intellectual disability Anxiety disorder, unspecified Surgical History No pertinent past surgical history Family History Family History Other No family history of coronary artery disease Social History Social History Household Members: Other Household Members Other:: groop home Housing: House Housing Other:: longterm Do you presently have visiting nurse or other home services: No Alcohol intake: never Patient Tobacco Use Status: Never used Tobacco Smoked in Last 30 Days: No e-Cigarette/Vaping Use: Never Used Use of substances other than those prescribed or required for medical reasons: No Advance Directives: Yes Advance Directives on File: Yes Advance Directives Date on File: 02/06/22 service: No Current occupational status: disabled Physical Exam Vital Signs: Vital Signs: Last Vital Signs Temp 98.8 F 03/19/23 17:14 Pulse 85 03/19/23 17:14 Resp 18 03/19/23 17:14 BP 157/107 H 03/19/23 17:14 Pulse Ox 100 03/19/23 17:14 O2 Del Method Room Air 03/19/23 17:14 BMI result Body Mass Index 35.8 Appearance: Alert. Oriented X3. No acute distress. Eyes: Pupils equal, round and reactive to light. ENT: Pharynx normal. Neck: Normal inspection. Neck supple. No lymph nodes noted. No crepitus CVS: Normal heart rate and rhythm. Pulses normal. Normal S1 and S2 Respiratory: No respiratory distress. Breath sounds normal. No Wheezing. No rales Abdomen: Soft and nontender. No rigidity. No distention. good BS x4 Skin: Skin warm and dry. Normal skin color. Normal skin turgor. Extremities: No lower extremity edema. Neurovascular intact to all extremities. No Lacerations. No Rash Neuro: Oriented X 3. No motor deficit. No sensory deficit. Moving all extermities. No slurred speech Medical Decision Making Medical Decision Making MDM Narrative: Patient neurologically intact. No distress. Case discussed with patient's father power criminal attorney. Did not want additional testing. Once patient be sent back. Patient has a long history of seizures. They establish a protocol where he would need 3 seizures before he is brought to the emergency department. His seizure was of short duration. Patient is back to his baseline. Family did not want additional blood work or any additional imaging. Patient to be sent Differential Diagnosis Differential Diagnoses: The differential diagnosis associated with the presentation includes Seizure Admission/Observation Consideration of admission/observation: Escalation of care including admission/observation considered Patient has long history of seizure. Today seizure was actually of a shorter duration. Did not have repetitive seizures today. Independent Historian Clinical information obtained from an independent historian. History obtained from or confirmed by: Parent Case discussed with patient's father External Record Review External record reviewed: Inpatient record Patient's recent hospitalization with her record reviewed Tests considered The following testing was considered but not selected: CT scan of the head considered additional blood work considered at this point family did not want either 1 Chronic Conditions Seizure, mentally challenged Social Determinants Lives in a longterm Discharge Plan Discharge Clinical Impression: Epileptic seizure Patient Disposition: Home, Self-Care Instructions: Epilepsy (DC) Prescriptions: No Action multivitamin Tablet 1 tab PO DAILY cetirizine [Zyrtec] 10 mg Tablet 10 mg PO DAILY PRN (Reason: post nasal drip) clonazepam 0.5 mg tablet 0.5 mg PO BID@1600,2000 docusate sodium [Colace] 100 mg Capsule 100 mg PO BID risperidone 0.5 mg tablet 0.5 mg PO BID diclofenac sodium 1 % Gel 1 g TOPICAL Q4H PRN (Reason: Pain (Scale Score 4-6)) cholecalciferol (vitamin D3) [Vitamin D3] 50 mcg (2,000 unit) Tablet 100 mcg PO DAILY omega 8-rrs-ghv-fish oil [Fish Oil] 1,000 mg (120 mg-180 mg) Capsule 1 cap PO DAILY acetaminophen [Tylenol] 325 mg Tablet 650 mg PO Q6H PRN (Reason: Pain) loperamide [Imodium A-D] 2 mg Tablet 2 mg PO Q4H PRN (Reason: Loose Stool) Rx Instructions: administer after each loose stool until symptoms controlled; do not exceed 8 mg per 24 hrs clonidine HCl 0.1 mg Tablet 0.1 mg PO DAILY PRN (Reason: Agitation) dextromethorphan-guaifenesin 10-200 mg/5 mL Liquid 10 ml PO Q4H PRN (Reason: Congestion) Rx Instructions: or cough levetiracetam 500 mg Tablet 1,500 mg PO BID Qty: 180 0RF clonazepam 0.5 mg tablet 1 mg PO DAILY calcium carbonate [Tums Ultra] 400 mg calcium (1,000 mg) Tablet,Chewable 1,000 mg PO DAILY Fycompa 4 mg tablet 4 mg PO BEDTIME divalproex 500 mg Tablet,Delayed Release (Dr/Ec) 1,000 mg PO BID Qty: 60 0RF Referrals: Roosevelt Avina MD [Physician] - 03/22/23
--- NOTE | 2023-03-19 18:48 | PC.NURSE ---
RN-RN report called to program nurse - father spoke with MD, declined additional testing, RN to call memory care program director to arrange transport.
[2023-03-19 19:15] VITALS: BP 157/103; PULSE 76; RESP 20; O2SAT 99
--- NOTE | 2023-03-19 19:21 | MHC.EDTECH ---
Addendum entered by HALLEY Juarez 03/19/23 19:23: Pt BP was Elevated LEODAN Benitez made aware Original Note: While rounding this tech noticed PT was soiled. Pt cleaned up and dirty linen changed and replaced with clean linen. Pt repositioned for comfort
== END 2023-03-19 19:53 | disposition home or self-care (01) ==
PROVIDERS: Emergency Provider Emergency Medicine Emergency Medical Services
DX: G40.909 Epilepsy, unspecified, not intractable, without status epilepticus (principal); Z79.899 Other long term (current) drug therapy
CPT/HCPCS: 99284

== ENCOUNTER 2023-04-12 16:43 | Emergency (ER) | payer MEDICARE, MEDICAID, SELFPAY ==
[2023-04-12 16:56] VITALS: BP 132/90; PULSE 98; O2SAT 98
[2023-04-12 17:03] VITALS: BP 170/85; PULSE 92; RESP 18; TEMP 36.6; O2SAT 98; BMI 20.1
--- NOTE | 2023-04-12 17:35 | ED.SEIZURE ---
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 , on multiple seizure medication including Depakote 1000 mg twice daily Keppra 1500 mg twice daily of Fycompa 4 mg in the night was seen here on 03/19 for episode of seizure comes here for 2 seizures lasting only for few seconds per protocol of the [facility] patient came to the ER as he did not to wait for 3rd seizure to happen no recent head injury patient is baseline Seizure History: Yes Related Data Home Medications Medication Instructions Recorded Confirmed cetirizine 10 mg tablet (Zyrtec) 10 mg PO DAILY PRN post nasal drip 12/31/21 03/11/23 cholecalciferol (vitamin D3) 50 100 mcg PO DAILY 12/31/21 03/11/23 mcg (2,000 unit) tablet (Vitamin D3) clonazepam 0.5 mg tablet 0.5 mg PO BID@1600,2000 12/31/21 03/11/23 diclofenac sodium 1 % topical gel 1 g topical Q4H PRN Pain (Scale 12/31/21 03/11/23 Score 4-6) docusate sodium 100 mg capsule 100 mg PO BID 12/31/21 03/11/23 (Colace) multivitamin 1 tab PO DAILY 12/31/21 03/11/23 omega 2-wua-uyw-fish oil 1,000 mg 1 cap PO DAILY 12/31/21 03/11/23 (120 mg-180 mg) capsule (Fish Oil) risperidone 0.5 mg tablet 0.5 mg PO BID 12/31/21 03/11/23 acetaminophen 325 mg tablet 650 mg PO Q6H PRN Pain 04/08/22 03/11/23 (Tylenol) loperamide 2 mg tablet (Imodium 2 mg PO Q4H PRN Loose Stool 04/08/22 03/11/23 A-D) clonidine HCl 0.1 mg tablet 0.1 mg PO DAILY PRN Agitation 06/12/22 03/11/23 dextromethorphan-guaifenesin 10 10 ml PO Q4H PRN Congestion 06/12/22 03/11/23 mg-200 mg/5 mL oral liquid clonazepam 0.5 mg tablet 1 mg PO DAILY 11/03/22 03/11/23 calcium carbonate 400 mg calcium 1,000 mg PO DAILY 02/09/23 03/11/23 (1,000 mg) chewable tablet (Tums Ultra) perampanel 4 mg tablet (Fycompa) 4 mg PO BEDTIME 03/11/23 03/11/23 Previous Rx's Medication Instructions Recorded levetiracetam 500 mg tablet 1,500 mg (3 x 500 mg) PO BID #180 03/04/22 tabs divalproex 500 mg tablet,delayed 1,000 mg (2 x 500 mg) PO BID #60 03/12/23 release tabs Allergies Allergy/AdvReac Type Severity Reaction Status Date / Time No Known Allergies Allergy Verified 03/04/23 21:06 [No Known Allergies*] Review of Systems Review of Systems: Yes all other systems are reviewed and are negative PMFSH Past Medical History Medical History Intractable seizure disorder Intractable epilepsy Epileptic seizure Hyponatremia History of SIADH Seizure disorder Intellectual disability Anxiety disorder, unspecified Surgical History No pertinent past surgical history Family History Family History Other No family history of coronary artery disease Social History Social History Household Members: Other Household Members Other:: groop home Housing: House Housing Other:: [facility] Do you presently have visiting nurse or other home services: No Alcohol intake: never Patient Tobacco Use Status: Never used Tobacco Smoked in Last 30 Days: No e-Cigarette/Vaping Use: Never Used Use of substances other than those prescribed or required for medical reasons: No Advance Directives: Yes Advance Directives on File: Yes Advance Directives Date on File: 02/06/22 service: No Current occupational status: disabled Physical Exam Vital Signs: Vital Signs: Last Vital Signs Temp 98 F 04/12/23 19:35 Pulse 86 04/12/23 19:35 Resp 18 04/12/23 19:35 BP 158/82 H 04/12/23 19:35 Pulse Ox 98 04/12/23 19:35 O2 Del Method Room Air 04/12/23 19:35 BMI result Body Mass Index 20.1 Appearance: Alert. Oriented X2. No acute distress. Eyes: PERRLA, No Nystagmus ENT: Pharynx normal. Oral Mucosa moist no tongue bite Neck: Normal inspection. Neck supple. CVS: Normal heart rate and rhythm. Pulses normal. Respiratory: No respiratory distress. Equal air entry bilateral, no wheezing/rales/rhonchi Abdomen: Soft and nontender. Bowel sounds are present, no mass palpable, no CVA tenderness Skin: Skin warm and dry. Normal skin color. Normal skin turgor. Extremities: No lower extremity edema. No calf tenderness Neuro: Oriented X 2. No motor deficit. No sensory deficit.No cerebellar signs , cranial nerves II-XII intact Medications Administered Discontinued Medications Generic Name Dose Route Start Last Admin Trade Name Freq PRN Reason Stop Dose Admin Divalproex Sodium 1,000 mg 04/12/23 17:42 04/12/23 18:21 Divalproex Sodium 500 Mg Tablet.Dr PO 04/12/23 17:43 1,000 mg ONCE ONE Administration Levetiracetam 1,500 mg 04/12/23 17:42 04/12/23 18:21 Levetiracetam 1,000 Mg Tablet PO 04/12/23 17:43 1,500 mg ONCE ONE Administration Medical Decision Making Medical Decision Making [facility] Narrative: Patient with recurrent epilepsy on multiple medication advised to continue same medications was given 2 doses tonight Depakote level was normal Differential Diagnosis Differential Diagnoses: The differential diagnosis associated with the presentation includes Epilepsy/recurrent epilepsy/metabolic disorder Lab Data [facility] Lab Attestation statement: I reviewed the patient's lab results. 04/12/23 18:33 04/12/23 18:33 Labs: Lab Results 04/12/23 Range/Units 18:33 WBC 9.3 (4.8-10.8) X10*3/uL RBC 4.64 (4.60-5.80) X10*6/uL Hgb 15.1 (14.0-18.0) g/dl Hct 43.6 (42.0-52.0) % MCV 94.0 (80.0-98.0) fL MCH 32.5 (27.0-33.0) pg MCHC 34.6 (31.0-36.0) g/dl RDW 12.9 (11.0-16.0) % Plt Count 194 (160-400) X10*3/uL MPV 10.3 (9.4-12.4) fL Immature Gran % (Auto) 0.4 (0.0-0.4) % Neut % (Auto) 75.8 H (45-73) % Lymph % (Auto) 15.5 L (20-40) % Gregg % (Auto) 8.0 (2-11) % Eos % (Auto) 0.1 (0-4) % Baso % (Auto) 0.2 (0-2) % Lymph # (Auto) 1.5 (1.2-4.9) X10*3/uL Gregg # (Auto) 0.8 (0.1-1.2) X10*3/uL Eos # (Auto) 0.0 (0.0-0.4) X10*3/uL Baso # (Auto) 0.0 (0.0-0.2) X10*3/uL Abs Immat Gran (auto) 0.04 H (0.00-0.03) X10*3/uL Absolute Neuts (auto) 7.1 (2.0-8.3) x10*3/uL Absolute Nucleated RBC 0.000 (0.0-0.012) X10*3/uL Nucleated RBC % (auto) 0.0 (0.0-0.2) /100WBC Sodium 140 (135-145) mmol/L Potassium 3.8 (3.3-5.1) mmol/L Chloride 105 (96-108) mmol/L Carbon Dioxide 23 (22-29) mmol/L Anion Gap 16 (12-20) BUN 10 (9-16) mg/dL Creatinine 0.68 (0.5-1.4) mg/dL Estim Creat Clear Calc 101.8 Estimated GFR > 60 Random Glucose 97 (60-115) mg/dL Calcium 9.8 D (8.4-10.2) mg/dL Total Bilirubin 0.3 (0.0-1.0) mg/dL AST 27 (5-37) U/L ALT 24 (0-40) U/L Alkaline Phosphatase 41 (39-117) U/L Total Protein 7.5 (6.5-8.0) g/dL Albumin 4.5 (3.5-5.0) g/dL Valproic Acid 67.6 (50.0-100.0) mcg/mL Discharge Plan Discharge Clinical Impression: Epileptic seizure Patient Disposition: Home, Self-Care Instructions: Recurrent Seizures in Adults (ED) Additional Instructions: Take your Fycompa tonight you have been given divalproex and levetiracetam in the ER Follow-up with neurology Prescriptions: No Action multivitamin Tablet 1 tab PO DAILY cetirizine [Zyrtec] 10 mg Tablet 10 mg PO DAILY PRN (Reason: post nasal drip) clonazepam 0.5 mg tablet 0.5 mg PO BID@1600,2000 docusate sodium [Colace] 100 mg Capsule 100 mg PO BID risperidone 0.5 mg tablet 0.5 mg PO BID diclofenac sodium 1 % Gel 1 g TOPICAL Q4H PRN (Reason: Pain (Scale Score 4-6)) cholecalciferol (vitamin D3) [Vitamin D3] 50 mcg (2,000 unit) Tablet 100 mcg PO DAILY omega 8-uji-xyb-fish oil [Fish Oil] 1,000 mg (120 mg-180 mg) Capsule 1 cap PO DAILY acetaminophen [Tylenol] 325 mg Tablet 650 mg PO Q6H PRN (Reason: Pain) loperamide [Imodium A-D] 2 mg Tablet 2 mg PO Q4H PRN (Reason: Loose Stool) Rx Instructions: administer after each loose stool until symptoms controlled; do not exceed 8 mg per 24 hrs clonidine HCl 0.1 mg Tablet 0.1 mg PO DAILY PRN (Reason: Agitation) dextromethorphan-guaifenesin 10-200 mg/5 mL Liquid 10 ml PO Q4H PRN (Reason: Congestion) Rx Instructions: or cough levetiracetam 500 mg Tablet 1,500 mg PO BID Qty: 180 0RF clonazepam 0.5 mg tablet 1 mg PO DAILY calcium carbonate [Tums Ultra] 400 mg calcium (1,000 mg) Tablet,Chewable 1,000 mg PO DAILY Fycompa 4 mg tablet 4 mg PO BEDTIME divalproex 500 mg Tablet,Delayed Release (Dr/Ec) 1,000 mg PO BID Qty: 60 0RF Interventions: ED Discharge Assessment Last Done: 04/12/23 21:21 Discharge Date/Time: 04/12/23 21:22
[2023-04-12 19:35] VITALS: BP 158/82; PULSE 86; RESP 18; TEMP 36.6; O2SAT 98
--- NOTE | 2023-04-12 19:50 | PC.NURSE ---
Spoke with pt courtney who stated they will come pick him up
--- NOTE | 2023-04-12 21:12 | PC.NURSE ---
Attempted to call retirement to find out ETA, no answer, left a message requesting to call back.
== END 2023-04-12 21:22 | disposition home or self-care (01) ==
PROVIDERS: Emergency Provider Internal Medicine; PCP Family Medicine
DX: G40.909 Epilepsy, unspecified, not intractable, without status epilepticus (principal); Z79.899 Other long term (current) drug therapy
CPT/HCPCS: 36415; 80053; 80164; 85025; 99283; 99284

== ENCOUNTER 2023-04-13 19:36 | Emergency (ER) | payer MEDICARE, MEDICAID, SELFPAY ==
[2023-04-13 19:43] VITALS: BP 114/72; PULSE 78; O2SAT 97
[2023-04-13 19:51] VITALS: BP 142/97; PULSE 103; RESP 18; TEMP 37.1; O2SAT 98; BMI 28.1
[2023-04-13 20:24] VITALS: BP 149/96; PULSE 101; RESP 18; TEMP 37; O2SAT 99
--- NOTE | 2023-04-13 21:23 | ED.SEIZURE ---
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 , on multiple seizure medication including Depakote 1000 mg twice daily Keppra 1500 mg twice daily of Fycompa 4 mg in the night was seen here on 03/19 and last night for episode of seizure comes here for 3 seizures lasting only for few seconds per protocol of the [facility] patient came to the [facility] recent head injury patient is baseline patient had therapeutic Depakote level yesterday patient under increased stress lately Seizure History: Yes Related Data Home Medications Medication Instructions Recorded Confirmed cetirizine 10 mg tablet (Zyrtec) 10 mg PO DAILY PRN post nasal drip 12/31/21 03/11/23 cholecalciferol (vitamin D3) 50 100 mcg PO DAILY 12/31/21 03/11/23 mcg (2,000 unit) tablet (Vitamin D3) clonazepam 0.5 mg tablet 0.5 mg PO BID@1600,2000 12/31/21 03/11/23 diclofenac sodium 1 % topical gel 1 g topical Q4H PRN Pain (Scale 12/31/21 03/11/23 Score 4-6) docusate sodium 100 mg capsule 100 mg PO BID 12/31/21 03/11/23 (Colace) multivitamin 1 tab PO DAILY 12/31/21 03/11/23 omega 7-tkk-lfv-fish oil 1,000 mg 1 cap PO DAILY 12/31/21 03/11/23 (120 mg-180 mg) capsule (Fish Oil) risperidone 0.5 mg tablet 0.5 mg PO BID 12/31/21 03/11/23 acetaminophen 325 mg tablet 650 mg PO Q6H PRN Pain 04/08/22 03/11/23 (Tylenol) loperamide 2 mg tablet (Imodium 2 mg PO Q4H PRN Loose Stool 04/08/22 03/11/23 A-D) clonidine HCl 0.1 mg tablet 0.1 mg PO DAILY PRN Agitation 06/12/22 03/11/23 dextromethorphan-guaifenesin 10 10 ml PO Q4H PRN Congestion 06/12/22 03/11/23 mg-200 mg/5 mL oral liquid clonazepam 0.5 mg tablet 1 mg PO DAILY 11/03/22 03/11/23 calcium carbonate 400 mg calcium 1,000 mg PO DAILY 02/09/23 03/11/23 (1,000 mg) chewable tablet (Tums Ultra) perampanel 4 mg tablet (Fycompa) 4 mg PO BEDTIME 03/11/23 03/11/23 Previous Rx's Medication Instructions Recorded levetiracetam 500 mg tablet 1,500 mg (3 x 500 mg) PO BID #180 03/04/22 tabs divalproex 500 mg tablet,delayed 1,000 mg (2 x 500 mg) PO BID #60 03/12/23 release tabs Allergies Allergy/AdvReac Type Severity Reaction Status Date / Time No Known Allergies Allergy Verified 03/04/23 21:06 [No Known Allergies*] Review of Systems Review of Systems: Yes all other systems are reviewed and are negative [facility] Past Medical History Medical History Intractable seizure disorder Intractable epilepsy Epileptic seizure Hyponatremia History of SIADH Seizure disorder Intellectual disability Anxiety disorder, unspecified Surgical History No pertinent past surgical history Family History Family History Other No family history of coronary artery disease Social History Social History Household Members: Other Household Members Other:: groop home Housing: House Housing Other:: [facility] Do you presently have visiting nurse or other home services: No Alcohol intake: never Patient Tobacco Use Status: Never used Tobacco e-Cigarette/Vaping Use: Never Used Use of substances other than those prescribed or required for medical reasons: No Advance Directives: Yes Advance Directives on File: Yes Advance Directives Date on File: 02/06/22 service: No Current occupational status: disabled Physical Exam Vital Signs: Vital Signs: Last Vital Signs Temp 98.6 F 04/13/23 20:24 Pulse 101 H 04/13/23 20:24 Resp 18 04/13/23 20:24 BP 149/96 H 04/13/23 20:24 Pulse Ox 99 04/13/23 20:24 O2 Del Method Room Air 04/13/23 20:24 BMI result Body Mass Index 28.1 Const: Other: Appearance: Alert. Oriented X2. No acute distress. Eyes: PERRLA, No Nystagmus ENT: Pharynx normal. Oral Mucosa moist Neck: Normal inspection. Neck supple. CVS: Normal heart rate and rhythm. Pulses normal. Respiratory: No respiratory distress. Equal air entry bilateral, no wheezing/rales/rhonchi Abdomen: Soft and nontender. Bowel sounds are present, no mass palpable, no CVA tenderness Skin: Skin warm and dry. Normal skin color. Normal skin turgor. Extremities: No lower extremity edema. No calf tenderness Neuro: Oriented X 2. No motor deficit. No sensory deficit.No cerebellar signs , cranial nerves II-XII intact Medications Administered Discontinued Medications Generic Name Dose Route Start Last Admin Trade Name Freq PRN Reason Stop Dose Admin Clonazepam 1 mg 04/13/23 21:23 04/13/23 21:40 Clonazepam 1 Mg Tablet PO 04/13/23 21:24 Not Given ONCE ONE Medical Decision Making Medical Decision Making MDM Narrative: Patient has frequent seizures lasting only for few seconds on Fycompa 4 mg and I supposed to increase the dose to 6 but when the increased last time patient had dizziness and sleepiness this seizures are slightly atypical patient and staff advised to take the Klonopin extra if having the seizure Differential Diagnosis Differential Diagnoses: The differential diagnosis associated with the presentation includes Status epilepticus/stress-induced seizures/epilepsy Discharge Plan Discharge Clinical Impression: Generalized seizure Patient Disposition: Home, Self-Care Instructions: Recurrent Seizures in Adults (ED) Additional Instructions: Continue your treatment as prescribed by your neurologist Take clonazepam as prescribed twice daily and as needed for the seizure Prescriptions: No Action multivitamin Tablet 1 tab PO DAILY cetirizine [Zyrtec] 10 mg Tablet 10 mg PO DAILY PRN (Reason: post nasal drip) clonazepam 0.5 mg tablet 0.5 mg PO BID@1600,2000 docusate sodium [Colace] 100 mg Capsule 100 mg PO BID risperidone 0.5 mg tablet 0.5 mg PO BID diclofenac sodium 1 % Gel 1 g TOPICAL Q4H PRN (Reason: Pain (Scale Score 4-6)) cholecalciferol (vitamin D3) [Vitamin D3] 50 mcg (2,000 unit) Tablet 100 mcg PO DAILY omega 8-qom-ayn-fish oil [Fish Oil] 1,000 mg (120 mg-180 mg) Capsule 1 cap PO DAILY acetaminophen [Tylenol] 325 mg Tablet 650 mg PO Q6H PRN (Reason: Pain) loperamide [Imodium A-D] 2 mg Tablet 2 mg PO Q4H PRN (Reason: Loose Stool) Rx Instructions: administer after each loose stool until symptoms controlled; do not exceed 8 mg per 24 hrs clonidine HCl 0.1 mg Tablet 0.1 mg PO DAILY PRN (Reason: Agitation) dextromethorphan-guaifenesin 10-200 mg/5 mL Liquid 10 ml PO Q4H PRN (Reason: Congestion) Rx Instructions: or cough levetiracetam 500 mg Tablet 1,500 mg PO BID Qty: 180 0RF clonazepam 0.5 mg tablet 1 mg PO DAILY calcium carbonate [Tums Ultra] 400 mg calcium (1,000 mg) Tablet,Chewable 1,000 mg PO DAILY Fycompa 4 mg tablet 4 mg PO BEDTIME divalproex 500 mg Tablet,Delayed Release (Dr/Ec) 1,000 mg PO BID Qty: 60 0RF Interventions: ED Discharge Assessment Last Done: 04/13/23 21:41 Discharge Date/Time: 04/13/23 21:42
== END 2023-04-13 21:42 | disposition home or self-care (01) ==
PROVIDERS: Emergency Provider Internal Medicine; PCP Family Medicine
DX: R56.9 Unspecified convulsions (principal); Z79.899 Other long term (current) drug therapy
CPT/HCPCS: 99282; 99284

== ENCOUNTER 2023-06-15 07:58 | Outpatient (REF) | payer MEDICARE, MEDICAID, SELFPAY ==
[2023-06-15 11:51] LABS: Alanine Aminotransferase 17 U/L (0-40); Alkaline Phosphatase 38 U/L (39-117); Aspartate Amino Transferase 21 U/L (5-37); Bilirubin Direct < 0.2 mg/dL (0.0-0.5); Bilirubin Total 0.2 mg/dL (0.0-1.0); Total Protein 6.7 g/dL (6.5-8.0)
[2023-06-15 12:08] LABS: Valproate 68.1 mcg/mL (50.0-100.0)
== END 2023-06-15 07:59 | disposition home or self-care (01) ==
LOC: HO.HMGCLDS 07:58
PROVIDERS: PCP Family Medicine; Visit Provider General Practice
DX: F41.1 Generalized anxiety disorder (principal); Z79.899 Other long term (current) drug therapy
CPT/HCPCS: 36415; 80076; 80164

== ENCOUNTER 2023-07-04 14:39 | Inpatient (IN) | payer MEDICARE, MEDICAID, SELFPAY ==
--- NOTE | ~2023-07-04 | CT_ITS ---
EXAMINATION: CT head/brain wo IV con CLINICAL INFORMATION: Reason for Exam seizure COMPARISON: CT head without contrast 11/03/2022 TECHNIQUE: Contiguous axial imaging was performed from the skull base to vertex without intravenous contrast. Sagittal and coronal reformatted images were obtained. This CT examination was performed using dose optimization techniques as appropriate, variously including the following: * Automated exposure control * Adjustment of mA and/or kV according to patient size (this includes techniques or standardized protocols for targeted exams where dose is matched to indication/reason for exam; i.e. extremities or head) Use of iterative reconstruction technique DLP: 533 mGy-cm FINDINGS: No acute osseous or soft tissue abnormality. The mastoids are clear. Left maxillary sinus retention cyst. There is no evidence of acute intracranial hemorrhage or territorial infarction. No abnormal mass effect or midline shift is seen. Pérez to white matter differentiation is well preserved. No extra-axial fluid collections are identified. No hydrocephalus. Stable chronic left greater than right parietooccipital volume loss/encephalomalacia. CT/CT head/brain wo IV con IMPRESSION: No acute intracranial abnormality including hemorrhage, mass effect, hydrocephalus, or acute territorial edematous infarction.
[2023-07-04 14:57] VITALS: BP 136/79; PULSE 89; O2SAT 96; BMI 26.8
[2023-07-04 15:27] VITALS: BP 142/104; PULSE 83; RESP 16; TEMP 36.8
--- NOTE | 2023-07-04 16:16 | ED.SEIZURE ---
HPI - Seizure General Chief Complaint: Seizure Stated Complaint: 6 SZ'S TODAY,FROM [facility] PER EMS Time Seen by Provider: 07/04/23 16:07 Source: patient, family (Caregiver) and EMS Mode of arrival: EMS Limitations: no limitations and altered mental status History of Present Illness HPI Narrative: 47-year-old male with history of intractable seizure disorder comes into the hospital today with more than 6 witnessed seizure at the residential and 1 seizure during transportation by ambulance and another witnessed seizure by myself while interviewing the patient making it total of 8 seizures today. Most of the history was obtained from the caregiver at the bedside as per caregiver patient has been taking his medication. No reported head injury. Otherwise no symptoms reported by the staff. Patient is postictal and nonverbal at this point Seizure History: Yes Related Data Home Medications Medication Instructions Recorded Confirmed cetirizine 10 mg tablet (Zyrtec) 10 mg PO DAILY PRN post nasal drip 12/31/21 03/11/23 cholecalciferol (vitamin D3) 50 100 mcg PO DAILY 12/31/21 03/11/23 mcg (2,000 unit) tablet (Vitamin D3) clonazepam 0.5 mg tablet 0.5 mg PO BID@1600,2000 12/31/21 03/11/23 diclofenac sodium 1 % topical gel 1 g topical Q4H PRN Pain (Scale 12/31/21 03/11/23 Score 4-6) docusate sodium 100 mg capsule 100 mg PO BID 12/31/21 03/11/23 (Colace) multivitamin 1 tab PO DAILY 12/31/21 03/11/23 omega 1-pkk-juw-fish oil 1,000 mg 1 cap PO DAILY 12/31/21 03/11/23 (120 mg-180 mg) capsule (Fish Oil) risperidone 0.5 mg tablet 0.5 mg PO BID 12/31/21 03/11/23 acetaminophen 325 mg tablet 650 mg PO Q6H PRN Pain 04/08/22 03/11/23 (Tylenol) loperamide 2 mg tablet (Imodium 2 mg PO Q4H PRN Loose Stool 04/08/22 03/11/23 A-D) clonidine HCl 0.1 mg tablet 0.1 mg PO DAILY PRN Agitation 06/12/22 03/11/23 clonazepam 0.5 mg tablet 1 mg PO DAILY 11/03/22 03/11/23 calcium carbonate 500 mg calcium 1,000 mg PO DAILY 07/04/23 07/04/23 (1,250 mg) tablet cenobamate 100 mg tablet (Xcopri) 100 mg PO DAILY 07/04/23 cenobamate 50 mg tablet (Xcopri) 50 mg PO DAILY 07/04/23 dextromethorphan-guaifenesin 10 10 ml PO Q4H PRN Cough 07/04/23 07/04/23 mg-100 mg/5 mL oral liquid (Karena-Tussin DM) perampanel 2 mg tablet (Fycompa) 2 mg PO DAILY 07/04/23 Previous Rx's Medication Instructions Recorded levetiracetam 500 mg tablet 1,500 mg (3 x 500 mg) PO BID #180 03/04/22 tabs divalproex 500 mg tablet,delayed 1,000 mg (2 x 500 mg) PO BID #60 03/12/23 release tabs Allergies Allergy/AdvReac Type Severity Reaction Status Date / Time No Known Allergies Allergy Verified 03/04/23 21:06 [No Known Allergies*] Review of Systems Review of Systems: all other systems are reviewed and are negative Constitutional: Reports as per HPI and Reports no additional constitutional complaints Eyes: Reports as per HPI and Reports no additional eye complaints Reports system reviewed and no additional complaints, except as documented Cardiovascular: Reports as per HPI and Reports no additional cardiovascular complaints Respiratory: Reports as per HPI and Reports no additional respiratory complaints Gastrointestinal: Reports as per HPI and Reports no additional gastrointestinal complaints Genitourinary: Reports no additional female genitourinary complaints Musculoskeletal: Reports no additional musculoskeletal complaints Skin/Breast: Reports system reviewed and no additional complaints, except as docu Psychiatric: Reports no additional psychiatric complaints Endocrine: Reports no additional endocrine complaints Hematologic/Lymphatic: Reports no additional hematologic/lymphatic complaints Allergic/Immunologic: Reports no additional allergic/immunologic complaints Reports system reviewed and no additional complaints, except as documented and Reports Abnormal speech present [facility] Past Medical History Medical History (Updated 07/04/23 @ 18:37 by Sindy Lang MD) Intractable seizure disorder Intractable epilepsy Epileptic seizure Hyponatremia History of SIADH Seizure disorder Intellectual disability Anxiety disorder, unspecified Surgical History No pertinent past surgical history Family History Family History Other No family history of coronary artery disease Social History Social History Household Members: Other Household Members Other:: groop home Housing: House Housing Other:: residential Do you presently have visiting nurse or other home services: No Alcohol intake: never Patient Tobacco Use Status: Never used Tobacco e-Cigarette/Vaping Use: Never Used Advance Directives: Yes Advance Directives on File: Yes Advance Directives Date on File: 02/06/22 service: No Current occupational status: disabled Physical Exam Vital Signs: Vital Signs: Last Vital Signs Temp 98.3 F 07/04/23 15:27 Pulse 83 07/04/23 15:27 Resp 16 07/04/23 15:27 BP 142/104 H 07/04/23 15:27 BMI result Body Mass Index 26.8 Vital signs have been reviewed and appear to be correct. Blood pressure elevated. Heart rate normal. Respiratory rate normal. Temperature normal. Oxygen saturation normal. Appearance: Alert. Post ictal. No acute distress. Head: Normal external exam. Normocephalic. Atraumatic. No Luis signs noted. No raccoon eyes noted Eyes: PERRLA. EOMI. Conjunctiva and sclera normal. Eyelids normal. ENT: TM's Normal. Pharynx normal. Uvula midline. Moist mucous membranes. No trismus noted. No drooling noted. No muffled voice noted. Neck: Normal inspection. Neck supple. FROM. No adenopathy. Thyroid Normal. No meningeal signs. No neck mass noted. CVS: Normal heart rate and rhythm. Heart sound normal. No murmurs noted. Pulses normal throughout. Respiratory: No respiratory distress. Painless inspiration. Breath sounds normal. No wheezes/rales/rhonchi noted. Chest nontender. No accessory muscle usage noted or decreased air movement noted. Abdomen: Soft and nontender. Bowel sounds normal in all 4 quadrants. No distention noted. No organomegaly noted. No visible injury noted. Back: No CVA tenderness. Full range of motion noted. Skin: Skin warm and dry. Normal skin color. Normal skin turgor. No rashes/lesions/lacerations noted. Extremities: No lower extremity edema. Extremities exhibit normal range of motion. Extremities nontender. Neuro: post ictal, 1 witnessed tonic clonic seizure during the exam. Cranial nerve exam: II-XII are grossly intact No motor deficit. No sensory deficit. Reflexes normal. Course Reevaluation(s) Reevaluation #1: 48-year-old male with known history of intractable seizure patient is taking Keppra (pending) and valproic acid ( 74.8 ) to control his seizure, came in from a residential after had total of 6 seizures the patient had another seizure during transportation witnessed by EMS 1 additional seizure in the emergency department while I was examining the patient patient received 2 mg of Ativan to control his seizure and also patient took 500 mg of Keppra to prevent further seizure, the case discussed with the hospitalist accepted by Dr. Lang. Time: 18:41 Medications Administered Discontinued Medications Generic Name Dose Route Start Last Admin Trade Name Freq PRN Reason Stop Dose Admin Levetiracetam 500 mg 07/04/23 17:14 07/04/23 17:43 Levetiracetam 500 Mg Tablet PO 07/04/23 17:15 500 mg ONCE ONE Administration Lorazepam 2 mg 07/04/23 16:14 07/04/23 16:27 Lorazepam 2 Mg/Ml Vial IVPUSH 07/04/23 16:15 2 mg ONCE ONE Administration Medical Decision Making Differential Diagnosis Differential Diagnoses: The differential diagnosis associated with the presentation includes ( Seizure, intracranial bleed, electrolyte abnormality, subtherapeutic anti seizure medication, severe anemia.) Admission/Observation Consideration of admission/observation: Escalation of care including admission/observation considered Consult Healthcare Provider Management of the patient was discussed with: Hospitalist (Dr. Lang) Lab Data MDM Lab Attestation statement: I reviewed the patient's lab results. 07/04/23 17:54 07/04/23 17:54 Labs: Lab Results 07/04/23 Range/Units 17:54 WBC 7.7 (4.8-10.8) X10*3/uL RBC 4.49 L (4.60-5.80) X10*6/uL Hgb 14.5 (14.0-18.0) g/dl Hct 42.1 (42.0-52.0) % MCV 93.8 (80.0-98.0) fL MCH 32.3 (27.0-33.0) pg MCHC 34.4 (31.0-36.0) g/dl RDW 13.3 (11.0-16.0) % Plt Count 164 (160-400) X10*3/uL MPV 10.5 (9.4-12.4) fL Immature Gran % (Auto) 0.5 H (0.0-0.4) % Neut % (Auto) 77.9 H (45-73) % Lymph % (Auto) 15.3 L (20-40) % [place] % (Auto) 6.0 (2-11) % Eos % (Auto) 0.0 (0-4) % Baso % (Auto) 0.3 (0-2) % Lymph # (Auto) 1.2 (1.2-4.9) X10*3/uL [place] # (Auto) 0.5 (0.1-1.2) X10*3/uL Eos # (Auto) 0.0 (0.0-0.4) X10*3/uL Baso # (Auto) 0.0 (0.0-0.2) X10*3/uL Abs Immat Gran (auto) 0.04 H (0.00-0.03) X10*3/uL Absolute Neuts (auto) 6.0 (2.0-8.3) x10*3/uL Absolute Nucleated RBC 0.000 (0.0-0.012) X10*3/uL Nucleated RBC % (auto) 0.0 (0.0-0.2) /100WBC Sodium 144 (135-145) mmol/L Potassium 4.0 (3.3-5.1) mmol/L Chloride 108 (96-108) mmol/L Carbon Dioxide 25 (22-29) mmol/L Anion Gap 15 (12-20) BUN 11 (9-16) mg/dL Creatinine 0.73 (0.5-1.4) mg/dL Estim Creat Clear Calc 114.1 Estimated GFR > 60 Random Glucose 94 (60-115) mg/dL Calcium 9.5 (8.4-10.2) mg/dL Lipase 22 (8-78) U/L Urine Color Yellow Urine Appearance Clear Urine pH 6.5 (5.0-9.0) Ur Specific [place] 1.025 (1.005-1.025) Urine Protein Negative (Neg-Trace) mg/dL Urine Glucose (UA) Negative (Negative) mg/dL Urine Ketones Trace (Negative) mg/dL Urine Blood Negative (Negative) Urine Nitrite Negative (Negative) Ur Leukocyte Esterase Negative (Negative) Valproic Acid 74.8 (50.0-100.0) mcg/mL Independent Interpretation I performed an independent interpretation of an: CT Scan ( Head:No acute intracranial abnormality including hemorrhage, mass effect, hydrocephalus, or acute territorial edematous infarction. ) Radiology Impression Discussion of test interpretation with radiology: I have reviewed the radiologist's reading. Chronic Conditions Patient?s care impacted by: Other ( Seizure) Critical Care Time Critical Care Time Critical Care Time: Yes Total Critical Care Time: 45 Attestation: I spent 45 minutes providing critical care service to the patient, this including time spent at the bedside to evaluate the patient, reassess the patient, monitoring vital signs, review labs, and radiographic studies, counseling the patient/family, discussing the case with consultants, disposition the patient. Discharge Plan Discharge Clinical Impression: Intractable seizure disorder Patient Disposition: Admitted As Inpatient
--- NOTE | 2023-07-04 16:22 | PC.NURSE ---
pt alert, sitting up in stretcher in no apparent distress. vss. grabbed t/w arm when standing near with strong senior wind turbine technician. seizure pads in place for pt safety. pt ambulated to bathroom with standby assist. ua collected. pt changed to hospital attire. pt stating he needs medicine now . plan of care ongoing.
[2023-07-04] MEDS: LORazepam 2 MG/ML VIAL IVPUSH (16:27)
[2023-07-04] MEDS: levETIRAcetam 500 MG TABLET PO (17:43)
[2023-07-04 17:58] LABS: MANUAL DIFF FLAG NO
[2023-07-04 17:59] LABS: Basophils Percent Auto 0.3 % (0-2); Hematocrit 42.1 % (42.0-52.0); Hemoglobin 14.5 g/dl (14.0-18.0); Imm Gran Abs Auto 0.04 X10*3/uL (0.00-0.03); Imm Gran Pct Auto 0.5 % (0.0-0.4); Lymphocytes Absolute Auto 1.2 X10*3/uL (1.2-4.9); Lymphocytes Percent Auto 15.3 % (20-40); Mean Corpuscular HGB Conc 34.4 g/dl (31.0-36.0); Mean Corpuscular Hemoglobin 32.3 pg (27.0-33.0); Mean Corpuscular Volume 93.8 fL (80.0-98.0); Mean Platelet Volume 10.5 fL (9.4-12.4); Monocytes Absolute Auto 0.5 X10*3/uL (0.1-1.2); Neutrophils Percent Auto 77.9 % (45-73); Platelet Count 164 X10*3/uL (160-400); Red Blood Count 4.49 X10*6/uL (4.60-5.80); Red Cell Distribution Width 13.3 % (11.0-16.0); White Blood Count 7.7 X10*3/uL (4.8-10.8)
[2023-07-04 18:01] LABS: Appearance Urine Clear; Color Urine Yellow; Glucose Urine UA Negative (Negative); Leukocyte Esterase Urine Negative (Negative); Nitrite Urine Negative (Negative); PH 6.5 (5.0-9.0); Specific Gravity - Urine 1.025 (1.005-1.025); Urine Blood Negative (Negative); Urine Ketones Trace mg/dL (Negative); Urine Protein Negative (Neg-Trace)
--- NOTE | 2023-07-04 18:10 | P.HPHOSP_ITS ---
History of Present Illness Date of Service: 07/04/23 Chief Complaint: Multiple breakthrough seizures This is a 48-year-old gentleman with past medical history significant for longstanding seizure disorder and cognitive daily following in oxycodone renew injury at brought to emergency room due to multiple episodes of seizure at skilled nursing, as per ED physician he had 6 with missed seizures at the skilled nursing and had 1 seizure during transportation by ambulance and he was witnessed to have 1 seizure by ED provider during his examination it was tonic clonic seizure lasting less than a minute, as per skilled nursing provider patient is compliant with his medications, there is no report of head injury or trauma, in the emergency room patient treated with 2 mg of Ativan and 1 dose of IV Keppra 500 mg ,at present patient is awake, alert and providing history that he had multiple seizures at the skilled nursing, denies nausea, no vomiting, no abdominal pain, no headache, no dizziness, workup in ED showed normal CT head, no acute intracranial abnormality, normal CBC and urinalysis ,bmp is pending. Review of Systems 2 Review of Systems: General no headache, no dizziness no fever chills. CVS no chest pain, no palpitation. Respiratory no cough, no sob. Gastrointestinal no nausea, no vomiting, no abdominal pain. no urgency, no frequency All other system reviewed and negative. [facility] Medical History (Updated 07/04/23 @ 18:37 by Sindy Lang MD) Intractable seizure disorder Intractable epilepsy Epileptic seizure Hyponatremia History of SIADH Seizure disorder Intellectual disability Anxiety disorder, unspecified Family History Other No family history of coronary artery disease Surgical History No pertinent past surgical history Social History Household Members: Other Household Members Other:: groop home Housing: House Housing Other:: skilled nursing Do you presently have visiting nurse or other home services: No Alcohol intake: never Patient Tobacco Use Status: Never used Tobacco e-Cigarette/Vaping Use: Never Used Advance Directives: Yes Advance Directives on File: Yes Advance Directives Date on File: 02/06/22 service: No Current occupational status: disabled Meds Allergies Allergy/AdvReac Type Severity Reaction Status Date / Time No Known Allergies Allergy Verified 03/04/23 21:06 [No Known Allergies*] Home Medications Medication Instructions Recorded Confirmed Last Taken Type cetirizine 10 mg tablet (Zyrtec) 10 mg PO DAILY PRN post nasal drip 12/31/21 03/11/23 06/12/22 History cholecalciferol (vitamin D3) 50 100 mcg PO DAILY 12/31/21 03/11/23 06/12/22 History mcg (2,000 unit) tablet (Vitamin D3) clonazepam 0.5 mg tablet 0.5 mg PO BID@1600,2000 12/31/21 03/11/23 06/12/22 History diclofenac sodium 1 % topical gel 1 g topical Q4H PRN Pain (Scale 12/31/21 03/11/23 06/12/22 History Score 4-6) docusate sodium 100 mg capsule 100 mg PO BID 12/31/21 03/11/23 06/12/22 History (Colace) multivitamin 1 tab PO DAILY 12/31/21 03/11/23 06/12/22 History omega 3-hdn-boh-fish oil 1,000 mg 1 cap PO DAILY 12/31/21 03/11/23 06/12/22 History (120 mg-180 mg) capsule (Fish Oil) risperidone 0.5 mg tablet 0.5 mg PO BID 12/31/21 03/11/23 06/12/22 History acetaminophen 325 mg tablet 650 mg PO Q6H PRN Pain 04/08/22 03/11/23 Unknown History (Tylenol) loperamide 2 mg tablet (Imodium 2 mg PO Q4H PRN Loose Stool 04/08/22 03/11/23 Unknown History A-D) clonidine HCl 0.1 mg tablet 0.1 mg PO DAILY PRN Agitation 06/12/22 03/11/23 Unknown History dextromethorphan-guaifenesin 10 10 ml PO Q4H PRN Congestion 06/12/22 03/11/23 Unknown History mg-200 mg/5 mL oral liquid clonazepam 0.5 mg tablet 1 mg PO DAILY 11/03/22 03/11/23 Unknown History calcium carbonate 400 mg calcium 1,000 mg PO DAILY 02/09/23 03/11/23 Unknown History (1,000 mg) chewable tablet (Tums Ultra) cenobamate 100 mg tablet (Xcopri) 100 mg PO DAILY 07/04/23 Unknown History cenobamate 50 mg tablet (Xcopri) 50 mg PO DAILY 07/04/23 Unknown History perampanel 2 mg tablet (Fycompa) 2 mg PO DAILY 07/04/23 Unknown History Physical Exam 2 Vital Signs and Narrative: Vital Signs: Last Vital Signs Temp 98.3 F 07/04/23 15:27 Pulse 83 07/04/23 15:27 Resp 16 07/04/23 15:27 BP 142/104 H 07/04/23 15:27 BMI result Body Mass Index 26.8 Const: Other: General awake alert answers questions appropriately, cooperative in no acute distress Anicteric sclera Neck no JVD. CVS regular rate rhythm, Respiratory lungs clear to auscultation, no respiratory distress, no wheeze, no rhonchi. Gastrointestinal abdomen soft, non tender, bowel sounds audible Extremities no edema. Neuro nonfocal ,moving all 4 extremity speech clear. Skin no rash Psych appropriate affect Results Labs 07/04/23 17:54 07/04/23 17:54 Labs: Laboratory Results - last 24 hr 07/04/23 17:54 MCV 93.8 MCH 32.3 MCHC 34.4 RDW 13.3 Plt Count 164 MPV 10.5 Immature Gran % (Auto) 0.5 H Neut % (Auto) 77.9 H Lymph % (Auto) 15.3 L [place] % (Auto) 6.0 Eos % (Auto) 0.0 Baso % (Auto) 0.3 Lymph # (Auto) 1.2 [place] # (Auto) 0.5 Eos # (Auto) 0.0 Baso # (Auto) 0.0 Abs Immat Gran (auto) 0.04 H Absolute Neuts (auto) 6.0 Absolute Nucleated RBC 0.000 Nucleated RBC % (auto) 0.0 Urine Color Yellow Urine Appearance Clear Urine pH 6.5 Ur Specific [place] 1.025 Urine Protein Negative Urine Glucose (UA) Negative Urine Ketones Trace Urine Blood Negative Urine Nitrite Negative Ur Leukocyte Esterase Negative Imaging Radiologist's Impressions: Impressions Head CT 07/04/23 17:14 IMPRESSION: No acute intracranial abnormality including hemorrhage, mass effect, hydrocephalus, or acute territorial edematous infarction. Assessment and Plan (1) Intractable seizure disorder: Status: Acute Plan 48-year-old past medical history of chronic intractable epilepsy from likely congenital or etiology presented to the hospital with multiple episodes of breakthrough tonic-clonic seizures. Breakthrough seizures with history of chronic intractable epilepsy. As per skilled nursing patient is compliant with medications Unclear etiology Therapeutic valproic acid level 74.8, Keppra level pending consult Neurology Continue home medication/ seizure precaution Patient awake alert will place on regular diet Spoke with patient's father Allen Anaya , he informed that patient's medications were changed [address] Holland and he was doing very well and had the longest time Without having breakthrough seizures up until today . Anxiety disorder continue home medication Full code DVT prophylaxis with Lovenox Patient will be admitted for 2 night inpatient hospitalization for treatment and further evaluation of intractable epilepsy with breakthrough seizures. Quality Stroke Does the patient have a stroke diagnosis?: No VTE Prior VTE?: No VTE Risk Level:: Medical - moderate - high VTE Device Contraindication: Treatment Not Indicated VTE Drug Contraindication: N/A - Med Ordered
[2023-07-04 18:16] LABS: Valproate 74.8 mcg/mL (50.0-100.0)
[2023-07-04 18:20] LABS: Anion Gap 15 (12-20); Blood Urea Nitrogen 11 mg/dL (9-16); Calcium 9.5 mg/dL (8.4-10.2); Carbon Dioxide 25 mmol/L (22-29); Chloride 108 mmol/L (96-108); Creatinine Clr Calc Pharmacy 114.1; Estimated Glomerular Filt Rate > 60; Glucose Random 94 mg/dL (60-115); Lipase 22 U/L (8-78); Sodium 144 mmol/L (135-145)
--- NOTE | 2023-07-04 18:46 | PC.NURSE ---
pt provided with phone to call dad and meal tray. resting quietly on stretcher in no apparent distress. seizure pads in place for pt safety. awaiting admit orders/bed assignment.
--- NOTE | 2023-07-04 18:56 | PHA.MEDREC ---
Addendum entered by Major Palacios RPh 07/05/23 07:46: Called father Allen regarding meds. Father had record of meds. Shows fycompa was lowered from 4 mg to 2 mg and then discontniued. Xcopri was changed from 50mg qam to 100mg qpm to take place of fycompa but also given at bedtime due to increased sedation. Patient still on keppra and depakote. Father to bring xcopri in from [facility]. He gave me a number for the nurse for [facility] ([phone]). I called to verify the above information with the [facility] joel Original Note: Pharmacy Consult ? Medication Reconciliation Pharmacy has completed the medication reconciliation. List from [facility] obtained ( with 2 different dates and meds). Contacted [facility] to verify seizure meds. I was told patient is no longer on fycompa, only takes xcopri 100 mg bedtime and depakote dose is 1000 mg bid. Left message for Pharmacist to follow up with [facility] in the AM to confirm these medications.
[2023-07-04 23:57] VITALS: BP 157/107; PULSE 82; RESP 16; TEMP 36.6; O2SAT 97
--- NOTE | 2023-07-05 01:02 | PC.NURSE ---
pt called for assistance; when this RN approached pt he states I just want to touch you. explained to pt this was inappropriate. he then states its not ok? again explained it was not ok. then asked pt if he needed assistance with anything else. he said no. a short while later another staff member rpt'd to this RN that he stopped them in [place] and requested to speak with me. when I approached pt he states he needs to use the bathroom. pt states that he needed to void. pt has been using the urinal at bedside w/ no issues since he came to the ER. instructed pt to please use the urinal. he states I can't. I need you to hold my penis. told pt this was inappropriate and I would not be assisting him. he states but i need you. this RN then walked away. informed discharge specialist of the above situation. pt now in hallway stretcher yelling I need help.
[2023-07-05 09:03] VITALS: BMI 24.9
[2023-07-05 09:14] LABS: Hematocrit 44.8 % (42.0-52.0); Hemoglobin 15.4 g/dl (14.0-18.0); Mean Corpuscular HGB Conc 34.4 g/dl (31.0-36.0); Mean Corpuscular Volume 93.1 fL (80.0-98.0); Mean Platelet Volume 10.2 fL (9.4-12.4); Platelet Count 172 X10*3/uL (160-400); Red Blood Count 4.81 X10*6/uL (4.60-5.80); Red Cell Distribution Width 13.2 % (11.0-16.0); White Blood Count 7.4 X10*3/uL (4.8-10.8)
[2023-07-05 09:29] LABS: Ammonia 28 umol/L (13-55)
[2023-07-05] MEDS: Multivitamin TABLET 1 TAB PO (09:38)
[2023-07-05] MEDS: clonazePAM 1 MG TABLET PO (09:38)
[2023-07-05] MEDS: levETIRAcetam 500 MG TABLET 1500 MG PO ×2 (09:38→20:46)
[2023-07-05] MEDS: Cholecalciferol (Vitamin D3) 25 MCG TABLET 100 MCG PO (09:39)
[2023-07-05] MEDS: Docusate Sodium 100 MG CAPSULE PO ×2 (09:39→20:46)
[2023-07-05] MEDS: risperiDONE 0.5 MG TABLET PO ×2 (09:39→20:47)
[2023-07-05] MEDS: Divalproex Sodium 500 MG TABLET.DR 1000 MG PO ×2 (09:39→20:46)
[2023-07-05 09:40] LABS: Alanine Aminotransferase 14 U/L (0-40); Albumin Level 4.1 g/dL (3.5-5.0); Alkaline Phosphatase 39 U/L (39-117); Anion Gap 14 (12-20); Aspartate Amino Transferase 19 U/L (5-37); Bilirubin Total 0.5 mg/dL (0.0-1.0); Blood Urea Nitrogen 11 mg/dL (9-16); Calcium 9.2 mg/dL (8.4-10.2); Carbon Dioxide 25 mmol/L (22-29); Chloride 106 mmol/L (96-108); Creatinine Clr Calc Pharmacy 118.9; Estimated Glomerular Filt Rate > 60; Glucose Random 91 mg/dL (60-115); Potassium 3.5 mmol/L (3.3-5.1); Sodium 141 mmol/L (135-145)
[2023-07-05] MEDS: 0.9 % Sodium Chloride Flush 3 ML SYRINGE IVFLUSH ×3 (09:43→20:47)
--- NOTE | 2023-07-05 11:40 | P.PNIM_ITS ---
Subjective Subjective Date of Service: 07/05/23 Interval History: no further seizures after having 7 at jail/during transport/ED had been seizure-free for 5 wk Review of Systems Review of Systems: Yes all other systems are reviewed and are negative Physical Exam 2 Vital Signs: Vital Signs: Last Vital Signs Temp 97.9 F 07/04/23 23:57 Pulse 82 07/04/23 23:57 Resp 16 07/04/23 23:57 BP 157/107 H 07/04/23 23:57 Pulse Ox 97 07/04/23 23:57 O2 Del Method Room Air 07/04/23 23:57 BMI result Body Mass Index 24.9 Gen: in no acute distress HEENT: sclera anicteric, moist mucus membranes Neck: supple Lungs: clear to auscultation bilaterally Heart: regular rate and rhythm, no murmurs Abd: soft, non-tender, non-distended Ext: no edema Skin: warm/well-perfused Neuro: alert and oriented x3, no focal findings Psych: appropriate affect Objective Data Active Medications Acetaminophen (Acetaminophen 325 Mg Tablet) 650 mg PO Q6H PRN PRN Reason: Pain, Mild (Pain Scale 1-3) Al Hydroxide/Mg Hydroxide (Magnesium Hydrox/Alum Hydrox 30 Ml Oral.Susp) 30 ml PO Q4H PRN PRN Reason: Heartburn/Nausea Calcium Carbonate (Calcium Carbonate 500 Mg Tablet) 1,000 mg PO DAILY [facility] Last Admin: 07/05/23 09:38 Dose: 1,000 mg Documented By: JENARO Clonazepam (Clonazepam 0.5 Mg Tablet) 0.5 mg PO BID@1600,2000 [facility] Clonazepam (Clonazepam 1 Mg Tablet) 1 mg PO DAILY [facility] Last Admin: 07/05/23 09:38 Dose: 1 mg Documented By: JENARO Clonidine HCl (Clonidine Hcl 0.1 Mg Tablet) 0.1 mg PO DAILY PRN; Protocol PRN Reason: Agitation Divalproex Sodium (Divalproex Sodium 500 Mg Tablet.) 1,000 mg PO BID [facility] Last Admin: 07/05/23 09:39 Dose: 1,000 mg Documented By: JENARO Docusate Sodium (Docusate Sodium 100 Mg Capsule) 100 mg PO DAILY PRN PRN Reason: Constipation Docusate Sodium (Docusate Sodium 100 Mg Capsule) 100 mg PO BID [facility] Last Admin: 07/05/23 09:39 Dose: 100 mg Documented By: JENARO Enoxaparin Sodium (Enoxaparin Sodium 40 Mg/0.4 Ml Syringe) 40 mg SUBCUT Q24H [facility] Last Admin: 07/04/23 20:58 Dose: Not Given Documented By: LEILA Non-Admin Reason: Patient Refused Guaifenesin/Dextromethorphan (Guaifenesin Dm 100/10/5 Ml 5 Ml Syrup) 10 ml PO Q4H PRN PRN Reason: Cough Levetiracetam (Levetiracetam 500 Mg Tablet) 1,500 mg PO BID [facility] Last Admin: 07/05/23 09:38 Dose: 1,500 mg Documented By: JENARO Loperamide HCl (Loperamide Hcl 2 Mg Capsule) 2 mg PO Q4H PRN PRN Reason: Loose Stool Loratadine (Loratadine 10 Mg Tablet) 10 mg PO DAILY PRN PRN Reason: post nasal drip Magnesium Hydroxide (Milk Of Magnesia 30 Ml Oral.Susp) 30 ml PO DAILY PRN PRN Reason: Constipation Melatonin (Melatonin 3 Mg Tablet) 3 mg PO BEDTIME PRN PRN Reason: Insomnia Multivitamins/Vitamin C (Multivitamin Tablet) 1 tab PO DAILY [facility] Last Admin: 07/05/23 09:38 Dose: 1 tab Documented By: JENARO Pt Own (Cenobamate [ Xcopri] 100 Mg Tablet) 100 mg PO DAILY@1999 [facility] Ondansetron HCl (Ondansetron Hcl 4 Mg/2 Ml Vial) 4 mg IVPUSH Q8H PRN PRN Reason: Nausea and Vomiting Risperidone (Risperidone 0.5 Mg Tablet) 0.5 mg PO BID [facility] Last Admin: 07/05/23 09:39 Dose: 0.5 mg Documented By: JENARO Sodium Chloride (0.9 % Sodium Chloride Flush 3 Ml Syringe) 3 ml IVFLUSH QSHIFT [facility] Last Admin: 07/05/23 09:43 Dose: 3 ml Documented By: JENARO Vitamin D (Cholecalciferol (Vitamin D3) 25 Mcg Tablet) 100 mcg PO DAILY [facility] Last Admin: 07/05/23 09:39 Dose: 100 mcg Documented By: JENARO Labs 07/05/23 08:59 07/05/23 08:59 Labs: Laboratory Results - last 24 hr 07/04/23 07/05/23 17:54 08:59 MCV 93.8 93.1 MCH 32.3 32.0 MCHC 34.4 34.4 RDW 13.3 13.2 Plt Count 164 172 MPV 10.5 10.2 Immature Gran % (Auto) 0.5 H Neut % (Auto) 77.9 H Lymph % (Auto) 15.3 L Hand % (Auto) 6.0 Eos % (Auto) 0.0 Baso % (Auto) 0.3 Lymph # (Auto) 1.2 Hand # (Auto) 0.5 Eos # (Auto) 0.0 Baso # (Auto) 0.0 Abs Immat Gran (auto) 0.04 H Absolute Neuts (auto) 6.0 Absolute Nucleated RBC 0.000 0.000 Nucleated RBC % (auto) 0.0 0.0 Anion Gap 15 14 Estim Creat Clear Calc 114.1 118.9 Estimated GFR > 60 > 60 Random Glucose 94 91 Calcium 9.5 9.2 Total Bilirubin 0.5 AST 19 ALT 14 Alkaline Phosphatase 39 Ammonia 28 Total Protein 7.0 Albumin 4.1 Lipase 22 Urine Color Yellow Urine Appearance Clear Urine pH 6.5 Ur Specific [place] 1.025 Urine Protein Negative Urine Glucose (UA) Negative Urine Ketones Trace Urine Blood Negative Urine Nitrite Negative Ur Leukocyte Esterase Negative Valproic Acid 74.8 Assessment and Plan (1) Intractable seizure disorder: Status: Acute Plan d2 48yo M with lifelong intractable epilepsy admitted for breakthrough generalized seizures, also has hx partial seizures breakthrough seizures - VPA level therapeutic, continue 1000 mg bid - levetiracetam level therapeutic, continue 1500 mg bid - continue cenobamate 100 mg qhs - Neuro consult pending mood disorder - continue clonidine, risperidone, clonazepam VTE ppx - LMWH dispo - eventual return to jail In my clinical judgment, the patient requires continued inpatient hospitalization for the following reasons: seizure workup and control Total time managing care of this patient today: 35 minutes. Quality Stroke Does the patient have a stroke diagnosis?: No VTE Prior VTE?: No VTE Risk Level:: Medical - moderate - high VTE Device Contraindication: Treatment Not Indicated VTE Drug Contraindication: N/A - Med Ordered
--- NOTE | 2023-07-05 11:43 | MHC.CM.PN ---
pt is from senior living according to his father the senior living will transport pt when dcd pt has 24 care and a rn that oversees his meds pts sabrina and sister are guardiand pt also has a hcp dc plan return to senior living
[2023-07-05 14:23] VITALS: BP 146/84; PULSE 81; RESP 18; TEMP 36.2; O2SAT 98
[2023-07-05] MEDS: clonazePAM 0.5 MG TABLET PO ×2 (15:43→20:46)
[2023-07-05 15:48] VITALS: BP 125/91; PULSE 96; RESP 18; TEMP 36; O2SAT 97
[2023-07-05] MEDS: Acetaminophen 325 MG TABLET 650 MG PO (18:18)
[2023-07-05 19:38] VITALS: BP 139/63; PULSE 81; RESP 18; TEMP 36.3; O2SAT 96
[2023-07-05 19:41] VITALS: BP 134/67; PULSE 93; RESP 18; TEMP 37.6; O2SAT 95
[2023-07-06 02:11] VITALS: BP 111/74; PULSE 67; RESP 16; TEMP 36.2; O2SAT 97
[2023-07-06 07:06] VITALS: BP 133/79; PULSE 65; RESP 20; TEMP 36.6; O2SAT 96
[2023-07-06] MEDS: Cholecalciferol (Vitamin D3) 25 MCG TABLET 100 MCG PO (07:28)
[2023-07-06] MEDS: 0.9 % Sodium Chloride Flush 3 ML SYRINGE IVFLUSH (07:28)
[2023-07-06] MEDS: levETIRAcetam 500 MG TABLET 1500 MG PO (07:28)
[2023-07-06] MEDS: risperiDONE 0.5 MG TABLET PO (07:29)
[2023-07-06] MEDS: Divalproex Sodium 500 MG TABLET.DR 1000 MG PO (07:29)
[2023-07-06] MEDS: Acetaminophen 325 MG TABLET 650 MG PO (07:29)
[2023-07-06] MEDS: clonazePAM 1 MG TABLET PO (07:30)
[2023-07-06] MEDS: Multivitamin TABLET 1 TAB PO (07:30)
--- NOTE | 2023-07-06 10:39 | P.DS_ITS ---
DS: Providers Provider Date of Service: 07/06/23 Date of admission: 07/04/23 18:04 Date of discharge: 07/06/23 Primary care physician: Morgan Rutherford MD DS: Diagnosis Discharge Diagnosis (1) Intractable seizure disorder: Status: Acute DS: Summary Hospital Course Hospital Course: From the history and physical by the admitting hospitalist, Sindy Lang, 07/04/23: This is a 48-year-old gentleman with past medical history significant for lo ngstanding seizure disorder and cognitive daily following in oxycodone renew injury at brought to emergency room due to multiple episodes of seizure at [facility], as per ED physician he had 6 with missed seizures at the [facility] and had 1 seizure during transportation by ambulance and he was witnessed to have 1 seizure by ED provider during his examination it was tonic clonic seizure lasting less than a minute, as per [facility] provider patient is compliant with his medications, there is no report of head injury or trauma, in the emergency room patient treated with 2 mg of Ativan and 1 dose of IV Keppra 500 mg ,at present patient is awake, alert and providing history that he had multiple seizures at the [facility], denies nausea, no vomiting, no abdominal pain, no headache, no dizziness, workup in ED showed normal CT head, no acute intracranial abnormality, normal CBC and urinalysis ,bmp is pending. 48yo M with lifelong intractable epilepsy admitted for breakthrough generalized seizures, also has hx partial seizures. He was admitted to the hospitalist service and did not have any further seizures. I discussed his case with his neurologist, Dr Agata Holland, who recommended no changes to his antiepileptic regimen at this point. Until this episode, he had enjoyed a 5-week seizure-free interval, which is a marked improvement for him. He should follow-up with Dr Yumiko mayes within a few weeks. Time Attestation Total time managing care of this patient today: 35 mintues. Discharge coordination time: Greater than 30 minutes Quality: Safe Use of Opioids Does Pt have an Active Cancer Diagnosis on the Problem List?: No Quality: Stroke Does the patient have a stroke diagnosis?: No Physical Exam Vital Signs: Vital Signs: Last Vital Signs Temp 97.8 F 07/06/23 07:06 Pulse 65 07/06/23 07:06 Resp 20 07/06/23 07:06 BP 133/79 07/06/23 07:06 Pulse Ox 96 07/06/23 07:06 O2 Del Method Room Air 07/06/23 07:06 BMI result Body Mass Index 24.9 Gen: in no acute distress HEENT: sclera anicteric, moist mucus membranes Neck: supple Lungs: clear to auscultation bilaterally Heart: regular rate and rhythm, no murmurs Abd: soft, non-tender, non-distended Ext: no edema Skin: warm/well-perfused Neuro: alert and oriented x3, no focal findings Psych: appropriate affect DS: Data Data Completed and Pending Completed studies during hospitalization [Text1]: Laboratory Results WBC 7.4 X10*3/uL (4.8-10.8) 07/05/23 08:59 RBC 4.81 X10*6/uL (4.60-5.80) 07/05/23 08:59 Hgb 15.4 g/dl (14.0-18.0) 07/05/23 08:59 Hct 44.8 % (42.0-52.0) 07/05/23 08:59 MCV 93.1 fL (80.0-98.0) 07/05/23 08:59 MCH 32.0 pg (27.0-33.0) 07/05/23 08:59 MCHC 34.4 g/dl (31.0-36.0) 07/05/23 08:59 RDW 13.2 % (11.0-16.0) 07/05/23 08:59 Plt Count 172 X10*3/uL (160-400) 07/05/23 08:59 MPV 10.2 fL (9.4-12.4) 07/05/23 08:59 Immature Gran % (Auto) 0.5 % (0.0-0.4) H 07/04/23 17:54 Neut % (Auto) 77.9 % (45-73) H 07/04/23 17:54 Lymph % (Auto) 15.3 % (20-40) L 07/04/23 17:54 [place] % (Auto) 6.0 % (2-11) 07/04/23 17:54 Eos % (Auto) 0.0 % (0-4) 07/04/23 17:54 Baso % (Auto) 0.3 % (0-2) 07/04/23 17:54 Lymph # (Auto) 1.2 X10*3/uL (1.2-4.9) 07/04/23 17:54 [place] # (Auto) 0.5 X10*3/uL (0.1-1.2) 07/04/23 17:54 Eos # (Auto) 0.0 X10*3/uL (0.0-0.4) 07/04/23 17:54 Baso # (Auto) 0.0 X10*3/uL (0.0-0.2) 07/04/23 17:54 Abs Immat Gran (auto) 0.04 X10*3/uL (0.00-0.03) H 07/04/23 17:54 Absolute Neuts (auto) 6.0 x10*3/uL (2.0-8.3) 07/04/23 17:54 Absolute Nucleated RBC 0.000 X10*3/uL (0.0-0.012) 07/05/23 08:59 Nucleated RBC % (auto) 0.0 /100WBC (0.0-0.2) 07/05/23 08:59 Sodium 141 mmol/L (135-145) 07/05/23 08:59 Potassium 3.5 mmol/L (3.3-5.1) 07/05/23 08:59 Chloride 106 mmol/L (96-108) 07/05/23 08:59 Carbon Dioxide 25 mmol/L (22-29) 07/05/23 08:59 Anion Gap 14 (12-20) 07/05/23 08:59 BUN 11 mg/dL (9-16) 07/05/23 08:59 Creatinine 0.70 mg/dL (0.5-1.4) 07/05/23 08:59 Estim Creat Clear Calc 118.9 07/05/23 08:59 Estimated GFR > 60 07/05/23 08:59 Random Glucose 91 mg/dL (60-115) 07/05/23 08:59 Calcium 9.2 mg/dL (8.4-10.2) 07/05/23 08:59 Total Bilirubin 0.5 mg/dL (0.0-1.0) 07/05/23 08:59 AST 19 U/L (5-37) 07/05/23 08:59 ALT 14 U/L (0-40) 07/05/23 08:59 Alkaline Phosphatase 39 U/L (39-117) 07/05/23 08:59 Ammonia 28 umol/L (13-55) 07/05/23 08:59 Total Protein 7.0 g/dL (6.5-8.0) 07/05/23 08:59 Albumin 4.1 g/dL (3.5-5.0) 07/05/23 08:59 Lipase 22 U/L (8-78) 07/04/23 17:54 Urine Color Yellow 07/04/23 17:54 Urine Appearance Clear 07/04/23 17:54 Urine pH 6.5 (5.0-9.0) 07/04/23 17:54 Ur Specific [place] 1.025 (1.005-1.025) 07/04/23 17:54 Urine Protein Negative mg/dL (Neg-Trace) 07/04/23 17:54 Urine Glucose (UA) Negative mg/dL (Negative) 07/04/23 17:54 Urine Ketones Trace mg/dL (Negative) 07/04/23 17:54 Urine Blood Negative (Negative) 07/04/23 17:54 Urine Nitrite Negative (Negative) 07/04/23 17:54 Ur Leukocyte Esterase Negative (Negative) 07/04/23 17:54 Valproic Acid 74.8 mcg/mL (50.0-100.0) 07/04/23 17:[address] 07/04/23 17:14 IMPRESSION: No acute intracranial abnormality including hemorrhage, mass effect, hydrocephalus, or acute territorial edematous infarction. Discharge Plan Discharge Anticipated Discharge Date/Time: 07/06/23 10:34 Patient Disposition: Xfer Other Discharge Diagnosis: breakthrough seizure Referrals: SNF [Other] - 1 Week Eric Holland MD [Physician] - 2 Weeks Morgan Rutherford MD [Primary Care Provider] - 1 Week Discharge Medications: Continued multivitamin Tablet 1 tab PO DAILY cetirizine [Zyrtec] 10 mg Tablet 10 mg PO DAILY PRN (Reason: post nasal drip) clonazepam 0.5 mg tablet 0.5 mg PO BID@1600,2000 docusate sodium [Colace] 100 mg Capsule 100 mg PO BID risperidone 0.5 mg tablet 0.5 mg PO BID diclofenac sodium 1 % Gel 1 ea TOPICAL Q6H PRN (Reason: Pain (Scale Score 4-6)) cholecalciferol (vitamin D3) [Vitamin D3] 50 mcg (2,000 unit) Tablet 100 mcg PO DAILY omega 7-rqq-sib-fish oil [Fish Oil] 1,000 mg (120 mg-180 mg) Capsule 1 cap PO DAILY acetaminophen [Tylenol] 325 mg Tablet 650 mg PO Q6H PRN (Reason: Pain) loperamide [Imodium A-D] 2 mg Tablet 2 mg PO Q4H PRN (Reason: Loose Stool) Rx Instructions: administer after each loose stool until symptoms controlled; do not exceed 8 mg per 24 hrs clonidine HCl 0.1 mg Tablet 0.1 mg PO DAILY PRN (Reason: Agitation) levetiracetam 500 mg Tablet 1,500 mg PO BID Qty: 180 0RF clonazepam 0.5 mg tablet 1 mg PO DAILY divalproex 500 mg Tablet,Delayed Release (Dr/Ec) 1,000 mg PO BID Qty: 60 0RF Xcopri 100 mg tablet 100 mg PO BEDTIME dextromethorphan-guaifenesin [Karena-Tussin DM] 10-100 mg/5 mL Liquid 10 ml PO Q4H PRN (Reason: Cough) calcium carbonate 500 mg calcium (1,250 mg) Tablet 1,000 mg PO DAILY Discharge Orders: Discharge Order (Routine); Ordered 07/06/23 Ordered By: Lila Meyers Diet: Advance to usual diet Activity on Discharge: As tolerated Stand Alone Forms: Patient Portal Discharge page Care Plan Goals: seizure control Health Concerns: breakthrough seizure Plan of Treatment: continue divalproex 1000 mg twice daily PLUS levetiracetam 1500 mg twice daily PLUS cenobamate 100 mg at bedtime PLUS clonazepam 1 mg in the morning/0.5 mg in the afternoon/0.5 mg at bedtime follow up with neurologist Dr Holland in 2 weeks avoid sleep deprivation Please follow up with your primary care doctor within 1 week. Return to the hospital if you experience recurrent or worsening symptoms. Assessment: See Discharge Summary.
--- NOTE | 2023-07-06 10:44 | MHC.CM.PN ---
PT RETUNING TO [facility] TODAY AT 12:30 ,[facility] CONTACTED AND WILL TRANSPORT PT
--- NOTE | 2023-07-06 10:47 | MHC.CM.PN ---
pts father belinda [phone] left message re dc today
[2023-07-07 16:08] LABS: Levetiracetam Keppra 26.7 mcg/mL (6.0-46.0)
== END 2023-07-06 12:56 | disposition other institution (70) | DRG 101 ==
LOC: HO.ED 16:07 → HO.EDOVER 18:15 → HO.S3 07-05 06:28
PROVIDERS: Admitting Provider Hospitalist; Emergency Provider Emergency Medicine; PCP Family Medicine; Visit Provider Family Medicine
DX: G40.919 Epilepsy, unspecified, intractable, without status epilepticus (principal); F41.9 Anxiety disorder, unspecified; F79 Unspecified intellectual disabilities; Z79.899 Other long term (current) drug therapy
CPT/HCPCS: 36415; 70450; 80048; 80053; 80164; 80177; 81003; 82140; 83690; 85025; 85027; 99285; J2060

== ENCOUNTER → 2023-07-04 18:04 | Outpatient (BNV) | payer MEDICARE, MEDICAID, SELFPAY | PROVIDERS: Admitting Provider Hospitalist; Emergency Provider Emergency Medicine; PCP Family Medicine; Visit Provider Hospitalist | DX: G40.919 Epilepsy, unspecified, intractable, without status epilepticus (principal) | CPT/HCPCS: 99223; 99232; 99239 ==

== ENCOUNTER 2023-09-10 18:01 | Inpatient (IN) | payer MEDICARE, MEDICAID, SELFPAY ==
[2023-09-10 18:20] VITALS: BP 145/88; BP 154/97; PULSE 67; PULSE 96; RESP 18; TEMP 36.4; O2SAT 100; O2SAT 96; BMI 42.8
--- NOTE | 2023-09-10 18:36 | PC.NURSE ---
late entry sz at 1834 aprox 15-20 seconds. started with yelling, threw phone adn then grabbed side rails and began shaking, BUE. no inuries noted. no meds given. LOIS Alvarado to bedside. no incontinence. pt is at baseline mentation following
--- NOTE | 2023-09-10 18:37 | ED.GENADULT ---
HPI - General Adult General Chief complaint: Seizure Stated complaint: MULTIPLE WITNESSED SEIZURES 45 SECONDS-1 MIN Time Seen by Provider: 09/10/23 18:35 Source: patient and RN notes reviewed Limitations: other (Cognitive delay) History of Present Illness HPI narrative: 48-year-old male who has a long history of seizure disorder, currently on Keppra, presents from long[facility]term with intractable seizures. According to long-term staff, the patient had 5 seizures prior to arrival. Each lasted approximately 30-45 seconds. This is apparently typical for the patient. He has a history of tonic-clonic seizures as well as partial seizures. EMS administered Versed 2 mg. Patient was postictal on arrival however returned to baseline rather quickly. Currently the patient has no physical complaints. He is compliant with his medications. Related Data Home Medications Medication Instructions Recorded Confirmed cetirizine 10 mg tablet (Zyrtec) 10 mg PO DAILY PRN post nasal drip 12/31/21 07/04/23 cholecalciferol (vitamin D3) 50 100 mcg PO DAILY 12/31/21 07/04/23 mcg (2,000 unit) tablet (Vitamin D3) clonazepam 0.5 mg tablet 0.5 mg PO BID@1600,2000 12/31/21 09/11/23 diclofenac sodium 1 % topical gel 1 ea topical Q6H PRN Pain (Scale 12/31/21 07/04/23 Score 4-6) docusate sodium 100 mg capsule 100 mg PO BID 12/31/21 07/04/23 (Colace) multivitamin 1 tab PO DAILY 12/31/21 07/04/23 omega 0-log-xwu-fish oil 1,000 mg 1 cap PO DAILY 12/31/21 07/04/23 (120 mg-180 mg) capsule (Fish Oil) risperidone 0.5 mg tablet 0.5 mg PO BID 12/31/21 07/04/23 acetaminophen 325 mg tablet 650 mg PO Q6H PRN Pain 04/08/22 07/04/23 (Tylenol) loperamide 2 mg tablet (Imodium 2 mg PO Q4H PRN Loose Stool 04/08/22 07/04/23 A-D) clonidine HCl 0.1 mg tablet 0.1 mg PO DAILY PRN Agitation 06/12/22 07/04/23 clonazepam 0.5 mg tablet 1 mg PO DAILY 11/03/22 07/04/23 calcium carbonate 500 mg calcium 1,000 mg PO DAILY 07/04/23 07/04/23 (1,250 mg) tablet cenobamate 100 mg tablet (Xcopri) 100 mg PO BEDTIME 07/04/23 07/04/23 dextromethorphan-guaifenesin 10 10 ml PO Q4H PRN Cough 07/04/23 07/04/23 mg-100 mg/5 mL oral liquid (Karena-Tussin DM) divalproex 500 mg tablet,delayed mg PO BID 09/10/23 release cenobamate 100 mg tablet (Xcopri) 100 mg PO BEDTIME 09/11/23 09/11/23 divalproex 500 mg tablet,delayed 1,000 mg PO BID 09/11/23 09/11/23 release risperidone 0.5 mg tablet 0.5 mg PO BID 09/11/23 09/11/23 Previous Rx's Medication Instructions Recorded levetiracetam 500 mg tablet 1,500 mg (3 x 500 mg) PO BID #180 03/04/22 tabs divalproex 500 mg tablet,delayed 1,000 mg (2 x 500 mg) PO BID #60 03/12/23 release tabs Allergies Allergy/AdvReac Type Severity Reaction Status Date / Time No Known Allergies Allergy Verified 09/10/23 18:20 [No Known Allergies*] Review of Systems Cardiovascular: Cardiovascular: Denies chest pain Respiratory: Respiratory: Denies cough Neurologic: Reports convulsions and Reports seizure-like activity [facility] Past Medical History Source: old records reviewed and nursing notes reviewed Medical History Intractable seizure disorder Intractable epilepsy Epileptic seizure Hyponatremia History of SIADH Seizure disorder Intellectual disability Anxiety disorder, unspecified Surgical History No pertinent past surgical history Family History Family History Other No family history of coronary artery disease Social History Social History Household Members: Other Household Members Other:: long-term. Housing: Other Housing Other:: long-term. Do you presently have visiting nurse or other home services: No Alcohol intake: never Patient Tobacco Use Status: Never used Tobacco Smoked in Last 30 Days: No e-Cigarette/Vaping Use: Never Used Use of substances other than those prescribed or required for medical reasons: No Advance Directives: Yes Advance Directives on File: Yes Advance Directives Date on File: 02/06/22 service: No Current occupational status: disabled Physical Exam ED Vital Signs: Vital Signs - 24 hr 09/10/23 18:20 09/10/23 18:44 09/10/23 20:27 Temperature 97.5 F 98.4 F Pulse Rate 67 83 67 Respiratory Rate 18 18 16 Blood Pressure 154/97 H 141/94 H 129/85 Pulse Oximetry 100 97 99 Oxygen Delivery Method Room Air Room Air Room Air 09/10/23 21:26 09/10/23 21:58 09/10/23 22:26 Temperature 98.0 F Pulse Rate 73 72 78 Respiratory Rate 12 18 17 Blood Pressure 134/90 H 126/91 H 134/92 H Pulse Oximetry 98 97 99 Oxygen Delivery Method Room Air Room Air Room Air BMI result Body Mass Index 42.8 Const Other: Patient is awake and alert Orientation/consciousness: oriented to person Resp Auscultation: clear to auscultation bilaterally Cardio Rate: regular rate GI Other: Abdomen is soft and nontender Neuro General: oriented to person Course Course Course Narrative: 6:40 p.m. I was called to the bedside by nursing staff who witnessed the patient having seizure-like activity. They report that this lasted approximately 30 seconds. Patient appeared mildly postictal upon my arrival. There was no incontinence. He was able to follow commands. He is awake and alert without any airway compromise. Patient will be given IV Ativan as well as additional dose of Keppra. It appears that the patient may have also been on Depakote however unable to confirm this at this time. 8:30 p.m. patient had an additional seizure-like activity witnessed by staff. This appears to be partial seizure. Patient does have a history of this. Given that the patient continues to have seizures he may benefit from additional medications or medication adjustment. Discussed with Dr. Kc who agrees with plan. 10:00 p.m. patient's medication list has been located. Appears that the patient is currently on Depakote ER 1000 mg b.i.d., Keppra 1500 mg b.i.d., Xcopri 100 mg q.h.s. Spoke with Dr. Avina, covering for Dr. Holland. Increase the patient's Keppra to 2000 mg b.i.d. Discussed with Dr. Hanley for transfer of care. Medications Administered Discontinued Medications Generic Name Dose Route Start Last Admin Trade Name Mario PRN Reason Stop Dose Admin Acetaminophen 650 mg 09/10/23 23:27 09/10/23 23:33 Acetaminophen 325 Mg Tablet PO 09/10/23 23:28 650 mg ONCE ONE Administration Levetiracetam 1,000 mg in 100 mls @ 400 mls/hr 09/10/23 21:17 09/10/23 21:59 Keppra IV 09/10/23 21:31 Infused ONCE ONE Infusion Sodium Chloride 1,000 mls @ 999 mls/hr 09/10/23 22:45 09/10/23 22:53 Ns IV 09/10/23 23:45 999 mls/hr .Q1H1M AUBREY Administration Levetiracetam 500 mg in 100 mls @ 400 mls/hr 09/10/23 22:50 09/10/23 23:21 Keppra IV 09/10/23 23:04 Infused ONCE ONE Infusion Levetiracetam 500 mg 09/10/23 19:19 09/10/23 19:28 Levetiracetam 500 Mg Tablet PO 09/10/23 19:20 500 mg ONCE ONE Administration Lorazepam 1 mg 09/10/23 18:37 09/10/23 18:45 Lorazepam 2 Mg/Ml Vial IVPUSH 09/10/23 18:38 1 mg ONCE ONE Administration Medical Decision Making Medical Decision Making MDM Narrative: 48-year-old male who has a long history of seizures, currently on seizure medications with breakthrough seizures at a long-term. Check labs. Medications. Differential Diagnosis Differential Diagnoses: The differential diagnosis associated with the presentation includes Epilepsy Breakthrough seizures Metabolic abnormality Partial seizure Admission/Observation Consideration of admission/observation: Escalation of care including admission/observation considered Lab Data 09/10/23 19:33 09/10/23 19:33 Labs: Lab Results 09/10/23 09/10/23 Range/Units 19:33 22:53 WBC 5.7 (4.8-10.8) X10*3/uL RBC 4.06 L (4.60-5.80) X10*6/uL Hgb 13.4 L (14.0-18.0) g/dl Hct 39.1 L (42.0-52.0) % MCV 96.3 (80.0-98.0) fL MCH 33.0 (27.0-33.0) pg MCHC 34.3 (31.0-36.0) g/dl RDW 13.0 (11.0-16.0) % Plt Count 170 (160-400) X10*3/uL MPV 10.7 (9.4-12.4) fL Immature Gran % (Auto) 0.4 (0.0-0.4) % Neut % (Auto) 65.0 (45-73) % Lymph % (Auto) 23.6 (20-40) % [place] % (Auto) 10.4 (2-11) % Eos % (Auto) 0.2 (0-4) % Baso % (Auto) 0.4 (0-2) % Lymph # (Auto) 1.3 (1.2-4.9) X10*3/uL [place] # (Auto) 0.6 (0.1-1.2) X10*3/uL Eos # (Auto) 0.0 (0.0-0.4) X10*3/uL Baso # (Auto) 0.0 (0.0-0.2) X10*3/uL Abs Immat Gran (auto) 0.02 (0.00-0.03) X10*3/uL Absolute Neuts (auto) 3.7 (2.0-8.3) x10*3/uL Absolute Nucleated RBC 0.000 (0.0-0.012) X10*3/uL Nucleated RBC % (auto) 0.0 (0.0-0.2) /100WBC Sodium 143 (135-145) mmol/L Potassium 4.0 (3.3-5.1) mmol/L Chloride 109 H (96-108) mmol/L Carbon Dioxide 26 (22-29) mmol/L Anion Gap 12 (12-20) BUN 12 (9-16) mg/dL Creatinine 0.68 (0.5-1.4) mg/dL Estim Creat Clear Calc 123.5 Estimated GFR > 60 Random Glucose 99 (60-115) mg/dL Calcium 9.5 (8.4-10.2) mg/dL Magnesium 1.8 (1.6-2.6) mg/dL Valproic Acid 42.2 L (50.0-100.0) mcg/mL Critical Care Time Critical Care Time Critical Care Time: Yes Total Critical Care Time: 45 Attestation: I spent 45 minutes providing critical care service to the patient, this including time spent at the bedside to evaluate the patient, reassess the patient, monitoring vital signs, review labs, and radiographic studies, counseling the patient/family, discussing the case with consultants, disposition the patient. Discharge Plan Discharge Clinical Impression: Intractable seizure disorder Patient Disposition: Admitted As Inpatient
[2023-09-10 18:44] VITALS: BP 141/94; PULSE 83; RESP 18; O2SAT 97
[2023-09-10] MEDS: LORazepam 2 MG/ML VIAL 1 MG IVPUSH (18:45)
[2023-09-10] MEDS: levETIRAcetam 500 MG TABLET PO (19:28)
[2023-09-10 19:37] LABS: MANUAL DIFF FLAG NO
[2023-09-10 19:40] LABS: Basophils Percent Auto 0.4 % (0-2); Eosinophils Percent Auto 0.2 % (0-4); Hematocrit 39.1 % (42.0-52.0); Hemoglobin 13.4 g/dl (14.0-18.0); Imm Gran Abs Auto 0.02 X10*3/uL (0.00-0.03); Imm Gran Pct Auto 0.4 % (0.0-0.4); Lymphocytes Absolute Auto 1.3 X10*3/uL (1.2-4.9); Lymphocytes Percent Auto 23.6 % (20-40); Mean Corpuscular HGB Conc 34.3 g/dl (31.0-36.0); Mean Corpuscular Volume 96.3 fL (80.0-98.0); Mean Platelet Volume 10.7 fL (9.4-12.4); Monocytes Absolute Auto 0.6 X10*3/uL (0.1-1.2); Monocytes Percent Auto 10.4 % (2-11); Neutrophils Absolute Auto 3.7 x10*3/uL (2.0-8.3); Platelet Count 170 X10*3/uL (160-400); Red Blood Count 4.06 X10*6/uL (4.60-5.80); White Blood Count 5.7 X10*3/uL (4.8-10.8)
[2023-09-10 19:57] LABS: Anion Gap 12 (12-20); Blood Urea Nitrogen 12 mg/dL (9-16); Calcium 9.5 mg/dL (8.4-10.2); Carbon Dioxide 26 mmol/L (22-29); Chloride 109 mmol/L (96-108); Creatinine Clr Calc Pharmacy 123.5; Estimated Glomerular Filt Rate > 60; Glucose Random 99 mg/dL (60-115); Magnesium 1.8 mg/dL (1.6-2.6); Sodium 143 mmol/L (135-145)
[2023-09-10 20:27] VITALS: BP 129/85; PULSE 67; RESP 16; TEMP 36.9; O2SAT 99
--- NOTE | 2023-09-10 21:24 | PC.NURSE ---
sz activity as before lasting aprox 30 seconds. started with yelling then shaking and wasnot able to respond. HR jumped to 160. Provider aware. was not postictal. using remote afterwards and axox3.
[2023-09-10 21:26] VITALS: BP 134/90; PULSE 73; RESP 12; TEMP 36.7; O2SAT 98
[2023-09-10] MEDS: levETIRAcetam in NaCl (iso-os) 1,000 MG/100 ML PIGGYBACK 400 MG IV (21:44)
[2023-09-10 21:58] VITALS: BP 126/91; PULSE 72; RESP 18; O2SAT 97
--- NOTE | 2023-09-10 22:19 | MHC.EDTECH ---
Patient used urinal and split it on the bed. The patient was unaware he had a BM. This tech cleaned up the patient and changed the bedding. Once he was all set, gave him a boost and repositioned. Gave him a warm blanket. He is all set at this time.
[2023-09-10 22:26] VITALS: BP 134/92; PULSE 78; RESP 17; O2SAT 99
--- NOTE | 2023-09-10 22:41 | PC.NURSE ---
father called with patient but no response. intent was to give update on plan.
--- NOTE | 2023-09-10 22:41 | PC.NURSE ---
in past 30 minutes pt had what looked like the beginning of a sz, grabbed for railing clinical counselor and announced that they didn't feel well. But activity never progressed to shaking or decreased responsiveness, no shouting and no tachycardia. Hospitalist was present for one such episode.
[2023-09-10] MEDS: 0.9 % Sodium Chloride 1,000 ML 999 ML IV (22:53)
[2023-09-10] MEDS: levETIRAcetam in NaCl (iso-os) 500 MG/100 ML PIGGYBACK 400 MG IV (23:06)
[2023-09-10 23:26] LABS: Valproate 42.2 mcg/mL (50.0-100.0)
[2023-09-10] MEDS: Acetaminophen 325 MG TABLET 650 MG PO (23:33)
[2023-09-11] VITALS (8 sets, daily range): BP systolic 110–146; BP diastolic 72–101; PULSE 59–82; RESP 20; TEMP 35.5–36.8; O2SAT 99–100
[2023-09-11] MEDS: clonazePAM 0.5 MG TABLET PO ×3 (00:30→20:26)
[2023-09-11] MEDS: Divalproex Sodium 500 MG TABLET.DR 1000 MG PO ×3 (00:30→20:25)
[2023-09-11] MEDS: risperiDONE 0.5 MG TABLET PO ×3 (00:30→20:26)
[2023-09-11] MEDS: 0.9 % Sodium Chloride Flush 3 ML SYRINGE IVFLUSH ×4 (00:30→20:26)
--- NOTE | 2023-09-11 01:09 | PC.NURSE ---
Update given to pts father Allen, father states he will bring pts Xcopri medication that is not formulary here, later this morning.
--- NOTE | 2023-09-11 01:29 | P.HPHOSP_ITS ---
History of Present Illness Date of Service: 09/10/23 Attending physician on admission: Vivek Oconnell Chief Complaint: Seizures Chase Anaya is a 44-year-old man with past medical history significant for seizure disorder on Keppra, Depakote and Xcopri, anxiety and intellectual disability was brought to the emergency department due to multiple seizures weakness by [facility] staff. Patient had a few episodes of seizures in the emergency department. I actually witnessed one episode myself wire was evaluated the patient. It was a brief tonic seizure patient returned to baseline almost immediately. Patient did not report any pain or any other symptoms such as shortness of breath, nausea or vomiting. In the ED, he was found to have stable vital signs. Blood workup showed no leukocytosis. There are no significant electrolyte imbalances. Renal function is normal. Valproic acid are low. ED tx: Ativan 3 mg IV (total), Keppra 2 g total (400 mg p.o. + 1500 mg IV), NS 1L bolus. Review of Systems 2 Review of Systems: Yes Unobtainable due to mental status [facility] Medical History (Updated 09/11/23 @ 04:20 by Vivek Oconnell MD) Intractable seizure disorder Intractable epilepsy Epileptic seizure Hyponatremia History of SIADH Seizure disorder Intellectual disability Anxiety disorder, unspecified Family History Other No family history of coronary artery disease Surgical History No pertinent past surgical history Social History Household Members: Other Household Members Other:: [facility]. Housing: Other Housing Other:: [facility]. Do you presently have visiting nurse or other home services: No Alcohol intake: never Patient Tobacco Use Status: Never used Tobacco Smoked in Last 30 Days: No e-Cigarette/Vaping Use: Never Used Use of substances other than those prescribed or required for medical reasons: No Advance Directives: Yes Advance Directives on File: Yes Advance Directives Date on File: 02/06/22 service: No Current occupational status: disabled Meds Allergies Allergy/AdvReac Type Severity Reaction Status Date / Time No Known Allergies Allergy Verified 09/10/23 18:20 [No Known Allergies*] Active Medications: Current Medications Acetaminophen (Acetaminophen 325 Mg Tablet) 650 mg PO Q6H PRN PRN Reason: Pain, Mild (Pain Scale 1-3) Clonazepam (Clonazepam 0.5 Mg Tablet) 0.5 mg PO BID@1600,2000 [facility] Last Admin: 09/11/23 00:30 Dose: 0.5 mg Divalproex Sodium (Divalproex Sodium 500 Mg Tablet.) 1,000 mg PO BID [facility] Last Admin: 09/11/23 00:30 Dose: 1,000 mg Levetiracetam (Keppra) 1,500 mg in 100 mls @ 400 mls/hr IV Q12H [facility] Non-Formulary Medication (Cenobamate [Xcopri]) 100 mg PO BEDTIME [facility] Risperidone (Risperidone 0.5 Mg Tablet) 0.5 mg PO BID [facility] Last Admin: 09/11/23 00:30 Dose: 0.5 mg Sodium Chloride (0.9 % Sodium Chloride Flush 3 Ml Syringe) 3 ml IVFLUSH QSHIFT [facility] Last Admin: 09/11/23 00:30 Dose: 3 ml Home medications list (Facility List): Risperidone 0.5 mg p.o. b.i.d. Clonidine 0.1 mg p.o. daily as needed tantrums, sweating, agitation Depakote DR 100 mg p.o. twice day Levetiracetam 1500 mg p.o. b.i.d. Xcopri-Control 100 mg p.o. bedtime Calcium carbonate 500 mg 2 tablets every morning Multivitamins p.o. daily Docusate sodium 100 mg twice daily Clonidine 1 mg p.o. daily Clonidine 0.5 mg twice daily [place] 1000 mg p.o. daily Imodium 2 mg p.o. every 4 hours as needed loose stools Diclofenac 1% gel every 6 hours as needed Ensure 3 times with meals Karena-Tussin DM 20/200 mg/10 mL every 4 hours as needed for cough Tylenol 650 mg every 6 hours p.r.n. pain Zyrtec 10 mg p.o. as needed daily Vitamin D3 100 mcg every morning Home Medications Medication Instructions Recorded Confirmed Last Taken Type cetirizine 10 mg tablet (Zyrtec) 10 mg PO DAILY PRN post nasal drip 12/31/21 07/04/23 06/12/22 History cholecalciferol (vitamin D3) 50 100 mcg PO DAILY 12/31/21 07/04/23 06/12/22 History mcg (2,000 unit) tablet (Vitamin D3) clonazepam 0.5 mg tablet 0.5 mg PO BID@1600,2000 12/31/21 09/11/23 06/12/22 History diclofenac sodium 1 % topical gel 1 ea topical Q6H PRN Pain (Scale 12/31/21 07/04/23 06/12/22 History Score 4-6) docusate sodium 100 mg capsule 100 mg PO BID 12/31/21 07/04/23 06/12/22 History (Colace) multivitamin 1 tab PO DAILY 12/31/21 07/04/23 06/12/22 History omega 2-osu-qwg-fish oil 1,000 mg 1 cap PO DAILY 12/31/21 07/04/23 06/12/22 History (120 mg-180 mg) capsule (Fish Oil) risperidone 0.5 mg tablet 0.5 mg PO BID 12/31/21 07/04/23 06/12/22 History acetaminophen 325 mg tablet 650 mg PO Q6H PRN Pain 04/08/22 07/04/23 Unknown History (Tylenol) loperamide 2 mg tablet (Imodium 2 mg PO Q4H PRN Loose Stool 04/08/22 07/04/23 Unknown History A-D) clonidine HCl 0.1 mg tablet 0.1 mg PO DAILY PRN Agitation 06/12/22 07/04/23 Unknown History clonazepam 0.5 mg tablet 1 mg PO DAILY 11/03/22 07/04/23 Unknown History calcium carbonate 500 mg calcium 1,000 mg PO DAILY 07/04/23 07/04/23 Unknown History (1,250 mg) tablet cenobamate 100 mg tablet (Xcopri) 100 mg PO BEDTIME 07/04/23 07/04/23 Unknown History dextromethorphan-guaifenesin 10 10 ml PO Q4H PRN Cough 07/04/23 07/04/23 Unknown History mg-100 mg/5 mL oral liquid (Karena-Tussin DM) divalproex 500 mg tablet,delayed mg PO BID 09/10/23 Unknown History release cenobamate 100 mg tablet (Xcopri) 100 mg PO BEDTIME 09/11/23 09/11/23 Unknown History divalproex 500 mg tablet,delayed 1,000 mg PO BID 09/11/23 09/11/23 Unknown History release risperidone 0.5 mg tablet 0.5 mg PO BID 09/11/23 09/11/23 Unknown History Physical Exam 2 Vital Signs and Narrative: Vital Signs: Last Vital Signs Temp 98.0 F 09/10/23 21:26 Pulse 78 09/10/23 22:26 Resp 17 09/10/23 22:26 BP 134/92 H 09/10/23 22:26 Pulse Ox 99 09/10/23 22:26 O2 Del Method Room Air 09/10/23 22:26 BMI result Body Mass Index 42.8 Constitutional - Awake and Alert, No apparent distress. Cooperative. HEENT - left eye strabismus. Heart - S1S2, RRR, No edema Lungs - Normal lung expansion, Normal respiratory effort, No respiratory distress, CTA bilaterally Abdomen - NT / ND; +BS; No rebound or guarding Extremities - no calf tenderness bilaterally, no swelling Musculoskeletal - Normal inspection, normal ROM Skin - Warm/Dry Neurological - Alert & oriented x3. No focal weakness grossly noted. Psychological - Appropriate affect Results Labs 09/10/23 19:33 09/10/23 19:33 Labs: Laboratory Results - last 24 hr 09/10/23 09/10/23 19:33 22:53 MCV 96.3 MCH 33.0 MCHC 34.3 RDW 13.0 Plt Count 170 MPV 10.7 Immature Gran % (Auto) 0.4 Neut % (Auto) 65.0 Lymph % (Auto) 23.6 [place] % (Auto) 10.4 Eos % (Auto) 0.2 Baso % (Auto) 0.4 Lymph # (Auto) 1.3 [place] # (Auto) 0.6 Eos # (Auto) 0.0 Baso # (Auto) 0.0 Abs Immat Gran (auto) 0.02 Absolute Neuts (auto) 3.7 Absolute Nucleated RBC 0.000 Nucleated RBC % (auto) 0.0 Anion Gap 12 Estim Creat Clear Calc 123.5 Estimated GFR > 60 Random Glucose 99 Calcium 9.5 Magnesium 1.8 Valproic Acid 42.2 L Assessment and Plan (1) Recurrent seizures: Status: Acute (2) Anxiety disorder, unspecified: Qualifiers: Anxiety disorder type: unspecified anxiety disorder Qualified Code(s): F41.9 - Anxiety disorder, unspecified Status: Acute Plan Chase Anaya is a 44-year-old man admitted with: * Recurrent seizures. Mental status back to baseline. Admit to hospitalist service. Telemetry. Seizure precautions. Increase Keppra to 2 g PO bid - recommendation by Neurology. Continue treatment with Depakote and Xcopri. Check valproic acid and Keppra level. Appreciate neurology input -Dr. Roosevelt Avina. * Anxiety. Continue clonazepam as needed. * Mood disorder. Continue risperidone. I spoke with patient's father, Allen, over the phone. I informed him about the need to admit Chase for further treatment and close monitoring. He understood and agreed with plan.. DVT prophylaxis: SCDs Code status: Full Patient will need hospitalization for at least 2 midnight for close monitoring of symptoms, seizure precaution and optimization of anticonvulsant therapy as well as evaluation by Neurology. Quality Stroke Does the patient have a stroke diagnosis?: No VTE Prior VTE?: No VTE Risk Level:: Medical - moderate - high VTE Device Contraindication: N/A - Device Ordered VTE Drug Contraindication: Treatment Not Indicated
[2023-09-11 07:27] LABS: MANUAL DIFF FLAG NO
[2023-09-11 07:34] LABS: Basophils Percent Auto 0.5 % (0-2); Eosinophils Percent Auto 0.3 % (0-4); Hematocrit 41.3 % (42.0-52.0); Hemoglobin 14.2 g/dl (14.0-18.0); Imm Gran Abs Auto 0.02 X10*3/uL (0.00-0.03); Imm Gran Pct Auto 0.3 % (0.0-0.4); Lymphocytes Absolute Auto 2.7 X10*3/uL (1.2-4.9); Mean Corpuscular HGB Conc 34.4 g/dl (31.0-36.0); Mean Corpuscular Hemoglobin 33.1 pg (27.0-33.0); Mean Corpuscular Volume 96.3 fL (80.0-98.0); Mean Platelet Volume 10.7 fL (9.4-12.4); Monocytes Absolute Auto 0.5 X10*3/uL (0.1-1.2); Monocytes Percent Auto 8.6 % (2-11); Neutrophils Absolute Auto 2.6 x10*3/uL (2.0-8.3); Neutrophils Percent Auto 44.3 % (45-73); Platelet Count 185 X10*3/uL (160-400); Red Blood Count 4.29 X10*6/uL (4.60-5.80); Red Cell Distribution Width 13.2 % (11.0-16.0); White Blood Count 5.8 X10*3/uL (4.8-10.8)
[2023-09-11 07:59] LABS: Alanine Aminotransferase 15 U/L (0-40); Albumin Level 4.2 g/dL (3.5-5.0); Alkaline Phosphatase 36 U/L (39-117); Anion Gap 13 (12-20); Aspartate Amino Transferase 17 U/L (5-37); Bilirubin Total 0.3 mg/dL (0.0-1.0); Blood Urea Nitrogen 8 mg/dL (9-16); Calcium 9.1 mg/dL (8.4-10.2); Carbon Dioxide 27 mmol/L (22-29); Chloride 106 mmol/L (96-108); Creatinine Clr Calc Pharmacy 129.2; Estimated Glomerular Filt Rate > 60; Glucose Random 86 mg/dL (60-115); Potassium 3.8 mmol/L (3.3-5.1); Sodium 142 mmol/L (135-145); Total Protein 6.9 g/dL (6.5-8.0)
[2023-09-11] MEDS: levETIRAcetam 1,000 MG TABLET 2000 MG PO ×2 (08:19→20:26)
--- NOTE | 2023-09-11 11:05 | PHA.MEDREC ---
Pharmacy Consult ? Medication Reconciliation Pharmacy has completed the medication reconciliation. Sent list from [facility].
--- NOTE | 2023-09-11 13:32 | MHC.CM.PN ---
PATIENT IS IN FROM [facility] SETTING.HIS FATHER/GUARDIAN IS IN ROOM AND SIGNED IMM. PATIENT WALKS INDEPENDENTLY AND HAS RN CARE NEEDED AT HIS HOME ENVIRONMENT. MEDICATION CERTIFIED STAFF ASSIST WITH ADMINISTRATION. NO PLAN FOR DC TODAY, BUT POSSIBLY WEDNESDAY. STAFF ASSISTS WITH TRANSPORT, ACCORDING TO PATIENT'S FATHER. IMM 09/10 IN CHART
--- NOTE | 2023-09-11 15:20 | P.CNNE_ITS ---
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 He is intellectually challenged and resides in a grp home. He is admitted with multiple Sz His epilepsy has been particularly intractable resistant to multiple meds. He is followed by Dr Holland and is on Keppra, Depakote and Xcopri. Hi sDepakote level is slightly low and his keppra levels are pending. Review of Systems 2 Review of Systems: Yes Unobtainable due to mental status Cardiovascular: Cardiovascular: Denies chest pain Respiratory: Respiratory: Denies cough Neurologic: Reports convulsions and Reports seizure-like activity [facility] Past Medical History Medical History Intractable seizure disorder Intractable epilepsy Epileptic seizure Hyponatremia History of SIADH Seizure disorder Intellectual disability Anxiety disorder, unspecified Family History Family History Other No family history of coronary artery disease Surgical History Surgical History No pertinent past surgical history Social History Social History Household Members: Other Household Members Other:: [facility] Housing: Other Housing Other:: senior care. Do you presently have visiting nurse or other home services: No Alcohol intake: never Patient Tobacco Use Status: Never used Tobacco Smoked in Last 30 Days: No e-Cigarette/Vaping Use: Never Used Patient Interested in Nicotine Replacement: No Patient Given Instructions on How to Stop Smoking: No Second Hand Smoke Exposure: No Use of substances other than those prescribed or required for medical reasons: No Currently Displaying Signs/Symptoms of Drug Intoxication Withdrawal: No Have you been hit, kicked, punched, or otherwise hurt by someone within the past year? If so, by whom?: No Do you feel safe in your current relationship?: Yes Is there a partner from a previous relationship who is making you feel unsafe now?: No Are you made to feel afraid or neglected: No Advance Directives: Yes Advance Directives on File: Yes Advance Directives Date on File: 02/06/22 Do you have thoughts of harming others: None Do you have a plan to hurt others: No Plan service: No Current occupational status: disabled Meds Allergies Allergy/AdvReac Type Severity Reaction Status Date / Time No Known Allergies Allergy Verified 09/10/23 18:20 [No Known Allergies*] Active Medications: Current Medications Acetaminophen (Acetaminophen 325 Mg Tablet) 650 mg PO Q6H PRN PRN Reason: Pain, Mild (Pain Scale 1-3) Clonazepam (Clonazepam 0.5 Mg Tablet) 0.5 mg PO BID@ [facility] Last Admin: 09/11/23 00:30 Dose: 0.5 mg Divalproex Sodium (Divalproex Sodium 500 Mg Tablet.Dr) 1,000 mg PO BID [facility] Levetiracetam (Levetiracetam 1,000 Mg Tablet) 2,000 mg PO BID [facility] Last Admin: 09/11/23 08:19 Dose: 2,000 mg Pat Own Med ( Cenobamate [Xcopri] 100 Mg Tablet) 100 mg PO BEDTIME [facility] Risperidone (Risperidone 0.5 Mg Tablet) 0.5 mg PO BID [facility] Last Admin: 09/11/23 08:19 Dose: 0.5 mg Sodium Chloride (0.9 % Sodium Chloride Flush 3 Ml Syringe) [facility] Last Admin: 09/11/23 08:19 Dose: 3 ml Home Medications Medication Instructions Recorded Confirmed Last Taken Type cetirizine 10 mg tablet (Zyrtec) 10 mg PO DAILY PRN post nasal drip 12/31/21 09/11/23 06/12/22 History cholecalciferol (vitamin D3) 50 100 mcg PO DAILY 12/31/21 09/11/23 06/12/22 History mcg (2,000 unit) tablet (Vitamin D3) clonazepam 0.5 mg tablet 0.5 mg PO BID@12/31/21 09/11/23 06/12/22 History diclofenac sodium 1 % topical gel 1 ea topical Q6H PRN Pain (Scale 12/31/21 09/11/23 06/12/22 History Score 4-6) docusate sodium 100 mg capsule 100 mg PO BID 12/31/21 09/11/23 06/12/22 History (Colace) multivitamin 1 tab PO DAILY 12/31/21 09/11/23 06/12/22 History omega 7-pie-aiv-fish oil 1,000 mg 1 cap PO DAILY 12/31/21 09/11/23 06/12/22 History (120 mg-180 mg) capsule (Fish Oil) acetaminophen 325 mg tablet 650 mg PO Q6H PRN Pain 04/08/22 09/11/23 Unknown History (Tylenol) loperamide 2 mg tablet (Imodium 2 mg PO Q4H PRN Loose Stool 04/08/22 09/11/23 Unknown History A-D) clonidine HCl 0.1 mg tablet 0.1 mg PO DAILY PRN Agitation 06/12/22 09/11/23 Unknown History calcium carbonate 500 mg calcium 1,000 mg PO DAILY 07/04/23 09/11/23 Unknown History (1,250 mg) tablet dextromethorphan-guaifenesin 10 10 ml PO Q4H PRN Cough 07/04/23 09/11/23 Unknown History mg-100 mg/5 mL oral liquid (Karena-Alessia DM) cenobamate 100 mg tablet (Xcopri) 100 mg PO BEDTIME 09/11/23 09/11/23 Unknown History clonazepam 1 mg tablet 1 mg PO DAILY 09/11/23 09/11/23 Unknown History divalproex 500 mg tablet,delayed 1,000 mg PO BID 09/11/23 09/11/23 Unknown History release risperidone 0.5 mg tablet 0.5 mg PO BID 09/11/23 09/11/23 Unknown History Physical Exam 2 Vital Signs: Vital Signs: Last Vital Signs Temp 97.3 F 09/11/23 15:15 Pulse 81 09/11/23 15:15 Resp 20 09/11/23 15:15 BP 116/88 09/11/23 15:15 Pulse Ox 100 09/11/23 15:15 O2 Del Method Room Air 09/11/23 15:15 BMI result Body Mass Index 42.8 Const: Other: Patient is awake and alert Orientation/consciousness: oriented to person Resp: Auscultation: clear to auscultation bilaterally Cardio: Rate: regular rate GI: Other: Abdomen is soft and nontender Neuro: Other: Alert, oriented. speech is fluent. Back to baseline per relative at bedside. Strabismus unchnaged. Non focal exam. General: oriented to person Results Labs 09/11/23 07:13 09/11/23 07:13 Labs: Short CBC 09/10/23 09/11/23 Range/Units 19:33 07:13 WBC 5.7 5.8 (4.8-10.8) X10*3/uL Hgb 13.4 L 14.2 (14.0-18.0) g/dl Hct 39.1 L 41.3 L (42.0-52.0) % Plt Count 170 185 (160-400) X10*3/uL BMP 09/10/23 09/11/23 19:33 07:13 Sodium 143 142 Potassium 4.0 3.8 Chloride 109 H 106 Carbon Dioxide 26 27 BUN 12 8 L Creatinine 0.68 0.65 Calcium 9.5 9.1 Liver Function 09/11/23 Range/Units 07:13 Total Bilirubin 0.3 (0.0-1.0) mg/dL AST 17 (5-37) U/L ALT 15 (0-40) U/L Alkaline Phosphatase 36 L (39-117) U/L Albumin 4.2 (3.5-5.0) g/dL Assessment and Plan (1) Recurrent seizures: Status: Acute Poorly controlled epilepsy with partial Sz with secondary generalization. encephalopathy Recom. Keppra 2gm bid, Increase Depakote by 250mg. Observe for 24 hrs and discharge if no more Sz. OP f/u Dr Holland (2) Anxiety disorder, unspecified: Qualifiers: Anxiety disorder type: unspecified anxiety disorder Qualified Code(s): F41.9 - Anxiety disorder, unspecified Status: Acute Plan Chase Anaya is a 44-year-old man admitted with: * Recurrent seizures. Mental status back to baseline. Admit to hospitalist service. Telemetry. Seizure precautions. Increase Keppra to 2 g PO bid - recommendation by Neurology. Continue treatment with Depakote and Xcopri. Check valproic acid and Keppra level. Appreciate neurology input -Dr. Roosevelt Avina. * Anxiety. Continue clonazepam as needed. * Mood disorder. Continue risperidone. I spoke with patient's father, Allen, over the phone. I informed him about the need to admit Chase for further treatment and close monitoring. He understood and agreed with plan.. DVT prophylaxis: SCDs Code status: Full Patient will need hospitalization for at least 2 midnight for close monitoring of symptoms, seizure precaution and optimization of anticonvulsant therapy as well as evaluation by Neurology. Procedures Date of Service Date of Service: 09/11/23
[2023-09-11] MEDS: Acetaminophen 325 MG TABLET 650 MG PO (23:34)
[2023-09-12 03:32] VITALS: BP 141/60; PULSE 73; RESP 20; TEMP 37.1; O2SAT 100
[2023-09-12 07:48] VITALS: BP 119/86; PULSE 61; RESP 20; TEMP 36.1; O2SAT 100
[2023-09-12] MEDS: levETIRAcetam 1,000 MG TABLET 2000 MG PO (08:25)
[2023-09-12] MEDS: risperiDONE 0.5 MG TABLET PO (08:25)
[2023-09-12] MEDS: 0.9 % Sodium Chloride Flush 3 ML SYRINGE IVFLUSH (08:26)
[2023-09-12] MEDS: Divalproex Sodium 250 MG TABLET.DR 1250 MG PO (08:26)
--- NOTE | 2023-09-12 08:43 | PM.DS ---
DS: Providers Provider Date of Service: 09/12/23 Date of admission: 09/10/23 23:52 Date of discharge: 09/12/23 Primary care physician: Unknown Physician Consults: 09/11/23 00:07 Consult to Neurology Routine Consulting Provider: [facility] Reason for consultation: Multiple seizures Has provider been notified: Yes DS: Diagnosis Discharge Diagnosis (1) Recurrent seizures: Status: Acute (2) Anxiety disorder, unspecified: Status: Acute DS: Summary Hospital Course Hospital Course: HPI: Chase Anaya is a 44-year-old man with past medical history significant for seizure disorder on Keppra, Depakote and Xcopri, anxiety and intellectual disability was brought to the emergency department due to multiple seizures weakness by long term staff. Patient had a few episodes of seizures in the emergency department. I actually witnessed one episode myself wire was evaluated the patient. It was a brief tonic seizure patient returned to baseline almost immediately. Patient did not report any pain or any other symptoms such as shortness of breath, nausea or vomiting. In the ED, he was found to have stable vital signs. Blood workup showed no leukocytosis. There are no significant electrolyte imbalances. Renal function is normal. Valproic acid are low. ED tx: Ativan 3 mg IV (total), Keppra 2 g total (400 mg p.o. + 1500 mg IV), NS 1L bolus. Hospital course: Patient did not have any further episodes of seizure when he was admitted to the hospitalist service. Case was discussed with inpatient Neurology who recommended increasing the dosage of levetiracetam and divalproex as below. Patient was seizure-free during hospital course for more than 24 hours. Patient to follow-up with primary care doctor within 1 week. Patient to follow-up with neurologist within 2 weeks. Status at Discharge Overall status at discharge: patient is back to baseline Time Attestation Total time managing care of this patient today: 31 mintues. Discharge Coordination Time (in mins): 31 Quality: Safe Use of Opioids Does Pt have an Active Cancer Diagnosis on the Problem List?: No Quality: Stroke Does the patient have a stroke diagnosis?: No Physical Exam Vital Signs: Vital Signs: Last Vital Signs Temp 96.9 F 09/12/23 07:48 Pulse 61 09/12/23 07:48 Resp 20 09/12/23 07:48 BP 119/86 09/12/23 07:48 Pulse Ox 100 09/12/23 07:48 O2 Del Method Room Air 09/12/23 07:48 BMI result Body Mass Index 42.8 Gen: in no acute distress HEENT: sclera anicteric, moist mucus membranes Neck: supple Lungs: clear to auscultation bilaterally Heart: regular rate and rhythm, no murmurs Abd: soft, non-tender, non-distended Ext: no edema Skin: warm/well-perfused Neuro: alert and oriented x3, no focal findings Psych: appropriate affect DS: Data Data Completed and Pending Labs on day of discharge: Laboratory Results - last 24 hr 09/11/23 07:13 Sodium 142 Potassium 3.8 Chloride 106 Carbon Dioxide 27 Anion Gap 13 BUN 8 L Creatinine 0.65 Estim Creat Clear Calc 129.2 Estimated GFR > 60 Random Glucose 86 Calcium 9.1 Total Bilirubin 0.3 AST 17 ALT 15 Alkaline Phosphatase 36 L Total Protein 6.9 Albumin 4.2 Discharge Plan Discharge Anticipated Discharge Date/Time: 09/12/23 12:47 Patient Disposition: Xfer Other Discharge Diagnosis: Breakthrough seizure Referrals: Physician,Unknown J [Primary Care Provider] - 1 Week Eric Holland MD [Physician] - 2 Weeks Discharge Medications: New divalproex 250 mg Tablet,Delayed Release (Dr/Ec) 1,250 mg PO BID 30 Days Qty: 300 0RF levetiracetam 1,000 mg Tablet 2,000 mg PO BID 30 Days Qty: 120 0RF Continued multivitamin Tablet 1 tab PO DAILY cetirizine [Zyrtec] 10 mg Tablet 10 mg PO DAILY PRN (Reason: post nasal drip) clonazepam 0.5 mg tablet 0.5 mg PO BID@1600,2000 docusate sodium [Colace] 100 mg Capsule 100 mg PO BID diclofenac sodium 1 % Gel 1 ea TOPICAL Q6H PRN (Reason: Pain (Scale Score 4-6)) cholecalciferol (vitamin D3) [Vitamin D3] 50 mcg (2,000 unit) Tablet 100 mcg PO DAILY omega 9-zcp-hye-fish oil [Fish Oil] 1,000 mg (120 mg-180 mg) Capsule 1 cap PO DAILY acetaminophen [Tylenol] 325 mg Tablet 650 mg PO Q6H PRN (Reason: Pain) loperamide [Imodium A-D] 2 mg Tablet 2 mg PO Q4H PRN (Reason: Loose Stool) Rx Instructions: administer after each loose stool until symptoms controlled; do not exceed 8 mg per 24 hrs clonidine HCl 0.1 mg Tablet 0.1 mg PO DAILY PRN (Reason: Agitation) dextromethorphan-guaifenesin [Karena-Tussin DM] 10-100 mg/5 mL Liquid 10 ml PO Q4H PRN (Reason: Cough) calcium carbonate 500 mg calcium (1,250 mg) Tablet 1,000 mg PO DAILY Xcopri 100 mg tablet 100 mg PO BEDTIME risperidone 0.5 mg tablet 0.5 mg PO BID clonazepam 1 mg Tablet 1 mg PO DAILY Discontinued levetiracetam 500 mg Tablet 1,500 mg PO BID Qty: 180 0RF divalproex 500 mg tablet,delayed release (DR/EC) 1,000 mg PO BID Discharge Orders: Discharge Order (Routine); Ordered 09/12/23 Ordered By: Jacqueline Lynn Diet: Advance to usual diet Activity on Discharge: As tolerated Stand Alone Forms: Patient Portal Discharge page Care Plan Goals: Seizure control Health Concerns: Breakthrough seizures Plan of Treatment: Increased divalproex [place] 1250 mg twice daily and increase levetiracetam to 2000 mg twice daily. Follow-up with neurologist Dr. Holland within 2 weeks. Avoid sleep deprivation. Follow-up with primary care doctor within 1 week Assessment: As above
[2023-09-12] MEDS: Acetaminophen 325 MG TABLET 650 MG PO (10:33)
--- NOTE | 2023-09-12 10:47 | MHC.CM.PN ---
Pt is medically cleared for D/C back to his long-term. This CM called pts father Allen to confirm, Allen gave this CM the long-term nurse Alejandro's number ([phone]) to call and confirm that they will transport him home. This CM called and spoke with nurse Alejandro, who will leaf size picker pt at 12pm. This CM asked if they need long-term orders signed, and Alejandro stated they will only need the D/C summary.
[2023-09-12 11:04] VITALS: BP 121/81; PULSE 76; RESP 20; TEMP 36.1; O2SAT 99
--- NOTE | 2023-09-12 13:35 | PC.NURSE ---
Director of facility, Herb called @ [phone] with update to the resident pharmacy. New pharmacy is [facility]. [address], [place], [place]. Phone number [phone]. Update sent to provider.
[2023-09-14 14:38] LABS: Levetiracetam Keppra 83.8 mcg/mL (6.0-46.0)
== END 2023-09-12 12:00 | disposition other institution (70) | DRG 101 ==
LOC: HO.ED 23:16 → HO.EDOVER 23:55 → HO.IMC 09-11 00:19
PROVIDERS: Physician Assistant; Admitting Provider Internal Medicine; Emergency Provider Emergency Medicine; PCP Family Medicine; Visit Provider Student in an Organized Health Care Education/Training Program
DX: G40.909 Epilepsy, unspecified, not intractable, without status epilepticus (principal); F79 Unspecified intellectual disabilities; F41.9 Anxiety disorder, unspecified; F39 Unspecified mood [affective] disorder; Z79.899 Other long term (current) drug therapy
CPT/HCPCS: 36415; 80048; 80053; 80164; 80177; 83735; 85025; 99285; J1953; J2060

== ENCOUNTER → 2023-09-10 23:52 | Outpatient (BNV) | payer MEDICARE, MEDICAID, SELFPAY | PROVIDERS: Admitting Provider Internal Medicine; Emergency Provider Emergency Medicine; Visit Provider Psychiatry & Neurology Neurology | DX: G40.909 Epilepsy, unspecified, not intractable, without status epilepticus (principal); F41.9 Anxiety disorder, unspecified | CPT/HCPCS: 99222 ==

== ENCOUNTER → 2023-09-10 23:52 | Outpatient (BNV) | payer MEDICARE, MEDICAID, SELFPAY | PROVIDERS: Admitting Provider Internal Medicine; Emergency Provider Emergency Medicine; Visit Provider Internal Medicine | DX: G40.909 Epilepsy, unspecified, not intractable, without status epilepticus (principal); F41.9 Anxiety disorder, unspecified | CPT/HCPCS: 99222; 99239 ==

== ENCOUNTER 2024-05-13 09:07 | Outpatient (REF) | payer MEDICARE, MEDICAID, SELFPAY ==
[2024-05-13 11:37] LABS: Alanine Aminotransferase 14 U/L (0-40); Albumin Level 3.9 g/dL (3.5-5.0); Alkaline Phosphatase 42 U/L (39-117); Aspartate Amino Transferase 23 U/L (5-37); Bilirubin Direct < 0.2 mg/dL (0.0-0.5); Bilirubin Total 0.2 mg/dL (0.0-1.0); Total Protein 6.6 g/dL (6.5-8.0)
[2024-05-13 11:51] LABS: Valproate 57.6 mcg/mL (50.0-100.0)
[2024-05-17 18:03] LABS: Levetiracetam Keppra 104.7 mcg/mL (6.0-46.0)
== END 2024-05-13 09:08 | disposition home or self-care (01) ==
LOC: HO.HMGCLDS 09:07
PROVIDERS: Visit Provider Psychiatry & Neurology Neurology
DX: G40.909 Epilepsy, unspecified, not intractable, without status epilepticus (principal)
CPT/HCPCS: 36415; 80076; 80164; 80177

== ENCOUNTER 2024-05-30 13:57 | Outpatient (AMB) | payer MEDICARE, MEDICAID, SELFPAY ==
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
[2024-05-30 14:09] VITALS: BP 110/70; PULSE 90; O2SAT 98
== END 2024-05-30 14:30 | disposition home or self-care (01) ==
PROVIDERS: PCP Family Medicine; Visit Provider Nurse Practitioner Family
DX: T14.8XXA Other injury of unspecified body region, initial encounter (principal)

== ENCOUNTER → 2024-05-30 13:57 | Outpatient (BNVA) | payer MEDICARE, MEDICAID, SELFPAY | PROVIDERS: PCP Family Medicine; Visit Provider Nurse Practitioner Family | DX: S20.222A Contusion of left back wall of thorax, initial encounter (principal); Y04.0XXA Assault by unarmed brawl or fight, initial encounter; Y93.9 Activity, unspecified; Y92.099 Unspecified place in other non-institutional residence as the place of occurrence of the external cause; Y99.9 Unspecified external cause status | CPT/HCPCS: 99212 ==

== ENCOUNTER 2024-07-16 19:32 | Inpatient (IN) | payer MEDICARE, MEDICAID, SELFPAY ==
[2024-07-16 19:42] VITALS: BP 154/04; PULSE 79; RESP 18; TEMP 37; O2SAT 96
--- NOTE | 2024-07-16 19:53 | ECG_ITS ---
Test Reason : SEIZURE Blood Pressure : */* mmHG Vent. Rate : 76 BPM Atrial Rate : 76 BPM P-R Int : 110 ms QRS Dur : 84 ms QT Int : 336 ms P-R-T Axes : 21 35 57 degrees QTcB Int : 378 ms Sinus rhythm with short [place] Otherwise normal ECG When compared with ECG of 04-Mar-2023 21:26, No significant change was found Referred By: Lubna Rice Electronically Signed By: Catrachito Devi
[2024-07-16 19:55] VITALS: BP 100/60; BP 154/104; PULSE 78; PULSE 79; RESP 16; TEMP 37; O2SAT 96; BMI 24.2
--- NOTE | 2024-07-16 19:55 | ED_ITS ---
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 He is intellectually challenged and resides in a [facility] home. He is admitted with multiple Sz His epilepsy has been particularly intractable resistant to multiple meds. He is followed by Dr Holland and is on Keppra, Depakote and Xcopri. Patient today presented with having multiple seizure. To the bystander it seems to be very short duration lasting approximately 10-20 seconds. Patient is unaware this was happening. His dose of seizure medication has not changed. Patient is on Depakote 1000 mg twice a day. He is on Keppra 1500 mg twice a day. Xcorpi 4 mg. Patient denies any trauma. No headache. No focal weakness. Patient from long-term. No recreational drug use. Seizure History: Yes Related Data Home Medications ?Medication ?Instructions ?Recorded ?Confirmed cetirizine 10 mg tablet (Zyrtec) 10 mg PO DAILY PRN post nasal drip 12/31/21 09/11/23 cholecalciferol (vitamin D3) 50 100 mcg PO DAILY 12/31/21 09/11/23 mcg (2,000 unit) tablet (Vitamin D3) clonazepam 0.5 mg tablet 0.5 mg PO BID@1600,2000 12/31/21 09/11/23 diclofenac sodium 1 % topical gel 1 ea topical Q6H PRN Pain (Scale 12/31/21 09/11/23 Score 4-6) docusate sodium 100 mg capsule 100 mg PO BID 12/31/21 09/11/23 (Colace) multivitamin 1 tab PO DAILY 12/31/21 09/11/23 omega 1-aeu-uyu-fish oil 1,000 mg 1 cap PO DAILY 12/31/21 09/11/23 (120 mg-180 mg) capsule (Fish Oil) acetaminophen 325 mg tablet 650 mg PO Q6H PRN Pain 04/08/22 09/11/23 (Tylenol) loperamide 2 mg tablet (Imodium 2 mg PO Q4H PRN Loose Stool 04/08/22 09/11/23 A-D) clonidine HCl 0.1 mg tablet 0.1 mg PO DAILY PRN Agitation 06/12/22 09/11/23 calcium carbonate 1,000 mg PO DAILY 07/04/23 09/11/23 dextromethorphan-guaifenesin 10 10 ml PO Q4H PRN Cough 07/04/23 09/11/23 mg-100 mg/5 mL oral liquid (Karena-Tussin DM) cenobamate 100 mg tablet (Xcopri) 100 mg PO BEDTIME 09/11/23 09/11/23 clonazepam 1 mg tablet 1 mg PO DAILY 09/11/23 09/11/23 risperidone 0.5 mg tablet 0.5 mg PO BID 09/11/23 09/11/23 Previous Rx's ?Medication ?Instructions ?Recorded divalproex 250 mg tablet,delayed 1,250 mg (5 x 250 mg) PO BID 30 09/12/23 release days #300 tabs levetiracetam 1,000 mg tablet 2,000 mg (2 x 1,000 mg) PO BID 30 09/12/23 days #120 tabs Allergies Allergy/AdvReac Type Severity Reaction Status Date / Time No Known Allergies Allergy Verified 07/16/24 20:00 [No Known Allergies*] Review of Systems Review of Systems: No fever no chills no chest pain Yes all other systems are reviewed and are negative [facility] Past Medical History Attestation statement: The following information was validated with the patient. Medical History Intractable seizure disorder Intractable epilepsy Epileptic seizure Hyponatremia History of SIADH Seizure disorder Intellectual disability Anxiety disorder, unspecified Surgical History No pertinent past surgical history Family History Family History Other No family history of coronary artery disease Social History Social History Household Members: Other Household Members Other:: prison Housing: Other Housing Other:: long-term. Do you presently have visiting nurse or other home services: No Alcohol intake: never Patient Tobacco Use Status: Never used Tobacco e-Cigarette/Vaping Use: Never Used Second Hand Smoke Exposure: No Advance Directives: Yes Advance Directives on File: Yes Advance Directives Date on File: 02/06/22 service: No Current occupational status: disabled Physical Exam Vital Signs: Vital Signs: Last Vital Signs Temp 98.6 F 07/16/24 19:55 Pulse 79 07/16/24 19:55 Resp 16 07/16/24 19:55 BP 154/104 H 07/16/24 19:55 Pulse Ox 96 07/16/24 19:55 O2 Del Method Room Air 07/16/24 19:55 BMI result Body Mass Index 24.2 Appearance: Alert. Oriented X3. No acute distress. Eyes: Pupils equal, round and reactive to light. ENT: Pharynx normal. Neck: Normal inspection. Neck supple. No lymph nodes noted. No crepitus CVS: Normal heart rate and rhythm. Pulses normal. Normal S1 and S2 Respiratory: No respiratory distress. Breath sounds normal. No Wheezing. No rales Abdomen: Soft and nontender. No rigidity. No distention. good BS x4 Skin: Skin warm and dry. Normal skin color. Normal skin turgor. Extremities: No lower extremity edema. Neurovascular intact to all extremities. No Lacerations. No Rash Neuro: Oriented X 3. No motor deficit. No sensory deficit. Moving all extermities. No slurred speech Medical Decision Making Medical Decision Making MDM Narrative: Patient from long-term. History of seizures. Currently on Keppra 1500 mg twice a day. Patient currently on Keppra 2000 mg twice a day also on Depakote 12 50 twice a day. In addition to Xcopri 100 mg at bedtime. The dose of medication had not changed recently. Patient is from a long-term has been compliant with medication. prison noted patient had 6 bouts of seizure today. Each seizure very short duration lasting less than 15-20 seconds. Patient came to the ED for further evaluation. Neurologically is baseline. Is awake alert answering question. Likely will require admission for observation. Labs are still pending. In no acute distress. Levels of Depakote was ordered Differential Diagnosis Differential Diagnoses: The differential diagnosis associated with the presentation includes Breakthrough seizure, medication being low Admission/Observation Consideration of admission/observation: Escalation of care including admission/observation considered Independent Historian prison, patient's sister External Record Review External record reviewed: Inpatient record Discharge Plan Discharge Clinical Impression: Intractable seizure disorder Patient Disposition: Still a Patient Prescriptions: No Action multivitamin Tablet 1 tab PO DAILY cetirizine [Zyrtec] 10 mg Tablet 10 mg PO DAILY PRN (Reason: post nasal drip) clonazepam 0.5 mg tablet 0.5 mg PO BID@1600,2000 docusate sodium [Colace] 100 mg Capsule 100 mg PO BID diclofenac sodium 1 % Gel 1 ea TOPICAL Q6H PRN (Reason: Pain (Scale Score 4-6)) cholecalciferol (vitamin D3) [Vitamin D3] 50 mcg (2,000 unit) Tablet 100 mcg PO DAILY omega 9-cnt-ccg-fish oil [Fish Oil] 1,000 mg (120 mg-180 mg) Capsule 1 cap PO DAILY acetaminophen [Tylenol] 325 mg Tablet 650 mg PO Q6H PRN (Reason: Pain) loperamide [Imodium A-D] 2 mg Tablet 2 mg PO Q4H PRN (Reason: Loose Stool) Rx Instructions: administer after each loose stool until symptoms controlled; do not exceed 8 mg per 24 hrs clonidine HCl 0.1 mg Tablet 0.1 mg PO DAILY PRN (Reason: Agitation) dextromethorphan-guaifenesin [Karena-Tussin DM] 10-100 mg/5 mL Liquid 10 ml PO Q4H PRN (Reason: Cough) calcium carbonate 500 mg calcium (1,250 mg) Tablet 1,000 mg PO DAILY Xcopri 100 mg tablet 100 mg PO BEDTIME risperidone 0.5 mg tablet 0.5 mg PO BID clonazepam 1 mg Tablet 1 mg PO DAILY divalproex 250 mg Tablet,Delayed Release (Dr/Ec) 1,250 mg PO BID 30 Days Qty: 300 0RF levetiracetam 1,000 mg Tablet 2,000 mg PO BID 30 Days Qty: 120 0RF Print Language: Northern Irish
[2024-07-16 21:32] LABS: MANUAL DIFF FLAG NO
[2024-07-16 21:41] LABS: Basophils Percent Auto 0.4 % (0-2); Eosinophils Absolute Auto 0.1 X10*3/uL (0.0-0.4); Hematocrit 38.8 % (42.0-52.0); Hemoglobin 13.5 g/dl (14.0-18.0); Imm Gran Abs Auto 0.02 X10*3/uL (0.00-0.03); Imm Gran Pct Auto 0.4 % (0.0-0.4); Lymphocytes Absolute Auto 2.1 X10*3/uL (1.2-4.9); Lymphocytes Percent Auto 37.5 % (20-40); Mean Corpuscular HGB Conc 34.8 g/dl (31.0-36.0); Mean Corpuscular Hemoglobin 33.3 pg (27.0-33.0); Mean Corpuscular Volume 95.8 fL (80.0-98.0); Mean Platelet Volume 10.8 fL (9.4-12.4); Monocytes Absolute Auto 0.5 X10*3/uL (0.1-1.2); Monocytes Percent Auto 9.1 % (2-11); Neutrophils Absolute Auto 2.8 x10*3/uL (2.0-8.3); Neutrophils Percent Auto 50.6 % (45-73); Platelet Count 153 X10*3/uL (160-400); Red Blood Count 4.05 X10*6/uL (4.60-5.80); White Blood Count 5.5 X10*3/uL (4.8-10.8)
[2024-07-16 21:53] LABS: Alanine Aminotransferase 11 U/L (0-40); Albumin Level 4.2 g/dL (3.5-5.0); Alkaline Phosphatase 38 U/L (39-117); Anion Gap 12 (12-20); Aspartate Amino Transferase 18 U/L (5-37); Bilirubin Direct < 0.2 mg/dL (0.0-0.5); Bilirubin Total 0.2 mg/dL (0.0-1.0); Blood Urea Nitrogen 12 mg/dL (9-16); Calcium 9.5 mg/dL (8.4-10.2); Carbon Dioxide 25 mmol/L (22-29); Chloride 111 mmol/L (96-108); Creatinine Clr Calc Pharmacy 109.8; Estimated Glomerular Filt Rate > 60; Glucose Random 109 mg/dL (60-115); Potassium 3.9 mmol/L (3.3-5.1); Sodium 144 mmol/L (135-145); Total Protein 6.9 g/dL (6.5-8.0)
[2024-07-16 21:57] LABS: Valproate 139.5 mcg/mL (50.0-100.0)
--- NOTE | 2024-07-17 00:51 | PM.IMHP ---
History of Present Illness Date of Service: 07/17/24 Attending physician on admission: Vivek Oconnell Chief Complaint: seizures Patient is a 49-year-old male with a past medical history significant for intractable seizure disorder, hyponatremia, SIADH, intellectual disability and anxiety, who presented to the ED yesterday after having 7 seizures. He lives in a retirement in the seizures were witnessed. They were described as lasting about 10-20 seconds, tonic seizures. Patient reports during a seizure he usually calls out somebody's name for help. He is currently back at baseline and has no headache or confusion. He denies any recent illness, fever, chills, nausea or vomiting. He has no abdominal pain, chest pain or shortness of breath. He reports he has been taking his seizure medications as prescribed given by his retirement. He also reports he recently lost his father and has been under a lot of emotional stress and feels that this has been triggering his seizures. Review of Systems Constitutional: Constitutional: Denies chills, Denies fatigue, Denies fever(s) and Denies headache(s) Eyes: Eyes: Denies change in vision ENT: Denies headache(s), Denies nasal congestion, Denies nasal discharge and Denies sore throat Cardiovascular: Cardiovascular: Denies chest pain, Denies rapid heart rate, Denies leg edema, Denies lightheadedness and Denies dyspnea Respiratory: Respiratory: Denies chest congestion, Denies cough, Denies dyspnea and Denies wheezing Genitourinary: Genitourinary: Denies dysuria, Denies urinary frequency and Denies urinary urgency Musculoskeletal: Musculoskeletal: Denies myalgias Integumentary/Breasts: Skin/Breast: Denies rash Neurologic: Denies confusion, Denies headache(s), Denies memory loss and Reports convulsions Psychiatric: Psychiatric: Denies confusion and Denies memory loss Endocrine: Endocrine: Denies fatigue Hematologic/Lymphatic: Hematologic/Lymphatic: Denies easy bleeding and Denies easy bruising Allergic/Immunologic: Allergic/Immunologic: Denies wheezing PMFSH Medical History Intractable seizure disorder Intractable epilepsy Epileptic seizure Hyponatremia History of SIADH Seizure disorder Intellectual disability Anxiety disorder, unspecified Family History Other No family history of coronary artery disease Surgical History No pertinent past surgical history Social History Household Members: Other Household Members Other:: [facility] Housing: Other Housing Other:: retirement. Do you presently have visiting nurse or other home services: No Alcohol intake: never Patient Tobacco Use Status: Never used Tobacco Smoked in Last 30 Days: No e-Cigarette/Vaping Use: Never Used Second Hand Smoke Exposure: No Advance Directives: Yes Advance Directives on File: Yes Advance Directives Date on File: 02/06/22 service: No Current occupational status: disabled Meds Allergies Allergy/AdvReac Type Severity Reaction Status Date / Time No Known Allergies Allergy Verified 07/16/24 20:00 [No Known Allergies*] Active Medications: Current Medications Acetaminophen (Acetaminophen 325 Mg Tablet) 975 mg PO Q6H PRN PRN Reason: Pain, Mild 1-3,fever,headache Calcium Carbonate (Calcium Carbonate 750 Mg Tab.Chew) 750 mg PO Q4H PRN PRN Reason: Heartburn Enoxaparin Sodium (Enoxaparin Sodium 40 Mg/0.4 Ml Syringe) 40 mg SUBCUT Q24H AUBREY Levetiracetam (Keppra) 2,000 mg in 200 mls @ 400 mls/hr IV Q12H AUBREY Magnesium Hydroxide (Milk Of Magnesia 30 Ml Oral.Susp) 30 ml PO DAILY PRN PRN Reason: Constipation Melatonin (Melatonin 3 Mg Tablet) 6 mg PO BEDTIME PRN PRN Reason: Insomnia Ondansetron HCl (Ondansetron Hcl 4 Mg/2 Ml Vial) 4 mg IVPUSH Q8H PRN PRN Reason: Nausea and Vomiting Sodium Chloride (0.9 % Sodium Chloride Flush 3 Ml Syringe) 3 ml IVFLUSH QSHIFT [facility] Home Medications ?Medication ?Instructions ?Recorded ?Confirmed ?Last Taken ?Type cetirizine 10 mg tablet (Zyrtec) 10 mg PO DAILY PRN post nasal drip 12/31/21 09/11/23 06/12/22 History cholecalciferol (vitamin D3) 50 100 mcg PO DAILY 12/31/21 09/11/23 06/12/22 History mcg (2,000 unit) tablet (Vitamin D3) clonazepam 0.5 mg tablet 0.5 mg PO BID@1600,2000 12/31/21 09/11/23 06/12/22 History diclofenac sodium 1 % topical gel 1 ea topical Q6H PRN Pain (Scale 12/31/21 09/11/23 06/12/22 History Score 4-6) docusate sodium 100 mg capsule 100 mg PO BID 12/31/21 09/11/23 06/12/22 History (Colace) multivitamin 1 tab PO DAILY 12/31/21 09/11/23 06/12/22 History omega 8-ciq-cgi-fish oil 1,000 mg 1 cap PO DAILY 12/31/21 09/11/23 06/12/22 History (120 mg-180 mg) capsule (Fish Oil) acetaminophen 325 mg tablet 650 mg PO Q6H PRN Pain 04/08/22 09/11/23 Unknown History (Tylenol) loperamide 2 mg tablet (Imodium 2 mg PO Q4H PRN Loose Stool 04/08/22 09/11/23 Unknown History A-D) clonidine HCl 0.1 mg tablet 0.1 mg PO DAILY PRN Agitation 06/12/22 09/11/23 Unknown History calcium carbonate 1,000 mg PO DAILY 07/04/23 09/11/23 Unknown History dextromethorphan-guaifenesin 10 10 ml PO Q4H PRN Cough 07/04/23 09/11/23 Unknown History mg-100 mg/5 mL oral liquid (Karena-Tussin DM) cenobamate 100 mg tablet (Xcopri) 100 mg PO BEDTIME 09/11/23 09/11/23 Unknown History clonazepam 1 mg tablet 1 mg PO DAILY 09/11/23 09/11/23 Unknown History risperidone 0.5 mg tablet 0.5 mg PO BID 09/11/23 09/11/23 Unknown History cenobamate 100 mg tablet (Xcopri) 100 mg PO 07/17/24 Unknown History Physical Exam Vital Signs and Narrative: Vital Signs: Last Vital Signs Temp 98.6 F 07/16/24 19:55 Pulse 79 07/16/24 19:55 Resp 16 07/16/24 19:55 BP 154/104 H 07/16/24 19:55 Pulse Ox 96 07/16/24 19:55 O2 Del Method Room Air 07/16/24 19:55 BMI result Body Mass Index 24.2 General: AOx3, no acute distress Resp: CTA bilaterally CVS: S1, S2, RRR GI: +BS, NT, no distention Skin: Warm, dry Neuro: Cranial nerves II-XII grossly intact bilaterally. Motor grossly intact bilaterally Extremities: No LE edema Psych: Appropriate affect Const: General: No confusion Orientation/consciousness: No confusion Neuro: General: No confusion Results Labs 07/16/24 21:27 07/16/24 21:27 Labs: Laboratory Results - last 24 hr 07/16/24 21:27 MCV 95.8 MCH 33.3 H MCHC 34.8 RDW 13.0 Plt Count 153 L MPV 10.8 Immature Gran % (Auto) 0.4 Neut % (Auto) 50.6 Lymph % (Auto) 37.5 [place] % (Auto) 9.1 Eos % (Auto) 2.0 Baso % (Auto) 0.4 Lymph # (Auto) 2.1 [place] # (Auto) 0.5 Eos # (Auto) 0.1 Baso # (Auto) 0.0 Abs Immat Gran (auto) 0.02 Absolute Neuts (auto) 2.8 Absolute Nucleated RBC 0.000 Nucleated RBC % (auto) 0.0 Anion Gap 12 Estim Creat Clear Calc 109.8 Estimated GFR > 60 Random Glucose 109 Calcium 9.5 Total Bilirubin 0.2 Direct Bilirubin < 0.2 AST 18 ALT 11 Alkaline Phosphatase 38 L Total Protein 6.9 Albumin 4.2 Valproic Acid 139.5 H* Assessment and Plan (1) Recurrent seizures: Status: Acute (2) Intractable seizure disorder: Status: Acute Plan Patient is a 49-year-old male with a past medical history significant for intractable seizure disorder, hyponatremia, SIADH, intellectual disability and anxiety, who presented to the ED yesterday after having 7 seizures. Recurrent seizures secondary to intractable seizure disorder - labs normal, no infectious process or electrolyte abnormalities - mental status back to baseline - admit to telemetry - seizure precautions - continue Keppra 2 g b.i.d. and xcopri 100mg QHS - valproic acid level supratherapeutic, will hold PM dose for now - Keppra level pending - appreciate neurology input regarding medications - neurology consult Anxiety - continue clonazepam estimated Mood disorder - continue risperidone and clonidine Full code VTE prophylaxis: Lovenox Patient with recurrent seizures secondary to intractable seizure disorder requiring admission for at least 2 midnights stay for seizure precautions and optimization of anticonvulsant therapy as well as evaluation by Neurology. Quality Stroke Does the patient have a stroke diagnosis?: No VTE Prior VTE?: No VTE Risk Level:: Medical - moderate - high VTE Device Contraindication: Treatment Not Indicated VTE Drug Contraindication: N/A - Med Ordered
[2024-07-17] MEDS: clonazePAM 1 MG TABLET PO ×2 (00:52→09:20)
[2024-07-17] MEDS: LEVETIRACETAM IV (00:52)
[2024-07-17] MEDS: SODIUM CHLORIDE IV (00:52)
[2024-07-17] MEDS: Enoxaparin Sodium 40 MG/0.4 ML SYRINGE SUBCUT (00:59)
[2024-07-17 01:02] VITALS: BP 132/100; PULSE 79; RESP 20; TEMP 37; O2SAT 98
[2024-07-17] MEDS: ondansetron HCL 4 MG/2 ML VIAL IVPUSH (03:47)
[2024-07-17] MEDS: Calcium Carbonate 750 MG TAB.CHEW PO (03:47)
[2024-07-17 04:52] VITALS: BP 150/90; PULSE 88; RESP 18; O2SAT 98
[2024-07-17 04:56] LABS: MANUAL DIFF FLAG NO
[2024-07-17 04:57] LABS: Basophils Percent Auto 0.4 % (0-2); Eosinophils Percent Auto 0.2 % (0-4); Hematocrit 43.4 % (42.0-52.0); Hemoglobin 14.8 g/dl (14.0-18.0); Imm Gran Abs Auto 0.03 X10*3/uL (0.00-0.03); Imm Gran Pct Auto 0.3 % (0.0-0.4); Mean Corpuscular HGB Conc 34.1 g/dl (31.0-36.0); Mean Corpuscular Volume 96.9 fL (80.0-98.0); Mean Platelet Volume 10.7 fL (9.4-12.4); Neutrophils Percent Auto 69.1 % (45-73); Platelet Count 166 X10*3/uL (160-400); Red Blood Count 4.48 X10*6/uL (4.60-5.80); Red Cell Distribution Width 13.1 % (11.0-16.0); White Blood Count 10.1 X10*3/uL (4.8-10.8)
[2024-07-17 06:44] LABS: Anion Gap 13 (12-20); Blood Urea Nitrogen 13 mg/dL (9-16); Calcium 9.3 mg/dL (8.4-10.2); Carbon Dioxide 26 mmol/L (22-29); Chloride 109 mmol/L (96-108); Creatinine Clr Calc Pharmacy 119.4; Estimated Glomerular Filt Rate > 60; Glucose Random 94 mg/dL (60-115); Potassium 3.7 mmol/L (3.3-5.1); Sodium 144 mmol/L (135-145)
--- NOTE | 2024-07-17 08:05 | PHA.MEDREC ---
Pharmacy Consult ? Medication Reconciliation Pharmacy has completed the medication reconciliation, utilized list from HCP office at [facility] (Morgan Rutherford) and all claims matched.
--- NOTE | 2024-07-17 09:10 | P.PNIM_ITS ---
Subjective Subjective Date of Service: 07/17/24 Interval History: seen and examined this AM reports no further seizures reports increased stress in life Physical Exam 2 Vital Signs: Vital Signs: Last Vital Signs Temp 98.6 F 07/17/24 01:02 Pulse 88 07/17/24 04:52 Resp 18 07/17/24 04:52 BP 150/90 H 07/17/24 04:52 Pulse Ox 98 07/17/24 04:52 O2 Del Method Room Air 07/17/24 04:52 BMI result Body Mass Index 24.2 Const: Other: awake and alert, NAD; +strabismus s1s2 lungs clear abd soft neuro - awake and alert, normal speech Objective Data Active Medications Acetaminophen (Acetaminophen 325 Mg Tablet) 975 mg PO Q6H PRN PRN Reason: Pain, Mild 1-3,fever,headache Calcium Carbonate (Calcium Carbonate 750 Mg Tab.Chew) 750 mg PO Q4H PRN PRN Reason: Heartburn Last Admin: 07/17/24 03:47 Dose: 750 mg Documented By: RANI Calcium Carbonate (Calcium Oyster Shell Elemental 500 Mg Tablet) 1,000 mg PO DAILY [facility] Clonazepam (Clonazepam 1 Mg Tablet) 1 mg PO DAILY [facility] Clonazepam (Clonazepam 0.5 Mg Tablet) 0.5 mg PO BID@1600,2000 [facility] Clonidine HCl (Clonidine Hcl 0.1 Mg Tablet) 0.1 mg PO DAILY [facility]; Protocol Divalproex Sodium (Divalproex Sodium 250 Mg Tablet.) 1,250 mg PO BID [facility] Docusate Sodium (Docusate Sodium 100 Mg Capsule) 100 mg PO BID [facility] Enoxaparin Sodium (Enoxaparin Sodium 40 Mg/0.4 Ml Syringe) 40 mg SUBCUT Q24H [facility] Last Admin: 07/17/24 00:59 Dose: 40 mg Documented By: ARNI Levetiracetam (Keppra) 2,000 mg in 200 mls @ 400 mls/hr IV Q12H [facility] Last Infusion: 07/17/24 03:13 Dose: Infused Documented By: RANI Magnesium Hydroxide (Milk Of Magnesia 30 Ml Oral.Susp) 30 ml PO DAILY PRN PRN Reason: Constipation Melatonin (Melatonin 3 Mg Tablet) 6 mg PO BEDTIME PRN PRN Reason: Insomnia Multivitamins/Vitamin C (Multivitamin Tablet) 1 tab PO DAILY [facility] Non-Formulary Medication (Cenobamate [Xcopri]) 100 mg PO BEDTIME [facility] Ondansetron HCl (Ondansetron Hcl 4 Mg/2 Ml Vial) 4 mg IVPUSH Q8H PRN PRN Reason: Nausea and Vomiting Last Admin: 07/17/24 03:47 Dose: 4 mg Documented By: RANI Risperidone (Risperidone 0.5 Mg Tablet) 0.5 mg PO BID [facility] Sodium Chloride (0.9 % Sodium Chloride Flush 3 Ml Syringe) 3 ml IVFLUSH QSHIFT [facility] Last Admin: 07/17/24 08:17 Dose: Not Given Documented By: AMBROSE Non-Admin Reason: IV Running Vitamin D (Cholecalciferol (Vitamin D3) 25 Mcg Tablet) 100 mcg PO DAILY [facility] Labs 07/17/24 04:51 07/17/24 05:58 Labs: Laboratory Results - last 24 hr 07/16/24 07/17/24 07/17/24 21:27 04:51 05:58 MCV 95.8 96.9 MCH 33.3 H 33.0 MCHC 34.8 34.1 RDW 13.0 13.1 Plt Count 153 L 166 MPV 10.8 10.7 Immature Gran % (Auto) 0.4 0.3 Neut % (Auto) 50.6 69.1 Lymph % (Auto) 37.5 20.0 [place] % (Auto) 9.1 10.0 Eos % (Auto) 2.0 0.2 Baso % (Auto) 0.4 0.4 Lymph # (Auto) 2.1 2.0 [place] # (Auto) 0.5 1.0 Eos # (Auto) 0.1 0.0 Baso # (Auto) 0.0 0.0 Abs Immat Gran (auto) 0.02 0.03 Absolute Neuts (auto) 2.8 7.0 Absolute Nucleated RBC 0.000 0.000 Nucleated RBC % (auto) 0.0 0.0 Anion Gap 12 13 Estim Creat Clear Calc 109.8 119.4 Estimated GFR > 60 > 60 Random Glucose 109 94 Calcium 9.5 9.3 Total Bilirubin 0.2 Direct Bilirubin < 0.2 AST 18 ALT 11 Alkaline Phosphatase 38 L Total Protein 6.9 Albumin 4.2 Valproic Acid 139.5 H* Assessment and Plan (1) Recurrent seizures: Status: Acute Plan 49 yo M with epilepsy, difficult to control who is admited for multiple breakthrough seizures 1. Recurrent, breakthrough seizures no evidence of acute infection; appears to be back to baseline reports increased life stress continue baseline meds neuro consult for further recs 2. Mood continue baseline meds Full Code DVT pptx, lovenox requires on going hospitalization to evaluate, monitor for and treat recurrent breakthrough seizures Quality Stroke Does the patient have a stroke diagnosis?: No VTE Prior VTE?: No VTE Risk Level:: Medical - moderate - high VTE Device Contraindication: Treatment Not Indicated VTE Drug Contraindication: N/A - Med Ordered
--- NOTE | 2024-07-17 09:11 | MHC.CM.PN ---
Addendum entered by Rocio Cuellar 07/17/24 09:21: Peyton provided CM with an additional Contact/her /Rubén @ [phone]. Original Note: CM spoke with Patient's Sister/Guardian/Peyton @ [phone] and addressed IMM with her (original will be mailed certified letter to Sister and a copy will be placed on the chart). Patient lives in a [facility] and returning there is the goal for dc; CM has initiated and will follow for dc planning. PCP is Dr. Morgan Rutherford and transport at dc is [facility] staff vs S. Other listed Guardian/Patient's Father/Allen has .
[2024-07-17] MEDS: Multivitamin TABLET 1 TAB PO (09:20)
[2024-07-17] MEDS: Cholecalciferol (Vitamin D3) 25 MCG TABLET 100 MCG PO (09:20)
[2024-07-17] MEDS: cloNIDine HCL 0.1 MG TABLET PO (09:20)
[2024-07-17] MEDS: Docusate Sodium 100 MG CAPSULE PO ×2 (09:20→21:31)
[2024-07-17] MEDS: risperiDONE 0.5 MG TABLET PO ×2 (09:21→21:31)
[2024-07-17] MEDS: Divalproex Sodium 250 MG TABLET.DR 1250 MG PO ×2 (09:21→21:32)
[2024-07-17] MEDS: Calcium Oyster Shell Elemental 500 MG TABLET 1000 MG PO (09:21)
--- NOTE | 2024-07-17 10:27 | P.CNNE_ITS ---
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 His father had been keenly involved in his medical care and apparently he few days ago. This put him under stress and he had multiple breakthrough seizure bringing him to emergency room. When I saw him was comfortable and talked about his father. Review of Systems 2 Review of Systems: His father recently resulting in depression PMFSH Past Medical History Medical History Intractable seizure disorder Intractable epilepsy Epileptic seizure Hyponatremia History of SIADH Seizure disorder Intellectual disability Anxiety disorder, unspecified Family History Family History Other No family history of coronary artery disease Surgical History Surgical History No pertinent past surgical history Social History Social History Household Members: Other Household Members Other:: [facility] Housing: Other Housing Other:: jail. Do you presently have visiting nurse or other home services: No Alcohol intake: never Patient Tobacco Use Status: Never used Tobacco Smoked in Last 30 Days: No e-Cigarette/Vaping Use: Never Used Second Hand Smoke Exposure: No Advance Directives: Yes Advance Directives on File: Yes Advance Directives Date on File: 02/06/22 service: No Current occupational status: disabled Meds Allergies Allergy/AdvReac Type Severity Reaction Status Date / Time No Known Allergies Allergy Verified 07/16/24 20:00 [No Known Allergies*] Active Medications: Current Medications Acetaminophen (Acetaminophen 325 Mg Tablet) 975 mg PO Q6H PRN PRN Reason: Pain, Mild 1-3,fever,headache Calcium Carbonate (Calcium Carbonate 750 Mg Tab.Chew) 750 mg PO Q4H PRN PRN Reason: Heartburn Last Admin: 07/17/24 03:47 Dose: 750 mg Calcium Carbonate (Calcium Oyster Shell Elemental 500 Mg Tablet) 1,000 mg PO DAILY [facility] Last Admin: 07/17/24 09:21 Dose: 1,000 mg Clonazepam (Clonazepam 1 Mg Tablet) 1 mg PO DAILY [facility] Last Admin: 07/17/24 09:20 Dose: 1 mg Clonazepam (Clonazepam 0.5 Mg Tablet) 0.5 mg PO BID@1600,2000 [facility] Clonidine HCl (Clonidine Hcl 0.1 Mg Tablet) 0.1 mg PO DAILY [facility]; Protocol Last Admin: 07/17/24 09:20 Dose: 0.1 mg Divalproex Sodium (Divalproex Sodium 250 Mg Tablet.Dr) 1,250 mg PO BID [facility] Last Admin: 07/17/24 09:21 Dose: 1,250 mg Docusate Sodium (Docusate Sodium 100 Mg Capsule) 100 mg PO BID [facility] Last Admin: 07/17/24 09:20 Dose: 100 mg Enoxaparin Sodium (Enoxaparin Sodium 40 Mg/0.4 Ml Syringe) 40 mg SUBCUT Q24H [facility] Last Admin: 07/17/24 00:59 Dose: 40 mg Levetiracetam (Keppra) 2,000 mg in 200 mls @ 400 mls/hr IV Q12H [facility] Last Infusion: 07/17/24 03:13 Dose: Infused Magnesium Hydroxide (Milk Of Magnesia 30 Ml Oral.Susp) 30 ml PO DAILY PRN PRN Reason: Constipation Melatonin (Melatonin 3 Mg Tablet) 6 mg PO BEDTIME PRN PRN Reason: Insomnia Multivitamins/Vitamin C (Multivitamin Tablet) 1 tab PO DAILY [facility] Last Admin: 07/17/24 09:20 Dose: 1 tab Non-Formulary Medication (Cenobamate [Xcopri]) 100 mg PO BEDTIME [facility] Ondansetron HCl (Ondansetron Hcl 4 Mg/2 Ml Vial) 4 mg IVPUSH Q8H PRN PRN Reason: Nausea and Vomiting Last Admin: 07/17/24 03:47 Dose: 4 mg Risperidone (Risperidone 0.5 Mg Tablet) 0.5 mg PO BID [facility] Last Admin: 07/17/24 09:21 Dose: 0.5 mg Sodium Chloride (0.9 % Sodium Chloride Flush 3 Ml Syringe) 3 ml IVFLUSH QSHIFT [facility] Last Admin: 07/17/24 08:17 Dose: Not Given Vitamin D (Cholecalciferol (Vitamin D3) 25 Mcg Tablet) 100 mcg PO DAILY [facility] Last Admin: 07/17/24 09:20 Dose: 100 mcg Home Medications ?Medication ?Instructions ?Recorded ?Confirmed ?Last Taken ?Type cetirizine 10 mg tablet (Zyrtec) 10 mg PO DAILY PRN allergies 12/31/21 07/17/24 06/12/22 History cholecalciferol (vitamin D3) 50 100 mcg PO DAILY 12/31/21 07/17/24 06/12/22 History mcg (2,000 unit) tablet (Vitamin D3) clonazepam 0.5 mg tablet 0.5 mg PO BID@1600,2000 12/31/21 07/17/24 06/12/22 History diclofenac sodium 1 % topical gel 1 ea topical Q6H PRN Pain (Scale 12/31/21 07/17/24 06/12/22 History Score 4-6) docusate sodium 100 mg capsule 100 mg PO BID 12/31/21 07/17/24 06/12/22 History (Colace) multivitamin 1 tab PO DAILY 12/31/21 07/17/24 06/12/22 History omega 8-bxu-syq-fish oil 1,000 mg 1 cap PO DAILY 12/31/21 07/17/24 06/12/22 History (120 mg-180 mg) capsule (Fish Oil) acetaminophen 325 mg tablet 650 mg PO Q6H PRN Pain or fever 04/08/22 07/17/24 Unknown History (Tylenol) loperamide 2 mg tablet (Imodium 2 mg PO Q4H PRN Loose Stool 04/08/22 07/17/24 Unknown History A-D) clonidine HCl 0.1 mg tablet 0.1 mg PO DAILY PRN Agitation 06/12/22 07/17/24 Unknown History calcium carbonate 1,000 mg PO DAILY 07/04/23 07/17/24 Unknown History dextromethorphan-guaifenesin 10 10 ml PO Q4H PRN Cough 07/04/23 07/17/24 Unknown History mg-100 mg/5 mL oral liquid (Karena-Tussin DM) cenobamate 100 mg tablet (Xcopri) 100 mg PO BEDTIME 09/11/23 07/17/24 Unknown History clonazepam 1 mg tablet 1 mg PO DAILY 09/11/23 07/17/24 Unknown History risperidone 0.5 mg tablet 0.5 mg PO BID 09/11/23 07/17/24 Unknown History Physical Exam 2 Vital Signs: Vital Signs: Last Vital Signs Temp 98.6 F 07/17/24 01:02 Pulse 88 07/17/24 04:52 Resp 18 07/17/24 04:52 BP 150/90 H 07/17/24 04:52 Pulse Ox 98 07/17/24 04:52 O2 Del Method Room Air 07/17/24 04:52 BMI result Body Mass Index 24.2 Neuro: Other: he is alert and awake with normal spontaneity of speech fluency comprehension and his usual affect. Face was symmetrical. Visual degroot are full. There was no focal arm or leg weakness. Results Labs 07/17/24 04:51 07/17/24 05:58 Labs: Short CBC 07/16/24 07/17/24 Range/Units 21:27 04:51 WBC 5.5 10.1 (4.8-10.8) X10*3/uL Hgb 13.5 L 14.8 (14.0-18.0) g/dl Hct 38.8 L 43.4 (42.0-52.0) % Plt Count 153 L 166 (160-400) X10*3/uL BMP 07/16/24 07/17/24 21:27 05:58 Sodium 144 144 Potassium 3.9 3.7 Chloride 111 H 109 H Carbon Dioxide 25 26 BUN 12 13 Creatinine 0.75 0.69 Calcium 9.5 9.3 Liver Function 07/16/24 Range/Units 21:27 Total Bilirubin 0.2 (0.0-1.0) mg/dL Direct Bilirubin < 0.2 (0.0-0.5) mg/dL AST 18 (5-37) U/L ALT 11 (0-40) U/L Alkaline Phosphatase 38 L (39-117) U/L Albumin 4.2 (3.5-5.0) g/dL Head CT revealed mild cerebral atrophy affecting left cortical parietal areas. Assessment and Plan (1) Intractable seizure disorder: Status: Acute Recent breakthrough seizures are likely due to stress from his father's passing. In recent months, his underlying antiepileptic regimen has provided better relief than previous years. I recommend continuing the same. It included Depakote 250 mg 5 tablets twice a day, levetiracetam 500 mg 4 tablets twice a day, Xcopri 100 mg 1 at night with p.r.n. lorazepam for breakthrough seizures. Psychiatric consultation is also recommended to manage his mood. Procedures Date of Service Date of Service: 07/17/24
[2024-07-17] MEDS: Acetaminophen 325 MG TABLET 975 MG PO (11:09)
[2024-07-17] MEDS: levETIRAcetam 1,000 MG TABLET 2000 MG PO (11:09)
[2024-07-17 11:15] VITALS: BP 157/102; PULSE 111; RESP 16; TEMP 37.1; O2SAT 97
[2024-07-17 12:37] VITALS: BP 122/91; PULSE 98; RESP 20; TEMP 36.3; O2SAT 98
[2024-07-17] MEDS: 0.9 % Sodium Chloride Flush 3 ML SYRINGE IVFLUSH ×2 (16:33→21:32)
[2024-07-17] MEDS: clonazePAM 0.5 MG TABLET PO ×2 (16:33→21:31)
[2024-07-17 19:27] VITALS: BP 113/84; PULSE 94; RESP 17; TEMP 36.2; O2SAT 98
[2024-07-17] MEDS: CENOBAMATE 100 MG 1 EACH PO (21:32)
[2024-07-18] VITALS: BP 159/96; PULSE 88; RESP 19; TEMP 37.1; O2SAT 97
[2024-07-18] MEDS: Enoxaparin Sodium 40 MG/0.4 ML SYRINGE SUBCUT (00:24)
[2024-07-18] MEDS: levETIRAcetam 1,000 MG TABLET 2000 MG PO ×2 (00:24→13:38)
[2024-07-18] MEDS: Melatonin 3 MG TABLET 6 MG PO (00:30)
[2024-07-18 01:30] VITALS: PULSE 72; RESP 18
[2024-07-18 04:00] VITALS: BP 118/76; PULSE 100; RESP 19; TEMP 36.3; O2SAT 95
[2024-07-18 06:26] LABS: MANUAL DIFF FLAG NO
[2024-07-18 06:43] LABS: Anion Gap 11 (12-20); Blood Urea Nitrogen 13 mg/dL (9-16); Calcium 8.6 mg/dL (8.4-10.2); Carbon Dioxide 23 mmol/L (22-29); Chloride 110 mmol/L (96-108); Creatinine Clr Calc Pharmacy 121.1; Estimated Glomerular Filt Rate > 60; Glucose Random 98 mg/dL (60-115); Magnesium 1.9 mg/dL (1.6-2.6); Potassium 3.9 mmol/L (3.3-5.1); Sodium 140 mmol/L (135-145)
[2024-07-18 06:45] LABS: Basophils Percent Auto 0.4 % (0-2); Eosinophils Percent Auto 0.2 % (0-4); Hematocrit 39.4 % (42.0-52.0); Hemoglobin 13.7 g/dl (14.0-18.0); Imm Gran Abs Auto 0.01 X10*3/uL (0.00-0.03); Imm Gran Pct Auto 0.2 % (0.0-0.4); Lymphocytes Absolute Auto 1.3 X10*3/uL (1.2-4.9); Lymphocytes Percent Auto 28.1 % (20-40); Mean Corpuscular HGB Conc 34.8 g/dl (31.0-36.0); Mean Corpuscular Hemoglobin 33.3 pg (27.0-33.0); Mean Corpuscular Volume 95.9 fL (80.0-98.0); Mean Platelet Volume 11.3 fL (9.4-12.4); Monocytes Absolute Auto 0.9 X10*3/uL (0.1-1.2); Monocytes Percent Auto 19.2 % (2-11); Neutrophils Absolute Auto 2.4 x10*3/uL (2.0-8.3); Neutrophils Percent Auto 51.9 % (45-73); Platelet Count 149 X10*3/uL (160-400); Red Blood Count 4.11 X10*6/uL (4.60-5.80); Red Cell Distribution Width 13.1 % (11.0-16.0); White Blood Count 4.6 X10*3/uL (4.8-10.8)
[2024-07-18 08:00] VITALS: BP 102/76; PULSE 82; RESP 20; TEMP 36.8; O2SAT 98
--- NOTE | 2024-07-18 09:31 | PM.DS ---
DS: Providers Provider Date of Service: 07/18/24 Date of admission: 07/17/24 00:44 Date of discharge: 07/18/24 Primary care physician: Morgan Rutherford MD Consults: 07/17/24 00:49 Consult to Neurology Routine Consulting Provider: [facility] Reason for consultation: recurrent seizures Has provider been notified: No 07/17/24 10:42 Consult to Psychiatry [place]ine [place]ing [place] [facility] [place] Reason for consultation: life stressors leading to breakthrough seizures, ? adjust psych meds DS: Diagnosis Discharge Diagnosis (1) Intractable seizure disorder: Status: Acute (2) Anxiety disorder, unspecified: Status: Acute DS: Summary Hospital Course Hospital Course: HPI From admission H&P: Patient is a 49-year-old male with a past medical history significant for intractable seizure disorder, hyponatremia, SIADH, intellectual disability and anxiety, who presented to the ED yesterday after having 7 seizures. He lives in a care home in the seizures were witnessed. They were described as lasting about 10-20 seconds, tonic seizures. Patient reports during a seizure he usually calls out somebody's name for help. He is currently back at baseline and has no headache or confusion. He denies any recent illness, fever, chills, nausea or vomiting. He has no abdominal pain, chest pain or shortness of breath. He reports he has been taking his seizure medications as prescribed given by his care home. He also reports he recently lost his father and has been under a lot of emotional stress and feels that this has been triggering his seizures. Hospital Course: Patient was admitted to the hospital for breakthrough seizures. He was initiated on IV Keppra 2 g b.i.d.. Neurology was consulted. Neurology recommended continuation of his seizure medications as follows: Depakote 1000 mg in the morning and 1250 mg in the evening (previously was on 1250 mg twice a day), Keppra 200 mg twice a day, Xcopri 100 mg at bedtime with p.r.n. lorazepam for breakthrough seizures. Patient did not have any further seizures in the hospital. Neurology also recommended evaluation by Psychiatry who recommended follow up with his outpatient psych providers. Patient is seen and examined on day of discharge. He was initially sleepy and upon waking up reported that he did not sleep well. Once awake/alert, pt making jokes and eating lunch. He is stable for discharge back to his care home. Time Attestation Discharge Coordination Time (in mins): 45 Quality: Safe Use of Opioids Does Pt have an Active Cancer Diagnosis on the Problem List?: No Quality: Stroke Does the patient have a stroke diagnosis?: No Physical Exam Vital Signs: Vital Signs: Last Vital Signs Temp 98.3 F 07/18/24 08:00 Pulse 82 07/18/24 08:00 Resp 20 07/18/24 08:00 BP 102/76 07/18/24 08:00 Pulse Ox 98 07/18/24 08:00 O2 Del Method Room Air 07/18/24 08:00 BMI result Body Mass Index 24.2 Const: Other: awake and alert, NAD; +strabismus s1s2 lungs clear abd soft neuro - awake and alert, normal speech DS: Data Data Completed and Pending Labs on day of discharge: Laboratory Results - last 24 hr 07/18/24 05:43 WBC 4.6 L RBC 4.11 L Hgb 13.7 L Hct 39.4 L MCV 95.9 MCH 33.3 H MCHC 34.8 RDW 13.1 Plt Count 149 L MPV 11.3 Immature Gran % (Auto) 0.2 Neut % (Auto) 51.9 Lymph % (Auto) 28.1 [place] % (Auto) 19.2 H Eos % (Auto) 0.2 Baso % (Auto) 0.4 Lymph # (Auto) 1.3 [place] # (Auto) 0.9 Eos # (Auto) 0.0 Baso # (Auto) 0.0 Abs Immat Gran (auto) 0.01 Absolute Neuts (auto) 2.4 Absolute Nucleated RBC 0.000 Nucleated RBC % (auto) 0.0 Sodium 140 Potassium 3.9 Chloride 110 H Carbon Dioxide 23 Anion Gap 11 L BUN 13 Creatinine 0.68 Estim Creat Clear Calc 121.1 Estimated GFR > 60 Random Glucose 98 Calcium 8.6 D Magnesium 1.9 Discharge Plan Discharge Anticipated Discharge Date/Time: 07/18/24 14:30 Patient Disposition: Home, Self-Care Discharge Diagnosis: Breakthrough seizures Referrals: Morgan Rutherford MD [Primary Care Provider] - 1 Week Discharge Medications: New divalproex 250 mg tablet,delayed release (DR/EC) 1,000 mg PO QAM Qty: 90 0RF divalproex 250 mg tablet,delayed release (DR/EC) 1,250 mg PO QPM Qty: 90 0RF Continued multivitamin Tablet 1 tab PO DAILY cetirizine [Zyrtec] 10 mg Tablet 10 mg PO DAILY PRN (Reason: allergies) clonazepam 0.5 mg tablet 0.5 mg PO BID@1600,2000 docusate sodium [Colace] 100 mg Capsule 100 mg PO BID diclofenac sodium 1 % Gel 1 ea TOPICAL Q6H PRN (Reason: Pain (Scale Score 4-6)) cholecalciferol (vitamin D3) [Vitamin D3] 50 mcg (2,000 unit) Tablet 100 mcg PO DAILY omega 8-epz-tle-fish oil [Fish Oil] 1,000 mg (120 mg-180 mg) Capsule 1 cap PO DAILY acetaminophen [Tylenol] 325 mg Tablet 650 mg PO Q6H PRN (Reason: Pain or fever) loperamide [Imodium A-D] 2 mg Tablet 2 mg PO Q4H PRN (Reason: Loose Stool) Rx Instructions: administer after each loose stool until symptoms controlled; do not exceed 8 mg per 24 hrs clonidine HCl 0.1 mg Tablet 0.1 mg PO DAILY PRN (Reason: Agitation) dextromethorphan-guaifenesin [Karena-Tussin DM] 10-100 mg/5 mL Liquid 10 ml PO Q4H PRN (Reason: Cough) calcium carbonate 500 mg calcium (1,250 mg) Tablet 1,000 mg PO DAILY Xcopri 100 mg tablet 100 mg PO BEDTIME risperidone 0.5 mg tablet 0.5 mg PO BID clonazepam 1 mg Tablet 1 mg PO DAILY levetiracetam 1,000 mg Tablet 2,000 mg PO BID 30 Days Qty: 120 0RF Discontinued divalproex 250 mg Tablet,Delayed Release (Dr/Ec) 1,250 mg PO BID 30 Days Qty: 300 0RF Discharge Orders: Discharge Order (Routine); Ordered 07/18/24 Ordered By: Lew De La Torre Diet: Advance to usual diet Activity on Discharge: As tolerated Stand Alone Forms: Patient Portal Discharge page Print Language: [place] Care Plan Goals: To continue seizure medications as prescribed Health Concerns: Breakthrough siezres Plan of Treatment: Take your seizure medications as prescribed follow up with neurology and your therapist Assessment: see discharge summary Discharge Date/Time: 07/18/24 15:00
[2024-07-18] MEDS: Docusate Sodium 100 MG CAPSULE PO (10:57)
[2024-07-18] MEDS: Cholecalciferol (Vitamin D3) 25 MCG TABLET 100 MCG PO (10:57)
[2024-07-18] MEDS: Divalproex Sodium 250 MG TABLET.DR 1250 MG PO (10:57)
[2024-07-18] MEDS: Calcium Oyster Shell Elemental 500 MG TABLET 1000 MG PO (10:57)
[2024-07-18] MEDS: cloNIDine HCL 0.1 MG TABLET PO (10:57)
[2024-07-18] MEDS: 0.9 % Sodium Chloride Flush 3 ML SYRINGE IVFLUSH (10:58)
[2024-07-18] MEDS: clonazePAM 1 MG TABLET PO (10:58)
[2024-07-18] MEDS: Multivitamin TABLET 1 TAB PO (10:58)
[2024-07-18] MEDS: risperiDONE 0.5 MG TABLET PO (10:59)
--- NOTE | 2024-07-18 11:39 | PM.PSYCN ---
History of Present Illness Date of Service: 07/18/2024 Chief Complaint: Seizures Requesting physician: Lew De La Torre Discussed with referring provider: Yes Sources of Information: patient interviewed, chart reviewed and crisis/core team assessment reviewed HPI Narrative: Mr. Anaya is a 49 year-old male with hx of developmental delay, irretractable seizures, mood disorder who has been in the hospital due to uncontrolled seizure disorder. He sees Dr. Holland for neurology outpatient and he also saw him during this admission. Dr. Holland had recommended follow up with psychiatry as pt's father is not doing well and this may have had negative emotional impact on patient exacerbating his seizure disorder. Pt is now medically cleared and about to be discharged to . This commercial underwriter attempted to see pt but he was asleep. Not able to wake up when calling his name several times. Called his sister Kimberly who is listed as guardian- [phone]. Left VM with call back number. Past Psychiatric History: OP: Dr. Evin Baeza [facility] Medical History (Updated 07/18/24 @ 12:57 by Mery Bullock NP) Intellectual disability Intractable seizure disorder Intractable epilepsy Epileptic seizure Hyponatremia History of SIADH Seizure disorder Anxiety disorder, unspecified Surgical History No pertinent past surgical history Diagnostics Vital Signs (24Hr): Vital Signs - 24 hr 07/17/24 12:37 07/17/24 19:27 07/18/24 00:00 Temperature 97.4 F 97.2 F 98.7 F Pulse Rate 98 94 88 Respiratory Rate 20 17 19 Blood Pressure 122/91 H 113/84 159/96 H Pulse Oximetry 98 98 97 Oxygen Delivery Method Room Air Room Air Room Air 07/18/24 01:30 07/18/24 04:00 07/18/24 08:00 Temperature 97.4 F 98.3 F Pulse Rate 72 100 82 Respiratory Rate 18 19 20 Blood Pressure 118/76 102/76 Pulse Oximetry 95 98 Oxygen Delivery Method Room Air Room Air BMI result Body Mass Index 24.2 Labs 07/18/24 05:43 07/18/24 05:43 Labs: Laboratory Results - last 48 hr 07/16/24 07/17/24 07/17/24 21:27 04:51 05:58 WBC 5.5 10.1 RBC 4.05 L 4.48 L Hgb 13.5 L 14.8 Hct 38.8 L 43.4 MCV 95.8 96.9 MCH 33.3 H 33.0 MCHC 34.8 34.1 RDW 13.0 13.1 Plt Count 153 L 166 MPV 10.8 10.7 Immature Gran % (Auto) 0.4 0.3 Neut % (Auto) 50.6 69.1 Lymph % (Auto) 37.5 20.0 [place] % (Auto) 9.1 10.0 Eos % (Auto) 2.0 0.2 Baso % (Auto) 0.4 0.4 Lymph # (Auto) 2.1 2.0 [place] # (Auto) 0.5 1.0 Eos # (Auto) 0.1 0.0 Baso # (Auto) 0.0 0.0 Abs Immat Gran (auto) 0.02 0.03 Absolute Neuts (auto) 2.8 7.0 Absolute Nucleated RBC 0.000 0.000 Nucleated RBC % (auto) 0.0 0.0 Sodium 144 144 Potassium 3.9 3.7 Chloride 111 H 109 H Carbon Dioxide 25 26 Anion Gap 12 13 BUN 12 13 Creatinine 0.75 0.69 Estim Creat Clear Calc 109.8 119.4 Estimated GFR > 60 > 60 Random Glucose 109 94 Calcium 9.5 9.3 Magnesium Total Bilirubin 0.2 Direct Bilirubin < 0.2 AST 18 ALT 11 Alkaline Phosphatase 38 L Total Protein 6.9 Albumin 4.2 Valproic Acid 139.5 H* 07/18/24 05:43 WBC 4.6 L RBC 4.11 L Hgb 13.7 L Hct 39.4 L MCV 95.9 MCH 33.3 H MCHC 34.8 RDW 13.1 Plt Count 149 L MPV 11.3 Immature Gran % (Auto) 0.2 Neut % (Auto) 51.9 Lymph % (Auto) 28.1 [place] % (Auto) 19.2 H Eos % (Auto) 0.2 Baso % (Auto) 0.4 Lymph # (Auto) 1.3 [place] # (Auto) 0.9 Eos # (Auto) 0.0 Baso # (Auto) 0.0 Abs Immat Gran (auto) 0.01 Absolute Neuts (auto) 2.4 Absolute Nucleated RBC 0.000 Nucleated RBC % (auto) 0.0 Sodium 140 Potassium 3.9 Chloride 110 H Carbon Dioxide 23 Anion Gap 11 L BUN 13 Creatinine 0.68 Estim Creat Clear Calc 121.1 Estimated GFR > 60 Random Glucose 98 Calcium 8.6 D Magnesium 1.9 Total Bilirubin Direct Bilirubin AST ALT Alkaline Phosphatase Total Protein Albumin Valproic Acid Mental Status Exam Mental Status Exam Narrative: pt asleep. limited assessment. Medications Medications Current Medications Acetaminophen (Acetaminophen 325 Mg Tablet) 975 mg PO Q6H PRN PRN Reason: Pain, Mild 1-3,fever,headache Last Admin: 07/17/24 11:09 Dose: 975 mg Calcium Carbonate (Calcium Carbonate 750 Mg Tab.Chew) 750 mg PO Q4H PRN PRN Reason: Heartburn Last Admin: 07/17/24 03:47 Dose: 750 mg Calcium Carbonate (Calcium Oyster Shell Elemental 500 Mg Tablet) 1,000 mg PO DAILY [facility] Last Admin: 07/18/24 10:57 Dose: 1,000 mg Clonazepam (Clonazepam 1 Mg Tablet) 1 mg PO DAILY [facility] Last Admin: 07/18/24 10:58 Dose: 1 mg Clonazepam (Clonazepam 0.5 Mg Tablet) 0.5 mg PO BID@1600,2000 [facility] Last Admin: 07/17/24 21:31 Dose: 0.5 mg Clonidine HCl (Clonidine Hcl 0.1 Mg Tablet) 0.1 mg PO DAILY [facility]; Protocol Last Admin: 07/18/24 10:57 Dose: 0.1 mg Divalproex Sodium (Divalproex Sodium 250 Mg Tablet.Dr) 1,250 mg PO BID [facility] Last Admin: 07/18/24 10:57 Dose: 1,250 mg Docusate Sodium (Docusate Sodium 100 Mg Capsule) 100 mg PO BID [facility] Last Admin: 07/18/24 10:57 Dose: 100 mg Enoxaparin Sodium (Enoxaparin Sodium 40 Mg/0.4 Ml Syringe) 40 mg SUBCUT Q24H [facility] Last Admin: 07/18/24 00:24 Dose: 40 mg Levetiracetam (Levetiracetam 1,000 Mg Tablet) 2,000 mg PO Q12H [facility] Last Admin: 07/18/24 00:24 Dose: 2,000 mg Lorazepam (Lorazepam 2 Mg/Ml Vial) 2 mg IVPUSH Q2H PRN PRN Reason: Seizures Magnesium Hydroxide (Milk Of Magnesia 30 Ml Oral.Susp) 30 ml PO DAILY PRN PRN Reason: Constipation Melatonin (Melatonin 3 Mg Tablet) 6 mg PO BEDTIME PRN PRN Reason: Insomnia Last Admin: 07/18/24 00:30 Dose: 6 mg Multivitamins/Vitamin C (Multivitamin Tablet) 1 tab PO DAILY [facility] Last Admin: 07/18/24 10:58 Dose: 1 tab Non-Formulary Medication (Cenobamate [Xcopri]) 100 mg PO BEDTIME [facility] Ondansetron HCl (Ondansetron Hcl 4 Mg/2 Ml Vial) 4 mg IVPUSH Q8H PRN PRN Reason: Nausea and Vomiting Last Admin: 07/17/24 03:47 Dose: 4 mg Risperidone (Risperidone 0.5 Mg Tablet) 0.5 mg PO BID [facility] Last Admin: 07/18/24 10:59 Dose: 0.5 mg Sodium Chloride (0.9 % Sodium Chloride Flush 3 Ml Syringe) 3 ml IVFLUSH QSHIFT [facility] Last Admin: 07/18/24 10:58 Dose: 3 ml Vitamin D (Cholecalciferol (Vitamin D3) 25 Mcg Tablet) 100 mcg PO DAILY [facility] Last Admin: 07/18/24 10:57 Dose: 100 mcg Allergies Allergies Allergy/AdvReac Type Severity Reaction Status Date / Time No Known Allergies Allergy Verified 07/16/24 20:00 [No Known Allergies*] Assessment & Plan Assessment & Plan (1) Mood disorder: Status: Acute Code(s): F39 - Unspecified mood [affective] disorder (2) Intellectual disability: Status: Acute Code(s): F79 - Unspecified intellectual disabilities Plan is a 49 year-old male with hx of intractable seizure disorder. He was seen by neurology, Dr. Holland who is also his OP neurologist. He recommended psychiatric assessment to address emotional distress he is currently going through as his father is ill and not able to care for him as he used to. It appears emotional distress increasing seizure frequency. Attempted to contact guardian, who is his sister Kimberly, left VM. Pt should follow up with OP psychiatrist, Dr. Evin Baeza for further medication adjustments. No imminent safety concerns at this point noted nor reported to required inpt psych admission or urgent intervention or medication changes. Pt can be discharged back to and follow up OP. Total time managing care of this patient today ____ minutes.
[2024-07-18 12:00] VITALS: BP 95/57; PULSE 76; RESP 18; TEMP 36.8; O2SAT 97
--- NOTE | 2024-07-18 12:31 | MHC.CM.PN ---
URMILA spoke with Skilled Nursing Ethernet Network Architect/Herb @ [phone] regarding Patient's possible return today. Herb indicated that the Skilled Nursing will transport to home and he is faxing required paperwork to be filled out by the MD. URMILA will follow.
--- NOTE | 2024-07-18 13:09 | MHC.CM.PN ---
Per , Patient is medically cleared for dc to return to his [facility] today; Psych has seen Patient. URMILA spoke with Guardian/Sister/Kimberly @ [phone] who is aware of and in agreement with the dc plan. Per Kimberly's request, will be calling her to respond to a few specific clinical questions. is completing Snf paperwork and [facility] [employer] will arrive shortly to transport Patient home. Last IMM addressed yesterday.
[2024-07-18 13:34] VITALS: BP 102/75; RESP 18
[2024-07-20 10:48] LABS: Levetiracetam Keppra 73.6 mcg/mL (6.0-46.0)
== END 2024-07-18 15:00 | disposition home or self-care (01) | DRG 101 ==
LOC: HO.ED 21:09 → HO.EDOVER 07-17 00:50 → HO.IMC 07-17 10:35
PROVIDERS: Emergency Medicine Emergency Medical Services; Admitting Provider Physician Assistant; Emergency Provider Emergency Medicine; PCP Family Medicine; Visit Provider Family Medicine
DX: G40.919 Epilepsy, unspecified, intractable, without status epilepticus (principal); G93.49 Other encephalopathy; E22.2 Syndrome of inappropriate secretion of antidiuretic hormone; F39 Unspecified mood [affective] disorder; F79 Unspecified intellectual disabilities; F41.9 Anxiety disorder, unspecified; Z63.4 Disappearance and death of family member; Z79.899 Other long term (current) drug therapy
CPT/HCPCS: 36415; 80048; 80076; 80164; 80177; 83735; 85025; 93005; 99285; J1650; J1953; J2405

== ENCOUNTER → 2024-07-16 19:53 | Outpatient (BNV) | payer MEDICARE, MEDICAID, SELFPAY | PROVIDERS: Admitting Provider Physician Assistant; Emergency Provider Emergency Medicine; PCP Family Medicine; Visit Provider Internal Medicine Cardiovascular Disease | DX: G40.909 Epilepsy, unspecified, not intractable, without status epilepticus (principal) | CPT/HCPCS: 93010 ==

== ENCOUNTER → 2024-07-17 00:44 | Outpatient (BNV) | payer MEDICARE, MEDICAID, SELFPAY | PROVIDERS: Admitting Provider Physician Assistant; Emergency Provider Emergency Medicine; Visit Provider Physician Assistant | DX: G40.919 Epilepsy, unspecified, intractable, without status epilepticus (principal); F41.9 Anxiety disorder, unspecified | CPT/HCPCS: 99223; 99232; 99239 ==

== ENCOUNTER → 2024-07-17 00:44 | Outpatient (BNV) | payer MEDICARE, MEDICAID, SELFPAY | PROVIDERS: Admitting Provider Physician Assistant; Emergency Provider Emergency Medicine; PCP Family Medicine; Visit Provider Social Worker | DX: F39 Unspecified mood [affective] disorder (principal); F79 Unspecified intellectual disabilities | CPT/HCPCS: 99232 ==

== ENCOUNTER → 2024-07-17 00:44 | Outpatient (BNV) | payer MEDICARE, MEDICAID, SELFPAY | PROVIDERS: Admitting Provider Physician Assistant; Emergency Provider Emergency Medicine; PCP Family Medicine; Visit Provider Psychiatry & Neurology Neurology | DX: G40.919 Epilepsy, unspecified, intractable, without status epilepticus (principal) | CPT/HCPCS: 99222 ==

== ENCOUNTER 2024-12-27 08:16 | Emergency (ER) | payer MEDICARE, MEDICAID, SELFPAY ==
--- NOTE | ~2024-12-27 | US_ITS ---
EXAMINATION: US SCROTUM HISTORY: testicular pain, injury. COMPARISON: There are no prior studies available for comparison. FINDINGS: Real-time grayscale ultrasound imaging of the scrotum was performed. RIGHT TESTICLE: The right testis measures 4.0 x 2.4 x 2.8 cm and demonstrates normal homogeneous echotexture. No masses are seen. The right testis demonstrates normal color Doppler flow. RIGHT EPIDIDYMIS: There is a 4 mm hypoechoic focus in the epididymal head which may represent a complex cyst. LEFT TESTICLE: The left testis measures 4.0 x 2.3 x 2.2 cm and demonstrates normal homogeneous echotexture. No masses are seen. The left testis demonstrates normal color Doppler flow. LEFT EPIDIDYMIS: Normal in size, shape, and vascularity. VARICOCELE: None. HYDROCELE: There is a moderate left hydrocele and a small right hydrocele. There is a left scrotal miguel angel. OTHER COMMENTS: None. US/US scrotum IMPRESSION: Bilateral hydroceles, moderate on the left and small on the right. 4 mm hypoechoic focus of the lateral right epididymal head which may represent a complex cyst. Electronically signed by: Allen García MD 12/27/2024 10:19 AM EDT
[2024-12-27 08:21] VITALS: BP 106/70; BP 126/84; PULSE 83; PULSE 86; RESP 16; TEMP 36.6; O2SAT 96; O2SAT 98; BMI 23.5
[2024-12-27 08:26] VITALS: BP 111/73; PULSE 84; RESP 16; O2SAT 97
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
--- OUTSIDE RECORDS SUMMARY | 2024-12-27 09:53 | XMS_ITS | Clinical Summary ---
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 Name Role Phone Morgan Rutherford MD Primary Care Provider [phone] Allergies No known active allergies Social History Tobacco Use Types Packs/Day Years Used Date Smoking Tobacco: Never Assessed Sex and Gender Information Value Date Recorded Sex Assigned at Not on file Legal Sex Male 7:34 AM EST Gender Identity Not on file Sexual Orientation Not on file Last Filed Vital Signs Vital Sign Reading Time Taken Comments Blood Pressure - - Pulse - - Temperature - - Respiratory Rate - - Oxygen Saturation - - Inhaled Oxygen Concentration - - Weight - - Height 157.5 cm (5' 2 ) 09/20/2024 10:56 AM EDT Body Mass Index - - Plan of Treatment Health Maintenance Due Date Last Done Comments Hepatitis B Vaccines (1 of 3 - 19+ 3-dose series) 1996 COVID-19 Vaccine ( season) 2024 06/24/2021, 08/19/2020, 07/29/2020 Cholesterol Screening (Lipid Panel) 07/10/2024 Colorectal Cancer Screening: Colonoscopy 07/10/2024 Depression Screening 07/10/2024 HIV Screening 07/10/2024 Hepatitis C Screening 07/10/2024 Medicare Annual Wellness Visit 07/10/2024 Social Influencers of Health Screening 07/10/2024 DTaP,Tdap,and Td Vaccines (2 - Td or Tdap) 03/13/2029 03/13/2019 Pneumococcal Vaccine: Pediatrics (0 to 5 Years) and At-Risk Patients (6 to 64 Years) Completed 09/28/2022, 01/26/2017 Influenza Vaccine Completed 05/10/2024, , 03/22/2017, Additional history exists HIB Vaccines Aged Out No longer eligi ble based on patient's age to complete this topic HPV Vaccines Aged Out No longer eligi ble based on patient's age to complete this topic Hepatitis A Vaccines Aged Out No long er eligible based on patient's age to complete this topic IPV Vaccines Aged Out No longer eligi ble based on patient's age to complete this topic MMR Vaccines Aged Out No longer eligi ble based on patient's age to complete this topic Meningococcal ACWY Vaccine Aged Out N o longer eligible based on patient's age to complete this topic Meningococcal B Vaccine Aged Out No l onger eligible based on patient's age to complete this topic RSV Immunization Patients Under 20 months Aged Out No longer eligible based on patient's age to complete this topic Varicella Vaccines Aged Out No longer eligible based on patient's age to complete this topic Insurance MEDICARE [place]ICA[place] - [place] Care Teams Asbestos Worker Helper Relationship Specialty Start Date End Date Morgan Rutherford MD [address] [facility] [place] [address] PCP - General Family Medicine 07/10/24
--- NOTE | 2024-12-27 09:55 | PC.NURSE ---
U/S at the bedside
[2024-12-27 10:51] VITALS: BP 107/75; PULSE 66; RESP 16; TEMP 36.7; O2SAT 98
== END 2024-12-27 10:52 | disposition home or self-care (01) ==
PROVIDERS: Emergency Provider Emergency Medicine
DX: N50.82 Scrotal pain (principal); Z79.899 Other long term (current) drug therapy
CPT/HCPCS: 76870; 99284

== ENCOUNTER → 2024-12-27 09:19 | Outpatient (BNV) | payer MEDICARE, MEDICAID, SELFPAY | PROVIDERS: Emergency Provider Emergency Medicine; Visit Provider Radiology Diagnostic Radiology | DX: N50.811 Right testicular pain (principal); N50.812 Left testicular pain | CPT/HCPCS: 76870; 93975 ==

== ENCOUNTER 2025-02-05 13:30 | Emergency (ER) | payer MEDICARE, MEDICAID, SELFPAY ==
[2025-02-05 13:56] VITALS: BP 132/83; PULSE 78; RESP 16; TEMP 36.6; O2SAT 99; BMI 24.4
--- NOTE | 2025-02-05 13:57 | ED.GENADULT ---
HPI - General Adult General Chief complaint: General Medical Stated complaint: pt states seizure today and wants to get check Time Seen by Provider: 02/05/25 16:45 Source: patient and other Mode of arrival: ambulatory Limitations: no limitations History of Present Illness ED Provider: HPI narrative: 49-year-old male with intellectual disability, anxiety, history of seizures, on Depakote and levetiracetam, has episodes of shaking and concerned that the has multiple seizures when there was only as 2 staff members available whether they are going to be able to provide care for him. Staff member states that he has not had any seizures. But patient wanted to be brought to the emergency department for re-evaluation. Related Data Home Medications ?Medication ?Instructions ?Recorded ?Confirmed cetirizine 10 mg tablet (Zyrtec) 10 mg PO DAILY PRN allergies 12/31/21 07/17/24 cholecalciferol (vitamin D3) 50 100 mcg PO DAILY 12/31/21 07/17/24 mcg (2,000 unit) tablet (Vitamin D3) clonazepam 0.5 mg tablet 0.5 mg PO BID@1600,2000 12/31/21 07/17/24 diclofenac sodium 1 % topical gel 1 ea topical Q6H PRN Pain (Scale 12/31/21 07/17/24 Score 4-6) docusate sodium 100 mg capsule 100 mg PO BID 12/31/21 07/17/24 (Colace) multivitamin 1 tab PO DAILY 12/31/21 07/17/24 omega 7-sqs-fnn-fish oil 1,000 mg 1 cap PO DAILY 12/31/21 07/17/24 (120 mg-180 mg) capsule (Fish Oil) acetaminophen 325 mg tablet 650 mg PO Q6H PRN Pain or fever 04/08/22 07/17/24 (Tylenol) loperamide 2 mg tablet (Imodium 2 mg PO Q4H PRN Loose Stool 04/08/22 07/17/24 A-D) clonidine HCl 0.1 mg tablet 0.1 mg PO DAILY PRN Agitation 06/12/22 07/17/24 calcium carbonate 1,000 mg PO DAILY 07/04/23 07/17/24 dextromethorphan-guaifenesin 10 10 ml PO Q4H PRN Cough 07/04/23 07/17/24 mg-100 mg/5 mL oral liquid (Kyle DM) clonazepam 1 mg tablet 1 mg PO DAILY 09/11/23 07/17/24 risperidone 0.5 mg tablet 0.5 mg PO BID 09/11/23 07/17/24 Previous Rx's ?Medication ?Instructions ?Recorded levetiracetam 1,000 mg tablet 2,000 mg (2 x 1,000 mg) PO BID 30 09/12/23 days #120 tabs cenobamate 100 mg tablet (Xcopri) 100 mg PO BEDTIME #90 tabs 01/17/25 divalproex 250 mg tablet,delayed 1,000 mg (4 x 250 mg) PO QAM #360 01/24/25 release tabs divalproex 250 mg tablet,delayed 1,250 mg (5 x 250 mg) PO QPM #450 01/24/25 release tabs Allergies Allergy/AdvReac Type Severity Reaction Status Date / Time No Known Allergies (No Known Allergy Verified 02/05/25 14:01 Allergies*) Review of Systems Constitutional: Constitutional: Reports as per [facility] Past Medical History Medical History Recurrent seizures Intellectual disability Intractable seizure disorder Intractable epilepsy Epileptic seizure Hyponatremia History of SIADH Seizure disorder Anxiety disorder, unspecified Surgical History No pertinent past surgical history Family History Family History Other No family history of coronary artery disease Social History Social History Household Members: Other Household Members Other:: custodial Housing: Other Housing Other:: custodial Do you presently have visiting nurse or other home services: Yes (25/01 staff at custodial) Alcohol intake: never Patient Tobacco Use Status: Never used Tobacco e-Cigarette/Vaping Use: Never Used Second Hand Smoke Exposure: No Advance Directives: Yes Advance Directives on File: Yes Advance Directives Date on File: 02/06/22 service: No Current occupational status: disabled Physical Exam ED Vital Signs: Vital Signs - 24 hr 02/05/25 13:56 Temperature 98 F Pulse Rate 78 Respiratory Rate 16 Blood Pressure 132/83 Pulse Oximetry 99 Oxygen Delivery Method Room Air BMI result Body Mass Index 24.4 Const Other: Patient examined on the gurney He is alert to self, location situation He is moving upper and lower extremities symmetrically there is no obvious facial or head injury He is at his baseline from my understanding and discussion with director of group counseling program. Course Course Course Narrative: RME performed by Candice Tena PA-C. Patient is a 49 year old assigned male at presenting to the emergency department with concerns after a seizure. Patient states he believes he had a seizure and wants his levels to be checked. [facility] staff at the bed side. Detailed physical exam and review of systems are deferred to the rn clinician. Labsordered. Patient placed back in the waiting room pending room availability and results. Medical Decision Making Medical Decision Making [facility] Narrative: Patient is Depakote levels are within normal range levetiracetam is pending, otherwise he is well-appearing there was no evidence for trauma he has has not had a seizure has not had any postictal episodes, he is anxious I have reassured him we will discharge Differential Diagnosis Differential Diagnoses: The differential diagnosis associated with the presentation includes (Seizures, nonepileptic seizures, ACS, dysrhythmia) Lab Data [facility] Lab Attestation statement: I reviewed the patient's lab results. 02/05/25 14:11 02/05/25 14:11 Labs: Lab Results 02/05/25 Range/Units 14:11 WBC 4.6 L (4.8-10.8) X10*3/uL RBC 4.22 L (4.60-5.80) X10*6/uL Hgb 14.0 (14.0-18.0) g/dl Hct 40.6 L (42.0-52.0) % MCV 96.2 (80.0-98.0) fL MCH 33.2 H (27.0-33.0) pg MCHC 34.5 (31.0-36.0) g/dl RDW 12.7 (11.0-16.0) % Plt Count 175 (160-400) X10*3/uL MPV 10.2 (9.4-12.4) fL Immature Gran % (Auto) 0.4 (0.0-0.4) % Neut % (Auto) 51.6 (45-73) % Lymph % (Auto) 37.4 (20-40) % [place] % (Auto) 10.2 (2-11) % Eos % (Auto) 0.0 (0-4) % Baso % (Auto) 0.4 (0-2) % Lymph # (Auto) 1.7 (1.2-4.9) X10*3/uL [place] # (Auto) 0.5 (0.1-1.2) X10*3/uL Eos # (Auto) 0.0 (0.0-0.4) X10*3/uL Baso # (Auto) 0.0 (0.0-0.2) X10*3/uL Abs Immat Gran (auto) 0.02 (0.00-0.03) X10*3/uL Absolute Neuts (auto) 2.4 (2.0-8.3) x10*3/uL Absolute Nucleated RBC 0.000 (0.0-0.012) X10*3/uL Nucleated RBC % (auto) 0.0 (0.0-0.2) /100WBC Sodium 142 (135-145) mmol/L Potassium 4.0 (3.3-5.1) mmol/L Chloride 108 (96-108) mmol/L Carbon Dioxide 28 (22-29) mmol/L Anion Gap 10 L (12-20) BUN 15 (9-16) mg/dL Creatinine 0.67 (0.5-1.4) mg/dL Estim Creat Clear Calc 109.6 Estimated GFR > 60 Random Glucose 90 (60-115) mg/dL Calcium 9.7 D (8.4-10.2) mg/dL Magnesium 1.8 (1.6-2.6) mg/dL Total Bilirubin 0.4 (0.0-1.0) mg/dL AST 19 (5-37) U/L ALT 12 (0-40) U/L Alkaline Phosphatase 42 (39-117) U/L Total Protein 7.5 (6.5-8.0) g/dL Albumin 4.6 (3.5-5.0) g/dL Valproic Acid 92.5 (50.0-100.0) mcg/mL Independent Historian Clinical information obtained from an independent historian. History obtained from or confirmed by: Other (ax survey worker) External Record Review External record reviewed: Outpatient record Social Determinants Patient?s care significantly limited by Social Determinants of Health including: Other Social Determinant of Health (Intellectual disability) Discharge Plan Discharge Clinical Impression: Intellectual disability Anxiety disorder, unspecified Qualifiers: Anxiety disorder type: unspecified anxiety disorder Qualified Code(s): F41.9 - Anxiety disorder, unspecified Patient Disposition: Home, Self-Care Additional Instructions: Evaluated in the emergency department, no medication changes, Depakote levels unremarkable, levetiracetam levels take up to 48 hours, the rest of the workup has been unremarkable we will be discharged back to custodial Prescriptions: No Action Xcopri 100 mg tablet 100 mg PO BEDTIME Qty: 90 0RF divalproex 250 mg tablet,delayed release (DR/EC) 1,000 mg PO QAM Qty: 360 0RF divalproex 250 mg tablet,delayed release (DR/EC) 1,250 mg PO QPM Qty: 450 0RF multivitamin Tablet 1 tab PO DAILY cetirizine [Zyrtec] 10 mg Tablet 10 mg PO DAILY PRN (Reason: allergies) clonazepam 0.5 mg tablet 0.5 mg PO BID@1600,2000 docusate sodium [Colace] 100 mg Capsule 100 mg PO BID diclofenac sodium 1 % Gel 1 ea TOPICAL Q6H PRN (Reason: Pain (Scale Score 4-6)) cholecalciferol (vitamin D3) [Vitamin D3] 50 mcg (2,000 unit) Tablet 100 mcg PO DAILY omega 2-qpl-tgv-fish oil [Fish Oil] 1,000 mg (120 mg-180 mg) Capsule 1 cap PO DAILY acetaminophen [Tylenol] 325 mg Tablet 650 mg PO Q6H PRN (Reason: Pain or fever) loperamide [Imodium A-D] 2 mg Tablet 2 mg PO Q4H PRN (Reason: Loose Stool) Rx Instructions: administer after each loose stool until symptoms controlled; do not exceed 8 mg per 24 hrs clonidine HCl 0.1 mg Tablet 0.1 mg PO DAILY PRN (Reason: Agitation) dextromethorphan-guaifenesin [Karena-Tussin DM] 10-100 mg/5 mL Liquid 10 ml PO Q4H PRN (Reason: Cough) calcium carbonate 500 mg calcium (1,250 mg) Tablet 1,000 mg PO DAILY risperidone 0.5 mg tablet 0.5 mg PO BID clonazepam 1 mg Tablet 1 mg PO DAILY levetiracetam 1,000 mg Tablet 2,000 mg PO BID 30 Days Qty: 120 0RF Print Language: Ecuadorean
[2025-02-05 14:15] LABS: MANUAL DIFF FLAG NO
[2025-02-05 14:19] LABS: Hematocrit 40.6 % (42.0-52.0); Hemoglobin 14.0 g/dl (14.0-18.0); Imm Gran Abs Auto 0.02 X10*3/uL (0.00-0.03); Imm Gran Pct Auto 0.4 % (0.0-0.4); Lymphocytes Absolute Auto 1.7 X10*3/uL (1.2-4.9); Mean Corpuscular HGB Conc 34.5 g/dl (31.0-36.0); Mean Corpuscular Hemoglobin 33.2 pg (27.0-33.0); Mean Corpuscular Volume 96.2 fL (80.0-98.0); NRBC Abs Auto 0.000 X10*3/uL (0.0-0.012); NRBC Pct Auto 0.0 /100WBC (0.0-0.2); Platelet Count 175 X10*3/uL (160-400); Red Blood Count 4.22 X10*6/uL (4.60-5.80); White Blood Count 4.6 X10*3/uL (4.8-10.8)
[2025-02-05 14:39] LABS: Alanine Aminotransferase 12 U/L (0-40); Albumin Level 4.6 g/dL (3.5-5.0); Alkaline Phosphatase 42 U/L (39-117); Anion Gap 10 (12-20); Aspartate Amino Transferase 19 U/L (5-37); Blood Urea Nitrogen 15 mg/dL (9-16); Calcium 9.7 mg/dL (8.4-10.2); Carbon Dioxide 28 mmol/L (22-29); Chloride 108 mmol/L (96-108); Creatinine Clr Calc Pharmacy 109.6; Estimated Glomerular Filt Rate > 60; Magnesium 1.8 mg/dL (1.6-2.6); Potassium 4.0 mmol/L (3.3-5.1); Sodium 142 mmol/L (135-145); Total Protein 7.5 g/dL (6.5-8.0)
--- OUTSIDE RECORDS SUMMARY | 2025-02-05 16:49 | XMS_ITS | Clinical Summary ---
Author Organization [address] [facility] Address [address] [place] [address] Phone Care Team Providers Care Locks Inspector Name Role Phone Morgan Rutherford MD Primary Care Provider [phone]- [phone] Allergies No known active allergies Social History [...] Vaccine ( season) 2024 06/24/2021, 08/19/2020, 07/29/2020 Depression Screening 07/05/2024 Cholesterol Screening (Lipid Panel) 07/10/2024 Colorectal Cancer Screening: Colonoscopy 07/10/2024 HIV Screening 07/10/2024 Hepatitis C Screening 07/10/2024 Medicare Annual Wellness Visit 07/10/2024 Social Influencers of Health Screening 07/10/2024 Influenza Vaccine (#1) 2025 , 06/24/2018, 03/22/2017, Additional history exists DTaP,Tdap,and Td Vaccines (2 - Td or Tdap) 03/13/2029 03/13/2019 Pneumococcal Vaccine: Pediatrics (0 to 5 Years) and At-Risk Patients (6 to 49 Years) Completed 09/28/2022, 01/26/2017 HIB Vaccines Aged Out No longer eligi [...] Insurance MEDICARE MEDICAID - [place] Care Teams Locks Inspector Relationship Specialty Start Date End Date Morgan Rutherford MD [address] [place] [address] PCP - General Family Medicine 07/10/24
--- OUTSIDE RECORDS SUMMARY | 2025-02-05 16:49 | XMS_ITS | Clinical Summary ---
Author Organization [facility] Address [address] [place] [id number] Care Team Providers Care Guard Captain Name Role Phone Unavailable Primary Care Provider Unavailabl e Allergies No known active allergies Medications risperiDONE (RisperDAL) 0.5 MG tablet 02/27/2022 Active LORazepam (ATIVAN) 2 MG tablet 01/08/2022 Active levETIRAcetam (KEPPRA) 500 MG tablet 03/04/2022 Active ibuprofen (ADVIL,MOTRIN) 800 MG tablet Take 800 mg by mouth 08/23/2018 Active Docusate Sodium (DSS) 100 MG capsule Take 100 mg by mouth twice a day 07/10/2021 Active divalproex (DEPAKOTE) 500 MG EC tablet 03/17/2022 Active cloNIDine (CATAPRES) 0.1 MG tablet Take 0.1 mg by mouth 06/24/2018 Active clonazePAM (KlonoPIN) 0.5 MG tablet 02/27/2022 Active cholecalciferol (VITAMIN D-3) 1.25 MG (33884 UT) tablet Take 200 mcg by mouth daily Active cetirizine (ZyrTEC) 10 MG tablet Take 10 mg by mouth 07/11/2021 Active acetaminophen (TYLENOL) 325 MG tablet Take 650 mg by mouth every 6 (six) hours if needed 07/11/2021 Active Active Problems Problem Noted Date Diagnosed Date Prescribed medication regimen behavior finding 0 03/25/2022 Osteoporosis 03/25/2022 Chronic back pain 03/25/2022 Anoxic encephalopathy 03/25/2022 Cerebral palsy 09/18/2021 Hyponatremia with decreased serum osmolality Overview (03/25/2022): Last Assessment & Plan: Chronic issue with previous sodium levels 126-133. Urine studies suggest SIADH. NA level dropped to 123 and he received several boluses of hypertonic saline, then started on urea on 09/16. Sodium level still fluctuating between 125/128 over last 24 hours --Continue urea 15 mg twice daily, fluid restriction 1200 cc --Continue close monitoring of labs --As above, will review antiepileptic regimen with neurology in light of hyponatremia and recent seizures Seizure 09/12/2021 Overview (03/25/2022): neurology at [facility] Last Assessment & Plan: He has a history of epileptic and nonepileptic events, captured on video EEG in the past. On Depakote, but this may be prescribed by psychiatry. Low carbamazepine and valproic acid levels at time of admission raise concern for the possibility of missed doses. Repeat levels improved. Findings reviewed with patient's father yesterday at the bedside. He notes that Chase is very good about taking medications, also very knowledgeable, though there has been staffing turnover in the alf and unclear if this could be impacting his medications. --Have called out to [facility] neurology to discussed antiepileptic therapy light of the fact that he is doing well on Keppra and that his other antiepileptics could be contributing to SIADH and hyponatremia. --For now, continue carbamazepine, valproic acid and Keppra as scheduled Panic disorder (episodic paroxysmal anxiety) Autism spectrum disorder 12/18/2009 Immunizations Immunization Administration Dates Next Due Influenza Whole 05/12/2011 Influenza, Unspecified 06/24/2018,03/22/2017,,06/16/2013 Pfizer SARS-COV-2 08/19/2020,07/29/2020 Pneumococcal Polysaccharide 01/26/2017 Td, Unspecified 03/13/2019 Social History Tobacco Use Types Packs/Day Years Used Date Smoking Tobacco: Never Passive Smoke Exposure: Never Smokeless Tobacco: Never Tobacco Cessation:Counseling Given: Not Answered Alcohol Use Standard Drinks/Week Comments Never 0 (1 standard drink = 0.6 oz pur e alcohol) Sex and Gender Information Value Date Recorded Sex Assigned at Not on file Legal Sex Male 11:08 AM EDT Gender Identity Not on file Sexual Orientation Not on file Last Filed Vital Signs Vital Sign Reading Time Taken Comments Blood Pressure 120/65 03/25/2022 3:00 PM EDT Pulse 80 03/25/2022 3:00 PM EDT Temperature - - Respiratory Rate - - Oxygen Saturation 97% 03/25/2022 3:00 PM EDT Inhaled Oxygen Concentration - - Weight 65 kg (143 lb 3.2 oz) 03/25/2022 3:00 PM EDT Height - - Body Mass Index - - Plan of Treatment Health Maintenance Due Date Last Done Comments Hepatitis B Vaccine (1 of 3 - 19+ 3-dose series) 1996 Influenza Vaccine (#1) 2025 8, 03/22/2017, 04/18/2015, Additional history exists Pneumococcal Vaccine: Peds (0 to 5 Years) and At-Risk Patients (6 to 49 Years) Aged Out 01/26/2017 No longer eligi ble based on patient's age to complete this topic Insurance [place]
[2025-02-05 17:20] VITALS: BP 135/98; PULSE 65; RESP 16; TEMP -17.7; TEMP 0; O2SAT 98
[2025-02-05 17:21] VITALS: BP 135/98; PULSE 65; RESP 16; TEMP -17.7; TEMP 0; O2SAT 98
[2025-02-08 11:34] LABS: Levetiracetam Keppra 56.0 mcg/mL (6.0-46.0)
== END 2025-02-05 17:21 | disposition home or self-care (01) ==
PROVIDERS: Physician Assistant Medical; Emergency Provider Emergency Medicine
DX: F41.9 Anxiety disorder, unspecified (principal); Z79.899 Other long term (current) drug therapy
CPT/HCPCS: 36415; 80053; 80164; 80177; 83735; 85025; 99283

== ENCOUNTER 2025-02-28 08:58 | Outpatient (AMB) | payer MEDICARE, MEDICAID, SELFPAY ==
--- OUTSIDE RECORDS SUMMARY | 2025-02-28 09:27 | XMS_ITS | Encounter Summary ---
Author Organization [facility] Address [address] [place] [address] Phone Care Team Providers Care Shipping Hand Name Role Phone Pcp, Unknown Primary Care Provider Unavailabl e Encounter Details Date Type Department Care Team (Late st Contact Info) Description 09/12/2021 Procedure Pass [facility], Ct Scan - [address] [address] Social History Tobacco Use Types Packs/Day Years Used Date Smoking Tobacco: Never Smokeless Tobacco: Never Alcohol Use Standard Drinks/Week Comments Not Currently 0 (1 standard drink = 0.6 oz pur e alcohol) Sex and Gender Information Value Date Recorded Sex Assigned at Not on file Legal Sex Male 9:26 PM EDT Gender Identity Not on file Sexual Orientation Not on file documented as of this encounter Plan of Treatment Not on file documented as of this encounter Visit Diagnoses Not on filedocumented in this encounter Care Teams Shipping Hand Relationship Specialty Start Date End Date Pcp, Unknown PCP - General 09/12/21 documented as of this encounter Additional Source Comments The information contained in this document represents components of the legal health record. It is not the complete legal health record.[facility]
--- OUTSIDE RECORDS SUMMARY | 2025-02-28 09:27 | XMS_ITS | Clinical Summary ---
Author Organization [facility] Address [address] [place] [address] Phone Care Team Providers Care Automation Driver Name Role Phone Pcp, Unknown Primary Care Provider Unavailabl e Allergies No known active allergies Medications benzocaine-menthoL (CEPACOL SORE THROAT) 15-2.6 mg Lozg Use as directed 1 lozenge in the mouth or throat 3 (three) times a day as needed. Active loperamide (IMODIUM) 2 mg capsule Take 2 mg by mouth 4 (four) times a day as needed for diarrhea. Active docusate sodium (COLACE) 100 MG capsule Take 100 mg by mouth 2 (two) times a day. Active cloNIDine HCL (CATAPRES) 0.1 MG tablet Take 0.1 mg by mouth daily as needed (tantrums/swe aring/aggress ion/agitation ). Active LORazepam (ATIVAN) 2 MG tablet Take 2 mg by mouth every 6 (six) hours as needed for anxiety. Take 1 tablet by mouth after seizure may repeat up to a total of 3 doses in 12 hours. N.T.E 6 mg in 12 hours Active omega 6-hto-wxz-fish oil 1,000 mg (120 mg-180 mg) Cap Take 1 capsule by mouth daily. Active cholecalciferol (VITAMIN D3) 50,000 unit tablet Take 200 mcg by mouth daily. Active divalproex (DEPAKOTE) [address] tablet Take 1,000 mg by mouth 2 (two) times a day. Active risperiDONE (RISPERDAL) 0.5 MG tablet Take 0.5 mg by mouth 2 (two) times a day. Active clonazePAM (KLONOPIN) 0.5 MG disintegrating tablet Take 0.5 mg by mouth 2 (two) times a day as needed for anxiety. Take 1 tablet by mouth at 4 pm and 8 pm for anxiety Active clonazePAM (KLONOPIN) 1 MG tablet Take 1 mg by mouth daily. Take 2 tablets by mouth every morning. Active acetaminophen (TYLENOL) 325 mg tablet Take 650 mg by mouth every 6 (six) hours as needed for mild pain. Active cetirizine (ZYRTEC) 10 MG tablet Take 10 mg by mouth daily as needed for allergies (post nasal drip). Active multivitamins capsule Take 1 capsule by mouth daily. Active calcium carbonate 500 mg (200 mg elemental) chewable tablet Take 2 tablets by mouth every morning. Active food supplemt, lactose-reduced (,ENSURE PLUS,) 0.05-1.5 gram-kcal/mL Liqd Take 1 Can by mouth 3 (three) times a day. Active carBAMazepine (TEGRETOL) 200 mg tablet Take 2 tablets (400 mg total) by mouth 2 (two) times a day. In addition to 100mg capsule for total 500mg BID 2 Active urea (URE-NA) 15 gram PwPk packet Take 15 g by mouth 2 (two) times a day. 60 packet 5 2 Active levETIRAcetam (KEPPRA) 1000 MG tablet Take 1 tablet (1,000 mg total) by mouth 2 (two) times a day. 60 tablet 5 2 Active carBAMazepine (CARBATROL) 100 mg 12 hr capsule Take 1 capsule (100 mg total) by mouth 2 (two) times a day. Take 1 capsule by mouth BID in addition to 400 mg for total 500mg BID 60 capsule 2 2 Active Active Problems Problem Noted Date Diagnosed Date Cerebral palsy 09/18/2021 Hypo-osmolar hyponatremia 09/14/2021 Assessment & Plan (09/17/2021 1:12 PM EDT): Chronic issue with previous sodium levels 126-133. [...] of hyponatremia and recent seizures Seizure 09/12/2021 Assessment & Plan (09/17/2021 1:11 PM EDT): He has a history of epileptic and [...] there has been staffing turnover in the assisted and unclear if this could be impacting his medications. --Have called out to [facility] neurology to discussed antiepileptic therapy light of the fact that he is doing well on Keppra and that his other antiepileptics could be contributing to SIADH and hyponatremia. --For now, continue carbamazepine, valproic acid and Keppra as scheduled Immunizations Immunization Administration Dates Next Due Influenza Quadrivalent Prese rvative Free IM 09/19/2021(Deferred: Contraindication) Social History Tobacco Use Types Packs/Day Years Used Date Smoking Tobacco: Never Smokeless Tobacco: Never Alcohol Use Standard Drinks/Week Comments Not Currently 0 (1 standard drink = 0.6 oz pur e alcohol) Education Answer Date Recorded Are you interested in more education? Not on nahun e 10/30/2022 Are you concerned about learning? Not on file 10/30/2022 No 10/30/2022 No 10/30/2022 Digital Access Answer Date Recorded No 11/30/2022 No 11/30/2022 No 11/30/2022 Reliable internet access at home? Not on file 11/30/2022 Device with a working camera? Not on file Sex and Gender Information Value Date Recorded Sex Assigned at Not on file Legal Sex Male 9:26 PM EDT Gender Identity Not on file Sexual Orientation Not on file Last Filed Vital Signs Vital Sign Reading Time Taken Comments Blood Pressure 120/77 09/19/2021 9:30 AM EDT Pulse 91 09/19/2021 9:30 AM EDT Temperature 36.2 C (97.2 F) 09/19/2021 9:30 AM EDT Respiratory Rate 18 09/19/2021 9:30 AM EDT Oxygen Saturation 99% 09/19/2021 9:30 AM EDT Inhaled Oxygen Concentration - - Weight 57.6 kg (127 lb) 09/18/2021 6:35 AM EDT Height 157.5 cm (5' 2 ) 09/12/2021 10:38 PM EST Body Mass Index 23.23 09/12/2021 10:38 PM EST Plan of Treatment Health Maintenance Due Date Last Done Comments Adult Td,Tdap Booster 1977 LIPID PANEL 1977 DEPRESSION SCREENING 1989 HEPATITIS C SCREENING 1995 HIV ONE-TIME SCREENING (18-6 5 YEARS) 1995 COLOGUARD 2022 COLONOSCOPY 2022 COLORECTAL CANCER SCREENING 2022 FIT TEST 2022 FOBT 2022 SIGMOIDOSCOPY 2022 VIRTUAL COLONOSCOPY 2022 CARBAMAZEPINE (TEGRETOL) LEVEL 09/14/2022 0 09/14/2021, 09/12/2021 VALPROIC ACID (DEPAKENE) LEVEL 09/14/2022 0 09/14/2021, 09/12/2021 COVID-19 VACCINE ( - 2023-2 5 season) 2024 SMOKING STATUS SCREENING (On ce After 26 Yrs) Completed 09/12/2021 HEPATITIS A VACCINES Aged Out No long er eligible based on patient's age to complete this topic HIB VACCINES Aged Out No longer eligi ble based on patient's age to complete this topic MENINGOCOCCAL VACCINES (ACWY) Aged Out No longer eligible based on patient's age to complete this topic MENINGOCOCCAL VACCINES (B) Aged Out N o longer eligible based on patient's age to complete this topic PNEUMOCOCCAL VACCINES (0-49 years) Aged Out No longer eligible b ased on patient's age to complete this topic Medical Devices Not on file Procedures Procedure Name Priority Date/Time Associated Diagnosis Comments VALPROIC ACID Timed 09/14/2021 6:09 AM EDT CARBAMAZEPINE (TEGRETOL) LEVEL Timed 09/14/2021 6:09 AM EDT from Last 3 Months or Most Recently Relevant to Health Maintenance Results * Valproic acid (09/14/2021 6:09 AM EDT) VALPROIC ACID 57.7 50.0 - 100.0 ug/mL [facility] Blood 09/14/2021 6:09 AM EDT 09/14/2021 7:30 AM EDT Rita Oliva MD LAB BLOOD ORDERABLES Final Result Performing Organization Address City/[facility]/ZIP Co de Phone Number [address] [address] * Carbamazepine (Tegretol) level (09/14/2021 6:09 AM EDT) CARBAMAZEPINE 10.6 8.0 - 12.0 ug/mL [facility] Blood 09/14/2021 6:09 AM EDT 09/14/2021 7:30 AM EDT Rita Oliva MD LAB BLOOD ORDERABLES Final Result Performing Organization Address City/[facility]/ZIP Co de Phone Number [address] [address] from Last 3 Months or Most Recently Relevant to Health Maintenance Insurance MEDICARE PART A & B [facility] MEDICARE PART A & [place] [facility] PART [facility] [place] B [facility] MED[facility] PART [facility] Advance Directives For more information, please contact: [phone] (9AM - 5PM [facility], Wednesday-Wednesday) * Full Code (Latest Code Status on File) Date Activated Date Inactivated Comments 09/12/2021 10:30 PM Question Answer Comments Code Status Confirmed With: Family Code Status Communicated To: Inpatient Attending Care Teams Automation Driver Relationship Specialty Start Date End Date Pcp, Unknown PCP - General 09/12/21 Additional Source Comments The information contained in this document represents components of the legal health record. It is not the complete legal health record.[facility]
--- OUTSIDE RECORDS SUMMARY | 2025-02-28 09:27 | XMS_ITS | Clinical Summary ---
Author Organization [facility] Address [address] [place] [address] Phone Care Team Providers Care Canoe Inspector Name Role Phone Morgan Rutherford MD Primary Care Provider +1- [phone] Allergies No known active allergies Social History [...] Insurance MEDICARE [place] - [place] Care Teams Canoe Inspector Relationship Specialty Start Date End Date Morgan Rutherford MD [address] [place] [address] PCP - General Family Medicine 07/10/24
--- OUTSIDE RECORDS SUMMARY | 2025-02-28 09:27 | XMS_ITS | Clinical Summary ---
Author Organization [facility] Facility Address [address] [place] [address] Care Team Providers Care Mine Shifter Name Role Phone Unavailable Primary Care Provider [...] 02/27/2022 Active cholecalciferol (VITAMIN D-3) 1.25 MG (36900 UT) tablet Take 200 mcg by mouth [...] seizures Seizure 09/12/2021 [place]03/25/2022): [place] [facility] [place] Assessment & Plan: He has a [...] impacting his medications. --Have called out to [facility] neurology to discussed antiepileptic therapy light [...]
--- NOTE | 2025-02-28 09:48 | MHC.OFFVIS ---
Intake Visit Reasons: fu Allergies No Known Allergies (No Known Allergies*) Allergy (Verified 02/05/25 14:01) Medication List - Last Reconciled 02/28/25 by Eric Holland MD acetaminophen (Tylenol) 650 mg PO Q6H PRN calcium carbonate 1,000 mg PO DAILY cenobamate (Xcopri) 100 mg PO BEDTIME cetirizine (Zyrtec) 10 mg PO DAILY PRN cholecalciferol (vitamin D3) (Vitamin D3) 100 mcg PO DAILY clonazepam 0.5 mg PO BID@1600,2000 clonazepam 1 mg PO DAILY clonidine HCl 0.1 mg PO DAILY PRN dextromethorphan-guaifenesin 10-100 mg/5 mL (Karena-Tussin DM) 10 mL PO Q4H PRN diclofenac sodium 1% 1 ea topical Q6H PRN divalproex 1,000 mg (4 x 250 mg) PO QAM divalproex 1,250 mg (5 x 250 mg) PO QPM docusate sodium (Colace) 100 mg PO BID levetiracetam 2,000 mg (2 x 1,000 mg) PO BID 30 days loperamide (Imodium A-D) 2 mg PO Q4H PRN multivitamin 1 tab PO DAILY omega 7-wuk-fnv-fish oil 1,000 (120-180) mg (Fish Oil) 1 cap PO DAILY risperidone 0.5 mg PO BID HPI Comments Details: 49 years old man with chronic intractable epilepsy (seizures causing staring, stiffness, unresponsiveness, shaking, post ictal confusion) from 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 He is presenting with dysphagia. Seizures are controlled, first time in life, with present regimen. He reports significant difficulty swallowing large medication tablets, specifically in the morning. There is an indication that administration adjustments such as crushing the medication may be necessary. The patient had a high frequency of seizures previously, nearly every other day, but reports no recent seizures, attributing this improvement to the current medication regimen of Depakote, Keppra, and Xcopri. He acknowledges occasionally simulating seizures. Current medications seem effective in controlling seizure frequency, with no convulsive episodes noted recently. [facility] Medical History (Updated 02/28/25 @ 10:05 by Eric Holland MD) Intractable epilepsy Recurrent seizures Intellectual disability Intractable seizure disorder Epileptic seizure Hyponatremia History of SIADH Seizure disorder Anxiety disorder, unspecified Surgical History No pertinent past surgical history Family History Other No family history of coronary artery disease Social History Household Members: Other Household Members Other:: [facility] Housing: Other Housing Other:: [facility] Do you presently have visiting nurse or other home services: Yes (25/01 staff at [facility]) Alcohol intake: never Patient Tobacco Use Status: Never used Tobacco e-Cigarette/Vaping Use: Never Used Second Hand Smoke Exposure: No Advance Directives Date on File: 02/06/22 service: No Current occupational status: disabled Review of Systems Const Details: - Neurological: Reports seizures previously occurring frequently; denies recent seizures. - Gastrointestinal: Reports difficulty swallowing large pills in the morning. Assessment & Plan Assessment & Plan (1) Intractable epilepsy: Comment: CT brain WO at [facility] [place] in Jun 2022: diff cortical atrophy, more so on left side CT brain WO at [facility] [place] in Feb 2022: diff cortical atrophy. Code(s): G40.919 - Epilepsy, unspecified, intractable, without status epilepticus Category: Medical Qualifiers: Epilepsy type: unspecified Status epilepticus: without status epilepticus Qualified Code(s): G40.919 - Epilepsy, unspecified, intractable, without status epilepticus Plan: During the visit, I discussed with the patient the importance of maintaining the current medication regimen given the significant improvement in seizure control. We reviewed the possibility of crushing pills and mixing them with applesauce to manage the dysphagia, ensuring compliance and minimizing the risk of choking. The patient consented to this alteration after understanding the benefits of improved ease in medication administration. Given the stable seizure profile, a follow-up was recommended in three months to reassess medication levels and overall progress. 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
== END 2025-02-28 10:03 | disposition home or self-care (01) ==
LOC: HO.HSM 08:59
PROVIDERS: Visit Provider Psychiatry & Neurology Neurology
DX: G40.919 Epilepsy, unspecified, intractable, without status epilepticus (principal); F07.9 Unspecified personality and behavioral disorder due to known physiological condition; G93.49 Other encephalopathy
CPT/HCPCS: 99215

== ENCOUNTER → 2025-02-28 08:58 | Outpatient (BNVA) | payer MEDICARE, MEDICAID, SELFPAY | PROVIDERS: Visit Provider Psychiatry & Neurology Neurology | DX: G93.49 Other encephalopathy (principal); G40.919 Epilepsy, unspecified, intractable, without status epilepticus; F07.9 Unspecified personality and behavioral disorder due to known physiological condition; Z79.899 Other long term (current) drug therapy | CPT/HCPCS: 99212 ==

== ENCOUNTER 2025-03-30 10:15 | Outpatient (REF) | payer MEDICARE, MEDICAID, SELFPAY ==
--- NOTE | ~2025-03-30 | XR_ITS ---
EXAMINATION: XR FOOT, LEFT CLINICAL INFORMATION: M79.672 - Pain in left foot COMPARISON: None available. TECHNIQUE: AP, lateral, and oblique views of the left foot. FINDINGS: No acute cortical disruption or malalignment. No lytic or blastic lesions. No osteolysis. No subcutaneous emphysema. No metallic or radiopaque foreign body. No gross soft tissue calcifications. XR/XR foot LT min 3V IMPRESSION: No acute fracture or dislocation. Negative x-ray. Electronically signed by: Curtis Traore MD 03/30/2025 11:09 AM EDT
== END 2025-03-30 10:16 | disposition home or self-care (01) ==
LOC: HO.HMGCX 10:15
PROVIDERS: PCP Family Medicine; Visit Provider Physician Assistant
DX: M79.672 Pain in left foot (principal)
CPT/HCPCS: 73630; 99202

== ENCOUNTER 2025-03-30 10:15 | Outpatient (AMB) | payer MEDICARE, MEDICAID, SELFPAY ==
[2025-03-30 10:18] VITALS: BP 102/74; PULSE 75; TEMP 36.8; O2SAT 98; BMI 25.9
--- NOTE | 2025-03-30 10:18 | AM.OFFWIN_ITS ---
Intake Vital Signs 3 03/30/25 10:18 Height 5 ft 3 in Weight 146 lb BMI 25.9 BP 102/74 Blood Pressure Location Lt brachial Position Sitting Pulse 75 Pulse Source Pulse Oximeter Temp 98.3 F Temp Source Oral Pulse Oximetry (%) 98 Oxygen Delivery Method Room Air Intake Visit Reasons: EP Bump on bottom right foot/ pain walking Patient Tobacco Use Status: Never used Tobacco Allergies No Known Allergies (No Known Allergies*) Allergy (Verified 03/30/25 10:34) Do you need a note to return to daycare/school/sports/work: No HPI HPI Comments 2 History of Present Illness0 Details History of Present Illness - The patient is a 50-year-old male pres enting with his worker with pain on the bottom of his left foot. - Reports a lesion on the bottom of the left foot that has been growing over time, causing pain during ambulation. - Does not recall any specific trauma or incident that could have caused the lesion, doesn't think he stepped on anything. - Works in a job that requires prolonged standing, which exacerbates the pain. - Is asking for a work note. He also has paperwork from his [facility] for me to fill out. Physical Exam General: Cooperative, healthy appearing, comfortable, no acute distress and well developed Orientation: Patient oriented x3 Limitations: No limitations Head: Normal to inspection Ears: Hearing grossly normal bilaterally Nose: Normal External nose present Face and sinus: Normal facial exam Eyes: Appearance normal, both eyes and all related structures Neck: Normal visual inspection and Yes full ROM Respiratory: Normal respiratory effort and able to speak in complete sentences. Skin: No rashes or lesions noted Neuro: Patient oriented x3 Extremities: 1cm oblong/irregularly shaped area on plantar aspect of left foot, TTP, see below. Review of Systems - Musculoskeletal: Reports left foot calin n, denies any known trauma or injury. All systems reviewed and are unremarkable except as noted in HPI [facility] Medical History (Updated 03/30/25 @ 10:29 by Chuyita Aleman PA-C) Intractable epilepsy Recurrent seizures Intellectual disability Intractable seizure disorder Epileptic seizure Hyponatremia History of SIADH Seizure disorder Anxiety disorder, unspecified Surgical History No pertinent past surgical history Family History Other No family history of coronary artery disease Social History Household Members: Other Household Members Other:: [facility] Housing: Other Housing Other:: [facility] Do you presently have visiting nurse or other home services: Yes (25/01 staff at [facility]) Alcohol intake: never Patient Tobacco Use Status: Never used Tobacco e-Cigarette/Vaping Use: Never Used Second Hand Smoke Exposure: No Advance Directives Date on File: 02/06/22 service: No Current occupational status: disabled Physical Exam Vital Signs: Last Vital Signs Temp 98.3 F 03/30/25 10:18 Pulse 75 03/30/25 10:18 BP 102/74 03/30/25 10:18 Pulse Ox 98 03/30/25 10:18 Oxygen Delivery Method Room Air 03/30/25 10:18 BMI result Body Mass Index 25.9 Assessment & Plan Assessment & Plan (1) Left foot pain: Code(s): M79.672 - Pain in left foot Plan: Plan Patient was informed and verbally consented to the use of an ambient scribe for clinic note documentation during this visit. Most likely Verruca Plantaris (Plantar Wart) though with TTP, will get XR to rule out FB under callous, would expect pain with ambulation but not TTP. - Referral to podiatry for further evaluation and management of the plantar wart. - X-ray of the left foot to rule out any foreign body or underlying pathology. - Work note provided for five days off to allow rest and reduce exacerbation of symptoms due to prolonged standing. - Filled out [facility] paperwork. Orders: Orders 2 XR foot LT min 3V Today M79.672 - Pain in left foot Referrals 2 Podiatry Referral M79.672 - Pain in left foot Coding Level of Care Code New Pt Level 4 (04381) Diagnoses Left foot pain M79.672
--- OUTSIDE RECORDS SUMMARY | 2025-03-30 11:29 | XMS_ITS | Encounter Summary ---
Author Organization [facility] Address [address] [place] [address] Phone Care Team Providers Care Accounting Professional Name Role Phone Pcp, Unknown Primary Care Provider Unavailabl e Encounter Details Date Type Department Care Team (Late st Contact Info) Description 09/12/2021 Procedure Pass [facility], Ct Scan - [address] [address] Social History Tobacco Use Types Packs/Day Years [...] on filedocumented in this encounter Care Teams Accounting Professional Relationship Specialty Start Date End Date Pcp, Unknown PCP - General 09/12/21 documented as of this encounter Additional Source Comments The information contained in this document represents components of the legal health record. It is not the complete legal health record.[facility]
--- OUTSIDE RECORDS SUMMARY | 2025-03-30 11:29 | XMS_ITS | Clinical Summary ---
Author Organization [facility] Facility Address [address] [place] [address] Care Team Providers Care Medication Manager Name Role Phone Unavailable Primary Care Provider [...] 02/27/2022 Active cholecalciferol (VITAMIN D-3) 1.25 MG (93283 UT) tablet Take 200 mcg by mouth [...] seizures Seizure 09/12/2021 Overview (03/25/2022): neurology at [facility] [place] Last Assessment & Plan: He has a [...] there has been staffing turnover in the senior care and unclear if this could be impacting his medications. --Have called out to [facility] neurology to discussed antiepileptic [...]
--- OUTSIDE RECORDS SUMMARY | 2025-03-30 11:29 | XMS_ITS | Clinical Summary ---
Author Organization [facility] Address [address] [place] [address] Phone Care Team Providers Care Installation Tech Name Role Phone Pcp, Unknown Primary Care [...] 6 mg in 12 hours Active omega 7-anq-lsg-fish oil 1,000 mg (120 mg-180 mg) Cap [...] impacting his medications. --Have called out to [facility] neurology to discussed antiepileptic therapy light [...] ACID (DEPAKENE) LEVEL 09/14/2022 0 09/14/2021, 09/12/2021 INFLUENZA VACCINE (#1) 2025 COVID-19 VACCINE ( - 2023-2 5 season) 2025 SMOKING STATUS SCREENING (On ce After 26 [...] VALPROIC ACID 57.7 50.0 - 100.0 ug/mL [facility] Blood 09/14/2021 6:09 AM EDT 09/14/2021 7:30 AM EDT Rita Oliva MD LAB BLOOD ORDERABLES Final Result [address] [address] * Carbamazepine (Tegretol) level (09/14/2021 6:09 AM EDT) CARBAMAZEPINE 10.6 8.0 - 12.0 ug/mL [facility] Blood 09/14/2021 6:09 AM EDT 09/14/2021 7:30 AM EDT Rita Oliva MD LAB BLOOD ORDERABLES Final Result Performing Organization Address City/[facility]/ZIP Co de Phone Number [address] [address] from Last 3 Months or Most Recently Relevant to Health Maintenance Insurance MEDICARE PART A & B Member Subscriber Plan / Payer (Ef fective 2003-Present) Name:Chase Anaya Member ID:[id number] Relation to Subscriber:Self Name:Chase Anaya Subscriber ID:[id number] Payer ID:[id number] Group ID:Not on file Type:Medicare Address: [facility] [employer] [facility] [address] [place] [address] [place] [address] [facility] MEDICARE PART A & B [facility] & B [place] MED[place] PART A & B [facility] & [place] MEDICARE PART A & B [facility] & [facility] A & B [facility] Member Subscriber Plan / Payer ( fective 2017-Present) Name:Chase Anaya Relation to Subscriber:Self Name:Chase Anaya Payer ID:[id number] Group ID:Not on file Type:Medicaid Address: [facility] [address] [place] [id number] MEDICARE PART A & B [facility] Advance Directives For more information, please contact: [phone] (9AM - 5PM [facility], Wednesday-Wednesday) * Full Code (Latest Code Status on File) Date Activated Date Inactivated Comments 09/12/2021 10:30 PM Question Answer Comments Code Status Confirmed With: Family Code Status Communicated To: Inpatient Attending Care Teams Installation Tech Relationship Specialty Start Date End Date Pcp, Unknown PCP - General 09/12/21 Additional Source Comments The information contained in this document represents components of the legal health record. It is not the complete legal health record.[facility]
--- OUTSIDE RECORDS SUMMARY | 2025-03-30 11:30 | XMS_ITS | Clinical Summary ---
Author Organization [address] [facility] Address [address] [place] [address] Phone Care Team Providers Care Boat Assembler Name Role Phone Morgan Rutherford MD Primary Care Provider +1- [phone] Allergies No known active allergies Social History [...] of 3 - 19+ 3-dose series) 1996 Depression Screening 07/05/2024 Cholesterol Screening (Lipid Panel) 07/10/2024 Colorectal Cancer Screening: Colonoscopy 07/10/2024 HIV Screening 07/10/2024 Hepatitis C Screening 07/10/2024 Medicare Annual Wellness Visit 07/10/2024 Social Influencers of Health Screening 07/10/2024 COVID-19 Vaccine (2024- season) 2025 06/24/2021, 08/19/2020, 07/29/2020 Influenza Vaccine (#1) 2025 , 06/24/2018, 03/22/2017, Additional history exists DTaP,Tdap,and Td Vaccines (2 - Td or Tdap) 03/13/2029 03/13/2019 RSV Immunization Adult Patients (1 - 1-dose 75+ series) 2052 Pneumococcal Vaccine: Pediatrics (0 to 5 Years) [...] Insurance MEDICARE MEDICAID - [place] Care Teams Boat Assembler Relationship Specialty Start Date End Date Morgan Rutherford MD [facility] [address] [place] [address] PCP - General Family Medicine 07/10/24
== END 2025-03-30 10:37 | disposition home or self-care (01) ==
PROVIDERS: Visit Provider Physician Assistant
DX: M79.672 Pain in left foot (principal)

== ENCOUNTER → 2025-03-30 10:54 | Outpatient (BNV) | payer MEDICARE, MEDICAID, SELFPAY | PROVIDERS: PCP Family Medicine; Visit Provider Radiology Diagnostic Radiology | DX: M79.672 Pain in left foot (principal) | CPT/HCPCS: 73630 ==

== ENCOUNTER 2025-04-21 19:58 | Emergency (ER) | payer MEDICARE, MEDICAID, SELFPAY ==
--- NOTE | 2025-04-21 | ECG_ITS ---
Test Reason : seizures Blood Pressure : */* mmHG Vent. Rate : 88 BPM Atrial Rate : 88 BPM P-R Int : 118 ms QRS Dur : 82 ms QT Int : 326 ms P-R-T Axes : 30 20 42 degrees QTcB Int : 394 ms Normal sinus rhythm Normal ECG When compared with ECG of 16-Jul-2024 20:25, No significant change was found Referred By: Generic ED Physician Electronically Signed By: Catrachito Devi
--- NOTE | ~2025-04-21 | CT_ITS ---
CLINICAL HISTORY: frequent breatkthrough seizures CT head without contrast Comparison: CT/REG/SR - CT HEAD WITHOUT IV CONTRAST - 07/04/23 17:03 EST Findings: No intra-axial mass, midline shift, hydrocephalus, or acute hemorrhage. No significant atrophy-like change or white matter disease. No fluid in the paranasal sinuses or mastoids. The orbits are unremarkable. No skull fracture. IMPRESSION: 1. Bilateral maxillary sinus mucous retention cysts or polyps. 2. No acute intracranial findings. This document has been electronically signed by: Agus Johnson MD on 04/22/2025 04:06:43
[2025-04-21 20:01] VITALS: BP 145/106; PULSE 93; O2SAT 98
[2025-04-21 20:35] VITALS: BP 165/110; PULSE 91; RESP 16; TEMP 36.9; O2SAT 99; BMI 24.9
[2025-04-21 20:40] VITALS: BP 165/110; PULSE 91; RESP 16; TEMP 36.9; O2SAT 99
[2025-04-21 20:59] LABS: Hematocrit 39.5 % (42.0-52.0); Hemoglobin 13.5 g/dl (14.0-18.0); Imm Gran Abs Auto 0.03 X10*3/uL (0.00-0.03); Imm Gran Pct Auto 0.6 % (0.0-0.4); Lymphocytes Absolute Auto 1.1 X10*3/uL (1.2-4.9); MANUAL DIFF FLAG NO; Mean Corpuscular HGB Conc 34.2 g/dl (31.0-36.0); Mean Corpuscular Hemoglobin 32.5 pg (27.0-33.0); Mean Corpuscular Volume 95.2 fL (80.0-98.0); NRBC Abs Auto 0.000 X10*3/uL (0.0-0.012); NRBC Pct Auto 0.0 /100WBC (0.0-0.2); Platelet Count 169 X10*3/uL (160-400); Red Blood Count 4.15 X10*6/uL (4.60-5.80); White Blood Count 5.4 X10*3/uL (4.8-10.8)
--- NOTE | 2025-04-21 21:09 | ED.SEIZURE ---
HPI - Seizure General Chief Complaint: Seizure Stated Complaint: MULTIPLE SZ,FROM [facility] PER EMS Time Seen by Provider: 04/21/25 21:02 Source: patient, EMS, RN notes reviewed and old records reviewed Mode of arrival: EMS Limitations: no limitations History of Present Illness ED Provider: Dr. Loree Collins HPI Narrative: 50-year-old male with history of epilepsy, chronic static encephalopathy, intellectual disability presenting with reported seizure activity that has been ongoing all day today. Reportedly had 5 seizures that were brief and intermittent. Witnessed hand shaking activity that progressed to full body shaking that lasted for about a minute each and resolved without intervention. Reportedly was not postictal after the events. Patient arrives in the emergency department fully alert and oriented. Has been taking all of his seizure medications as prescribed including Depakote, Keppra and Xcopri. Last doses were taken this morning. He missed his 8:00 p.m. doses. Patient has no complaints other than his chronic lower extremity arthritic pain. He takes Motrin for this at the custodial. Denies reported fevers, cough or cold-type symptoms. No chest pain or difficulty breathing. Denies headache or vision changes. No focal limb weakness or numbness. Reports his last seizure was several weeks ago. Sees a neurologist regularly. Denies illicit substance use or stimulant use. Seizure History: Yes Related Data Home Medications ?Medication ?Instructions ?Recorded ?Confirmed cetirizine 10 mg tablet (Zyrtec) 10 mg PO DAILY PRN allergies 12/31/21 02/28/25 cholecalciferol (vitamin D3) 50 100 mcg PO DAILY 12/31/21 02/28/25 mcg (2,000 unit) tablet (Vitamin D3) clonazepam 0.5 mg tablet 0.5 mg PO BID@1600,2000 12/31/21 02/28/25 diclofenac sodium 1 % topical gel 1 ea topical Q6H PRN Pain (Scale 12/31/21 02/28/25 Score 4-6) docusate sodium 100 mg capsule 100 mg PO BID 12/31/21 02/28/25 (Colace) multivitamin 1 tab PO DAILY 12/31/21 02/28/25 omega 1-dwx-yms-fish oil 1,000 mg 1 cap PO DAILY 12/31/21 02/28/25 (120 mg-180 mg) capsule (Fish Oil) acetaminophen 325 mg tablet 650 mg PO Q6H PRN Pain or fever 04/08/22 02/28/25 (Tylenol) loperamide 2 mg tablet (Imodium 2 mg PO Q4H PRN Loose Stool 04/08/22 02/28/25 A-D) clonidine HCl 0.1 mg tablet 0.1 mg PO DAILY PRN Agitation 06/12/22 02/28/25 calcium carbonate 1,000 mg PO DAILY 07/04/23 02/28/25 dextromethorphan-guaifenesin 10 10 ml PO Q4H PRN Cough 07/04/23 02/28/25 mg-100 mg/5 mL oral liquid (Karena-Tussin DM) clonazepam 1 mg tablet 1 mg PO DAILY 09/11/23 02/28/25 risperidone 0.5 mg tablet 1 mg PO BID 03/30/25 Previous Rx's ?Medication ?Instructions ?Recorded cenobamate 100 mg tablet (Xcopri) 100 mg PO BEDTIME #90 tabs 03/22/25 divalproex 250 mg tablet,delayed 1,250 mg (5 x 250 mg) PO QAM #450 04/11/25 release tabs divalproex 250 mg tablet,delayed 1,000 mg (4 x 250 mg) PO QPM #360 04/12/25 release tabs divalproex 250 mg tablet,delayed 250 mg PO .COMPLEX 90 days #810 04/17/25 release tabs levetiracetam 1,000 mg tablet 2,000 mg (2 x 1,000 mg) PO BID 30 04/18/25 days #120 tabs Allergies Allergy/AdvReac Type Severity Reaction Status Date / Time No Known Allergies (No Known Allergy Verified 04/21/25 20:37 Allergies*) Review of Systems Review of Systems: As per HPI, full review of systems performed and negative but for the above mentioned pertinent positives and negatives. [facility] Past Medical History Medical History Intractable epilepsy Recurrent seizures Intellectual disability Intractable seizure disorder Epileptic seizure Hyponatremia History of SIADH Seizure disorder Anxiety disorder, unspecified Surgical History No pertinent past surgical history Family History Family History Other No family history of coronary artery disease Social History Social History Household Members: Other Household Members Other:: custodial Housing: Other Housing Other:: custodial Do you presently have visiting nurse or other home services: Yes (/ staff at custodial) Alcohol intake: never Patient Tobacco Use Status: Never used Tobacco Smoked in Last 30 Days: No e-Cigarette/Vaping Use: Never Used Second Hand Smoke Exposure: No Use of substances other than those prescribed or required for medical reasons: No Advance Directives: Yes Advance Directives on File: Yes Advance Directives Date on File: 02/06/22 service: No Current occupational status: disabled Physical Exam Exam: Exam: GENERAL: Chronically ill-appearing, conversant, no acute distress. SKIN: Normal skin color for ethnicity, warm, dry, no rashes noted. HEENT: Normocephalic, atraumatic, no stridor, posterior oropharynx nonerythematous, dentition intact, EOMI. NECK: Soft, supple, full ROM, midline structures nontender, no step-offs, no deformities, no lymphadenopathy. CHEST: Heart regular rate and rhythm, no murmurs, symmetric chest rise and fall. PULMONARY: Clear to auscultation bilaterally, no labored breathing, no wheezes/rhales/rhonchi. ABDOMINAL: Soft, nondistended, nontender, positive bowel sounds in all quadrants. : Deferred. MUSCULOSKELETAL: Normal tone, full range of motion, no deformities, no peripheral edema. NEURO: Alert and oriented x3, CN II through XII intact, equal strength and sensation bilateral upper and lower extremities, no focal neurologic deficits. PSYCHIATRIC: Normal affect, fluid speech, good eye contact and appropriate demeanor. Vital Signs: Vital Signs: Last Vital Signs Temp 98.5 F 04/21/25 20:40 Pulse 79 04/21/25 22:27 Resp 18 04/21/25 22:27 BP 141/99 H 04/21/25 22:27 Pulse Ox 99 04/21/25 20:40 O2 Del Method Room Air 04/21/25 20:40 BMI result Body Mass Index 24.9 Medications Administered Discontinued Medications Generic Name Dose Route Start Last Admin Trade Name Freq PRN Reason Stop Dose Admin Clonazepam 0.5 mg 04/21/25 22:03 04/21/25 22:33 Clonazepam 0.5 Mg Tablet PO 04/21/25 22:04 0.5 mg ONCE ONE Administration Divalproex Sodium 1,250 mg 04/21/25 22:03 04/21/25 22:33 Divalproex Sodium 250 Mg Tablet. PO 04/21/25 22:04 1,250 mg ONCE ONE Administration Levetiracetam 2,000 mg/ Sodium 120 mls @ 480 mls/hr 04/21/25 22:03 04/21/25 22:47 Chloride IV 04/21/25 22:17 Infused ONCE ONE Infusion Ketorolac Tromethamine 15 mg 04/21/25 22:03 04/21/25 22:29 Ketorolac Tromethamine 15 Mg/Ml Vial IVPUSH 04/21/25 22:04 15 mg ONCE ONE Administration Risperidone 0.5 mg 04/21/25 22:03 04/21/25 22:35 Risperidone 0.5 Mg Tablet PO 04/21/25 22:04 0.5 mg ONCE ONE Administration Medical Decision Making Medical Decision Making [facility] Narrative: Patient presents today with chief complaint of seizure activity. Differential diagnosis includes breakthrough seizure, medication noncompliance, intracranial pathology such as hemorrhage or embolism, infectious process such as meningitis, stimulant use or drug toxicity, hyperthyroidism, electrolyte abnormality, nonepileptic seizure activity (psychogenic seizure activity), among many others. Patient is well-appearing with normal vital signs now that he has been medicated with his evening medications. Initially hypertensive but without headache or other focal neurologic deficits. CT does not show evidence of acute bleed or intracranial process. Blood work is reassuring, no evidence of infectious process, electrolyte abnormality or significant anemia. He has follow up with his neurologist. Feel he is stable to return to the custodial. He was given his home medications including Keppra through the IV. Discharged to the custodial in stable condition. Differential Diagnosis Differential Diagnoses: The differential diagnosis associated with the presentation includes (As above) Admission/Observation Consideration of admission/observation: Escalation of care including admission/observation considered Lab Data [facility] Lab Attestation statement: I reviewed the patient's lab results. 04/21/25 20:52 04/21/25 20:52 Labs: Lab Results 04/21/25 04/21/25 Range/Units 20:52 22:28 WBC 5.4 (4.8-10.8) X10*3/uL RBC 4.15 L (4.60-5.80) X10*6/uL Hgb 13.5 L (14.0-18.0) g/dl Hct 39.5 L (42.0-52.0) % MCV 95.2 (80.0-98.0) fL MCH 32.5 (27.0-33.0) pg MCHC 34.2 (31.0-36.0) g/dl RDW 12.6 (11.0-16.0) % Plt Count 169 (160-400) X10*3/uL MPV 10.6 (9.4-12.4) fL Immature Gran % (Auto) 0.6 H (0.0-0.4) % Neut % (Auto) 68.6 (45-73) % Lymph % (Auto) 20.9 (20-40) % Edmunds % (Auto) 9.3 (2-11) % Eos % (Auto) 0.2 (0-4) % Baso % (Auto) 0.4 (0-2) % Lymph # (Auto) 1.1 L (1.2-4.9) X10*3/uL Edmunds # (Auto) 0.5 (0.1-1.2) X10*3/uL Eos # (Auto) 0.0 (0.0-0.4) X10*3/uL Baso # (Auto) 0.0 (0.0-0.2) X10*3/uL Abs Immat Gran (auto) 0.03 (0.00-0.03) X10*3/uL Absolute Neuts (auto) 3.7 (2.0-8.3) x10*3/uL Absolute Nucleated RBC 0.000 (0.0-0.012) X10*3/uL Nucleated RBC % (auto) 0.0 (0.0-0.2) /100WBC Sodium 140 (135-145) mmol/L Potassium 4.1 (3.3-5.1) mmol/L Chloride 109 H (96-108) mmol/L Carbon Dioxide 21 L (22-29) mmol/L Anion Gap 14 (12-20) BUN 13 (9-16) mg/dL Creatinine 0.66 (0.5-1.4) mg/dL Estim Creat Clear Calc 114.6 Estimated GFR > 60 Random Glucose 107 (60-115) mg/dL Calcium 9.4 (8.4-10.2) mg/dL Magnesium 1.9 (1.6-2.6) mg/dL Total Bilirubin 0.1 (0.0-1.0) mg/dL AST 17 (5-37) U/L ALT 15 (0-40) U/L Alkaline Phosphatase 40 (39-117) U/L Troponin I High Sens < 2.7 (<3.5-35.0) ng/L Total Protein 6.8 (6.5-8.0) g/dL Albumin 4.3 (3.5-5.0) g/dL TSH 1.68 (0.32-4.0) uIU/mL Urine Color Yellow Urine Appearance Clear Urine pH 8.0 (5.0-9.0) Ur Specific Benton 1.010 (1.005-1.025) Urine Protein Negative (Neg-Trace) mg/dL Urine Glucose (UA) Negative (Negative) mg/dL Urine Ketones Negative (Negative) mg/dL Urine Blood Negative (Negative) Urine Nitrite Negative (Negative) Ur Leukocyte Esterase Negative (Negative) Urine Opiates Screen Not Detected (Not Detect) Ur Buprenorphine Scrn Not Detected (Not Detect) ng/mL Ur Oxycodone Screen Not Detected (Not Detect) ng/mL Urine Methadone Screen Not Detected (Not Detect) ng/mL Urine Fentanyl Screen Not Detected (Not Detect) Ur Barbiturates Screen Not Detected (Not Detect) Ur Phencyclidine Scrn Not Detected (Not Detect) Ur Amphetamines Screen Not Detected (Not Detect) U Benzodiazepines Scrn Not Detected (Not Detect) Urine Cocaine Screen Not Detected (Not Detect) U Marijuana (THC) Screen Not Detected (Not Detect) Independent Interpretation I performed an independent interpretation of an: EKG and CT Scan Radiology Impression Discussion of test interpretation with radiology: I have reviewed the radiologist's reading. Independent Historian Clinical information obtained from an independent historian. History obtained from or confirmed by: EMS and Other (drug abuse social worker) External Record Review External record reviewed: Inpatient record, Office record and Outpatient record Chronic Conditions Patient?s care impacted by: Other (Seizure disorder, intellectual disability) Social Determinants Patient?s care significantly limited by Social Determinants of Health including: Other Social Determinant of Health Discharge Plan Discharge Clinical Impression: Breakthrough seizure Patient Disposition: Home, Self-Care Additional Instructions: Continue home medications as prescribed. Follow up with neurology as soon as possible. Return to the emergency department with any new or worsening symptoms including: Continued seizure despite medications, fevers greater than 100?, numbness or weakness on 1 side of the body, difficulty speaking, any new or concerning symptoms. Prescriptions: No Action Xcopri 100 mg tablet 100 mg PO BEDTIME Qty: 90 0RF divalproex 250 mg tablet,delayed release (DR/EC) 1,250 mg PO QAM Qty: 450 1RF divalproex 250 mg tablet,delayed release (DR/EC) 1,000 mg PO QPM Qty: 360 0RF divalproex 250 mg tablet,delayed release (DR/EC) 250 mg PO .COMPLEX 90 Days Qty: 810 0RF Rx Instructions: 250 mg orally 5 in am and 4 at night; levetiracetam 1,000 mg tablet 2,000 mg PO BID 30 Days Qty: 120 5RF multivitamin Tablet 1 tab PO DAILY cetirizine [Zyrtec] 10 mg Tablet 10 mg PO DAILY PRN (Reason: allergies) clonazepam 0.5 mg tablet 0.5 mg PO BID@1600,2000 docusate sodium [Colace] 100 mg Capsule 100 mg PO BID diclofenac sodium 1 % Gel 1 ea TOPICAL Q6H PRN (Reason: Pain (Scale Score 4-6)) cholecalciferol (vitamin D3) [Vitamin D3] 50 mcg (2,000 unit) Tablet 100 mcg PO DAILY omega 4-nwv-qbj-fish oil [Fish Oil] 1,000 mg (120 mg-180 mg) Capsule 1 cap PO DAILY acetaminophen [Tylenol] 325 mg Tablet 650 mg PO Q6H PRN (Reason: Pain or fever) loperamide [Imodium A-D] 2 mg Tablet 2 mg PO Q4H PRN (Reason: Loose Stool) Rx Instructions: administer after each loose stool until symptoms controlled; do not exceed 8 mg per 24 hrs clonidine HCl 0.1 mg Tablet 0.1 mg PO DAILY PRN (Reason: Agitation) dextromethorphan-guaifenesin [Karena-Tussin DM] 10-100 mg/5 mL Liquid 10 ml PO Q4H PRN (Reason: Cough) calcium carbonate 500 mg calcium (1,250 mg) Tablet 1,000 mg PO DAILY clonazepam 1 mg Tablet 1 mg PO DAILY risperidone 0.5 mg tablet 1 mg PO BID Referrals: Eric Holland MD [Physician, Neurology] Clinical Impression: Breakthrough seizure Print Language: Ghanaian
--- OUTSIDE RECORDS SUMMARY | 2025-04-21 21:15 | XMS_ITS | Encounter Summary ---
Author Organization [facility] Address [address] [place] [address] Phone Care Team Providers Care Field Training Manager Name Role Phone Pcp, Unknown Primary Care Provider Unavailabl e Encounter Details Date Type Department Care Team (Late st Contact Info) Description 09/12/2021 Procedure Pass [facility], Ct Scan - [address] [address] Social History Tobacco Use Types Packs/Day Years [...] on filedocumented in this encounter Care Teams Field Training Manager Relationship Specialty Start Date End Date Pcp, Unknown PCP - General 09/12/21 documented as of this encounter Additional Source Comments The information contained in this document represents components of the legal health record. It is not the complete legal health record.[facility]
--- OUTSIDE RECORDS SUMMARY | 2025-04-21 21:15 | XMS_ITS | Clinical Summary ---
Author Organization [facility] Address [address] [place] [address] Phone Care Team Providers Care Supervisor Opening And Picking Name Role Phone Pcp, Unknown Primary Care [...] 6 mg in 12 hours Active omega 9-moq-ymf-fish oil 1,000 mg (120 mg-180 mg) Cap [...] there has been staffing turnover in the custodial and unclear if this could be impacting his medications. --Have called out to [facility] neurology to discussed antiepileptic therapy light of [...] VACCINE (#1) 2025 COVID-19 VACCINE ( - 2024-2 6 season) 2025 SMOKING STATUS SCREENING (On ce [...] VALPROIC ACID 57.7 50.0 - 100.0 ug/mL [facility] Blood 09/14/2021 6:09 AM EDT 09/14/2021 7:30 AM EDT Rita Oliva MD LAB BLOOD ORDERABLES Final Result [address] [address] * Carbamazepine (Tegretol) level (09/14/2021 6:09 AM EDT) CARBAMAZEPINE 10.6 8.0 - 12.0 ug/mL [facility] Blood 09/14/2021 6:09 AM EDT 09/14/2021 7:30 AM EDT Rita Oliva MD LAB BLOOD ORDERABLES Final Result Performing Organization Address City/[facility]/ZIP Co de Phone Number [address] [address] from Last 3 Months or Most Recently Relevant to Health Maintenance Insurance MED[place] PART A & [place] [id number] [facility] MEDIC[facility] PART A & [facility] [place] [facility] PART [facility] [place] [facility] [place] [facility] & B [facility] MEDICARE PART A & B [facility] Advance Directives For more information, please contact: [phone] (9AM - 5PM [facility], Wednesday-Wednesday) * Full Code (Latest Code Status on File) Date Activated Date Inactivated Comments 09/12/2021 10:30 PM Question Answer Comments Code Status Confirmed With: Family Code Status Communicated To: Inpatient Attending Care Teams Supervisor Opening And Picking Relationship Specialty Start Date End Date Pcp, Unknown PCP - General 09/12/21 Additional Source Comments The information contained in this document represents components of the legal health record. It is not the complete legal health record.[facility]
--- OUTSIDE RECORDS SUMMARY | 2025-04-21 21:15 | XMS_ITS | Clinical Summary ---
Author Organization [facility] Facility Address [address] [place] [id number] Care Team Providers Care Orthodontic Lab Technician Name Role Phone Unavailable Primary Care Provider [...] 02/27/2022 Active cholecalciferol (VITAMIN D-3) 1.25 MG (18686 UT) tablet Take 200 mcg by mouth [...] seizures Seizure 09/12/2021 Overview (03/25/2022): neurology at [facility] Last Assessment & Plan: [...] there has been staffing turnover in the [facility] and unclear if this could be impacting his medications. --Have called out to [facility] neurology to discussed antiepileptic therapy light [...]
[2025-04-21 21:16] LABS: Alanine Aminotransferase 15 U/L (0-40); Albumin Level 4.3 g/dL (3.5-5.0); Alkaline Phosphatase 40 U/L (39-117); Anion Gap 14 (12-20); Aspartate Amino Transferase 17 U/L (5-37); Blood Urea Nitrogen 13 mg/dL (9-16); Calcium 9.4 mg/dL (8.4-10.2); Carbon Dioxide 21 mmol/L (22-29); Chloride 109 mmol/L (96-108); Creatinine Clr Calc Pharmacy 114.6; Estimated Glomerular Filt Rate > 60; Magnesium 1.9 mg/dL (1.6-2.6); Potassium 4.1 mmol/L (3.3-5.1); Sodium 140 mmol/L (135-145); Total Protein 6.8 g/dL (6.5-8.0)
[2025-04-21 21:26] LABS: Troponin-I High Sensitivity < 2.7 ng/L (<3.5-35.0)
[2025-04-21 22:27] VITALS: BP 141/99; PULSE 79; RESP 18
[2025-04-21 22:43] LABS: Appearance Urine Clear; Glucose Urine UA Negative (Negative); PH 8.0 (5.0-9.0); Specific Gravity - Urine 1.010 (1.005-1.025)
[2025-04-21 22:54] LABS: Cannabinoid Screen Urine Not Detected (Not Detect)
[2025-04-22 01:05] VITALS: BP 144/94; PULSE 77; RESP 12; TEMP 36.3; O2SAT 100
[2025-04-22 04:01] VITALS: BP 136/94; PULSE 69; RESP 12; TEMP 36.6; O2SAT 97
[2025-04-22 04:12] VITALS: BP 136/94; PULSE 69; RESP 12; TEMP 36.6; O2SAT 97
[2025-04-25 22:38] LABS: Levetiracetam Keppra 77.9 mcg/mL (6.0-46.0)
== END 2025-04-22 04:13 | disposition home or self-care (01) ==
PROVIDERS: Emergency Provider Emergency Medicine
DX: G40.802 Other epilepsy, not intractable, without status epilepticus (principal); F79 Unspecified intellectual disabilities; G93.49 Other encephalopathy; Z79.899 Other long term (current) drug therapy
CPT/HCPCS: 36415; 70450; 80053; 80177; 80307; 81003; 83735; 84443; 84484; 85025; 93005; 96365; 96375; 99285; J1885; J1953

== ENCOUNTER → 2025-04-21 20:53 | Outpatient (BNV) | payer MEDICARE, MEDICAID, SELFPAY | PROVIDERS: Emergency Provider Emergency Medicine; Visit Provider Internal Medicine Cardiovascular Disease | DX: R56.9 Unspecified convulsions (principal) | CPT/HCPCS: 93010 ==

== ENCOUNTER → 2025-04-21 22:07 | Outpatient (BNV) | payer MEDICARE, MEDICAID, SELFPAY | PROVIDERS: Emergency Provider Emergency Medicine; Visit Provider Radiology Diagnostic Radiology | DX: R56.9 Unspecified convulsions (principal) | CPT/HCPCS: 70450 ==

== ENCOUNTER 2025-05-17 08:56 | Outpatient (AMB) | payer MEDICARE, MEDICAID, SELFPAY ==
--- NOTE | 2025-05-17 09:19 | A.OFFVIS_ITS ---
Intake Visit Reasons: 3m for epilepsy Allergies No Known Allergies (No Known Allergies*) Allergy (Verified 04/21/25 20:37) HPI Comments Details: 50 years old man with chronic intractable epilepsy (seizures causing staring, stiffness, unresponsiveness, shaking, post ictal confusion) from 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 He is presenting with epilepsy. He continues on his regular medication schedule, which includes Depakote, Levetiracetam, and Xcopri. He reported substantial improvement with the introduction of Xcopri. His labs, including liver enzymes a nd Depakote levels, have remained stable. The patient has not required any recent dosage adjustments or refills and expressed contentment with his current treatment regimen. [facility] Medical History Intractable epilepsy Recurrent seizures Intellectual disability Intractable seizure disorder Epileptic seizure Hyponatremia History of SIADH Seizure disorder Anxiety disorder, unspecified Surgical History No pertinent past surgical history Family History Other No family history of coronary artery disease Social History Household Members: Other Household Members Other:: retirement Housing: Other Housing Other:: retirement Do you presently have visiting nurse or other home services: Yes (25/01 staff at retirement) Alcohol intake: never Patient Tobacco Use Status: Never used Tobacco e-Cigarette/Vaping Use: Never Used Second Hand Smoke Exposure: No Advance Directives Date on File: 02/06/22 service: No Current occupational status: disabled Review of Systems Narrative - Neurological: Reports continuation of medication without seizures. - Gastrointestinal: Denies any issues, liver enzymes previously noted as stable. - General: Denies any difficulties in medication compliance or side effects. Physical Exam Neuro Other: Mental Status: Alert and awake with normal spontaneity of speech fluency comprehension and anxious affect. Cranial Nerves: CN II: Visual degroot full to confrontation, visual acuity intact. CN III, IV, : Pupils equal, round, reactive to light and accommodation. Extraocular movements are normal. CN V: Facial sensation is normal. CN VII: Facial movements symmetrical. CN VIII: Hearing intact to bedside conversation is normal. CN IX, X: Palate elevates symmetrically. CN XI: Shoulder shrug and head turn symmetrical. CN XII: Tongue midline without atrophy or fasciculations. Slow and cautious with a stooped posture. Extrapyramidal: Full facial expressions and blinking. No rigidity. Movements are appropriate with no tremor or abnormality. Speech: Normal; no dysarthria or tremor. Results Reviewed Results Reviewed: Laboratory Tests 04/21/25 20:52 WBC 5.4 Hgb 13.5 L Hct 39.5 L Plt Count 169 AST 17 ALT 15 Levetiracetam 77.9 H Assessment & Plan Assessment & Plan (1) Intractable epilepsy: Comment: CT brain WO at [facility] in Jun 2022: diff cortical atrophy, more so on left side CT brain WO at [facility] in Feb 2022: diff cortical atrophy. 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 c: Chronic static encephalopathy with CT revealing left cerebral hemiatrophy, which might have been caused by stroke before or around Rec: a: Divalproex acid 250mg, 5 in am and 4 in evening b: Levetiracetam 1000mg, 2 tabs twice a day c: XCopri 100mg one at night Coding Level of Care Code Est Pt Level 4 (11755) Global (19760) Diagnoses Intractable epilepsy without status epilepticus, unspecified epilepsy type G40.919 Epilepsy type: unspecified Status epilepticus: without status epilepticus Chronic static encephalopathy G93.49 Time Spent (min) 30 Comment Time spent answering his questions and counseling him
--- OUTSIDE RECORDS SUMMARY | 2025-05-17 09:38 | XMS_ITS | Clinical Summary ---
Author Organization [facility] Facility Address [address] [place] [id number] Care Team Providers Care Fur Floor Worker Name Role Phone Unavailable Primary Care Provider [...] 02/27/2022 Active cholecalciferol (VITAMIN D-3) 1.25 MG (27949 UT) tablet Take 200 mcg by mouth [...] seizures Seizure 09/12/2021 Overview (03/25/2022): neurology at [facility] Last Assessment & Plan: He [...] impacting his medications. --Have called out to [facility] neurology to discussed antiepileptic therapy light [...]
--- OUTSIDE RECORDS SUMMARY | 2025-05-17 09:38 | XMS_ITS | Clinical Summary ---
Author Organization 175 [facility] Address [address] [place] [address] Phone Care Team Providers Care Gastroenterology Nurse Practitioner Name Role Phone Morgan Rutherford MD Primary Care Provider [phone] Allergies No known active allergies Medications No known medications Encounters Date Type Department Care Team Description 04/17/2025 3:15 PM EDT Office Visit Orthopedic [facility] [address] [phone] Oskar Oconnell DPM Pain in both feet (Primary Dx); Arthritis of both feet; Metatarsalgia of right foot; Callus; Dermatophytosis, nail from Last 3 Months Social History Tobacco Use Types Packs/Day Years [...] Mass Index - - Plan of Treatment Upcoming Encounters Date Type Department Care Team (Late st Contact Info) Description 06/19/2025 3:00 PM EST Office Visit [facility]opedic [facility] [address] [phone] Oskar Oconnell DPM [address] [address] Health Maintenance Due Date Last Done Comments Hepatitis B Vaccines (1 of 3 - 19+ 3-dose series) 1996 Depression Screening 07/05/2024 Cholesterol Screening (Lipid Panel) 07/10/2024 HIV Screening 07/10/2024 Hepatitis C Screening 07/10/2024 Medicare Annual Wellness Visit 07/10/2024 Social Influencers of Health Screening 07/10/2024 COVID-19 Vaccine ( season) 2025 06/24/2021, 08/19/2020, 07/29/2020 Influenza Vaccine (#1) 2025 , 06/24/2018, 03/22/2017, Additional history exists Colorectal Cancer Screening: FIT-DNA (Cologuard) 11/11/2026 11/12/2023, 11/12/2023 DTaP,Tdap,and Td Vaccines (2 - Td or [...] Insurance MEDICARE MEDICA[place] - [place] Care Teams Gastroenterology Nurse Practitioner Relationship Specialty Start Date End Date Morgan Rutherford MD [address] [place] [address] PCP - General Family Medicine 07/10/24
--- OUTSIDE RECORDS SUMMARY | 2025-05-17 09:38 | XMS_ITS | Encounter Summary ---
Author Organization [facility] Address [address] [place] [address] Phone Care Team Providers Care Cigar Packing Examiner Name Role Phone Pcp, Unknown Primary Care Provider Unavailabl e Encounter Details Date Type Department Care Team (Late st Contact Info) Description 09/12/2021 Procedure Pass [facility], Ct Scan - [address] [address] Social History Tobacco Use Types Packs/Day Years [...] on filedocumented in this encounter Care Teams Cigar Packing Examiner Relationship Specialty Start Date End Date Pcp, Unknown PCP - General 09/12/21 documented as of this encounter Additional Source Comments The information contained in this document represents components of the legal health record. It is not the complete legal health record.[facility]
--- OUTSIDE RECORDS SUMMARY | 2025-05-17 09:38 | XMS_ITS | Clinical Summary ---
Author Organization [facility] Address [address] [place] [address] Phone Care Team Providers Care Assistant Paralegal Name Role Phone Pcp, Unknown Primary Care [...] 6 mg in 12 hours Active omega 7-aeb-tvt-fish oil 1,000 mg (120 mg-180 mg) Cap [...] there has been staffing turnover in the [facility] and unclear if this could be impacting his medications. --Have called out to [facility] neurology to discussed antiepileptic therapy light of [...] patient's age to complete this topic IPV VACCINES Aged Out No longer eligi ble [...] VALPROIC ACID 57.7 50.0 - 100.0 ug/mL [facility] Blood 09/14/2021 6:09 AM EDT 09/14/2021 7:30 AM EDT Rita Oliva MD LAB BLOOD BKR ORDERABLES Fi nal Result [address] [address] * Carbamazepine (Tegretol) level (09/14/2021 6:09 AM EDT) CARBAMAZEPINE 10.6 8.0 - 12.0 ug/mL [facility] Blood 09/14/2021 6:09 AM EDT 09/14/2021 7:30 AM EDT us Rita Oliva MD LAB BLOOD ORDERABLES Final Result [address] [address] from Last 3 Months or Most Recently Relevant to Health Maintenance Insurance [place] PART A [place] [id number] [facility] MEDICARE PART A & B [facility] MEDICARE [facility] A & [place] [facility] [facility] & [facility] B [facility] MEDICARE PART A & B [facility] Advance Directives For more information, please contact: [phone] (9AM - 5PM [facility], Wednesday-Wednesday) * Full Code (Latest Code Status on File) Date Activated Date Inactivated Comments 09/12/2021 10:30 PM Question Answer Comments Code Status Confirmed With: Family Code Status Communicated To: Inpatient Attending Care Teams Assistant Paralegal Relationship Specialty Start Date End Date Pcp, Unknown PCP - General 09/12/21 Additional Source Comments The information contained in this document represents components of the legal health record. It is not the complete legal health record.[facility]
== END 2025-05-17 09:28 | disposition home or self-care (01) ==
LOC: HO.HSM 08:57
PROVIDERS: Visit Provider Psychiatry & Neurology Neurology
DX: G40.919 Epilepsy, unspecified, intractable, without status epilepticus (principal); G93.49 Other encephalopathy
CPT/HCPCS: 99214; G2211

== ENCOUNTER → 2025-05-17 08:56 | Outpatient (BNVA) | payer MEDICARE, MEDICAID, SELFPAY | PROVIDERS: Visit Provider Psychiatry & Neurology Neurology | DX: G40.919 Epilepsy, unspecified, intractable, without status epilepticus (principal); G93.49 Other encephalopathy | CPT/HCPCS: 99212 ==

== ENCOUNTER 2025-06-05 16:45 | Emergency (ER) | payer MEDICARE, MEDICAID, SELFPAY ==
--- OUTSIDE RECORDS SUMMARY | 2025-06-01 23:59 | XMS_ITS | Continuity of Care Document ---
Author Organization [facility] Address [address] [place] [address]- Care Team Providers Care Keying Machine Operator Name Role Phone Krish ALATORRE, Morgan Velazquez Primary Care Physician [phone] [place] [facility] Date(s[place] 05/02/25 - 06/01/25 [facility] [address] [place] [address]- Encounter Type: Triage Allergies, Adverse Reactions, Alerts No Known Allergies Immunizations Given and Recorded Vaccine Date Status Refusal Reason influenza virus vaccine, inactivated 1 05/10/24 Gi maria e influenza virus vaccine, inactivated 2 06/24/18 Gi maria e influenza virus vaccine, inactivated 3 03/22/17 Gi maria e influenza virus vaccine, inactivated 04/18/15 Give n influenza virus vaccine, inactivated 06/16/13 Give n pneumococcal 20-valent conjugate vaccine 4 09/28/22 Given SARS-CoV-2 (COVID-19) mRNA-1273 vaccine 06/24/21 R ecorded SARS-CoV-2 (COVID-19) mRNA BNT-162b2 vac 08/19/20 Recorded SARS-CoV-2 (COVID-19) mRNA BNT-162b2 vac 07/29/20 Recorded tetanus-diphtheria toxoids (Td) 03/13/19 Recorded pneumococcal 23-valent vaccine 01/26/17 Given FluLaval (oldterm) 05/12/11 Given Tet/diphth/pertussis, acel (oldterm) 10/29/10 Give n 1Result Comment: OKAY TO GIVE FLU PER PCP 2Result Comment: [06/24/2018] [id number] 3Admin Note: [facility] [id number] 4Result Comment: [id number] Medications acetaminophen 325 mg oral tablet 2, tablet, By Mouth, Every 6 hours, PRN, If symptoms persist greater than 48 hours contact HCP for further instructions., # 120 tablet, Refills 0, Maintenance, NEEDED FOR BODY ACHES, BACK PAIN, ORTEMP >101, 07/21/24 1:42:00 PM EST, Route to Pharmacy Electronically, [facility], 170, cm, 05/10/24 13:10:00 EST, Height Start Date: 07/21/24 Status: Ordered Medication Dispense Status: Completed Quantity: 120.0 Unit: tablet Total Allowed Fills: 1 Fills Dispensed: 0 calcium carbonate 500 mg (200 mg elemental calcium) oral tablet, chewable 2, tablet, By Mouth, Daily in AM, # 56 tablet, Refills 11, Maintenance, 04/07/25 4:53:00 AM EDT, Route to Pharmacy Electronically, [facility], 162.3, cm, 01/04/25 11:30:00 EDT, Height Start Date: 04/07/25 Status: Ordered Medication Dispense Status: Completed Quantity: 56.0 Unit: tablet Total Allowed Fills: 1 Fills Dispensed: 0 Cepacol Sore Throat & Cough 7.5 mg-5 mg oral lozenge 1 lozenge, By Mouth, Every 2 hours, PRN NEEDED FOR SORE THROAT, # 48 each, 0 Refills, Acute, 07/14/19 1:09:00 PM EST, [id number], 21, DISSOLVE 1 LOZENGE IN MOUTH EVERY 2 HOURS NEEDEDFOR SORE THROAT, 165, cm, 06/29/19 9:37:00 EST, Height, 56.5, kg, 12/12/18 11:36:00 EDT, Dry Weight Start Date: 07/14/19 Status: Ordered Medication Dispense Status: Completed Quantity: 48.0 Unit: each Total Allowed Fills: 1 Fills Dispensed: 0 cetirizine 10 mg oral tablet See Instructions, TAKE 1 TABLET BY MOUTH DAILY NEEDED FOR POST NASAL DRIP. If symptoms persist greater than 48 hours contact PCP for further instructions., # 28 tablet, 5 Refills, Maintenance, 11/07/23 7:25:00 PM EDT, [facility], 170, cm, 10/27/23 13:36:00 EDT, Height, 57, kg, 01/09/22 17:04:00 EDT, Dry Weight Start Date: 11/07/23 Status: Ordered Medication Dispense Status: Completed Quantity: 28.0 Unit: tablet Total Allowed Fills: 6 Fills Dispensed: 0 clonazePAM 0.5 mg oral tablet See Instructions, TAKE 2 TABLETS (1MG) BY MOUTH EVERY MORNING AND TAKE 1 TABLET (0.5MG) AT 4PM AND AT 8PM, # 112 tablet, 5 Refills, Maintenance, 02/20/25 7:03:00 AM EDT, [facility], 162.3, cm, 01/04/25 11:30:00 EDT, Height Start Date: 02/20/25 Status: Ordered Medication Dispense Status: Completed Quantity: 112.0 Unit: tablet Total Allowed Fills: 6 Fills Dispensed: 0 cloNIDine 0.1 mg oral tablet 0.1 mg, 1, tablet, By Mouth, Daily in AM, Refills 0, Maintenance, 06/24/18 9:21:54 AM EST Start Date: 06/24/18 Status: Ordered Medication Dispense Status: Completed Total Allowed Fills: 1 Fills Dispensed: 0 Daily Ronni oral tablet 1 tablet, By Mouth, Daily in AM, # 28 tablet, 5 Refills, Maintenance, 03/03/25 9:47:00 PM EDT, [facility], 0, TAKE 1 TABLET BY MOUTH ONCE DAILY IN THE MORNING, 162.3, cm, 01/04/25 11:30:00 EDT, Height Start Date: 03/03/25 Status: Ordered Medication Dispense Status: Completed Quantity: 28.0 Unit: tablet Total Allowed Fills: 1 Fills Dispensed: 0 dextromethorphan-guaifenesin 10 mg-100 mg/5 mL oral liquid 10 mL, By Mouth, Every 4 hours, PRN NEEDED FOR COUGH IF SYMPTOMS PERSIST FOR GREATER THAN, 48 HOURS CONTACT HCP FOR FURTHER INSTRUCTIONS., # 148 mL, 0 Refills, Maintenance, 05/10/24 1:43:00 PM [facility], 3, 170, cm, 05/10/24 13:10:00 EST, Height Start Date: 05/10/24 Stop Date: 05/12/24 Status: Ordered Medication Dispense Status: Completed Quantity: 148.0 Unit: mL Total Allowed Fills: 1 Fills Dispensed: 0 diclofenac 1% topical gel See Instructions, APPLY TOPICALLY FOUR TIMES A DAY NEEDED FOR MILD PAIN, # 100 Gm, 5 Refills, Maintenance, 05/10/24 1:33:00 PM RADHA, [facility], 30, APPLY TOPICALLY FOUR TIMES A DAY NEEDED FOR MILD PAIN, 170, cm, 05/10/24 13:10:00 EST, Height Start Date: 05/10/24 Status: Ordered Medication Dispense Status: Completed Quantity: 100.0 Unit: g Total Allowed Fills: 6 Fills Dispensed: 0 divalproex sodium 250 mg oral enteric coated tablet See Instructions, Take 1,000mg by mouth once daily in the morning. Take 1,250mg by mouth once dailyin the evening., 0 Refills, Maintenance, 01/04/25 11:23:00 AM EDT, Partial fill upon patient request if the prescription is for a schedule II opioid drug. Start Date: 01/04/25 Status: Ordered Medication Dispense Status: Completed Total Allowed Fills: 1 Fills Dispensed: 0 divalproex sodium 500 mg oral enteric coated tablet = 1,250 mg, By Mouth, 2 times a day, Maintenance, 01/09/22 12:32:00 PM EDT, Partial fill upon patientrequest if the prescription is for a schedule II opioid drug. Start Date: 01/09/22 Status: Ordered Medication Dispense Status: Completed Total Allowed Fills: 1 Fills Dispensed: 0 docusate sodium 100 mg oral capsule 1 capsule, By Mouth, 2 times a day, # 60 capsule, 5 Refills, Maintenance, 04/27/25 3:45:00 PM EDT, [facility], 162.3, cm, 01/04/25 11:30:00 EDT, Height Start Date: 04/27/25 Status: Ordered Medication Dispense Status: Completed Quantity: 60.0 Unit: capsule Total Allowed Fills: 1 Fills Dispensed: 0 ENSURE SHAKES ENSURE SHAKES, See Instructions, # 3 each, Refills 0, Tot. Refills 0, Maintenance, Admin 1 can/bottle of Ensure (237ml/8oz bottle) 3 x a day at mealtimes only if he does not eat his meal., 04/09/22 11:26:00 AM EDT, Supply Start Date: 04/09/22 Status: Ordered Medication Dispense Status: Completed Quantity: 3.0 Unit: each Total Allowed Fills: 1 Fills Dispensed: 0 Fish Oil 1000 mg oral capsule 1 capsule, By Mouth, Daily in AM, # 28 capsule, 5 Refills, Maintenance, 03/03/25 9:47:00 PM EDT, [facility], 162.3, cm, 01/04/25 11:30:00 EDT, Height Start Date: 03/03/25 Status: Ordered Medication Dispense Status: Completed Quantity: 28.0 Unit: capsule Total Allowed Fills: 1 Fills Dispensed: 0 fluticasone 50 mcg/inh nasal spray 1 sprays = 50 mcg, Nares, Both, 2 times a day, PRN allergy symptoms, # 16 Gm, 11 Refills, Maintenance, 11/07/23 7:27:00 PM EDT, [place], [facility], Partial fill upon patient request if the prescription is for a schedule II opioid drug., 1 sprays Nares, Both 2 times a day,PRN:allergy symptoms, 170, cm, 10/27/23 13:36:00 EDT, Height, 57, kg, 01/09/22 17:04:00 EDT, Dry Weight Start Date: 11/07/23 Status: Ordered Medication Dispense Status: Completed Quantity: 16.0 Unit: g Total Allowed Fills: 12 Fills Dispensed: 0 Karena-Tussin DM 20 mg-200 mg/10 mL oral liquid See Instructions, TAKE 10ML BY MOUTH EVERY FOUR HOURS NEEDED FOR COUGH IF SYMPTOMS PERSIST FOR GREATER THAN 48 HOURS CONTACT HCP, # 148 mL, 5 Refills, Maintenance, 05/05/25 11:18:00 PM EDT, [id number], 3, TAKE 10ML BY MOUTH EVERY FOUR HOURS NEEDED FOR COUGH IF SYMPTOMS PERSIST FOR GREATER THAN 48 HOURS CONTACT HCP, 162.3, cm, 01/04/25 11:30:00 EDT, Height Start Date: 05/05/25 Status: Ordered Medication Dispense Status: Completed Quantity: 148.0 Unit: mL Total Allowed Fills: 6 Fills Dispensed: 0 levETIRAcetam 500 mg oral tablet 4 tablets, By Mouth, 2 times a day, Prescribed by Dr Holland, 0 Refills, Maintenance, 11/20/22 11:27:00 AM EDT, Partial fill upon patient request if the prescription is for a schedule II opioid drug. Start Date: 11/20/22 Status: Ordered Medication Dispense Status: Completed Total Allowed Fills: 1 Fills Dispensed: 0 loperamide 2 mg oral tablet 1 tablet, By Mouth, Every 4 hours, PRN NEEDED FOR LOOSE STOOL, IF SYMPTOMS PERSIST FOR, CONTACT HCP., # 30 tablet, 0 Refills, Maintenance, 07/21/24 1:42:00 PM EST, [facility], 170, cm, 05/10/24 13:10:00 EST, Height Start Date: 07/21/24 Stop Date: 07/23/24 Status: Ordered Medication Dispense Status: Completed Quantity: 30.0 Unit: tablet Total Allowed Fills: 1 Fills Dispensed: 0 Risperdal 0.5 mg oral tablet 1 tablet = 0.5 mg, By Mouth, 2 times a day, 0 Refills, 12/10/08 11:23:26 AM EDT Start Date: 12/10/08 Status: Ordered Medication Dispense Status: Completed Total Allowed Fills: 1 Fills Dispensed: 0 Vitamin D3 2000 intl units oral tablet 2 tablet, By Mouth, Daily in AM, # 60 tablet, 5 Refills, Maintenance, 03/03/25 9:47:00 PM EDT, [facility], 162.3, cm, 01/04/25 11:30:00 EDT, Height Start Date: 03/03/25 Status: Ordered Medication Dispense Status: Completed Quantity: 60.0 Unit: tablet Total Allowed Fills: 1 Fills Dispensed: 0 Xcopri = 100 mg, By Mouth, Daily at bedtime, 0 Refills, Maintenance, 04/21/23 1:26:00 PM EDT, Partial fillupon patient request if the prescription is for a schedule II opioid drug. Start Date: 04/21/23 Status: Ordered Medication Dispense Status: Completed Total Allowed Fills: 1 Fills Dispensed: 0 Problem List Condition Confirmation Course Effective Dates Status H ealth Status Informant Anoxic brain injury Confirmed Active Chronic back pain Confirmed Active Long-term use of antepileptics Confirmed Active Osteoporosis Confirmed Active Panic disorder Confirmed 12/18/09 Active Cognitive developmental delay Confirmed 12/18/09 Active pen[facility]entiary prescription benzodiazepine use Confirmed Active Seizure 1 Confirmed Active Seizure disorder Confirmed Active [place] Social History Social History Type Response Smoking Status Never smoker entered on: 12/08/17 Sex Sex Representation Male (finding) Patient Care team information Care Team Personnel Name: Chris Cunningham Position: [facility] Associate Professional Member Role: Lifetime Consulting Provider Address: [address] [facility] [place] [address]- Telecom: Name: Eric Holland MD Position: [facility] Physician - Neurology Member Role: Neurologist Address: [address] [place] [address]- [place] Telecom: Name: Morgan Rutherford MD Position: [facility] Physician - Primary Care Member Role: PCP Address: [address] [place] [address]- [place] Telecom: Name: Fernando Escalera MD Position: [facility] Outreach Member Role: Lifetime Consulting Physician Address: [address] [facility] [place] [address]- Telecom: Name: Curtis Lujan MD Position: [facility] Renal MD Member Role: Lifetime Consulting Physician Address: [address] [facility] [place] [address]- [place] Telecom: Care Team Related Persons Name: ESTELA ECKERT Name: KIM JACOBO Name: KIM JACOBO Name: EDER JACOBO Name: TANIA CROCKETT Insurance Providers Guarantor name: BRITT JACOBO Health Plan Information #: 1 Payer: MEDICARE B Payer Identifier: NA Member Number: [id number] Group Number: NA Subscriber Identifier: NA Relationship to Subscriber: self Coverage Type: NA Coverage Verification Date: NA Telecom: NA Address: NA Health Plan Information #: 2 Payer: Quarterly [employer]ER [employer] Payer Identifier: ROBERTO Member Number: [id number] Group Number: [id number] Subscriber Identifier: ROBERTO Relationship to Subscriber: self Coverage Type: MEDICAID Coverage Verification Date: Telecom: NA Address: NA
[2025-06-05 17:11] VITALS: BP 150/96; PULSE 76; O2SAT 99
[2025-06-05 17:14] VITALS: BP 150/100; PULSE 85; RESP 18; TEMP 35.3; O2SAT 98; BMI 26.2
--- NOTE | 2025-06-05 17:35 | PC.NURSE ---
Patient admitted via EMS for reported 5 seizures within the last 24 hours. Patient describes being conscious during seizure and unknown length during. Patient states seizures were witnessed by staff at nursing facility. States stress can trigger seizure activity. Patient hypertensive on admission. 2 IVs located in right forearm. Resting in bed.
--- OUTSIDE RECORDS SUMMARY | 2025-06-05 17:58 | XMS_ITS | Clinical Summary ---
Author Organization [facility] Address [address] [place] [address] Phone Care Team Providers Care Alteration Inspector Name Role Phone Pcp, Unknown Primary Care [...] 6 mg in 12 hours Active omega 6-jhs-hut-fish oil 1,000 mg (120 mg-180 mg) Cap [...] there has been staffing turnover in the snf and unclear if this could be impacting his medications. --Have called out to [facility] neurology to discussed antiepileptic therapy light [...] VALPROIC ACID 57.7 50.0 - 100.0 ug/mL [facility] Blood 09/14/2021 6:09 AM EDT 09/14/2021 7:30 AM EDT Rita Oliva MD LAB BLOOD BKR ORDERABLES Fi nal Result [address] [address] * Carbamazepine (Tegretol) level (09/14/2021 6:09 AM EDT) CARBAMAZEPINE 10.6 8.0 - 12.0 ug/mL [facility] Blood 09/14/2021 6:09 AM EDT 09/14/2021 7:30 AM EDT us Rita Oliva MD LAB BLOOD ORDERABLES Final Result Performing Organization Address City/[facility] [address]/ZIP Co de Phone Number [address] [address] from Last 3 Months or Most Recently Relevant to Health Maintenance Insurance [place] [id number] [facility] MEDICARE PART A & [place] [facility] MEDICARE PART A & [place] [facility] [facility] MEDICARE PART A & B [facility] Advance Directives For more information, please contact: [phone] (9AM - 5PM [facility], Wednesday-Wednesday) * Full Code (Latest Code Status on File) Date Activated Date Inactivated Comments 09/12/2021 10:30 PM Question Answer Comments Code Status Confirmed With: Family Code Status Communicated To: Inpatient Attending Care Teams Alteration Inspector Relationship Specialty Start Date End Date Pcp, Unknown PCP - General 09/12/21 Additional Source Comments The information contained in this document represents components of the legal health record. It is not the complete legal health record.[facility]
--- OUTSIDE RECORDS SUMMARY | 2025-06-05 17:58 | XMS_ITS | Clinical Summary ---
Author Organization 175 [facility] Address [address] [place] [address] Phone Care Team Providers Care Technology Sales Representative Name Role Phone Morgan Rutherford MD Primary Care Provider [phone] Allergies No known active allergies Medications No known medications Encounters Date Type Department Care Team Description 04/17/2025 3:15 PM EDT Office Visit Orthopedic [facility] [address] [phone] Oskar Oconnell DPM Pain in both feet [...] 06/19/2025 3:00 PM EST Office Visit Orthopedic [facility] [address] [phone] Oskar Oconnell DPM [address] [address] Health Maintenance Due Date Last Done Comments [...] Insurance MEDICARE MEDICAID - [place] Care Teams Technology Sales Representative Relationship Specialty Start Date End Date Morgan Rutherford MD [address] [place] [address] PCP - General Family Medicine 07/10/24
--- OUTSIDE RECORDS SUMMARY | 2025-06-05 17:58 | XMS_ITS | Clinical Summary ---
Author Organization [facility] Address [address] [place] [address] Care Team Providers Care Machine Shop Instructor Name Role Phone Unavailable Primary Care Provider [...] 02/27/2022 Active cholecalciferol (VITAMIN D-3) 1.25 MG (72979 UT) tablet Take 200 mcg by mouth [...] seizures Seizure 09/12/2021 Overview (03/25/2022): neurology at [facility] Last Assessment & Plan: He has a [...] there has been staffing turnover in the correction and unclear if this could be impacting his medications. --Have called out to [facility] neurology to discussed antiepileptic [...]
--- OUTSIDE RECORDS SUMMARY | 2025-06-05 17:58 | XMS_ITS | Encounter Summary ---
Author Organization [facility] Address [address] [place] [address] Phone Care Team Providers Care Acquisition Manager Name Role Phone Pcp, Unknown Primary Care Provider Unavailabl e Encounter Details Date Type Department Care Team (Late st Contact Info) Description 09/12/2021 Procedure Pass [facility], Ct Scan - [address] [address] Social History Tobacco Use Types Packs/Day Years [...] on filedocumented in this encounter Care Teams Acquisition Manager Relationship Specialty Start Date End Date Pcp, Unknown PCP - General 09/12/21 documented as of this encounter Additional Source Comments The information contained in this document represents components of the legal health record. It is not the complete legal health record.[facility]
--- NOTE | 2025-06-05 18:41 | ECG_ITS ---
Test Reason : seizure Blood Pressure : */* mmHG Vent. Rate : 70 BPM Atrial Rate : * BPM P-R Int : * ms QRS Dur : 88 ms QT Int : 360 ms P-R-T Axes : * 23 46 degrees QTcB Int : 388 ms Normal sinus rhythm Normal EKG When compared with ECG of 21-Apr-2025 20:53, No significant changes seen Referred By: Candido Waters Electronically Signed By: LUIS GÓMEZ
--- NOTE | 2025-06-05 18:44 | PC.NURSE ---
PATIENT GAVE ME SHEET WITH LEGAL GUARDIAN AND EMERGENCY CONTACT. Guardian: Kimberly Anaya . Emergency Contact: Kimberly and Herb
[2025-06-05] MEDS: levETIRAcetam in NaCl (iso-os) 1,000 MG/100 ML PIGGYBACK 400 MG IV (19:22)
--- NOTE | 2025-06-05 19:22 | PC.NURSE ---
18 g IV right AC from EMS
[2025-06-05 19:31] VITALS: BP 138/100; PULSE 74; RESP 20; TEMP 36.4; O2SAT 98
--- NOTE | 2025-06-05 19:40 | ED.GENADULT ---
HPI - General Adult General Chief complaint: Seizure Stated complaint: intermediate 5 seizures since 3am Time Seen by Provider: 06/05/25 17:57 Source: patient, RN notes reviewed and old records reviewed Mode of arrival: EMS Limitations: other (intellectual disability) History of Present Illness ED Provider: Evelin HPI narrative: 50-year-old male past medical history significant for chronic static encephalopathy, seizure disorder, intellectual disability, mood disorder, anxiety presents for evaluation of 5 reported seizures. The patient presents from intermediate. He reports 5 seizure today's lasting a few sec at a time pain None of the seizures were witnessed. The patient reports that he was ?shaking all over. He reports that he was awake during these seizure episodes and they all lasted a few sec The patient reports being compliant with his medications. He reports that his 1st seizure was around 3:00 a.m. in his last seizure was just prior to arrival. He reports that the weather changing and so typically leads to onset of seizures for him. He takes Keppra and Depakote He was lying in bed when all of his seizures occurred and there was no fall or trauma. Currently he has pain in his left hand what she believes is related to his arthritis and chronic. He denies any recent injury No other complaints or concerns at this time Related Data Home Medications ?Medication ?Instructions ?Recorded ?Confirmed cetirizine 10 mg tablet (Zyrtec) 10 mg PO DAILY PRN allergies 12/31/21 02/28/25 cholecalciferol (vitamin D3) 50 100 mcg PO DAILY 12/31/21 02/28/25 mcg (2,000 unit) tablet (Vitamin D3) clonazepam 0.5 mg tablet 0.5 mg PO BID@1600,2000 12/31/21 02/28/25 diclofenac sodium 1 % topical gel 1 ea topical Q6H PRN Pain (Scale 12/31/21 02/28/25 Score 4-6) docusate sodium 100 mg capsule 100 mg PO BID 12/31/21 02/28/25 (Colace) multivitamin 1 tab PO DAILY 12/31/21 02/28/25 omega 5-hws-eul-fish oil 1,000 mg 1 cap PO DAILY 12/31/21 02/28/25 (120 mg-180 mg) capsule (Fish Oil) acetaminophen 325 mg tablet 650 mg PO Q6H PRN Pain or fever 04/08/22 02/28/25 (Tylenol) loperamide 2 mg tablet (Imodium 2 mg PO Q4H PRN Loose Stool 04/08/22 02/28/25 A-D) clonidine HCl 0.1 mg tablet 0.1 mg PO DAILY PRN Agitation 06/12/22 02/28/25 calcium carbonate 1,000 mg PO DAILY 07/04/23 02/28/25 dextromethorphan-guaifenesin 10 10 ml PO Q4H PRN Cough 07/04/23 02/28/25 mg-100 mg/5 mL oral liquid (Karena-Tussin DM) clonazepam 1 mg tablet 1 mg PO DAILY 09/11/23 02/28/25 risperidone 0.5 mg tablet 1 mg PO BID 03/30/25 Previous Rx's ?Medication ?Instructions ?Recorded cenobamate 100 mg tablet (Xcopri) 100 mg PO BEDTIME #90 tabs 03/22/25 divalproex 250 mg tablet,delayed 1,250 mg (5 x 250 mg) PO QAM #450 04/11/25 release tabs divalproex 250 mg tablet,delayed 1,000 mg (4 x 250 mg) PO QPM #360 04/12/25 release tabs divalproex 250 mg tablet,delayed 250 mg PO .COMPLEX 90 days #810 04/17/25 release tabs levetiracetam 1,000 mg tablet 2,000 mg (2 x 1,000 mg) PO BID 30 04/18/25 days #120 tabs Allergies Allergy/AdvReac Type Severity Reaction Status Date / Time No Known Allergies (No Known Allergy Verified 06/05/25 17:21 Allergies*) Review of Systems Constitutional: Constitutional: Denies body ache(s), Denies chills, Denies fever(s) and Denies headache(s) Eyes: Eyes: Denies blurry vision ENT: Denies dizziness and Denies headache(s) Cardiovascular: Cardiovascular: Denies chest pain and Denies dyspnea on exertion Respiratory: Respiratory: Denies cough and Denies dyspnea on exertion Gastrointestinal: Gastrointestinal: Denies abdominal pain Musculoskeletal: Musculoskeletal: Denies back pain Integumentary/Breasts: Skin/Breast: Denies rash Neurologic: Denies dizziness, Denies headache(s), Reports convulsions and Reports seizure-like activity Psychiatric: Psychiatric: Denies anxiety PMFSH Past Medical History Medical History Intractable epilepsy Recurrent seizures Intellectual disability Intractable seizure disorder Epileptic seizure Hyponatremia History of SIADH Seizure disorder Anxiety disorder, unspecified Surgical History No pertinent past surgical history Family History Family History Other No family history of coronary artery disease Social History Social History Household Members: Other Household Members Other:: intermediate Housing: Other Housing Other:: intermediate Do you presently have visiting nurse or other home services: Yes (25/01 staff at intermediate) Alcohol intake: never Patient Tobacco Use Status: Never used Tobacco Smoked in Last 30 Days: No e-Cigarette/Vaping Use: Never Used Second Hand Smoke Exposure: No Use of substances other than those prescribed or required for medical reasons: No Advance Directives: Yes Advance Directives on File: Yes Advance Directives Date on File: 02/06/22 Do you have a plan to hurt others: No Plan service: No Current occupational status: disabled Physical Exam ED Vital Signs: Vital Signs - 24 hr 06/05/25 17:14 06/05/25 19:31 Temperature 95.6 F L 97.5 F Pulse Rate 85 74 Respiratory Rate 18 20 Blood Pressure 150/100 H 138/100 H Pulse Oximetry 98 98 Oxygen Delivery Method Room Air Room Air BMI result Body Mass Index 26.2 Const General: healthy appearing, comfortable, no acute distress, alert and awake Nutritional Appearance: well nourished Orientation/consciousness: patient oriented x3 HENMT Head: Yes normocephalic and Yes atraumatic Eyes Other: + strabismus Eyelids: Yes eyelids normal Conjunctivae: conjunctivae normal Sclerae: sclerae normal Corneas: corneas normal Pupils: Equal, round and reactive pupils present EOM: EOMs intact bilaterally Neck Neck: Yes full ROM Resp Effort & Inspection: normal respiratory effort, able to speak in complete sentences and not labored Cardio Rate: regular rate Rhythm: regular rhythm GI Inspection: No distended Palpation (GI): Soft to palpation, not firm, nontender, no guarding and not rigid Skin General skin exam: elasticity normal Neuro General: patient oriented x3 Cranial nerves: Yes CN's II-XII intact bilaterally, Yes Equal, round and reactive pupils present and Yes Bilaterally intact EOM present Cognition (Neuro): normal cognition Extrem Other: Moving all extremities well without any obvious deformities Course Reevaluation(s) Reevaluation #1: The patient has been in the ER for approximately 4 hours with no observed seizure activity, his labs and vitals have remained reassuring. The patient is stable for discharge back to his facility Time: 20:54 Medications Administered Discontinued Medications Generic Name Dose Route Start Last Admin Trade Name Freq PRN Reason Stop Dose Admin Levetiracetam 1,000 mg in 100 mls @ 400 mls/hr 06/05/25 19:07 06/05/25 19:37 Keppra IV 06/05/25 19:21 Infused ONCE ONE Infusion Medical Decision Making Medical Decision Making MDM Narrative: 50-year-old male with past medical history as above presents for evaluation of 5 reported but unwitnessed seizures pending today. He reports being compliant with medications. We will give him a dose of Keppra IV pending workup. 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 Basic labs will be checked including a lactic acid in his CPK. The patient is not postictal, he is answering all questions appropriately. Differential Diagnosis Differential Diagnoses: The differential diagnosis associated with the presentation includes Epilepsy Seizure disorder Chronic static encephalopathy Pseudoseizures Rhabdomyolysis Admission/Observation Consideration of admission/observation: Escalation of care including admission/observation considered Lab Data 06/05/25 19:37 06/05/25 19:37 Labs: Lab Results 06/05/25 Range/Units 19:37 WBC 5.1 (4.8-10.8) X10*3/uL RBC 4.54 L (4.60-5.80) X10*6/uL Hgb 14.7 (14.0-18.0) g/dl Hct 43.2 (42.0-52.0) % MCV 95.2 (80.0-98.0) fL MCH 32.4 (27.0-33.0) pg MCHC 34.0 (31.0-36.0) g/dl RDW 12.6 (11.0-16.0) % Plt Count 176 (160-400) X10*3/uL MPV 10.4 (9.4-12.4) fL Immature Gran % (Auto) 0.2 (0.0-0.4) % Neut % (Auto) 59.6 (45-73) % Lymph % (Auto) 32.2 (20-40) % [place] % (Auto) 7.6 (2-11) % Eos % (Auto) 0.0 (0-4) % Baso % (Auto) 0.4 (0-2) % Lymph # (Auto) 1.6 (1.2-4.9) X10*3/uL [place] # (Auto) 0.4 (0.1-1.2) X10*3/uL Eos # (Auto) 0.0 (0.0-0.4) X10*3/uL Baso # (Auto) 0.0 (0.0-0.2) X10*3/uL Abs Immat Gran (auto) 0.01 (0.00-0.03) X10*3/uL Absolute Neuts (auto) 3.0 (2.0-8.3) x10*3/uL Absolute Nucleated RBC 0.000 (0.0-0.012) X10*3/uL Nucleated RBC % (auto) 0.0 (0.0-0.2) /100WBC Sodium 143 (135-145) mmol/L Potassium 4.3 (3.3-5.1) mmol/L Chloride 106 (96-108) mmol/L Carbon Dioxide 26 (22-29) mmol/L Anion Gap 15 (12-20) BUN 11 (9-16) mg/dL Creatinine 0.69 (0.5-1.4) mg/dL Estim Creat Clear Calc 105.3 Estimated GFR > 60 Random Glucose 93 (60-115) mg/dL Lactic Acid 0.9 (0.5-2.0) mmol/L Calcium 9.7 (8.4-10.2) mg/dL Magnesium 1.8 (1.6-2.6) mg/dL Total Bilirubin 0.3 (0.0-1.0) mg/dL AST 20 (5-37) U/L ALT 18 (0-40) U/L Alkaline Phosphatase 44 (39-117) U/L Total Creatine Kinase 102 (38-174) U/L Troponin I High Sens < 2.7 (<3.5-35.0) ng/L Total Protein 7.4 (6.5-8.0) g/dL Albumin 4.7 (3.5-5.0) g/dL Lipase 20 (8-78) U/L Valproic Acid 67.4 (50.0-100.0) mcg/mL Discharge Plan Discharge Clinical Impression: Seizure disorder Patient Disposition: Home, Self-Care Instructions: Recurrent Seizures in Adults (ED) Additional Instructions: Your workup in the ER today was reassuring. This includes all of your blood work. You had no seizure-like activity while in the hospital. You were given an additional dose of Keppra. You may resume all of your normal medications as prescribed Prescriptions: No Action Xcopri 100 mg tablet 100 mg PO BEDTIME Qty: 90 0RF divalproex 250 mg tablet,delayed release (DR/EC) 1,250 mg PO QAM Qty: 450 1RF divalproex 250 mg tablet,delayed release (DR/EC) 1,000 mg PO QPM Qty: 360 0RF divalproex 250 mg tablet,delayed release (DR/EC) 250 mg PO .COMPLEX 90 Days Qty: 810 0RF Rx Instructions: 250 mg orally 5 in am and 4 at night; levetiracetam 1,000 mg tablet 2,000 mg PO BID 30 Days Qty: 120 5RF multivitamin Tablet 1 tab PO DAILY cetirizine [Zyrtec] 10 mg Tablet 10 mg PO DAILY PRN (Reason: allergies) clonazepam 0.5 mg tablet 0.5 mg PO BID@1600,2000 docusate sodium [Colace] 100 mg Capsule 100 mg PO BID diclofenac sodium 1 % Gel 1 ea TOPICAL Q6H PRN (Reason: Pain (Scale Score 4-6)) cholecalciferol (vitamin D3) [Vitamin D3] 50 mcg (2,000 unit) Tablet 100 mcg PO DAILY omega [id number] oil [Fish Oil] 1,000 mg (120 mg-180 mg) Capsule 1 cap PO DAILY acetaminophen [Tylenol] 325 mg Tablet 650 mg PO Q6H PRN (Reason: Pain or fever) loperamide [Imodium A-D] 2 mg Tablet 2 mg PO Q4H PRN (Reason: Loose Stool) Rx Instructions: administer after each loose stool until symptoms controlled; do not exceed 8 mg per 24 hrs clonidine HCl 0.1 mg Tablet 0.1 mg PO DAILY PRN (Reason: Agitation) dextromethorphan-guaifenesin [Karena-Tussin DM] 10-100 mg/5 mL Liquid 10 ml PO Q4H PRN (Reason: Cough) calcium carbonate 500 mg calcium (1,250 mg) Tablet 1,000 mg PO DAILY clonazepam 1 mg Tablet 1 mg PO DAILY risperidone 0.5 mg tablet 1 mg PO BID Print Language: Venezuelan
[2025-06-05 19:42] LABS: MANUAL DIFF FLAG NO
[2025-06-05 19:44] LABS: Hematocrit 43.2 % (42.0-52.0); Hemoglobin 14.7 g/dl (14.0-18.0); Imm Gran Abs Auto 0.01 X10*3/uL (0.00-0.03); Imm Gran Pct Auto 0.2 % (0.0-0.4); Lymphocytes Absolute Auto 1.6 X10*3/uL (1.2-4.9); Mean Corpuscular HGB Conc 34.0 g/dl (31.0-36.0); Mean Corpuscular Hemoglobin 32.4 pg (27.0-33.0); Mean Corpuscular Volume 95.2 fL (80.0-98.0); NRBC Abs Auto 0.000 X10*3/uL (0.0-0.012); NRBC Pct Auto 0.0 /100WBC (0.0-0.2); Platelet Count 176 X10*3/uL (160-400); Red Blood Count 4.54 X10*6/uL (4.60-5.80); White Blood Count 5.1 X10*3/uL (4.8-10.8)
[2025-06-05 20:00] LABS: Alanine Aminotransferase 18 U/L (0-40); Albumin Level 4.7 g/dL (3.5-5.0); Alkaline Phosphatase 44 U/L (39-117); Anion Gap 15 (12-20); Aspartate Amino Transferase 20 U/L (5-37); Blood Urea Nitrogen 11 mg/dL (9-16); Calcium 9.7 mg/dL (8.4-10.2); Carbon Dioxide 26 mmol/L (22-29); Chloride 106 mmol/L (96-108); Creatinine Clr Calc Pharmacy 105.3; Estimated Glomerular Filt Rate > 60; Lipase 20 U/L (8-78); Magnesium 1.8 mg/dL (1.6-2.6); Potassium 4.3 mmol/L (3.3-5.1); Sodium 143 mmol/L (135-145); Total Protein 7.4 g/dL (6.5-8.0)
[2025-06-05 20:07] LABS: Troponin-I High Sensitivity < 2.7 ng/L (<3.5-35.0)
[2025-06-05 21:06] VITALS: BP 155/93; PULSE 75; RESP 16; TEMP 36.4; O2SAT 98
[2025-06-08 09:33] LABS: Levetiracetam Keppra 33.0 mcg/mL (10.0-40.0)
== END 2025-06-05 21:07 | disposition home or self-care (01) ==
PROVIDERS: Physician Assistant; Emergency Provider Student in an Organized Health Care Education/Training Program
DX: Z79.899 Other long term (current) drug therapy (principal); R53.1 Weakness
CPT/HCPCS: 36415; 80053; 80164; 80177; 82550; 83605; 83690; 83735; 84484; 85025; 93005; 96374; 99284; 99285; J1953

== ENCOUNTER → 2025-06-05 18:41 | Outpatient (BNV) | payer MEDICARE, MEDICAID, SELFPAY | PROVIDERS: Emergency Provider Student in an Organized Health Care Education/Training Program; Visit Provider Internal Medicine | DX: R56.9 Unspecified convulsions (principal) | CPT/HCPCS: 93010 ==

== ENCOUNTER 2025-06-11 10:05 | Outpatient (AMB) | payer MEDICARE, MEDICAID, SELFPAY ==
--- NOTE | 2025-06-11 10:22 | MHC.OFFVIS ---
Intake Visit Reasons: ed follow up Allergies No Known Allergies (No Known Allergies*) Allergy (Verified 06/05/25 17:21) HPI Comments Details: 50 years old man with chronic intractable epilepsy (seizures causing staring, stiffness, unresponsiveness, shaking, post ictal confusion) from 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 He is presenting for follow-up after experiencing multiple recent seizure. He denies missing any doses of his medication and attributes the seizure to stress from the upcoming holidays. Recent laboratory tests, including a CBC, metabolic profile, and liver enzymes, were all normal. His current medication regimen consists of four Depakote pills taken at night. [facility] Medical History Intractable epilepsy Recurrent seizures Intellectual disability Intractable seizure disorder Epileptic seizure Hyponatremia History of SIADH Seizure disorder Anxiety disorder, unspecified Surgical History No pertinent past surgical history Family History Other No family history of coronary artery disease Social History Household Members: Other Household Members Other:: half-way Housing: Other Housing Other:: half-way Do you presently have visiting nurse or other home services: Yes (25/01 staff at half-way) Alcohol intake: never Patient Tobacco Use Status: Never used Tobacco e-Cigarette/Vaping Use: Never Used Second Hand Smoke Exposure: No Advance Directives Date on File: 02/06/22 service: No Current occupational status: disabled Review of Systems Narrative - Neurological: Reports a recent seizure. - Psychiatric: Reports increased stress due to the upcoming holidays. - Genitourinary: Reports normal urination. Physical Exam Neuro Other: Mental Status: Alert and oriented to person, place, and time. Normal attention. Normal spontaneous speech, fluency, and comprehension. Cranial Nerves: CN II: Visual degroot full to confrontation, visual acuity intact. CN III, IV, : Pupils equal, round, reactive to light and accommodation. Extraocular movements are normal. CN V: Facial sensation is normal. CN VII: Facial movements symmetrical. CN VIII: Hearing intact to bedside conversation is normal. CN IX, X: Palate elevates symmetrically. CN XI: Shoulder shrug and head turn symmetrical. CN XII: Tongue midline without atrophy or fasciculations. Extrapyramidal: Full facial expressions and blinking. No rigidity. Movements are appropriate with no tremor or abnormality. Speech: Normal; no dysarthria or tremor. Results Reviewed Results Reviewed: Laboratory Tests 06/05/25 19:37 Valproic Acid 67.4 Levetiracetam 33.0 Assessment & Plan Assessment & Plan (1) Intractable epilepsy: Comment: [place] brain [place] [facility] [place]: diff cortical atrophy, more so on left side CT brain WO at [facility] [place] Feb 2022: diff cortical atrophy. 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 To improve seizure control, I recommended increasing his Depakote dose from four to five pills, explaining that this will improve his seizure situation. I informed him that I will discontinue his current prescription and send a new one to the pharmacy. We will have a follow-up appointment in three months to reassess. Medications: New divalproex 1,250 mg (5 x 250 mg) PO BID 300 tabs 2RF folic acid 1 mg PO DAILY 90 tabs 1RF Discontinued divalproex Discontinued Reason: Doctor's Order 1,250 mg (5 x 250 mg) PO QAM 450 tabs 1RF divalproex Discontinued Reason: Doctor's Order 1,000 mg (4 x 250 mg) PO QPM 360 tabs 0RF Coding Level of Care Code Est Pt Level 4 (87359) Diagnoses Intractable epilepsy without status epilepticus, unspecified epilepsy type G40.919 Epilepsy type: unspecified Status epilepticus: without status epilepticus Intellectual disability F79 Chronic static encephalopathy G93.49
== END 2025-06-11 10:32 | disposition home or self-care (01) ==
LOC: HO.HSM 10:06
PROVIDERS: Visit Provider Psychiatry & Neurology Neurology
DX: G40.919 Epilepsy, unspecified, intractable, without status epilepticus (principal); F79 Unspecified intellectual disabilities; G93.49 Other encephalopathy
CPT/HCPCS: 99214

== ENCOUNTER → 2025-06-11 10:05 | Outpatient (BNVA) | payer MEDICARE, MEDICAID, SELFPAY | PROVIDERS: Visit Provider Psychiatry & Neurology Neurology | DX: G40.919 Epilepsy, unspecified, intractable, without status epilepticus (principal); F79 Unspecified intellectual disabilities; G93.49 Other encephalopathy | CPT/HCPCS: 99212 ==